=== PATIENT | male | born 1935 | race Caucasian/White ===

== ENCOUNTER 2019-09-25 09:38 | Inpatient (IN) | payer OTHER, MEDICARE ==
--- NOTE | 2019-09-25 09:44 | PDOC ---
History of Present Illness - General Stated Complaint: GENERALIZED WEAKNESS Time Seen by Provider: 09/25/19 09:42 History Source: Patient Exam Limitations: No Limitations - History of Present Illness Initial Comments: 84-year-old male with past medical history of hypertension, hyperlipidemia, CHF, diabetes, COPD, CAD status post CABG 2008, prostate cancer, recurrent pneumonia requiring hospitalization 2018 with home 02 at discharge (normal = 2L NC), atrial fibrillation on Xarelto presented to the emergency department for generalized weakness. Patient reported he was prescribed antibiotic yesterday by his primary care doctor, because he began to have bloody cough. He reported he took one dose, but felt very weak today, after he sat down on the toilet to use the bathroom, he was unable to get himself up, due to lack of strength. He denies chest pain, fever, lightheadedness, syncope, abdominal pain, nausea, vomiting, diarrhea, weakness, numbness. EMS reported when they arrived he was satting 89% on 2L, they bumped him up to 6L NC. ROS General: admitted to generalized weakness. denied fever, chills. HEENT: denied sore throat, rhinorrhea, ear pain. Cardiovascular: denied chest pain, palpitations, syncope, diaphoresis. Respiratory: denied shortness of breath, cough, sputum production, hemoptysis. Gastrointestinal: denied abdominal pain, nausea, vomiting, diarrhea, constipation, blood in stool. Genitourinary: denied dysuria, increased urinary frequency, hematuria, urinary incontinence, flank pain. Back: denied back pain. Musculoskeletal: denied joint pain, muscle pain, joint swelling. Neurological: denied headache, dizziness, numbness, tingling, weakness. Integumentary: denied rash, laceration, abrasion. Hematologic/Lymphatic: denied bruising or bleeding. PE Constitutional: Well-nourished, Well-developed, appearing stated age. HEENT: head is normocephalic, atraumatic. EOMI. PERRLA. Neck: supple. Full ROM. Cardiovascular: regular heart rhythm. Normal S1 and S2. no murmurs. no pericardial friction rub. Respiratory: crackles to left base. Gastrointestinal: soft, flat, nontender. normal bowel sounds. no rebound, guarding, or masses. Extremities: peripheral pulses intact and equal. no lower extremity edema noted. Neurological: CN 2-12 grossly intact. moves all four extremities. Psych: awake, alert, oriented x3. follows commands. answers questions appropriately. Past History - Medical History Allergies/Adverse Reactions: Allergies Allergy/AdvReac Type Severity Reaction Status Date / Time No Known Allergies Allergy Verified 09/25/19 10:01 Home Medications: Ambulatory Orders Amlodipine Besylate 10 mg PO DAILY 09/25/19 Apixaban [Eliquis] 2.5 mg PO DAILY 09/25/19 Atorvastatin Ca [Lipitor] 80 mg PO HS 09/25/19 Carbidopa/Levodopa *Cr* 50/200 [Sinemet *Cr* 50/200 -] 1 tab PO DAILY 09/25/19 Carvedilol 25 mg PO DAILY 09/25/19 Cefotaxime Sodium 500 mg PO DAILY 09/25/19 Doxazosin Mesylate 2 mg PO DAILY 09/25/19 Empagliflozin [Jardiance] 25 mg PO DAILY 09/25/19 Ergocalciferol (Vitamin D2) [Vitamin D2] 5,000 unit PO WEEKLY 09/25/19 Furosemide 20 mg PO DAILY 09/25/19 Glimepiride 1 mg PO DAILY 09/25/19 Hydralazine HCl 25 mg PO DAILY 09/25/19 Losartan Potassium 50 mg PO DAILY 09/25/19 Pantoprazole Sodium 40 mg PO DAILY 09/25/19 Ranolazine [Ranexa -] 500 mg PO BID 09/25/19 Tiotropium [place] [Spiriva] 1 inh PO DAILY 09/25/19 - Surgical History Cardiac Surgery: Yes (CABG x 3, carotid endartorectomy) - Immunization History Immunization Up to Date: Yes - Psycho-Social/Smoking History Smoking Status: Yes Smoking History: Never smoked Have you smoked in the past 12 months: No Number of Cigarettes Smoked Daily: 0 If you are a former smoker, when did you quit?: 1986 Cigars Per Day: 0 ED Treatment Course - LABORATORY CBC & Chemistry Diagram: 09/25/19 10:30 09/25/19 10:30 Medical Decision Making - Medical Decision Making 84 year old male with above PMH presented to ED for generalized weakness, Initial Vital Signs Temp Pulse Resp BP Pulse Ox 97.8 F 60 20 159/53 L 100 09/25/19 10:00 09/25/19 10:00 09/25/19 10:00 09/25/19 10:00 09/25/19 10:00 EKG 0946: rate 57, regular rhythm, left axis, [place] 206, first degree AV block, QTc 467, nonspecific ST changes. 09/25/19 12:37 CXR report: Ricki Hoffman Name: [facility] DEPARTMENT OF RADIOLOGY Phys: Charisma Cintron RESIDENT : [id number] Age: 84 Sex: M [facility] Acct: [id number] Loc: [address] Exam Date: 09/25/19 Status: [place] [id number] Unit Number: [id number] EXAM#: TYPE/EXAM: RESULT: RAD/CHEST PA LAT Hemoptysis and crackles in the left lung base Chest x-ray, AP sitting and lateral Since prior chest x-ray dated 09/28/2014, the cardiac silhouette remains slightly enlarged. Interval worsening interstitial and airspace opacities is suggestive of mild ve nous congestion plus or minus pneumonic infiltrates. No gross pneumothorax or pleural effusion are identified Impression: See discussion above. Reported By: Ayaan Denise MD 09/25/195 CHARISMA CINTRON Technologist: Miri Enamorado Transcribed Date/Time: 09/25/191234 Film Replacement Orderer: Ayaan Denise Printed Date/Time: By: Concern for COVID vs CHF exacerbation vs COPD. Will give steroids, COVID test, antibiotics. HCAP, last admitted 2018. Plethoric IVC on bedside ultrasound, decreased cardiac squeeze on bedside ultrasound. Will hold fluid resuscitation for now. Medications ordered Azithromycin Ivpb [Zithromax Ivpb -] 500 mg Dextrose 5%-Water - [D5w -] 250 ml IVPB ONCE Ceftriaxone 1gm - 1X (ONCE) Ceftriaxone [Rocephin -] 1 gm Dextrose 5%-Water - [D5w -] 100 ml IVPB ONCE Methylprednisolone Na Succ [Solu-Medrol -] 125 mg IVPUSH ONCE ONE 09/25/19 13:08 Laboratory Last Values WBC 5.7 K/mm3 (4.0-10.0) 09/25/19 10:30 RBC 3.33 M/mm3 (4.00-5.60) L 09/25/19 10:30 Hgb 9.2 GM/dL (11.7-16.9) L 09/25/19 10:30 Hct 28.6 % (35.4-49) L 09/25/19 10:30 MCV 85.9 fl (80-96) 09/25/19 10:30 MCH 27.6 pg (25.7-33.7) 09/25/19 10:30 MCHC 32.1 g/dl (32.0-35.9) 09/25/19 10:30 RDW 16.5 % (11.9-15.9) H 09/25/19 10:30 Plt Count 149 K/MM3 (134-434) D 09/25/19 10:30 MPV 9.8 fl (7.5-11.1) D 09/25/19 10:30 Absolute Neuts (auto) 4.4 K/mm3 (1.5-8.0) 09/25/19 10:30 Neutrophils % 77.3 % (42.8-82.8) 09/25/19 10:30 Lymphocytes % 7.5 % (8-40) L D 09/25/19 10:30 Monocytes % 12.6 % (3.8-10.2) H 09/25/19 10:30 Eosinophils % 2.1 % (0-4.5) D 09/25/19 10:30 Basophils % 0.5 % (0-2.0) D 09/25/19 10:30 Nucleated RBC % 0 % (0-0) 09/25/19 10:30 PT with INR 19.60 SEC (9.7-13.0) H 09/25/19 10:30 INR 1.65 (0.83-1.09) H 09/25/19 10:30 PTT (Actin FS) 42.3 SECONDS (25.2-36.5) H 09/25/19 10:30 Sodium 138 mmol/L (136-145) 09/25/19 10:30 Potassium 4.5 mmol/L (3.5-5.1) 09/25/19 10:30 Chloride 100 mmol/L (98-107) 09/25/19 10:30 Carbon Dioxide 31 mmol/L (21-32) 09/25/19 10:30 Anion Gap 7 MMOL/L (8-16) L 09/25/19 10:30 BUN 80.7 mg/dL (7-18) H 09/25/19 10:30 Creatinine 3.0 mg/dL (0.55-1.3) H 09/25/19 10:30 Est GFR (CKD-EPI)AfAm 21.28 09/25/19 10:30 Est GFR (CKD-EPI)NonAf 18.36 09/25/19 10:30 Random Glucose 50 mg/dL (74-106) L 09/25/19 10:30 Calcium 8.8 mg/dL (8.5-10.1) 09/25/19 10:30 Ferritin 70.1 ng/ml (8-388) 09/25/19 10:30 Total Bilirubin 0.7 mg/dL (0.2-1) 09/25/19 10:30 AST 18 U/L (15-37) 09/25/19 10:30 ALT 10 U/L (13-61) L 09/25/19 10:30 Alkaline Phosphatase 65 U/L (45-117) 09/25/19 10:30 LD Total 174 U/L (87-246) 09/25/19 10:30 C-Reactive Protein 10.4 MG/DL (0.00-0.3) H 09/25/19 10:30 Total Protein 6.8 g/dl (6.4-8.2) 09/25/19 10:30 Albumin 3.7 g/dl (3.4-5.0) 09/25/19 10:30 No leukocytosis. Anemia. ANÍBAL. No transaminitis. Elevated CRP. Hypoglycemia. -Pt given juice Signout given to admitting team. Discharge - Discharge Information Problems reviewed: Yes Clinical Impression/Diagnosis: Acute hypoxemic respiratory failure, Pulmonary vascular congestion Condition: Stable - Admission Yes - Follow up/Referral - Patient Discharge Instructions - Post Discharge Activity
--- NOTE | 2019-09-25 10:58 | PDOC ---
Documentation entered by Nadiya Musa SCRIBE, acting as scribe for Gayle Hansen MD. Gayle Hansen MD: This documentation has been prepared by the scribe, Nadiya Musa SCRIBE, under my direction and personally reviewed by me in its entirety. I confirm that the documentation accurately reflects all work, treatment, procedures, and medical decision making performed by me. Attending Attestation - Resident Resident Name: Charisma Webster - ED Attending Attestation I have performed the following: I have examined & evaluated the patient, The case was reviewed & discussed with the resident, I agree w/resident's findings & plan, Exceptions are as noted - HPI HPI: 09/25/19 10:17 The patient is an 84-year-old male with a past medical history significant for HTN, HLD, CHF, DM, COPD, CAD s/p CABG (2008), Prostate CA, and recurrent pneumonia (on home 2L home O2) who presents to the emergency department via EMS for weakness. The patient reports he was placed on antibiotics by PCP for episodes of bloody cough yesterday, reports taking a dose today following he has an onset of weakness. The patient reports he sat down on the toilet and had difficulty getting up secondary to weakness. EMS reports on arrival, the patient was saturating at 89% on 2L, and EMS increased the O2 to 6L. Denies fever or chills. Denies syncope, dizziness, nausea, vomiting, or diarrhea. - Physicial Exam PE: 09/25/19 10:51 General: non-toxic appearing HEENT: NCAT Chest: crackles L base, speaking in full sentences, no accessory muscle use, no audible wheezes CVS: + s1 s2, RRR Extremities: FROM, no LE edema Neuro: aox3, speech fluent, face symmetric, no focal deficits - Medical Decision Making 09/25/19 10:53 84 yo M with weakness and recently started on abx for suspected PNA, found to have crackles L lung field, concerning for PNA vs. viral syndrom such as COVID. Less likely PE as patient without SOB or chest pain. Also doubt ACS and EKG wi thout ischemic changes. Plan: -labs -COVID testing -cxr -ctx and azithro -supplemental O2 via NC -steroids (h/o COPD with change in cough and pt hypoxic and requiring greater O2 requirement today) -nebs as needed -admit This clinical encounter is taking place during a federal and state health care emergency attributable to the novel [place] Virus pandemic. The [place] [employer] of the Department of Health and Human Services has declared, pursuant to the Public Health Service Act 319F-3 (42 U.S.C. 247d-6d), that a covered persons activities related to medical countermeasures against COVID-19 will be immune from liability under Federal and State law. Heart Score/ECG Review - ECG Impressions Comment:: 09/25/19 10:57 sinus, rate 58, no ST elevations or depressions, QTc 467 Discharge - Discharge Information Problems reviewed: Yes Clinical Impression/Diagnosis: Acute hypoxemic respiratory failure, Pulmonary vascular congestion Condition: Stable - Follow up/Referral - Patient Discharge Instructions - Post Discharge Activity
[2019-09-25] MEDS ORDERED: methylPREDNISolone NA SUCC 125 MG/2 ML VIAL IVPUSH ONE (12:43)
[2019-09-25] MEDS ORDERED: CEFTRIAXONE 1 GM in DEXTROSE 5%-WATER - 100 ML IVPB ONE (12:43)
[2019-09-25] MEDS ORDERED: AZITHROMYCIN IVPB 500 MG in DEXTROSE 5%-WATER - 250 ML IVPB ONE (12:43)
[2019-09-25 12:46] LABS: BASO % 0.5 % (0-2.0); EOS % 2.1 % (0-4.5); HEMATOCRIT 28.6 % (35.4-49); HEMOGLOBIN 9.2 GM/dL (11.7-16.9); LYMPH % 7.5 % (8-40); MCH 27.6 pg (25.7-33.7); MCHC 32.1 g/dl (32.0-35.9); MEAN CELL VOLUME 85.9 fl (80-96); MEAN PLT VOLUME 9.8 fl (7.5-11.1); MONO % 12.6 % (3.8-10.2); NEUT % 77.3 % (42.8-82.8); PLATELET COUNT 149 K/MM3 (134-434); RBC 3.33 M/mm3 (4.00-5.60); RDW 16.5 % (11.9-15.9); WHITE BLOOD COUNT 5.7 K/mm3 (4.0-10.0)
[2019-09-25 12:56] LABS: INR 1.65 (0.83-1.09); PROTHROMBIN TIME (PATIENT) 19.6 SEC (9.7-13.0)
[2019-09-25 12:59] LABS: ACTIVATED PTT 42.3 SECONDS (25.2-36.5)
[2019-09-25 13:02] LABS: BLOOD UREA NITROGEN 80.7 mg/dL (7-18)
[2019-09-25 13:03] LABS: ALBUMIN 3.7 g/dl (3.4-5.0); BILIRUBIN,TOTAL 0.7 mg/dL (0.2-1); CALCIUM 8.8 mg/dL (8.5-10.1); POTASSIUM 4.5 mmol/L (3.5-5.1); TOT PROT 6.8 g/dl (6.4-8.2)
[2019-09-25] MEDS ORDERED: CEFTRIAXONE 1 GM/50 ML BAG ONE (13:13)
[2019-09-25] MEDS ORDERED: AZITHROMYCIN IVPB 500 MG/250 ML BAG IVPB ONE (13:13)
[2019-09-25] MEDS ORDERED: methylPREDNISolone NA SUCC 125 MG/2 ML VIAL ONE (13:13)
--- NOTE | 2019-09-25 14:47 | HP ---
CHIEF COMPLAINT: Blood tinged cough PCP: Johanny HISTORY OF PRESENT ILLNESS: 84 year old male with known historty of hypertension, HLD, CAD sp CABG x 2 vessels, carotid stenosis, CHF, Afib on Xarelto, Parkinson disease, prostate cancer on radiation therapy, COPD on 2 liters NC at home, recurrent pneumonias, who presents to the ED complaining of severe weakness and bloody cough. Patient reports he went to the doctor who prescribed him antibiotics. He has taken one tab so far. This morning while seated at the toilet he was unable to get up, felt his legs were profoundly weak. He also admitted to generalized malaise. EMS noted his oxygen saturation was 89% at home while on 2 liters. He did not report shortness of breath. Recent Travel: none PAST MEDICAL HISTORY: as above PAST SURGICAL HISTORY: bilateral cataract surgeries, CABG x 2 vessels Family history: unable to recall Social History: Smoking: quit smoking 1986 Alcohol: denies Drugs: denies Allergies No Known Allergies Allergy (Verified 09/25/19 10:01) HOME MEDICATIONS: Home Medications Medication Instructions Recorded Amlodipine Besylate 10 mg PO DAILY 09/25/19 Apixaban [Eliquis] 2.5 mg PO DAILY 09/25/19 Atorvastatin Ca [Lipitor] 80 mg PO HS 09/25/19 Carbidopa/Levodopa *Cr* 50/200 1 tab PO DAILY 09/25/19 [Sinemet *Cr* 50/200 -] Carvedilol 25 mg PO DAILY 09/25/19 Cefotaxime Sodium 500 mg PO DAILY 09/25/19 Doxazosin Mesylate 2 mg PO DAILY 09/25/19 Empagliflozin [Jardiance] 25 mg PO DAILY 09/25/19 Ergocalciferol (Vitamin D2) 5,000 unit PO WEEKLY 09/25/19 [Vitamin D2] Furosemide 20 mg PO DAILY 09/25/19 Glimepiride 1 mg PO DAILY 09/25/19 Hydralazine HCl 25 mg PO DAILY 09/25/19 Losartan Potassium 50 mg PO DAILY 09/25/19 Pantoprazole Sodium 40 mg PO DAILY 09/25/19 Ranolazine [Ranexa -] 500 mg PO BID 09/25/19 Tiotropium [place] [Spiriva] 1 inh PO DAILY 09/25/19 REVIEW OF SYSTEMS CONSTITUTIONAL: Absent: fever, chills, diaphoresis, weight change Present: loss of appetite, generalized weakness HEENT: Absent: rhinorrhea, nasal congestion, throat pain, throat swelling, difficulty swallowing, mouth swelling, ear pain, eye pain, visual changes CARDIOVASCULAR: Absent: chest pain, syncope, palpitations, lightheadedness, peripheral edema RESPIRATORY: Absent: cough, shortness of breath, dyspnea with exertion, orthopnea, wheezing, stridor, hemoptysis GASTROINTESTINAL: Absent: abdominal pain, abdominal distension, nausea, vomiting, diarrhea, constipation, melena, hematochezia GENITOURINARY: Absent: dysuria, frequency, urgency, hesitancy, hematuria, flank pain, genital pain MUSCULOSKELETAL: Absent: myalgia, arthralgia, joint swelling, back pain, neck pain SKIN: Absent: rash, itching, pallor HEMATOLOGIC/IMMUNOLOGIC: Absent: easy bleeding, easy bruising, lymphadenopathy, frequent infections ENDOCRINE: Absent: unexplained weight gain, unexplained weight loss, heat intolerance, cold intolerance NEUROLOGIC: Absent: headache, focal weakness or paresthesias, dizziness, unsteady gait, seizure, mental status changes, bladder or bowel incontinence PSYCHIATRIC: Absent: anxiety, depression, suicidal or homicidal ideation, hallucinations. PHYSICAL EXAMINATION Vital Signs - 24 hr 09/25/19 10:00 Temperature 97.8 F Pulse Rate 60 Respiratory 20 Rate Blood Pressure 159/53 L O2 Sat by Pulse 100 Oximetry (%) GENERAL: Awake, alert, and fully oriented, in no acute distress. HEAD: Normal with no signs of trauma. EYES: Patient with implanted lens and pupils not readily reactive to light, extraocular movements intact, sclera anicteric, conjunctiva clear. No lid lag. EARS, NOSE, THROAT: Ears normal, nares patent, oropharynx clear without exudates. Moist mucous membranes. NECK: Normal range of motion, supple without lymphadenopathy, JVD, or masses. LUNGS: fine crackles at the left mid to left lung base. On visual inspection of the thorax there is accessory muscle use HEART: Regular rate and rhythm, normal S1 and S2 without murmur, rub or gallop. ABDOMEN: Soft, nontender, not distended, normoactive bowel sounds, no guarding, no rebound, no masses. No hepatomegaly or splenomegaly. MUSCULOSKELETAL: Normal range of motion at all joints. No bony deformities or tenderness. No CVA tenderness. UPPER EXTREMITIES: 2+ pulses, warm, well-perfused. No cyanosis. No clubbing. No peripheral edema. LOWER EXTREMITIES: 2+ pulses, warm, well-perfused. No calf tenderness. No peripheral edema. NEUROLOGICAL: Cranial nerves II-XII intact. Normal speech. Normal gait. PSYCHIATRIC: Cooperative. Good eye contact. Appropriate mood and affect. SKIN: Warm, dry, normal turgor, no rashes or lesions noted, normal capillary refill. Laboratory Results - last 24 hr 09/25/19 09/25/19 09/25/19 10:30 10:30 10:30 WBC 5.7 RBC 3.33 L Hgb 9.2 L Hct 28.6 L MCV 85.9 MCH 27.6 MCHC 32.1 RDW 16.5 H Plt Count 149 D MPV 9.8 D Absolute Neuts (auto) 4.4 Neutrophils % 77.3 Lymphocytes % 7.5 L D Monocytes % 12.6 H Eosinophils % 2.1 D Basophils % 0.5 D Nucleated RBC % 0 PT with INR 19.60 H INR 1.65 H PTT (Actin FS) 42.3 H Sodium 138 Potassium 4.5 Chloride 100 Carbon Dioxide 31 Anion Gap 7 L BUN 80.7 H Creatinine 3.0 H Est GFR (CKD-EPI)AfAm 21.28 Est GFR (CKD-EPI)NonAf 18.36 Random Glucose 50 L Lactic Acid Calcium 8.8 Ferritin 70.1 Total Bilirubin 0.7 AST 18 ALT 10 L Alkaline Phosphatase 65 LD Total 174 C-Reactive Protein 10.4 H Total Protein 6.8 Albumin 3.7 09/25/19 10:30 WBC RBC Hgb Hct MCV MCH MCHC RDW Plt Count MPV Absolute Neuts (auto) Neutrophils % Lymphocytes % Monocytes % Eosinophils % Basophils % Nucleated RBC % PT with INR INR PTT (Actin FS) Sodium Potassium Chloride Carbon Dioxide Anion Gap BUN Creatinine Est GFR (CKD-EPI)AfAm Est GFR (CKD-EPI)NonAf Random Glucose Lactic Acid 0.8 Calcium Ferritin Total Bilirubin AST ALT Alkaline Phosphatase LD Total C-Reactive Protein Total Protein Albumin ASSESSMENT/PLAN: 1 mild bloody cough with acute on chronic hypoxic resp failure likely secondary to pneumonia vs bronchitis vs. pulm lesion. - xarelto has been put on hold since admission. - methylprednisolone, antibiotics - cont spiriva - oxygen support to keep sats>91% - nebs RTC and prn - CXR difficult to interpret. Will obtain noncontrast CT of chest to better elucidate - Dr Beckwith (pulm) informed of consultation 2. Afib/CAD - given bloody cough, hold eliquis today - re-evaluate in am if may resume - rate is controlled - serial troponins 3. CHF, in exacerbation - cont furosemide (home med) - cont ranolazine, carvedilol, losartan, statin. - temporarily hold eliquis (bloody coughing episodes). Re-eval in am - weigh daily 4. DM 2 - SSi, accuchecks. - empagliflozin (not available in formulary) 5. cont carbidopa (home med) for Parkinson 6. ANÍBAL on CKD - will consult Dr Sanders who is familiar with patient 7. Urinary retention - has prostatic hypertrophy and most likely case - indwelling catheter placed - Lalita Lantigua consulted (urologist familiar with patient) 8. SCD for DVT prophylaxis Home meds confirmed with . Visit type - Emergency Visit Emergency Visit: Yes ED Registration Date: 09/25/19 Care time: The patient presented to the Emergency Department on the above date and was hospitalized for further evaluation of their emergent condition. - New Patient This patient is new to me today: Yes Date on this admission: 09/26/19 - Critical Care Critical Care patient: No
[2019-09-25] MEDS ORDERED: ALBUTEROL SO4 0.083% IH SOL 2.5 MG/3 ML VIAL.NEB. NEB PRN (15:18)
[2019-09-25] MEDS ORDERED: FUROSEMIDE 20 MG TABLET (FP) PO SCH (15:30)
[2019-09-25] MEDS ORDERED: PANTOPRAZOLE SODIUM 40 MG VIAL ONE (15:59)
[2019-09-25] MEDS ORDERED: FUROSEMIDE 40 MG TABLET (FP) ONE (15:59)
--- NOTE | 2019-09-25 16:00 | EKG ---
Test Reason : Blood Pressure : / mmHG Vent. Rate : 057 BPM Atrial Rate : 057 BPM P-R Int : 206 ms QRS Dur : 098 ms QT Int : 480 ms P-R-T Axes : 059 -37 023 degrees QTc Int : 467 ms SINUS BRADYCARDIA LEFT AXIS DEVIATION NONSPECIFIC T WAVE ABNORMALITY PROLONGED QT ABNORMAL ECG WHEN COMPARED WITH ECG OF 28-SEP-2014 11:55, T WAVE INVERSION NO LONGER EVIDENT IN ANTERIOR LEADS QT HAS SHORTENED Confirmed by MD Ru, Donovan ([id number]) on 09/25/2019 4:00:34 PM Referred By: Confirmed By:Donovan Vences MD
[2019-09-25] MEDS: PANTOPRAZOLE SODIUM 40 MG VIAL IVPUSH SCH (17:11)
[2019-09-25] MEDS: INSULIN SLIDING SCALE (NOVOLOG) 1 VIAL SQ SCH ×3 (17:59→22:52)
[2019-09-25] MEDS ORDERED: methylPREDNISolone NA SUCC 40 MG/1 ML VIAL IVPUSH SCH (18:00)
[2019-09-25] MEDS ORDERED: methylPREDNISolone NA SUCC 40 MG/1 ML VIAL ONE (18:46)
[2019-09-25] MEDS: CARVEDILOL 25 MG TABLET (FP) PO SCH (22:14)
[2019-09-25] MEDS: ATORVASTATIN CA 80 MG TABLET (FP) PO SCH (22:14)
[2019-09-25] MEDS: RANOLAZINE E.R. 500 MG TABLET (FP) PO SCH (22:14)
[2019-09-26 00:50] VITALS: BMI 21.1
[2019-09-26 05:52] LABS: URINE APPEARANCE CLEAR; URINE BILIRUBIN NEGATIVE (NEGATIVE); URINE COLOR YELLOW; URINE GLUCOSE (UA) 3+ (NEGATIVE); URINE KETONE NEGATIVE (NEGATIVE); URINE LEUK ESTERASE NEGATIVE (NEGATIVE); URINE NITRITE NEGATIVE (NEGATIVE); URINE PROTEIN NEGATIVE (NEGATIVE); URINE UROBILINOGEN 0.2 mg/dL (0.2-1.0)
[2019-09-26] MEDS: INSULIN SLIDING SCALE (NOVOLOG) 1 VIAL SQ SCH ×4 (06:25→21:41)
[2019-09-26 07:21] LABS: BASO % 0.1 % (0-2.0); HEMATOCRIT 25.4 % (35.4-49); HEMOGLOBIN 8.2 GM/dL (11.7-16.9); LYMPH % 3.2 % (8-40); MCH 27.4 pg (25.7-33.7); MCHC 32.5 g/dl (32.0-35.9); MEAN CELL VOLUME 84.5 fl (80-96); MEAN PLT VOLUME 9.3 fl (7.5-11.1); MONO % 2.1 % (3.8-10.2); NEUT % 94.6 % (42.8-82.8); PLATELET COUNT 142 K/MM3 (134-434); RBC 3.01 M/mm3 (4.00-5.60); RDW 16.2 % (11.9-15.9); WHITE BLOOD COUNT 4.2 K/mm3 (4.0-10.0)
[2019-09-26 07:44] LABS: INR 1.51 (0.83-1.09); PROTHROMBIN TIME (PATIENT) 17.9 SEC (9.7-13.0)
[2019-09-26 07:49] LABS: ALBUMIN 3.5 g/dl (3.4-5.0); BILIRUBIN,TOTAL 1.2 mg/dL (0.2-1); BLOOD UREA NITROGEN 84.7 mg/dL (7-18); CALCIUM 8.6 mg/dL (8.5-10.1); CREATININE 2.9 mg/dL (0.55-1.3); POTASSIUM 4.1 mmol/L (3.5-5.1); TOT PROT 6.7 g/dl (6.4-8.2)
--- NOTE | 2019-09-26 08:35 | CONSULT ---
Consult Consult Specialty:: Nephrology Reason for Consultation:: ANÍBAL - History of Present Illness Chief Complaint: weakness and cough History of Present Illness: Pt is an 84 year old gentleman with pmhx of htn, hld, ckd, cad, cabg, chf, a- fib, parkonsons, prostate cancer and copd who presents with weakness and hemoptysis. He was found to have elevated toll lineman and found to have urinary obstruction. Yanes was placed and he had over a liter of urine in his bladder. He felt better after the yanes. He denies shortness of breath. He denies fevers or chills. He is awake and alert. He was recently on abx for cough. - History Source History Provided By: Patient - Past Medical History Cardio/Vascular: Yes: AFIB, CAD, HTN Renal/: Yes: Renal Inusuff Endocrine: Yes: Diabetes Mellitus - Past Surgical History Past Surgical History: Yes: CABG - Alcohol/Substance Use Hx Alcohol Use: No - Smoking History Smoking history: Never smoked Have you smoked in the past 12 months: No Aproximately how many cigarettes per day: 0 If you are a former smoker, when did you quit?: 1986 Home Medications - Allergies Allergies/Adverse Reactions: Allergies Allergy/AdvReac Type Severity Reaction Status Date / Time No Known Allergies Allergy Verified 09/25/19 10:01 - Home Medications Home Medications: Ambulatory Orders Amlodipine Besylate 10 mg PO DAILY 09/25/19 Apixaban [Eliquis] 2.5 mg PO DAILY 09/25/19 Atorvastatin Ca [Lipitor] 80 mg PO HS 09/25/19 Carbidopa/Levodopa *Cr* 50/200 [Sinemet *Cr* 50/200 -] 1 tab PO DAILY 09/25/19 Carvedilol 25 mg PO DAILY 09/25/19 Cefotaxime Sodium 500 mg PO DAILY 09/25/19 Doxazosin Mesylate 2 mg PO DAILY 09/25/19 Empagliflozin [Jardiance] 25 mg PO DAILY 09/25/19 Ergocalciferol (Vitamin D2) [Vitamin D2] 5,000 unit PO WEEKLY 09/25/19 Furosemide 20 mg PO DAILY 09/25/19 Glimepiride 1 mg PO DAILY 09/25/19 Hydralazine HCl 25 mg PO DAILY 09/25/19 Losartan Potassium 50 mg PO DAILY 09/25/19 Pantoprazole Sodium 40 mg PO DAILY 09/25/19 Ranolazine [Ranexa -] 500 mg PO BID 09/25/19 Tiotropium [place] [Spiriva] 1 inh PO DAILY 09/25/19 Family Medical History Family History: Denies Review of Systems - Review of Systems Constitutional: reports: No Symptoms Eyes: reports: No Symptoms HENT: reports: No Symptoms Neck: reports: No Symptoms Cardiovascular: reports: No Symptoms Respiratory: reports: Cough, Hemoptysis Gastrointestinal: reports: No Symptoms Genitourinary: reports: No Symptoms Musculoskeletal: reports: No Symptoms Integumentary: reports: No Symptoms Neurological: reports: No Symptoms Endocrine: reports: No Symptoms Hematology/Lymphatic: reports: No Symptoms Psychiatric: reports: No Symptoms Physical Exam Vital Signs: Vital Signs Temperature 98.2 F 09/26/19 08:27 Pulse Rate 56 L 09/26/19 08:27 Respiratory Rate 18 09/26/19 08:27 Blood Pressure 138/49 L 09/26/19 08:27 O2 Sat by Pulse Oximetry (%) 99 09/26/19 08:27 Constitutional: Yes: Calm Eyes: Yes: Conjunctiva Clear HENT: Yes: Atraumatic Neck: Yes: Supple Cardiovascular: Yes: S1, S2 Respiratory: Yes: On Nasal O2 Gastrointestinal: Yes: Normal Bowel Sounds, Soft Renal/: Yes: Yanes Present Musculoskeletal: Yes: WNL Edema: No Neurological: Yes: Oriented Psychiatric: Yes: Oriented Labs: CBC, BMP 09/26/19 06:37 09/26/19 06:37 Imaging - Results Cat Scan: Report Reviewed Problem List - Problems (1) Renal insufficiency Code(s): N28.9 - DISORDER OF KIDNEY AND URETER, UNSPECIFIED Assessment/Plan Current Medications Generic Name Dose Route Start Last Admin Trade Name Freq PRN Reason Stop Dose Admin Albuterol Sulfate 1 amp 09/25/19 15:18 Ventolin 0.083% Nebulizer Soln - NEB Q4H PRN SHORT OF BREATH/WHEEZING Amlodipine Besylate 10 mg 09/26/19 10:00 Norvasc - PO DAILY RANJAN Atorvastatin Calcium 80 mg 09/25/19 22:00 09/25/19 22:14 Lipitor - PO 80 mg HS RANJAN Administration Carbidopa/Levodopa 1 combo 09/25/19 22:00 09/26/19 05:52 Sinemet *Cr* 50/200 - PO 1 combo TID RANJAN Administration Carvedilol 25 mg 09/25/19 22:00 09/25/19 22:14 Coreg - PO 25 mg BID RANJAN Administration Doxazosin Mesylate 2 mg 09/26/19 10:00 Cardura - PO DAILY RANJAN Hydralazine HCl 25 mg 09/26/19 10:00 Apresoline - PO DAILY [facility] Insulin Aspart 1 vial 09/25/19 22:29 09/26/19 06:25 Novolog Vial Sliding Scale - SQ 4 units ACHS RANJAN Administration Protocol Pantoprazole Sodium 40 mg 09/25/19 15:15 09/25/19 17:11 Protonix Iv IVPUSH 40 mg DAILY RANJAN Administration Ranolazine 500 mg 09/25/19 22:00 09/25/19 22:14 Ranexa - PO 500 mg BID RANJAN Administration Tamsulosin HCl 0.4 mg 09/26/19 08:30 Flomax - PO DAILY@0830 [facility] Impression 1. ANÍBAL 2. CKD 3. urinary obstruction 4. hemoptysis 5. chf 6. cad 7. htn 8. a-fib Plan - yanes in place - monitor output - monitor for post obstructive diuresis - repeat labs in am - 1/2 ns at 50 cc per hour for 8 hours then stop - check anca - pulm eval for hemoptysis - check ua - will follow
[2019-09-26] MEDS ORDERED: PT OWN MED DRAWER 7, Y5N ONE ×3 (08:50→16:55)
[2019-09-26] MEDS: hydrALAZINE HCL 25 MG TABLET (FP) PO SCH (09:22)
[2019-09-26] MEDS: CARVEDILOL 25 MG TABLET (FP) PO SCH ×2 (09:22→21:39)
[2019-09-26] MEDS: RANOLAZINE E.R. 500 MG TABLET (FP) PO SCH ×2 (09:22→21:39)
[2019-09-26] MEDS: PANTOPRAZOLE SODIUM 40 MG VIAL IVPUSH SCH (09:22)
[2019-09-26] MEDS: amLODIPine BESYLATE 10 MG TABLET (FP) PO SCH (09:22)
[2019-09-26] MEDS: TAMSULOSIN HCL 0.4 MG CAP PO SCH (09:22)
[2019-09-26] MEDS ORDERED: LOSARTAN POTASSIUM 50 MG TABLET (FP) PO SCH (10:00)
[2019-09-26] MEDS: DOXAZOSIN MESYLATE 2 MG TABLET PO SCH (10:19)
[2019-09-26 11:47] LABS: ANISOCYTOSIS 1+; MACROCYTOSIS 1+; PLATELET ESTIMATE DECREASED
[2019-09-26] MEDS ORDERED: SODIUM CHLORIDE 0.45% 1,000 ML IV SCH (12:30)
[2019-09-26] MEDS: AMOX TR/POT CLAV 500MG/125MG TABLETS (FP) PO SCH ×2 (12:43→16:54)
[2019-09-26] MEDS ORDERED: AMOX TR/POT CLAV 875MG/125MG TABLETS (FP) PO SCH (13:00)
--- NOTE | 2019-09-26 13:53 | CON.PULM ---
Consult Consult Specialty:: PULM/CCM Referred by:: Hospitalist Reason for Consultation:: Abnormal CT chest - History of Present Illness Chief Complaint: SOB History of Present Illness: 84 M, O2 dependent (2 L NC) COPD due to previous 3 PPD smoker (quit in the ), hypertension, HLD, CAD, CABG x 2 vessels, carotid stenosis, CHF, Afib on Xarelto, Parkinson disease, prostate cancer (radiation therapy), and recurrent pneumonia. 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 Baseline CT : diffuse ILD with severe emphysema. Admitted via the ER due to progressive SOB and some increase in dry cough. Denies increase in chronic bronchitis symptoms. No hemoptysis. No history that would be consistent with OSAS. CT chest: some increase in bibasilar infiltrates - History Source History Provided By: Patient Limitations to Obtaining History: No Limitations - Past Medical History Cardio/Vascular: Yes: AFIB, CAD, HTN Pulmonary: Yes: Bronchitis, COPD, O2 Dependent, Pneumonia. No: Asthma, Cancer, Previously Intubated, Pulmonary Embolus, Pulmonary Fibrosis, Sleep Apnea Renal/: Yes: Renal Inusuff Endocrine: Yes: Diabetes Mellitus - Past Surgical History Past Surgical History: Yes: CABG - Alcohol/Substance Use Hx Alcohol Use: No - Smoking History Smoking history: Never smoked Have you smoked in the past 12 months: No Aproximately how many cigarettes per day: 0 If you are a former smoker, when did you quit?: 1986 Home Medications - Allergies Allergies/Adverse Reactions: Allergies Allergy/AdvReac Type Severity Reaction Status Date / Time No Known Allergies Allergy Verified 09/25/19 10:01 - Home Medications Home Medications: Ambulatory Orders Amlodipine Besylate 10 mg PO DAILY 09/25/19 Apixaban [Eliquis] 2.5 mg PO DAILY 09/25/19 Atorvastatin Ca [Lipitor] 80 mg PO HS 09/25/19 Carbidopa/Levodopa *Cr* 50/200 [Sinemet *Cr* 50/200 -] 1 tab PO DAILY 09/25/19 Carvedilol 25 mg PO DAILY 09/25/19 Cefotaxime Sodium 500 mg PO DAILY 09/25/19 Doxazosin Mesylate 2 mg PO DAILY 09/25/19 Empagliflozin [Jardiance] 25 mg PO DAILY 09/25/19 Ergocalciferol (Vitamin D2) [Vitamin D2] 5,000 unit PO WEEKLY 09/25/19 Furosemide 20 mg PO DAILY 09/25/19 Glimepiride 1 mg PO DAILY 09/25/19 Hydralazine HCl 25 mg PO DAILY 09/25/19 Losartan Potassium 50 mg PO DAILY 09/25/19 Pantoprazole Sodium 40 mg PO DAILY 09/25/19 Ranolazine [Ranexa -] 500 mg PO BID 09/25/19 Tiotropium [place] [Spiriva] 1 inh PO DAILY 09/25/19 Review of Systems - Review of Systems Constitutional: reports: Malaise. denies: Chills, Fever, Night Sweats, Unintentional Wgt. Loss Eyes: reports: No Symptoms HENT: reports: No Symptoms Neck: reports: No Symptoms Cardiovascular: reports: Shortness of Breath. denies: Chest Pain, Edema, Palpitations Respiratory: reports: Cough, SOB, SOB on Exertion, Wheezing. denies: Hemoptysis , Orthopnea, PND, Snoring Gastrointestinal: reports: No Symptoms Genitourinary: reports: No Symptoms Breasts: reports: No Symptoms Reported Musculoskeletal: reports: No Symptoms Integumentary: reports: No Symptoms Neurological: reports: No Symptoms Endocrine: reports: No Symptoms Hematology/Lymphatic: reports: No Symptoms Psychiatric: reports: No Symptoms Physical Exam Vital Sings: Vital Signs Temperature 98.2 F 09/26/19 08:27 Pulse Rate 56 L 09/26/19 08:27 Respiratory Rate 18 09/26/19 08:27 Blood Pressure 138/49 L 09/26/19 08:27 O2 Sat by Pulse Oximetry (%) 99 09/26/19 08:27 Constitutional: Yes: Well Nourished, No Distress, Calm Eyes: Yes: Conjunctiva Clear, EOM Intact HENT: Yes: Atraumatic, Normocephalic Neck: Yes: Supple, Trachea Midline Cardiovascular: Yes: Pulse Irregular Respiratory: Yes: Cough, Diminished, On Nasal O2, Rhonchi, SOB, SOB on Exertion, Wheezes. No: Accessory Muscle Use, Rales, Stridor, Tachypnea ...Inspection: Yes: WNL ...Clubbing: No Gastrointestinal: Yes: Normal Bowel Sounds, Soft Renal/: Yes: WNL Musculoskeletal: Yes: WNL Extremities: Yes: WNL Edema: No Peripheral Pulses WNL: Yes Integumentary: Yes: WNL Neurological: Yes: WNL, Alert, Oriented ...Motor Strength: WNL Psychiatric: Yes: WNL, Alert, Oriented Labs: CBC, BMP 09/26/19 06:37 09/26/19 06:37 Imaging - Results Chest X-ray: Report Reviewed, Image Reviewed Cat Scan: Report Reviewed, Image Reviewed Problem List - Problems (1) ILD (interstitial lung disease) Code(s): J84.9 - INTERSTITIAL PULMONARY DISEASE, UNSPECIFIED (2) Emphysema lung Code(s): J43.9 - EMPHYSEMA, UNSPECIFIED (3) CHF (congestive heart failure) Code(s): I50.9 - HEART FAILURE, UNSPECIFIED (4) COPD exacerbation Code(s): J44.1 - CHRONIC OBSTRUCTIVE PULMONARY DISEASE W (ACUTE) EXACERBATION (5) DM Diabetes mellitus Code(s): E11.9 - TYPE 2 DIABETES MELLITUS WITHOUT COMPLICATIONS Assessment/Plan IMP: Do not suspect PNA PLAN : Short course of steroids No ABX BD TX No smoking was discussed PFTs as an outpatient Can repeat CT chest in 3 months for follow up Will follow Thank you. Dr Chu
--- NOTE | 2019-09-26 14:07 | PN ---
Progress Note (short form) - Note Progress Note: Consult Dictated-Urology.
--- NOTE | 2019-09-26 14:31 | PN ---
Teaching Attending Note Name of Resident: Duane Hunt ATTENDING PHYSICIAN STATEMENT I saw and evaluated the patient. I reviewed the resident's note and discussed the case with the resident. I agree with the resident's findings and plan as documented. SUBJECTIVE: seen around 12:20 pm . denies any pain , He feels his SOB is better. No N/v. No CP . more SOb when he ambulates . OBJECTIVE: NAD,awake, alert, sense of humor. very Dry MM. Mild bulge of neck veins . CV: RRR, no MRg Lungs: L base lung crackles. otherwise normal air entry and no wheezing. ABd: soft, NT, Nd , NL Bs Ext : No edema or erythema on upper or lower extremities. ASSESSMENT AND PLAN: 84 y/o man with h/o hypertension, HLD, CKD, CAD sp CABG x 2 vessels, carotid stenosis, CHF, Afib, Parkinson disease, prostate cancer on radiation therapy, COPD on 2 liters NC at home, recurrent pneumonias who presented with SOB and was found to have acute resp failure 1- Acute hypoxic respiratory failure deu to Acute COPD exacerbation . No evidence of PNA. no fever or leukocytosis . No evidenc eo fluid overload. He actually looks volume depleted. the crackles in L lung could be due to the interstitial disease seen on CT - case was d/w dr. Witt. - received steroids and imporved last night - start solu-medrola dn switch to prednisone tomorrow - add DuoNebs . hold home spiriva - add symbicort. -received ceftriaxone yesterday , will c ont with Sugmentin x 2 more days only fro anti-inflammatory disease . - cont O2 through NC 2- Mediastinal Lymphadenopathy b/l pleural effusions interstitial disease/ nodular disease in both lungs All these findings need to be followed in 3 month with a XCT scan 3- ANÍBAL on CKD : likely prerenal and a component of post renal frm retention . - cont IVF - renal US reviewed. - cont yanes. - urology consult pending Recs - Hold lasix , hold losartan 4- H/o A fib : - resume eliquis BID - resume coreg . will confirm dosing ( BID? ) 5- HTN: resume norvasc and HZN. cont coreg . all doses to be confirmed 6- Dm: hold oral agents and cont SSI PT eval
--- NOTE | 2019-09-26 14:48 | PN ---
Physical Exam: SUBJECTIVE: Patient seen and examined. Denies further episodes hemoptysis. Yanes in place. OBJECTIVE: Vital Signs Period Temp Pulse Resp BP Sys/Knutson Pulse Ox Last 24 Hr 97.8 F-98.2 F 56-84 18-22 135-147/48-91 92-100 GENERAL: The patient is awake, alert, and fully oriented, in no acute distress. HEENT: NCAT. MMM. LUNGS: LLL crackles, no wheezes, no accessory muscle use. HEART: Regular rate and rhythm, S1, S2 without murmur, rub or gallop. ABDOMEN: Soft, nontender, nondistended, normoactive bowel sounds, no guarding EXTREMITIES: 2+ pulses, warm, well-perfused, no edema. NEUROLOGICAL: Cranial nerves II through XII grossly intact. GENITOURINARY: Yanes in place draining yellow urine; no signs of penile trauma or bleeding SKIN: Warm, dry, normal turgor, no rashes or lesions noted Laboratory Results - last 24 hr 09/25/19 09/25/19 09/25/19 14:30 17:20 17:42 WBC RBC Hgb Hct MCV MCH MCHC RDW Plt Count MPV Absolute Neuts (auto) Neutrophils % Neutrophils % (Manual) Band Neutrophils % Lymphocytes % Lymphocytes % (Manual) Monocytes % Monocytes % (Manual) Eosinophils % Eosinophils % (Manual) Basophils % Basophils % (Manual) Myelocytes % (Man) Promyelocytes % (Man) Blast Cells % (Manual) Nucleated RBC % Metamyelocytes Hypochromia Platelet Estimate Polychromasia Poikilocytosis Anisocytosis Microcytosis Macrocytosis PT with INR INR Sodium Potassium Chloride Carbon Dioxide Anion Gap BUN Creatinine Est GFR (CKD-EPI)AfAm Est GFR (CKD-EPI)NonAf POC Glucometer 148 Random Glucose Calcium Total Bilirubin AST ALT Alkaline Phosphatase Troponin I < 0.02 B-Natriuretic Peptide 6859.0 H Total Protein Albumin Urine Color Urine Appearance Urine pH Ur Specific [place] Urine Protein Urine Glucose (UA) Urine Ketones Urine Blood Urine Nitrite Urine Bilirubin Urine Urobilinogen Ur Leukocyte Esterase Ur Random Creatinine Ur Random Sodium Ur Random Potassium Ur Random Chloride COVID-19 (GIOVANI) Not detected 09/25/19 09/25/19 09/25/19 22:13 22:30 22:30 WBC RBC Hgb Hct MCV MCH MCHC RDW Plt Count MPV Absolute Neuts (auto) Neutrophils % Neutrophils % (Manual) Band Neutrophils % Lymphocytes % Lymphocytes % (Manual) Monocytes % Monocytes % (Manual) Eosinophils % Eosinophils % (Manual) Basophils % Basophils % (Manual) Myelocytes % (Man) Promyelocytes % (Man) Blast Cells % (Manual) Nucleated RBC % Metamyelocytes Hypochromia Platelet Estimate Polychromasia Poikilocytosis Anisocytosis Microcytosis Macrocytosis PT with INR INR Sodium Potassium Chloride Carbon Dioxide Anion Gap BUN Creatinine Est GFR (CKD-EPI)AfAm Est GFR (CKD-EPI)NonAf POC Glucometer 294 Random Glucose Calcium Total Bilirubin AST ALT Alkaline Phosphatase Troponin I B-Natriuretic Peptide Total Protein Albumin Urine Color Urine Appearance Urine pH Ur Specific [place] Urine Protein Urine Glucose (UA) Urine Ketones Urine Blood Urine Nitrite Urine Bilirubin Urine Urobilinogen Ur Leukocyte Esterase Ur Random Creatinine 53.0 Ur Random Sodium < 18 L Ur Random Potassium 37.8 Ur Random Chloride < 11 L COVID-19 (GIOVANI) 09/25/19 09/26/19 09/26/19 22:36 05:39 06:37 WBC 4.2 RBC 3.01 L Hgb 8.2 L Hct 25.4 L MCV 84.5 MCH 27.4 MCHC 32.5 RDW 16.2 H Plt Count 142 MPV 9.3 Absolute Neuts (auto) 4.0 Neutrophils % 94.6 H D Neutrophils % (Manual) 97.0 H Band Neutrophils % 0.0 Lymphocytes % 3.2 L D Lymphocytes % (Manual) 2.0 L Monocytes % 2.1 L D Monocytes % (Manual) 1 L Eosinophils % 0.0 D Eosinophils % (Manual) 0.0 Basophils % 0.1 Basophils % (Manual) 0.0 Myelocytes % (Man) 0 Promyelocytes % (Man) 0 Blast Cells % (Manual) 0 Nucleated RBC % 0 Metamyelocytes 0 Hypochromia 0 Platelet Estimate Decreased Polychromasia 0 Poikilocytosis 1+ Anisocytosis 1+ Microcytosis 1+ Macrocytosis 1+ PT with INR INR Sodium Potassium Chloride Carbon Dioxide Anion Gap BUN Creatinine Est GFR (CKD-EPI)AfAm Est GFR (CKD-EPI)NonAf POC Glucometer 179 Random Glucose Calcium Total Bilirubin AST ALT Alkaline Phosphatase Troponin I B-Natriuretic Peptide Total Protein Albumin Urine Color Yellow Urine Appearance Clear Urine pH 5.0 Ur Specific [place] 1.020 Urine Protein Negative Urine Glucose (UA) 3+ H Urine Ketones Negative Urine Blood Negative Urine Nitrite Negative Urine Bilirubin Negative Urine Urobilinogen 0.2 Ur Leukocyte Esterase Negative Ur Random Creatinine Ur Random Sodium Ur Random Potassium Ur Random Chloride COVID-19 (GIOVANI) 09/26/19 09/26/19 09/26/19 06:37 06:37 06:37 WBC RBC Hgb Hct MCV MCH MCHC RDW Plt Count MPV Absolute Neuts (auto) Neutrophils % Neutrophils % (Manual) Band Neutrophils % Lymphocytes % Lymphocytes % (Manual) Monocytes % Monocytes % (Manual) Eosinophils % Eosinophils % (Manual) Basophils % Basophils % (Manual) Myelocytes % (Man) Promyelocytes % (Man) Blast Cells % (Manual) Nucleated RBC % Metamyelocytes Hypochromia Platelet Estimate Polychromasia Poikilocytosis Anisocytosis Microcytosis Macrocytosis PT with INR 17.90 H INR 1.51 H Sodium 140 Potassium 4.1 Chloride 102 Carbon Dioxide 27 Anion Gap 11 BUN 84.7 H Creatinine 2.9 H Est GFR (CKD-EPI)AfAm 22.17 Est GFR (CKD-EPI)NonAf 19.13 POC Glucometer Random Glucose 176 H Calcium 8.6 Total Bilirubin 1.2 H AST 16 ALT 6 L Alkaline Phosphatase 66 Troponin I < 0.02 B-Natriuretic Peptide Total Protein 6.7 Albumin 3.5 Urine Color Urine Appearance Urine pH Ur Specific [place] Urine Protein Urine Glucose (UA) Urine Ketones Urine Blood Urine Nitrite Urine Bilirubin Urine Urobilinogen Ur Leukocyte Esterase Ur Random Creatinine Ur Random Sodium Ur Random Potassium Ur Random Chloride COVID-19 (GIOVANI) 09/26/19 10:54 WBC RBC Hgb Hct MCV MCH MCHC RDW Plt Count MPV Absolute Neuts (auto) Neutrophils % Neutrophils % (Manual) Band Neutrophils % Lymphocytes % Lymphocytes % (Manual) Monocytes % Monocytes % (Manual) Eosinophils % Eosinophils % (Manual) Basophils % Basophils % (Manual) Myelocytes % (Man) Promyelocytes % (Man) Blast Cells % (Manual) Nucleated RBC % Metamyelocytes Hypochromia Platelet Estimate Polychromasia Poikilocytosis Anisocytosis Microcytosis Macrocytosis PT with INR INR Sodium Potassium Chloride Carbon Dioxide Anion Gap BUN Creatinine Est GFR (CKD-EPI)AfAm Est GFR (CKD-EPI)NonAf POC Glucometer 246 Random Glucose Calcium Total Bilirubin AST ALT Alkaline Phosphatase Troponin I B-Natriuretic Peptide Total Protein Albumin Urine Color Urine Appearance Urine pH Ur Specific [place] Urine Protein Urine Glucose (UA) Urine Ketones Urine Blood Urine Nitrite Urine Bilirubin Urine Urobilinogen Ur Leukocyte Esterase Ur Random Creatinine Ur Random Sodium Ur Random Potassium Ur Random Chloride COVID-19 (GIOVANI) Active Medications Generic Name Dose Route Start Last Admin Trade Name Freq PRN Reason Stop Dose Admin Albuterol Sulfate 1 amp 09/25/19 15:18 Ventolin 0.083% Nebulizer Soln - NEB Q4H PRN SHORT OF BREATH/WHEEZING Albuterol/Ipratropium 1 amp 09/26/19 16:00 Duoneb - NEB RQID RANJAN Amlodipine Besylate 10 mg 09/26/19 10:00 09/26/19 09:22 Norvasc - PO 10 mg DAILY RANJAN Administration Amoxicillin/Clavulanate Potassium 1 tab 09/26/19 12:45 09/26/19 12:43 Augmentin - 500mg Tablet PO 1 tab BID@0800,1730 RANJAN Administration Atorvastatin Calcium 80 mg 09/25/19 22:00 09/25/19 22:14 Lipitor - PO 80 mg HS RANJAN Administration Budesonide/Formoterol Fumarate 2 puff 09/26/19 22:00 Symbicort 160/4.5mcg - IH BID RANJAN Carbidopa/Levodopa 1 combo 09/25/19 22:00 09/26/19 13:35 Sinemet *Cr* 50/200 - PO 1 combo TID RANJAN Administration Carvedilol 25 mg 09/25/19 22:00 09/26/19 09:22 Coreg - PO 25 mg BID RANJAN Administration Doxazosin Mesylate 2 mg 09/26/19 10:00 09/26/19 10:19 Cardura - PO 2 mg DAILY RANJAN Administration Hydralazine HCl 25 mg 09/26/19 10:00 09/26/19 09:22 Apresoline - PO 25 mg DAILY RANJAN Administration Sodium Chloride 1,000 mls @ 50 mls/hr 09/26/19 12:30 09/26/19 12:43 1/2 Normal Saline IV 09/26/19 20:29 50 mls/hr ASDIR RANJAN Administration Insulin Aspart 1 vial 09/25/19 22:29 09/26/19 11:01 Novolog Vial Sliding Scale - SQ 6 units ACHS RANJAN Administration Protocol Methylprednisolone Sodium Succinate 40 mg 09/26/19 14:30 Solu-Medrol - IVPUSH DAILY RANJAN Pantoprazole Sodium 40 mg 09/25/19 15:15 09/26/19 09:22 Protonix Iv IVPUSH 40 mg DAILY RANJAN Administration Ranolazine 500 mg 09/25/19 22:00 09/26/19 09:22 Ranexa - PO 500 mg BID RANJAN Administration Tamsulosin HCl 0.4 mg 09/26/19 08:30 09/26/19 09:22 Flomax - PO 0.4 mg DAILY@0830 RANJAN Administration IMAGING: * CT chest: In comparison to a 2013 CT exam interval development of several nodular opacities are noted within the left lower lobe posteriorly probably representing infectious/inflammatory infiltrates and less likely neoplastic disease. Correlate clinically and with close follow-up CT. Interval development of bilateral mildly increased lung attenuation is seen diffusely - ? due to possible interstitial pulmonary vascular congestion versus acute or c hronic interstitial pneumonitis. Clinical/laboratory correlation is suggested. Development of trace bilateral pleural effusions is noted with associated mild pleural thickening. Multichamber cardiomegaly is visualized which is probably somewhat increased. Status post median sternotomy with CABG as on the prior exam. Centrilobular emphysema is again seen including mild stable focal right upper lobe parenchymal scarring. Interval development of mild nonspecific mediastinal lymphadenopathy is noted. Correlate clinically and with close follow-up CT. * Renal/ bladder U/S: 1. Mildly atrophic kidneys with no evidence of hydronephrosis or obstructive uropathy. 2. Technically inadequate evaluation of the urinary bladder. ASSESSMENT/PLAN: 84 y.o. M HTN, HLD, CAD sp CABG x 2 vessels, carotid stenosis (s/p left endarterectomy), CHF, Afib on eliquis, DM, Parkinson disease, prostate cancer on radiation therapy, COPD on 2 liters NC at home, recurrent pneumonias presenting with generalized weakness, hypoxia and 1 episode hemoptysis. #Acute hypoxic respiratory failure 2/2 COPD exacerbation -CXR airspace opacities, mild venous congestion- no obvious infiltrates noted -CT chest findings as above -continue steroids; short course, taper tomorrow 09/26 -continue duonebs, symbicort; holding home spiriva -augmentin for inflammatory airway dz- cont x 2 days (3 days total abx) -O2 supplementation prn- on 2L home O2 -pulm Dr. Chu following -will need repeat CT chest in 3 months as outpatient-- noted to have mediastinal lymphadenpathy + several nodular opacities #Hemoptysis -1 x episode, no further episodes -restarted eliquis (2.5mg BID) #Urinary retention #FRANCISCO -yanes in place draining well -urology consulted- Dr. Hunt -renal followin/2 NS @ 50cc/hr for 8 hours then d/c. F/u ANCA. -renal/ bladder U/S: Mildly atrophic kidneys with no evidence of hydronephrosis or obstructive uropathy. -hold ACEi #CHF -spoke w/ patients PCP; no recent lasix use at home -continue home htn medications; holding acei in setting of francisco -Is & Os -daily weights #A-fib -EKG showing sinus bradycardia rate 57 (qtc 467) -resume eliquis -rsume coreg (25mg BID) #Parkinsons disease -continue carbidopa/levodopa #DM -holding home oral agents -ISS #FEN -no standing fluids -trend & replete lytes prn -diabetic/ na controlled diet #ppx dvt: -on eliquis gi: protonix 40mg PO daily #Dispo ctm telemetry Visit type - Emergency Visit Emergency Visit: No - New Patient This patient is new to me today: Yes Date on this admission: 09/26/19 - Critical Care Critical Care patient: No ATTENDING PHYSICIAN STATEMENT I saw and evaluated the patient. I reviewed the resident's note and discussed the case with the resident. I agree with the resident's findings and plan as documented. SUBJECTIVE: OBJECTIVE: ASSESSMENT AND PLAN:
[2019-09-26] MEDS: methylPREDNISolone NA SUCC 40 MG/1 ML VIAL IVPUSH SCH (14:57)
[2019-09-26] MEDS ORDERED: ERGOCALCIFEROL (VIT D2) 50,000 UNIT (1.25 MG) CAPSULE PO SCH ×2 (15:45→17:27)
[2019-09-26] MEDS: ALBUTEROL SO4 2.5/IPRATROPIUM 0.5 INH SOL 3 ML VIAL.NEB. NEB SCH ×2 (16:04→20:18)
--- NOTE | 2019-09-26 17:37 | CONS ---
DATE OF CONSULTATION: DATE OF DICTATION: 09/26/2019 HISTORY OF PRESENT ILLNESS: The patient is an 84-year-old male admitted via the emergency room yesterday with history of near syncope and a bloody cough for the past several days. The patient was seen by his private medical doctor and prescribed antibiotics 1 day prior to that. He states that in the morning while on the toilet he was unable to stand up, felt his lower extremities very weak and had nausea but no vomiting. Patient does have history of high blood pressure, dyslipidemia, coronary artery disease. He is status post coronary bypass graft surgery at [place], also carotid endarterectomy. He also has history of congestive heart failure, atrial fibrillation, Parkinson's disease. He was diagnosed with localized prostate cancer 10 years earlier and underwent a full course of external beam radiation therapy. He is on home oxygen due to COPD. He has had history of recurrent pneumonias in the past. Patient denies any recent travel. He states that he stopped smoking in 1986. ALLERGIES: He denies any allergies. MEDICATION: He is on multiple medications including Norvasc, Eliquis, Lipitor, Sinemet, carvedilol, Cardura 2 mg, Jardiance, Lasix, glimepiride, hydralazine, losartan, a PPI, Ranexa and Spiriva. PHYSICAL EXAMINATION: General: Presently he is alert and oriented, in no distress. Abdomen: Soft. Genitalia: Atraumatic. Testes are atrophic and nontender. Sandoval is patent. Urine is clear. His prostate is 2+, firm, nontender. Rectal tone is poor. LABORATORY: The patient had a blood workup which revealed a white count of 4.2, hemoglobin and hematocrit was 8.2/25.4, platelets were 142. The patient's PT, INR is 17.9 over 1.251. His urine had 3+ glucose and no blood. COVID swab was non-detected. A renal ultrasound performed this morning revealed mild atrophic kidneys with no evidence of hydronephrosis or obstructive uropathy. The bladder was collapsed due to a Sandoval catheter. The patient had the Sandoval placed in the emergency room after bladder scan revealed 1200 mL of urine. The patient does complain of prostatism including frequency, terminal dribbling, hesitancy, and nocturia x4. IMPRESSION: At present this is an 84-year-old male with multiple medical problems, history of cancer of the prostate followed a [facility]. 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 Will recommend placing the patient on Flomax and discontinuing the Sandoval in the a.m. to give a trial at voiding. Patient will follow up at [facility] after discharge. Will follow with you. ANDREW HERNANDEZ M.D. [id number]
[2019-09-26] MEDS: APIXABAN 2.5 MG TABLET PO SCH (21:39)
[2019-09-26] MEDS: ATORVASTATIN CA 80 MG TABLET (FP) PO SCH (21:39)
[2019-09-26] MEDS: BUDESONIDE/FORMETEROL FUMARATE 160/4.5 mcg INHALER IH SCH (21:58)
[2019-09-27] MEDS: INSULIN SLIDING SCALE (NOVOLOG) 1 VIAL SQ SCH ×4 (06:39→22:20)
[2019-09-27 06:51] LABS: HEMATOCRIT 26.3 % (35.4-49); HEMOGLOBIN 8.6 GM/dL (11.7-16.9); MCH 27.8 pg (25.7-33.7); MCHC 32.8 g/dl (32.0-35.9); MEAN CELL VOLUME 84.9 fl (80-96); PLATELET COUNT 149 K/MM3 (134-434); RDW 16.3 % (11.9-15.9); WHITE BLOOD COUNT 8.1 K/mm3 (4.0-10.0)
[2019-09-27 06:57] LABS: ALBUMIN 3.5 g/dl (3.4-5.0); BILIRUBIN,TOTAL 0.8 mg/dL (0.2-1); BLOOD UREA NITROGEN 90.3 mg/dL (7-18); CALCIUM 8.6 mg/dL (8.5-10.1); CREATININE 2.8 mg/dL (0.55-1.3); MAGNESIUM 3.6 mg/dL (1.8-2.4); PHOSPHOROUS 4.9 mg/dL (2.5-4.9); TOT PROT 6.6 g/dl (6.4-8.2)
[2019-09-27] MEDS: AMOX TR/POT CLAV 500MG/125MG TABLETS (FP) PO SCH ×2 (08:07→17:27)
[2019-09-27] MEDS: TAMSULOSIN HCL 0.4 MG CAP PO SCH (08:11)
[2019-09-27] MEDS: ALBUTEROL SO4 2.5/IPRATROPIUM 0.5 INH SOL 3 ML VIAL.NEB. NEB SCH ×4 (08:22→20:24)
[2019-09-27] MEDS ORDERED: PT OWN MED DRAWER 7, Y5N ONE (09:25)
[2019-09-27] MEDS: amLODIPine BESYLATE 10 MG TABLET (FP) PO SCH (09:41)
[2019-09-27] MEDS: APIXABAN 2.5 MG TABLET PO SCH ×2 (09:41→22:03)
[2019-09-27] MEDS: PANTOPRAZOLE 40 MG TABLET PO SCH (09:41)
[2019-09-27] MEDS: RANOLAZINE E.R. 500 MG TABLET (FP) PO SCH ×2 (09:41→22:03)
[2019-09-27] MEDS: methylPREDNISolone NA SUCC 40 MG/1 ML VIAL IVPUSH SCH (09:41)
[2019-09-27] MEDS: hydrALAZINE HCL 25 MG TABLET (FP) PO SCH ×2 (09:41→22:02)
[2019-09-27] MEDS: DOXAZOSIN MESYLATE 2 MG TABLET PO SCH (09:41)
[2019-09-27] MEDS: CARVEDILOL 25 MG TABLET (FP) PO SCH ×2 (09:41→22:03)
[2019-09-27] MEDS: BUDESONIDE/FORMETEROL FUMARATE 160/4.5 mcg INHALER IH SCH (09:42)
[2019-09-27] MEDS: DOCUSATE SODIUM 100 MG CAPSULE (FP) PO SCH (13:13)
--- NOTE | 2019-09-27 13:49 | PN ---
Progress Note, Physician History of Present Illness: Pt seen and examined at bedside. He is awake and alert. He is ambulating with rehab. He has not voided since yanes was removed. - Current Medication List Current Medications: Active Medications Albuterol Sulfate (Ventolin 0.083% Nebulizer Soln -) 1 amp NEB Q4H PRN PRN Reason: SHORT OF BREATH/WHEEZING Albuterol/Ipratropium (Duoneb -) 1 amp NEB RQID [facility] Last Admin: 09/27/19 08:22 Dose: 1 amp Documented by: Amlodipine Besylate (Norvasc -) 10 mg PO DAILY [facility] Last Admin: 09/27/19 09:41 Dose: 10 mg Documented by: Amoxicillin/Clavulanate Potassium (Augmentin - 500mg Tablet) 1 tab PO BID@0800,1730 [facility] Last Admin: 09/27/19 08:07 Dose: 1 tab Documented by: Apixaban (Eliquis -) 2.5 mg PO BID [facility] Last Admin: 09/27/19 09:41 Dose: 2.5 mg Documented by: Atorvastatin Calcium (Lipitor -) 80 mg PO HS [facility] Last Admin: 09/26/19 21:39 Dose: 80 mg Documented by: Budesonide/Formoterol Fumarate (Symbicort 160/4.5mcg -) 2 puff IH BID [facility] Last Admin: 09/27/19 09:42 Dose: 2 puff Documented by: Carbidopa/Levodopa (Sinemet *Cr* 25/100 -) 3 combo PO TID [facility] Last Admin: 09/27/19 13:13 Dose: 3 combo Documented by: Carvedilol (Coreg -) 25 mg PO BID [facility] Last Admin: 09/27/19 09:41 Dose: 25 mg Documented by: Docusate Sodium (Colace -) 100 mg PO DAILY [facility] Last Admin: 09/27/19 13:13 Dose: 100 mg Documented by: Doxazosin Mesylate (Cardura -) 2 mg PO DAILY [facility] Last Admin: 09/27/19 09:41 Dose: 2 mg Documented by: Ergocalciferol (Drisdol -) 50,000 unit PO We [facility] Last Admin: 09/26/19 17:28 Dose: 50,000 unit Documented by: Hydralazine HCl (Apresoline -) 25 mg PO DAILY [facility] Last Admin: 09/27/19 09:41 Dose: 25 mg Documented by: Insulin Aspart (Novolog Vial Sliding Scale -) 1 vial SQ ACHS [facility]; Protocol Last Admin: 09/27/19 11:43 Dose: 4 units Documented by: Methylprednisolone Sodium Succinate (Solu-Medrol -) 40 mg IVPUSH DAILY [facility] Last Admin: 09/27/19 09:41 Dose: 40 mg Documented by: Pantoprazole Sodium (Protonix -) 40 mg PO DAILY [facility] Last Admin: 09/27/19 09:41 Dose: 40 mg Documented by: Ranolazine (Ranexa -) 500 mg PO BID [facility] Last Admin: 09/27/19 09:41 Dose: 500 mg Documented by: Tamsulosin HCl (Flomax -) 0.4 mg PO DAILY@0830 [facility] Last Admin: 09/27/19 08:11 Dose: 0.4 mg Documented by: - Objective Vital Signs: Vital Signs Temperature 98 F 09/27/19 10:00 Pulse Rate 58 L 09/27/19 10:00 Respiratory Rate 18 09/27/19 10:00 Blood Pressure 146/47 L 09/27/19 10:00 O2 Sat by Pulse Oximetry (%) 100 09/27/19 09:00 Constitutional: Yes: Calm Eyes: Yes: Conjunctiva Clear HENT: Yes: Atraumatic Neck: Yes: Supple Cardiovascular: Yes: S1, S2 Respiratory: Yes: On Nasal O2 Gastrointestinal: Yes: Soft Genitourinary: Yes: WNL Musculoskeletal: Yes: WNL Edema: No Neurological: Yes: Oriented Psychiatric: Yes: Oriented Labs: CBC, BMP 09/27/19 06:05 09/27/19 06:05 INR, PTT INR 1.51 (0.83-1.09) H 09/26/19 06:37 Problem List - Problems (1) Renal insufficiency Code(s): N28.9 - DISORDER OF KIDNEY AND URETER, UNSPECIFIED Assessment/Plan Current Medications Generic Name Dose Route Start Last Admin Trade Name Freq PRN Reason Stop Dose Admin Albuterol Sulfate 1 amp 09/25/19 15:18 Ventolin 0.083% Nebulizer Soln - NEB Q4H PRN SHORT OF BREATH/WHEEZING Albuterol/Ipratropium 1 amp 09/26/19 16:00 09/27/19 08:22 Duoneb - NEB 1 amp RQID [facility] Administration Amlodipine Besylate 10 mg 09/26/19 10:00 09/27/19 09:41 Norvasc - PO 10 mg DAILY [facility] Administration Amoxicillin/Clavulanate Potassium 1 tab 09/26/19 12:45 09/27/19 08:07 Augmentin - 500mg Tablet PO 1 tab BID@0800,1730 [facility] Administration Apixaban 2.5 mg 09/26/19 22:00 09/27/19 09:41 Eliquis - PO 2.5 mg BID [facility] Administration Atorvastatin Calcium 80 mg 09/25/19 22:00 09/26/19 21:39 Lipitor - PO 80 mg HS [facility] Administration Budesonide/Formoterol Fumarate 2 puff 09/26/19 22:00 09/27/19 09:42 Symbicort 160/4.5mcg - IH 2 puff BID [facility] Administration Carbidopa/Levodopa 3 combo 09/26/19 22:00 09/27/19 13:13 Sinemet *Cr* 25/100 - PO 3 combo TID [facility] Administration Carvedilol 25 mg 09/25/19 22:00 09/27/19 09:41 Coreg - PO 25 mg BID [facility] Administration Docusate Sodium 100 mg 09/27/19 11:45 09/27/19 13:13 Colace - PO 100 mg DAILY [facility] Administration Doxazosin Mesylate 2 mg 09/26/19 10:00 09/27/19 09:41 Cardura - PO 2 mg DAILY [facility] Administration Ergocalciferol 50,000 unit 09/26/19 17:27 09/26/19 17:28 Drisdol - PO 50,000 unit We [facility] Administration Hydralazine HCl 25 mg 09/26/19 10:00 09/27/19 09:41 Apresoline - PO 25 mg DAILY [facility] Administration Insulin Aspart 1 vial 09/25/19 22:29 09/27/19 11:43 Novolog Vial Sliding Scale - SQ 4 units ACHS [facility] Administration Protocol Methylprednisolone Sodium Succinate 40 mg 09/26/19 14:30 09/27/19 09:41 Solu-Medrol - IVPUSH 40 mg DAILY [facility] Administration Pantoprazole Sodium 40 mg 09/27/19 10:00 09/27/19 09:41 Protonix - PO 40 mg DAILY [facility] Administration Ranolazine 500 mg 09/25/19 22:00 09/27/19 09:41 Ranexa - PO 500 mg BID [facility] Administration Tamsulosin HCl 0.4 mg 09/26/19 08:30 09/27/19 08:11 Flomax - PO 0.4 mg DAILY@0830 [facility] Administration Laboratory Tests 10/02/14 09/25/19 09/25/19 05:45 10:30 10:30 Hgb 9.2 L INR Creatinine 1.4 H D 3.0 H Urine Protein Urine Glucose (UA) Urine Blood Ur Random Sodium ASTON Screen c-ANCA Proteinase 3 (PR3) p-ANCA Atypical p-ANCA Myeloperoxidase Ab Glomerular Base Memb Ab COVID-19 (GIOVANI) 09/25/19 09/25/19 09/25/19 14:30 22:30 22:36 Hgb INR Creatinine Urine Protein Negative Urine Glucose (UA) 3+ H Urine Blood Negative Ur Random Sodium < 18 L ASTON Screen c-ANCA Proteinase 3 (PR3) p-ANCA Atypical p-ANCA Myeloperoxidase Ab Glomerular Base Memb Ab COVID-19 (GIOVANI) Not detected 09/26/19 09/26/19 09/26/19 06:37 06:37 06:37 Hgb 8.2 L INR 1.51 H Creatinine 2.9 H Urine Protein Urine Glucose (UA) Urine Blood Ur Random Sodium ASTON Screen c-ANCA Proteinase 3 (PR3) p-ANCA Atypical p-ANCA Myeloperoxidase Ab Glomerular Base Memb Ab COVID-19 (GIOVANI) 09/27/19 06:05 Hgb INR Creatinine Urine Protein Urine Glucose (UA) Urine Blood Ur Random Sodium ASTON Screen Pending c-ANCA Pending Proteinase 3 (PR3) Pending p-ANCA Pending Atypical p-ANCA Pending Myeloperoxidase Ab Pending Glomerular Base Memb Ab Pending COVID-19 (GIOVANI) Impression 1. ANÍBAL 2. CKD 3. urinary obstruction 4. hemoptysis 5. chf 6. cad 7. htn 8. 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
--- NOTE | 2019-09-27 14:38 | PN ---
Progress Note (short form) - Note Progress Note: Breathing feels a little better today. Less SOB and cough. Was able to ambulate with PT. No acute events overnight. Intake & Output 09/24/19 09/25/19 09/26/19 09/27/19 23:59 23:59 23:59 23:59 Intake Total 100 1520 690 Output Total 1100 1200 300 Balance -1000 320 390 Weight 127 lb 124 lb 6.4 oz 126 lb 9.6 oz Last Vital Signs Temp Pulse Resp BP Pulse Ox 98 F 58 L 18 146/47 L 100 09/27/19 10:00 09/27/19 10:00 09/27/19 10:00 09/27/19 10:00 09/27/19 09:00 Active Medications Albuterol Sulfate (Ventolin 0.083% Nebulizer Soln -) 1 amp NEB Q4H PRN PRN Reason: SHORT OF BREATH/WHEEZING Albuterol/Ipratropium (Duoneb -) 1 amp NEB RQID [facility] Last Admin: 09/27/19 08:22 Dose: 1 amp Documented by: Amlodipine Besylate (Norvasc -) 10 mg PO DAILY [facility] Last Admin: 09/27/19 09:41 Dose: 10 mg Documented by: Amoxicillin/Clavulanate Potassium (Augmentin - 500mg Tablet) 1 tab PO BID@0800,1730 [facility] Last Admin: 09/27/19 08:07 Dose: 1 tab Documented by: Apixaban (Eliquis -) 2.5 mg PO BID [facility] Last Admin: 09/27/19 09:41 Dose: 2.5 mg Documented by: Atorvastatin Calcium (Lipitor -) 80 mg PO HS [facility] Last Admin: 09/26/19 21:39 Dose: 80 mg Documented by: Budesonide/Formoterol Fumarate (Symbicort 160/4.5mcg -) 2 puff IH BID [facility] Last Admin: 09/27/19 09:42 Dose: 2 puff Documented by: Carbidopa/Levodopa (Sinemet *Cr* 25/100 -) 3 combo PO TID [facility] Last Admin: 09/27/19 13:13 Dose: 3 combo Documented by: Carvedilol (Coreg -) 25 mg PO BID [facility] Last Admin: 09/27/19 09:41 Dose: 25 mg Documented by: Docusate Sodium (Colace -) 100 mg PO DAILY [facility] Last Admin: 09/27/19 13:13 Dose: 100 mg Documented by: Doxazosin Mesylate (Cardura -) 2 mg PO DAILY [facility] Last Admin: 09/27/19 09:41 Dose: 2 mg Documented by: Ergocalciferol (Drisdol -) 50,000 unit PO We [facility] Last Admin: 09/26/19 17:28 Dose: 50,000 unit Documented by: Hydralazine HCl (Apresoline -) 25 mg PO DAILY [facility] Last Admin: 09/27/19 09:41 Dose: 25 mg Documented by: Insulin Aspart (Novolog Vial Sliding Scale -) 1 vial SQ ACHS [facility]; Protocol Last Admin: 09/27/19 11:43 Dose: 4 units Documented by: Methylprednisolone Sodium Succinate (Solu-Medrol -) 40 mg IVPUSH DAILY [facility] Last Admin: 09/27/19 09:41 Dose: 40 mg Documented by: Pantoprazole Sodium (Protonix -) 40 mg PO DAILY [facility] Last Admin: 09/27/19 09:41 Dose: 40 mg Documented by: Ranolazine (Ranexa -) 500 mg PO BID [facility] Last Admin: 09/27/19 09:41 Dose: 500 mg Documented by: Tamsulosin HCl (Flomax -) 0.4 mg PO DAILY@0830 [facility] Last Admin: 09/27/19 08:11 Dose: 0.4 mg Documented by: Constitutional: Yes: Well Nourished, No Distress, Calm Eyes: Yes: Conjunctiva Clear, EOM Intact HENT: Yes: Atraumatic, Normocephalic Neck: Yes: Supple, Trachea Midline Cardiovascular: Yes: Pulse Irregular Respiratory: Yes: Cough, Diminished, On Nasal O2, Rhonchi. No: Accessory Muscle Use, Rales, Stridor, Tachypnea ...Inspection: Yes: WNL ...Clubbing: No Gastrointestinal: Yes: Normal Bowel Sounds, Soft Renal/: Yes: WNL Musculoskeletal: Yes: WNL Extremities: Yes: WNL Edema: No Peripheral Pulses WNL: Yes Integumentary: Yes: WNL Neurological: Yes: WNL, Alert, Oriented ...Motor Strength: WNL Psychiatric: Yes: WNL, Alert, Oriented Labs: Laboratory Results - last 24 hr 06/09/26/19 09/26/19 15:39 16:05 21:38 WBC RBC Hgb Hct MCV MCH MCHC RDW Plt Count MPV Sodium Potassium Chloride Carbon Dioxide Anion Gap BUN Creatinine Est GFR (CKD-EPI)AfAm Est GFR (CKD-EPI)NonAf POC Glucometer 201 225 Random Glucose Calcium Phosphorus Magnesium Total Bilirubin AST ALT Alkaline Phosphatase Troponin I < 0.02 Total Protein Albumin 09/27/19 09/27/19 09/27/19 05:19 06:05 06:05 WBC 8.1 RBC 3.10 L Hgb 8.6 L Hct 26.3 L MCV 84.9 MCH 27.8 MCHC 32.8 RDW 16.3 H Plt Count 149 MPV 9.0 Sodium 138 Potassium 4.0 Chloride 102 Carbon Dioxide 28 Anion Gap 9 BUN 90.3 H Creatinine 2.8 H Est GFR (CKD-EPI)AfAm 23.13 Est GFR (CKD-EPI)NonAf 19.96 POC Glucometer 177 Random Glucose 174 H Calcium 8.6 Phosphorus 4.9 Magnesium 3.6 H Total Bilirubin 0.8 AST 19 ALT 8 L Alkaline Phosphatase 68 Troponin I Total Protein 6.6 Albumin 3.5 09/27/19 11:19 WBC RBC Hgb Hct MCV MCH MCHC RDW Plt Count MPV Sodium Potassium Chloride Carbon Dioxide Anion Gap BUN Creatinine Est GFR (CKD-EPI)AfAm Est GFR (CKD-EPI)NonAf POC Glucometer 170 Random Glucose Calcium Phosphorus Magnesium Total Bilirubin AST ALT Alkaline Phosphatase Troponin I Total Protein Albumin Imaging - Results Chest X-ray: Report Reviewed, Image Reviewed Cat Scan: Report Reviewed, Image Reviewed Problem List - Problems (1) ILD (interstitial lung disease) Code(s): J84.9 - INTERSTITIAL PULMONARY DISEASE, UNSPECIFIED (2) Emphysema lung Code(s): J43.9 - EMPHYSEMA, UNSPECIFIED (3) CHF (congestive heart failure) Code(s): I50.9 - HEART FAILURE, UNSPECIFIED (4) COPD exacerbation Code(s): J44.1 - CHRONIC OBSTRUCTIVE PULMONARY DISEASE W (ACUTE) EXACERBATION (5) DM Diabetes mellitus Code(s): E11.9 - TYPE 2 DIABETES MELLITUS WITHOUT COMPLICATIONS Assessment/Plan IMP: Do not suspect PNA PLAN : Short course of steroids : Can change to PO BD TX No smoking was discussed PFTs as an outpatient Can repeat CT chest in 3 months for follow up Dr Chu Problem List - Problems (1) ILD (interstitial lung disease) Code(s): J84.9 - INTERSTITIAL PULMONARY DISEASE, UNSPECIFIED (2) Emphysema lung Code(s): J43.9 - EMPHYSEMA, UNSPECIFIED (3) CHF (congestive heart failure) Code(s): I50.9 - HEART FAILURE, UNSPECIFIED (4) COPD exacerbation Code(s): J44.1 - CHRONIC OBSTRUCTIVE PULMONARY DISEASE W (ACUTE) EXACERBATION (5) DM Diabetes mellitus Code(s): E11.9 - TYPE 2 DIABETES MELLITUS WITHOUT COMPLICATIONS
--- NOTE | 2019-09-27 17:44 | PN ---
Teaching Attending Note Name of Resident: Azeb Daugherty ATTENDING PHYSICIAN STATEMENT I saw and evaluated the patient. I reviewed the resident's note and discussed the case with the resident. I agree with the resident's findings and plan as documented. SUBJECTIVE: seen at around 11 am No fever or chills. no SOB. no abd pain. yanes removed this am but not voided at time of interview OBJECTIVE: NAD,awake, alert, MMM CV: RRR, no MRG Lungs: CTAB . minimal scattered wheezing ABd: soft, NT, Nd , NL Bs . bladder is percussed half way between pubic symphasis and umbilicus Ext : No edema or erythema on upper or lower extremities. ASSESSMENT AND PLAN: 84 y/o man with h/o hypertension, HLD, CKD, CAD sp CABG x 2 vessels, carotid stenosis, CHF, Afib, Parkinson disease, prostate cancer on radiation therapy, COPD on 2 liters NC at home, recurrent pneumonias who presented with SOB and was found to have acute resp failure 1- Acute hypoxic respiratory failure deu to Acute COPD exacerbation .improved - switch to prednisone - cont nebs - cont symbicort - last day of augmentin for anti-inflammatory effect 2- Mediastinal Lymphadenopathy b/l pleural effusions interstitial disease/ nodular disease in both lungs All these findings need to be followed in [address] scan 3- ANÍBAL on CKD : likely prerenal and a component of post renal from retention . - monitor off IVF - obtain post void bladder scan if he voids. If no voiding, will straight cath and wait fro spontaneous void befoer yanes reinsertion - increase flomax - Hold lasix, hold losartan 4- H/o A fib : - eliquis BID - coreg BID . confirmed 5- HTN: norvasc . coreg . increase HZN to home dose BID . doses confirmed 6- Dm: hold oral agents and cont SSI PT eval
--- NOTE | 2019-09-27 18:18 | PN ---
Physical Exam: SUBJECTIVE: Patient seen and examined at bedside. States breathing has improved. Denies chest pain, f/c, n/v, abd pain, urinary bowel symptoms. Yanes in place this AM. Candis PO intake. OBJECTIVE: Vital Signs Period Temp Pulse Resp BP Sys/Knutson Pulse Ox Last 24 Hr 69.4 F-98 F 53-66 18-20 126-149/41-59 98-100 GENERAL: The patient is awake, alert, and fully oriented, in no acute distress. HEENT: NCAT. MMM. LUNGS: LLL crackles, no wheezes, no accessory muscle use. HEART: Regular rate and rhythm, S1, S2 without murmur, rub or gallop. ABDOMEN: Soft, nontender, nondistended, normoactive bowel sounds, no guarding EXTREMITIES: 2+ pulses, warm, well-perfused, no edema. NEUROLOGICAL: Cranial nerves II through XII grossly intact. GENITOURINARY: Yanes in place draining yellow urine; no signs of penile trauma or bleeding SKIN: Warm, dry, normal turgor, no rashes or lesions noted Laboratory Results - last 24 hr 09/26/19 09/27/19 09/27/19 21:38 05:19 06:05 WBC RBC Hgb Hct MCV MCH MCHC RDW Plt Count MPV Sodium 138 Potassium 4.0 Chloride 102 Carbon Dioxide 28 Anion Gap 9 BUN 90.3 H Creatinine 2.8 H Est GFR (CKD-EPI)AfAm 23.13 Est GFR (CKD-EPI)NonAf 19.96 POC Glucometer 225 177 Random Glucose 174 H Calcium 8.6 Phosphorus 4.9 Magnesium 3.6 H Total Bilirubin 0.8 AST 19 ALT 8 L Alkaline Phosphatase 68 Total Protein 6.6 Albumin 3.5 09/27/19 09/27/19 09/27/19 06:05 11:19 17:06 WBC 8.1 RBC 3.10 L Hgb 8.6 L Hct 26.3 L MCV 84.9 MCH 27.8 MCHC 32.8 RDW 16.3 H Plt Count 149 MPV 9.0 Sodium Potassium Chloride Carbon Dioxide Anion Gap BUN Creatinine Est GFR (CKD-EPI)AfAm Est GFR (CKD-EPI)NonAf POC Glucometer 170 174 Random Glucose Calcium Phosphorus Magnesium Total Bilirubin AST ALT Alkaline Phosphatase Total Protein Albumin Active Medications Generic Name Dose Route Start Last Admin Trade Name Freq PRN Reason Stop Dose Admin Albuterol Sulfate 1 amp 09/25/19 15:18 Ventolin 0.083% Nebulizer Soln - NEB Q4H PRN SHORT OF BREATH/WHEEZING Albuterol/Ipratropium 1 amp 09/26/19 16:00 09/27/19 15:54 Duoneb - NEB 1 amp RQID [facility] Administration Amlodipine Besylate 10 mg 09/26/19 10:00 09/27/19 09:41 Norvasc - PO 10 mg DAILY [facility] Administration Amoxicillin/Clavulanate Potassium 1 tab 09/26/19 12:45 09/27/19 17:27 Augmentin - 500mg Tablet PO 09/27/19 23:00 1 tab BID@0800,1730 [facility] Administration Apixaban 2.5 mg 09/26/19 22:00 09/27/19 09:41 Eliquis - PO 2.5 mg BID [facility] Administration Atorvastatin Calcium 80 mg 09/25/19 22:00 09/26/19 21:39 Lipitor - PO 80 mg HS [facility] Administration Budesonide/Formoterol Fumarate 2 puff 09/26/19 22:00 09/27/19 09:42 Symbicort 160/4.5mcg - IH 2 puff BID [facility] Administration Carbidopa/Levodopa 3 combo 09/26/19 22:00 09/27/19 13:13 Sinemet *Cr* 25/100 - PO 3 combo TID [facility] Administration Carvedilol 25 mg 09/25/19 22:00 09/27/19 09:41 Coreg - PO 25 mg BID [facility] Administration Docusate Sodium 100 mg 09/27/19 11:45 09/27/19 13:13 Colace - PO 100 mg DAILY [facility] Administration Doxazosin Mesylate 2 mg 09/26/19 10:00 09/27/19 09:41 Cardura - PO 2 mg DAILY [facility] Administration Ergocalciferol 50,000 unit 09/26/19 17:27 09/26/19 17:28 Drisdol - PO 50,000 unit We [facility] Administration Hydralazine HCl 25 mg 09/27/19 22:00 Apresoline - PO BID [facility] Insulin Aspart 1 vial 09/25/19 22:29 09/27/19 17:28 Novolog Vial Sliding Scale - SQ 4 units ACHS [facility] Administration Protocol Methylprednisolone Sodium Succinate 40 mg 09/26/19 14:30 09/27/19 09:41 Solu-Medrol - IVPUSH 40 mg DAILY [facility] Administration Pantoprazole Sodium 40 mg 09/27/19 10:00 09/27/19 09:41 Protonix - PO 40 mg DAILY [facility] Administration Ranolazine 500 mg 09/25/19 22:00 09/27/19 09:41 Ranexa - PO 500 mg BID [facility] Administration Tamsulosin HCl 0.8 mg 09/28/19 08:30 Flomax - PO DAILY@0830 [facility] IMAGING: * CT chest: In comparison to a 2013 CT exam interval development of several nodular opacities are noted within the left lower lobe posteriorly probably representing infectious/inflammatory infiltrates and less likely neoplastic disease. Correlate clinically and with close follow-up CT. Interval development of bilateral mildly increased lung attenuation is seen diffusely - ? due to possible interstitial pulmonary vascular congestion versus acute or chronic interstitial pneumonitis. Clinical/laboratory correlation is suggested. Development of trace bilateral pleural effusions is noted with associated mild pleural thickening. Multichamber cardiomegaly is visualized which is probably somewhat increased. Status post median sternotomy with CABG as on the prior exam. Centrilobular emphysema is again seen including mild stable focal right upper lobe parenchymal scarring. Interval development of mild nonspecific mediastinal lymphadenopathy is noted. Correlate clinically and with close follow-up CT. * Renal/ bladder U/S: 1. Mildly atrophic kidneys with no evidence of hydronephrosis or obstructive uropathy. 2. Technically inadequate evaluation of the urinary bladder. ASSESSMENT/PLAN: 84 y.o. M HTN, HLD, CAD sp CABG x 2 vessels, carotid stenosis (s/p left endarterectomy), CHF, Afib on eliquis, DM, Parkinson disease, prostate cancer on radiation therapy, COPD on 2 liters NC at home, recurrent pneumonias presenting with generalized weakness, hypoxia and 1 episode hemoptysis. #Acute hypoxic respiratory failure 2/2 COPD exacerbation -CXR airspace opacities, mild venous congestion- no obvious infiltrates noted -CT chest findings as above -s/p IV steroids; will start Prednisone 40 PO tomorrow -continue duonebs, symbicort; holding home spiriva -augmentin for inflammatory airway dz- cont x 2 days (3 days total abx) -O2 supplementation prn- on 2L home O2 -pulm Dr. Chu following #Mediastinal LAD, Interstitial disease, Nodular disease, RUL parenchymal scarring -Per berta jenkins need repeat CT chest in 3 months as outpatient #ANÍBAL on CKD; likely prerenal + post-obstructive uropathy. Improving, Cr 2.9 --> 2.8 -D/c yanes today, will do TOV. If minimal urine output, will straight cath and do bladder scan to check PVR -Will reassess in AM regarding need to insert yanes for d/c -Increase Flomax to 0.8 QD -hold IVf for now -Renal following; immunology panel ordered, results pending -renal/ bladder U/S: Mildly atrophic kidneys with no evidence of hydronephrosis or obstructive uropathy. -Hold Lasix and Losartan #Hemoptysis; Stable, no more acute episodes, HD stable. Can cont home med: Eliquis 2.5 BID #CHF; No acute issues. Per PCP, no recent lasix use at home #HTN; Stable. Cont home meds: Coreg 25 BID, Amlo 10, Ranexa 500 BID, Hydralazine 25 BID #A-fib; Rate-controlled. Cont home meds: Eliquis 2.5 BID, Coreg 25 BID -EKG showing sinus bradycardia rate 57 (qtc 467) #Parkinsons disease; Stable, no acute issues. Cont home med: Carbidopa/levodopa TID #DM; Hold home DM meds. BGM/ISS ACHS. #FEN -no IVf -trend & replete lytes prn -diabetic/na controlled diet #Prophylaxis DVT: Cont home Eliquis GI: Cont home Protonix 40mg PO daily Dispo -Cont to monitor on tele Visit type - Emergency Visit Emergency Visit: Yes ED Registration Date: 09/25/19 Care time: The patient presented to the Emergency Department on the above date and was hospitalized for further evaluation of their emergent condition. - New Patient This patient is new to me today: Yes Date on this admission: 09/27/19 - Critical Care Critical Care patient: No ATTENDING PHYSICIAN STATEMENT I saw and evaluated the patient. I reviewed the resident's note and discussed the case with the resident. I agree with the resident's findings and plan as documented. SUBJECTIVE: OBJECTIVE: ASSESSMENT AND PLAN:
[2019-09-27] MEDS ORDERED: SODIUM CHLORIDE 0.45% 1,000 ML IV SCH (18:30)
[2019-09-27] MEDS ORDERED: guaiFENesin 200 MG/10 ML 10 ML UNIT-DOSE CUPS PO ONE ×2 (21:44→22:45)
[2019-09-27] MEDS: ATORVASTATIN CA 80 MG TABLET (FP) PO SCH (22:03)
[2019-09-28] MEDS ORDERED: guaiFENesin 200 MG/10 ML 10 ML UNIT-DOSE CUPS PO ONE (00:30)
[2019-09-28] MEDS: SENNOSIDES 8.6MG TABLET (FP) PO SCH ×2 (00:40→21:51)
[2019-09-28] MEDS: BUDESONIDE/FORMETEROL FUMARATE 160/4.5 mcg INHALER IH SCH ×3 (00:46→22:31)
[2019-09-28] MEDS ORDERED: ALBUTEROL SO4 2.5/IPRATROPIUM 0.5 INH SOL 3 ML VIAL.NEB. NEB ONE (04:56)
[2019-09-28] MEDS ORDERED: ALBUTEROL SO4 2.5/IPRATROPIUM 0.5 INH SOL 3 ML VIAL.NEB. NEB STA (04:57)
[2019-09-28] MEDS: INSULIN SLIDING SCALE (NOVOLOG) 1 VIAL SQ SCH ×4 (06:13→21:51)
[2019-09-28 07:10] LABS: BASO % 0.1 % (0-2.0); HEMATOCRIT 24.3 % (35.4-49); HEMOGLOBIN 7.9 GM/dL (11.7-16.9); LYMPH % 1.7 % (8-40); MCH 27.4 pg (25.7-33.7); MCHC 32.7 g/dl (32.0-35.9); MEAN CELL VOLUME 83.9 fl (80-96); NEUT % 91.2 % (42.8-82.8); PLATELET COUNT 131 K/MM3 (134-434); RBC 2.89 M/mm3 (4.00-5.60); RDW 16.3 % (11.9-15.9); WHITE BLOOD COUNT 6.9 K/mm3 (4.0-10.0)
[2019-09-28] MEDS: ALBUTEROL SO4 2.5/IPRATROPIUM 0.5 INH SOL 3 ML VIAL.NEB. NEB SCH ×4 (07:33→20:30)
[2019-09-28 07:45] LABS: ALBUMIN 3.4 g/dl (3.4-5.0); BILIRUBIN,TOTAL 0.7 mg/dL (0.2-1); CALCIUM 7.9 mg/dL (8.5-10.1); CREATININE 2.8 mg/dL (0.55-1.3); POTASSIUM 4.5 mmol/L (3.5-5.1); TOT PROT 6.2 g/dl (6.4-8.2)
[2019-09-28] MEDS: TAMSULOSIN HCL 0.4 MG CAP PO SCH (08:31)
[2019-09-28 08:33] LABS: BLOOD UREA NITROGEN 104.9 mg/dL (7-18)
[2019-09-28] MEDS: hydrALAZINE HCL 25 MG TABLET (FP) PO SCH ×2 (09:28→21:51)
[2019-09-28] MEDS: CARVEDILOL 25 MG TABLET (FP) PO SCH ×2 (09:28→21:52)
[2019-09-28] MEDS: predniSONE 20 MG TABLET (UD) PO SCH (09:28)
[2019-09-28] MEDS: APIXABAN 2.5 MG TABLET PO SCH ×2 (09:28→21:52)
[2019-09-28] MEDS: PANTOPRAZOLE 40 MG TABLET PO SCH (09:28)
[2019-09-28] MEDS: DOCUSATE SODIUM 100 MG CAPSULE (FP) PO SCH (09:28)
[2019-09-28] MEDS: amLODIPine BESYLATE 10 MG TABLET (FP) PO SCH (09:28)
[2019-09-28] MEDS: RANOLAZINE E.R. 500 MG TABLET (FP) PO SCH ×2 (09:29→21:51)
[2019-09-28] MEDS: DOXAZOSIN MESYLATE 2 MG TABLET PO SCH (09:33)
[2019-09-28] MEDS ORDERED: PT OWN MED DRAWER 7, Y5N ONE ×2 (09:33→15:05)
[2019-09-28 10:31] LABS: ANISOCYTOSIS 1+; MACROCYTOSIS 0; OVALOCYTE 1+; PLATELET ESTIMATE DECREASED; TARGET CELLS 1+; TEAR DROP CELLS 1+
[2019-09-28] MEDS ORDERED: INSULIN (NOVOLOG) ASPART 100 UNITS/ML 10ML VIAL ONE (12:14)
--- NOTE | 2019-09-28 12:22 | PN ---
Progress Note, Physician History of Present Illness: Pt seen and examined at bedside. He is awake and alert. He does cough at times. He did not tolerate the voiding trial. - Current Medication List Current Medications: Active Medications Albuterol Sulfate (Ventolin 0.083% Nebulizer Soln -) 1 amp NEB Q4H PRN PRN Reason: SHORT OF BREATH/WHEEZING Albuterol/Ipratropium (Duoneb -) 1 amp NEB RQID [facility] Last Admin: 09/28/19 11:14 Dose: 1 amp Documented by: Amlodipine Besylate (Norvasc -) 10 mg PO DAILY [facility] Last Admin: 09/28/19 09:28 Dose: 10 mg Documented by: Apixaban (Eliquis -) 2.5 mg PO BID [facility] Last Admin: 09/28/19 09:28 Dose: 2.5 mg Documented by: Atorvastatin Calcium (Lipitor -) 80 mg PO HS [facility] Last Admin: 09/27/19 22:03 Dose: 80 mg Documented by: Budesonide/Formoterol Fumarate (Symbicort 160/4.5mcg -) 2 puff IH BID [facility] Last Admin: 09/28/19 09:28 Dose: 2 puff Documented by: Carbidopa/Levodopa (Sinemet *Cr* 25/100 -) 3 combo PO TID [facility] Last Admin: 09/28/19 05:39 Dose: 3 combo Documented by: Carvedilol (Coreg -) 25 mg PO BID [facility] Last Admin: 09/28/19 09:28 Dose: 25 mg Documented by: Docusate Sodium (Colace -) 100 mg PO DAILY [facility] Last Admin: 09/28/19 09:28 Dose: 100 mg Documented by: Doxazosin Mesylate (Cardura -) 2 mg PO DAILY [facility] Last Admin: 09/28/19 09:33 Dose: 2 mg Documented by: Ergocalciferol (Drisdol -) 50,000 unit PO We [facility] Last Admin: 09/26/19 17:28 Dose: 50,000 unit Documented by: Hydralazine HCl (Apresoline -) 25 mg PO BID [facility] Last Admin: 09/28/19 09:28 Dose: 25 mg Documented by: Insulin Aspart (Novolog Vial Sliding Scale -) 1 vial SQ ACHS [facility]; Protocol Last Admin: 09/28/19 12:17 Dose: 6 units Documented by: Pantoprazole Sodium (Protonix -) 40 mg PO DAILY [facility] Last Admin: 09/28/19 09:28 Dose: 40 mg Documented by: Prednisone (Deltasone -) 40 mg PO DAILY [facility] Last Admin: 09/28/19 09:28 Dose: 40 mg Documented by: Ranolazine (Ranexa -) 500 mg PO BID [facility] Last Admin: 09/28/19 09:29 Dose: 500 mg Documented by: Senna (Senna -) 2 tab PO HS [facility] Last Admin: 09/28/19 00:40 Dose: 2 tab Documented by: Tamsulosin HCl (Flomax -) 0.8 mg PO DAILY@0830 [facility] Last Admin: 09/28/19 08:31 Dose: 0.8 mg Documented by: - Objective Vital Signs: Vital Signs Temperature 98 F 09/28/19 10:00 Pulse Rate 58 L 09/28/19 10:00 Respiratory Rate 18 09/28/19 10:00 Blood Pressure 130/50 L 09/28/19 10:00 O2 Sat by Pulse Oximetry (%) 100 09/27/19 21:00 Constitutional: Yes: Calm Eyes: Yes: Conjunctiva Clear HENT: Yes: Atraumatic Cardiovascular: Yes: S1, S2 Respiratory: Yes: On Nasal O2 Gastrointestinal: Yes: Soft Genitourinary: Yes: Yanes Present Edema: No Neurological: Yes: Oriented Psychiatric: Yes: Oriented Labs: CBC, BMP 09/28/19 06:45 09/28/19 06:45 INR, PTT INR 1.51 (0.83-1.09) H 09/26/19 06:37 Problem List - Problems (1) Renal insufficiency Code(s): N28.9 - DISORDER OF KIDNEY AND URETER, UNSPECIFIED Assessment/Plan Current Medications Generic Name Dose Route Start Last Admin Trade Name Freq PRN Reason Stop Dose Admin Albuterol Sulfate 1 amp 09/25/19 15:18 Ventolin 0.083% Nebulizer Soln - NEB Q4H PRN SHORT OF BREATH/WHEEZING Albuterol/Ipratropium 1 amp 09/26/19 16:00 09/28/19 11:14 Duoneb - NEB 1 amp RQID [facility] Administration Amlodipine Besylate 10 mg 09/26/19 10:00 09/28/19 09:28 Norvasc - PO 10 mg DAILY [facility] Administration Apixaban 2.5 mg 09/26/19 22:00 09/28/19 09:28 Eliquis - PO 2.5 mg BID [facility] Administration Atorvastatin Calcium 80 mg 09/25/19 22:00 09/27/19 22:03 Lipitor - PO 80 mg HS [facility] Administration Budesonide/Formoterol Fumarate 2 puff 09/26/19 22:00 09/28/19 09:28 Symbicort 160/4.5mcg - IH 2 puff BID [facility] Administration Carbidopa/Levodopa 3 combo 09/26/19 22:00 09/28/19 05:39 Sinemet *Cr* 25/100 - PO 3 combo TID [facility] Administration Carvedilol 25 mg 09/25/19 22:00 09/28/19 09:28 Coreg - PO 25 mg BID [facility] Administration Docusate Sodium 100 mg 09/27/19 11:45 09/28/19 09:28 Colace - PO 100 mg DAILY [facility] Administration Doxazosin Mesylate 2 mg 09/26/19 10:00 09/28/19 09:33 Cardura - PO 2 mg DAILY [facility] Administration Ergocalciferol 50,000 unit 09/26/19 17:27 09/26/19 17:28 Drisdol - PO 50,000 unit We [facility] Administration Hydralazine HCl 25 mg 09/27/19 22:00 09/28/19 09:28 Apresoline - PO 25 mg BID [facility] Administration Insulin Aspart 1 vial 09/25/19 22:29 09/28/19 12:17 Novolog Vial Sliding Scale - SQ 6 units ACHS [facility] Administration Protocol Pantoprazole Sodium 40 mg 09/27/19 10:00 09/28/19 09:28 Protonix - PO 40 mg DAILY [facility] Administration Prednisone 40 mg 09/28/19 10:00 09/28/19 09:28 Deltasone - PO 40 mg DAILY [facility] Administration Ranolazine 500 mg 09/25/19 22:00 09/28/19 09:29 Ranexa - PO 500 mg BID [facility] Administration Senna 2 tab 09/27/19 22:00 09/28/19 00:40 Senna - PO 2 tab HS [facility] Administration Tamsulosin HCl 0.8 mg 09/28/19 08:30 09/28/19 08:31 Flomax - PO 0.8 mg DAILY@0830 [facility] Administration Impression 1. ANÍBAL 2. CKD 3. urinary obstruction 4. hemoptysis 5. chf 6. cad 7. htn 8. a-fib Plan - yanes on place for retention - urology follow up - follow anca - prednisone will cause an elevation in bun - cont to monitor renal function - he will need outpt follow up - follow anca, pt has not had hemoptysis - ua neg for blood or protein
--- NOTE | 2019-09-28 16:35 | PN ---
Teaching Attending Note Name of Resident: Beth Levy ATTENDING PHYSICIAN STATEMENT I saw and evaluated the patient. I reviewed the resident's note and discussed the case with the resident. I agree with the resident's findings and plan as documented. SUBJECTIVE: Patient reports cough. He denies SOB, hemoptysis. Sandoval was reinserted. OBJECTIVE: Vital Signs Period Temp Pulse Resp BP Sys/Knutson Pulse Ox Last 24 Hr 97 F-98 F 54-61 18-18 125-139/44-52 100-100 HEART: S1S2, bradycardic LUNGS: Clear ABDOMEN: Soft, non-tender, non-distended, normal BS EXTREMITIES: No edema Laboratory Results - last 24 hr 09/27/19 09/27/19 09/28/19 17:06 22:14 05:33 WBC RBC Hgb Hct MCV MCH MCHC RDW Plt Count MPV Absolute Neuts (auto) Neutrophils % Neutrophils % (Manual) Band Neutrophils % Lymphocytes % Lymphocytes % (Manual) Monocytes % Monocytes % (Manual) Eosinophils % Eosinophils % (Manual) Basophils % Basophils % (Manual) Myelocytes % (Man) Promyelocytes % (Man) Blast Cells % (Manual) Nucleated RBC % Metamyelocytes Hypochromia Platelet Estimate Polychromasia Poikilocytosis Basophilic Stippling Anisocytosis Microcytosis Macrocytosis Target Cells Tear Drop Cells Ovalocytes [place] Cells Fragmented RBCs Sodium Potassium Chloride Carbon Dioxide Anion Gap BUN Creatinine Est GFR (CKD-EPI)AfAm Est GFR (CKD-EPI)NonAf POC Glucometer 174 180 159 Random Glucose Calcium Total Bilirubin AST ALT Alkaline Phosphatase Total Protein Albumin 09/28/19 09/28/19 09/28/19 06:45 06:45 12:12 WBC 6.9 RBC 2.89 L Hgb 7.9 L Hct 24.3 L MCV 83.9 MCH 27.4 MCHC 32.7 RDW 16.3 H Plt Count 131 L MPV 9.0 Absolute Neuts (auto) 6.3 Neutrophils % 91.2 H Neutrophils % (Manual) 97.0 H Band Neutrophils % 0.0 Lymphocytes % 1.7 L D Lymphocytes % (Manual) 1.0 L D Monocytes % 7.0 D Monocytes % (Manual) 2 L D Eosinophils % 0.0 Eosinophils % (Manual) 0.0 Basophils % 0.1 Basophils % (Manual) 0.0 Myelocytes % (Man) 0 Promyelocytes % (Man) 0 Blast Cells % (Manual) 0 Nucleated RBC % 0 Metamyelocytes 0 Hypochromia 0 Platelet Estimate Decreased Polychromasia 2+ Poikilocytosis 1+ Basophilic Stippling 1+ Anisocytosis 1+ Microcytosis 1+ Macrocytosis 0 Target Cells 1+ Tear Drop Cells 1+ Ovalocytes 1+ Meldrim Cells 1+ Fragmented RBCs 1+ Sodium 136 Potassium 4.5 Chloride 100 Carbon Dioxide 29 Anion Gap 7 L BUN 104.9 H* Creatinine 2.8 H Est GFR (CKD-EPI)AfAm 23.13 Est GFR (CKD-EPI)NonAf 19.96 POC Glucometer 209 Random Glucose 166 H Calcium 7.9 L Total Bilirubin 0.7 AST 23 ALT 7 L Alkaline Phosphatase 60 Total Protein 6.2 L Albumin 3.4 Current Medications Generic Name Dose Route Start Last Admin Trade Name Freq PRN Reason Stop Dose Admin Albuterol Sulfate 1 amp 09/25/19 15:18 Ventolin 0.083% Nebulizer Soln - NEB Q4H PRN SHORT OF BREATH/WHEEZING Albuterol/Ipratropium 1 amp 09/26/19 16:00 09/28/19 15:05 Duoneb - NEB 1 amp RQID [facility] Administration Amlodipine Besylate 10 mg 09/26/19 10:00 09/28/19 09:28 Norvasc - PO 10 mg DAILY [facility] Administration Apixaban 2.5 mg 09/26/19 22:00 09/28/19 09:28 Eliquis - PO 2.5 mg BID [facility] Administration Atorvastatin Calcium 80 mg 09/25/19 22:00 09/27/19 22:03 Lipitor - PO 80 mg HS [facility] Administration Budesonide/Formoterol Fumarate 2 puff 09/26/19 22:00 09/28/19 09:28 Symbicort 160/4.5mcg - IH 2 puff BID [facility] Administration Carbidopa/Levodopa 3 combo 09/26/19 22:00 09/28/19 13:49 Sinemet *Cr* 25/100 - PO 3 combo TID [facility] Administration Carvedilol 25 mg 09/25/19 22:00 09/28/19 09:28 Coreg - PO 25 mg BID [facility] Administration Docusate Sodium 100 mg 09/27/19 11:45 09/28/19 09:28 Colace - PO 100 mg DAILY [facility] Administration Doxazosin Mesylate 2 mg 09/26/19 10:00 09/28/19 09:33 Cardura - PO 2 mg DAILY [facility] Administration Ergocalciferol 50,000 unit 09/26/19 17:27 09/26/19 17:28 Drisdol - PO 50,000 unit We [facility] Administration Hydralazine HCl 25 mg 09/27/19 22:00 09/28/19 09:28 Apresoline - PO 25 mg BID [facility] Administration Insulin Aspart 1 vial 09/25/19 22:29 09/28/19 12:17 Novolog Vial Sliding Scale - SQ 6 units ACHS [facility] Administration Protocol Pantoprazole Sodium 40 mg 09/27/19 10:00 09/28/19 09:28 Protonix - PO 40 mg DAILY [facility] Administration Prednisone 40 mg 09/28/19 10:00 09/28/19 09:28 Deltasone - PO 40 mg DAILY [facility] Administration Ranolazine 500 mg 09/25/19 22:00 09/28/19 09:29 Ranexa - PO 500 mg BID [facility] Administration Senna 2 tab 09/27/19 22:00 09/28/19 00:40 Senna - PO 2 tab HS [facility] Administration Tamsulosin HCl 0.8 mg 09/28/19 08:30 09/28/19 08:31 Flomax - PO 0.8 mg DAILY@0830 [facility] Administration ASSESSMENT AND PLAN: This is an 84 year old man with a history of chronic hypoxic respiratory failure, COPD, HTN, hyperlipidemia, CAD, CABG, atrial fib, CHF, CKD, carotid stenosis, Parkinson disease, prostate cancer who presented to the ED with SOB. 1. Acute on chronic hypoxic respiratory failure secondary to acute exacerbation of COPD - Continue prednisone, Symbicort, DuoNeb, oxygen - Completed course of Augmentin 2. Interstitial lung disease with hemoptysis, bilateral pleural effusions, mediastinal lymhadenopthy - ANCA pending - Repeat chest CT in 3 months - Outpatient pulmonary follow-up 3. Acute kidney injury on probable stage 4 CKD - Likely multifactorial, including obstructive, pre-renal - ANCA pending - Creatinine stable - Lasix, Cozaar held - Continue Flomax, Sandoval catheter 4. Urinary retention - Continue Flomax - Maintain Sandoval
[2019-09-28] MEDS: ATORVASTATIN CA 80 MG TABLET (FP) PO SCH (21:51)
[2019-09-29] MEDS ORDERED: guaiFENesin 200 MG/10 ML 10 ML UNIT-DOSE CUPS PO ONE (01:11)
[2019-09-29] MEDS: INSULIN SLIDING SCALE (NOVOLOG) 1 VIAL SQ SCH ×4 (06:54→21:34)
[2019-09-29] MEDS: TAMSULOSIN HCL 0.4 MG CAP PO SCH (08:34)
[2019-09-29] MEDS: ALBUTEROL SO4 2.5/IPRATROPIUM 0.5 INH SOL 3 ML VIAL.NEB. NEB SCH ×4 (08:40→20:06)
[2019-09-29] MEDS: PANTOPRAZOLE 40 MG TABLET PO SCH (10:35)
[2019-09-29] MEDS: DOXAZOSIN MESYLATE 2 MG TABLET PO SCH (10:35)
[2019-09-29] MEDS: hydrALAZINE HCL 25 MG TABLET (FP) PO SCH ×2 (10:35→21:35)
[2019-09-29] MEDS: CARVEDILOL 25 MG TABLET (FP) PO SCH ×2 (10:35→21:35)
[2019-09-29] MEDS: amLODIPine BESYLATE 10 MG TABLET (FP) PO SCH (10:35)
[2019-09-29] MEDS: APIXABAN 2.5 MG TABLET PO SCH ×2 (10:35→21:35)
[2019-09-29] MEDS: DOCUSATE SODIUM 100 MG CAPSULE (FP) PO SCH ×3 (10:35→22:04)
[2019-09-29] MEDS: predniSONE 20 MG TABLET (UD) PO SCH (10:35)
[2019-09-29] MEDS: RANOLAZINE E.R. 500 MG TABLET (FP) PO SCH ×2 (10:35→21:36)
[2019-09-29] MEDS: BUDESONIDE/FORMETEROL FUMARATE 160/4.5 mcg INHALER IH SCH ×2 (10:36→21:40)
--- NOTE | 2019-09-29 10:48 | PN ---
<Duane Hunt - Last Filed: 09/29/19 17:19> Physical Exam: SUBJECTIVE: Patient seen and examined at bedside. No acute events overnight. OBJECTIVE: Vital Signs Period Temp Pulse Resp BP Sys/Knutson Pulse Ox Last 24 Hr 97.3 F-98.3 F 56-64 18-18 126-149/39-57 98-98 GENERAL: NAD HEAD: Normal with no signs of trauma. EYES: EOMI Sclera Clear ENT: MMM NECK: Trachea midline, full range of motion, supple. LUNGS: Clear Bilaterally HEART: RRR S1S2 ABDOMEN: Soft, NDNT. EXTREMITIES: No significant edema Laboratory Results - last 24 hr 09/28/19 09/28/19 09/28/19 06:45 12:12 17:01 Neutrophils % (Manual) 97.0 H Band Neutrophils % 0.0 Lymphocytes % (Manual) 1.0 L D Monocytes % (Manual) 2 L D Eosinophils % (Manual) 0.0 Basophils % (Manual) 0.0 Myelocytes % (Man) 0 Promyelocytes % (Man) 0 Blast Cells % (Manual) 0 Nucleated RBC % 0 Metamyelocytes 0 Hypochromia 0 Platelet Estimate Decreased Polychromasia 2+ Poikilocytosis 1+ Basophilic Stippling 1+ Anisocytosis 1+ Microcytosis 1+ Macrocytosis 0 Target Cells 1+ Tear Drop Cells 1+ Ovalocytes 1+ [place] Cells 1+ Fragmented RBCs 1+ POC Glucometer 209 57 09/28/19 09/28/19 09/29/19 17:49 21:50 06:53 Neutrophils % (Manual) Band Neutrophils % Lymphocytes % (Manual) Monocytes % (Manual) Eosinophils % (Manual) Basophils % (Manual) Myelocytes % (Man) Promyelocytes % (Man) Blast Cells % (Manual) Nucleated RBC % Metamyelocytes Hypochromia Platelet Estimate Polychromasia Poikilocytosis Basophilic Stippling Anisocytosis Microcytosis Macrocytosis Target Cells Tear Drop Cells Ovalocytes Akhil Cells Fragmented RBCs POC Glucometer 125 180 139 Active Medications Generic Name Dose Route Start Last Admin Trade Name Freq PRN Reason Stop Dose Admin Albuterol Sulfate 1 amp 09/25/19 15:18 Ventolin 0.083% Nebulizer Soln - NEB Q4H PRN SHORT OF BREATH/WHEEZING Albuterol/Ipratropium 1 amp 09/26/19 16:00 06/27/20 08:40 Duoneb - NEB 1 amp RQID [facility] Administration Amlodipine Besylate 10 mg 09/26/19 10:00 09/29/19 10:35 Norvasc - PO 10 mg DAILY [facility] Administration Apixaban 2.5 mg 09/26/19 22:00 09/29/19 10:35 Eliquis - PO 2.5 mg BID [facility] Administration Atorvastatin Calcium 80 mg 09/25/19 22:00 09/28/19 21:51 Lipitor - PO 80 mg HS [facility] Administration Budesonide/Formoterol Fumarate 2 puff 09/26/19 22:00 09/29/19 10:36 Symbicort 160/4.5mcg - IH 2 puff BID [facility] Administration Carbidopa/Levodopa 3 combo 09/26/19 22:00 09/29/19 06:54 Sinemet *Cr* 25/100 - PO 3 combo TID [facility] Administration Carvedilol 25 mg 09/25/19 22:00 09/29/19 10:35 Coreg - PO 25 mg BID [facility] Administration Docusate Sodium 100 mg 09/27/19 11:45 09/29/19 10:35 Colace - PO 100 mg DAILY [facility] Administration Doxazosin Mesylate 2 mg 09/26/19 10:00 09/29/19 10:35 Cardura - PO 2 mg DAILY [facility] Administration Ergocalciferol 50,000 unit 09/26/19 17:27 09/26/19 17:28 Drisdol - PO 50,000 unit We [facility] Administration Hydralazine HCl 25 mg 09/27/19 22:00 09/29/19 10:35 Apresoline - PO 25 mg BID [facility] Administration Insulin Aspart 1 vial 09/25/19 22:29 09/29/19 06:54 Novolog Vial Sliding Scale - SQ Not Given ACHS [facility] Protocol Pantoprazole Sodium 40 mg 09/27/19 10:00 09/29/19 10:35 Protonix - PO 40 mg DAILY [facility] Administration Prednisone 40 mg 09/28/19 10:00 09/29/19 10:35 Deltasone - PO 40 mg DAILY [facility] Administration Ranolazine 500 mg 09/25/19 22:00 09/29/19 10:35 Ranexa - PO 500 mg BID [facility] Administration Senna 2 tab 09/27/19 22:00 09/28/19 21:51 Senna - PO 2 tab HS [facility] Administration Tamsulosin HCl 0.8 mg 09/28/19 08:30 09/29/19 08:34 Flomax - PO 0.8 mg DAILY@0830 [facility] Administration ASSESSMENT/PLAN: IMAGING: * CT chest: In comparison to a 2013 CT exam interval development of several nodular opacities are noted within the left lower lobe posteriorly probably representing infectious/inflammatory infiltrates and less likely neoplastic disease. Correlate clinically and with close follow-up CT. Interval development of bilateral mildly increased lung attenuation is seen diffusely - ? due to possible interstitial pulmonary vascular congestion versus acute or chronic interstitial pneumonitis. Clinical/laboratory correlation is suggested. Development of trace bilateral pleural effusions is noted with associated mild pleural thickening. Multichamber cardiomegaly is visualized which is probably somewhat increased. Status post median sternotomy with CABG as on the prior exam. Centrilobular emphysema is again seen including mild stable focal right upper lobe parenchymal scarring. Interval development of mild nonspecific mediastinal lymphadenopathy is noted. Correlate clinically and with close follow-up CT. * Renal/ bladder U/S: 1. Mildly atrophic kidneys with no evidence of hydronephrosis or obstructive uropathy. 2. Technically inadequate evaluation of the urinary bladder. ASSESSMENT/PLAN: 84 y.o. M HTN, HLD, CAD sp CABG x 2 vessels, carotid stenosis (s/p left endarterectomy), CHF, Afib on eliquis, DM, Parkinson disease, prostate cancer on radiation therapy, COPD on 2 liters NC at home, recurrent pneumonias presenting with generalized weakness, hypoxia and 1 episode hemoptysis. #Acute hypoxic respiratory failure 2/2 COPD exacerbation -CXR airspace opacities, mild venous congestion- no obvious infiltrates noted -CT chest findings as above -s/p IV steroids; Prednisone 40 PO Daily -continue duonebs, symbicort; holding home spiriva -augmentin for inflammatory airway dz- course completed -O2 supplementation prn- on 2L home O2 -pulm Dr. Chu following #Mediastinal LAD, Interstitial disease, Nodular disease, RUL parenchymal scarring -Per pulm, will need repeat CT chest in 3 months as outpatient #ANÍBAL on CKD; likely prerenal + post-obstructive uropathy. Improving, Cr 2.9 --> 2.8 -D/c yanes again today 09/29/2019, will do TOV. If minimal urine output, will straight cath and do bladder scan to check PVR -Will reassess in AM regarding need to insert yanes for d/c -Increase Flomax to 0.8 QD -hold IVf for now -Renal following; immunology panel ordered, results pending -renal/ bladder U/S: Mildly atrophic kidneys with no evidence of hydronephrosis or obstructive uropathy. -Hold Lasix and Losartan #Hemoptysis; Stable, no more acute episodes, HD stable. Can cont home med: Eliquis 2.5 BID #CHF; No acute issues. Per PCP, no recent lasix use at home #HTN; Stable. Cont home meds: Coreg 25 BID, Amlo 10, Ranexa 500 BID, Hydralazine 25 BID #A-fib; Rate-controlled. Cont home meds: Eliquis 2.5 BID, Coreg 25 BID -EKG showing sinus bradycardia rate 57 (qtc 467) #Parkinsons disease; Stable, no acute issues. Cont home med: Carbidopa/levodopa TID #DM; Hold home DM meds. BGM/ISS ACHS. #FEN -no IVf -trend & replete lytes prn -diabetic/na controlled diet #Prophylaxis DVT: Cont home Eliquis GI: Cont home Protonix 40mg PO daily Dispo -Likely D/C tomorrow if able to tolerate TOV Visit type - Emergency Visit Emergency Visit: Yes ED Registration Date: 09/25/19 Care time: The patient presented to the Emergency Department on the above date and was hospitalized for further evaluation of their emergent condition. - New Patient This patient is new to me today: No - Critical Care Critical Care patient: No - Discharge Referral Referred to [facility] Med P.C.: No ATTENDING PHYSICIAN STATEMENT I saw and evaluated the patient. I reviewed the resident's note and discussed the case with the resident. I agree with the resident's findings and plan as documented. SUBJECTIVE: OBJECTIVE: ASSESSMENT AND PLAN: <Malik Coelho - Last Filed: 09/29/19 18:46> Physical Exam: SUBJECTIVE: Patient seen and examined OBJECTIVE: Vital Signs Period Temp Pulse Resp BP Sys/Knutson Pulse Ox Last 24 Hr 97.5 F-98.3 F 56-89 18-20 133-149/39-76 98-98 GENERAL: The patient is awake, alert, and fully oriented, in no acute distress. HEAD: Normal with no signs of trauma. EYES: PERRL, extraocular movements intact, sclera anicteric, conjunctiva clear. No ptosis. ENT: Ears normal, nares patent, oropharynx clear without exudates, moist mucous membranes. NECK: Trachea midline, full range of motion, supple. LUNGS: Breath sounds equal, clear to auscultation bilaterally, no wheezes, no crackles, no accessory muscle use. HEART: Regular rate and rhythm, S1, S2 without murmur, rub or gallop. ABDOMEN: Soft, nontender, nondistended, normoactive bowel sounds, no guarding, no rebound, no hepatosplenomegaly, no masses. EXTREMITIES: 2+ pulses, warm, well-perfused, no edema. NEUROLOGICAL: Cranial nerves II through XII grossly intact. Normal speech, gait not observed. PSYCH: Normal mood, normal affect. SKIN: Warm, dry, normal turgor, no rashes or lesions noted Laboratory Results - last 24 hr 09/28/19 09/29/19 09/29/19 21:50 06:53 10:30 WBC 6.7 RBC 2.96 L Hgb 8.1 L Hct 25.2 L MCV 85.0 MCH 27.4 MCHC 32.3 RDW 16.1 H Plt Count 131 L MPV 9.5 Sodium Potassium Chloride Carbon Dioxide Anion Gap BUN Creatinine Est GFR (CKD-EPI)AfAm Est GFR (CKD-EPI)NonAf POC Glucometer 180 139 Random Glucose Calcium Phosphorus Magnesium 09/29/19 09/29/19 09/29/19 10:30 12:06 17:20 WBC RBC Hgb Hct MCV MCH MCHC RDW Plt Count MPV Sodium 135 L Potassium 4.7 Chloride 99 Carbon Dioxide 26 Anion Gap 10 BUN 117.9 H* Creatinine 2.9 H Est GFR (CKD-EPI)AfAm 22.17 Est GFR (CKD-EPI)NonAf 19.13 POC Glucometer 175 196 Random Glucose 199 H Calcium 7.9 L Phosphorus 4.6 Magnesium 3.6 H Active Medications Generic Name Dose Route Start Last Admin Trade Name Freq PRN Reason Stop Dose Admin Albuterol Sulfate 1 amp 09/25/19 15:18 Ventolin 0.083% Nebulizer Soln - NEB Q4H PRN SHORT OF BREATH/WHEEZING Albuterol/Ipratropium 1 amp 09/26/19 16:00 09/29/19 13:00 Duoneb - NEB 1 amp RQID [facility] Administration Amlodipine Besylate 10 mg 09/26/19 10:00 09/29/19 10:35 Norvasc - PO 10 mg DAILY [facility] Administration Apixaban 2.5 mg 09/26/19 22:00 09/29/19 10:35 Eliquis - PO 2.5 mg BID [facility] Administration Atorvastatin Calcium 80 mg 09/25/19 22:00 09/28/19 21:51 Lipitor - PO 80 mg HS [facility] Administration Budesonide/Formoterol Fumarate 2 puff 09/26/19 22:00 09/29/19 10:36 Symbicort 160/4.5mcg - IH 2 puff BID [facility] Administration Carbidopa/Levodopa 3 combo 09/26/19 22:00 09/29/19 15:40 Sinemet *Cr* 25/100 - PO 3 combo TID [facility] Administration Carvedilol 25 mg 09/25/19 22:00 09/29/19 10:35 Coreg - PO 25 mg BID [facility] Administration Docusate Sodium 100 mg 09/27/19 11:45 09/29/19 10:35 Colace - PO 100 mg DAILY [facility] Administration Doxazosin Mesylate 2 mg 09/26/19 10:00 09/29/19 10:35 Cardura - PO 2 mg DAILY [facility] Administration Ergocalciferol 50,000 unit 09/26/19 17:27 09/26/19 17:28 Drisdol - PO 50,000 unit We [facility] Administration Hydralazine HCl 25 mg 09/27/19 22:00 09/29/19 10:35 Apresoline - PO 25 mg BID [facility] Administration Insulin Aspart 1 vial 09/25/19 22:29 09/29/19 17:41 Novolog Vial Sliding Scale - SQ 4 units ACHS [facility] Administration Protocol Pantoprazole Sodium 40 mg 09/27/19 10:00 09/29/19 10:35 Protonix - PO 40 mg DAILY [facility] Administration Prednisone 40 mg 09/28/19 10:00 09/29/19 10:35 Deltasone - PO 40 mg DAILY [facility] Administration Ranolazine 500 mg 09/25/19 22:00 09/29/19 10:35 Ranexa - PO 500 mg BID [facility] Administration Senna 2 tab 09/27/19 22:00 09/28/19 21:51 Senna - PO 2 tab HS [facility] Administration Tamsulosin HCl 0.8 mg 09/28/19 08:30 09/29/19 08:34 Flomax - PO 0.8 mg DAILY@0830 [facility] Administration ASSESSMENT/PLAN: ATTENDING PHYSICIAN STATEMENT I saw and evaluated the patient. I reviewed the resident's note and discussed the case with the resident. I agree with the resident's findings and plan as documented. Attending attestation: Patient seen and examined at bedside during my rounds. The patient endorses he would like to go home but he is pending a trial of void. This is the second time his Yanes is removed. It has been about 2 hours and the patient still has not urinated. On exam he is alert awake and oriented to person place and time. He has a regular rate and rhythm on cardiac exam. Lungs are clear to auscultation bilaterally. Abdomen is soft nontender nondistended. Trace if any lower extremity edema bilaterally. Will give him more time. For his COPD exacerbation continue prednisone taper. Continue inhalers. Augmentin for inflammatory airway disease has been completed. Patient will need to follow-up with pulmonology to repeat a chest CT in 3 months as an outpatient for mediastinal lymphadenopathy, interstitial lung disease, nodular disease, and right upper lobe parenchymal scarring. For his acute renal failure on CKD this is likely postobstructive uropathy. Creatinine remains at 2.9 and this is likely his new baseline. Continue Eliquis 2.5 mg p.o. twice daily given the patient's age and renal function. Continue to hold Lasix and losartan. Nephrology consult noted and appreciated. Continue GI and DVT prophylaxis. Hemoptysis has resolved. Continue insulin for diabetes and Sinemet for Parkinson's. Rest as per resident's note above.
--- NOTE | 2019-09-29 11:18 | PN ---
Progress Note (short form) - Note Progress Note: PULMONARY AWAKE/ALERT HAS CONGESTED COUGH BUT UNABLE TO EXPECTORATE VSS/AFEBRILE Constitutional: Yes: Well Nourished, No Distress, Calm Eyes: Yes: Conjunctiva Clear, EOM Intact HENT: Yes: Atraumatic, Normocephalic Neck: Yes: Supple, Trachea Midline Cardiovascular: Yes: Pulse Irregular Respiratory: Yes: Cough, Diminished, On Nasal O2, Rhonchi. No: Accessory Muscle Use, Rales, Stridor, Tachypnea ...Inspection: Yes: WNL ...Clubbing: No Gastrointestinal: Yes: Normal Bowel Sounds, Soft Renal/: Yes: WNL Musculoskeletal: Yes: WNL Extremities: Yes: WNL Edema: No Peripheral Pulses WNL: Yes Integumentary: Yes: WNL Neurological: Yes: WNL, Alert, Oriented ...Motor Strength: WNL Psychiatric: Yes: WNL, Alert, Oriented Labs: NOTED CXR/CT CHEST REVIEWED COVID NEGATIVE Problem List - Problems (1) ILD (interstitial lung disease) Code(s): J84.9 - INTERSTITIAL PULMONARY DISEASE, UNSPECIFIED (2) Emphysema lung Code(s): J43.9 - EMPHYSEMA, UNSPECIFIED (3) CHF (congestive heart failure) Code(s): I50.9 - HEART FAILURE, UNSPECIFIED (4) COPD exacerbation Code(s): J44.1 - CHRONIC OBSTRUCTIVE PULMONARY DISEASE W (ACUTE) EXACERBATION (5) DM Diabetes mellitus Code(s): E11.9 - TYPE 2 DIABETES MELLITUS WITHOUT COMPLICATIONS Assessment/Plan IMP: Do not suspect PNA PLAN : Short course of steroids BD TX No smoking was discussed PFTs as an outpatient Can repeat CT chest in 3 months for follow up No objection to discharge from pulmonary standpoint Marianna ISLAS MD
[2019-09-29 11:35] LABS: HEMATOCRIT 25.2 % (35.4-49); HEMOGLOBIN 8.1 GM/dL (11.7-16.9); MCH 27.4 pg (25.7-33.7); MCHC 32.3 g/dl (32.0-35.9); MEAN PLT VOLUME 9.5 fl (7.5-11.1); PLATELET COUNT 131 K/MM3 (134-434); RBC 2.96 M/mm3 (4.00-5.60); RDW 16.1 % (11.9-15.9); WHITE BLOOD COUNT 6.7 K/mm3 (4.0-10.0)
[2019-09-29 12:02] LABS: CALCIUM 7.9 mg/dL (8.5-10.1); CREATININE 2.9 mg/dL (0.55-1.3); MAGNESIUM 3.6 mg/dL (1.8-2.4); PHOSPHOROUS 4.6 mg/dL (2.5-4.9); POTASSIUM 4.7 mmol/L (3.5-5.1)
[2019-09-29 12:19] LABS: BLOOD UREA NITROGEN 117.9 mg/dL (7-18)
[2019-09-29] MEDS ORDERED: SODIUM POLYSTYRENE SULFONATE 15 GM/60 ML BOTTLE ONE (16:33)
--- NOTE | 2019-09-29 19:09 | PN ---
Progress Note, Physician History of Present Illness: Pt seen and examined at bedside. He is awake and alert. He denies shortness of breath. - Current Medication List Current Medications: Active Medications Albuterol Sulfate (Ventolin 0.083% Nebulizer Soln -) 1 amp NEB Q4H PRN PRN Reason: SHORT OF BREATH/WHEEZING Albuterol/Ipratropium (Duoneb -) 1 amp NEB RQID [facility] Last Admin: 09/29/19 13:00 Dose: 1 amp Documented by: Amlodipine Besylate (Norvasc -) 10 mg PO DAILY [facility] Last Admin: 09/29/19 10:35 Dose: 10 mg Documented by: Apixaban (Eliquis -) 2.5 mg PO BID [facility] Last Admin: 09/29/19 10:35 Dose: 2.5 mg Documented by: Atorvastatin Calcium (Lipitor -) 80 mg PO HS [facility] Last Admin: 09/28/19 21:51 Dose: 80 mg Documented by: Budesonide/Formoterol Fumarate (Symbicort 160/4.5mcg -) 2 puff IH BID [facility] Last Admin: 09/29/19 10:36 Dose: 2 puff Documented by: Carbidopa/Levodopa (Sinemet *Cr* 25/100 -) 3 combo PO TID [facility] Last Admin: 09/29/19 15:40 Dose: 3 combo Documented by: Carvedilol (Coreg -) 25 mg PO BID [facility] Last Admin: 09/29/19 10:35 Dose: 25 mg Documented by: Docusate Sodium (Colace -) 100 mg PO DAILY [facility] Last Admin: 09/29/19 10:35 Dose: 100 mg Documented by: Doxazosin Mesylate (Cardura -) 2 mg PO DAILY [facility] Last Admin: 09/29/19 10:35 Dose: 2 mg Documented by: Ergocalciferol (Drisdol -) 50,000 unit PO We [facility] Last Admin: 09/26/19 17:28 Dose: 50,000 unit Documented by: Hydralazine HCl (Apresoline -) 25 mg PO BID [facility] Last Admin: 09/29/19 10:35 Dose: 25 mg Documented by: Insulin Aspart (Novolog Vial Sliding Scale -) 1 vial SQ ACHS [facility]; Protocol Last Admin: 09/29/19 17:41 Dose: 4 units Documented by: Pantoprazole Sodium (Protonix -) 40 mg PO DAILY [facility] Last Admin: 09/29/19 10:35 Dose: 40 mg Documented by: Prednisone (Deltasone -) 40 mg PO DAILY [facility] Last Admin: 09/29/19 10:35 Dose: 40 mg Documented by: Ranolazine (Ranexa -) 500 mg PO BID [facility] Last Admin: 09/29/19 10:35 Dose: 500 mg Documented by: Senna (Senna -) 2 tab PO HS [facility] Last Admin: 09/28/19 21:51 Dose: 2 tab Documented by: Tamsulosin HCl (Flomax -) 0.8 mg PO DAILY@0830 [facility] Last Admin: 09/29/19 08:34 Dose: 0.8 mg Documented by: - Objective Vital Signs: Vital Signs Temperature 97.5 F L 09/29/19 18:00 Pulse Rate 59 L 09/29/19 18:00 Respiratory Rate 20 09/29/19 18:00 Blood Pressure 143/76 09/29/19 18:00 O2 Sat by Pulse Oximetry (%) 98 09/29/19 08:28 Constitutional: Yes: Calm Eyes: Yes: Conjunctiva Clear HENT: Yes: Atraumatic Neck: Yes: Supple Cardiovascular: Yes: S1, S2 Respiratory: Yes: CTA Bilaterally Gastrointestinal: Yes: Soft Genitourinary: Yes: Sandoval Present Musculoskeletal: Yes: WNL Edema: No Neurological: Yes: Oriented Psychiatric: Yes: Oriented Labs: CBC, BMP 09/29/19 10:30 09/29/19 10:30 INR, PTT INR 1.51 (0.83-1.09) H 09/26/19 06:37 Problem List - Problems (1) Renal insufficiency Code(s): N28.9 - DISORDER OF KIDNEY AND URETER, UNSPECIFIED Assessment/Plan Current Medications Generic Name Dose Route Start Last Admin Trade Name Freq PRN Reason Stop Dose Admin Albuterol Sulfate 1 amp 09/25/19 15:18 Ventolin 0.083% Nebulizer Soln - NEB Q4H PRN SHORT OF BREATH/WHEEZING Albuterol/Ipratropium 1 amp 09/26/19 16:00 09/29/19 13:00 Duoneb - NEB 1 amp RQID [facility] Administration Amlodipine Besylate 10 mg 09/26/19 10:00 09/29/19 10:35 Norvasc - PO 10 mg DAILY [facility] Administration Apixaban 2.5 mg 09/26/19 22:00 09/29/19 10:35 Eliquis - PO 2.5 mg BID [facility] Administration Atorvastatin Calcium 80 mg 09/25/19 22:00 09/28/19 21:51 Lipitor - PO 80 mg HS [facility] Administration Budesonide/Formoterol Fumarate 2 puff 09/26/19 22:00 09/29/19 10:36 Symbicort 160/4.5mcg - IH 2 puff BID [facility] Administration Carbidopa/Levodopa 3 combo 09/26/19 22:00 09/29/19 15:40 Sinemet *Cr* 25/100 - PO 3 combo TID [facility] Administration Carvedilol 25 mg 09/25/19 22:00 09/29/19 10:35 Coreg - PO 25 mg BID [facility] Administration Docusate Sodium 100 mg 09/27/19 11:45 09/29/19 10:35 Colace - PO 100 mg DAILY [facility] Administration Doxazosin Mesylate 2 mg 09/26/19 10:00 09/29/19 10:35 Cardura - PO 2 mg DAILY [facility] Administration Ergocalciferol 50,000 unit 09/26/19 17:27 09/26/19 17:28 Drisdol - PO 50,000 unit We [facility] Administration Hydralazine HCl 25 mg 09/27/19 22:00 09/29/19 10:35 Apresoline - PO 25 mg BID [facility] Administration Insulin Aspart 1 vial 09/25/19 22:29 09/29/19 17:41 Novolog Vial Sliding Scale - SQ 4 units ACHS [facility] Administration Protocol Pantoprazole Sodium 40 mg 09/27/19 10:00 09/29/19 10:35 Protonix - PO 40 mg DAILY [facility] Administration Prednisone 40 mg 09/28/19 10:00 09/29/19 10:35 Deltasone - PO 40 mg DAILY [facility] Administration Ranolazine 500 mg 09/25/19 22:00 09/29/19 10:35 Ranexa - PO 500 mg BID [facility] Administration Senna 2 tab 09/27/19 22:00 09/28/19 21:51 Senna - PO 2 tab HS [facility] Administration Tamsulosin HCl 0.8 mg 09/28/19 08:30 09/29/19 08:34 Flomax - PO 0.8 mg DAILY@0830 [facility] Administration Laboratory Tests 09/25/19 09/25/19 09/27/19 14:30 22:36 06:05 Urine Protein Negative Urine Blood Negative ASTON Screen Pending c-ANCA Pending Proteinase 3 (PR3) Pending p-ANCA Pending Atypical p-ANCA Pending Myeloperoxidase Ab Pending Glomerular Base Memb Ab Pending COVID-19 (GIOVANI) Not detected Impression 1. ANÍBAL 2. CKD 3. urinary obstruction 4. hemoptysis 5. chf 6. cad 7. htn 8. a-fib Plan - voiding trial - urology follow up - follow serologies - steroids with taper as tolerated - prednisone will cause an elevation in bun - cont to monitor renal function - discussed with medical team
[2019-09-29] MEDS: SENNOSIDES 8.6MG TABLET (FP) PO SCH (21:35)
[2019-09-29] MEDS: ATORVASTATIN CA 80 MG TABLET (FP) PO SCH (21:36)
[2019-09-29] MEDS: guaiFENesin/D-M SUGAR-FREE/ACLHOL-FREE 118 ML BOTTLE PO PRN (22:04)
[2019-09-30] MEDS: guaiFENesin/D-M SUGAR-FREE/ACLHOL-FREE 118 ML BOTTLE PO PRN (03:52)
[2019-09-30] MEDS: INSULIN SLIDING SCALE (NOVOLOG) 1 VIAL SQ SCH ×4 (06:36→22:41)
[2019-09-30] MEDS: DOCUSATE SODIUM 100 MG CAPSULE (FP) PO SCH ×3 (06:37→22:23)
[2019-09-30 06:56] LABS: HEMATOCRIT 23.3 % (35.4-49); HEMOGLOBIN 7.6 GM/dL (11.7-16.9); MCH 27.4 pg (25.7-33.7); MCHC 32.7 g/dl (32.0-35.9); MEAN CELL VOLUME 83.7 fl (80-96); MEAN PLT VOLUME 9.3 fl (7.5-11.1); PLATELET COUNT 118 K/MM3 (134-434); RBC 2.79 M/mm3 (4.00-5.60); WHITE BLOOD COUNT 5.8 K/mm3 (4.0-10.0)
[2019-09-30 06:59] LABS: CALCIUM 8.2 mg/dL (8.5-10.1); CREATININE 2.9 mg/dL (0.55-1.3); MAGNESIUM 3.8 mg/dL (1.8-2.4); PHOSPHOROUS 4.5 mg/dL (2.5-4.9); POTASSIUM 5.1 mmol/L (3.5-5.1)
[2019-09-30] MEDS: ALBUTEROL SO4 2.5/IPRATROPIUM 0.5 INH SOL 3 ML VIAL.NEB. NEB SCH ×4 (08:24→20:25)
[2019-09-30] MEDS ORDERED: POLYETHYLENE GLYCOL 3350 119 GM BTL PO ONE (08:38)
[2019-09-30] MEDS ORDERED: PT OWN MED DRAWER 7, Y5N ONE (09:06)
[2019-09-30] MEDS: TAMSULOSIN HCL 0.4 MG CAP PO SCH (09:21)
[2019-09-30] MEDS: predniSONE 20 MG TABLET (UD) PO SCH (09:21)
[2019-09-30] MEDS: APIXABAN 2.5 MG TABLET PO SCH ×2 (09:21→22:23)
[2019-09-30] MEDS: PANTOPRAZOLE 40 MG TABLET PO SCH (09:22)
[2019-09-30] MEDS: BUDESONIDE/FORMETEROL FUMARATE 160/4.5 mcg INHALER IH SCH ×2 (09:22→22:31)
[2019-09-30] MEDS: DOXAZOSIN MESYLATE 2 MG TABLET PO SCH (09:22)
[2019-09-30] MEDS: CARVEDILOL 25 MG TABLET (FP) PO SCH ×2 (09:22→22:23)
[2019-09-30] MEDS: amLODIPine BESYLATE 10 MG TABLET (FP) PO SCH (09:22)
[2019-09-30] MEDS: RANOLAZINE E.R. 500 MG TABLET (FP) PO SCH ×2 (09:22→22:23)
[2019-09-30] MEDS: hydrALAZINE HCL 25 MG TABLET (FP) PO SCH ×2 (09:22→22:23)
[2019-09-30] MEDS ORDERED: INSULIN (NOVOLOG) ASPART 100 UNITS/ML 10ML VIAL ONE (11:23)
--- NOTE | 2019-09-30 11:25 | PN ---
Progress Note (short form) - Note Progress Note: PULMONARY AWAKE/ALERT OVERAL IMPROVED VSS/AFEBRILE Constitutional: Yes: Well Nourished, No Distress, Calm Eyes: Yes: Conjunctiva Clear, EOM Intact HENT: Yes: Atraumatic, Normocephalic Neck: Yes: Supple, Trachea Midline Cardiovascular: Yes: Pulse Irregular Respiratory: Yes: Cough, Diminished, On Nasal O2, Rhonchi. No: Accessory Muscle Use, Rales, Stridor, Tachypnea ...Inspection: Yes: WNL ...Clubbing: No Gastrointestinal: Yes: Normal Bowel Sounds, Soft Renal/: Yes: WNL Musculoskeletal: Yes: WNL Extremities: Yes: WNL Edema: No Peripheral Pulses WNL: Yes Integumentary: Yes: WNL Neurological: Yes: WNL, Alert, Oriented ...Motor Strength: WNL Psychiatric: Yes: WNL, Alert, Oriented Labs: NOTED CXR/CT CHEST REVIEWED COVID NEGATIVE Problem List - Problems (1) ILD (interstitial lung disease) Code(s): J84.9 - INTERSTITIAL PULMONARY DISEASE, UNSPECIFIED (2) Emphysema lung Code(s): J43.9 - EMPHYSEMA, UNSPECIFIED (3) CHF (congestive heart failure) Code(s): I50.9 - HEART FAILURE, UNSPECIFIED (4) COPD exacerbation Code(s): J44.1 - CHRONIC OBSTRUCTIVE PULMONARY DISEASE W (ACUTE) EXACERBATION (5) DM Diabetes mellitus Code(s): E11.9 - TYPE 2 DIABETES MELLITUS WITHOUT COMPLICATIONS Assessment/Plan IMP: Do not suspect PNA PLAN : Taper prednisone BD [place] No smoking was discussed PFTs as an outpatient Can repeat CT chest in 3 months for follow up No objection to discharge from pulmonary standpoint Marianna ISLAS MD
[2019-09-30 11:27] LABS: URINE APPEARANCE Clear; URINE BILIRUBIN Negative (NEGATIVE); URINE COLOR Yellow; URINE GLUCOSE (UA) Trace (NEGATIVE); URINE KETONE Negative (NEGATIVE); URINE LEUK ESTERASE Negative (NEGATIVE); URINE NITRITE Negative (NEGATIVE); URINE PROTEIN Negative (NEGATIVE); URINE UROBILINOGEN 0.2 mg/dL (0.2-1.0)
--- NOTE | 2019-09-30 13:30 | PN ---
Progress Note, Physician History of Present Illness: Pt seen and examined at bedside. He is awake and alert. He tolerated his voiding trial. - Current Medication List Current Medications: Active Medications Albuterol Sulfate (Ventolin 0.083% Nebulizer Soln -) 1 amp NEB Q4H PRN PRN Reason: SHORT OF BREATH/WHEEZING Albuterol/Ipratropium (Duoneb -) 1 amp NEB RQID [facility] Last Admin: 09/30/19 08:24 Dose: 1 amp Documented by: Amlodipine Besylate (Norvasc -) 10 mg PO DAILY [facility] Last Admin: 09/30/19 09:22 Dose: 10 mg Documented by: Apixaban (Eliquis -) 2.5 mg PO BID [facility] Last Admin: 09/30/19 09:21 Dose: 2.5 mg Documented by: Atorvastatin Calcium (Lipitor -) 80 mg PO HS [facility] Last Admin: 09/29/19 21:36 Dose: 80 mg Documented by: Budesonide/Formoterol Fumarate (Symbicort 160/4.5mcg -) 2 puff IH BID [facility] Last Admin: 09/30/19 09:22 Dose: 2 puff Documented by: Carbidopa/Levodopa (Sinemet *Cr* 25/100 -) 3 combo PO TID [facility] Last Admin: 09/30/19 13:19 Dose: 3 combo Documented by: Carvedilol (Coreg -) 25 mg PO BID [facility] Last Admin: 09/30/19 09:22 Dose: 25 mg Documented by: Docusate Sodium (Colace -) 100 mg PO TID [facility] Last Admin: 09/30/19 13:19 Dose: 100 mg Documented by: Doxazosin Mesylate (Cardura -) 2 mg PO DAILY [facility] Last Admin: 09/30/19 09:22 Dose: 2 mg Documented by: Ergocalciferol (Drisdol -) 50,000 unit PO We [facility] Last Admin: 09/26/19 17:28 Dose: 50,000 unit Documented by: Guaifenesin (Diabetic Tussin Dm -) 5 ml PO Q4H PRN PRN Reason: COUGH Last Admin: 09/30/19 03:52 Dose: 5 ml Documented by: Hydralazine HCl (Apresoline -) 25 mg PO BID [facility] Last Admin: 09/30/19 09:22 Dose: 25 mg Documented by: Insulin Aspart (Novolog Vial Sliding Scale -) 1 vial SQ ACHS [facility]; Protocol Last Admin: 09/30/19 11:27 Dose: 4 units Documented by: Pantoprazole Sodium (Protonix -) 40 mg PO DAILY [facility] Last Admin: 09/30/19 09:22 Dose: 40 mg Documented by: Prednisone (Deltasone -) 40 mg PO DAILY [facility] Last Admin: 09/30/19 09:21 Dose: 40 mg Documented by: Ranolazine (Ranexa -) 500 mg PO BID [facility] Last Admin: 09/30/19 09:22 Dose: 500 mg Documented by: Senna (Senna -) 2 tab PO HS [facility] Last Admin: 09/29/19 21:35 Dose: 2 tab Documented by: Tamsulosin HCl (Flomax -) 0.8 mg PO DAILY@0830 [facility] Last Admin: 09/30/19 09:21 Dose: 0.8 mg Documented by: - Objective Vital Signs: Vital Signs Temperature 98.3 F 09/30/19 10:00 Pulse Rate 56 L 09/30/19 10:00 Respiratory Rate 18 09/30/19 10:00 Blood Pressure 154/54 L 09/30/19 10:00 O2 Sat by Pulse Oximetry (%) 94 L 09/30/19 09:00 Constitutional: Yes: Calm Eyes: Yes: Conjunctiva Clear HENT: Yes: Atraumatic Neck: Yes: Supple Cardiovascular: Yes: S1, S2 Respiratory: Yes: CTA Bilaterally Gastrointestinal: Yes: Normal Bowel Sounds, Soft Genitourinary: Yes: WNL Musculoskeletal: Yes: WNL Edema: No Neurological: Yes: Oriented Psychiatric: Yes: Oriented Labs: CBC, BMP 09/30/19 06:06 09/30/19 06:06 INR, PTT INR 1.51 (0.83-1.09) H 09/26/19 06:37 Problem List - Problems (1) Renal insufficiency Code(s): N28.9 - DISORDER OF KIDNEY AND URETER, UNSPECIFIED Assessment/Plan Current Medications Generic Name Dose Route Start Last Admin Trade Name Freq PRN Reason Stop Dose Admin Albuterol Sulfate 1 amp 09/25/19 15:18 Ventolin 0.083% Nebulizer Soln - NEB Q4H PRN SHORT OF BREATH/WHEEZING Albuterol/Ipratropium 1 amp 09/26/19 16:00 09/30/19 08:24 Duoneb - NEB 1 amp RQID [facility] Administration Amlodipine Besylate 10 mg 09/26/19 10:00 09/30/19 09:22 Norvasc - PO 10 mg DAILY [facility] Administration Apixaban 2.5 mg 09/26/19 22:00 09/30/19 09:21 Eliquis - PO 2.5 mg BID [facility] Administration Atorvastatin Calcium 80 mg 09/25/19 22:00 09/29/19 21:36 Lipitor - PO 80 mg HS [facility] Administration Budesonide/Formoterol Fumarate 2 puff 09/26/19 22:00 09/30/19 09:22 Symbicort 160/4.5mcg - IH 2 puff BID [facility] Administration Carbidopa/Levodopa 3 combo 09/26/19 22:00 09/30/19 13:19 Sinemet *Cr* 25/100 - PO 3 combo TID [facility] Administration Carvedilol 25 mg 09/25/19 22:00 09/30/19 09:22 Coreg - PO 25 mg BID [facility] Administration Docusate Sodium 100 mg 09/29/19 20:00 09/30/19 13:19 Colace - PO 100 mg TID [facility] Administration Doxazosin Mesylate 2 mg 09/26/19 10:00 09/30/19 09:22 Cardura - PO 2 mg DAILY [facility] Administration Ergocalciferol 50,000 unit 09/26/19 17:27 09/26/19 17:28 Drisdol - PO 50,000 unit We [facility] Administration Guaifenesin 5 ml 09/29/19 21:44 09/30/19 03:52 Diabetic Tussin Dm - PO 5 ml Q4H PRN Administration COUGH Hydralazine HCl 25 mg 09/27/19 22:00 09/30/19 09:22 Apresoline - PO 25 mg BID [facility] Administration Insulin Aspart 1 vial 09/25/19 22:29 09/30/19 11:27 Novolog Vial Sliding Scale - SQ 4 units ACHS [facility] Administration Protocol Pantoprazole Sodium 40 mg 09/27/19 10:00 09/30/19 09:22 Protonix - PO 40 mg DAILY [facility] Administration Prednisone 40 mg 09/28/19 10:00 09/30/19 09:21 Deltasone - PO 40 mg DAILY [facility] Administration Ranolazine 500 mg 09/25/19 22:00 09/30/19 09:22 Ranexa - PO 500 mg BID [facility] Administration Senna 2 tab 09/27/19 22:00 09/29/19 21:35 Senna - PO 2 tab HS [facility] Administration Tamsulosin HCl 0.8 mg 09/28/19 08:30 09/30/19 09:21 Flomax - PO 0.8 mg DAILY@0830 [facility] Administration Laboratory Tests 09/25/19 09/27/19 09/30/19 14:30 06:05 06:06 Iron 45 L TIBC 231 L Iron Saturation 19 ASTON Screen Pending c-ANCA Pending Proteinase 3 (PR3) Pending p-ANCA Pending Atypical p-ANCA Pending Myeloperoxidase Ab Pending Glomerular Base Memb Ab Pending COVID-19 (GIOVANI) Not detected Impression 1. ckd 2. anemia 3. urinary obstruction 4. hemoptysis 5. chf 6. cad 7. htn 8. 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
[2019-09-30] MEDS ORDERED: SODIUM ZIRCONIUM CYCLOSILICATE (LOKELMA) 5 GM PACKET PO ONE (13:45)
[2019-09-30 14:52] LABS: URINE RBC 39.1 /uL (0-23.9)
[2019-09-30 14:53] LABS: EPI CELLS 6.9 /uL (0-25.1); HYALINE CASTS 0.89 /uL (0-3.1); URINE BACTERIA 1.9 /uL (0-1359); URINE WBC 23.3 /uL (0-25.8); YEAST FEW (NEGATIVE)
--- NOTE | 2019-09-30 16:49 | PN ---
<Duane Hunt - Last Filed: 09/30/19 17:22> Physical Exam: SUBJECTIVE: Patient seen and examined at bedside. no complaints. tolerated TOV. Sandoval removed. OBJECTIVE: Vital Signs Period Temp Pulse Resp BP Sys/Knutson Pulse Ox Last 24 Hr 97.5 F-98.3 F 55-59 18-20 134-154/46-76 94-97 GENERAL: No acute distress HEAD: Normal with no signs of trauma. EYES: EOMI Sclera Clear ENT: MMM LUNGS: CTAB HEART: RRR S1S2 : Sandoval removed ABDOMEN: Soft, NDNT. EXTREMITIES: No significant edema Laboratory Results - last 24 hr 09/29/19 09/29/19 09/30/19 17:20 21:33 06:06 WBC 5.8 RBC 2.79 L Hgb 7.6 L Hct 23.3 L MCV 83.7 MCH 27.4 MCHC 32.7 RDW 16.0 H Plt Count 118 L MPV 9.3 Sodium Potassium Chloride Carbon Dioxide Anion Gap BUN Creatinine Est GFR (CKD-EPI)AfAm Est GFR (CKD-EPI)NonAf POC Glucometer 196 244 Random Glucose Calcium Phosphorus Magnesium Iron TIBC Iron Saturation Unsaturated IBC Urine Color Urine Appearance Urine pH Ur Specific Sheridan Urine Protein Urine Glucose (UA) Urine Ketones Urine Blood Urine Nitrite Urine Bilirubin Urine Urobilinogen Ur Leukocyte Esterase Urine WBC (Auto) Urine RBC (Auto) Urine Casts (Auto) U Epithel Cells (Auto) Urine Bacteria (Auto) Urine Yeast (Auto) Stool Occult Blood 09/30/19 09/30/19 09/30/19 06:06 06:09 09:30 WBC RBC Hgb Hct MCV MCH MCHC RDW Plt Count MPV Sodium 135 L Potassium 5.1 Chloride 100 Carbon Dioxide 27 Anion Gap 8 BUN 118.0 H* Creatinine 2.9 H Est GFR (CKD-EPI)AfAm 22.17 Est GFR (CKD-EPI)NonAf 19.13 POC Glucometer 124 Random Glucose 120 H Calcium 8.2 L Phosphorus 4.5 Magnesium 3.8 H Iron 45 L TIBC 231 L Iron Saturation 19 Unsaturated IBC 186 L Urine Color Yellow Urine Appearance Clear Urine pH 5.0 Ur Specific Sheridan 1.010 Urine Protein Negative Urine Glucose (UA) Trace Urine Ketones Negative Urine Blood 2+ H Urine Nitrite Negative Urine Bilirubin Negative Urine Urobilinogen 0.2 Ur Leukocyte Esterase Negative Urine WBC (Auto) 23.3 Urine RBC (Auto) 39.1 Urine Casts (Auto) 0.89 U Epithel Cells (Auto) 6.9 Urine Bacteria (Auto) 1.9 Urine Yeast (Auto) Few Stool Occult Blood 09/30/19 09/30/19 09/30/19 11:00 11:19 16:27 WBC RBC Hgb Hct MCV MCH MCHC RDW Plt Count MPV Sodium Potassium Chloride Carbon Dioxide Anion Gap BUN Creatinine Est GFR (CKD-EPI)AfAm Est GFR (CKD-EPI)NonAf POC Glucometer 180 126 Random Glucose Calcium Phosphorus Magnesium Iron TIBC Iron Saturation Unsaturated IBC Urine Color Urine Appearance Urine pH Ur Specific Sheridan Urine Protein Urine Glucose (UA) Urine Ketones Urine Blood Urine Nitrite Urine Bilirubin Urine Urobilinogen Ur Leukocyte Esterase Urine WBC (Auto) Urine RBC (Auto) Urine Casts (Auto) U Epithel Cells (Auto) Urine Bacteria (Auto) Urine Yeast (Auto) Stool Occult Blood Negative Active Medications Generic Name Dose Route Start Last Admin Trade Name Lalitq PRN Reason Stop Dose Admin Albuterol/Ipratropium 1 amp 09/26/19 16:00 09/30/19 13:00 Duoneb - NEB 1 amp RQID RANJAN Administration Amlodipine Besylate 10 mg 09/26/19 10:00 09/30/19 09:22 Norvasc - PO 10 mg DAILY RANJAN Administration Apixaban 2.5 mg 09/26/19 22:00 09/30/19 09:21 Eliquis - PO 2.5 mg BID RANJAN Administration Atorvastatin Calcium 80 mg 09/25/19 22:00 09/29/19 21:36 Lipitor - PO 80 mg HS RANJAN Administration Budesonide/Formoterol Fumarate 2 puff 09/26/19 22:00 09/30/19 09:22 Symbicort 160/4.5mcg - IH 2 puff BID RANJAN Administration Carbidopa/Levodopa 3 combo 09/26/19 22:00 09/30/19 13:19 Sinemet *Cr* 25/100 - PO 3 combo TID RANJAN Administration Carvedilol 25 mg 09/25/19 22:00 09/30/19 09:22 Coreg - PO 25 mg BID RANJAN Administration Docusate Sodium 100 mg 09/29/19 20:00 09/30/19 13:19 Colace - PO 100 mg TID RANJAN Administration Doxazosin Mesylate 2 mg 09/26/19 10:00 09/30/19 09:22 Cardura - PO 2 mg DAILY RANJAN Administration Ergocalciferol 50,000 unit 09/26/19 17:27 09/26/19 17:28 Drisdol - PO 50,000 unit We RANJAN Administration Ferrous Sulfate 325 mg 09/30/19 17:30 Feosol - PO BIDWM RANJAN Guaifenesin 5 ml 09/29/19 21:44 09/30/19 03:52 Diabetic Tussin Dm - PO 5 ml Q4H PRN Administration COUGH Hydralazine HCl 25 mg 09/27/19 22:00 09/30/19 09:22 Apresoline - PO 25 mg BID RANJAN Administration Insulin Aspart 1 vial 09/25/19 22:29 09/30/19 16:37 Novolog Vial Sliding Scale - SQ Not Given ACHS [facility] Protocol Pantoprazole Sodium 40 mg 09/27/19 10:00 09/30/19 09:22 Protonix - PO 40 mg DAILY RANJAN Administration Prednisone 40 mg 09/28/19 10:00 09/30/19 09:21 Deltasone - PO 40 mg DAILY RANJAN Administration Ranolazine 500 mg 09/25/19 22:00 09/30/19 09:22 Ranexa - PO 500 mg BID RANJAN Administration Senna 2 tab 09/27/19 22:00 09/29/19 21:35 Senna - PO 2 tab HS RANJAN Administration Tamsulosin HCl 0.8 mg 09/28/19 08:30 09/30/19 09:21 Flomax - PO 0.8 mg DAILY@0830 RANJAN Administration ASSESSMENT/PLAN: IMAGING: * CT chest: In comparison to a 2013 CT exam interval development of several nodular opacities are noted within the left lower lobe posteriorly probably representing infectious/inflammatory infiltrates and less likely neoplastic disease. Correlate clinically and with close follow-up CT. Interval development of bilateral mildly increased lung attenuation is seen diffusely - ? due to possible interstitial pulmonary vascular congestion versus acute or chronic interstitial pneumonitis. Clinical/laboratory correlation is suggested. Development of trace bilateral pleural effusions is noted with associated mild pleural thickening. Multichamber cardiomegaly is visualized which is probably somewhat increased. Status post median sternotomy with CABG as on the prior exam. Centrilobular emphysema is again seen including mild stable focal right upper lobe parenchymal scarring. Interval development of mild nonspecific mediastinal lymphadenopathy is noted. Correlate clinically and with close follow-up CT. * Renal/ bladder U/S: 1. Mildly atrophic kidneys with no evidence of hydronephrosis or obstructive uropathy. 2. Technically inadequate evaluation of the urinary bladder. ASSESSMENT/PLAN: 84 y.o. M HTN, HLD, CAD sp CABG x 2 vessels, carotid stenosis (s/p left endarterectomy), CHF, Afib on eliquis, DM, Parkinson disease, prostate cancer on radiation therapy, COPD on 2 liters NC at home, recurrent pneumonias presenting with generalized weakness, hypoxia and 1 episode hemoptysis. #Acute hypoxic respiratory failure 2/2 COPD exacerbation -CXR airspace opacities, mild venous congestion- no obvious infiltrates noted -CT chest findings as above -s/p IV steroids; Prednisone 40 PO Daily -continue duonebs, symbicort; holding home spiriva -augmentin for inflammatory airway dz- course completed -O2 supplementation prn- on 2L home O2 -pulm following #Mediastinal LAD, Interstitial disease, Nodular disease, RUL parenchymal scarring -Per pulm, will need repeat CT chest in 3 months as outpatient #ANÍBAL on CKD; likely prerenal + post-obstructive uropathy. Improving, Cr remains steady ~2.9 - Sandoval removed. TOV successful. -Increase Flomax to 0.8 QD -hold IVf for now -Renal following; immunology panel ordered, results pending -renal/ bladder U/S: Mildly atrophic kidneys with no evidence of hydronephrosis or obstructive uropathy. -Hold Lasix and Losartan. discussed with renal. #Hemoptysis; Stable, no more acute episodes, HD stable. Can cont home med: Eliquis 2.5 BID -Hemoglobin 7.6. Iron studies ordered. Iron, TIBC low. Will start Iron and colace. #CHF; No acute issues. Per PCP, no recent lasix use at home #HTN; Stable. Cont home meds: Coreg 25 BID, Amlo 10, Ranexa 500 BID, Hydralazine 25 BID #A-fib; Rate-controlled. Cont home meds: Eliquis 2.5 BID, Coreg 25 BID -EKG showing sinus bradycardia rate 57 (qtc 467) #Parkinsons disease; Stable, no acute issues. Cont home med: Carbidopa/levodopa TID #DM; Hold home DM meds. BGM/ISS ACHS. #FEN -no IVf -trend & replete lytes prn -diabetic/na controlled diet #Prophylaxis DVT: Cont home Eliquis GI: Cont home Protonix 40mg PO daily Dispo -Likely D/C tomorrow Visit type - Emergency Visit Emergency Visit: Yes ED Registration Date: 09/25/19 Care time: The patient presented to the Emergency Department on the above date and was hospitalized for further evaluation of their emergent condition. - New Patient This patient is new to me today: No - Critical Care Critical Care patient: No - Discharge Referral Referred to [facility] No ATTENDING PHYSICIAN STATEMENT I saw and evaluated the patient. I reviewed the resident's note and discussed the case with the resident. I agree with the resident's findings and plan as documented. SUBJECTIVE: OBJECTIVE: ASSESSMENT AND PLAN: <Malik Coelho - Last Filed: 09/30/19 19:43> Physical Exam: SUBJECTIVE: Patient seen and examined OBJECTIVE: Vital Signs Period Temp Pulse Resp BP Sys/Knutson Pulse Ox Last 24 Hr 97.6 F-98.3 F 55-58 18-20 134-154/46-54 94-97 GENERAL: The patient is awake, alert, and fully oriented, in no acute distress. HEAD: Normal with no signs of trauma. EYES: PERRL, extraocular movements intact, sclera anicteric, conjunctiva clear. No ptosis. ENT: Ears normal, nares patent, oropharynx clear without exudates, moist mucous membranes. NECK: Trachea midline, full range of motion, supple. LUNGS: Breath sounds equal, clear to auscultation bilaterally, no wheezes, no crackles, no accessory muscle use. HEART: Regular rate and rhythm, S1, S2 without murmur, rub or gallop. ABDOMEN: Soft, nontender, nondistended, normoactive bowel sounds, no guarding, no rebound, no hepatosplenomegaly, no masses. EXTREMITIES: 2+ pulses, warm, well-perfused, no edema. NEUROLOGICAL: Cranial nerves II through XII grossly intact. Normal speech, gait not observed. PSYCH: Normal mood, normal affect. SKIN: Warm, dry, normal turgor, no rashes or lesions noted Laboratory Results - last 24 hr 09/29/19 09/30/19 09/30/19 21:33 06:06 06:06 WBC 5.8 RBC 2.79 L Hgb 7.6 L Hct 23.3 L MCV 83.7 MCH 27.4 MCHC 32.7 RDW 16.0 H Plt Count 118 L MPV 9.3 Sodium 135 L Potassium 5.1 Chloride 100 Carbon Dioxide 27 Anion Gap 8 BUN 118.0 H* Creatinine 2.9 H Est GFR (CKD-EPI)AfAm 22.17 Est GFR (CKD-EPI)NonAf 19.13 POC Glucometer 244 Random Glucose 120 H Calcium 8.2 L Phosphorus 4.5 Magnesium 3.8 H Iron 45 L TIBC 231 L Iron Saturation 19 Unsaturated IBC 186 L Urine Color Urine Appearance Urine pH Ur Specific Sheridan Urine Protein Urine Glucose (UA) Urine Ketones Urine Blood Urine Nitrite Urine Bilirubin Urine Urobilinogen Ur Leukocyte Esterase Urine WBC (Auto) Urine RBC (Auto) Urine Casts (Auto) U Epithel Cells (Auto) Urine Bacteria (Auto) Urine Yeast (Auto) Stool Occult Blood 09/30/19 09/30/19 09/30/19 06:09 09:30 11:00 WBC RBC Hgb Hct MCV MCH MCHC RDW Plt Count MPV Sodium Potassium Chloride Carbon Dioxide Anion Gap BUN Creatinine Est GFR (CKD-EPI)AfAm Est GFR (CKD-EPI)NonAf POC Glucometer 124 Random Glucose Calcium Phosphorus Magnesium Iron TIBC Iron Saturation Unsaturated IBC Urine Color Yellow Urine Appearance Clear Urine pH 5.0 Ur Specific Sheridan 1.010 Urine Protein Negative Urine Glucose (UA) Trace Urine Ketones Negative Urine Blood 2+ H Urine Nitrite Negative Urine Bilirubin Negative Urine Urobilinogen 0.2 Ur Leukocyte Esterase Negative Urine WBC (Auto) 23.3 Urine RBC (Auto) 39.1 Urine Casts (Auto) 0.89 U Epithel Cells (Auto) 6.9 Urine Bacteria (Auto) 1.9 Urine Yeast (Auto) Few Stool Occult Blood Negative 09/30/19 09/30/19 09/30/19 11:19 16:27 16:45 WBC 6.7 RBC 2.88 L Hgb 7.8 L Hct 24.3 L MCV 84.3 MCH 27.2 MCHC 32.3 RDW 16.5 H Plt Count 119 L MPV 9.6 Sodium Potassium Chloride Carbon Dioxide Anion Gap BUN Creatinine Est GFR (CKD-EPI)AfAm Est GFR (CKD-EPI)NonAf POC Glucometer 180 126 Random Glucose Calcium Phosphorus Magnesium Iron TIBC Iron Saturation Unsaturated IBC Urine Color Urine Appearance Urine pH Ur Specific Sheridan Urine Protein Urine Glucose (UA) Urine Ketones Urine Blood Urine Nitrite Urine Bilirubin Urine Urobilinogen Ur Leukocyte Esterase Urine WBC (Auto) Urine RBC (Auto) Urine Casts (Auto) U Epithel Cells (Auto) Urine Bacteria (Auto) Urine Yeast (Auto) Stool Occult Blood Active Medications Generic Name Dose Route Start Last Admin Trade Name Freq PRN Reason Stop Dose Admin Albuterol/Ipratropium 1 amp 09/26/19 16:00 09/30/19 17:00 Duoneb - NEB 1 amp RQID RANJAN Administration Amlodipine Besylate 10 mg 09/26/19 10:00 09/30/19 09:22 Norvasc - PO 10 mg DAILY RANJAN Administration Apixaban 2.5 mg 09/26/19 22:00 09/30/19 09:21 Eliquis - PO 2.5 mg BID RANJAN Administration Atorvastatin Calcium 80 mg 09/25/19 22:00 09/29/19 21:36 Lipitor - PO 80 mg HS RANJAN Administration Budesonide/Formoterol Fumarate 2 puff 09/26/19 22:00 09/30/19 09:22 Symbicort 160/4.5mcg - IH 2 puff BID RANJAN Administration Carbidopa/Levodopa 3 combo 09/26/19 22:00 09/30/19 13:19 Sinemet *Cr* 25/100 - PO 3 combo TID RANJAN Administration Carvedilol 25 mg 09/25/19 22:00 09/30/19 09:22 Coreg - PO 25 mg BID RANJAN Administration Docusate Sodium 100 mg 09/29/19 20:00 09/30/19 13:19 Colace - PO 100 mg TID RANJAN Administration Doxazosin Mesylate 2 mg 09/26/19 10:00 09/30/19 09:22 Cardura - PO 2 mg DAILY RANJAN Administration Ergocalciferol 50,000 unit 09/26/19 17:27 09/26/19 17:28 Drisdol - PO 50,000 unit We RANJAN Administration Ferrous Sulfate 325 mg 09/30/19 17:30 09/30/19 17:00 Feosol - PO 325 mg BIDWM RANJAN Administration Guaifenesin 5 ml 09/29/19 21:44 09/30/19 03:52 Diabetic Tussin Dm - PO 5 ml Q4H PRN Administration COUGH Hydralazine HCl 25 mg 09/27/19 22:00 09/30/19 09:22 Apresoline - PO 25 mg BID RANJAN Administration Insulin Aspart 1 vial 09/25/19 22:29 09/30/19 16:37 Novolog Vial Sliding Scale - SQ Not Given ACHS [facility] Protocol Pantoprazole Sodium 40 mg 09/27/19 10:00 09/30/19 09:22 Protonix - PO 40 mg DAILY RANJAN Administration Prednisone 30 mg 09/30/19 19:39 Deltasone - PO DAILY RANJAN Ranolazine 500 mg 09/25/19 22:00 09/30/19 09:22 Ranexa - PO 500 mg BID RANJAN Administration Senna 2 tab 09/27/19 22:00 09/29/19 21:35 Senna - PO 2 tab HS RANJAN Administration Tamsulosin HCl 0.8 mg 09/28/19 08:30 09/30/19 09:21 Flomax - PO 0.8 mg DAILY@0830 RANJAN Administration ASSESSMENT/PLAN: ATTENDING PHYSICIAN STATEMENT I saw and evaluated the patient. I reviewed the resident's note and discussed the case with the resident. I agree with the resident's findings and plan as documented. Attending attestation: Patient seen and examined at bedside during my rounds. Patient Hb 7.6 today. No signs or symptoms of bleeding. Passed trial of void. On exam he is alert awake and oriented to person place and time. He has a regular rate and rhythm on cardiac exam. Lungs are clear to auscultation bilaterally. Abdomen is soft nontender nondistended. Trace if any lower extremity edema bilaterally. For his COPD exacerbation continue prednisone taper. Continue inhalers. Augmentin for inflammatory airway disease has been completed. Patient will need to follow-up with pulmonology to repeat a chest CT in 3 months as an outpatient for mediastinal lymphadenopathy, interstitial lung disease, nodular disease, and right upper lobe parenchymal scarring. For his acute renal failure on CKD this is likely postobstructive uropathy. Creatinine remains at 2.9 and this is likely his new baseline. Monitor Hb closely as he is on eliquis. Repeat Hb 7.8 and stable. Will hold off on tranfusion for now. Agree with iron and colace. Had BM today after tap water enema. Continue Eliquis 2.5 mg p.o. twice daily given the patient's age and renal function. Continue to hold Lasix and losartan. Nephrology consult noted and appreciated. Continue GI and DVT prophylaxis. Hemoptysis has resolved. Continue insulin for diabetes and Sinemet for Parkinson's. Rest as per resident's note above.
[2019-09-30] MEDS: FERROUS SO4 325 MG TABLET (FP) PO SCH (17:00)
[2019-09-30 17:13] LABS: HEMATOCRIT 24.3 % (35.4-49); HEMOGLOBIN 7.8 GM/dL (11.7-16.9); MCH 27.2 pg (25.7-33.7); MCHC 32.3 g/dl (32.0-35.9); MEAN CELL VOLUME 84.3 fl (80-96); MEAN PLT VOLUME 9.6 fl (7.5-11.1); PLATELET COUNT 119 K/MM3 (134-434); RBC 2.88 M/mm3 (4.00-5.60); RDW 16.5 % (11.9-15.9); WHITE BLOOD COUNT 6.7 K/mm3 (4.0-10.0)
[2019-09-30] MEDS ORDERED: predniSONE 20 MG TABLET (UD) PO SCH (19:39)
[2019-09-30] MEDS: SENNOSIDES 8.6MG TABLET (FP) PO SCH (22:23)
[2019-09-30] MEDS: ATORVASTATIN CA 80 MG TABLET (FP) PO SCH (22:23)
[2019-10-01] MEDS: guaiFENesin/D-M SUGAR-FREE/ACLHOL-FREE 118 ML BOTTLE PO PRN ×2 (01:30→05:39)
[2019-10-01] MEDS: DOCUSATE SODIUM 100 MG CAPSULE (FP) PO SCH ×2 (05:38→14:39)
[2019-10-01] MEDS: INSULIN SLIDING SCALE (NOVOLOG) 1 VIAL SQ SCH ×2 (06:19→12:56)
[2019-10-01 07:36] LABS: HEMATOCRIT 22.8 % (35.4-49); HEMOGLOBIN 7.4 GM/dL (11.7-16.9); MCH 27.3 pg (25.7-33.7); MCHC 32.4 g/dl (32.0-35.9); MEAN CELL VOLUME 84.3 fl (80-96); MEAN PLT VOLUME 9.7 fl (7.5-11.1); PLATELET COUNT 119 K/MM3 (134-434); RBC 2.71 M/mm3 (4.00-5.60); RDW 16.1 % (11.9-15.9); WHITE BLOOD COUNT 5.9 K/mm3 (4.0-10.0)
[2019-10-01 08:01] LABS: CALCIUM 8.1 mg/dL (8.5-10.1); CREATININE 2.9 mg/dL (0.55-1.3); MAGNESIUM 3.9 mg/dL (1.8-2.4); PHOSPHOROUS 4.9 mg/dL (2.5-4.9); POTASSIUM 4.7 mmol/L (3.5-5.1)
[2019-10-01] MEDS: DOXAZOSIN MESYLATE 2 MG TABLET PO SCH (10:05)
[2019-10-01] MEDS: PANTOPRAZOLE 40 MG TABLET PO SCH (10:06)
[2019-10-01] MEDS: amLODIPine BESYLATE 10 MG TABLET (FP) PO SCH (10:06)
[2019-10-01] MEDS: hydrALAZINE HCL 25 MG TABLET (FP) PO SCH (10:06)
[2019-10-01] MEDS: TAMSULOSIN HCL 0.4 MG CAP PO SCH (10:06)
[2019-10-01] MEDS: CARVEDILOL 25 MG TABLET (FP) PO SCH (10:06)
[2019-10-01] MEDS: RANOLAZINE E.R. 500 MG TABLET (FP) PO SCH (10:06)
[2019-10-01] MEDS: APIXABAN 2.5 MG TABLET PO SCH (10:06)
[2019-10-01] MEDS: FERROUS SO4 325 MG TABLET (FP) PO SCH (10:06)
[2019-10-01] MEDS: BUDESONIDE/FORMETEROL FUMARATE 160/4.5 mcg INHALER IH SCH (10:07)
--- NOTE | 2019-10-01 10:21 | PN ---
Progress Note, Physician History of Present Illness: PULMONARY ALERT,COMFORTABLE,-RESP DISTRESS - Current Medication List Current Medications: Active Medications Albuterol/Ipratropium (Duoneb -) 1 amp NEB RQID [facility] Last Admin: 09/30/19 20:25 Dose: 1 amp Documented by: Amlodipine Besylate (Norvasc -) 10 mg PO DAILY [facility] Last Admin: 10/01/19 10:06 Dose: 10 mg Documented by: Apixaban (Eliquis -) 2.5 mg PO BID [facility] Last Admin: 10/01/19 10:06 Dose: 2.5 mg Documented by: Atorvastatin Calcium (Lipitor -) 80 mg PO HS [facility] Last Admin: 09/30/19 22:23 Dose: 80 mg Documented by: Budesonide/Formoterol Fumarate (Symbicort 160/4.5mcg -) 2 puff IH BID [facility] Last Admin: 10/01/19 10:07 Dose: 2 puff Documented by: Carbidopa/Levodopa (Sinemet *Cr* 25/100 -) 3 combo PO TID [facility] Last Admin: 10/01/19 05:38 Dose: 3 combo Documented by: Carvedilol (Coreg -) 25 mg PO BID [facility] Last Admin: 10/01/19 10:06 Dose: 25 mg Documented by: Docusate Sodium (Colace -) 100 mg PO TID [facility] Last Admin: 10/01/19 05:38 Dose: 100 mg Documented by: Doxazosin Mesylate (Cardura -) 2 mg PO DAILY [facility] Last Admin: 10/01/19 10:05 Dose: 2 mg Documented by: Ergocalciferol (Drisdol -) 50,000 unit PO We [facility] Last Admin: 09/26/19 17:28 Dose: 50,000 unit Documented by: Ferrous Sulfate (Feosol -) 325 mg PO BIDWM [facility] Last Admin: 10/01/19 10:06 Dose: 325 mg Documented by: Guaifenesin (Diabetic Tussin Dm -) 5 ml PO Q4H PRN PRN Reason: COUGH Last Admin: 10/01/19 05:39 Dose: 5 ml Documented by: Hydralazine HCl (Apresoline -) 25 mg PO BID [facility] Last Admin: 10/01/19 10:06 Dose: 25 mg Documented by: Insulin Aspart (Novolog Vial Sliding Scale -) 1 vial SQ ACHS [facility]; Protocol Last Admin: 10/01/19 06:19 Dose: Not Given Documented by: Pantoprazole Sodium (Protonix -) 40 mg PO DAILY [facility] Last Admin: 10/01/19 10:06 Dose: 40 mg Documented by: Prednisone (Deltasone -) 30 mg PO DAILY [facility] Last Admin: 10/01/19 10:07 Dose: 30 mg Documented by: Ranolazine (Ranexa -) 500 mg PO BID [facility] Last Admin: 10/01/19 10:06 Dose: 500 mg Documented by: Senna (Senna -) 2 tab PO HS [facility] Last Admin: 09/30/19 22:23 Dose: 2 tab Documented by: Tamsulosin HCl (Flomax -) 0.8 mg PO DAILY@0830 [facility] Last Admin: 10/01/19 10:06 Dose: 0.8 mg Documented by: - Objective Vital Signs: Vital Signs Temperature 98.1 F 10/01/19 06:00 Pulse Rate 54 L 10/01/19 06:00 Respiratory Rate 10/01/19 06:00 Blood Pressure 141/54 L 10/01/19 06:00 O2 Sat by Pulse Oximetry (%) 98 09/30/19 21:00 Constitutional: Yes: Well Nourished, Calm Eyes: Yes: WNL HENT: Yes: WNL Neck: Yes: WNL Cardiovascular: Yes: Regular Rate and Rhythm, S1, S2 Respiratory: Yes: Diminished Gastrointestinal: Yes: Normal Bowel Sounds, Soft Extremities: Yes: WNL Edema: No Labs: CBC, BMP 10/01/19 06:25 10/01/19 06:25 INR, PTT INR 1.51 (0.83-1.09) H 09/26/19 06:37 Assessment/Plan Problem List - Problems (1) ILD (interstitial lung disease) Code(s): J84.9 - INTERSTITIAL PULMONARY DISEASE, UNSPECIFIED (2) Emphysema lung Code(s): J43.9 - EMPHYSEMA, UNSPECIFIED (3) CHF (congestive heart failure) Code(s): I50.9 - HEART FAILURE, UNSPECIFIED (4) COPD exacerbation Code(s): J44.1 - CHRONIC OBSTRUCTIVE PULMONARY DISEASE W (ACUTE) EXACERBATION (5) DM Diabetes mellitus Code(s): E11.9 - TYPE 2 DIABETES MELLITUS WITHOUT COMPLICATIONS Assessment/Plan IMP: Do not suspect PNA PLAN : Prednisone BD TX No smoking was discussed PFTs as an outpatient Repeat CT chest in 3 months for follow up DR SMITH
[2019-10-01 12:06] LABS: ANTIGLOMERULAR BASEMENT MEN.AB 3 units (0-20)
[2019-10-01] MEDS: ALBUTEROL SO4 2.5/IPRATROPIUM 0.5 INH SOL 3 ML VIAL.NEB. NEB SCH ×2 (13:10→16:02)
[2019-10-01 15:06] VITALS: BP 154/58; PULSE 57; TEMP 97.6
--- NOTE | 2019-10-01 15:59 | PN ---
Teaching Attending Note Name of Resident: Azeb Daugherty ATTENDING PHYSICIAN STATEMENT I saw and evaluated the patient. I reviewed the resident's note and discussed the case with the resident. I agree with the resident's findings and plan as documented. SUBJECTIVE: No fever or chills. No SOB , no cough, he feels much better OBJECTIVE: NAD,awake, alert, MMM CV: RRR, no MRG Lungs: CTAB . ABd: soft, NT, Nd , NL Bs . bladder is percussed just above the pubic symphasis Ext: No edema or erythema on upper or lower extremities. ASSESSMENT AND PLAN: 84 y/o man with h/o hypertension, HLD, CKD, CAD sp CABG x 2 vessels, carotid stenosis, CHF, Afib, Parkinson disease, prostate cancer on radiation therapy, COPD on 2 liters NC at home, recurrent pneumonias who presented with SOB and was found to have acute resp failure 1- Acute hypoxic respiratory failure deu to Acute COPD exacerbation .improved -cont prednisone taper - cont symbicort 2- Mediastinal Lymphadenopathy b/l pleural effusions interstitial disease/ nodular disease in both lungs All these findings need to be followed in [address] scan 3- ANÍBAL on CKD : possible new base line - losartan to be resumed by renal after dc . blood work as out pt with renal f/u . d/w Dr. Sanders 4- H/o A fib : - eliquis BID - coreg BID . 5- HTN: norvasc . coreg . HZN 6- Dm: resume orals at dc 7- urinary retention, resolved . will perform bladder scan post voiding before dc dc home later today
--- NOTE | 2019-10-01 16:06 | DS ---
Physical Exam: SUBJECTIVE: Patient seen and examined. He reports some difficulty with urination. He denies abdominal pain, n/v. OBJECTIVE: Vital Signs Period Temp Pulse Resp BP Sys/Knutson Pulse Ox Last 24 Hr 97.6 F-98.5 F 53-60 20-20 134-154/40-64 98-98 PHYSICAL EXAM GENERAL: The patient is awake, alert, and fully oriented, in no acute distress. HEAD: Normal with no signs of trauma. EYES: PERRL, extraocular movements intact, conjunctiva clear. ENT: Ears normal, nares patent, moist mucous membranes. NECK: Trachea midline, full range of motion. LUNGS: Clear to auscultation bilaterally, no wheezes, no crackles, no accessory muscle use. On NC. HEART: Regular rate and rhythm, S1, S2 without murmur. ABDOMEN: Soft, nontender, nondistended, normoactive bowel sounds. EXTREMITIES: Warm, well-perfused, no edema. NEUROLOGICAL: Cranial nerves II through XII grossly intact. Normal speech. PSYCH: Normal mood, normal affect. SKIN: Warm, dry, normal turgor. LABS Laboratory Results - last 24 hr 09/27/19 09/30/19 09/30/19 06:05 16:27 16:45 WBC 6.7 RBC 2.88 L Hgb 7.8 L Hct 24.3 L MCV 84.3 MCH 27.2 MCHC 32.3 RDW 16.5 H Plt Count 119 L MPV 9.6 Sodium Potassium Chloride Carbon Dioxide Anion Gap BUN Creatinine Est GFR (CKD-EPI)AfAm Est GFR (CKD-EPI)NonAf POC Glucometer 126 Random Glucose Calcium Phosphorus Magnesium Glomerular Base Memb Ab 3 09/30/19 10/01/19 10/01/19 22:21 05:24 06:25 WBC 5.9 RBC 2.71 L Hgb 7.4 L Hct 22.8 L MCV 84.3 MCH 27.3 MCHC 32.4 RDW 16.1 H Plt Count 119 L MPV 9.7 Sodium Potassium Chloride Carbon Dioxide Anion Gap BUN Creatinine Est GFR (CKD-EPI)AfAm Est GFR (CKD-EPI)NonAf POC Glucometer 208 103 Random Glucose Calcium Phosphorus Magnesium Glomerular Base Memb Ab 10/01/19 10/01/19 06:25 12:11 WBC RBC Hgb Hct MCV MCH MCHC RDW Plt Count MPV Sodium 136 Potassium 4.7 Chloride 100 Carbon Dioxide 27 Anion Gap 9 BUN 120.0 H* Creatinine 2.9 H Est GFR (CKD-EPI)AfAm 22.17 Est GFR (CKD-EPI)NonAf 19.13 POC Glucometer 144 Random Glucose 99 Calcium 8.1 L Phosphorus 4.9 Magnesium 3.9 H Glomerular Base Memb Ab HOSPITAL COURSE: 84 year old male with known historty of hypertension, HLD, CAD sp CABG x 2 vessels, carotid stenosis, CHF, Afib on Xarelto, Parkinson disease, prostate cancer on radiation therapy, COPD on 2 liters NC at home, recurrent pneumonias, who presents to the ED complaining of severe weakness and bloody cough. He was on cephalosporin with no improvement. Eliquis was initially held. Augmentin was given for COPD exacerbation as well as steroid taper. On CT, a mediastinal lymphadenopathy was noted. Pt was also found to have urinary retention and switched to Flomax then eventually increased the dose. On d/c, pt was started on Rapaflo by Dr. Hunt (who follows pt outpt.) Date of Admission:09/25/19 Date of Discharge: 10/01/19 Discharge Summary Problems reviewed: Yes Reason For Visit: CHF,ACUTE RESPIRATORY FAILURE W HYPOXEMIA Current Active Problems Emphysema lung (Chronic) Condition: Improved - Instructions Diet, Activity, Other Instructions: Your Visit You were seen in the hospital for complaints of weakness and cough. You were found to have an acute COPD (chronic obstructive pulmonary disease) exacerbation. You were given steroids to help with your breathing. Your hospital stay was complicated by urinary retention after which you were seen by a urologist and a yanes was placed temporarily to help you urinate. During your your hospital stay, your symptoms improved and the yanes was removed. You were found to be anemic. This will need to be followed by your doctor to make sure your labs are stable, and you are not bleeding. Medications We have made the following changes to your medication regimen: Please START prednisone daily. Follow the taper. you are given 10 mg pills 6/30 30mg (3 pills) 7/1 20mg (2 pills) 7/2 20mg (2 pills) 7/3 20mg (2 pills) 7/4 10mg (1 pill) 7/5 10mg (1 pill) 7/6 10mg (1 pill) Please START taking Rapaflo 8mg once a day by mouth to help you urinate. Please START ferrous sulfate 325mg twice a day. Please STOP taking Losartan for now until your kidney function stabilizes. Please also stop Lasix. You will need to get repeat blood work done prior to restarting this medication. Please STOP Spiriva. Follow Up Please follow up with your primary care physician, Dr. Orlando, within 1 week. You will need repeat blood work (BMP) within 1 week to assess your kidney function. Please follow up with your kidney doctor, Dr. Sanders within 1 week. Please follow up with your urologist, Dr. Lalita Hunt within 1 week. Please follow up with your secondary spanish teacher, Dr. Chu within 1 week. You will need a repeat CT chest in 3 months for outpatient follow up. You will also need pulmonary functions tests as an outpatient. Recommendations It is important that you STOP smoking as this can be detrimental to your health. If you experience worsening shortness of breath, chest pain, palpitations or other associated symptoms, please proceed to your nearest emergency room immediately. Have your primary care doctor check your vitamin D level and advise on D supplementsw Referrals: Aj Chu MD [Staff Physician] - 1 Week Marlon Sanders MD [Staff Physician] - 10/03/19 9:00 am Lalita Hunt MD [Staff Physician] - 1 Week Krystal Orlando [Primary Care Provider] - 1 Week Disposition: VNS/HOME HEALTH CARE - Home Medications Comprehensive Discharge Medication List: Ambulatory Orders Amlodipine Besylate 10 mg PO DAILY 09/25/19 Apixaban [Eliquis] 2.5 mg PO BID 09/25/19 Atorvastatin Ca [Lipitor] 80 mg PO HS 09/25/19 Carvedilol 25 mg PO BID 09/25/19 Empagliflozin [Jardiance] 25 mg PO DAILY 09/25/19 Ergocalciferol (Vitamin D2) [Vitamin D2] 5,000 unit PO WEEKLY 09/25/19 Glimepiride 1 mg PO DAILY 09/25/19 Hydralazine HCl 25 mg PO BID 09/25/19 Pantoprazole Sodium 40 mg PO DAILY 09/25/19 Ranolazine [Ranexa -] 500 mg PO BID 09/25/19 Budesonide/Formeterol Fumarate [SYMBICORT 160/4.5mcg -] 1 inh PO BID 09/26/19 Carbidopa/Levodopa [Carbidopa-Levo ER 50-200 Tab] 1.5 each PO TID 09/26/19 Ferrous Sulfate [Feosol] 325 mg PO BIDWM #60 ud 10/01/19 Prednisone 10 mg PO DAILY 7 Days #12 tablet 10/01/19 Silodosin [Rapaflo] 8 mg PO DAILY #30 capsule 10/01/19 - Discharge Referral Referred to [facility] No ATTENDING PHYSICIAN STATEMENT I saw and evaluated the patient. I reviewed the resident's note and discussed the case with the resident. I agree with the resident's findings and plan as documented. SUBJECTIVE: OBJECTIVE: ASSESSMENT AND PLAN:
--- NOTE | 2019-10-01 16:50 | PN ---
Progress Note, Physician History of Present Illness: Pt seen and examined at bedside. He is awake and alert. He denies shortness of breath. - Current Medication List Current Medications: Active Medications Albuterol/Ipratropium (Duoneb -) 1 amp NEB RQID ON LICENSE OF [facility] Last Admin: 10/01/19 16:02 Dose: 1 amp Documented by: Amlodipine Besylate (Norvasc -) 10 mg PO DAILY ON LICENSE OF [facility] Last Admin: 10/01/19 10:06 Dose: 10 mg Documented by: Apixaban (Eliquis -) 2.5 mg PO BID ON LICENSE OF [facility] Last Admin: 10/01/19 10:06 Dose: 2.5 mg Documented by: Atorvastatin Calcium (Lipitor -) 80 mg PO HS ON LICENSE OF [facility] Last Admin: 09/30/19 22:23 Dose: 80 mg Documented by: Budesonide/Formoterol Fumarate (Symbicort 160/4.5mcg -) 2 puff IH BID ON LICENSE OF [facility] Last Admin: 10/01/19 10:07 Dose: 2 puff Documented by: Carbidopa/Levodopa (Sinemet *Cr* 25/100 -) 3 combo PO TID ON LICENSE OF [facility] Last Admin: 10/01/19 14:39 Dose: 3 combo Documented by: Carvedilol (Coreg -) 25 mg PO BID ON LICENSE OF [facility] Last Admin: 10/01/19 10:06 Dose: 25 mg Documented by: Docusate Sodium (Colace -) 100 mg PO TID ON LICENSE OF [facility] Last Admin: 10/01/19 14:39 Dose: 100 mg Documented by: Doxazosin Mesylate (Cardura -) 2 mg PO DAILY ON LICENSE OF [facility] Last Admin: 10/01/19 10:05 Dose: 2 mg Documented by: Ergocalciferol (Drisdol -) 50,000 unit PO We ON LICENSE OF [facility] Last Admin: 09/26/19 17:28 Dose: 50,000 unit Documented by: Ferrous Sulfate (Feosol -) 325 mg PO BIDWM ON LICENSE OF [facility] Last Admin: 10/01/19 10:06 Dose: 325 mg Documented by: Guaifenesin (Diabetic Tussin Dm -) 5 ml PO Q4H PRN PRN Reason: COUGH Last Admin: 10/01/19 05:39 Dose: 5 ml Documented by: Hydralazine HCl (Apresoline -) 25 mg PO BID ON LICENSE OF [facility] Last Admin: 10/01/19 10:06 Dose: 25 mg Documented by: Insulin Aspart (Novolog Vial Sliding Scale -) 1 vial SQ ACHS ON LICENSE OF [facility]; Protocol Last Admin: 10/01/19 12:56 Dose: Not Given Documented by: Pantoprazole Sodium (Protonix -) 40 mg PO DAILY ON LICENSE OF [facility] Last Admin: 10/01/19 10:06 Dose: 40 mg Documented by: Prednisone (Deltasone -) 30 mg PO DAILY ON LICENSE OF [facility] Last Admin: 10/01/19 10:07 Dose: 30 mg Documented by: Ranolazine (Ranexa -) 500 mg PO BID ON LICENSE OF [facility] Last Admin: 10/01/19 10:06 Dose: 500 mg Documented by: Senna (Senna -) 2 tab PO HS ON LICENSE OF [facility] Last Admin: 09/30/19 22:23 Dose: 2 tab Documented by: Tamsulosin HCl (Flomax -) 0.8 mg PO DAILY@0830 ON LICENSE OF [facility] Last Admin: 10/01/19 10:06 Dose: 0.8 mg Documented by: - Objective Vital Signs: Vital Signs Temperature 97.6 F 10/01/19 14:05 Pulse Rate 57 L 10/01/19 14:05 Respiratory Rate 10/01/19 14:05 Blood Pressure 154/58 L 10/01/19 14:05 O2 Sat by Pulse Oximetry (%) 98 10/01/19 09:00 Constitutional: Yes: Calm Eyes: Yes: Conjunctiva Clear HENT: Yes: Atraumatic Neck: Yes: Supple Cardiovascular: Yes: S1, S2 Respiratory: Yes: CTA Bilaterally, On Nasal O2 Gastrointestinal: Yes: Soft Musculoskeletal: Yes: WNL Edema: No Neurological: Yes: Oriented Psychiatric: Yes: Oriented Labs: CBC, BMP 10/01/19 06:25 10/01/19 06:25 INR, PTT INR 1.51 (0.83-1.09) H 09/26/19 06:37 Problem List - Problems (1) Renal insufficiency Code(s): N28.9 - DISORDER OF KIDNEY AND URETER, UNSPECIFIED Assessment/Plan Current Medications Generic Name Dose Route Start Last Admin Trade Name Freq PRN Reason Stop Dose Admin Albuterol/Ipratropium 1 amp 09/26/19 16:00 10/01/19 16:02 Duoneb - NEB 1 amp RQID ON LICENSE OF [facility] Administration Amlodipine Besylate 10 mg 09/26/19 10:00 10/01/19 10:06 Norvasc - PO 10 mg DAILY RANJAN Administration Apixaban 2.5 mg 09/26/19 22:00 10/01/19 10:06 Eliquis - PO 2.5 mg BID RANJAN Administration Atorvastatin Calcium 80 mg 09/25/19 22:00 09/30/19 22:23 Lipitor - PO 80 mg HS RANJAN Administration Budesonide/Formoterol Fumarate 2 puff 09/26/19 22:00 10/01/19 10:07 Symbicort 160/4.5mcg - IH 2 puff BID RANJAN Administration Carbidopa/Levodopa 3 combo 09/26/19 22:00 10/01/19 14:39 Sinemet *Cr* 25/100 - PO 3 combo TID RANJAN Administration Carvedilol 25 mg 09/25/19 22:00 10/01/19 10:06 Coreg - PO 25 mg BID RANJAN Administration Docusate Sodium 100 mg 09/29/19 20:00 10/01/19 14:39 Colace - PO 100 mg TID RANJAN Administration Doxazosin Mesylate 2 mg 09/26/19 10:00 10/01/19 10:05 Cardura - PO 2 mg DAILY RANJAN Administration Ergocalciferol 50,000 unit 09/26/19 17:27 09/26/19 17:28 Drisdol - PO 50,000 unit We RANJAN Administration Ferrous Sulfate 325 mg 09/30/19 17:30 10/01/19 10:06 Feosol - PO 325 mg BIDWM RANJAN Administration Guaifenesin 5 ml 09/29/19 21:44 10/01/19 05:39 Diabetic Tussin Dm - PO 5 ml Q4H PRN Administration COUGH Hydralazine HCl 25 mg 09/27/19 22:00 10/01/19 10:06 Apresoline - PO 25 mg BID RANJAN Administration Insulin Aspart 1 vial 09/25/19 22:29 10/01/19 12:56 Novolog Vial Sliding Scale - SQ Not Given ACHS ON LICENSE OF [facility] Protocol Pantoprazole Sodium 40 mg 09/27/19 10:00 10/01/19 10:06 Protonix - PO 40 mg DAILY RANJAN Administration Prednisone 30 mg 09/30/19 19:39 10/01/19 10:07 Deltasone - PO 30 mg DAILY RANJAN Administration Ranolazine 500 mg 09/25/19 22:00 10/01/19 10:06 Ranexa - PO 500 mg BID RANJAN Administration Senna 2 tab 09/27/19 22:00 09/30/19 22:23 Senna - PO 2 tab HS RANJAN Administration Tamsulosin HCl 0.8 mg 09/28/19 08:30 10/01/19 10:06 Flomax - PO 0.8 mg DAILY@0830 RANJAN Administration Laboratory Tests 09/27/19 06:05 c-ANCA Pending Proteinase 3 (PR3) Pending p-ANCA Pending Atypical p-ANCA Pending Myeloperoxidase Ab Pending Glomerular Base Memb Ab 3 Impression 1. ckd 2. anemia 3. urinary obstruction 4. hemoptysis 5. chf 6. cad 7. htn 8. a-fib Plan - renal function at baseline - repeat bun after off of steroids - follow anca - will need outpt follow up for ckd - discussed with medical team - he has not had hemoptysis - cont iron supps
--- NOTE | 2019-10-02 09:24 | PN ---
DATE OF VISIT: Patient is an 84-year-old male with multiple medical problems including cancer of the prostate status post radiation therapy. Also has high blood pressure, atrial fibrillation, dyslipidemia, diabetes, gastroesophageal reflux disease, came in with urinary retention. A Sandoval catheter was placed and patient was placed on 0.8 mg of Flomax. The Sandoval catheter was removed early yesterday morning for a trial at voiding, which the patient did well. Presently he is voiding well. Some frequency, no dysuria. His urine cultures grew out negative. His renal and pelvic ultrasound revealed bilateral medical renal disease. No stones or hydronephrosis. No signs of obstructive uropathy. The patient's baseline BUN is 120 and creatinine 2.9. His white count is 5.9, hemoglobin 7.4, hematocrit 22.8. Patient is urologically stable. Will follow in office. Apryl [id number]
[2019-10-02 18:10] LABS: ATYPICAL pANCA <1:20 titer (Neg:<1:20); C-ANCA <1:20 titer (Neg:<1:20)
--- NOTE | 2019-10-08 09:32 | PN ---
DATE OF VISIT: DATE OF DICTATION: 09/30/2019 Patient is an 84-year-old male with multiple medical problems including anemia, chronic kidney disease, prostate cancer, hemoptysis, heart failure, hypertension, atrial fibrillation. Was found with urinary retention. Had a Sandoval catheter placed and was placed on 0.8 mg of Flomax. A second trial at voiding has been successful. He is voiding properly. His bladder is not distended. He will be tapered off his steroids. His laboratory data reveals a white count of 5.8, hemoglobin 7.6, hematocrit 23.3. His BUN 118, creatinine 2.9. Renal and pelvic ultrasound revealed medical renal disease with no evidence of hydronephrosis or upper tract stones. His chronic renal failure is most likely secondary to his diabetes and heart failure. We will follow patient in office in 2 weeks' time. ANDREW HERNANDEZ M.D. [id number]
== END 2019-10-01 17:23 | disposition home health service (06) | DRG 189 ==
LOC: JER 09:38 → SUPCPDRO 09:38 → JERBED 12:41 → J4W 21:04
PROVIDERS: ADMIT Internal Medicine; ATTEND Internal Medicine
DX: J96.01 Acute respiratory failure with hypoxia (principal); N17.9 Acute kidney failure, unspecified; I13.0 Hypertensive heart and chronic kidney disease with heart failure and stage 1 through stage 4 chronic kidney disease, or unspecified chronic kidney disease; N18.4 Chronic kidney disease, stage 4 (severe); I10 Essential (primary) hypertension; I48.91 Unspecified atrial fibrillation; E78.5 Hyperlipidemia, unspecified; E11.22 Type 2 diabetes mellitus with diabetic chronic kidney disease; I50.9 Heart failure, unspecified; G20 Parkinson's disease; I65.29 Occlusion and stenosis of unspecified carotid artery; R33.9 Retention of urine, unspecified; J44.9 Chronic obstructive pulmonary disease, unspecified; D64.9 Anemia, unspecified; R59.1 Generalized enlarged lymph nodes; I25.10 Atherosclerotic heart disease of native coronary artery without angina pectoris; J43.9 Emphysema, unspecified; N40.0 Benign prostatic hyperplasia without lower urinary tract symptoms; J96.02 Acute respiratory failure with hypercapnia; F17.210 Nicotine dependence, cigarettes, uncomplicated; Z85.46 Personal history of malignant neoplasm of prostate; Z95.1 Presence of aortocoronary bypass graft
CPT/HCPCS: 36415; 71045-TC-FY; 71046-TC-FY; 71250-TC; 76775-TC; 76856-TC; 80048; 80053; 81003; 82272; 82436; 82565; 82728; 82962; 83516; 83520; 83540; 83550; 83605; 83615; 83735; 83880; 84100; 84133; 84300; 84484; 85025; 85027; 85610; 85730; 86038; 86140; 86256; 87040; 87070; 87086; 87205; 93005; 93010; 94640; 97116-GP; 97162-GP; 99285-25; U0003

== ENCOUNTER 2019-10-12 22:56 | Inpatient (IN) | payer OTHER, MEDICARE ==
--- NOTE | 2019-10-12 23:03 | PDOC ---
History of Present Illness - General Chief Complaint: Weakness Stated Complaint: WEAKNESS Time Seen by Provider: 10/12/19 23:02 History Source: Patient Exam Limitations: Other (difficult to understand) - History of Present Illness Initial Comments: 84 y/o male with history of HTN, CHF, DM, COPD, CAD s/p CABG (2008), recurrent PNA (on 2L home O2), afib on xeralto, Parkinson's disease, and prostate CA presents 1 day of nausea and vomiting. He presented to the ED on 09/24 for bloody cough and was admitted for CHF exacerbation and respiratory failure. He continues to have a hemoptysis. He reports nausea and vomiting x1 day without hematemesis, SOB, and LE edema. He denies fever, chest pain, lightheadedness, syncope, headache, numbness, tingling, weakness, abdominal pain, diarrhea, constipation, or urinary symptoms. Past History - Medical History Allergies/Adverse Reactions: Allergies Allergy/AdvReac Type Severity Reaction Status Date / Time No Known Allergies Allergy Verified 10/12/19 23:07 Home Medications: Ambulatory Orders Amlodipine Besylate 10 mg PO DAILY 09/25/19 Apixaban [Eliquis] 2.5 mg PO BID 09/25/19 Atorvastatin Ca [Lipitor] 80 mg PO HS 09/25/19 Carvedilol 25 mg PO BID 09/25/19 Empagliflozin [Jardiance] 25 mg PO DAILY 09/25/19 Ergocalciferol (Vitamin D2) [Vitamin D2] 5,000 unit PO WEEKLY 09/25/19 Glimepiride 1 mg PO DAILY 09/25/19 Hydralazine HCl 25 mg PO BID 09/25/19 Pantoprazole Sodium 40 mg PO DAILY 09/25/19 Ranolazine [Ranexa -] 500 mg PO BID 09/25/19 Budesonide/Formeterol Fumarate [SYMBICORT 160/4.5mcg -] 1 inh PO BID 09/26/19 Carbidopa/Levodopa [Carbidopa-Levo ER 50-200 Tab] 1.5 each PO TID 09/26/19 Ferrous Sulfate [Feosol] 325 mg PO BIDWM #60 ud 10/01/19 Prednisone 10 mg PO DAILY 7 Days #12 tablet 10/01/19 Silodosin [Rapaflo] 8 mg PO DAILY #30 capsule 10/01/19 Anemia: Yes Asthma: Yes Cancer: Yes (Prostate, RADIATION 1986) Cardiac Disorders: Yes (AFIB,Cad, CABG, VT) CVA: Yes (OCCLUSION AND STENOSIS OF CARITID ARTERY) COPD: Yes CHF: Yes Dementia: No Diabetes: Yes GI Disorders: Yes (GASTRIC AND COLON POLYPS,CHRONIC CONSTIPATION) Disorders: No HTN: Yes Hypercholesterolemia: Yes Liver Disease: No Seizures: No Thyroid Disease: No - Surgical History Abdominal Surgery: No Appendectomy: No Cardiac Surgery: Yes (CABG x 3, carotid endartorectomy) Cholecystectomy: No Lung Surgery: Yes (R CHEST TUBE) Neurologic Surgery: No Orthopedic Surgery: No - Immunization History Immunization Up to Date: Yes - Psycho-Social/Smoking History Smoking Status: Yes Smoking History: Never smoked Have you smoked in the past 12 months: No Number of Cigarettes Smoked Daily: 0 If you are a former smoker, when did you quit?: 1986 Cigars Per Day: 0 Review of Systems - Review of Systems Able to Perform ROS?: Yes Is the patient limited Iraqi proficient: Yes Constitutional: No: Chills, Fever Respiratory: Yes: Cough, Shortness of Breath, Wheezing, Hemoptysis Cardiac (ROS): Yes: Edema. No: Chest Pain, Lightheadedness, Syncope ABD/GI: Yes: Nausea, Vomiting. No: Constipated, Diarrhea : No: Dysuria, Frequency, Hematuria Musculoskeletal: No: Symptoms Reported Integumentary: No: Symptoms Reported Neurological: No: Headache, Numbness, Tingling, Weakness All Other Systems: Reviewed and Negative *Physical Exam - Physical Exam General Appearance: Yes: Mild Distress HEENT: positive: EOMI, MARCIA Respiratory/Chest: positive: Rales, Wheezing (mild wheezes bilaterally) Cardiovascular: positive: S1, S2, Edema (3+ pitting edema), Bradycardia Gastrointestinal/Abdominal: positive: Normal Bowel Sounds, Soft. negative: Tender Musculoskeletal: positive: Normal Inspection Extremity: positive: Normal Inspection Integumentary: positive: Normal Color, Dry, Warm Neurologic: positive: Alert ED Treatment Course - LABORATORY CBC & Chemistry Diagram: 10/13/19 00:10 10/13/19 00:10 Medical Decision Making - Medical Decision Making 84 y/o male with history of HTN, CHF, DM, COPD, CAD s/p CABG (2008), recurrent PNA (on 2L home O2), afib on xeralto, Parkinson's disease, and prostate CA presents for nausea, vomiting, and SOB. Differential includes but not limited to ACS, CHF exacerbation, COPD exacerbation, Pneumonia, COVID, PE. Low/Moderate risk Well's score, but low suspicion since he's not tachycardic, baseline hypoxic, known hemoptysis and on Xeralto. CBC demonstrated anemia with Hgb at 5.8, and was given 1 unit PRBC. 10/13/19 01:34 Discharge - Discharge Information Problems reviewed: Yes Clinical Impression/Diagnosis: CHF (congestive heart failure) Qualifiers: Heart failure type: unspecified Heart failure chronicity: acute on chronic Qualified Code(s): I50.9 - Heart failure, unspecified Pneumonia Qualifiers: Pneumonia type: due to unspecified organism Laterality: unspecified laterality Lung location: unspecified part of lung Qualified Code(s): J18.9 - Pneumonia, unspecified organism Anemia Qualifiers: Anemia type: unspecified type Qualified Code(s): D64.9 - Anemia, unspecified Condition: Guarded - Admission Yes - Follow up/Referral Referrals: Krystal Orlando [Primary Care Provider] - - Patient Discharge Instructions - Post Discharge Activity
[2019-10-12] MEDS ORDERED: ONDANSETRON 4 MG/2 ML VIAL IVPB ONE (23:53)
--- NOTE | 2019-10-13 00:10 | PDOC ---
Attending Attestation - Resident Resident Name: Immanuel Millan - ED Attending Attestation I have performed the following: I have examined & evaluated the patient, The case was reviewed & discussed with the resident, I agree w/resident's findings & plan - HPI HPI: 10/13/19 00:46 Pt with a hx of CAD, DM, HTN, emphysema, and anemia, comes in with weakness that is generalized as well as hemoptysis. - Physicial Exam PE: 10/13/19 00:47 Agree with resident exam. Pt has no fever and no chills. Pt has normal heart; RRR lungs: coarse breath sounds on the left side. Pt has edema of his legs 2+ up to the knees. Pt has A+Ox3 neuro weak equally throughout, but moving all extremities Pt has no flank pain - Medical Decision Making 10/13/19 00:50 Pt is coughing up chunks of blood. Pt appears pale He states that he has no blood in his stool Pt has worsening anemia; Hb is 5.8 He will get a blood transfusion. 10/13/19 01:41 BNP is elevated; 114K BUN/Cr better than usual Pt has patchy fluffy infiltrates/effusion of bilateral lungs. Levaquin 500mg for pneumonia Lasix 10mg IV for CHF and diuresis Pt will be admitted to med/surg. Discharge - Discharge Information Problems reviewed: Yes Clinical Impression/Diagnosis: CHF (congestive heart failure) Qualifiers: Heart failure type: unspecified Heart failure chronicity: acute on chronic Qualified Code(s): I50.9 - Heart failure, unspecified Pneumonia Qualifiers: Pneumonia type: due to unspecified organism Laterality: unspecified laterality Lung location: unspecified part of lung Qualified Code(s): J18.9 - Pneumonia, unspecified organism Anemia Qualifiers: Anemia type: unspecified type Qualified Code(s): D64.9 - Anemia, unspecified Condition: Guarded - Follow up/Referral - Patient Discharge Instructions - Post Discharge Activity
[2019-10-13 00:36] LABS: BASO % 0.4 % (0-2.0); EOS % 0.9 % (0-4.5); HEMATOCRIT 17.7 % (35.4-49); LYMPH % 2.9 % (8-40); MCH 28.7 pg (25.7-33.7); MEAN CELL VOLUME 87.1 fl (80-96); MEAN PLT VOLUME 9.2 fl (7.5-11.1); MONO % 8.4 % (3.8-10.2); NEUT % 87.4 % (42.8-82.8); PLATELET COUNT 101 K/MM3 (134-434); RBC 2.03 M/mm3 (4.00-5.60); RDW 19.3 % (11.9-15.9); WHITE BLOOD COUNT 8.7 K/mm3 (4.0-10.0)
[2019-10-13 00:41] LABS: HEMOGLOBIN 5.8 GM/dL (11.7-16.9)
[2019-10-13 00:48] LABS: INR 2.11 (0.83-1.09); PROTHROMBIN TIME (PATIENT) 25.1 SEC (9.7-13.0)
[2019-10-13 00:59] LABS: ALBUMIN 3.1 g/dl (3.4-5.0); ALK PHOS 56 U/L (45-117); ANION GAP 4 MMOL/L (8-16); BILIRUBIN,TOTAL 0.8 mg/dL (0.2-1); CALCIUM 7.9 mg/dL (8.5-10.1); CHLORIDE 106 mmol/L (98-107); CO2 32 mmol/L (21-32); CREATININE 2.4 mg/dL (0.55-1.3); GLUCOSE,RANDOM 110 mg/dL (74-106); N-TERMINAL BNP 11457.6 pg/ml (5-450); POTASSIUM 4.7 mmol/L (3.5-5.1); SGOT/AST 18 U/L (15-37); SGPT/ALT 7 U/L (13-61); SODIUM 141 mmol/L (136-145); TOT PROT 5.5 g/dl (6.4-8.2)
[2019-10-13 01:01] LABS: BLOOD UREA NITROGEN 83.6 mg/dL (7-18)
--- NOTE | 2019-10-13 01:52 | PDOC ---
*Physical Exam - Vital Signs Last Vital Signs Temp Pulse Resp BP Pulse Ox 97.8 F 52 L 18 123/51 L 100 10/12/19 22:58 10/12/19 22:58 10/12/19 22:58 10/12/19 22:58 10/12/19 22:58 ED Treatment Course - LABORATORY CBC & Chemistry Diagram: 10/13/19 00:10 10/13/19 00:10 - ADDITIONAL ORDERS Additional order review: Laboratory Results 10/13/19 10/13/19 10/13/19 01:27 00:10 00:10 PT with INR 25.10 H INR 2.11 H Sodium 141 Potassium 4.7 Chloride 106 Carbon Dioxide 32 Anion Gap 4 L BUN 83.6 H Creatinine 2.4 H Est GFR (CKD-EPI)AfAm 27.87 Est GFR (CKD-EPI)NonAf 24.04 Random Glucose 110 H Calcium 7.9 L Total Bilirubin 0.8 AST 18 ALT 7 L Alkaline Phosphatase 56 Creatine Kinase 74 Troponin I < 0.02 B-Natriuretic Peptide 83249.6 H Total Protein 5.5 L Albumin 3.1 L Stool Occult Blood Negative 10/13/19 00:10 RBC 2.03 L MCV 87.1 MCHC 33.0 RDW 19.3 H MPV 9.2 Neutrophils % 87.4 H Lymphocytes % 2.9 L D Monocytes % 8.4 Eosinophils % 0.9 D Basophils % 0.4 D - RADIOLOGY Radiology Studies Ordered: Category Date Time Status CXRPORT [CHEST X-RAY PORTABLE*] [RAD] Stat Radiology 10/13/19 00:25 Taken - Medications Given in the ED: ED Medications Discontinued Medications Generic Name Dose Route Start Last Admin Trade Name Freq PRN Reason Stop Dose Admin Ondansetron HCl 4 mg 10/12/19 23:53 10/13/19 00:16 Zofran Injection IVPB 10/12/19 23:54 4 mg ONCE ONE Administration Medical Decision Making - Medical Decision Making 84 y/o male with history of HTN, CHF, DM, COPD, CAD s/p CABG (2008), recurrent PNA (on 2L home O2), afib on xeralto, Parkinson's disease, and prostate CA presents for nausea, vomiting, and SOB. Differential includes but not limited to ACS, CHF exacerbation, COPD exacerbation, Pneumonia, COVID, PE. Low/Moderate risk Well's score, but low suspicion since he's not tachycardic, baseline hypoxic, known hemoptysis and on Xeralto. Troponin negative. EKG demonstrated sinus bradycardia. CBC demonstrated anemia with Hgb at 5.8, was explained risks and benefits and provided consent for 1unit [place]BC[place] [address], and previous visit in 6000s. With his clinical presentation of 3+ pitting edema and rales at left lower lung, suggest Acute on Chronic HF exacerbation and started on 10mg IV lasix. CXR demonstrated patchy infiltrates bilaterally, suggesting PNA, and was started on levofloxacin 500mg IV. He will be admitted to inpatient services. Discharge - Discharge Information Problems reviewed: Yes Clinical Impression/Diagnosis: CHF (congestive heart failure) Qualifiers: Heart failure type: unspecified Heart failure chronicity: acute on chronic Qualified Code(s): I50.9 - Heart failure, unspecified Pneumonia Qualifiers: Pneumonia type: due to unspecified organism Laterality: unspecified laterality Lung location: unspecified part of lung Qualified Code(s): J18.9 - Pneumonia, unspecified organism Anemia Qualifiers: Anemia type: unspecified type Qualified Code(s): D64.9 - Anemia, unspecified Condition: Guarded - Admission Yes - Follow up/Referral - Patient Discharge Instructions - Post Discharge Activity
[2019-10-13 01:54] LABS: EPI CELLS 6 /uL (0-25.1); HYALINE CASTS 1 /uL (0-3.1); URINE APPEARANCE CLEAR; URINE BACTERIA 0 /uL (0-1359); URINE BILIRUBIN NEGATIVE (NEGATIVE); URINE COLOR YELLOW; URINE GLUCOSE (UA) 2+ (NEGATIVE); URINE KETONE NEGATIVE (NEGATIVE); URINE LEUK ESTERASE TRACE (NEGATIVE); URINE NITRITE NEGATIVE (NEGATIVE); URINE PROTEIN NEGATIVE (NEGATIVE); URINE RBC 5 /uL (0-23.9); URINE UROBILINOGEN 0.2 mg/dL (0.2-1.0); URINE WBC 0 /uL (0-25.8)
[2019-10-13] MEDS ORDERED: FUROSEMIDE 40 MG TABLET (FP) PO ONE (05:30)
[2019-10-13] MEDS ORDERED: ONDANSETRON 4 MG/2 ML VIAL IVPUSH ONE ×2 (05:30→23:12)
--- NOTE | 2019-10-13 05:30 | PN ---
Teaching Attending Note Name of Resident: Zachery Meyers ATTENDING PHYSICIAN STATEMENT I saw and evaluated the patient. I reviewed the resident's note and discussed the case with the resident. I agree with the resident's findings and plan as documented. SUBJECTIVE: This is an 84 year old man with a history of HTN, hyperlipidemia, CAD, CABG, CHF, atrial fib, chronic hypoxic respiratory failure, COPD, ILD, CKD, Parkinson disease who comes to the ED complaining of SOB, coughing up blood, nausea and vomiting, and worsening leg swelling. He had been admitted 09/24 for hemoptysis and COPD exacerbation. During the hospitalization, he had ANÍBAL and urinary retention requiring a Sandoval catheter which was removed prior to discharge. Lasix and Cozaar were held because of ANÍBAL. He was discharged on 09/30 on a prednisone taper. OBJECTIVE: Vital Signs Period Temp Pulse Resp BP Sys/Knutson Pulse Ox Last 24 Hr 97.8 F-97.8 F 51-52 18-21 123-145/39-51 100-100 HEART: S1S2, bradycardic LUNGS: Rales at both bases ABDOMEN: Soft, non-tender, non-distended, normal BS EXTREMITIES: 3+ edema Laboratory Tests 10/13/19 10/13/19 10/13/19 00:10 00:10 00:10 WBC 8.7 RBC 2.03 L Hgb 5.8 L* Hct 17.7 L D MCV 87.1 MCH 28.7 MCHC 33.0 RDW 19.3 H Plt Count 101 L MPV 9.2 Absolute Neuts (auto) 7.7 Neutrophils % 87.4 H Lymphocytes % 2.9 L D Monocytes % 8.4 Eosinophils % 0.9 D Basophils % 0.4 D Nucleated RBC % 0 PT with INR 25.10 H INR 2.11 H Sodium 141 Potassium 4.7 Chloride 106 Carbon Dioxide 32 Anion Gap 4 L BUN 83.6 H Creatinine 2.4 H Est GFR (CKD-EPI)AfAm 27.87 Est GFR (CKD-EPI)NonAf 24.04 Random Glucose 110 H Calcium 7.9 L Total Bilirubin 0.8 AST 18 ALT 7 L Alkaline Phosphatase 56 Creatine Kinase 74 Troponin I < 0.02 B-Natriuretic Peptide 83221.6 H Total Protein 5.5 L Albumin 3.1 L Urine Color Urine Appearance Urine pH Ur Specific [place] Urine Protein Urine Glucose (UA) Urine Ketones Urine Blood Urine Nitrite Urine Bilirubin Urine Urobilinogen Ur Leukocyte Esterase Urine WBC (Auto) Urine RBC (Auto) Urine Casts (Auto) U Epithel Cells (Auto) Urine Bacteria (Auto) Stool Occult Blood Blood Type Antibody Screen Crossmatch 10/13/19 10/13/19 10/13/19 00:50 01:03 01:27 WBC RBC Hgb Hct MCV MCH MCHC RDW Plt Count MPV Absolute Neuts (auto) Neutrophils % Lymphocytes % Monocytes % Eosinophils % Basophils % Nucleated RBC % PT with INR INR Sodium Potassium Chloride Carbon Dioxide Anion Gap BUN Creatinine Est GFR (CKD-EPI)AfAm Est GFR (CKD-EPI)NonAf Random Glucose Calcium Total Bilirubin AST ALT Alkaline Phosphatase Creatine Kinase Troponin I B-Natriuretic Peptide Total Protein Albumin Urine Color Yellow Urine Appearance Clear Urine pH 5.0 Ur Specific [place] 1.015 Urine Protein Negative Urine Glucose (UA) 2+ H Urine Ketones Negative Urine Blood Negative Urine Nitrite Negative Urine Bilirubin Negative Urine Urobilinogen 0.2 Ur Leukocyte Esterase Trace Urine WBC (Auto) 0 Urine RBC (Auto) 5 Urine Casts (Auto) 1 U Epithel Cells (Auto) 6 Urine Bacteria (Auto) 0 Stool Occult Blood Negative Blood Type O NEGATIVE Antibody Screen Negative Crossmatch See Detail Home Medications Medication Instructions Recorded Amlodipine Besylate 10 mg PO DAILY 09/25/19 Apixaban [Eliquis] 2.5 mg PO BID 09/25/19 Atorvastatin Ca [Lipitor] 80 mg PO HS 09/25/19 Carvedilol 25 mg PO BID 09/25/19 Empagliflozin [Jardiance] 25 mg PO DAILY 09/25/19 Ergocalciferol (Vitamin D2) 5,000 unit PO WEEKLY 09/25/19 [Vitamin D2] Glimepiride 1 mg PO DAILY 09/25/19 Hydralazine HCl 25 mg PO BID 09/25/19 Pantoprazole Sodium 40 mg PO DAILY 09/25/19 Ranolazine [Ranexa -] 500 mg PO BID 09/25/19 Budesonide/Formeterol Fumarate 1 inh PO BID 09/26/19 [SYMBICORT 160/4.5mcg -] Carbidopa/Levodopa [Carbidopa-Levo 1.5 each PO TID 09/26/19 ER 50-200 Tab] Ferrous Sulfate [Feosol] 325 mg PO BIDWM #60 ud 10/01/19 Prednisone 10 mg PO DAILY 7 Days #12 tablet 10/01/19 Silodosin [Rapaflo] 8 mg PO DAILY #30 capsule 10/01/19 ASSESSMENT AND PLAN: This is an 84 year old man with a history of HTN, hyperlipidemia, CAD, CABG, CHF, atrial fib, chronic hypoxic respiratory failure, COPD, ILD, CKD, Parkinson disease, recently hospitalized with COPD exacerbation, ANÍBAL, urinary retention who presented to the ED with SOB, continued hemoptysis, leg edema. 1. Acute on chronic CHF - Possibly diastolic - Lasix IV - Transfuse to Hgb>8.0 - Repeat CXR in AM - Echocardiogram - Monitor BUN, creatinine with diuresis 2. Stage 4 CKD - BUN, creatinine better compared to discharge - Monitor renal function with diuresis 3. Acute blood loss anemia on anemia of chronic illness - Possibly secondary to hemoptysis with component of dilution from fluid overload - Transfuse to Hgb>8.0 - Continue ferrous sulfate - Hold Eliquis
[2019-10-13] MEDS ORDERED: ALBUTEROL SO4 2.5/IPRATROPIUM 0.5 INH SOL 3 ML VIAL.NEB. NEB PRN (05:53)
--- NOTE | 2019-10-13 07:20 | HP ---
CHIEF COMPLAINT: 1 day of nausea, bloody vomiting, and shortness of breath PCP: HISTORY OF PRESENT ILLNESS: 84 year old male patient with past medical history of HTN, CHF, DM, COPD, CAD s/p CABG 2008, recurrent PNA (2 L home o2), a fib, parkinson's disease, prostate cancer, HLD, Gastric and Colon polyps, Asthma, Anemia, who presents to the ED with 1 day of nausea, bloody vomiting, and shortness of breath. The patient reports shortness of breath and lower extremity edema. The patient had previously been admitted on 09/24 for COPD exacerbation and hemoptysis. The patient denies fever/chills, chest pain, lighheadedness, headache, numbness, abdominal pain, diarrhea, constipation, and urinary symptoms. Recent Travel: PAST MEDICAL HISTORY: HTN, CHF, DM, COPD, CAD s/p CABG 2008, recurrent PNA (2 L home o2), a fib, parkinson's disease, prostate cancer, HLD, Gastric and Colon polyps, Asthma, Anemia PAST SURGICAL HISTORY: CABG 2008 Carotid endartectomy Social History: Smoking: Alcohol: Drugs: Allergies No Known Allergies Allergy (Verified 10/12/19 23:07) HOME MEDICATIONS: Home Medications Medication Instructions Recorded Amlodipine Besylate 10 mg PO DAILY 09/25/19 Apixaban [Eliquis] 2.5 mg PO BID 09/25/19 Atorvastatin Ca [Lipitor] 80 mg PO HS 09/25/19 Carvedilol 25 mg PO BID 09/25/19 Empagliflozin [Jardiance] 25 mg PO DAILY 09/25/19 Ergocalciferol (Vitamin D2) 5,000 unit PO WEEKLY 09/25/19 [Vitamin D2] Glimepiride 1 mg PO DAILY 09/25/19 Hydralazine HCl 25 mg PO BID 09/25/19 Pantoprazole Sodium 40 mg PO DAILY 09/25/19 Ranolazine [Ranexa -] 500 mg PO BID 09/25/19 Budesonide/Formeterol Fumarate 1 inh PO BID 09/26/19 [SYMBICORT 160/4.5mcg -] Carbidopa/Levodopa [Carbidopa-Levo 1.5 each PO TID 09/26/19 ER 50-200 Tab] Ferrous Sulfate [Feosol] 325 mg PO BIDWM #60 ud 10/01/19 Prednisone 10 mg PO DAILY 7 Days #12 tablet 10/01/19 Silodosin [Rapaflo] 8 mg PO DAILY #30 capsule 10/01/19 REVIEW OF SYSTEMS CONSTITUTIONAL: Absent: fever, chills CARDIOVASCULAR: peripheral edema Absent: chest pain, syncope, lightheadedness RESPIRATORY: shortness of breath, hemoptysis Absent: GASTROINTESTINAL: nausea, vomiting Absent: abdominal pain, diarrhea, constipation GENITOURINARY: Absent: dysuria NEUROLOGIC: Absent: numbness PHYSICAL EXAMINATION Vital Signs - 24 hr 10/12/19 10/13/19 10/13/19 22:58 02:42 03:30 Temperature 97.8 F 97.8 F Pulse Rate 52 L Pulse Rate [ 51 L Left Radial] Respiratory 18 21 H Rate Blood Pressure 123/51 L Blood Pressure 145/39 L [Right Arm] O2 Sat by Pulse 100 100 100 Oximetry (%) 10/13/19 10/13/19 10/13/19 04:54 05:09 05:30 Temperature 98.1 F 98 F 97.8 F Pulse Rate 55 L Pulse Rate [ 53 L 53 L Left Radial] Respiratory 24 H 19 20 Rate Blood Pressure 128/41 L Blood Pressure 137/40 L 142/45 L [Right Arm] O2 Sat by Pulse 97 97 Oximetry (%) GENERAL: Awake, alert, and fully oriented, in no acute distress. HEAD: Normal with no signs of trauma. EYES: Extraocular movements intact EARS, NOSE, THROAT: Ears normal, nares patent, oropharynx clear without exudates. Moist mucous membranes. NECK: Normal range of motion, supple without lymphadenopathy, JVD, or masses. LUNGS: Coarse breaths sounds throughout with mild crackles at the bases. HEART: Irregular rhythm on radial palpation, S1 and S2. ABDOMEN: Soft, nontender, distended, normoactive bowel sounds, no guarding, no rebound, no masses. MUSCULOSKELETAL: Normal range of motion at all joints. No bony deformities or tenderness. UPPER EXTREMITIES: 2+ pulses, warm, well-perfused. No cyanosis. No clubbing. LOWER EXTREMITIES: 2+ pulses, warm, well-perfused. No calf tenderness. 3+ pitting edema in legs NEUROLOGICAL: Normal speech. Normal gait. PSYCHIATRIC: Cooperative. Good eye contact. Appropriate mood and affect. Laboratory Results - last 24 hr 10/13/19 10/13/19 10/13/19 00:10 00:10 00:10 WBC 8.7 RBC 2.03 L Hgb 5.8 L* Hct 17.7 L D MCV 87.1 MCH 28.7 MCHC 33.0 RDW 19.3 H Plt Count 101 L MPV 9.2 Absolute Neuts (auto) 7.7 Neutrophils % 87.4 H Lymphocytes % 2.9 L D Monocytes % 8.4 Eosinophils % 0.9 D Basophils % 0.4 D Nucleated RBC % 0 PT with INR 25.10 H INR 2.11 H Sodium 141 Potassium 4.7 Chloride 106 Carbon Dioxide 32 Anion Gap 4 L BUN 83.6 H Creatinine 2.4 H Est GFR (CKD-EPI)AfAm 27.87 Est GFR (CKD-EPI)NonAf 24.04 Random Glucose 110 H Calcium 7.9 L Total Bilirubin 0.8 AST 18 ALT 7 L Alkaline Phosphatase 56 Creatine Kinase 74 Troponin I < 0.02 B-Natriuretic Peptide 31179.6 H Total Protein 5.5 L Albumin 3.1 L Urine Color Urine Appearance Urine pH Ur Specific [place] Urine Protein Urine Glucose (UA) Urine Ketones Urine Blood Urine Nitrite Urine Bilirubin Urine Urobilinogen Ur Leukocyte Esterase Urine WBC (Auto) Urine RBC (Auto) Urine Casts (Auto) U Epithel Cells (Auto) Urine Bacteria (Auto) Stool Occult Blood Blood Type Antibody Screen Crossmatch 10/13/19 10/13/19 10/13/19 00:50 01:03 01:27 WBC RBC Hgb Hct MCV MCH MCHC RDW Plt Count MPV Absolute Neuts (auto) Neutrophils % Lymphocytes % Monocytes % Eosinophils % Basophils % Nucleated RBC % PT with INR INR Sodium Potassium Chloride Carbon Dioxide Anion Gap BUN Creatinine Est GFR (CKD-EPI)AfAm Est GFR (CKD-EPI)NonAf Random Glucose Calcium Total Bilirubin AST ALT Alkaline Phosphatase Creatine Kinase Troponin I B-Natriuretic Peptide Total Protein Albumin Urine Color Yellow Urine Appearance Clear Urine pH 5.0 Ur Specific [place] 1.015 Urine Protein Negative Urine Glucose (UA) 2+ H Urine Ketones Negative Urine Blood Negative Urine Nitrite Negative Urine Bilirubin Negative Urine Urobilinogen 0.2 Ur Leukocyte Esterase Trace Urine WBC (Auto) 0 Urine RBC (Auto) 5 Urine Casts (Auto) 1 U Epithel Cells (Auto) 6 Urine Bacteria (Auto) 0 Stool Occult Blood Negative Blood Type O NEGATIVE Antibody Screen Negative Crossmatch See Detail ASSESSMENT/PLAN: 84 year old male patient with past medical history of HTN, CHF, DM, COPD, CAD s/p CABG 2008, recurrent PNA (2 L home o2), a fib, parkinson's disease, prostate cancer, HLD, Gastric and Colon polyps, Asthma, Anemia, who presents to the ED with 1 day of nausea, bloody vomiting, and shortness of breath. 1. CHF exacerbation - CXR shows possible fluid in lungs - lungs sound coarse - BNP > 10,000 - pitting edema bilaterally - ECHO - lasix and f/u repeat CXR - creatinine is 2.4 so monitor creatinine while using lasix - daily weighing 2. Anemia - monitor Hgb - transfuse if Hgb < 8 - iron supplements - hold eliquis 3. CKD stage 4 - monitor creatinine with the lasix use 4. DM - ISS 5. COPD - continue Duoneb, Symbicort #FEN - PO fluids with lasix and daily weighing, monitor lytes, Sodium controlled diet DVT Px - SCD Dispo - f/u repeat CXR, monitor Hgb, monitor creatinine, transfuse blood if Hgb < 8 Visit type - Emergency Visit Emergency Visit: Yes ED Registration Date: 10/13/19 Care time: The patient presented to the Emergency Department on the above date and was hospitalized for further evaluation of their emergent condition. - New Patient This patient is new to me today: Yes Date on this admission: 10/13/19 - Critical Care Critical Care patient: No ATTENDING PHYSICIAN STATEMENT I saw and evaluated the patient. I reviewed the resident's note and discussed the case with the resident. I agree with the resident's findings and plan as documented. SUBJECTIVE: OBJECTIVE: ASSESSMENT AND PLAN:
--- NOTE | 2019-10-13 07:23 | PN ---
Progress Note (short form) - Note Progress Note: PULMONARY CONSULTATION DICTATED 10/13/19 IMP DYSPNEA ACUTE ON CHRONIC CHF SYMPTOMATIC ANEMIA HEMOPTYSIS ILD COPD O2 DEPENDENT HTN HLD AFIB CAROTID STENOSIS CKD PLAN SUPPLEMENTAL O2 LASIX INHALED BRONCHODILATORS QUANTIFY HEMOPTYSIS ABX CULTURES MONITOR H+H,LYTES,RENAL FUNCTION NORMAL TRANSFUSION THRESHOLD DR SMITH Problem List - Problems (1) Hemoptysis Code(s): R04.2 - HEMOPTYSIS (2) Acute on chronic diastolic (congestive) heart failure Code(s): I50.33 - ACUTE ON CHRONIC DIASTOLIC (CONGESTIVE) HEART FAILURE (3) Anemia Code(s): D64.9 - ANEMIA, UNSPECIFIED Qualifiers: Anemia type: unspecified type Qualified Code(s): D64.9 - Anemia, unspecified (4) PAF (paroxysmal atrial fibrillation) Code(s): I48.0 - PAROXYSMAL ATRIAL FIBRILLATION (5) S/P CABG (coronary artery bypass graft) Code(s): Z95.1 - PRESENCE OF AORTOCORONARY BYPASS GRAFT (6) Pulmonary vascular congestion Code(s): R09.89 - OTH SYMPTOMS AND SIGNS INVOLVING THE CIRC AND RESP SYSTEMS (7) DM Diabetes mellitus Code(s): E11.9 - TYPE 2 DIABETES MELLITUS WITHOUT COMPLICATIONS (8) Emphysema lung Code(s): J43.9 - EMPHYSEMA, UNSPECIFIED (9) ILD (interstitial lung disease) Code(s): J84.9 - INTERSTITIAL PULMONARY DISEASE, UNSPECIFIED
[2019-10-13 08:12] VITALS: BMI 20.7
[2019-10-13] MEDS ORDERED: FUROSEMIDE 40 MG/4 ML INJECTABLE VIAL IVPUSH ONE (09:00)
[2019-10-13] MEDS: TAMSULOSIN HCL 0.4 MG CAP PO SCH (09:35)
[2019-10-13] MEDS: BUDESONIDE/FORMETEROL FUMARATE 160/4.5 mcg INHALER IH SCH ×2 (09:35→21:33)
[2019-10-13] MEDS ORDERED: FUROSEMIDE 40 MG/4 ML INJECTABLE VIAL IVPUSH SCH (10:00)
[2019-10-13] MEDS: hydrALAZINE HCL 25 MG TABLET (FP) PO SCH ×2 (11:22→21:33)
[2019-10-13] MEDS: CARVEDILOL 25 MG TABLET (FP) PO SCH ×2 (11:22→21:33)
[2019-10-13] MEDS: amLODIPine BESYLATE 10 MG TABLET (FP) PO SCH (11:22)
--- NOTE | 2019-10-13 11:35 | EKG ---
Test Reason : Blood Pressure : / mmHG Vent. Rate : 051 BPM Atrial Rate : 051 BPM P-R Int : 224 ms QRS Dur : 106 ms QT Int : 468 ms P-R-T Axes : 060 -34 126 degrees QTc Int : 431 ms SINUS BRADYCARDIA WITH 1ST DEGREE A-V BLOCK LEFT AXIS DEVIATION ABNORMAL ECG WHEN COMPARED WITH ECG OF 25-SEP-2019 09:46, INVERTED T WAVES HAVE REPLACED NONSPECIFIC T WAVE ABNORMALITY IN LATERAL LEADS Confirmed by PIHLIPP ORTEGA, ELE ([id number]) on 10/13/2019 11:35:11 AM Referred By: Confirmed By:ELE SEGAL MD
[2019-10-13] MEDS: INSULIN SLIDING SCALE (NOVOLOG) 1 VIAL SQ SCH ×3 (11:41→21:33)
[2019-10-13 11:45] LABS: HEMATOCRIT 20.7 % (35.4-49); MCH 28.7 pg (25.7-33.7); MCHC 32.6 g/dl (32.0-35.9); MEAN PLT VOLUME 9.4 fl (7.5-11.1); PLATELET COUNT 97 K/MM3 (134-434); RBC 2.36 M/mm3 (4.00-5.60); RDW 17.6 % (11.9-15.9); WHITE BLOOD COUNT 9.3 K/mm3 (4.0-10.0)
[2019-10-13 11:50] LABS: HEMOGLOBIN 6.8 GM/dL (11.7-16.9)
[2019-10-13 12:07] LABS: CALCIUM 8.1 mg/dL (8.5-10.1); CREATININE 2.3 mg/dL (0.55-1.3); MAGNESIUM 3.3 mg/dL (1.8-2.4); PHOSPHOROUS 3.6 mg/dL (2.5-4.9); POTASSIUM 4.8 mmol/L (3.5-5.1); TOT PROT 5.4 g/dl (6.4-8.2)
--- NOTE | 2019-10-13 12:15 | PN ---
Progress Note (short form) - Note Progress Note: SUBJECTIVE: This is an 84 year old man with a history of HTN, hyperlipidemia, CAD, CABG, CHF (diatolic) , Paroxysmal atrial fib, chronic hypoxic respiratory failure, COPD, ILD, CKD, Parkinson disease who comes to the ED complaining of SOB, coughing up blood, nausea and vomiting, and worsening leg swelling. He had been admitted 09/24 for hemoptysis and COPD exacerbation. During the hospitalization, he had ANÍBAL and urinary retention requiring a Sandoval catheter which was removed prior to discharge. Lasix and Cozaar were held because of ANÍBAL. He was discharged on 09/30 on a prednisone taper. Pt has started seeing ?blood in mouth, unable to eat and SOB. In ER :Found to have Hb 5.7, negative Trop, elevated BNP Seen by Dr Jaime in office 09/20/2019 PAST MEDICAL HISTORY: HTN, CHF, DM, COPD, CAD s/p CABG 2008, recurrent PNA (2 L home o2), a fib, p arkinson's disease, prostate cancer, HLD, Gastric and Colon polyps, Asthma, Anemia;GIB PAD: Bilateral iliac ,severe Rt SFA, severe Lt EIA,[employer] and SFA R>L ICA stenosis no plans for angio in future; Echo 05/24 Nl EF, grade II diastolic dysfunction Cath 2010 patent WEN>LAD, SVG>LPL, RI Orthostatic Hypotension Chest Pain Syndrome PAST SURGICAL HISTORY: CABG 2008 Carotid endartectomy: left Allergies No Known Allergies Allergy (Verified 10/12/19 23:07) HOME MEDICATIONS: Home Medications Medication Instructions Recorded Amlodipine Besylate 10 mg PO DAILY 09/25/19 Apixaban [Eliquis] 2.5 mg PO BID 09/25/19 Atorvastatin Ca [Lipitor] 80 mg PO HS 09/25/19 Carvedilol 25 mg PO BID 09/25/19 Empagliflozin [Jardiance] 25 mg PO DAILY 09/25/19 Ergocalciferol (Vitamin D2) 5,000 unit PO WEEKLY 09/25/19 [Vitamin D2] Glimepiride 1 mg PO DAILY 09/25/19 Hydralazine HCl 25 mg PO BID 09/25/19 Pantoprazole Sodium 40 mg PO DAILY 09/25/19 Ranolazine [Ranexa -] 500 mg PO BID 09/25/19 Budesonide/Formeterol Fumarate 1 inh PO BID 09/26/19 [SYMBICORT 160/4.5mcg -] Carbidopa/Levodopa [Carbidopa-Levo 1.5 each PO TID 09/26/19 ER 50-200 Tab] Ferrous Sulfate [Feosol] 325 mg PO BIDWM #60 ud 10/01/19 Prednisone 10 mg PO DAILY 7 Days #12 tablet 10/01/19 Silodosin [Rapaflo] 8 mg PO DAILY #30 capsule 10/01/19 REVIEW OF SYSTEMS Negative except above PHYSICAL EXAMINATION Vital Signs - 24 hr 10/12/19 10/13/19 10/13/19 22:58 02:42 03:30 Temperature 97.8 F 97.8 F Pulse Rate 52 L Pulse Rate [ 51 L Left Radial] Respiratory 18 21 H Rate Blood Pressure 123/51 L Blood Pressure 145/39 L [Right Arm] O2 Sat by Pulse 100 100 100 Oximetry (%) 10/13/19 10/13/19 10/13/19 04:54 05:09 05:30 Temperature 98.1 F 98 F 97.8 F Pulse Rate 55 L Pulse Rate [ 53 L 53 L Left Radial] Respiratory 24 H 19 20 Rate Blood Pressure 128/41 L Blood Pressure 137/40 L 142/45 L [Right Arm] O2 Sat by Pulse 97 97 Oximetry (%) GENERAL: Awake, alert, and fully oriented, in no acute distress. Anicteric sclerae NECK: no JVP. LUNGS: Tympanic, decreased,no rales. HEART: Regular rhythm ,S1S2,no M/Cl/R ABDOMEN: Soft, nontender, distended, UPPER EXTREMITIES: 2+ pulses, warm, well-perfused. No cyanosis. No clubbing. LOWER EXTREMITIES: 2+ pulses, warm, well-perfused. No calf tenderness. 1+ pitting edema in legs Laboratory Tests 10/13/19 10/13/19 10/13/19 00:10 00:10 00:10 WBC 8.7 RBC 2.03 L Hgb 5.8 L* Hct 17.7 L D MCV 87.1 MCH 28.7 MCHC 33.0 RDW 19.3 H Plt Count 101 L MPV 9.2 Absolute Neuts (auto) 7.7 Neutrophils % 87.4 H Lymphocytes % 2.9 L D Monocytes % 8.4 Eosinophils % 0.9 D Basophils % 0.4 D Nucleated RBC % 0 PT with INR 25.10 H INR 2.11 H Sodium 141 Potassium 4.7 Chloride 106 Carbon Dioxide 32 Anion Gap 4 L BUN 83.6 H Creatinine 2.4 H Est GFR (CKD-EPI)AfAm 27.87 Est GFR (CKD-EPI)NonAf 24.04 Random Glucose 110 H Calcium 7.9 L Total Bilirubin 0.8 AST 18 ALT 7 L Alkaline Phosphatase 56 Creatine Kinase 74 Troponin I < 0.02 B-Natriuretic Peptide 30375.6 H Total Protein 5.5 L Albumin 3.1 L Urine Color Urine Appearance Urine pH Ur Specific [place] Urine Protein Urine Glucose (UA) Urine Ketones Urine Blood Urine Nitrite Urine Bilirubin Urine Urobilinogen Ur Leukocyte Esterase Urine WBC (Auto) Urine RBC (Auto) Urine Casts (Auto) U Epithel Cells (Auto) Urine Bacteria (Auto) Stool Occult Blood Blood Type Antibody Screen Crossmatch 10/13/19 10/13/19 10/13/19 00:50 01:03 01:27 WBC RBC Hgb Hct MCV MCH MCHC RDW Plt Count MPV Absolute Neuts (auto) Neutrophils % Lymphocytes % Monocytes % Eosinophils % Basophils % Nucleated RBC % PT with INR INR Sodium Potassium Chloride Carbon Dioxide Anion Gap BUN Creatinine Est GFR (CKD-EPI)AfAm Est GFR (CKD-EPI)NonAf Random Glucose Calcium Total Bilirubin AST ALT Alkaline Phosphatase Creatine Kinase Troponin I B-Natriuretic Peptide Total Protein Albumin Urine Color Yellow Urine Appearance Clear Urine pH 5.0 Ur Specific [place] 1.015 Urine Protein Negative Urine Glucose (UA) 2+ H Urine Ketones Negative Urine Blood Negative Urine Nitrite Negative Urine Bilirubin Negative Urine Urobilinogen 0.2 Ur Leukocyte Esterase Trace Urine WBC (Auto) 0 Urine RBC (Auto) 5 Urine Casts (Auto) 1 U Epithel Cells (Auto) 6 Urine Bacteria (Auto) 0 Stool Occult Blood Negative Blood Type O NEGATIVE Antibody Screen Negative Crossmatch See Detail Home Medications Medication Instructions Recorded Amlodipine Besylate 10 mg PO DAILY 09/25/19 Apixaban [Eliquis] 2.5 mg PO BID 09/25/19 Atorvastatin Ca [Lipitor] 80 mg PO HS 09/25/19 Carvedilol 25 mg PO BID 09/25/19 Empagliflozin [Jardiance] 25 mg PO DAILY 09/25/19 Ergocalciferol (Vitamin D2) 5,000 unit PO WEEKLY 09/25/19 [Vitamin D2] Glimepiride 1 mg PO DAILY 09/25/19 Hydralazine HCl 25 mg PO BID 09/25/19 Pantoprazole Sodium 40 mg PO DAILY 09/25/19 Ranolazine [Ranexa -] 500 mg PO BID 09/25/19 Budesonide/Formeterol Fumarate 1 inh PO BID 09/26/19 [SYMBICORT 160/4.5mcg -] Carbidopa/Levodopa [Carbidopa-Levo 1.5 each PO TID 09/26/19 ER 50-200 Tab] Ferrous Sulfate [Feosol] 325 mg PO BIDWM #60 ud 10/01/19 Prednisone 10 mg PO DAILY 7 Days #12 tablet 10/01/19 Silodosin [Rapaflo] 8 mg PO DAILY #30 capsule 10/01/19 Active Medications Albuterol/Ipratropium (Duoneb -) 1 amp NEB Q6H PRN PRN Reason: SHORTNESS OF BREATH Amlodipine Besylate (Norvasc -) 10 mg PO DAILY [facility] Last Admin: 10/13/19 11:22 Dose: 10 mg Documented by: Atorvastatin Calcium (Lipitor -) 80 mg PO [facility] Budesonide/Formoterol Fumarate (Symbicort 160/4.5mcg -) 1 puff IH BID [facility] Last Admin: 10/13/19 09:35 Dose: 1 puff Documented by: Carbidopa/Levodopa (Sinemet *Cr* 50/200 -) 1.5 combo PO TID [facility] Last Admin: 10/13/19 07:29 Dose: 1.5 combo Documented by: Carvedilol (Coreg -) 25 mg PO BID [facility] Last Admin: 10/13/19 11:22 Dose: 25 mg Documented by: Hydralazine HCl (Apresoline -) 25 mg PO BID [facility] Last Admin: 10/13/19 11:22 Dose: 25 mg Documented by: Insulin Aspart (Novolog Vial Sliding Scale -) 1 vial SQ ACHS [facility]; Protocol Last Admin: 10/13/19 11:41 Dose: Not Given Documented by: Tamsulosin HCl (Flomax -) 0.4 mg PO DAILY@0830 [facility] Last Admin: 10/13/19 09:35 Dose: 0.4 mg Documented by: ASSESSMENT AND PLAN: This is an 84 year old man with a history of HTN, hyperlipidemia, CAD, CABG, CHF, atrial fib, chronic hypoxic respiratory failure, COPD, ILD, CKD, Parkinson disease, recently hospitalized with COPD exacerbation, ANÍBAL, urinary retention who presented to the ED with SOB, continued hemoptysis, leg edema. -Anemia: severe -DHF: Acute on chronic -CAD,CABG 2008, patent graft 2010, negative Trop despite severe anemia -PAD: Carotid and LE; s/p Lt CEA -COPD, Recent Hemoptysis -PAFb -GIB/Gastric Cancer? /polyps -Parkinsonism Plan: -BT keep Hb>8; investigate the source: GI? -IV Lasix after EACH BT then PRN : monitor renal function -No Anticoagulation, now or future; High bleeding risk; possible NELY closure to be consider in future -Cont other cardiac meds
--- NOTE | 2019-10-13 13:18 | PN ---
Physical Exam: SUBJECTIVE: Patient seen and examined at bedside. pt is feeling short of breath with a cough. OBJECTIVE: Vital Signs Period Temp Pulse Resp BP Sys/Knutson Pulse Ox Last 24 Hr 97.8 F-98.5 F 51-58 18-24 123-148/39-51 95-100 GENERAL: The patient is awake, alert, and fully oriented, in no acute distress. HEAD: Normal with no signs of trauma. NECK: Trachea midline, full range of motion, supple. LUNGS: dyspnea HEART: irregular rate and rhythm, S1, S2 without murmur ABDOMEN: Soft, nontender, nondistended, normoactive bowel sounds, no guarding, no rebound EXTREMITIES: 3+ LE edema NEUROLOGICAL: Cranial nerves II through XII grossly intact. Normal speech PSYCH: Normal mood, normal affect. RECTAL done by Dr. Escalona: no stool in vault, good sphincter tone, no external hemorrhoids noted, no internal hemorrhoids felt, no blood on tip of glove, no active bleeding noted. FOBT negative. Laboratory Last Values WBC 9.3 K/mm3 (4.0-10.0) 10/13/19 10:35 RBC 2.36 M/mm3 (4.00-5.60) L 10/13/19 10:35 Hgb 6.8 GM/dL (11.7-16.9) L* 10/13/19 10:35 Hct 20.7 % (35.4-49) L D 10/13/19 10:35 MCV 88.0 fl (80-96) 10/13/19 10:35 MCH 28.7 pg (25.7-33.7) 10/13/19 10:35 MCHC 32.6 g/dl (32.0-35.9) 10/13/19 10:35 RDW 17.6 % (11.9-15.9) H 10/13/19 10:35 Plt Count 97 K/MM3 (134-434) L 10/13/19 10:35 MPV 9.4 fl (7.5-11.1) 10/13/19 10:35 Absolute Neuts (auto) 7.7 K/mm3 (1.5-8.0) 10/13/19 00:10 Neutrophils % 87.4 % (42.8-82.8) H 10/13/19 00:10 Lymphocytes % 2.9 % (8-40) L D 10/13/19 00:10 Monocytes % 8.4 % (3.8-10.2) 10/13/19 00:10 Eosinophils % 0.9 % (0-4.5) D 10/13/19 00:10 Basophils % 0.4 % (0-2.0) D 10/13/19 00:10 Nucleated RBC % 0 % (0-0) 10/13/19 00:10 PT with INR 25.10 SEC (9.7-13.0) H 10/13/19 00:10 INR 2.11 (0.83-1.09) H 10/13/19 00:10 Sodium 145 mmol/L (136-145) 10/13/19 10:35 Potassium 4.8 mmol/L (3.5-5.1) 10/13/19 10:35 Chloride 109 mmol/L (98-107) H 10/13/19 10:35 Carbon Dioxide 31 mmol/L (21-32) 10/13/19 10:35 Anion Gap 6 MMOL/L (8-16) L 10/13/19 10:35 BUN 85.0 mg/dL (7-18) H 10/13/19 10:35 Creatinine 2.3 mg/dL (0.55-1.3) H 10/13/19 10:35 Est GFR (CKD-EPI)AfAm 29.34 10/13/19 10:35 Est GFR (CKD-EPI)NonAf 25.31 10/13/19 10:35 POC Glucometer 78 UNITS (80-120) 10/13/19 11:27 Random Glucose 81 mg/dL (74-106) 10/13/19 10:35 Calcium 8.1 mg/dL (8.5-10.1) L 10/13/19 10:35 Phosphorus 3.6 mg/dL (2.5-4.9) 10/13/19 10:35 Magnesium 3.3 mg/dL (1.8-2.4) H 10/13/19 10:35 Total Bilirubin 1.0 mg/dL (0.2-1) 10/13/19 10:35 AST 20 U/L (15-37) 10/13/19 10:35 ALT 8 U/L (13-61) L 10/13/19 10:35 Alkaline Phosphatase 50 U/L (45-117) 10/13/19 10:35 Creatine Kinase 74 U/L (26-308) 10/13/19 00:10 Troponin I < 0.02 ng/ml (0.00-0.05) 10/13/19 00:10 B-Natriuretic Peptide 35516.6 pg/ml (5-450) H 10/13/19 00:10 Total Protein 5.4 g/dl (6.4-8.2) L 10/13/19 10:35 Albumin 3.0 g/dl (3.4-5.0) L 10/13/19 10:35 Urine Color Yellow 10/13/19 01:03 Urine Appearance Clear 10/13/19 01:03 Urine pH 5.0 (5.0-8.0) 10/13/19 01:03 Ur Specific [place] 1.015 (1.010-1.035) 10/13/19 01:03 Urine Protein Negative (NEGATIVE) 10/13/19 01:03 Urine Glucose (UA) 2+ (NEGATIVE) H 10/13/19 01:03 Urine Ketones Negative (NEGATIVE) 10/13/19 01:03 Urine Blood Negative (NEGATIVE) 10/13/19 01:03 Urine Nitrite Negative (NEGATIVE) 10/13/19 01:03 Urine Bilirubin Negative (NEGATIVE) 10/13/19 01:03 Urine Urobilinogen 0.2 mg/dL (0.2-1.0) 10/13/19 01:03 Ur Leukocyte Esterase Trace (NEGATIVE) 10/13/19 01:03 Urine WBC (Auto) 0 /uL (0-25.8) 10/13/19 01:03 Urine RBC (Auto) 5 /uL (0-23.9) 10/13/19 01:03 Urine Casts (Auto) 1 /uL (0-3.1) 10/13/19 01:03 U Epithel Cells (Auto) 6 /uL (0-25.1) 10/13/19 01:03 Urine Bacteria (Auto) 0 /uL (0-1359) 10/13/19 01:03 Stool Occult Blood Negative (NEGATIVE) 10/13/19 01:27 Blood Type O NEGATIVE 10/13/19 00:50 Antibody Screen Negative 10/13/19 00:50 Crossmatch See Detail 10/13/19 00:50 Active Medications Generic Name Dose Route Start Last Admin Trade Name Frekatty PRN Reason Stop Dose Admin Albuterol/Ipratropium 1 amp 10/13/19 05:53 Duoneb - NEB Q6H PRN SHORTNESS OF BREATH Amlodipine Besylate 10 mg 10/13/19 10:30 10/13/19 11:22 Norvasc - PO 10 mg DAILY RANJAN Administration Atorvastatin Calcium 80 mg 10/13/19 22:00 Lipitor - PO HS RANJAN Budesonide/Formoterol Fumarate 1 puff 10/13/19 10:00 10/13/19 09:35 Symbicort 160/4.5mcg - IH 1 puff BID RANJAN Administration Carbidopa/Levodopa 1.5 combo 10/13/19 06:00 10/13/19 07:29 Sinemet *Cr* 50/200 - PO 1.5 combo TID RANJAN Administration Carvedilol 25 mg 10/13/19 10:30 10/13/19 11:22 Coreg - PO 25 mg BID RANJAN Administration Hydralazine HCl 25 mg 10/13/19 10:30 10/13/19 11:22 Apresoline - PO 25 mg BID RANJAN Administration Insulin Aspart 1 vial 10/13/19 11:00 10/13/19 11:41 Novolog Vial Sliding Scale - SQ Not Given ACHS [facility] Protocol Tamsulosin HCl 0.4 mg 10/13/19 08:30 10/13/19 09:35 Flomax - PO 0.4 mg DAILY@0830 RANJAN Administration ASSESSMENT/PLAN: 84 yo M PMH HTN, HLD, CAD, CABG, CHF, Afib(eliquis), chronic hypoxic respiratory failure, COPD, ILD, CKD, Parkinson disease, recently hospitalized with COPD exacerbation in September, ANÍBAL, urinary retention who presented to the ED with SOB, hemoptysis, leg edema. Acute respiratory distress likely 2/2 Acute on chronic HF - pending Echo, CXR reviewed and appears to be overloaded. will rpt CXR in am - cont IV lasix bid - cont coreg -pending CT chest - I/Os , daily weights CKD - cont to monitor - cont IV Lasix BID - cont yanes, flomax Anemia -will check iron studies, FOBT negative . getting 2nd unit now to maintain Hgb >8 -May require TRISTAN give CKD and anemia - cont iron - hold eliquis Afib - no AC since risk of bleeding > benefits - cardio recs appreciated DM - c/w ISS and BGM HTN - norvasc, coreg, hydralazine HLOC ATTENDING PHYSICIAN STATEMENT I saw and evaluated the patient. I reviewed the resident's note and discussed the case with the resident. I agree with the resident's findings and plan as documented. SUBJECTIVE: OBJECTIVE: ASSESSMENT AND PLAN:
--- NOTE | 2019-10-13 13:20 | PN ---
Teaching Attending Note Name of Resident: Octavia Hoffmann ATTENDING PHYSICIAN STATEMENT I saw and evaluated the patient. I reviewed the resident's note and discussed the case with the resident. I agree with the resident's findings and plan as documented. SUBJECTIVE: no fever or chills. He denies fever at home . few days of small amount of h emoptysis, just streaks on tissue. cough . No PC . worsening LE edema. he states that LE edema is what brought him here compliant with meds. not on diuretics at home uses 2 L of O2 at home denies hematochezia, melena opr hematomesis OBJECTIVE: NAD,awake, alert, MMM, no facial droop CV: RRR, no MRG Lungs: scattered wheezing ABd: soft, NT, Nd , NL Bs . Ext: 2+ edema on legs and feet . ASSESSMENT AND PLAN: 84 y/o man with h/o hypertension, HLD, CKD, CAD sp CABG x 2 vessels, carotid stenosis, CHF, Afib, Parkinson disease, prostate cancer on radiation therapy, COPD on 2 liters NC at home, possible ILD , recurrent pneumonias who presented with LE edema and hemoptysis and was found to have acute CHF 1- Acute on chronic diastolic CHF exacerbation. No signs of PNA. No signs of COPD exa. - cont lasix BID - last echo in 2014 reviewed. will repeat - consult Dr. Jaime - cont coreg - Ct ordered by pulm 2- Hemoptysis: suspect due to airway irritation from cough , and also pulm edema. - monitor - hold eliquis for now 3- Acute on chronic anemia. Hb has been in 6-7 range. now below his base line - suspect worsening anemia form renal disease, and also due to the hemoptysis. - he denies GI bleed . OB neg - Resident to perform rectal exam - Received a unit , Hb 6.8-->transfuse a second unit and recheck HB . 4- HTN: resume Norvasc , coreg, and HZN . 5- DM : SSI 6- Recent hx of urinary retention : saw uro as out pt 2 days ago. yanes placed yesterday for I&O 7- HLOC
--- NOTE | 2019-10-13 14:01 | CON.NEP ---
Consult Consult Specialty:: Nephrology Referred by:: Medicine Reason for Consultation:: CKD - History of Present Illness Chief Complaint: Shortness of breath History of Present Illness: This is a 84 year old male with history of CKD, hypertension, CHF, COPD, CAD s/p CABG, prostate cancer, asthma on home O2 who presented from home with shortness of breath and leg swelling and admitted for CHF with Cr of 2.4. Seen and examined at the bedside. He is awake and alert. He reports sob is improved. Had coughed up some blood earlier. No chest pain, fever, chills. No N/V/D. Making urine. Leg are swollen. - History Source History Provided By: Patient Limitations to Obtaining History: No Limitations - Past Medical History Cardio/Vascular: Yes: AFIB, CAD, HTN Pulmonary: Yes: Bronchitis, COPD, O2 Dependent, Pneumonia. No: Asthma, Cancer, Previously Intubated, Pulmonary Embolus, Pulmonary Fibrosis, Sleep Apnea Renal/: Yes: Renal Inusuff Endocrine: Yes: Diabetes Mellitus - Past Surgical History Past Surgical History: Yes: CABG - Alcohol/Substance Use Hx Alcohol Use: No - Smoking History Smoking history: Never smoked Have you smoked in the past 12 months: No Aproximately how many cigarettes per day: 0 If you are a former smoker, when did you quit?: 1986 Home Medications - Allergies Allergies/Adverse Reactions: Allergies Allergy/AdvReac Type Severity Reaction Status Date / Time No Known Allergies Allergy Verified 10/12/19 23:07 - Home Medications Home Medications: Ambulatory Orders Amlodipine Besylate 10 mg PO DAILY 09/25/19 Apixaban [Eliquis] 2.5 mg PO BID 09/25/19 Atorvastatin Ca [Lipitor] 80 mg PO HS 09/25/19 Carvedilol 25 mg PO BID 09/25/19 Empagliflozin [Jardiance] 25 mg PO DAILY 09/25/19 Ergocalciferol (Vitamin D2) [Vitamin D2] 5,000 unit PO WEEKLY 09/25/19 Glimepiride 1 mg PO DAILY 09/25/19 Hydralazine HCl 25 mg PO BID 09/25/19 Pantoprazole Sodium 40 mg PO DAILY 09/25/19 Ranolazine [Ranexa -] 500 mg PO BID 09/25/19 Budesonide/Formeterol Fumarate [SYMBICORT 160/4.5mcg -] 1 inh PO BID 09/26/19 Carbidopa/Levodopa [Carbidopa-Levo ER 50-200 Tab] 1.5 each PO TID 09/26/19 Ferrous Sulfate [Feosol] 325 mg PO BIDWM #60 ud 10/01/19 Prednisone 10 mg PO DAILY 7 Days #12 tablet 10/01/19 Silodosin [Rapaflo] 8 mg PO DAILY #30 capsule 10/01/19 Family Medical History Family History: Unremarkable Review of Systems - Review of Systems Constitutional: reports: Weakness Eyes: reports: No Symptoms HENT: reports: No Symptoms Neck: reports: No Symptoms Cardiovascular: reports: Edema, Shortness of Breath Respiratory: reports: Cough, Hemoptysis, SOB Gastrointestinal: reports: No Symptoms Genitourinary: reports: Other (urinary hesitancy) Nephrology Consult - Height Height: 5 ft 5 in - Weight Weight: 56.699 kg - BMI Body Mass Index (BMI): 20.7 - Lab Results CBC,BMP: CBC, BMP 10/13/19 10:35 10/13/19 10:35 Anion Gap: Anion Gap Anion Gap 6 MMOL/L (8-16) L 10/13/19 10:35 - Imaging Cat Scan: Report Reviewed - Physical Examination Vital Signs: Vital Signs Temperature 98.5 F 10/13/19 07:55 Pulse Rate 58 L 10/13/19 07:55 Respiratory Rate 22 H 10/13/19 07:55 Blood Pressure 148/49 L 10/13/19 07:55 O2 Sat by Pulse Oximetry (%) 95 10/13/19 08:14 Constitutional: Yes: No Distress, Calm Eyes: Yes: Conjunctiva Clear HENT: Yes: Atraumatic Neck: Yes: Supple Cardiovascular: Yes: Regular Rate and Rhythm Respiratory: Yes: Diminished, On Nasal O2. No: Rales, Wheezes Gastrointestinal: Yes: Soft Renal/: Yes: Yanes Present. No: Bladder Distention Extremities: No: Cyanosis Edema: Yes Assessment/Plan 84 year old male with history of CKD, hypertension, CHF, COPD, CAD s/p CABG, prostate cancer, asthma on home O2 who presented from home with shortness of breath and leg swelling and admitted for CHF with Cr of 2.4. 1. CKD 2. CHF 3. Acute on chronic anemia 4. CAD s/p CA?BG 5. Hypertension 6. Urinary retention now with yanes Renal function stable since admission. There are no overt electrolyte or acid/base disturbances noted. Continue IV Lasix BID for edema management. Transfuse PRBC as per primary team Check iron studies May require TRISTAN give CKD and amemia maintain yanes, on flomax. Trial of void later this admission Urology follow up as an outpatient Thank you Virgilio De Oliveira DO
[2019-10-13] MEDS: FUROSEMIDE 40 MG/4 ML INJECTABLE VIAL IVPUSH SCH (16:29)
[2019-10-13] MEDS: ATORVASTATIN CA 80 MG TABLET (FP) PO SCH (21:33)
[2019-10-13] MEDS: RANOLAZINE E.R. 500 MG TABLET (FP) PO SCH (22:07)
[2019-10-14] MEDS ORDERED: MELATONIN 5 MG TABLETS PO ONE (00:35)
[2019-10-14] MEDS: FUROSEMIDE 40 MG/4 ML INJECTABLE VIAL IVPUSH SCH ×2 (05:44→13:32)
[2019-10-14] MEDS ORDERED: FUROSEMIDE 40 MG/4 ML INJECTABLE VIAL IVPUSH SCH (06:00)
[2019-10-14] MEDS: INSULIN SLIDING SCALE (NOVOLOG) 1 VIAL SQ SCH ×4 (06:17→21:26)
--- NOTE | 2019-10-14 07:47 | PN ---
Progress Note, Physician History of Present Illness: PULMONARY ALERT,COMFORTABLE ,HEMOPTYSIS IMPROVING ( DARK HEME) - Current Medication List Current Medications: Active Medications Albuterol/Ipratropium (Duoneb -) 1 amp NEB Q6H PRN PRN Reason: SHORTNESS OF BREATH Amlodipine Besylate (Norvasc -) 10 mg PO DAILY [facility] Last Admin: 10/13/19 11:22 Dose: 10 mg Documented by: Atorvastatin Calcium (Lipitor -) 80 mg PO HS [facility] Last Admin: 10/13/19 21:33 Dose: 80 mg Documented by: Budesonide/Formoterol Fumarate (Symbicort 160/4.5mcg -) 1 puff IH BID [facility] Last Admin: 10/13/19 21:33 Dose: 1 puff Documented by: Carbidopa/Levodopa (Sinemet *Cr* 50/200 -) 1.5 combo PO TID [facility] Last Admin: 10/14/19 05:43 Dose: 1.5 combo Documented by: Carvedilol (Coreg -) 25 mg PO BID [facility] Last Admin: 10/13/19 21:33 Dose: 25 mg Documented by: Furosemide (Lasix Injection -) 40 mg IVPUSH BID@0600,1400 [facility] Last Admin: 10/14/19 05:44 Dose: 40 mg Documented by: Hydralazine HCl (Apresoline -) 25 mg PO BID [facility] Last Admin: 10/13/19 21:33 Dose: 25 mg Documented by: Insulin Aspart (Novolog Vial Sliding Scale -) 1 vial SQ [facility]; Protocol Last Admin: 10/14/19 06:17 Dose: Not Given Documented by: Non-Formulary Medication (Ergocalciferol (Vitamin D2) [Vitamin D2]) 5,000 unit PO Tu@1000 [facility] Pantoprazole Sodium (Protonix -) 40 mg PO DAILY [facility] Ranolazine (Ranexa -) 500 mg PO BID [facility] Last Admin: 10/13/19 22:07 Dose: 500 mg Documented by: Tamsulosin HCl (Flomax -) 0.4 mg PO DAILY@0830 [facility] Last Admin: 10/13/19 09:35 Dose: 0.4 mg Documented by: - Objective Vital Signs: Vital Signs Temperature 98.0 F 10/14/19 05:52 Pulse Rate 60 10/14/19 05:52 Respiratory Rate 20 10/14/19 05:52 Blood Pressure 132/42 L 10/14/19 05:52 O2 Sat by Pulse Oximetry (%) 99 10/13/19 21:00 Constitutional: Yes: Well Nourished, Calm Eyes: Yes: WNL HENT: Yes: WNL Neck: Yes: WNL Cardiovascular: Yes: Pulse Irregular, S1, S2 Respiratory: Yes: Rales (BIBASILAR RALES) Gastrointestinal: Yes: Normal Bowel Sounds, Soft Extremities: Yes: WNL Edema: No Labs: INR, PTT INR 2.11 (0.83-1.09) H 10/13/19 00:10 Problem List - Problems (1) Hemoptysis Code(s): R04.2 - HEMOPTYSIS (2) Acute on chronic diastolic (congestive) heart failure Code(s): I50.33 - ACUTE ON CHRONIC DIASTOLIC (CONGESTIVE) HEART FAILURE (3) Anemia Code(s): D64.9 - ANEMIA, UNSPECIFIED Qualifiers: Anemia type: unspecified type Qualified Code(s): D64.9 - Anemia, unspecified (4) PAF (paroxysmal atrial fibrillation) Code(s): I48.0 - PAROXYSMAL ATRIAL FIBRILLATION (5) S/P CABG (coronary artery bypass graft) Code(s): Z95.1 - PRESENCE OF AORTOCORONARY BYPASS GRAFT (6) Pulmonary vascular congestion Code(s): R09.89 - OTH SYMPTOMS AND SIGNS INVOLVING THE CIRC AND RESP SYSTEMS (7) DM Diabetes mellitus Code(s): E11.9 - TYPE 2 DIABETES MELLITUS WITHOUT COMPLICATIONS (8) Emphysema lung Code(s): J43.9 - EMPHYSEMA, UNSPECIFIED (9) ILD (interstitial lung disease) Code(s): J84.9 - INTERSTITIAL PULMONARY DISEASE, UNSPECIFIED Assessment/Plan MP DYSPNEA ACUTE ON CHRONIC CHF SYMPTOMATIC ANEMIA HEMOPTYSIS LIKELY SECONDARY TO CHF IMPROVING ILD COPD O2 DEPENDENT HTN HLD AFIB CAROTID STENOSIS CKD PLAN SUPPLEMENTAL O2 LASIX INHALED BRONCHODILATORS QUANTIFY HEMOPTYSIS ABX CULTURES MONITOR H+H,LYTES,RENAL FUNCTION NORMAL TRANSFUSION THRESHOLD DR SMITH Problem List - Problems (1) Hemoptysis Code(s): R04.2 - HEMOPTYSIS (2) Acute on chronic diastolic (congestive) heart failure Code(s): I50.33 - ACUTE ON CHRONIC DIASTOLIC (CONGESTIVE) HEART FAILURE (3) Anemia Code(s): D64.9 - ANEMIA, UNSPECIFIED Qualifiers: Anemia type: unspecified type Qualified Code(s): D64.9 - Anemia, unspecified (4) PAF (paroxysmal atrial fibrillation) Code(s): I48.0 - PAROXYSMAL ATRIAL FIBRILLATION (5) S/P CABG (coronary artery bypass graft) Code(s): Z95.1 - PRESENCE OF AORTOCORONARY BYPASS GRAFT (6) Pulmonary vascular congestion Code(s): R09.89 - OTH SYMPTOMS AND SIGNS INVOLVING THE CIRC AND RESP SYSTEMS (7) DM Diabetes mellitus Code(s): E11.9 - TYPE 2 DIABETES MELLITUS WITHOUT COMPLICATIONS (8) Emphysema lung Code(s): J43.9 - EMPHYSEMA, UNSPECIFIED (9) ILD (interstitial lung disease) Code(s): J84.9 - INTERSTITIAL PULMONARY DISEASE, UNSPECIFIED
[2019-10-14] MEDS: TAMSULOSIN HCL 0.4 MG CAP PO SCH (07:50)
[2019-10-14 07:53] LABS: HEMOGLOBIN 7.6 GM/dL (11.7-16.9); MCH 28.9 pg (25.7-33.7); MCHC 33.2 g/dl (32.0-35.9); MEAN PLT VOLUME 9.1 fl (7.5-11.1); PLATELET COUNT 86 K/MM3 (134-434); RBC 2.64 M/mm3 (4.00-5.60); RDW 17.7 % (11.9-15.9); WHITE BLOOD COUNT 7.6 K/mm3 (4.0-10.0)
[2019-10-14 08:12] LABS: BILIRUBIN,TOTAL 0.8 mg/dL (0.2-1); BLOOD UREA NITROGEN 75.2 mg/dL (7-18); CALCIUM 8.1 mg/dL (8.5-10.1); CREATININE 2.5 mg/dL (0.55-1.3); MAGNESIUM 3.2 mg/dL (1.8-2.4); PHOSPHOROUS 3.8 mg/dL (2.5-4.9); POTASSIUM 4.3 mmol/L (3.5-5.1); TOT PROT 5.4 g/dl (6.4-8.2)
--- NOTE | 2019-10-14 09:06 | PN ---
Progress Note (short form) - Note Progress Note: SUBJECTIVE: This is an 84 year old man with a history of HTN, hyperlipidemia, CAD, CABG, CHF (diatolic) , Paroxysmal atrial fib, chronic hypoxic respiratory failure, COPD, ILD, CKD, Parkinson disease who comes to the ED complaining of SOB, coughing up blood, nausea and vomiting, and worsening leg swelling. He had been admitted 09/24 for hemoptysis and COPD exacerbation. During the hospitalization, he had ANÍBAL and urinary retention requiring a Sandoval catheter which was removed prior to discharge. Lasix and Cozaar were held because of ANÍBAL. He was discharged on 09/30 on a prednisone taper. Pt has started seeing ?blood in mouth, unable to eat and SOB. 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 LUNGS: Tympanic, decreased,no rales. HEART: Regular rhythm ,S1S2,no M/Cl/R ABDOMEN: Soft, nontender, distended, UPPER EXTREMITIES: 2+ pulses, warm, well-perfused. No cyanosis. No clubbing. LOWER EXTREMITIES: 2+ pulses, warm, well-perfused. No calf tenderness. trace 1+ pitting edema in legs CBC, BMP 10/14/19 07:03 10/14/19 07:03 Current Medications Generic Name Dose Route Start Last Admin Trade Name Fish PRN Reason Stop Dose Admin Albuterol/Ipratropium 1 amp 10/13/19 05:53 Duoneb - NEB Q6H PRN SHORTNESS OF BREATH Amlodipine Besylate 10 mg 10/13/19 10:30 10/13/19 11:22 Norvasc - PO 10 mg DAILY [facility] Administration Atorvastatin Calcium 80 mg 10/13/19 22:00 10/13/19 21:33 Lipitor - PO 80 mg HS [facility] Administration Budesonide/Formoterol Fumarate 1 puff 10/13/19 10:00 10/13/19 21:33 Symbicort 160/4.5mcg - IH 1 puff BID [facility] Administration Carbidopa/Levodopa 1.5 combo 10/13/19 06:00 10/14/19 05:43 Sinemet *Cr* 50/200 - PO 1.5 combo TID [facility] Administration Carvedilol 25 mg 10/13/19 10:30 10/13/19 21:33 Coreg - PO 25 mg BID [facility] Administration Furosemide 40 mg 10/13/19 16:00 10/14/19 05:44 Lasix Injection - IVPUSH 40 mg BID@0600,1400 [facility] Administration Hydralazine HCl 25 mg 10/13/19 10:30 10/13/19 21:33 Apresoline - PO 25 mg BID [facility] Administration Insulin Aspart 1 vial 10/13/19 11:00 10/14/19 06:17 Novolog Vial Sliding Scale - SQ Not Given ACHS [facility] Protocol Non-Formulary Medication 5,000 unit 10/13/19 17:30 Ergocalciferol (Vitamin D2) [Vitamin D2] PO Tu@1000 [facility] Pantoprazole Sodium 40 mg 10/14/19 10:00 Protonix - PO DAILY [facility] Ranolazine 500 mg 10/13/19 22:00 10/13/19 22:07 Ranexa - PO 500 mg BID [facility] Administration Tamsulosin HCl 0.4 mg 10/13/19 08:30 10/14/19 07:50 Flomax - PO 0.4 mg DAILY@0830 [facility] Administration ASSESSMENT AND PLAN: This is an 84 year old man with a history of HTN, hyperlipidemia, CAD, CABG, CHF, atrial fib, chronic hypoxic respiratory failure, COPD, ILD, CKD, Parkinson disease, recently hospitalized with COPD exacerbation, ANÍBAL, urinary retention who presented to the ED with SOB, continued hemoptysis, leg edema. -Anemia: severe -DHF: Acute on chronic -CAD,CABG 2008, patent graft 2010, negative Trop despite severe anemia -PAD: Carotid and LE; s/p Lt CEA -COPD, Recent Hemoptysis -PAFb -GIB/Gastric Cancer? /polyps -Parkinsonism Plan: -BT keep Hb>8; investigate the source: -IV Lasix after EACH BT then PRN : monitor renal function -No Anticoagulation, ; High bleeding risk; possible NELY closure to be consider in future; monitor H/H; AC reconsider if anemia due to chronic disease (doubtful of this degree) -Cont other cardiac meds
[2019-10-14] MEDS: RANOLAZINE E.R. 500 MG TABLET (FP) PO SCH ×2 (10:03→21:25)
[2019-10-14] MEDS: CARVEDILOL 25 MG TABLET (FP) PO SCH ×2 (10:03→21:25)
[2019-10-14] MEDS: PANTOPRAZOLE 40 MG TABLET PO SCH (10:03)
[2019-10-14] MEDS: amLODIPine BESYLATE 10 MG TABLET (FP) PO SCH (10:03)
[2019-10-14] MEDS: BUDESONIDE/FORMETEROL FUMARATE 160/4.5 mcg INHALER IH SCH ×2 (10:03→21:26)
[2019-10-14] MEDS: hydrALAZINE HCL 25 MG TABLET (FP) PO SCH ×2 (10:03→21:25)
--- NOTE | 2019-10-14 11:37 | PN ---
Progress Note, Physician Chief Complaint: Shortness of breath History of Present Illness: Seen and examined at the bedside awake and alert continues to have sob cough improved making urine via yanes has some pink urine - Current Medication List Current Medications: Active Medications Albuterol/Ipratropium (Duoneb -) 1 amp NEB Q6H PRN PRN Reason: SHORTNESS OF BREATH Amlodipine Besylate (Norvasc -) 10 mg PO DAILY [facility] Last Admin: 10/14/19 10:03 Dose: 10 mg Documented by: Atorvastatin Calcium (Lipitor -) 80 mg PO HS [facility] Last Admin: 10/13/19 21:33 Dose: 80 mg Documented by: Budesonide/Formoterol Fumarate (Symbicort 160/4.5mcg -) 1 puff IH BID [facility] Last Admin: 10/14/19 10:03 Dose: 1 puff Documented by: Carbidopa/Levodopa (Sinemet *Cr* 50/200 -) 1.5 combo PO TID [facility] Last Admin: 10/14/19 05:43 Dose: 1.5 combo Documented by: Carvedilol (Coreg -) 25 mg PO BID [facility] Last Admin: 10/14/19 10:03 Dose: 25 mg Documented by: Furosemide (Lasix Injection -) 40 mg IVPUSH BID@0600,1400 [facility] Last Admin: 10/14/19 05:44 Dose: 40 mg Documented by: Hydralazine HCl (Apresoline -) 25 mg PO BID [facility] Last Admin: 10/14/19 10:03 Dose: 25 mg Documented by: Insulin Aspart (Novolog Vial Sliding Scale -) 1 vial SQ [facility]; Protocol Last Admin: 10/14/19 06:17 Dose: Not Given Documented by: Non-Formulary Medication (Ergocalciferol (Vitamin D2) [Vitamin D2]) 5,000 unit PO Tu@1000 [facility] Pantoprazole Sodium (Protonix -) 40 mg PO DAILY [facility] Last Admin: 10/14/19 10:03 Dose: 40 mg Documented by: Ranolazine (Ranexa -) 500 mg PO BID [facility] Last Admin: 10/14/19 10:03 Dose: 500 mg Documented by: Tamsulosin HCl (Flomax -) 0.4 mg PO DAILY@0830 [facility] Last Admin: 10/14/19 07:50 Dose: 0.4 mg Documented by: - Objective Vital Signs: Vital Signs Temperature 98.0 F 10/14/19 09:00 Pulse Rate 58 L 10/14/19 09:00 Respiratory Rate 20 10/14/19 09:00 Blood Pressure 132/48 L 10/14/19 09:00 O2 Sat by Pulse Oximetry (%) 98 10/14/19 09:00 Constitutional: Yes: No Distress HENT: Yes: Atraumatic Neck: Yes: Supple Cardiovascular: Yes: Regular Rate and Rhythm Respiratory: Yes: Regular, Diminished, On Nasal O2 Gastrointestinal: Yes: Soft Extremities: No: Cyanosis Edema: No Labs: CBC, BMP 10/14/19 07:03 10/14/19 07:03 INR, PTT INR 2.11 (0.83-1.09) H 10/13/19 00:10 Assessment/Plan 84 year old male with history of CKD, hypertension, CHF, COPD, CAD s/p CABG, prostate cancer, asthma on home O2 who presented from home with shortness of breath and leg swelling and admitted for CHF with Cr of 2.4. 1. CKD 2. CHF 3. Acute on chronic anemia 4. CAD s/p CA?BG 5. Hypertension 6. Urinary retention now with yanes Renal function remains stable There are no overt electrolyte or acid/base disturbances noted. Continue IV Lasix BID for edema management. s/p PRBC Check iron studies (pending) May require TRISTAN give CKD and amemia maintain yanes, on flomax. Trial of void later this admission Urology follow up as an outpatient Thank you Virgilio De Oliveira DO
[2019-10-14] MEDS: POLYETHYLENE GLYCOL 3350 119 GM BTL PO SCH (13:30)
--- NOTE | 2019-10-14 16:11 | PN ---
Progress Note (short form) - Note Progress Note: Subjective: no fever or chills. No ARIAS . has SOB . felt anxious last night . no pain. coughed up a small clot this am . no other bleeding . hematuria last night Objective: Vital Signs: Last Vital Signs Temp Pulse Resp BP Pulse Ox 98.5 F 61 20 137/80 98 10/14/19 13:00 10/14/19 13:00 10/14/19 13:00 10/14/19 13:00 10/14/19 09:00 Laboratory Results - last 24 hr 10/13/19 10/13/19 10/13/19 01:04 16:28 20:29 WBC RBC Hgb Hct MCV MCH MCHC RDW Plt Count MPV Sodium Potassium Chloride Carbon Dioxide Anion Gap BUN Creatinine Est GFR (CKD-EPI)AfAm Est GFR (CKD-EPI)NonAf POC Glucometer 115 106 Random Glucose Calcium Phosphorus Magnesium Total Bilirubin AST ALT Alkaline Phosphatase LD Total Total Protein Albumin COVID-19 (GIOVANI) Not detected 10/13/19 10/13/19 10/13/19 20:39 22:44 23:04 WBC RBC Hgb Hct MCV MCH MCHC RDW Plt Count MPV Sodium Potassium Chloride Carbon Dioxide Anion Gap BUN Creatinine Est GFR (CKD-EPI)AfAm Est GFR (CKD-EPI)NonAf POC Glucometer 71 93 Random Glucose Calcium Phosphorus Magnesium Total Bilirubin AST ALT Alkaline Phosphatase LD Total 205 Total Protein Albumin COVID-19 (GIOVAIN) 10/14/19 10/14/19 10/14/19 05:38 07:03 07:03 WBC 7.6 RBC 2.64 L Hgb 7.6 L Hct 23.0 L MCV 87.0 MCH 28.9 MCHC 33.2 RDW 17.7 H Plt Count 86 L MPV 9.1 Sodium 142 Potassium 4.3 Chloride 104 Carbon Dioxide 35 H Anion Gap 4 L BUN 75.2 H Creatinine 2.5 H Est GFR (CKD-EPI)AfAm 26.53 Est GFR (CKD-EPI)NonAf 22.89 POC Glucometer 82 Random Glucose 147 H Calcium 8.1 L Phosphorus 3.8 Magnesium 3.2 H Total Bilirubin 0.8 AST 19 ALT 6 L Alkaline Phosphatase 51 LD Total Total Protein 5.4 L Albumin 3.0 L COVID-19 (GIOVANI) 10/14/19 11:20 WBC RBC Hgb Hct MCV MCH MCHC RDW Plt Count MPV Sodium Potassium Chloride Carbon Dioxide Anion Gap BUN Creatinine Est GFR (CKD-EPI)AfAm Est GFR (CKD-EPI)NonAf POC Glucometer 113 Random Glucose Calcium Phosphorus Magnesium Total Bilirubin AST ALT Alkaline Phosphatase LD Total Total Protein Albumin COVID-19 (GIOVANI) Physical Exam: Awake, alert,. dry MM. anxious looking CV: RRR, no MRG Lungs: scattered wheezing ABd: soft, NT, Nd , NL Bs . Ext: 1+ edema on legs and feet . ASSESSMENT AND PLAN: 84 y/o man with h/o hypertension, HLD, CKD, CAD sp CABG x 2 vessels, carotid stenosis, CHF, Afib, Parkinson disease, prostate cancer on radiation therapy, COPD on 2 liters NC at home, possible ILD , recurrent pneumonias who presented with LE edema and hemoptysis and was found to have acute CHF 1- Acute on chronic diastolic CHF exacerbation. - cont lasix BID - follow echo - cont coreg 2- Hemoptysis: suspect due to airway irritation from cough , and also pulm edema. - hold eliquis for now 3- Acute on chronic anemia. I doubt that small amount to hemoptysis and minimal hematuria account for the drop of Hb. 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 EGD and path reviwed. - get GI eval - follow iron studies - OB in stool neg 4- HTN: Norvasc , coreg, and HZN . 5- DM : SSI 6-Recent hx of urinary retention, now hemauria . probably traumatic form yanes - uro 7- A fib: will discuss safety of AC. cont coreg . hold eliquis Visit type - Emergency Visit Emergency Visit: Yes ED Registration Date: 10/13/19 Care time: The patient presented to the Emergency Department on the above date and was hospitalized for further evaluation of their emergent condition. - New Patient This patient is new to me today: No - Critical Care Critical Care patient: No - Medication Review Med list reviewed for High Risk Meds patients 65 and older: Yes
[2019-10-14] MEDS: ATORVASTATIN CA 80 MG TABLET (FP) PO SCH (21:25)
[2019-10-15] MEDS ORDERED: MELATONIN 5 MG TABLETS PO ONE (00:57)
[2019-10-15] MEDS: INSULIN SLIDING SCALE (NOVOLOG) 1 VIAL SQ SCH ×4 (06:41→21:40)
[2019-10-15] MEDS: FUROSEMIDE 40 MG/4 ML INJECTABLE VIAL IVPUSH SCH ×2 (06:41→15:09)
[2019-10-15 08:34] LABS: HEMATOCRIT 21.5 % (35.4-49); HEMOGLOBIN 7.3 GM/dL (11.7-16.9); MCH 30.1 pg (25.7-33.7); MCHC 33.9 g/dl (32.0-35.9); MEAN CELL VOLUME 88.9 fl (80-96); MEAN PLT VOLUME 9.2 fl (7.5-11.1); PLATELET COUNT 78 K/MM3 (134-434); RBC 2.42 M/mm3 (4.00-5.60); RDW 17.8 % (11.9-15.9); WHITE BLOOD COUNT 7.4 K/mm3 (4.0-10.0)
[2019-10-15 08:54] LABS: BLOOD UREA NITROGEN 65.5 mg/dL (7-18); CALCIUM 8.2 mg/dL (8.5-10.1); CREATININE 2.3 mg/dL (0.55-1.3)
--- NOTE | 2019-10-15 09:50 | PN ---
Progress Note, Physician History of Present Illness: SUBJECTIVE: This is an 84 year old man with a history of HTN, hyperlipidemia, CAD, CABG, CHF (diatolic) , Paroxysmal atrial fib, chronic hypoxic respiratory failure, COPD, ILD, CKD, Parkinson disease who comes to the ED complaining of SOB, coughing up blood, nausea and vomiting, and worsening leg swelling. Since last visit 09/20/2019, had been admitted 09/24 for hemoptysis and COPD exacerb ation. During the hospitalization, he had ANÍBAL and urinary retention requiring a Sandoval catheter which was removed prior to discharge. Lasix and Cozaar were held because of ANÍBAL. He was discharged on 09/30 on a prednisone taper. Pt has started seeing ?blood in mouth, unable to eat and SOB. 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 no plans for angio in future; Echo 05/24 Nl EF, grade II diastolic dysfunction Cath 2010 patent WEN>LAD, SVG>LPL, RI Orthostatic Hypotension Chest Pain Syndrome PAST SURGICAL HISTORY: CABG 2008 Carotid endartectomy: left - Current Medication List Current Medications: Active Medications Albuterol/Ipratropium (Duoneb -) 1 amp NEB Q6H PRN PRN Reason: SHORTNESS OF BREATH Amlodipine Besylate (Norvasc -) 10 mg PO DAILY [facility] Last Admin: 10/14/19 10:03 Dose: 10 mg Documented by: Atorvastatin Calcium (Lipitor -) 80 mg PO HS [facility] Last Admin: 10/14/19 21:25 Dose: 80 mg Documented by: Budesonide/Formoterol Fumarate (Symbicort 160/4.5mcg -) 1 puff IH BID [facility] Last Admin: 10/14/19 21:26 Dose: 1 puff Documented by: Carbidopa/Levodopa (Sinemet *Cr* 50/200 -) 1.5 combo PO TID [facility] Last Admin: 10/15/19 06:41 Dose: 1.5 combo Documented by: Carvedilol (Coreg -) 25 mg PO BID [facility] Last Admin: 10/14/19 21:25 Dose: 25 mg Documented by: Furosemide (Lasix Injection -) 40 mg IVPUSH BID@0600,1400 [facility] Last Admin: 10/15/19 06:41 Dose: 40 mg Documented by: Hydralazine HCl (Apresoline -) 25 mg PO BID [facility] Last Admin: 10/14/19 21:25 Dose: 25 mg Documented by: Insulin Aspart (Novolog Vial Sliding Scale -) 1 vial SQ ACHS [facility]; Protocol Last Admin: 10/15/19 06:41 Dose: Not Given Documented by: Non-Formulary Medication (Ergocalciferol (Vitamin D2) [Vitamin D2]) 5,000 unit PO Tu@1000 [facility] Pantoprazole Sodium (Protonix -) 40 mg PO DAILY [facility] Last Admin: 10/14/19 10:03 Dose: 40 mg Documented by: Polyethylene Glycol (Miralax (For Daily Use) -) 17 gm PO DAILY [facility] Last Admin: 10/14/19 13:30 Dose: 17 gm Documented by: Ranolazine (Ranexa -) 500 mg PO BID [facility] Last Admin: 10/14/19 21:25 Dose: 500 mg Documented by: Tamsulosin HCl (Flomax -) 0.4 mg PO DAILY@0830 [facility] Last Admin: 10/14/19 07:50 Dose: 0.4 mg Documented by: - Objective Vital Signs: Vital Signs Temperature 98.1 F 10/15/19 05:00 Pulse Rate 66 10/15/19 05:00 Respiratory Rate 10/15/19 05:00 Blood Pressure 136/45 L 10/15/19 05:00 O2 Sat by Pulse Oximetry (%) 95 10/14/19 21:00 Constitutional: Yes: No Distress, Calm, Thin Neck: Yes: Supple Cardiovascular: Yes: Regular Rate and Rhythm Respiratory: Yes: Regular, Diminished, On Nasal O2 Gastrointestinal: Yes: Soft, Hypoactive Bowel Sounds Edema: No Labs: CBC, BMP 10/15/19 06:47 10/15/19 06:47 INR, PTT INR 2.11 (0.83-1.09) H 10/13/19 00:10 Problem List - Problems (1) Acute on chronic diastolic (congestive) heart failure Code(s): I50.33 - ACUTE ON CHRONIC DIASTOLIC (CONGESTIVE) HEART FAILURE (2) Anemia Code(s): D64.9 - ANEMIA, UNSPECIFIED Qualifiers: Anemia type: unspecified type Qualified Code(s): D64.9 - Anemia, unspecified (3) PAF (paroxysmal atrial fibrillation) Code(s): I48.0 - PAROXYSMAL ATRIAL FIBRILLATION (4) S/P CABG (coronary artery bypass graft) Code(s): Z95.1 - PRESENCE OF AORTOCORONARY BYPASS GRAFT (5) DM Diabetes mellitus Code(s): E11.9 - TYPE 2 DIABETES MELLITUS WITHOUT COMPLICATIONS Assessment/Plan This is an 84 year old man with a history of HTN, hyperlipidemia, CAD, CABG, CHF, atrial fib, chronic hypoxic respiratory failure, COPD, ILD, CKD, Parkinson disease, recently hospitalized with COPD exacerbation, ANÍBAL, urinary retention who presented to the ED with SOB, resolved hemoptysis, leg edema. -Anemia: severe post transfusion -DHF: Acute on chronic -CAD,CABG 2008, patent graft 2010, negative Trop despite severe anemia -PAD: Carotid and LE; s/p Lt CEA -COPD, Recent Hemoptysis -PAFb -GIB/Gastric Cancer? /polyps -Parkinsonism Plan: -BT keep Hb>8; investigate the source: -IV Lasix after EACH BT then PRN : monitor renal function -No Anticoagulation, ; High bleeding risk; possible NELY closure to be consider in future; monitor H/H; AC reconsider if anemia due to chronic disease (doubtful of this degree) -Cont Norvasc 10 qd, Lipitor 80 qd, carvedilol 25 bid, Cardura 2 qd, Jardiance 25 qd, Cardura 2 qd, hydralazine 25 bid, Ranexa 500 bid and losartan 50 qd as hemodynamics tolerate
[2019-10-15] MEDS: CARVEDILOL 25 MG TABLET (FP) PO SCH ×2 (09:54→21:44)
[2019-10-15] MEDS: hydrALAZINE HCL 25 MG TABLET (FP) PO SCH ×2 (09:54→21:43)
[2019-10-15] MEDS: TAMSULOSIN HCL 0.4 MG CAP PO SCH (09:54)
[2019-10-15] MEDS: POLYETHYLENE GLYCOL 3350 119 GM BTL PO SCH (09:54)
[2019-10-15] MEDS: PANTOPRAZOLE 40 MG TABLET PO SCH (09:54)
[2019-10-15] MEDS: amLODIPine BESYLATE 10 MG TABLET (FP) PO SCH (09:54)
[2019-10-15] MEDS: BUDESONIDE/FORMETEROL FUMARATE 160/4.5 mcg INHALER IH SCH ×2 (09:55→21:44)
--- NOTE | 2019-10-15 12:32 | PN ---
Progress Note (short form) - Note Progress Note: PULMONARY Still some hemoptysis but breathing better. No fevers. Vital Signs Period Temp Pulse Resp BP Sys/Knutson Pulse Ox Last 24 Hr 98.1 F-98.6 F 61-66 20-20 136-155/44-80 94-95 Gen: NAD at rest Heart: RRR Lung: decreased breath sounds at the bases Abd: soft, nontender Ext: no edema CBC, BMP 10/15/19 06:47 10/15/19 06:47 Active Medications Albuterol/Ipratropium (Duoneb -) 1 amp NEB Q6H PRN PRN Reason: SHORTNESS OF BREATH Amlodipine Besylate (Norvasc -) 10 mg PO DAILY [facility] Last Admin: 10/15/19 09:54 Dose: 10 mg Documented by: Atorvastatin Calcium (Lipitor -) 80 mg PO HS [facility] Last Admin: 10/14/19 21:25 Dose: 80 mg Documented by: Budesonide/Formoterol Fumarate (Symbicort 160/4.5mcg -) 1 puff IH BID [facility] Last Admin: 10/15/19 09:55 Dose: 1 puff Documented by: Carbidopa/Levodopa (Sinemet *Cr* 50/200 -) 1.5 combo PO TID [facility] Last Admin: 10/15/19 06:41 Dose: 1.5 combo Documented by: Carvedilol (Coreg -) 25 mg PO BID [facility] Last Admin: 10/15/19 09:54 Dose: 25 mg Documented by: Furosemide (Lasix Injection -) 40 mg IVPUSH BID@0600,1400 [facility] Last Admin: 10/15/19 06:41 Dose: 40 mg Documented by: Hydralazine HCl (Apresoline -) 25 mg PO BID [facility] Last Admin: 10/15/19 09:54 Dose: 25 mg Documented by: Insulin Aspart (Novolog Vial Sliding Scale -) 1 vial SQ ACHS [facility]; Protocol Last Admin: 10/15/19 12:01 Dose: Not Given Documented by: Non-Formulary Medication (Ergocalciferol (Vitamin D2) [Vitamin D2]) 5,000 unit PO Tu@1000 [facility] Pantoprazole Sodium (Protonix -) 40 mg PO DAILY [facility] Last Admin: 10/15/19 09:54 Dose: 40 mg Documented by: Polyethylene Glycol (Miralax (For Daily Use) -) 17 gm PO DAILY [facility] Last Admin: 10/15/19 09:54 Dose: 17 gm Documented by: Ranolazine (Ranexa -) 500 mg PO BID [facility] Last Admin: 10/14/19 21:25 Dose: 500 mg Documented by: Tamsulosin HCl (Flomax -) 0.4 mg PO DAILY@0830 [facility] Last Admin: 10/15/19 09:54 Dose: 0.4 mg Documented by: A/P Acute on Chronic Diastolic Heart Failure Hemoptysis COPD Chronic Hypoxic Respiratory Failure Interstitial Lung Disease Atrial Fibrilation HTN Hyperlipidemia CKD Anemia Thrombocytopenia - continue lasix - monitor urine output, creatinine - monitor/quantify hemoptysis - rate control - O2 to keep SpO2 >90% - DVT prophylaxis
--- NOTE | 2019-10-15 13:38 | PN ---
Progress Note, Physician History of Present Illness: Pt seen and examined at bedside. He is awake and alert. He still has hemoptysis. - Current Medication List Current Medications: Active Medications Albuterol/Ipratropium (Duoneb -) 1 amp NEB Q6H PRN PRN Reason: SHORTNESS OF BREATH Amlodipine Besylate (Norvasc -) 10 mg PO DAILY [facility] Last Admin: 10/15/19 09:54 Dose: 10 mg Documented by: Atorvastatin Calcium (Lipitor -) 80 mg PO HS [facility] Last Admin: 10/14/19 21:25 Dose: 80 mg Documented by: Budesonide/Formoterol Fumarate (Symbicort 160/4.5mcg -) 1 puff IH BID [facility] Last Admin: 10/15/19 09:55 Dose: 1 puff Documented by: Carbidopa/Levodopa (Sinemet *Cr* 50/200 -) 1.5 combo PO TID [facility] Last Admin: 10/15/19 06:41 Dose: 1.5 combo Documented by: Carvedilol (Coreg -) 25 mg PO BID [facility] Last Admin: 10/15/19 09:54 Dose: 25 mg Documented by: Furosemide (Lasix Injection -) 40 mg IVPUSH BID@0600,1400 [facility] Last Admin: 10/15/19 06:41 Dose: 40 mg Documented by: Hydralazine HCl (Apresoline -) 25 mg PO BID [facility] Last Admin: 10/15/19 09:54 Dose: 25 mg Documented by: Insulin Aspart (Novolog Vial Sliding Scale -) 1 vial SQ [facility], [facility]; Protocol Last Admin: 10/15/19 12:01 Dose: Not Given Documented by: Non-Formulary Medication (Ergocalciferol (Vitamin D2) [Vitamin D2]) 5,000 unit PO Tu@1000 [facility] Pantoprazole Sodium (Protonix -) 40 mg PO DAILY [facility] Last Admin: 10/15/19 09:54 Dose: 40 mg Documented by: Polyethylene Glycol (Miralax (For Daily Use) -) 17 gm PO DAILY [facility] Last Admin: 10/15/19 09:54 Dose: 17 gm Documented by: Ranolazine (Ranexa -) 500 mg PO BID [facility] Last Admin: 10/14/19 21:25 Dose: 500 mg Documented by: Tamsulosin HCl (Flomax -) 0.4 mg PO DAILY@0830 [facility] Last Admin: 10/15/19 09:54 Dose: 0.4 mg Documented by: - Objective Vital Signs: Vital Signs Temperature 98.2 F 10/15/19 09:00 Pulse Rate 65 10/15/19 09:00 Respiratory Rate 20 10/15/19 09:00 Blood Pressure 155/45 L 10/15/19 09:00 O2 Sat by Pulse Oximetry (%) 94 L 10/15/19 09:00 Constitutional: Yes: Calm Cardiovascular: Yes: S1, S2 Respiratory: Yes: On Nasal O2, Wheezes Gastrointestinal: Yes: Soft Genitourinary: Yes: Sandoval Present Musculoskeletal: Yes: WNL Edema: No Neurological: Yes: Oriented Labs: CBC, BMP 10/15/19 06:47 10/15/19 06:47 INR, PTT INR 2.11 (0.83-1.09) H 10/13/19 00:10 Assessment/Plan Current Medications Generic Name Dose Route Start Last Admin Trade Name Freq PRN Reason Stop Dose Admin Albuterol/Ipratropium 1 amp 10/13/19 05:53 Duoneb - NEB Q6H PRN SHORTNESS OF BREATH Amlodipine Besylate 10 mg 10/13/19 10:30 10/15/19 09:54 Norvasc - PO 10 mg DAILY RANJAN Administration Atorvastatin Calcium 80 mg 10/13/19 22:00 10/14/19 21:25 Lipitor - PO 80 mg HS RANJAN Administration Budesonide/Formoterol Fumarate 1 puff 10/13/19 10:00 10/15/19 09:55 Symbicort 160/4.5mcg - IH 1 puff BID RANJAN Administration Carbidopa/Levodopa 1.5 combo 10/13/19 06:00 10/15/19 06:41 Sinemet *Cr* 50/200 - PO 1.5 combo TID RANJAN Administration Carvedilol 25 mg 10/13/19 10:30 10/15/19 09:54 Coreg - PO 25 mg BID RANJAN Administration Furosemide 40 mg 10/13/19 16:00 10/15/19 06:41 Lasix Injection - IVPUSH 40 mg BID@0600,1400 RANJAN Administration Hydralazine HCl 25 mg 10/13/19 10:30 10/15/19 09:54 Apresoline - PO 25 mg BID RANJAN Administration Insulin Aspart 1 vial 10/13/19 11:00 10/15/19 12:01 Novolog Vial Sliding Scale - SQ Not Given ACHS [facility] Protocol Non-Formulary Medication 5,000 unit 10/13/19 17:30 Ergocalciferol (Vitamin D2) [Vitamin D2] PO Tu@1000 [facility] Pantoprazole Sodium 40 mg 10/14/19 10:00 10/15/19 09:54 Protonix - PO 40 mg DAILY RANJAN Administration Polyethylene Glycol 17 gm 10/14/19 11:45 10/15/19 09:54 Miralax (For Daily Use) - PO 17 gm DAILY RANJAN Administration Ranolazine 500 mg 10/13/19 22:00 10/14/19 21:25 Ranexa - PO 500 mg BID RANJAN Administration Tamsulosin HCl 0.4 mg 10/13/19 08:30 10/15/19 09:54 Flomax - PO 0.4 mg DAILY@0830 RANJAN Administration Laboratory Tests 05/03/11 10/01/14 09/27/19 05:35 05:40 06:05 SUZAN M-Larry Not observed c-ANCA <1:20 Proteinase 3 (PR3) <3.5 p-ANCA <1:20 Atypical p-ANCA <1:20 Myeloperoxidase Ab <9.0 Tiss Transglutamin IgA < 2 Glomerular Base Memb Ab 3 Laboratory Tests 10/15/19 06:47 Iron 32 L Ferritin 51.3 Impression 1. ckd 2. anemia 3. urinary obstruction 4. hemoptysis 5. chf 6. cad 7. htn 8. 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
[2019-10-15] MEDS: RANOLAZINE E.R. 500 MG TABLET (FP) PO SCH ×2 (15:09→21:44)
[2019-10-15] MEDS ORDERED: FERROUS GLUCONATE 324 MG TAB (FP) PO SCH (17:30)
--- NOTE | 2019-10-15 18:14 | CONS ---
DATE OF CONSULTATION: DATE OF DICTATION: 10/15/2019 HISTORY OF PRESENT ILLNESS: The patient is an 84-year-old male with a long and complicated medical history including hypertension, diabetes, heart failure, COPD, who comes in with a possible pneumonia. He also is on home oxygen. He is also on blood thinner for atrial fibrillation. He does have history of prostate cancer for which he underwent external beam radiation therapy more than 10 years ago. He is admitted with a diagnosis of left lower lobe infiltrate as well as acute on chronic heart failure. Patient was found to be in overflow incontinence. A Sandoval catheter was placed, and the drainage is bloody. Patient was seen 2 weeks earlier for the same complaint. Will continue with Sandoval catheter. Will also continue with Flomax. Will give patient trial of voiding in 48 hours. If patient fails voiding, will recommend a cystoscopy and urodynamic evaluation. This could be done as an outpatient. Will follow with you. Apryl [id number]
[2019-10-15] MEDS: FERROUS GLUCONATE 324 MG TAB (FP) PO SCH (18:42)
--- NOTE | 2019-10-15 19:43 | PN ---
Teaching Attending Note Name of Resident: Octavia Hoffmann ATTENDING PHYSICIAN STATEMENT I saw and evaluated the patient. I reviewed the resident's note and discussed the case with the resident. I agree with the resident's findings and plan as documented. SUBJECTIVE:seen around 11 am no fever or chills. his breathing is better . no pain. did not sleep last night Physical Exam: Awake, alert,. dry MM. anxious looking CV: RRR, no MRG Lungs: scattered wheezing , decreased breath sounds at base ABd: soft, NT, Nd , NL Bs. Ext: 1+ edema on legs and feet. ASSESSMENT AND PLAN: 84 y/o man with h/o hypertension, HLD, CKD, CAD sp CABG x 2 vessels, carotid stenosis, CHF, Afib, Parkinson disease, prostate cancer on radiation therapy, COPD on 2 liters NC at home, possible ILD , recurrent pneumonias who presented with LE edema and hemoptysis and was found to have acute CHF 1- Acute on chronic diastolic CHF exacerbation. - cont lasix BID - cont coreg 2- Hemoptysis: suspect due to airway irritation from cough , and also pulm edema. - hold eliquis 3- Acute on chronic anemia. 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 - get GI eval. ? EGD - resume po home iron 4- HTN: Norvasc , coreg, and HZN . 5- DM : SSI 6-Recent hx of urinary retention, now hemauria . probably traumatic form yanes . has h/o prostate cancer - dc yanes in 48 hrs. - cont flomax 7- h/o A fib: agree with card that AC is high risk fro bleeding. cont coreg . hold eliquis
--- NOTE | 2019-10-15 21:05 | PN ---
Physical Exam: SUBJECTIVE: No overnight events. Patient seen and examined. C/o nausea but denies vomiting. Endorses SOB worse than yesterday and hemoptysis. OBJECTIVE: Vital Signs Period Temp Pulse Resp BP Sys/Knutson Pulse Ox Last 24 Hr 98.1 F-98.5 F 57-66 18-20 134-155/45-50 94-95 GENERAL: The patient is awake, alert, and fully oriented, in no acute distress. HEENT: NT/ NC, sclera anicteric, conjunctiva clear. No ptosis. dry mucous membranes. dried blood on pt's mask LUNGS: diminished breath sounds at bases b/l. wheezing b/l, no crackles, no accessory muscle use. HEART: Regular rate and rhythm, S1, S2 without murmur, rub or gallop. ABDOMEN: Soft, nontender, nondistended, normoactive bowel sounds, no guarding, no rebound, no hepatosplenomegaly, no masses. EXTREMITIES: 1+ edema LE b/l NEUROLOGICAL: gait not observed. PSYCH: Normal mood, normal affect. SKIN: Warm, dry, normal turgor, no rashes or lesions noted Laboratory Results - last 24 hr 10/13/19 10/14/19 10/15/19 00:50 21:23 06:33 WBC RBC Hgb Hct MCV MCH MCHC RDW Plt Count MPV Sodium Potassium Chloride Carbon Dioxide Anion Gap BUN Creatinine Est GFR (CKD-EPI)AfAm Est GFR (CKD-EPI)NonAf POC Glucometer 116 79 Random Glucose Calcium Iron TIBC Iron Saturation Unsaturated IBC Ferritin Blood Type O NEGATIVE Antibody Screen Negative Crossmatch See Detail 10/15/19 10/15/19 10/15/19 06:46 06:47 06:47 WBC 7.4 RBC 2.42 L Hgb 7.3 L Hct 21.5 L MCV 88.9 MCH 30.1 MCHC 33.9 RDW 17.8 H Plt Count 78 L MPV 9.2 Sodium 145 Potassium 4.0 Chloride 104 Carbon Dioxide 36 H Anion Gap 6 L BUN 65.5 H Creatinine 2.3 H Est GFR (CKD-EPI)AfAm 29.34 Est GFR (CKD-EPI)NonAf 25.31 POC Glucometer 94 Random Glucose 79 Calcium 8.2 L Iron 32 L TIBC 203 L Iron Saturation 15 L Unsaturated IBC 171 L Ferritin 51.3 Blood Type Antibody Screen Crossmatch 10/15/19 11:58 WBC RBC Hgb Hct MCV MCH MCHC RDW Plt Count MPV Sodium Potassium Chloride Carbon Dioxide Anion Gap BUN Creatinine Est GFR (CKD-EPI)AfAm Est GFR (CKD-EPI)NonAf POC Glucometer 114 Random Glucose Calcium Iron TIBC Iron Saturation Unsaturated IBC Ferritin Blood Type Antibody Screen Crossmatch Active Medications Generic Name Dose Route Start Last Admin Trade Name Freq PRN Reason Stop Dose Admin Albuterol/Ipratropium 1 amp 10/13/19 05:53 Duoneb - NEB Q6H PRN SHORTNESS OF BREATH Amlodipine Besylate 10 mg 10/13/19 10:30 10/15/19 09:54 Norvasc - PO 10 mg DAILY RANJAN Administration Atorvastatin Calcium 80 mg 10/13/19 22:00 10/14/19 21:25 Lipitor - PO 80 mg HS RANJAN Administration Budesonide/Formoterol Fumarate 1 puff 10/13/19 10:00 10/15/19 09:55 Symbicort 160/4.5mcg - IH 1 puff BID RANJAN Administration Carbidopa/Levodopa 1.5 combo 10/13/19 06:00 10/15/19 15:10 Sinemet *Cr* 50/200 - PO 1.5 combo TID RANJAN Administration Carvedilol 25 mg 10/13/19 10:30 10/15/19 09:54 Coreg - PO 25 mg BID RANJAN Administration Ferrous Gluconate 324 mg 10/15/19 13:40 10/15/19 18:42 Fergon - PO 324 mg TIDCM RANJAN Administration Furosemide 40 mg 10/13/19 16:00 10/15/19 15:09 Lasix Injection - IVPUSH 40 mg BID@0600,1400 RANJAN Administration Hydralazine HCl 25 mg 10/13/19 10:30 10/15/19 09:54 Apresoline - PO 25 mg BID RANJAN Administration Insulin Aspart 1 vial 10/13/19 11:00 10/15/19 18:32 Novolog Vial Sliding Scale - SQ Not Given ACHS COUNTS INCLUDE 234 BEDS AT THE [facility] Protocol Non-Formulary Medication 5,000 unit 10/13/19 17:30 Ergocalciferol (Vitamin D2) [Vitamin D2] PO Tu@1000 RANJAN Pantoprazole Sodium 40 mg 10/14/19 10:00 10/15/19 09:54 Protonix - PO 40 mg DAILY RANJAN Administration Polyethylene Glycol 17 gm 10/14/19 11:45 10/15/19 09:54 Miralax (For Daily Use) - PO 17 gm DAILY RANJAN Administration Ranolazine 500 mg 10/13/19 22:00 10/15/19 15:09 Ranexa - PO 500 mg BID RANJAN Administration Tamsulosin HCl 0.4 mg 10/13/19 08:30 10/15/19 09:54 Flomax - PO 0.4 mg DAILY@0830 RANJAN Administration ASSESSMENT/PLAN: 84 YO M PMH COPD, afib, HTN, Diastolic CHF, Parkinsons, HLD, prostate cancer, COPD, DM, anemia, CAD (2008 CABG) p/w SOB, LE edema, nausea, & vomiting. Admitted for acute CHF exacerbation. #Acute on Chronic CHF exacerbation. -c/w furosemide 40 mg IV push -c/w carvedilol 25 mg PO BID (home dose) # Hemoptysis -likely from pulmonary edema - eliquis was held #DM: ISS #HTN: c/w hydralazine 25 mg PO BID (home), amlodipine 10 mg PO daily (home), carvedilol 25 mg PO BID (home) #Anemia -Iron, TIBC, Iron sat, unsaturated IBC are low. Ferritin nml. MCV nml. Likely anemia of chronic disease -h/o prostate cancer s/p radiation. 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 -c/w ferrous gluconate -cardio c/s appreciated. IV Lasix after each blood transfusion, then PRN # afib -H&H decreased to 7.3/21.5 today. Hold Eliquis -c/w carvedilol #urinary retention -in 48 hrs d/c yanes - c/w tamsulosin -hematuria likely from traumatic insertion #FEN No IV fluids Monitor BMP Na+ controlled diet #DISPO Maintain med surg Visit type - Emergency Visit Emergency Visit: Yes ED Registration Date: 10/13/19 Care time: The patient presented to the Emergency Department on the above date and was hospitalized for further evaluation of their emergent condition. - New Patient This patient is new to me today: No - Critical Care Critical Care patient: No ATTENDING PHYSICIAN STATEMENT I saw and evaluated the patient. I reviewed the resident's note and discussed the case with the resident. I agree with the resident's findings and plan as documented. SUBJECTIVE: OBJECTIVE: ASSESSMENT AND PLAN:
[2019-10-15] MEDS: ATORVASTATIN CA 80 MG TABLET (FP) PO SCH (21:43)
[2019-10-16] MEDS ORDERED: MELATONIN 5 MG TABLETS PO ONE (01:03)
[2019-10-16 02:44] LABS: HEMATOCRIT 25.5 % (35.4-49); HEMOGLOBIN 8.5 GM/dL (11.7-16.9); MCHC 33.5 g/dl (32.0-35.9); MEAN CELL VOLUME 89.5 fl (80-96); MEAN PLT VOLUME 8.8 fl (7.5-11.1); PLATELET COUNT 82 K/MM3 (134-434); RBC 2.84 M/mm3 (4.00-5.60); WHITE BLOOD COUNT 7.3 K/mm3 (4.0-10.0)
[2019-10-16] MEDS: FUROSEMIDE 40 MG/4 ML INJECTABLE VIAL IVPUSH SCH ×2 (05:18→14:55)
[2019-10-16] MEDS: INSULIN SLIDING SCALE (NOVOLOG) 1 VIAL SQ SCH ×4 (06:03→21:15)
[2019-10-16 06:45] LABS: BASO % 0.3 % (0-2.0); EOS % 1.4 % (0-4.5); HEMATOCRIT 26.9 % (35.4-49); HEMOGLOBIN 8.9 GM/dL (11.7-16.9); LYMPH % 4.7 % (8-40); MCH 29.4 pg (25.7-33.7); MCHC 33.3 g/dl (32.0-35.9); MEAN CELL VOLUME 88.2 fl (80-96); MEAN PLT VOLUME 8.4 fl (7.5-11.1); MONO % 10.8 % (3.8-10.2); NEUT % 82.8 % (42.8-82.8); PLATELET COUNT 85 K/MM3 (134-434); RBC 3.05 M/mm3 (4.00-5.60); RDW 17.2 % (11.9-15.9)
[2019-10-16 07:14] LABS: POTASSIUM 3.8 mmol/L (3.5-5.1)
[2019-10-16 07:20] LABS: ALBUMIN 2.9 g/dl (3.4-5.0); BILIRUBIN,TOTAL 1.7 mg/dL (0.2-1); BLOOD UREA NITROGEN 56.5 mg/dL (7-18); CREATININE 2.3 mg/dL (0.55-1.3); MAGNESIUM 2.6 mg/dL (1.8-2.4); PHOSPHOROUS 3.2 mg/dL (2.5-4.9); TOT PROT 5.6 g/dl (6.4-8.2)
[2019-10-16] MEDS: TAMSULOSIN HCL 0.4 MG CAP PO SCH (07:38)
[2019-10-16] MEDS: FERROUS GLUCONATE 324 MG TAB (FP) PO SCH ×3 (09:00→17:27)
[2019-10-16] MEDS ORDERED: ALBUTEROL SO4 0.083% IH SOL 2.5 MG/3 ML VIAL.NEB. NEB PRN (09:50)
--- NOTE | 2019-10-16 09:51 | PN ---
Progress Note (short form) - Note Progress Note: PULMONARY Less hemoptysis, states breathing better today. No fevers. Vital Signs Period Temp Pulse Resp BP Sys/Knutson Pulse Ox Last 24 Hr 97.8 F-98.6 F 57-65 18-22 127-149/43-52 99 Gen: NAD at rest Heart: RRR Lung: decreased breath sounds at the bases Abd: soft, nontender Ext: no edema CBC, BMP 10/16/19 06:20 10/16/19 06:20 Active Medications Albuterol/Ipratropium (Duoneb -) 1 amp NEB Q6H PRN PRN Reason: SHORTNESS OF BREATH Amlodipine Besylate (Norvasc -) 10 mg PO DAILY [facility] Last Admin: 10/15/19 09:54 Dose: 10 mg Documented by: Atorvastatin Calcium (Lipitor -) 80 mg PO HS [facility] Last Admin: 10/15/19 21:43 Dose: 80 mg Documented by: Budesonide/Formoterol Fumarate (Symbicort 160/4.5mcg -) 1 puff IH BID [facility] Last Admin: 10/15/19 21:44 Dose: 1 puff Documented by: Carbidopa/Levodopa (Sinemet *Cr* 50/200 -) 1.5 combo PO TID [facility] Last Admin: 10/16/19 05:18 Dose: 1.5 combo Documented by: Carvedilol (Coreg -) 25 mg PO BID [facility] Last Admin: 10/15/19 21:44 Dose: 25 mg Documented by: Ferrous Gluconate (Fergon -) 324 mg PO TIDCM [facility] Last Admin: 10/15/19 18:42 Dose: 324 mg Documented by: Furosemide (Lasix Injection -) 40 mg IVPUSH BID@0600,1400 [facility] Last Admin: 10/16/19 05:18 Dose: 40 mg Documented by: Hydralazine HCl (Apresoline -) 25 mg PO BID [facility] Last Admin: 10/15/19 21:43 Dose: 25 mg Documented by: Insulin Aspart (Novolog Vial Sliding Scale -) 1 vial SQ ACHS [facility]; Protocol Last Admin: 10/16/19 06:03 Dose: Not Given Documented by: Non-Formulary Medication (Ergocalciferol (Vitamin D2) [Vitamin D2]) 5,000 unit PO Tu@1000 [facility] Pantoprazole Sodium (Protonix -) 40 mg PO DAILY [facility] Last Admin: 10/15/19 09:54 Dose: 40 mg Documented by: Polyethylene Glycol (Miralax (For Daily Use) -) 17 gm PO DAILY [facility] Last Admin: 10/15/19 09:54 Dose: 17 gm Documented by: Ranolazine (Ranexa -) 500 mg PO BID [facility] Last Admin: 10/15/19 21:44 Dose: 500 mg Documented by: Tamsulosin HCl (Flomax -) 0.4 mg PO DAILY@0830 [facility] Last Admin: 10/16/19 07:38 Dose: 0.4 mg Documented by: A/P Acute on Chronic Diastolic Heart Failure Hemoptysis COPD Chronic Hypoxic Respiratory Failure Interstitial Lung Disease Atrial Fibrilation HTN Hyperlipidemia CKD Anemia Thrombocytopenia - continue lasix - monitor urine output, creatinine - monitor/quantify hemoptysis - inhaled bronchodilators - rate control - O2 to keep SpO2 >90% - DVT prophylaxis
[2019-10-16] MEDS: amLODIPine BESYLATE 10 MG TABLET (FP) PO SCH (09:52)
[2019-10-16] MEDS: hydrALAZINE HCL 25 MG TABLET (FP) PO SCH ×2 (09:52→21:54)
[2019-10-16] MEDS: CARVEDILOL 25 MG TABLET (FP) PO SCH ×2 (09:52→21:54)
[2019-10-16] MEDS: RANOLAZINE E.R. 500 MG TABLET (FP) PO SCH ×2 (09:53→21:54)
[2019-10-16] MEDS: PANTOPRAZOLE 40 MG TABLET PO SCH (09:54)
[2019-10-16] MEDS: POLYETHYLENE GLYCOL 3350 119 GM BTL PO SCH (09:55)
[2019-10-16] MEDS: BUDESONIDE/FORMETEROL FUMARATE 160/4.5 mcg INHALER IH SCH ×2 (10:12→21:54)
--- NOTE | 2019-10-16 10:27 | PN ---
Teaching Attending Note Name of Resident: Arnulfo Li ATTENDING PHYSICIAN STATEMENT I saw and evaluated the patient. I reviewed the resident's note and discussed the case with the resident. I agree with the resident's findings and plan as documented. SUBJECTIVE: Patient is comfortable with no acute distress. OBJECTIVE: Vital Signs Temperature 97.9 F 10/16/19 09:59 Pulse Rate 65 10/16/19 09:59 Respiratory Rate 20 10/16/19 09:59 Blood Pressure 150/51 L 10/16/19 09:59 O2 Sat by Pulse Oximetry (%) 99 10/15/19 21:00 PE: per resident's note CBCD WBC 7.0 K/mm3 (4.0-10.0) 10/16/19 06:20 RBC 3.05 M/mm3 (4.00-5.60) L 10/16/19 06:20 Hgb 8.9 GM/dL (11.7-16.9) L 10/16/19 06:20 Hct 26.9 % (35.4-49) L 10/16/19 06:20 MCV 88.2 fl (80-96) 10/16/19 06:20 MCHC 33.3 g/dl (32.0-35.9) 10/16/19 06:20 RDW 17.2 % (11.9-15.9) H 10/16/19 06:20 Plt Count 85 K/MM3 (134-434) L 10/16/19 06:20 MPV 8.4 fl (7.5-11.1) 10/16/19 06:20 CMP Sodium 143 mmol/L (136-145) 10/16/19 06:20 Potassium 3.8 mmol/L (3.5-5.1) 10/16/19 06:20 Chloride 100 mmol/L (98-107) 10/16/19 06:20 Carbon Dioxide 39 mmol/L (21-32) H 10/16/19 06:20 Anion Gap 3 MMOL/L (8-16) L 10/16/19 06:20 BUN 56.5 mg/dL (7-18) H 10/16/19 06:20 Creatinine 2.3 mg/dL (0.55-1.3) H 10/16/19 06:20 Random Glucose 74 mg/dL (74-106) 10/16/19 06:20 Calcium 8.0 mg/dL (8.5-10.1) L 10/16/19 06:20 Total Bilirubin 1.7 mg/dL (0.2-1) H 10/16/19 06:20 AST 20 U/L (15-37) 10/16/19 06:20 ALT 7 U/L (13-61) L 10/16/19 06:20 Alkaline Phosphatase 53 U/L (45-117) 10/16/19 06:20 Total Protein 5.6 g/dl (6.4-8.2) L 10/16/19 06:20 Albumin 2.9 g/dl (3.4-5.0) L 10/16/19 06:20 CARDIAC ENZYMES Creatine Kinase 74 U/L (26-308) 10/13/19 00:10 Troponin I < 0.02 ng/ml (0.00-0.05) 10/13/19 00:10 Current Medications Generic Name Dose Route Start Last Admin Trade Name Freq PRN Reason Stop Dose Admin Albuterol Sulfate 1 amp 10/16/19 09:50 Ventolin 0.083% Nebulizer Soln - NEB Q6H PRN SHORT OF BREATH/WHEEZING Albuterol/Ipratropium 1 amp 10/16/19 10:00 Duoneb - NEB RTID RANJAN Amlodipine Besylate 10 mg 10/13/19 10:30 10/16/19 09:52 Norvasc - PO 10 mg DAILY RANJAN Administration Atorvastatin Calcium 80 mg 10/13/19 22:00 10/15/19 21:43 Lipitor - PO 80 mg HS RANJAN Administration Budesonide/Formoterol Fumarate 1 puff 10/13/19 10:00 10/15/19 21:44 Symbicort 160/4.5mcg - IH 1 puff BID RANJAN Administration Carbidopa/Levodopa 1.5 combo 10/13/19 06:00 10/16/19 05:18 Sinemet *Cr* 50/200 - PO 1.5 combo TID RANJAN Administration Carvedilol 25 mg 10/13/19 10:30 10/16/19 09:52 Coreg - PO 25 mg BID RANAJN Administration Ferrous Gluconate 324 mg 10/15/19 13:40 10/16/19 09:00 Fergon - PO 324 mg TIDCM RANJAN Administration Furosemide 40 mg 10/13/19 16:00 10/16/19 05:18 Lasix Injection - IVPUSH 40 mg BID@0600,1400 [facility] Administration Hydralazine HCl 25 mg 10/13/19 10:30 10/16/19 09:52 Apresoline - PO 25 mg BID RANJAN Administration Insulin Aspart 1 vial 10/13/19 11:00 10/16/19 06:03 Novolog Vial Sliding Scale - SQ Not Given ACHS [facility] Protocol Non-Formulary Medication 5,000 unit 10/13/19 17:30 Ergocalciferol (Vitamin D2) [Vitamin D2] PO Tu@1000 [facility] Pantoprazole Sodium 40 mg 10/14/19 10:00 10/16/19 09:54 Protonix - PO 40 mg DAILY RANJAN Administration Polyethylene Glycol 17 gm 10/14/19 11:45 10/16/19 09:55 Miralax (For Daily Use) - PO 17 gm DAILY RANJAN Administration Ranolazine 500 mg 10/13/19 22:00 10/16/19 09:53 Ranexa - PO 500 mg BID RANJAN Administration Tamsulosin HCl 0.4 mg 10/13/19 08:30 10/16/19 07:38 Flomax - PO 0.4 mg DAILY@0830 [facility] Administration Home Medications Medication Instructions Recorded Amlodipine Besylate 10 mg PO DAILY 09/25/19 Apixaban [Eliquis] 2.5 mg PO BID 09/25/19 Atorvastatin Ca [Lipitor] 80 mg PO HS 09/25/19 Carvedilol 25 mg PO BID 09/25/19 Empagliflozin [Jardiance] 25 mg PO DAILY 09/25/19 Ergocalciferol (Vitamin D2) 5,000 unit PO WEEKLY 09/25/19 [Vitamin D2] Glimepiride 1 mg PO DAILY 09/25/19 Hydralazine HCl 25 mg PO BID 09/25/19 Pantoprazole Sodium 40 mg PO DAILY 09/25/19 Ranolazine [Ranexa -] 500 mg PO BID 09/25/19 Budesonide/Formeterol Fumarate 1 inh PO BID 09/26/19 [SYMBICORT 160/4.5mcg -] Carbidopa/Levodopa [Carbidopa-Levo 1.5 each PO TID 09/26/19 ER 50-200 Tab] Microbiology 10/13/19 01:03 Urine - Urine Yanes Urine Culture - Final NO GROWTH OBTAINED ASSESSMENT AND PLAN: This patient is an 84yom with Pmhx of HTN , HLD, CKD, CAD sp CABG x 2 vessels, carotid stenosis, CHF, Afib, Parkinson disease, prostate cancer on radiation therapy, COPD on 2 liters NC at home, possible ILD , recurrent pneumonias who presented with LE edema and hemoptysis and was found to have acute CHF # Acute on chronic diastolic CHF exacerbation: on IV lasix BID , cont coreg # Hemoptysis: resolved, Eliquis is on hold # Acute on chronic anemia. 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 - resume po home iron # HTN: Norvasc , coreg, and HZN continue . # DM : SSI #Recent hx of urinary retention, now hemauria . probably traumatic form yanes . has h/o prostate cancer, on Flomax continue # h/o A fib: agree with card that AC is high risk fro bleeding. cont coreg . hold eliquis - dc yanes if possible in am
--- NOTE | 2019-10-16 10:52 | PN ---
Progress Note, Physician Chief Complaint: Events noted Feels better History of Present Illness: Patient was seen and examined. Awake and alert. Chart was reviewed Denies chest pain or palpitations Less SOB - Current Medication List Current Medications: Active Medications Albuterol Sulfate (Ventolin 0.083% Nebulizer Soln -) 1 amp NEB Q6H PRN PRN Reason: SHORT OF BREATH/WHEEZING Albuterol/Ipratropium (Duoneb -) 1 amp NEB RTID [facility] Amlodipine Besylate (Norvasc -) 10 mg PO DAILY [facility] Last Admin: 10/16/19 09:52 Dose: 10 mg Documented by: Atorvastatin Calcium (Lipitor -) 80 mg PO HS [facility] Last Admin: 10/15/19 21:43 Dose: 80 mg Documented by: Budesonide/Formoterol Fumarate (Symbicort 160/4.5mcg -) 1 puff IH BID [facility] Last Admin: 10/15/19 21:44 Dose: 1 puff Documented by: Carbidopa/Levodopa (Sinemet *Cr* 50/200 -) 1.5 combo PO TID [facility] Last Admin: 10/16/19 05:18 Dose: 1.5 combo Documented by: Carvedilol (Coreg -) 25 mg PO BID [facility] Last Admin: 10/16/19 09:52 Dose: 25 mg Documented by: Ferrous Gluconate (Fergon -) 324 mg PO TIDCM [facility] Last Admin: 10/16/19 09:00 Dose: 324 mg Documented by: Furosemide (Lasix Injection -) 40 mg IVPUSH BID@0600,1400 [facility] Last Admin: 10/16/19 05:18 Dose: 40 mg Documented by: Hydralazine HCl (Apresoline -) 25 mg PO BID [facility] Last Admin: 10/16/19 09:52 Dose: 25 mg Documented by: Insulin Aspart (Novolog Vial Sliding Scale -) 1 vial SQ ACHS [facility]; Protocol Last Admin: 10/16/19 06:03 Dose: Not Given Documented by: Non-Formulary Medication (Ergocalciferol (Vitamin D2) [Vitamin D2]) 5,000 unit PO Tu@1000 [facility] Pantoprazole Sodium (Protonix -) 40 mg PO DAILY [facility] Last Admin: 10/16/19 09:54 Dose: 40 mg Documented by: Polyethylene Glycol (Miralax (For Daily Use) -) 17 gm PO DAILY [facility] Last Admin: 10/16/19 09:55 Dose: 17 gm Documented by: Ranolazine (Ranexa -) 500 mg PO BID [facility] Last Admin: 10/16/19 09:53 Dose: 500 mg Documented by: Tamsulosin HCl (Flomax -) 0.4 mg PO DAILY@0830 [facility] Last Admin: 10/16/19 07:38 Dose: 0.4 mg Documented by: - Objective Vital Signs: Vital Signs Temperature 97.9 F 10/16/19 09:59 Pulse Rate 65 10/16/19 09:59 Respiratory Rate 10/16/19 09:59 Blood Pressure 150/51 L 10/16/19 09:59 O2 Sat by Pulse Oximetry (%) 99 10/15/19 21:00 Neck: Yes: Supple Cardiovascular: Yes: Regular Rate and Rhythm, S1, S2 Respiratory: Yes: Diminished Gastrointestinal: Yes: Normal Bowel Sounds, Soft. No: Tenderness Edema: No Additional Findings/Remarks: - Review of Systems Constitutional: denies: Weakness. denies: Chills, Fever Cardiovascular: denies: Chest Pain, Palpitations, (+) Shortness of Breath Respiratory: denies: Cough, Hemoptysis, Orthopnea, PND, (+) SOB, SOB on Exertion Gastrointestinal: denies: Abdominal Pain, Constipation, Diarrhea, Melena, Nausea, Rectal Bleeding, Vomiting Genitourinary: denies: Dysuria, Hematuria Neurological: denies: Weakness. denies: Dizziness, Headache, Seizure, Syncope Labs: CBC, BMP 10/16/19 06:20 10/16/19 06:20 INR, PTT INR 2.11 (0.83-1.09) H 10/13/19 00:10 Problem List - Problems (1) HTN (hypertension) Code(s): I10 - ESSENTIAL (PRIMARY) HYPERTENSION (2) Hypercholesterolemia Code(s): E78.00 - PURE HYPERCHOLESTEROLEMIA, UNSPECIFIED (3) Acute on chronic diastolic (congestive) heart failure Code(s): I50.33 - ACUTE ON CHRONIC DIASTOLIC (CONGESTIVE) HEART FAILURE (4) Anemia Code(s): D64.9 - ANEMIA, UNSPECIFIED Qualifiers: Anemia type: unspecified type Qualified Code(s): D64.9 - Anemia, unspecified (5) PAF (paroxysmal atrial fibrillation) Code(s): I48.0 - PAROXYSMAL ATRIAL FIBRILLATION (6) S/P CABG (coronary artery bypass graft) Code(s): Z95.1 - PRESENCE OF AORTOCORONARY BYPASS GRAFT (7) CHF (congestive heart failure) Code(s): I50.9 - HEART FAILURE, UNSPECIFIED Qualifiers: Heart failure type: unspecified Heart failure chronicity: acute on chronic Qualified Code(s): I50.9 - Heart failure, unspecified (8) DM Diabetes mellitus Code(s): E11.9 - TYPE 2 DIABETES MELLITUS WITHOUT COMPLICATIONS (9) ILD (interstitial lung disease) Code(s): J84.9 - INTERSTITIAL PULMONARY DISEASE, UNSPECIFIED (10) Renal insufficiency Code(s): N28.9 - DISORDER OF KIDNEY AND URETER, UNSPECIFIED (11) COPD exacerbation Code(s): J44.1 - CHRONIC OBSTRUCTIVE PULMONARY DISEASE W (ACUTE) EXACERBATION Assessment/Plan 1. Acute on chronic LV failure 2. CAD s/p CABG, angina pectoris 3. HTN 4. Hypercholesterolemia 5. Paroxysmal Atrial fibrillation 6. COPD and ILD 7. Acute on CKD 8. Carotid stenosis s/p CEA (left) 9. PAD 10. Parkinson's PLAN: 1. Diuretics - Lasix 40 mg IV BID and monitor renal function and electrolytes 2. Continue Carvedilol 25 mg BID, Hydralazine 25 mg BID and Amlodipine 10 mg QD. Currently not on Losartan. Resume when renal function stabilizes 3. Ranexa 500 mg BID 4. Atorvastatin 80 mg QHS 5. Currently not on anticoagulation with high bleeding risk. Possible NELY closure may be considered in the future if patient is not going to be candidate for terminologist anticoagulation Further plans are to follow Mahin Munoz MD
[2019-10-16] MEDS: ALBUTEROL SO4 2.5/IPRATROPIUM 0.5 INH SOL 3 ML VIAL.NEB. NEB SCH ×3 (12:05→20:00)
--- NOTE | 2019-10-16 16:01 | CON.GI ---
Consult Consult Specialty:: Gastroenterology ( covering Dr Hernandez) Referred by:: Dr Albarado Reason for Consultation:: Anemia - History of Present Illness Chief Complaint: Hemoptysis History of Present Illness: 84M admitted with hemoptysis is found to have Hb 5.6. It was 7.4 when discharged on 09/30. He takes Eliquis for paroxysmal a fib. he is confused so this history is obtained from the son Alban , the and [facility]. [facility] revealed that Erin last had an EGD and a colonoscopy here in [address] Gardner. He was found to have a friable gastric polyp that on biopsies revealed it was an adenoma with low grade dysplasia. Smaller antral polyps revealed intestinal metaplasia and an esophageal polyp was nondiagnostic. Colon adenomas were also removed. I asked the son whether his father ever had a endoscopic ultrasound or either an endoscopic or surgical resection of this polyp. He is now aware of any further interventions since then. - History Source History Provided By: Family Member (son Alban and ) Limitations to Obtaining History: Poor Historian (confused) - Past Medical History Cardio/Vascular: Yes: AFIB (paroxysmal), CAD, CHF (diastolic), HTN, Mitral Insufficiency (and TR), Pulmonary Hypertension, Other (severe peripheral vascular disease) Pulmonary: Yes: Bronchitis, COPD, O2 Dependent, Pneumonia Gastrointestinal: Yes: Other (EGD 2015 gastric adenoma with low grade dysplasia, colon adenomas removed 2015- Dr Gardner) Renal/: Yes: Renal Inusuff Heme/Onc: Yes: Anemia (of chronic blood loss) Endocrine: Yes: Diabetes Mellitus - Past Surgical History Past Surgical History: Yes: CABG (2009 [facility] [place]), Carotid Endarterectomy (left), Colonoscopy, Upper Endoscopy - Alcohol/Substance Use Hx Alcohol Use: Yes (rare) History of Substance Use: reports: None - Smoking History Smoking history: Former smoker Have you smoked in the past 12 months: No Aproximately how many cigarettes per day: 0 If you are a former smoker, when did you quit?: 1986 - Social History Usual Living Arrangement: With Spouse ADL: Family Assistance 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 (year[place] age 39 History of Recent Travel: No Home Medications - Allergies Allergies/Adverse Reactions: Allergies Allergy/AdvReac Type Severity Reaction Status Date / Time No Known Allergies Allergy Verified 10/12/19 23:07 - Home Medications Home Medications: Ambulatory Orders Amlodipine Besylate 10 mg PO DAILY 09/25/19 Apixaban [Eliquis] 2.5 mg PO BID 09/25/19 Atorvastatin Ca [Lipitor] 80 mg PO HS 09/25/19 Carvedilol 25 mg PO BID 09/25/19 Empagliflozin [Jardiance] 25 mg PO DAILY 09/25/19 Ergocalciferol (Vitamin D2) [Vitamin D2] 5,000 unit PO WEEKLY 09/25/19 Glimepiride 1 mg PO DAILY 09/25/19 Hydralazine HCl 25 mg PO BID 09/25/19 Pantoprazole Sodium 40 mg PO DAILY 09/25/19 Ranolazine [Ranexa -] 500 mg PO BID 09/25/19 Budesonide/Formeterol Fumarate [SYMBICORT 160/4.5mcg -] 1 inh PO BID 09/26/19 Carbidopa/Levodopa [Carbidopa-Levo ER 50-200 Tab] 1.5 each PO TID 09/26/19 Family Medical History Family Hx Cancer: Daughter ( of lymphoma), Sister (breast cancer) Other Family History: mother lived to [facility] in [place] Review of Systems Unable to obtain ROS, reason: confused Physical Exam-GI Vital Signs: Vital Signs Temperature 97.8 F 10/16/19 14:49 Pulse Rate 63 10/16/19 14:49 Respiratory Rate 16 10/16/19 14:49 Blood Pressure 139/53 L 10/16/19 14:49 O2 Sat by Pulse Oximetry (%) 99 10/16/19 09:00 CBC,CMP WBC 7.0 K/mm3 (4.0-10.0) 10/16/19 06:20 RBC 3.05 M/mm3 (4.00-5.60) L 10/16/19 06:20 Hgb 8.9 GM/dL (11.7-16.9) L 10/16/19 06:20 Hct 26.9 % (35.4-49) L 10/16/19 06:20 MCV 88.2 fl (80-96) 10/16/19 06:20 MCH 29.4 pg (25.7-33.7) 10/16/19 06:20 MCHC 33.3 g/dl (32.0-35.9) 10/16/19 06:20 RDW 17.2 % (11.9-15.9) H 10/16/19 06:20 Plt Count 85 K/MM3 (134-434) L 10/16/19 06:20 MPV 8.4 fl (7.5-11.1) 10/16/19 06:20 Absolute Neuts (auto) 5.8 K/mm3 (1.5-8.0) 10/16/19 06:20 Neutrophils % 82.8 % (42.8-82.8) 10/16/19 06:20 Lymphocytes % 4.7 % (8-40) L D 10/16/19 06:20 Monocytes % 10.8 % (3.8-10.2) H 10/16/19 06:20 Eosinophils % 1.4 % (0-4.5) 10/16/19 06:20 Basophils % 0.3 % (0-2.0) 10/16/19 06:20 Nucleated RBC % 0 % (0-0) 10/16/19 06:20 Haptoglobin 88 mg/dL (38-329) 10/13/19 20:39 Sodium 143 mmol/L (136-145) 10/16/19 06:20 Potassium 3.8 mmol/L (3.5-5.1) 10/16/19 06:20 Chloride 100 mmol/L (98-107) 10/16/19 06:20 Carbon Dioxide 39 mmol/L (21-32) H 10/16/19 06:20 Anion Gap 3 MMOL/L (8-16) L 10/16/19 06:20 BUN 56.5 mg/dL (7-18) H 10/16/19 06:20 Creatinine 2.3 mg/dL (0.55-1.3) H 10/16/19 06:20 Est GFR (CKD-EPI)AfAm 29.34 10/16/19 06:20 Est GFR (CKD-EPI)NonAf 25.31 10/16/19 06:20 POC Glucometer 100 UNITS (80-120) 10/16/19 11:57 Random Glucose 74 mg/dL (74-106) 10/16/19 06:20 Calcium 8.0 mg/dL (8.5-10.1) L 10/16/19 06:20 Phosphorus 3.2 mg/dL (2.5-4.9) 10/16/19 06:20 Magnesium 2.6 mg/dL (1.8-2.4) H 10/16/19 06:20 Iron 32 ug/dL (50-175) L 10/15/19 06:47 TIBC 203 ug/dL (250-450) L 10/15/19 06:47 Iron Saturation 15 % (17.5-39) L 10/15/19 06:47 Unsaturated IBC 171 ug/dL (200-275) L 10/15/19 06:47 Ferritin 51.3 ng/ml (8-388) 10/15/19 06:47 Total Bilirubin 1.7 mg/dL (0.2-1) H 10/16/19 06:20 AST 20 U/L (15-37) 10/16/19 06:20 ALT 7 U/L (13-61) L 10/16/19 06:20 Alkaline Phosphatase 53 U/L (45-117) 10/16/19 06:20 LD Total 205 U/L (87-246) 10/13/19 20:39 Creatine Kinase 74 U/L (26-308) 10/13/19 00:10 Troponin I < 0.02 ng/ml (0.00-0.05) 10/13/19 00:10 B-Natriuretic Peptide 91301.6 pg/ml (5-450) H 10/13/19 00:10 Total Protein 5.6 g/dl (6.4-8.2) L 10/16/19 06:20 Albumin 2.9 g/dl (3.4-5.0) L 10/16/19 06:20 Current Medications Generic Name Dose Route Start Last Admin Trade Name Freq PRN Reason Stop Dose Admin Albuterol Sulfate 1 amp 10/16/19 09:50 Ventolin 0.083% Nebulizer Soln - NEB Q6H PRN SHORT OF BREATH/WHEEZING Albuterol/Ipratropium 1 amp 10/16/19 10:00 10/16/19 14:30 Duoneb - NEB 1 amp RTID [facility] Administration Amlodipine Besylate 10 mg 10/13/19 10:30 10/16/19 09:52 Norvasc - PO 10 mg DAILY [facility] Administration Atorvastatin Calcium 80 mg 10/13/19 22:00 10/15/19 21:43 Lipitor - PO 80 mg HS [facility] Administration Budesonide/Formoterol Fumarate 1 puff 10/13/19 10:00 10/16/19 10:12 Symbicort 160/4.5mcg - IH 1 puff BID [facility] Administration Carbidopa/Levodopa 1.5 combo 10/13/19 06:00 10/16/19 05:18 Sinemet *Cr* 50/200 - PO 1.5 combo TID [facility] Administration Carvedilol 25 mg 10/13/19 10:30 10/16/19 09:52 Coreg - PO 25 mg BID [facility] Administration Ferrous Gluconate 324 mg 10/15/19 13:40 10/16/19 12:14 Fergon - PO 324 mg TIDCM [facility] Administration Furosemide 40 mg 10/13/19 16:00 10/16/19 14:55 Lasix Injection - IVPUSH 40 mg BID@0600,1400 [facility] Administration Hydralazine HCl 25 mg 10/13/19 10:30 10/16/19 09:52 Apresoline - PO 25 mg BID [facility] Administration Insulin Aspart 1 vial 10/13/19 11:00 10/16/19 12:44 Novolog Vial Sliding Scale - SQ Not Given ACHS [facility] Protocol Non-Formulary Medication 5,000 unit 10/13/19 17:30 Ergocalciferol (Vitamin D2) [Vitamin D2] PO Tu@1000 [facility] Pantoprazole Sodium 40 mg 10/14/19 10:00 10/16/19 09:54 Protonix - PO 40 mg DAILY [facility] Administration Polyethylene Glycol 17 gm 10/14/19 11:45 10/16/19 09:55 Miralax (For Daily Use) - PO 17 gm DAILY [facility] Administration Ranolazine 500 mg 10/13/19 22:00 10/16/19 09:53 Ranexa - PO 500 mg BID [facility] Administration Tamsulosin HCl 0.4 mg 10/13/19 08:30 10/16/19 07:38 Flomax - PO 0.4 mg DAILY@0830 [facility] Administration Constitutional: Yes: No Distress Eyes: Yes: Conjunctiva Clear HENT: Yes: Normocephalic Neck: Yes: Trachea Midline Cardiovascular: Yes: Regular Rate and Rhythm, Murmur (2/6 ILEANA), Other (healed median sternotomy incision) Gastrointestinal Inspection: Yes: WNL, Distention ...Auscultate: Yes: Hypoactive Bowel Sounds ...Palpate: Yes: Soft, Other (nontender reducible left inguinal hernia) ...Percussion: Yes: Tympanitic ...Rectal Exam: Yes: Guaiac Positive (dark brown strongly guaiac positive stool) Edema: No Neurological: Yes: Confusion Labs: CBC, BMP 10/16/19 06:20 10/16/19 06:20 INR, PTT INR 2.11 (0.83-1.09) H 10/13/19 00:10 Laboratory Tests 03/04/11 05/01/11 05/04/11 12:17 21:00 05:30 Hgb 12.4 8.3 L* 12.2 D 11/23/12 01/26/13 04/21/14 12:23 05:35 06:00 Hgb 12.9 D 11.6 L 10.9 L 09/29/14 10/01/19 10/13/19 06:00 06:25 00:10 Hgb 6.4 L* D 7.4 L 5.8 L* 10/16/19 06:20 Hgb 8.9 L Problem List - Problems (1) Occult blood in stools Code(s): R19.5 - OTHER FECAL ABNORMALITIES (2) Gastric adenoma Code(s): D13.1 - BENIGN NEOPLASM OF STOMACH (3) Gastric dysplasia Code(s): Q40.3 - CONGENITAL MALFORMATION OF STOMACH, UNSPECIFIED (4) Anemia due to chronic blood loss Code(s): D50.0 - IRON DEFICIENCY ANEMIA SECONDARY TO BLOOD LOSS (CHRONIC) (5) Hemoptysis Code(s): R04.2 - HEMOPTYSIS (6) Peripheral vascular disease Code(s): I73.9 - PERIPHERAL VASCULAR DISEASE, UNSPECIFIED (7) Pulmonary hypertension Code(s): I27.20 - PULMONARY HYPERTENSION, UNSPECIFIED (8) Anemia Code(s): D64.9 - ANEMIA, UNSPECIFIED Qualifiers: Anemia type: unspecified type Qualified Code(s): D64.9 - Anemia, unspecified (9) HTN (hypertension) Code(s): I10 - ESSENTIAL (PRIMARY) HYPERTENSION (10) Hypercholesterolemia Code(s): E78.00 - PURE HYPERCHOLESTEROLEMIA, UNSPECIFIED (11) PAF (paroxysmal atrial fibrillation) Code(s): I48.0 - PAROXYSMAL ATRIAL FIBRILLATION (12) S/P CABG (coronary artery bypass graft) Code(s): Z95.1 - PRESENCE OF AORTOCORONARY BYPASS GRAFT (13) DM Diabetes mellitus Code(s): E11.9 - TYPE 2 DIABETES MELLITUS WITHOUT COMPLICATIONS (14) ILD (interstitial lung disease) Code(s): J84.9 - INTERSTITIAL PULMONARY DISEASE, UNSPECIFIED (15) Acute hypoxemic respiratory failure Code(s): J96.01 - ACUTE RESPIRATORY FAILURE WITH HYPOXIA (16) COPD exacerbation Code(s): J44.1 - CHRONIC OBSTRUCTIVE PULMONARY DISEASE W (ACUTE) EXACERBATION Assessment/Plan Impression: - Although the acute blood loss is likely hemoptysis aggravated by Eliqquis I am concerned that he has chornic GI losses form 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 I discussed this with the son Alban and Erin's . I explained that he would best be served by having his next endoscopy at at center that can do endoscopic ultrasound and endoscopic sub mucosal or subserosal resection of this lesion. This can be done by Dr Gabrielle Bradford at [facility] where Dr Krystal Orlando his PMD has privileges. I advised that he pursue this BRENDA after discharged. Dr Bradford can also determine whether or nor to repeat a colonoscopy. Alban and his mother are in agreement. I gave her my card so that Dr. Orlando can call me. - Personal h/o colon adenomas Plan: -- Pursue EGD, EUS and endoscopic resection of gastric adenoma with dyspklasia or perhaps malignancy BRENDA after discharge. If hemorrhage ensues then interventional EGD would be undertaken while here. -- Empiric PPI therapy Dr Hernandez will be covering the [facility] service tomorrow
--- NOTE | 2019-10-16 16:29 | PN ---
Physical Exam: SUBJECTIVE: Overnight, pt got 1 blood transfusion. Repeat CBC showed Hgb 8.5. Patient seen and examined. No complaints. OBJECTIVE: Vital Signs Period Temp Pulse Resp BP Sys/Knutson Pulse Ox Last 24 Hr 97.8 F-98.6 F 61-65 16-22 127-150/43-53 99-99 GENERAL: The patient is awake, alert, and fully oriented, in no acute distress. HEENT: NT/ NC, sclera anicteric, conjunctiva clear. No ptosis. dry mucous membranes. LUNGS: wheezing b/l, no crackles, no accessory muscle use. HEART: Regular rate and rhythm, S1, S2 without murmur, rub or gallop. ABDOMEN: Soft, nontender, nondistended, normoactive bowel sounds, no guarding, no rebound EXTREMITIES: 1+ edema LE b/l NEUROLOGICAL: gait not observed. PSYCH: Normal mood, normal affect. SKIN: Warm, dry, normal turgor, no rashes or lesions noted Laboratory Results - last 24 hr 10/13/19 10/13/19 10/15/19 00:50 20:39 21:37 WBC RBC Hgb Hct MCV MCH MCHC RDW Plt Count MPV Absolute Neuts (auto) Neutrophils % Lymphocytes % Monocytes % Eosinophils % Basophils % Nucleated RBC % Haptoglobin 88 Sodium Potassium Chloride Carbon Dioxide Anion Gap BUN Creatinine Est GFR (CKD-EPI)AfAm Est GFR (CKD-EPI)NonAf POC Glucometer 97 Random Glucose Calcium Phosphorus Magnesium Total Bilirubin AST ALT Alkaline Phosphatase Total Protein Albumin Blood Type O NEGATIVE Antibody Screen Negative Crossmatch See Detail 10/16/19 10/16/19 10/16/19 02:15 06:02 06:20 WBC 7.3 7.0 RBC 2.84 L 3.05 L Hgb 8.5 L 8.9 L Hct 25.5 L D 26.9 L MCV 89.5 88.2 MCH 30.0 29.4 MCHC 33.5 33.3 RDW 17.0 H 17.2 H Plt Count 82 L 85 L MPV 8.8 8.4 Absolute Neuts (auto) 5.8 Neutrophils % 82.8 Lymphocytes % 4.7 L D Monocytes % 10.8 H Eosinophils % 1.4 Basophils % 0.3 Nucleated RBC % 0 Haptoglobin Sodium Potassium Chloride Carbon Dioxide Anion Gap BUN Creatinine Est GFR (CKD-EPI)AfAm Est GFR (CKD-EPI)NonAf POC Glucometer 67 Random Glucose Calcium Phosphorus Magnesium Total Bilirubin AST ALT Alkaline Phosphatase Total Protein Albumin Blood Type Antibody Screen Crossmatch 10/16/19 10/16/19 10/16/19 06:20 07:42 11:57 WBC RBC Hgb Hct MCV MCH MCHC RDW Plt Count MPV Absolute Neuts (auto) Neutrophils % Lymphocytes % Monocytes % Eosinophils % Basophils % Nucleated RBC % Haptoglobin Sodium 143 Potassium 3.8 Chloride 100 Carbon Dioxide 39 H Anion Gap 3 L BUN 56.5 H Creatinine 2.3 H Est GFR (CKD-EPI)AfAm 29.34 Est GFR (CKD-EPI)NonAf 25.31 POC Glucometer 113 100 Random Glucose 74 Calcium 8.0 L Phosphorus 3.2 Magnesium 2.6 H Total Bilirubin 1.7 H AST 20 ALT 7 L Alkaline Phosphatase 53 Total Protein 5.6 L Albumin 2.9 L Blood Type Antibody Screen Crossmatch Active Medications Generic Name Dose Route Start Last Admin Trade Name Freq PRN Reason Stop Dose Admin Albuterol Sulfate 1 amp 10/16/19 09:50 Ventolin 0.083% Nebulizer Soln - NEB Q6H PRN SHORT OF BREATH/WHEEZING Albuterol/Ipratropium 1 amp 10/16/19 10:00 10/16/19 14:30 Duoneb - NEB 1 amp RTID RANJAN Administration Amlodipine Besylate 10 mg 10/13/19 10:30 10/16/19 09:52 Norvasc - PO 10 mg DAILY [facility] Administration Atorvastatin Calcium 80 mg 10/13/19 22:00 10/15/19 21:43 Lipitor - PO 80 mg HS RANJAN Administration Budesonide/Formoterol Fumarate 1 puff 10/13/19 10:00 10/16/19 10:12 Symbicort 160/4.5mcg - IH 1 puff BID [facility]AN Administration Carbidopa/Levodopa 1.5 combo 10/13/19 06:00 10/16/19 05:18 Sinemet *Cr* 50/200 - PO 1.5 combo TID [facility] Administration Carvedilol 25 mg 10/13/19 10:30 10/16/19 09:52 Coreg - PO 25 mg BID [facility]AN Administration Ferrous Gluconate 324 mg 10/15/19 13:40 10/16/19 12:14 Fergon - PO 324 mg TIDCM [facility] Administration Furosemide 40 mg 10/13/19 16:00 10/16/19 14:55 Lasix Injection - IVPUSH 40 mg BID@0600,1400 [facility] Administration Hydralazine HCl 25 mg 10/13/19 10:30 10/16/19 09:52 Apresoline - PO 25 mg BID [facility] Administration Insulin Aspart 1 vial 10/13/19 11:00 10/16/19 12:44 Novolog Vial Sliding Scale - SQ Not Given [facility] Protocol Non-Formulary Medication 5,000 unit 10/13/19 17:30 Ergocalciferol (Vitamin D2) [Vitamin D2] PO Tu@1000 [facility] Pantoprazole Sodium 40 mg 10/14/19 10:00 10/16/19 09:54 Protonix - PO 40 mg DAILY [facility] Administration Polyethylene Glycol 17 gm 10/14/19 11:45 10/16/19 09:55 Miralax (For Daily Use) - PO 17 gm DAILY [facility] Administration Ranolazine 500 mg 10/13/19 22:00 10/16/19 09:53 Ranexa - PO 500 mg BID [facility] Administration Tamsulosin HCl 0.4 mg 10/13/19 08:30 10/16/19 07:38 Flomax - PO 0.4 mg DAILY@0830 [facility] Administration ASSESSMENT/PLAN: 84 YO M PMH COPD, afib, HTN, Diastolic CHF, Parkinsons, HLD, prostate cancer, COPD, DM, anemia, CAD (2008 CABG) p/w SOB, LE edema, nausea, & vomiting. Admitted for acute CHF exacerbation. #Acute on Chronic CHF exacerbation. -c/w furosemide 40 mg BID IV push -c/w carvedilol 25 mg PO BID (home dose) -c/w hydralazine 25 mg PO BID (home), # Hemoptysis -likely from pulmonary edema - eliquis was held #DM: ISS #HTN - c/w amlodipine 10 mg PO daily (home), carvedilol 25 mg PO BID (home) Cardio c/s appreciated. Will resume Losartan when renal status stabilizes #Anemia -Iron, TIBC, Iron sat, unsaturated IBC are low. Ferritin nml. MCV nml. Likely anemia of chronic disease -c/w ferrous gluconate -cardio c/s appreciated. IV Lasix after each blood transfusion, then PRN -h/o prostate cancer s/p radiation. 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 GI c/s appreciated. GI discussed need for endoscopy after d/c w/ pt's family w/ center that is able to perform"endoscopic ultrasound & sub- mucosal/serosal resection of possible gastric adenoma. Dr. Gabrielle Bradford at [facility] recommended. EGD intervention of hemorrhage occurs. -CEA was ordered. gastric cancer marker -c/w pantoprazole 40 mg PO daily # afib -H&H improved to 8.5/25.5 after 1 unit blood transfusion. Later H&H showed 8.9/26.9. Continue holding Eliquis -c/w carvedilol #urinary retention - c/w tamsulosin -hematuria likely from traumatic insertion -Trial void: yanes removed at 11: 10 AM. By 4 pm, pt had made more than 300 mL of urine. #CAD Atorvastatin 80 mg QHS Ranexa 500 mg BID #FEN No IV fluids Monitor BMP Na+ controlled diet #DISPO Maintain med surg Visit type - Emergency Visit Emergency Visit: Yes ED Registration Date: 10/13/19 Care time: The patient presented to the Emergency Department on the above date and was hospitalized for further evaluation of their emergent condition. - New Patient This patient is new to me today: No - Critical Care Critical Care patient: No - Medication Review Med list reviewed for High Risk Meds patients 65 and older: Yes ATTENDING PHYSICIAN STATEMENT I saw and evaluated the patient. I reviewed the resident's note and discussed the case with the resident. I agree with the resident's findings and plan as documented. SUBJECTIVE: OBJECTIVE: ASSESSMENT AND PLAN:
--- NOTE | 2019-10-16 17:09 | PN ---
Progress Note, Physician History of Present Illness: Pt seen and examined at bedside. He is awake and alert. He denies shortness of breath. - Current Medication List Current Medications: Active Medications Albuterol Sulfate (Ventolin 0.083% Nebulizer Soln -) 1 amp NEB Q6H PRN PRN Reason: SHORT OF BREATH/WHEEZING Albuterol/Ipratropium (Duoneb -) 1 amp NEB RTID [facility] Last Admin: 10/16/19 14:30 Dose: 1 amp Documented by: Amlodipine Besylate (Norvasc -) 10 mg PO DAILY [facility] Last Admin: 10/16/19 09:52 Dose: 10 mg Documented by: Atorvastatin Calcium (Lipitor -) 80 mg PO HS [facility] Last Admin: 10/15/19 21:43 Dose: 80 mg Documented by: Budesonide/Formoterol Fumarate (Symbicort 160/4.5mcg -) 1 puff IH BID [facility] Last Admin: 10/16/19 10:12 Dose: 1 puff Documented by: Carbidopa/Levodopa (Sinemet *Cr* 50/200 -) 1.5 combo PO TID [facility] Last Admin: 10/16/19 05:18 Dose: 1.5 combo Documented by: Carvedilol (Coreg -) 25 mg PO BID [facility] Last Admin: 10/16/19 09:52 Dose: 25 mg Documented by: Ferrous Gluconate (Fergon -) 324 mg PO TIDCM [facility] Last Admin: 10/16/19 12:14 Dose: 324 mg Documented by: Furosemide (Lasix Injection -) 40 mg IVPUSH BID@0600,1400 [facility] Last Admin: 10/16/19 14:55 Dose: 40 mg Documented by: Hydralazine HCl (Apresoline -) 25 mg PO BID [facility] Last Admin: 10/16/19 09:52 Dose: 25 mg Documented by: Insulin Aspart (Novolog Vial Sliding Scale -) 1 vial SQ ACHS [facility]; Protocol Last Admin: 10/16/19 12:44 Dose: Not Given Documented by: Non-Formulary Medication (Ergocalciferol (Vitamin D2) [Vitamin D2]) 5,000 unit PO Tu@1000 [facility] Pantoprazole Sodium (Protonix -) 40 mg PO DAILY [facility] Last Admin: 10/16/19 09:54 Dose: 40 mg Documented by: Polyethylene Glycol (Miralax (For Daily Use) -) 17 gm PO DAILY [facility] Last Admin: 10/16/19 09:55 Dose: 17 gm Documented by: Ranolazine (Ranexa -) 500 mg PO BID [facility] Last Admin: 10/16/19 09:53 Dose: 500 mg Documented by: Tamsulosin HCl (Flomax -) 0.4 mg PO DAILY@0830 [facility] Last Admin: 10/16/19 07:38 Dose: 0.4 mg Documented by: - Objective Vital Signs: Vital Signs Temperature 97.8 F 10/16/19 14:49 Pulse Rate 63 10/16/19 14:49 Respiratory Rate 16 10/16/19 14:49 Blood Pressure 139/53 L 10/16/19 14:49 O2 Sat by Pulse Oximetry (%) 99 10/16/19 09:00 Constitutional: Yes: Calm Eyes: Yes: Conjunctiva Clear HENT: Yes: Atraumatic Neck: Yes: Supple Cardiovascular: Yes: S1, S2 Respiratory: Yes: CTA Bilaterally Gastrointestinal: Yes: Soft Genitourinary: Yes: WNL Musculoskeletal: Yes: WNL Edema: No Neurological: Yes: Oriented Psychiatric: Yes: Oriented Labs: CBC, BMP 10/16/19 06:20 10/16/19 06:20 INR, PTT INR 2.11 (0.83-1.09) H 10/13/19 00:10 Assessment/Plan Current Medications Generic Name Dose Route Start Last Admin Trade Name Freq PRN Reason Stop Dose Admin Albuterol Sulfate 1 amp 10/16/19 09:50 Ventolin 0.083% Nebulizer Soln - NEB Q6H PRN SHORT OF BREATH/WHEEZING Albuterol/Ipratropium 1 amp 10/16/19 10:00 10/16/19 14:30 Duoneb - NEB 1 amp RTID [facility] Administration Amlodipine Besylate 10 mg 10/13/19 10:30 10/16/19 09:52 Norvasc - PO 10 mg DAILY [facility] Administration Atorvastatin Calcium 80 mg 10/13/19 22:00 10/15/19 21:43 Lipitor - PO 80 mg HS [facility] Administration Budesonide/Formoterol Fumarate 1 puff 10/13/19 10:00 10/16/19 10:12 Symbicort 160/4.5mcg - IH 1 puff BID [facility] Administration Carbidopa/Levodopa 1.5 combo 10/13/19 06:00 10/16/19 05:18 Sinemet *Cr* 50/200 - PO 1.5 combo TID [facility] Administration Carvedilol 25 mg 10/13/19 10:30 10/16/19 09:52 Coreg - PO 25 mg BID [facility] Administration Ferrous Gluconate 324 mg 10/15/19 13:40 10/16/19 12:14 Fergon - PO 324 mg TIDCM [facility] Administration Furosemide 40 mg 10/13/19 16:00 10/16/19 14:55 Lasix Injection - IVPUSH 40 mg BID@0600,1400 [facility] Administration Hydralazine HCl 25 mg 10/13/19 10:30 10/16/19 09:52 Apresoline - PO 25 mg BID [facility] Administration Insulin Aspart 1 vial 10/13/19 11:00 10/16/19 12:44 Novolog Vial Sliding Scale - SQ Not Given ACHS [facility] Protocol Non-Formulary Medication 5,000 unit 10/13/19 17:30 Ergocalciferol (Vitamin D2) [Vitamin D2] PO Tu@1000 [facility] Pantoprazole Sodium 40 mg 10/14/19 10:00 10/16/19 09:54 Protonix - PO 40 mg DAILY [facility] Administration Polyethylene Glycol 17 gm 10/14/19 11:45 10/16/19 09:55 Miralax (For Daily Use) - PO 17 gm DAILY [facility] Administration Ranolazine 500 mg 10/13/19 22:00 10/16/19 09:53 Ranexa - PO 500 mg BID [facility] Administration Tamsulosin HCl 0.4 mg 10/13/19 08:30 10/16/19 07:38 Flomax - PO 0.4 mg DAILY@0830 [facility] Administration Impression 1. ckd 2. anemia 3. urinary obstruction 4. hemoptysis 5. chf 6. cad 7. htn 8. a-fib Plan - repeat labs in am - cont iron supplements - anca and gbm neg - cont current meds - pulm follow up
[2019-10-16] MEDS: ATORVASTATIN CA 80 MG TABLET (FP) PO SCH (21:54)
[2019-10-17] MEDS ORDERED: MELATONIN 5 MG TABLETS PO ONE ×3 (02:00→22:54)
[2019-10-17] MEDS: FUROSEMIDE 40 MG/4 ML INJECTABLE VIAL IVPUSH SCH ×2 (05:21→14:07)
[2019-10-17] MEDS: INSULIN SLIDING SCALE (NOVOLOG) 1 VIAL SQ SCH ×4 (06:20→21:17)
[2019-10-17 07:38] LABS: BASO % 0.3 % (0-2.0); HEMATOCRIT 25.9 % (35.4-49); HEMOGLOBIN 8.7 GM/dL (11.7-16.9); LYMPH % 4.7 % (8-40); MCH 29.6 pg (25.7-33.7); MCHC 33.6 g/dl (32.0-35.9); MEAN PLT VOLUME 8.3 fl (7.5-11.1); MONO % 9.5 % (3.8-10.2); NEUT % 84.5 % (42.8-82.8); PLATELET COUNT 88 K/MM3 (134-434); RBC 2.94 M/mm3 (4.00-5.60); RDW 18.2 % (11.9-15.9); RETICULOCYTES 3.29 % (0.5-1.5); WHITE BLOOD COUNT 6.2 K/mm3 (4.0-10.0)
[2019-10-17 08:01] LABS: ALBUMIN 2.9 g/dl (3.4-5.0); BILIRUBIN,TOTAL 1.6 mg/dL (0.2-1); BLOOD UREA NITROGEN 50.2 mg/dL (7-18); CALCIUM 8.1 mg/dL (8.5-10.1); CREATININE 2.1 mg/dL (0.55-1.3); MAGNESIUM 2.5 mg/dL (1.8-2.4); PHOSPHOROUS 2.9 mg/dL (2.5-4.9); TOT PROT 5.3 g/dl (6.4-8.2)
[2019-10-17] MEDS: ALBUTEROL SO4 2.5/IPRATROPIUM 0.5 INH SOL 3 ML VIAL.NEB. NEB SCH ×3 (09:10→20:37)
[2019-10-17] MEDS: TAMSULOSIN HCL 0.4 MG CAP PO SCH (09:15)
[2019-10-17] MEDS: FERROUS GLUCONATE 324 MG TAB (FP) PO SCH ×3 (09:15→17:35)
[2019-10-17] MEDS: hydrALAZINE HCL 25 MG TABLET (FP) PO SCH ×2 (09:26→21:18)
[2019-10-17] MEDS: amLODIPine BESYLATE 10 MG TABLET (FP) PO SCH (09:27)
[2019-10-17] MEDS: CARVEDILOL 25 MG TABLET (FP) PO SCH ×2 (09:27→21:17)
[2019-10-17] MEDS: POLYETHYLENE GLYCOL 3350 119 GM BTL PO SCH (09:27)
[2019-10-17] MEDS: PANTOPRAZOLE 40 MG TABLET PO SCH ×2 (09:27→21:17)
[2019-10-17] MEDS: BUDESONIDE/FORMETEROL FUMARATE 160/4.5 mcg INHALER IH SCH ×2 (09:28→21:18)
[2019-10-17] MEDS: RANOLAZINE E.R. 500 MG TABLET (FP) PO SCH ×2 (09:28→21:18)
--- NOTE | 2019-10-17 10:00 | PN ---
Progress Note, Physician History of Present Illness: SUBJECTIVE: This is an 84 year old man with a history of HTN, hyperlipidemia, CAD, CABG, CHF (diatolic) , Paroxysmal atrial fib, chronic hypoxic respiratory failure, COPD, ILD, CKD, Parkinson disease who comes to the ED complaining of SOB, coughing up blood, nausea and vomiting, and worsening leg swelling. Since last visit 09/20/2019, had been admitted 09/24 for hemoptysis and COPD exacerb ation. During the hospitalization, he had ANÍBAL and urinary retention requiring a Sandoval catheter which was removed prior to discharge. Lasix and Cozaar were held because of ANÍBAL. He was discharged on 09/30 on a prednisone taper. Pt has started seeing ?blood in mouth, unable to eat and SOB. In ER :Found to have Hb 5.7, negative Trop, elevated BNP 10/13: restless overnight; no acute cardiac events; seen by nephro 10/14: Denies chest pain, dyspnea or LE edema, hematuria and hemoptysis resolved 10/15: Denies chest pain or palpitations, less SOB 10/16: Resting comfortably, denies chest pain, dyspnea or palpitations PAST MEDICAL HISTORY: HTN, CHF, DM, COPD, CAD s/p CABG 2008, recurrent PNA (2 L home o2), a fib, parkinson's disease, prostate cancer, HLD, Gastric and Colon polyps, Asthma, Anemia;GIB PAD: Bilateral iliac ,severe Rt SFA, severe Lt EIA,MANAGER LINE and SFA R>L ICA stenosis no plans for angio in future; Echo 05/24 Nl EF, grade II diastolic dysfunction Cath 2010 patent WEN>LAD, SVG>LPL, RI Orthostatic Hypotension Chest Pain Syndrome PAST SURGICAL HISTORY: CABG 2009 Carotid endartectomy: left - Current Medication List Current Medications: Active Medications Albuterol Sulfate (Ventolin 0.083% Nebulizer Soln -) 1 amp NEB Q6H PRN PRN Reason: SHORT OF BREATH/WHEEZING Albuterol/Ipratropium (Duoneb -) 1 amp NEB RTID [facility] Last Admin: 10/17/19 09:10 Dose: 1 amp Documented by: Amlodipine Besylate (Norvasc -) 10 mg PO DAILY [facility] Last Admin: 10/17/19 09:27 Dose: 10 mg Documented by: Atorvastatin Calcium (Lipitor -) 80 mg PO HS [facility] Last Admin: 10/16/19 21:54 Dose: 80 mg Documented by: Budesonide/Formoterol Fumarate (Symbicort 160/4.5mcg -) 1 puff IH BID [facility] Last Admin: 10/17/19 09:28 Dose: 1 puff Documented by: Carbidopa/Levodopa (Sinemet *Cr* 50/200 -) 1.5 combo PO TID [facility] Last Admin: 10/17/19 05:20 Dose: 1.5 combo Documented by: Carvedilol (Coreg -) 25 mg PO BID [facility] Last Admin: 10/17/19 09:27 Dose: 25 mg Documented by: Ferrous Gluconate (Fergon -) 324 mg PO TIDCM [facility] Last Admin: 10/17/19 09:15 Dose: 324 mg Documented by: Furosemide (Lasix Injection -) 40 mg IVPUSH BID@0600,1400 [facility] Last Admin: 10/17/19 05:21 Dose: 40 mg Documented by: Hydralazine HCl (Apresoline -) 25 mg PO BID [facility] Last Admin: 10/17/19 09:26 Dose: 25 mg Documented by: Insulin Aspart (Novolog Vial Sliding Scale -) 1 vial SQ [facility]; Protocol Last Admin: 10/17/19 06:20 Dose: Not Given Documented by: Non-Formulary Medication (Ergocalciferol (Vitamin D2) [Vitamin D2]) 5,000 unit PO Tu@1000 [facility] Pantoprazole Sodium (Protonix -) 40 mg PO DAILY [facility] Last Admin: 10/17/19 09:27 Dose: 40 mg Documented by: Polyethylene Glycol (Miralax (For Daily Use) -) 17 gm PO DAILY [facility] Last Admin: 10/17/19 09:27 Dose: Not Given Documented by: Ranolazine (Ranexa -) 500 mg PO BID [facility] Last Admin: 10/17/19 09:28 Dose: 500 mg Documented by: Tamsulosin HCl (Flomax -) 0.4 mg PO DAILY@0830 [facility] Last Admin: 10/17/19 09:15 Dose: 0.4 mg Documented by: - Objective Vital Signs: Vital Signs Temperature 97.8 F 10/17/19 09:24 Pulse Rate 61 10/17/19 09:24 Respiratory Rate 20 10/17/19 09:24 Blood Pressure 147/53 L 07/15/20 09:24 O2 Sat by Pulse Oximetry (%) 97 10/17/19 09:24 Constitutional: Yes: No Distress, Calm, Thin Neck: Yes: Supple Cardiovascular: Yes: Regular Rate and Rhythm Respiratory: Yes: Diminished, On Nasal O2 Gastrointestinal: Yes: Soft, Hypoactive Bowel Sounds Edema: No Labs: CBC, BMP 10/17/19 07:00 10/17/19 07:00 INR, PTT INR 2.11 (0.83-1.09) H 10/13/19 00:10 Problem List - Problems (1) Acute on chronic diastolic (congestive) heart failure Code(s): I50.33 - ACUTE ON CHRONIC DIASTOLIC (CONGESTIVE) HEART FAILURE (2) Anemia Code(s): D64.9 - ANEMIA, UNSPECIFIED Qualifiers: Anemia type: unspecified type Qualified Code(s): D64.9 - Anemia, unspecified (3) PAF (paroxysmal atrial fibrillation) Code(s): I48.0 - PAROXYSMAL ATRIAL FIBRILLATION (4) S/P CABG (coronary artery bypass graft) Code(s): Z95.1 - PRESENCE OF AORTOCORONARY BYPASS GRAFT (5) DM Diabetes mellitus Code(s): E11.9 - TYPE 2 DIABETES MELLITUS WITHOUT COMPLICATIONS Assessment/Plan 1. Acute on chronic LV diastolic failure improving 2. CAD s/p CABG, angina pectoris 3. HTN 4. Hypercholesterolemia 5. Paroxysmal Atrial fibrillation 6. COPD and ILD 7. Acute on CKD 8. Carotid stenosis s/p CEA (left) 9. PAD 10. Parkinson's PLAN: 1. Decrease diuretics to Lasix 40 mg IV QD and monitor diuretic response, renal function and electrolytes 2. Continue Carvedilol 25 mg BID, Hydralazine 25 mg BID and Amlodipine 10 mg QD. Currently not on Losartan. Resume when renal function stabilizes 3. Ranexa 500 mg BID 4. Atorvastatin 80 mg QHS 5. Currently not on anticoagulation with high bleeding risk. Possible NELY closure may be considered in the future if patient is not going to be candidate for terminal manager anticoagulation 6. 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 If hemorrhage ensues then interventional EGD would be undertaken while here.
--- NOTE | 2019-10-17 11:47 | PN ---
Progress Note, Physician History of Present Illness: pulmonary alert,comfortable,no distress,-hemoptysis - Current Medication List Current Medications: Active Medications Albuterol Sulfate (Ventolin 0.083% Nebulizer Soln -) 1 amp NEB Q6H PRN PRN Reason: SHORT OF BREATH/WHEEZING Albuterol/Ipratropium (Duoneb -) 1 amp NEB RTID [facility] Last Admin: 10/17/19 09:10 Dose: 1 amp Documented by: Amlodipine Besylate (Norvasc -) 10 mg PO DAILY [facility] Last Admin: 10/17/19 09:27 Dose: 10 mg Documented by: Atorvastatin Calcium (Lipitor -) 80 mg PO HS [facility] Last Admin: 10/16/19 21:54 Dose: 80 mg Documented by: Budesonide/Formoterol Fumarate (Symbicort 160/4.5mcg -) 1 puff IH BID [facility] Last Admin: 10/17/19 09:28 Dose: 1 puff Documented by: Carbidopa/Levodopa (Sinemet *Cr* 50/200 -) 1.5 combo PO TID [facility] Last Admin: 10/17/19 05:20 Dose: 1.5 combo Documented by: Carvedilol (Coreg -) 25 mg PO BID [facility] Last Admin: 10/17/19 09:27 Dose: 25 mg Documented by: Ferrous Gluconate (Fergon -) 324 mg PO TIDCM [facility] Last Admin: 10/17/19 11:30 Dose: 324 mg Documented by: Furosemide (Lasix Injection -) 40 mg IVPUSH BID@0600,1400 [facility] Last Admin: 10/17/19 05:21 Dose: 40 mg Documented by: Hydralazine HCl (Apresoline -) 25 mg PO BID [facility] Last Admin: 10/17/19 09:26 Dose: 25 mg Documented by: Insulin Aspart (Novolog Vial Sliding Scale -) 1 vial SQ ACHS [facility]; Protocol Last Admin: 10/17/19 11:30 Dose: Not Given Documented by: Non-Formulary Medication (Ergocalciferol (Vitamin D2) [Vitamin D2]) 5,000 unit PO Tu@1000 [facility] Pantoprazole Sodium (Protonix -) 40 mg PO BID [facility] Polyethylene Glycol (Miralax (For Daily Use) -) 17 gm PO DAILY [facility] Last Admin: 10/17/19 09:27 Dose: Not Given Documented by: Ranolazine (Ranexa -) 500 mg PO BID [facility] Last Admin: 10/17/19 09:28 Dose: 500 mg Documented by: Tamsulosin HCl (Flomax -) 0.4 mg PO DAILY@0830 [facility] Last Admin: 10/17/19 09:15 Dose: 0.4 mg Documented by: - Objective Vital Signs: Vital Signs Temperature 97.8 F 10/17/19 09:24 Pulse Rate 61 10/17/19 09:24 Respiratory Rate 20 10/17/19 09:24 Blood Pressure 147/53 L 10/17/19 09:24 O2 Sat by Pulse Oximetry (%) 97 10/17/19 09:24 Constitutional: Yes: Well Nourished, Calm Eyes: Yes: WNL HENT: Yes: WNL Neck: Yes: WNL Cardiovascular: Yes: Pulse Irregular, S1, S2 Respiratory: Yes: Rales (few bibasailr rales) Gastrointestinal: Yes: Normal Bowel Sounds, Soft Extremities: Yes: WNL Edema: No Labs: CBC, BMP 10/17/19 07:00 10/17/19 07:00 INR, PTT INR 2.11 (0.83-1.09) H 10/13/19 00:10 Problem List - Problems (1) Hemoptysis Code(s): R04.2 - HEMOPTYSIS (2) Acute on chronic diastolic (congestive) heart failure Code(s): I50.33 - ACUTE ON CHRONIC DIASTOLIC (CONGESTIVE) HEART FAILURE (3) Anemia Code(s): D64.9 - ANEMIA, UNSPECIFIED Qualifiers: Anemia type: unspecified type Qualified Code(s): D64.9 - Anemia, unspecified (4) PAF (paroxysmal atrial fibrillation) Code(s): I48.0 - PAROXYSMAL ATRIAL FIBRILLATION (5) S/P CABG (coronary artery bypass graft) Code(s): Z95.1 - PRESENCE OF AORTOCORONARY BYPASS GRAFT (6) Pulmonary vascular congestion Code(s): R09.89 - OTH SYMPTOMS AND SIGNS INVOLVING THE CIRC AND RESP SYSTEMS (7) DM Diabetes mellitus Code(s): E11.9 - TYPE 2 DIABETES MELLITUS WITHOUT COMPLICATIONS (8) Emphysema lung Code(s): J43.9 - EMPHYSEMA, UNSPECIFIED (9) ILD (interstitial lung disease) Code(s): J84.9 - INTERSTITIAL PULMONARY DISEASE, UNSPECIFIED Assessment/Plan MP DYSPNEA IMPROVED ACUTE ON CHRONIC CHF SYMPTOMATIC ANEMIA HEMOPTYSIS LIKELY SECONDARY TO CHF IMPROVING ILD COPD O2 DEPENDENT HTN HLD AFIB CAROTID STENOSIS CKD PLAN SUPPLEMENTAL O2 LASIX PER RENAL,CARDIOLOGY INHALED BRONCHODILATORS QUANTIFY HEMOPTYSIS MONITOR H+H,LYTES,RENAL FUNCTION NORMAL TRANSFUSION THRESHOLD ABG DR SMITH Problem List - Problems (1) Hemoptysis Code(s): R04.2 - HEMOPTYSIS (2) Acute on chronic diastolic (congestive) heart failure Code(s): I50.33 - ACUTE ON CHRONIC DIASTOLIC (CONGESTIVE) HEART FAILURE (3) Anemia Code(s): D64.9 - ANEMIA, UNSPECIFIED Qualifiers: Anemia type: unspecified type Qualified Code(s): D64.9 - Anemia, unspecified (4) PAF (paroxysmal atrial fibrillation) Code(s): I48.0 - PAROXYSMAL ATRIAL FIBRILLATION (5) S/P CABG (coronary artery bypass graft) Code(s): Z95.1 - PRESENCE OF AORTOCORONARY BYPASS GRAFT (6) Pulmonary vascular congestion Code(s): R09.89 - OTH SYMPTOMS AND SIGNS INVOLVING THE CIRC AND RESP SYSTEMS (7) DM Diabetes mellitus Code(s): E11.9 - TYPE 2 DIABETES MELLITUS WITHOUT COMPLICATIONS (8) Emphysema lung Code(s): J43.9 - EMPHYSEMA, UNSPECIFIED (9) ILD (interstitial lung disease) Code(s): J84.9 - INTERSTITIAL PULMONARY DISEASE, UNSPECIFIED
--- NOTE | 2019-10-17 13:00 | PN ---
Progress Note, Physician History of Present Illness: Pt seen and examined at bedside. He is awake but confused. He denies shortness of breath. - Current Medication List Current Medications: Active Medications Albuterol Sulfate (Ventolin 0.083% Nebulizer Soln -) 1 amp NEB Q6H PRN PRN Reason: SHORT OF BREATH/WHEEZING Albuterol/Ipratropium (Duoneb -) 1 amp NEB RTID [facility] Last Admin: 10/17/19 09:10 Dose: 1 amp Documented by: Amlodipine Besylate (Norvasc -) 10 mg PO DAILY [facility] Last Admin: 10/17/19 09:27 Dose: 10 mg Documented by: Atorvastatin Calcium (Lipitor -) 80 mg PO HS [facility] Last Admin: 10/16/19 21:54 Dose: 80 mg Documented by: Budesonide/Formoterol Fumarate (Symbicort 160/4.5mcg -) 1 puff IH BID [facility] Last Admin: 10/17/19 09:28 Dose: 1 puff Documented by: Carbidopa/Levodopa (Sinemet *Cr* 50/200 -) 1.5 combo PO TID [facility] Last Admin: 10/17/19 05:20 Dose: 1.5 combo Documented by: Carvedilol (Coreg -) 25 mg PO BID [facility] Last Admin: 10/17/19 09:27 Dose: 25 mg Documented by: Ferrous Gluconate (Fergon -) 324 mg PO TIDCM [facility] Last Admin: 10/17/19 11:30 Dose: 324 mg Documented by: Furosemide (Lasix Injection -) 40 mg IVPUSH BID@0600,1400 [facility] Stop: 10/18/19 06:00 Last Admin: 10/17/19 05:21 Dose: 40 mg Documented by: Furosemide (Lasix Injection -) 40 mg IVPUSH DAILY [facility] Hydralazine HCl (Apresoline -) 25 mg PO BID [facility] Last Admin: 10/17/19 09:26 Dose: 25 mg Documented by: Insulin Aspart (Novolog Vial Sliding Scale -) 1 vial SQ ACHS [facility]; Protocol Last Admin: 10/17/19 11:30 Dose: Not Given Documented by: Non-Formulary Medication (Ergocalciferol (Vitamin D2) [Vitamin D2]) 5,000 unit PO Tu@1000 [facility] Pantoprazole Sodium (Protonix -) 40 mg PO BID [facility] Polyethylene Glycol (Miralax (For Daily Use) -) 17 gm PO DAILY [facility] Last Admin: 10/17/19 09:27 Dose: Not Given Documented by: Ranolazine (Ranexa -) 500 mg PO BID [facility] Last Admin: 10/17/19 09:28 Dose: 500 mg Documented by: Tamsulosin HCl (Flomax -) 0.4 mg PO DAILY@0830 [facility] Last Admin: 10/17/19 09:15 Dose: 0.4 mg Documented by: - Objective Vital Signs: Vital Signs Temperature 97.8 F 10/17/19 09:24 Pulse Rate 61 10/17/19 09:24 Respiratory Rate 20 10/17/19 09:24 Blood Pressure 147/53 L 10/17/19 09:24 O2 Sat by Pulse Oximetry (%) 97 10/17/19 09:24 Constitutional: Yes: Calm Eyes: Yes: Conjunctiva Clear HENT: Yes: Atraumatic Neck: Yes: Supple Cardiovascular: Yes: S1, S2 Respiratory: Yes: On Nasal O2 Gastrointestinal: Yes: Normal Bowel Sounds, Soft Genitourinary: Yes: Incontinence Musculoskeletal: Yes: WNL Edema: No Integumentary: Yes: WNL Neurological: Yes: Confusion Labs: CBC, BMP 10/17/19 07:00 10/17/19 07:00 INR, PTT INR 2.11 (0.83-1.09) H 10/13/19 00:10 Assessment/Plan Current Medications Generic Name Dose Route Start Last Admin Trade Name Freq PRN Reason Stop Dose Admin Albuterol Sulfate 1 amp 10/16/19 09:50 Ventolin 0.083% Nebulizer Soln - NEB Q6H PRN SHORT OF BREATH/WHEEZING Albuterol/Ipratropium 1 amp 10/16/19 10:00 10/17/19 09:10 Duoneb - NEB 1 amp RTID [facility] Administration Amlodipine Besylate 10 mg 10/13/19 10:30 10/17/19 09:27 Norvasc - PO 10 mg DAILY [facility] Administration Atorvastatin Calcium 80 mg 10/13/19 22:00 10/16/19 21:54 Lipitor - PO 80 mg HS [facility] Administration Budesonide/Formoterol Fumarate 1 puff 10/13/19 10:00 10/17/19 09:28 Symbicort 160/4.5mcg - IH 1 puff BID [facility] Administration Carbidopa/Levodopa 1.5 combo 10/13/19 06:00 10/17/19 05:20 Sinemet *Cr* 50/200 - PO 1.5 combo TID [facility] Administration Carvedilol 25 mg 10/13/19 10:30 10/17/19 09:27 Coreg - PO 25 mg BID [facility] Administration Ferrous Gluconate 324 mg 10/15/19 13:40 10/17/19 11:30 Fergon - PO 324 mg TIDCM [facility] Administration Furosemide 40 mg 10/13/19 16:00 10/17/19 05:21 Lasix Injection - IVPUSH 10/18/19 06:00 40 mg BID@0600,1400 [facility] Administration Furosemide 40 mg 10/18/19 10:00 Lasix Injection - IVPUSH DAILY [facility] Hydralazine HCl 25 mg 10/13/19 10:30 10/17/19 09:26 Apresoline - PO 25 mg BID [facility] Administration Insulin Aspart 1 vial 10/13/19 11:00 10/17/19 11:30 Novolog Vial Sliding Scale - SQ Not Given ACHS [facility] Protocol Non-Formulary Medication 5,000 unit 10/13/19 17:30 Ergocalciferol (Vitamin D2) [Vitamin D2] PO Tu@1000 [facility] Pantoprazole Sodium 40 mg 10/17/19 22:00 Protonix - PO BID [facility] Polyethylene Glycol 17 gm 10/14/19 11:45 10/17/19 09:27 Miralax (For Daily Use) - PO Not Given DAILY [facility] Ranolazine 500 mg 10/13/19 22:00 10/17/19 09:28 Ranexa - PO 500 mg BID [facility] Administration Tamsulosin HCl 0.4 mg 10/13/19 08:30 10/17/19 09:15 Flomax - PO 0.4 mg DAILY@0830 [facility] Administration Impression 1. ckd 2. anemia 3. urinary obstruction 4. hemoptysis 5. chf 6. cad 7. htn 8. a-fib Plan - hold lasix until am labs reviewed, he already received it today - check abg as bicarb elevated - cont iron supplements - anca and gbm neg - pulm follow up
[2019-10-17 14:22] LABS: ARTERIAL BLD GAS O2 SATURATION 96.1 mmHg (95-98); ARTERIAL BLOOD GAS BASE EXCESS 14.3 mmol/L (-2-2); ARTERIAL BLOOD GAS PO2 78.8 mmHg (80-100); ARTERIAL BLOOD GAS pH 7.479 (7.350-7.450)
[2019-10-17 14:25] LABS: ALLENS TEST POSITIVE
--- NOTE | 2019-10-17 15:39 | PN ---
Progress Note (short form) - Note Progress Note: Gastroenterology note: pt without any complaints of abd pain. He has no nausea/emesis and is tolerating a diet. Since yesterday he has had 3 black loose BM's Vital Signs Period Temp Pulse Resp BP Sys/Knutson Pulse Ox Last 24 Hr 97.6 F-99.0 F 61-67 20-20 120-157/40-71 96-97 GEN: A&0x3, NAD ABD: soft, non-distended, non-tender CBC, BMP 10/17/19 07:00 10/17/19 07:00 Laboratory Tests 10/16/19 06:20 Hgb 8.9 L Hct 26.9 L Current Medications Generic Name Dose Route Start Last Admin Trade Name Freq PRN Reason Stop Dose Admin Albuterol Sulfate 1 amp 10/16/19 09:50 Ventolin 0.083% Nebulizer Soln - NEB Q6H PRN SHORT OF BREATH/WHEEZING Albuterol/Ipratropium 1 amp 10/16/19 10:00 10/17/19 14:32 Duoneb - NEB 1 amp RTID RANJAN Administration Amlodipine Besylate 10 mg 10/13/19 10:30 10/17/19 09:27 Norvasc - PO 10 mg DAILY RANJAN Administration Atorvastatin Calcium 80 mg 10/13/19 22:00 10/16/19 21:54 Lipitor - PO 80 mg HS RANJAN Administration Budesonide/Formoterol Fumarate 1 puff 10/13/19 10:00 10/17/19 09:28 Symbicort 160/4.5mcg - IH 1 puff BID RANJAN Administration Carbidopa/Levodopa 1.5 combo 10/13/19 06:00 10/17/19 14:08 Sinemet *Cr* 50/200 - PO 1.5 combo TID RANJAN Administration Carvedilol 25 mg 10/13/19 10:30 10/17/19 09:27 Coreg - PO 25 mg BID RANJAN Administration Ferrous Gluconate 324 mg 10/15/19 13:40 10/17/19 11:30 Fergon - PO 324 mg TIDCM RANJAN Administration Furosemide 40 mg 10/13/19 16:00 10/17/19 14:07 Lasix Injection - IVPUSH 10/18/19 06:00 40 mg BID@0600,1400 RANJAN Administration Hydralazine HCl 25 mg 10/13/19 10:30 10/17/19 09:26 Apresoline - PO 25 mg BID RANJAN Administration Insulin Aspart 1 vial 10/13/19 11:00 10/17/19 11:30 Novolog Vial Sliding Scale - SQ Not Given ACHS [facility] Protocol Non-Formulary Medication 5,000 unit 10/13/19 17:30 Ergocalciferol (Vitamin D2) [Vitamin D2] PO Tu@1000 RANJAN Pantoprazole Sodium 40 mg 10/17/19 22:00 Protonix - PO BID RANJAN Polyethylene Glycol 17 gm 10/14/19 11:45 10/17/19 09:27 Miralax (For Daily Use) - PO Not Given DAILY RANAJN Ranolazine 500 mg 10/13/19 22:00 10/17/19 09:28 Ranexa - PO 500 mg BID RANJAN Administration Tamsulosin HCl 0.4 mg 10/13/19 08:30 10/17/19 09:15 Flomax - PO 0.4 mg DAILY@0830 RANJAN Administration A/P: 84 yo male with history dysplatic gastric gastric polyp He remains hemodynamically stable with a stable H&H. Plan is for follow up with [facility] [place] at for EGD/EUS and possible resection of adenoma. If patient with evidence bleeding that requires immediate intervention then EGD can be completed while at [facility]. Continue PPI D/w Dr. Hernandez <Karen Morris - Last Filed: 10/17/19 15:41> - Note Progress Note: pt was seen and examined agree with assessment and plan as outlined above. <Antonella Hernandez - Last Filed: 10/17/19 17:21>
--- NOTE | 2019-10-17 19:06 | PN ---
Teaching Attending Note Name of Resident: Arnulfo Li ATTENDING PHYSICIAN STATEMENT I saw and evaluated the patient. I reviewed the resident's note and discussed the case with the resident. I agree with the resident's findings and plan as documented. SUBJECTIVE: Patient is comfortable with no acute distress. no fever or chills. OBJECTIVE: Vital Signs Temperature 98.8 F 10/17/19 15:42 Pulse Rate 59 L 10/17/19 15:42 Respiratory Rate 20 10/17/19 15:42 Blood Pressure 136/44 L 10/17/19 15:42 O2 Sat by Pulse Oximetry (%) 97 10/17/19 09:24 PE:per resident's note CBCD WBC 6.2 K/mm3 (4.0-10.0) 10/17/19 07:00 RBC 2.94 M/mm3 (4.00-5.60) L 10/17/19 07:00 Hgb 8.7 GM/dL (11.7-16.9) L 10/17/19 07:00 Hct 25.9 % (35.4-49) L 10/17/19 07:00 MCV 88.0 fl (80-96) 10/17/19 07:00 MCHC 33.6 g/dl (32.0-35.9) 10/17/19 07:00 RDW 18.2 % (11.9-15.9) H 10/17/19 07:00 Plt Count 88 K/MM3 (134-434) L 10/17/19 07:00 MPV 8.3 fl (7.5-11.1) 10/17/19 07:00 CMP Sodium 142 mmol/L (136-145) 10/17/19 07:00 Potassium 4.0 mmol/L (3.5-5.1) 10/17/19 07:00 Chloride 99 mmol/L (98-107) 10/17/19 07:00 Carbon Dioxide 42 mmol/L (21-32) H 10/17/19 07:00 Anion Gap 1 MMOL/L (8-16) L 10/17/19 07:00 BUN 50.2 mg/dL (7-18) H 10/17/19 07:00 Creatinine 2.1 mg/dL (0.55-1.3) H 10/17/19 07:00 Random Glucose 109 mg/dL (74-106) H 10/17/19 07:00 Calcium 8.1 mg/dL (8.5-10.1) L 10/17/19 07:00 Total Bilirubin 1.6 mg/dL (0.2-1) H 10/17/19 07:00 AST 16 U/L (15-37) 10/17/19 07:00 ALT 6 U/L (13-61) L 10/17/19 07:00 Alkaline Phosphatase 51 U/L (45-117) 10/17/19 07:00 Total Protein 5.3 g/dl (6.4-8.2) L 10/17/19 07:00 Albumin 2.9 g/dl (3.4-5.0) L 10/17/19 07:00 CARDIAC ENZYMES Creatine Kinase 74 U/L (26-308) 10/13/19 00:10 Troponin I < 0.02 ng/ml (0.00-0.05) 10/13/19 00:10 Current Medications Generic Name Dose Route Start Last Admin Trade Name Freq PRN Reason Stop Dose Admin Albuterol Sulfate 1 amp 10/16/19 09:50 Ventolin 0.083% Nebulizer Soln - NEB Q6H PRN SHORT OF BREATH/WHEEZING Albuterol/Ipratropium 1 amp 10/16/19 10:00 10/17/19 14:32 Duoneb - NEB 1 amp RTID RANJAN Administration Amlodipine Besylate 10 mg 10/13/19 10:30 10/17/19 09:27 Norvasc - PO 10 mg DAILY RANJAN Administration Atorvastatin Calcium 80 mg 10/13/19 22:00 10/16/19 21:54 Lipitor - PO 80 mg HS RANJAN Administration Budesonide/Formoterol Fumarate 1 puff 10/13/19 10:00 10/17/19 09:28 Symbicort 160/4.5mcg - IH 1 puff BID RANJAN Administration Carbidopa/Levodopa 1.5 combo 10/13/19 06:00 10/17/19 14:08 Sinemet *Cr* 50/200 - PO 1.5 combo TID RANJAN Administration Carvedilol 25 mg 10/13/19 10:30 10/17/19 09:27 Coreg - PO 25 mg BID RANJAN Administration Ergocalciferol 50,000 unit 10/23/19 10:00 Drisdol - PO Tu@1000 [facility] Ferrous Gluconate 324 mg 10/15/19 13:40 10/17/19 17:35 Fergon - PO 324 mg TIDCM RANJAN Administration Furosemide 40 mg 10/13/19 16:00 10/17/19 14:07 Lasix Injection - IVPUSH 10/18/19 06:00 40 mg BID@0600,1400 [facility] Administration Hydralazine HCl 25 mg 10/13/19 10:30 10/17/19 09:26 Apresoline - PO 25 mg BID RANJAN Administration Insulin Aspart 1 vial 10/13/19 11:00 10/17/19 17:35 Novolog Vial Sliding Scale - SQ Not Given ACHS [facility] Protocol Pantoprazole Sodium 40 mg 10/17/19 22:00 Protonix - PO BID [facility] Polyethylene Glycol 17 gm 10/14/19 11:45 10/17/19 09:27 Miralax (For Daily Use) - PO Not Given DAILY [facility] Ranolazine 500 mg 10/13/19 22:00 10/17/19 09:28 Ranexa - PO 500 mg BID RANJAN Administration Tamsulosin HCl 0.4 mg 10/13/19 08:30 10/17/19 09:15 Flomax - PO 0.4 mg DAILY@0830 [facility] Administration Home Medications Medication Instructions Recorded Amlodipine Besylate 10 mg PO DAILY 09/25/19 Apixaban [Eliquis] 2.5 mg PO BID 09/25/19 Atorvastatin Ca [Lipitor] 80 mg PO HS 09/25/19 Carvedilol 25 mg PO BID 09/25/19 Empagliflozin [Jardiance] 25 mg PO DAILY 09/25/19 Ergocalciferol (Vitamin D2) 5,000 unit PO WEEKLY 09/25/19 [Vitamin D2] Glimepiride 1 mg PO DAILY 09/25/19 Hydralazine HCl 25 mg PO BID 09/25/19 Pantoprazole Sodium 40 mg PO DAILY 09/25/19 Ranolazine [Ranexa -] 500 mg PO BID 09/25/19 Budesonide/Formeterol Fumarate 1 inh PO BID 09/26/19 [SYMBICORT 160/4.5mcg -] Carbidopa/Levodopa [Carbidopa-Levo 1.5 each PO TID 09/26/19 ER 50-200 Tab] Microbiology 10/13/19 01:03 Urine - Urine Yanes Urine Culture - Final NO GROWTH OBTAINED ASSESSMENT AND PLAN: This patient is an 84yom with Pmhx of HTN , HLD, CKD, CAD sp CABG x 2 vessels, carotid stenosis, CHF, Afib, Parkinson disease, prostate cancer on radiation therapy, COPD on 2 liters NC at home, possible ILD , recurrent pneumonias who presented with LE edema and hemoptysis and was found to have acute CHF # Acute on chronic diastolic CHF exacerbation: on IV lasix BID and coreg continue # ARF over chronic: nephro on the case , will continue to monitor #chronic COPD on 2 liter oxygen continue #Acute blood loss s/p hemoptysis likely aggravated by Eliquis. will hold Eliquis for now. 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 As per GI, patient can benefit by having his next endoscopy at at center that can do endoscopic ultrasound and endoscopic submucosal or subserosal resection of this lesion. This can be done by Dr Gabrielle Bradford at [facility] where Dr Rice Orlando his PMD has privileges. Patient was advised as per GI to pursue this BRENDA after discharged. Dr Bradford can also determine whether or nor to repeat a colonoscopy. 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 Empiric PPI therapy to continue and hold off on Eliquis since high risk for the bleed. # HTN: Norvasc , coreg, and lasix continue . # DM : SSI , patient is Jardiance at home, on hold here since CrCl is less than 30 #Recent hx of urinary retention with hematuria . probably traumatic form yanes . has h/o prostate cancer, on Flomax continue # Hx of A fib: agree with card that AC is high risk fro bleeding. cont coreg . hold eliquis - dc yanes if possible
--- NOTE | 2019-10-17 19:33 | PN ---
Physical Exam: SUBJECTIVE: No overnight events. Patient seen and examined. Pt reports pain in heels. Reports difficulty sleeping. OBJECTIVE: Vital Signs Period Temp Pulse Resp BP Sys/Knutson Pulse Ox Last 24 Hr 97.6 F-99.0 F 59-67 18-20 120-147/40-71 92-97 GENERAL: The patient is awake, alert, and fully oriented, in no acute distress. HEENT: NT/ NC, sclera anicteric, conjunctiva clear. No ptosis. dry mucous membranes. LUNGS: wheezing b/l but sounds better than yesterday, no crackles, no accessory muscle use. HEART: Regular rate and rhythm, S1, S2 without murmur, rub or gallop. ABDOMEN: Soft, nontender, nondistended, normoactive bowel sounds, no guarding, no rebound EXTREMITIES: 1+ edema LE b/l. Heels b/l TTP; Non-erythematous, non-edematous. NEUROLOGICAL: gait not observed. PSYCH: Normal mood, normal affect. SKIN: Warm, dry, normal turgor, no rashes or lesions noted Laboratory Results - last 24 hr 10/16/19 10/17/19 10/17/19 20:21 05:30 07:00 WBC RBC Hgb Hct MCV MCH MCHC RDW Plt Count MPV Absolute Neuts (auto) Neutrophils % Lymphocytes % Monocytes % Eosinophils % Basophils % Nucleated RBC % Retic Count Anticoagulation Therapy Puncture Site Patient Temperature ABG pH ABG pCO2 ABG pO2 ABG HCO3 ABG O2 Sat (Measured) ABG O2 Content ABG Base Excess Gutierrez Test Patient On Oxygen O2 Delivery Device Oxygen Flow Rate Vent Mode Vent Rate Mechanical Rate PEEP Pressure Support Vent Sodium 142 Potassium 4.0 Chloride 99 Carbon Dioxide 42 H Anion Gap 1 L BUN 50.2 H Creatinine 2.1 H Est GFR (CKD-EPI)AfAm 32.75 Est GFR (CKD-EPI)NonAf 28.26 POC Glucometer 130 71 Random Glucose 109 H Calcium 8.1 L Phosphorus 2.9 Magnesium 2.5 H Iron 27 L TIBC 211 L Iron Saturation 12 L Unsaturated IBC 184 L Total Bilirubin 1.6 H AST 16 ALT 6 L Alkaline Phosphatase 51 C-Reactive Protein 2.7 H Total Protein 5.3 L Albumin 2.9 L 10/17/19 10/17/19 10/17/19 07:00 11:29 14:05 WBC 6.2 RBC 2.94 L Hgb 8.7 L Hct 25.9 L MCV 88.0 MCH 29.6 MCHC 33.6 RDW 18.2 H Plt Count 88 L MPV 8.3 Absolute Neuts (auto) 5.2 Neutrophils % 84.5 H Lymphocytes % 4.7 L Monocytes % 9.5 Eosinophils % 1.0 Basophils % 0.3 Nucleated RBC % 0 Retic Count 3.29 H Anticoagulation Therapy No Result Required. Puncture Site Right radial Patient Temperature No Result Required. ABG pH 7.479 H ABG pCO2 54.40 H ABG pO2 78.8 L ABG HCO3 39.5 H ABG O2 Sat (Measured) 96.1 ABG O2 Content No Result Required. ABG Base Excess 14.3 H Gutierrez Test Positive Patient On Oxygen Yes O2 Delivery Device Nc Oxygen Flow Rate 3l nc Vent Mode Na Vent Rate No Result Required. Mechanical Rate Na PEEP No Result Required. Pressure Support Vent No Result Required. Sodium Potassium Chloride Carbon Dioxide Anion Gap BUN Creatinine Est GFR (CKD-EPI)AfAm Est GFR (CKD-EPI)NonAf POC Glucometer 142 Random Glucose Calcium Phosphorus Magnesium Iron TIBC Iron Saturation Unsaturated IBC Total Bilirubin AST ALT Alkaline Phosphatase C-Reactive Protein Total Protein Albumin 10/17/19 17:33 WBC RBC Hgb Hct MCV MCH MCHC RDW Plt Count MPV Absolute Neuts (auto) Neutrophils % Lymphocytes % Monocytes % Eosinophils % Basophils % Nucleated RBC % Retic Count Anticoagulation Therapy Puncture Site Patient Temperature ABG pH ABG pCO2 ABG pO2 ABG HCO3 ABG O2 Sat (Measured) ABG O2 Content ABG Base Excess Gutierrez Test Patient On Oxygen O2 Delivery Device Oxygen Flow Rate Vent Mode Vent Rate Mechanical Rate PEEP Pressure Support Vent Sodium Potassium Chloride Carbon Dioxide Anion Gap BUN Creatinine Est GFR (CKD-EPI)AfAm Est GFR (CKD-EPI)NonAf POC Glucometer 105 Random Glucose Calcium Phosphorus Magnesium Iron TIBC Iron Saturation Unsaturated IBC Total Bilirubin AST ALT Alkaline Phosphatase C-Reactive Protein Total Protein Albumin Active Medications Generic Name Dose Route Start Last Admin Trade Name Freq PRN Reason Stop Dose Admin Albuterol Sulfate 1 amp 10/16/19 09:50 Ventolin 0.083% Nebulizer Soln - NEB Q6H PRN SHORT OF BREATH/WHEEZING Albuterol/Ipratropium 1 amp 10/16/19 10:00 10/17/19 14:32 Duoneb - NEB 1 amp RTID RANJAN Administration Amlodipine Besylate 10 mg 10/13/19 10:30 10/17/19 09:27 Norvasc - PO 10 mg DAILY RANJAN Administration Atorvastatin Calcium 80 mg 10/13/19 22:00 10/16/19 21:54 Lipitor - PO 80 mg HS RANJAN Administration Budesonide/Formoterol Fumarate 1 puff 10/13/19 10:00 10/17/19 09:28 Symbicort 160/4.5mcg - IH 1 puff BID RANJAN Administration Carbidopa/Levodopa 1.5 combo 10/13/19 06:00 10/17/19 14:08 Sinemet *Cr* 50/200 - PO 1.5 combo TID RANJAN Administration Carvedilol 25 mg 10/13/19 10:30 10/17/19 09:27 Coreg - PO 25 mg BID RANJAN Administration Ergocalciferol 50,000 unit 10/23/19 10:00 Drisdol - PO Tu@1000 [facility] Ferrous Gluconate 324 mg 10/15/19 13:40 10/17/19 17:35 Fergon - PO 324 mg TIDCM RANJAN Administration Furosemide 40 mg 10/13/19 16:00 10/17/19 14:07 Lasix Injection - IVPUSH 10/18/19 06:00 40 mg BID@0600,1400 [facility] Administration Hydralazine HCl 25 mg 10/13/19 10:30 10/17/19 09:26 Apresoline - PO 25 mg BID RANJAN Administration Insulin Aspart 1 vial 10/13/19 11:00 10/17/19 17:35 Novolog Vial Sliding Scale - SQ Not Given ACHS [facility] Protocol Pantoprazole Sodium 40 mg 10/17/19 22:00 Protonix - PO BID [facility] Polyethylene Glycol 17 gm 10/14/19 11:45 10/17/19 09:27 Miralax (For Daily Use) - PO Not Given DAILY [facility] Ranolazine 500 mg 10/13/19 22:00 10/17/19 09:28 Ranexa - PO 500 mg BID RANJAN Administration Tamsulosin HCl 0.4 mg 10/13/19 08:30 10/17/19 09:15 Flomax - PO 0.4 mg DAILY@0830 RANJAN Administration ASSESSMENT/PLAN: 84 YO M PMH COPD, afib, HTN, Diastolic CHF, Parkinsons, HLD, prostate cancer, COPD, DM, anemia, CAD (2008 CABG) p/w SOB, LE edema, nausea, & vomiting. Admitted for acute CHF exacerbation. #Acute on Chronic CHF exacerbation. -cardio c/s appreciated. decreased to furosemide 40 mg QD IV push. One dose already given today. Further Lasix will be held until AM come back. Pulm c/s appreciated. -c/w carvedilol 25 mg PO BID (home dose) -c/w hydralazine 25 mg PO BID (home), # Hemoptysis -likely from pulmonary edema - eliquis was held #DM: ISS #HTN - c/w amlodipine 10 mg PO daily (home), carvedilol 25 mg PO BID (home) -Will resume Losartan when renal status stabilizes #Anemia -Iron, TIBC, Iron sat, unsaturated IBC are low. Ferritin nml. MCV nml. Likely anemia of chronic disease -c/w ferrous gluconate -h/o prostate cancer s/p radiation. 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 GI c/s appreciated. GI discussed need for endoscopy after d/c w/ pt's family w/ center that is able to perform"endoscopic ultrasound & sub- mucosal/serosal resection of possible gastric adenoma. Dr. Gabrielle Bradford at [facility] recommended. EGD intervention of hemorrhage occurs. -CEA was ordered. gastric cancer marker -c/w pantoprazole 40 mg PO daily # afib -H&H stable. Continue holding Eliquis -c/w carvedilol #urinary retention - c/w tamsulosin -hematuria likely from traumatic insertion #Elevated bicarb -bicarb on chem was elevated. ABG. ELEVATED: pH 7.479, PCO2 54.5, HCO3 39.5, Base excess 14.3 LOW PO2 78.8, #CAD Atorvastatin 80 mg QHS Ranexa 500 mg BID #FEN No IV fluids Monitor BMP Na+ controlled diet #DISPO Maintain med surg Visit type - Emergency Visit Emergency Visit: Yes ED Registration Date: 10/13/19 Care time: The patient presented to the Emergency Department on the above date and was hospitalized for further evaluation of their emergent condition. - New Patient This patient is new to me today: No - Critical Care Critical Care patient: No - Medication Review Med list reviewed for High Risk Meds patients 65 and older: Yes ATTENDING PHYSICIAN STATEMENT I saw and evaluated the patient. I reviewed the resident's note and discussed the case with the resident. I agree with the resident's findings and plan as documented. SUBJECTIVE: OBJECTIVE: ASSESSMENT AND PLAN:
[2019-10-17] MEDS: ATORVASTATIN CA 80 MG TABLET (FP) PO SCH (21:18)
[2019-10-18] MEDS: FUROSEMIDE 40 MG/4 ML INJECTABLE VIAL IVPUSH SCH (06:43)
[2019-10-18] MEDS: INSULIN SLIDING SCALE (NOVOLOG) 1 VIAL SQ SCH ×4 (06:44→21:33)
[2019-10-18] MEDS: ALBUTEROL SO4 2.5/IPRATROPIUM 0.5 INH SOL 3 ML VIAL.NEB. NEB SCH ×3 (08:20→20:15)
[2019-10-18 08:28] LABS: BASO % 0.4 % (0-2.0); EOS % 1.4 % (0-4.5); HEMATOCRIT 24.9 % (35.4-49); HEMOGLOBIN 8.3 GM/dL (11.7-16.9); LYMPH % 5.8 % (8-40); MCH 29.7 pg (25.7-33.7); MCHC 33.2 g/dl (32.0-35.9); MEAN CELL VOLUME 89.4 fl (80-96); MEAN PLT VOLUME 8.4 fl (7.5-11.1); NEUT % 80.4 % (42.8-82.8); PLATELET COUNT 92 K/MM3 (134-434); RBC 2.79 M/mm3 (4.00-5.60); RDW 19.1 % (11.9-15.9); WHITE BLOOD COUNT 5.9 K/mm3 (4.0-10.0)
[2019-10-18] MEDS: TAMSULOSIN HCL 0.4 MG CAP PO SCH (08:37)
[2019-10-18] MEDS: FERROUS GLUCONATE 324 MG TAB (FP) PO SCH ×3 (08:37→17:08)
[2019-10-18 08:45] LABS: ALBUMIN 2.8 g/dl (3.4-5.0); ALK PHOS 55 U/L (45-117); ANION GAP 3 MMOL/L (8-16); BILIRUBIN,TOTAL 1.1 mg/dL (0.2-1); BLOOD UREA NITROGEN 44.2 mg/dL (7-18); CHLORIDE 99 mmol/L (98-107); CO2 41 mmol/L (21-32); CREATININE 2.1 mg/dL (0.55-1.3); GLUCOSE,RANDOM 75 mg/dL (74-106); MAGNESIUM 2.5 mg/dL (1.8-2.4); PHOSPHOROUS 2.7 mg/dL (2.5-4.9); SGOT/AST 18 U/L (15-37); SODIUM 143 mmol/L (136-145); TOT PROT 5.4 g/dl (6.4-8.2)
[2019-10-18 08:47] LABS: SGPT/ALT < 6 U/L (13-61)
[2019-10-18] MEDS ORDERED: FUROSEMIDE 40 MG/4 ML INJECTABLE VIAL IVPUSH SCH (10:00)
--- NOTE | 2019-10-18 10:01 | PN ---
Progress Note, Physician History of Present Illness: SUBJECTIVE: This is an 84 year old man with a history of HTN, hyperlipidemia, CAD, CABG, CHF (diatolic) , Paroxysmal atrial fib, chronic hypoxic respiratory failure, COPD, ILD, CKD, Parkinson disease who comes to the ED complaining of SOB, coughing up blood, nausea and vomiting, and worsening leg swelling. Since last visit 09/20/2019, had been admitted 09/24 for hemoptysis and COPD exacerb ation. During the hospitalization, he had ANÍBAL and urinary retention requiring a Sandoval catheter which was removed prior to discharge. Lasix and Cozaar were held because of ANÍBAL. He was discharged on 09/30 on a prednisone taper. Pt has started seeing ?blood in mouth, unable to eat and SOB. In ER :Found to have Hb 5.7, negative Trop, elevated BNP 10/13: restless overnight; no acute cardiac events; seen by nephro 10/14: Denies chest pain, dyspnea or LE edema, hematuria and hemoptysis resolved 10/15: Denies chest pain or palpitations, less SOB 10/16: Resting comfortably, denies chest pain, dyspnea or palpitations 10/17: Resting comfortably, denies further hemoptysis, breathing continues to improve. No fevers, diuretics held per renal. 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 SFA R>L ICA stenosis no plans for angio in future; Echo 05/24 Nl EF, grade II diastolic dysfunction Cath 2010 patent WEN>LAD, SVG>LPL, RI Orthostatic Hypotension Chest Pain Syndrome PAST SURGICAL HISTORY: CABG 2009 Carotid endartectomy: left - Current Medication List Current Medications: Active Medications Albuterol Sulfate (Ventolin 0.083% Nebulizer Soln -) 1 amp NEB Q6H PRN PRN Reason: SHORT OF BREATH/WHEEZING Albuterol/Ipratropium (Duoneb -) 1 amp NEB RTID [facility] Last Admin: 10/18/19 08:20 Dose: 1 amp Documented by: Amlodipine Besylate (Norvasc -) 10 mg PO DAILY [facility] Last Admin: 10/17/19 09:27 Dose: 10 mg Documented by: Atorvastatin Calcium (Lipitor -) 80 mg PO HS [facility] Last Admin: 10/17/19 21:18 Dose: 80 mg Documented by: Budesonide/Formoterol Fumarate (Symbicort 160/4.5mcg -) 1 puff IH BID [facility] Last Admin: 10/17/19 21:18 Dose: 1 puff Documented by: Carbidopa/Levodopa (Sinemet *Cr* 50/200 -) 1.5 combo PO TID [facility] Last Admin: 10/18/19 06:43 Dose: 1.5 combo Documented by: Carvedilol (Coreg -) 25 mg PO BID [facility] Last Admin: 10/17/19 21:17 Dose: 25 mg Documented by: Ergocalciferol (Drisdol -) 50,000 unit PO Tu@1000 [facility] Ferrous Gluconate (Fergon -) 324 mg PO TIDCM [facility] Last Admin: 10/18/19 08:37 Dose: 324 mg Documented by: Hydralazine HCl (Apresoline -) 25 mg PO BID [facility] Last Admin: 10/17/19 21:18 Dose: 25 mg Documented by: Insulin Aspart (Novolog Vial Sliding Scale -) 1 vial SQ [facility]; Protocol Last Admin: 10/18/19 06:44 Dose: Not Given Documented by: Pantoprazole Sodium (Protonix -) 40 mg PO BID [facility] Last Admin: 10/17/19 21:17 Dose: 40 mg Documented by: Polyethylene Glycol (Miralax (For Daily Use) -) 17 gm PO DAILY [facility] Last Admin: 10/17/19 09:27 Dose: Not Given Documented by: Ranolazine (Ranexa -) 500 mg PO BID [facility] Last Admin: 10/17/19 21:18 Dose: 500 mg Documented by: Tamsulosin HCl (Flomax -) 0.4 mg PO DAILY@0830 [facility] Last Admin: 10/18/19 08:37 Dose: 0.4 mg Documented by: - Objective Vital Signs: Vital Signs Temperature 98.7 F 10/18/19 06:00 Pulse Rate 66 10/18/19 08:21 Respiratory Rate 20 10/18/19 06:00 Blood Pressure 131/47 L 10/18/19 06:00 O2 Sat by Pulse Oximetry (%) 96 10/18/19 08:21 Constitutional: Yes: No Distress, Calm, Thin Neck: Yes: Supple Cardiovascular: Yes: Regular Rate and Rhythm Respiratory: Yes: Diminished, On Nasal O2 Gastrointestinal: Yes: Soft, Hypoactive Bowel Sounds Edema: No Labs: CBC, BMP 10/18/19 07:31 10/18/19 07:31 INR, PTT INR 2.11 (0.83-1.09) H 10/13/19 00:10 Problem List - Problems (1) Acute on chronic diastolic (congestive) heart failure Code(s): I50.33 - ACUTE ON CHRONIC DIASTOLIC (CONGESTIVE) HEART FAILURE (2) Anemia Code(s): D64.9 - ANEMIA, UNSPECIFIED Qualifiers: Anemia type: unspecified type Qualified Code(s): D64.9 - Anemia, unspecified (3) PAF (paroxysmal atrial fibrillation) Code(s): I48.0 - PAROXYSMAL ATRIAL FIBRILLATION (4) S/P CABG (coronary artery bypass graft) Code(s): Z95.1 - PRESENCE OF AORTOCORONARY BYPASS GRAFT (5) DM Diabetes mellitus Code(s): E11.9 - TYPE 2 DIABETES MELLITUS WITHOUT COMPLICATIONS Assessment/Plan 1. Acute on chronic LV diastolic failure improving 2. Hemoptysis resolved 2. CAD s/p CABG, angina pectoris 3. HTN 4. Hypercholesterolemia 5. Paroxysmal Atrial fibrillation 6. COPD and ILD 7. Acute on CKD improving 8. Carotid stenosis s/p CEA (left) 9. PAD 10. Parkinson's 11. Anemia/thrombocytopenia PLAN: 1. Diuretics held per renal with monitor diuretic need, renal function and electrolytes 2. Continue Carvedilol 25 mg BID, Hydralazine 25 mg BID and Amlodipine 10 mg QD. Currently not on Losartan. Resume when renal function stabilizes 3. Ranexa 500 mg BID 4. Atorvastatin 80 mg QHS 5. Currently not on anticoagulation with high bleeding risk. Possible NELY closure may be considered in the future if patient is not going to be candidate for correction anticoagulation 6. 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 If hemorrhage ensues then interventio nal EGD would be undertaken while here. 6. BD, O2 to keep SpO2 >90%, DVT prophylaxis -
[2019-10-18] MEDS: amLODIPine BESYLATE 10 MG TABLET (FP) PO SCH (10:06)
[2019-10-18] MEDS: PANTOPRAZOLE 40 MG TABLET PO SCH ×2 (10:06→21:33)
[2019-10-18] MEDS: hydrALAZINE HCL 25 MG TABLET (FP) PO SCH ×2 (10:06→21:33)
[2019-10-18] MEDS: POLYETHYLENE GLYCOL 3350 119 GM BTL PO SCH (10:06)
[2019-10-18] MEDS: RANOLAZINE E.R. 500 MG TABLET (FP) PO SCH ×2 (10:07→21:33)
[2019-10-18] MEDS: CARVEDILOL 25 MG TABLET (FP) PO SCH ×2 (10:07→21:33)
[2019-10-18] MEDS: BUDESONIDE/FORMETEROL FUMARATE 160/4.5 mcg INHALER IH SCH ×2 (10:09→21:33)
--- NOTE | 2019-10-18 11:02 | PN ---
Progress Note (short form) - Note Progress Note: PULMONARY No further hemoptysis, breathing continues to improve. No fevers. Vital Signs Period Temp Pulse Resp BP Sys/Knutson Pulse Ox Last 24 Hr 98 F-98.8 F 59-68 18-20 126-136/44-50 92-99 Gen: NAD at rest Heart: RRR Lung: decreased breath sounds at the bases Abd: soft, nontender Ext: no edema CBC, BMP 10/18/19 07:31 10/18/19 07:31 Active Medications Albuterol Sulfate (Ventolin 0.083% Nebulizer Soln -) 1 amp NEB Q6H PRN PRN Reason: SHORT OF BREATH/WHEEZING Albuterol/Ipratropium (Duoneb -) 1 amp NEB RTID [facility] Last Admin: 10/18/19 08:20 Dose: 1 amp Documented by: Amlodipine Besylate (Norvasc -) 10 mg PO DAILY [facility] Last Admin: 10/18/19 10:06 Dose: 10 mg Documented by: Atorvastatin Calcium (Lipitor -) 80 mg PO HS [facility] Last Admin: 10/17/19 21:18 Dose: 80 mg Documented by: Budesonide/Formoterol Fumarate (Symbicort 160/4.5mcg -) 1 puff IH BID [facility] Last Admin: 10/18/19 10:09 Dose: 1 puff Documented by: Carbidopa/Levodopa (Sinemet *Cr* 50/200 -) 1.5 combo PO TID [facility] Last Admin: 10/18/19 06:43 Dose: 1.5 combo Documented by: Carvedilol (Coreg -) 25 mg PO BID [facility] Last Admin: 10/18/19 10:07 Dose: 25 mg Documented by: Ergocalciferol (Drisdol -) 50,000 unit PO Tu@1000 [facility] Ferrous Gluconate (Fergon -) 324 mg PO TIDCM [facility] Last Admin: 10/18/19 08:37 Dose: 324 mg Documented by: Hydralazine HCl (Apresoline -) 25 mg PO BID [facility] Last Admin: 10/18/19 10:06 Dose: 25 mg Documented by: Insulin Aspart (Novolog Vial Sliding Scale -) 1 vial SQ ACHS [facility]; Protocol Last Admin: 10/18/19 06:44 Dose: Not Given Documented by: Pantoprazole Sodium (Protonix -) 40 mg PO BID [facility] Last Admin: 10/18/19 10:06 Dose: 40 mg Documented by: Polyethylene Glycol (Miralax (For Daily Use) -) 17 gm PO DAILY [facility] Last Admin: 10/18/19 10:06 Dose: 17 gm Documented by: Ranolazine (Ranexa -) 500 mg PO BID [facility] Last Admin: 10/18/19 10:07 Dose: 500 mg Documented by: Tamsulosin HCl (Flomax -) 0.4 mg PO DAILY@0830 [facility] Last Admin: 10/18/19 08:37 Dose: 0.4 mg Documented by: A/P Acute on Chronic Diastolic Heart Failure Hemoptysis resolved COPD Chronic Hypoxic Respiratory Failure Interstitial Lung Disease Atrial Fibrilation HTN Hyperlipidemia CKD Anemia Thrombocytopenia - lasix as needed - monitor urine output, creatinine - monitor/quantify hemoptysis - inhaled bronchodilators - rate control - O2 to keep SpO2 >90% - DVT prophylaxis
--- NOTE | 2019-10-18 15:28 | PN ---
Progress Note, Physician History of Present Illness: Pt seen and examined at bedside. He is awake and appears comfortable. - Current Medication List Current Medications: Active Medications Albuterol Sulfate (Ventolin 0.083% Nebulizer Soln -) 1 amp NEB Q6H PRN PRN Reason: SHORT OF BREATH/WHEEZING Albuterol/Ipratropium (Duoneb -) 1 amp NEB RTID [facility] Last Admin: 10/18/19 14:07 Dose: 1 amp Documented by: Amlodipine Besylate (Norvasc -) 10 mg PO DAILY [facility] Last Admin: 10/18/19 10:06 Dose: 10 mg Documented by: Atorvastatin Calcium (Lipitor -) 80 mg PO HS [facility] Last Admin: 10/17/19 21:18 Dose: 80 mg Documented by: Budesonide/Formoterol Fumarate (Symbicort 160/4.5mcg -) 1 puff IH BID [facility] Last Admin: 10/18/19 10:09 Dose: 1 puff Documented by: Carbidopa/Levodopa (Sinemet *Cr* 50/200 -) 1.5 combo PO TID [facility] Last Admin: 10/18/19 14:31 Dose: 1.5 combo Documented by: Carvedilol (Coreg -) 25 mg PO BID [facility] Last Admin: 10/18/19 10:07 Dose: 25 mg Documented by: Ergocalciferol (Drisdol -) 50,000 unit PO Tu@1000 [facility] Ferrous Gluconate (Fergon -) 324 mg PO TIDCM [facility] Last Admin: 10/18/19 12:39 Dose: 324 mg Documented by: Hydralazine HCl (Apresoline -) 25 mg PO BID [facility] Last Admin: 10/18/19 10:06 Dose: 25 mg Documented by: Insulin Aspart (Novolog Vial Sliding Scale -) 1 vial SQ ACHS [facility]; Protocol Last Admin: 10/18/19 12:01 Dose: Not Given Documented by: Pantoprazole Sodium (Protonix -) 40 mg PO BID [facility] Last Admin: 10/18/19 10:06 Dose: 40 mg Documented by: Polyethylene Glycol (Miralax (For Daily Use) -) 17 gm PO DAILY [facility] Last Admin: 10/18/19 10:06 Dose: 17 gm Documented by: Ranolazine (Ranexa -) 500 mg PO BID [facility] Last Admin: 10/18/19 10:07 Dose: 500 mg Documented by: Tamsulosin HCl (Flomax -) 0.4 mg PO DAILY@0830 [facility] Last Admin: 10/18/19 08:37 Dose: 0.4 mg Documented by: - Objective Vital Signs: Vital Signs Temperature 97.9 F 10/18/19 15:16 Pulse Rate 110 H 10/18/19 15:16 Respiratory Rate 18 10/18/19 15:16 Blood Pressure 141/46 L 10/18/19 15:16 O2 Sat by Pulse Oximetry (%) 99 10/18/19 09:20 Constitutional: Yes: Calm Cardiovascular: Yes: S1, S2 Respiratory: Yes: CTA Bilaterally Gastrointestinal: Yes: Soft Genitourinary: Yes: WNL Musculoskeletal: Yes: WNL Edema: No Neurological: Yes: Oriented Psychiatric: Yes: Oriented Labs: CBC, BMP 10/18/19 07:31 10/18/19 07:31 INR, PTT INR 2.11 (0.83-1.09) H 10/13/19 00:10 Assessment/Plan Current Medications Generic Name Dose Route Start Last Admin Trade Name Freq PRN Reason Stop Dose Admin Albuterol Sulfate 1 amp 10/16/19 09:50 Ventolin 0.083% Nebulizer Soln - NEB Q6H PRN SHORT OF BREATH/WHEEZING Albuterol/Ipratropium 1 amp 10/16/19 10:00 10/18/19 14:07 Duoneb - NEB 1 amp RTID [facility] Administration Amlodipine Besylate 10 mg 10/13/19 10:30 10/18/19 10:06 Norvasc - PO 10 mg DAILY [facility] Administration Atorvastatin Calcium 80 mg 10/13/19 22:00 10/17/19 21:18 Lipitor - PO 80 mg HS [facility] Administration Budesonide/Formoterol Fumarate 1 puff 10/13/19 10:00 10/18/19 10:09 Symbicort 160/4.5mcg - IH 1 puff BID [facility] Administration Carbidopa/Levodopa 1.5 combo 10/13/19 06:00 10/18/19 14:31 Sinemet *Cr* 50/200 - PO 1.5 combo TID [facility] Administration Carvedilol 25 mg 10/13/19 10:30 10/18/19 10:07 Coreg - PO 25 mg BID [facility] Administration Ergocalciferol 50,000 unit 10/23/19 10:00 Drisdol - PO Tu@1000 [facility] Ferrous Gluconate 324 mg 10/15/19 13:40 10/18/19 12:39 Fergon - PO 324 mg TIDCM [facility] Administration Hydralazine HCl 25 mg 10/13/19 10:30 10/18/19 10:06 Apresoline - PO 25 mg BID [facility] Administration Insulin Aspart 1 vial 10/13/19 11:00 10/18/19 12:01 Novolog Vial Sliding Scale - SQ Not Given ACHS [facility] Protocol Pantoprazole Sodium 40 mg 10/17/19 22:00 10/18/19 10:06 Protonix - PO 40 mg BID [facility] Administration Polyethylene Glycol 17 gm 10/14/19 11:45 10/18/19 10:06 Miralax (For Daily Use) - PO 17 gm DAILY [facility] Administration Ranolazine 500 mg 10/13/19 22:00 10/18/19 10:07 Ranexa - PO 500 mg BID [facility] Administration Tamsulosin HCl 0.4 mg 10/13/19 08:30 10/18/19 08:37 Flomax - PO 0.4 mg DAILY@0830 [facility] Administration Impression 1. ckd 2. anemia 3. urinary obstruction 4. hemoptysis 5. chf 6. cad 7. htn 8. a-fib Plan - renal function improving - resume lasix at 40 mg daily - discussed with medical team - will need outpt follow up - abg reviewed - cont iron supplements - anca and gbm neg - pulm follow up
--- NOTE | 2019-10-18 18:00 | PN ---
Teaching Attending Note Name of Resident: Arnulfo Li ATTENDING PHYSICIAN STATEMENT I saw and evaluated the patient. I reviewed the resident's note and discussed the case with the resident. I agree with the resident's findings and plan as documented. SUBJECTIVE: OBJECTIVE: Vital Signs Temperature 97.9 F 10/18/19 15:16 Pulse Rate 110 H 10/18/19 15:16 Respiratory Rate 18 10/18/19 15:16 Blood Pressure 141/46 L 10/18/19 15:16 O2 Sat by Pulse Oximetry (%) 99 10/18/19 09:20 PE: per resident's note on Home oxygen CBCD WBC 5.9 K/mm3 (4.0-10.0) 10/18/19 07:31 RBC 2.79 M/mm3 (4.00-5.60) L 10/18/19 07:31 Hgb 8.3 GM/dL (11.7-16.9) L 10/18/19 07:31 Hct 24.9 % (35.4-49) L 10/18/19 07:31 MCV 89.4 fl (80-96) 10/18/19 07:31 MCHC 33.2 g/dl (32.0-35.9) 10/18/19 07:31 RDW 19.1 % (11.9-15.9) H 10/18/19 07:31 Plt Count 92 K/MM3 (134-434) L 10/18/19 07:31 MPV 8.4 fl (7.5-11.1) 10/18/19 07:31 CMP Sodium 143 mmol/L (136-145) 10/18/19 07:31 Potassium 4.0 mmol/L (3.5-5.1) 10/18/19 07:31 Chloride 99 mmol/L (98-107) 10/18/19 07:31 Carbon Dioxide 41 mmol/L (21-32) H 10/18/19 07:31 Anion Gap 3 MMOL/L (8-16) L 10/18/19 07:31 BUN 44.2 mg/dL (7-18) H 10/18/19 07:31 Creatinine 2.1 mg/dL (0.55-1.3) H 10/18/19 07:31 Random Glucose 75 mg/dL (74-106) 10/18/19 07:31 Calcium 8.0 mg/dL (8.5-10.1) L 10/18/19 07:31 Total Bilirubin 1.1 mg/dL (0.2-1) H 10/18/19 07:31 AST 18 U/L (15-37) 10/18/19 07:31 ALT < 6 U/L (13-61) L 10/18/19 07:31 Alkaline Phosphatase 55 U/L (45-117) 10/18/19 07:31 Total Protein 5.4 g/dl (6.4-8.2) L 10/18/19 07:31 Albumin 2.8 g/dl (3.4-5.0) L 10/18/19 07:31 CARDIAC ENZYMES Creatine Kinase 74 U/L (26-308) 10/13/19 00:10 Troponin I < 0.02 ng/ml (0.00-0.05) 10/13/19 00:10 Home Medications Medication Instructions Recorded Amlodipine Besylate 10 mg PO DAILY 09/25/19 Apixaban [Eliquis] 2.5 mg PO BID 09/25/19 Atorvastatin Ca [Lipitor] 80 mg PO HS 09/25/19 Carvedilol 25 mg PO BID 09/25/19 Glimepiride 1 mg PO DAILY 09/25/19 Hydralazine HCl 25 mg PO BID 09/25/19 Pantoprazole Sodium 40 mg PO DAILY 09/25/19 Ranolazine [Ranexa -] 500 mg PO BID 09/25/19 Budesonide/Formeterol Fumarate 1 inh PO BID 09/26/19 [SYMBICORT 160/4.5mcg -] Carbidopa/Levodopa [Carbidopa-Levo 1.5 each PO TID 09/26/19 ER 50-200 Tab] Cholecalciferol (Vitamin D3) 2,000 unit PO DAILY #30 capsule 10/18/19 [D-2000] Current Medications Generic Name Dose Route Start Last Admin Trade Name Freq PRN Reason Stop Dose Admin Albuterol Sulfate 1 amp 10/16/19 09:50 Ventolin 0.083% Nebulizer Soln - NEB Q6H PRN SHORT OF BREATH/WHEEZING Albuterol/Ipratropium 1 amp 10/16/19 10:00 10/18/19 14:07 Duoneb - NEB 1 amp RTID [facility] Administration Amlodipine Besylate 10 mg 10/13/19 10:30 10/18/19 10:06 Norvasc - PO 10 mg DAILY [facility] Administration Atorvastatin Calcium 80 mg 10/13/19 22:00 10/17/19 21:18 Lipitor - PO 80 mg HS [facility] Administration Budesonide/Formoterol Fumarate 1 puff 10/13/19 10:00 10/18/19 10:09 Symbicort 160/4.5mcg - IH 1 puff BID [facility] Administration Carbidopa/Levodopa 1.5 combo 10/13/19 06:00 10/18/19 14:31 Sinemet *Cr* 50/200 - PO 1.5 combo TID [facility] Administration Carvedilol 25 mg 10/13/19 10:30 10/18/19 10:07 Coreg - PO 25 mg BID [facility] Administration Ergocalciferol 50,000 unit 10/23/19 10:00 Drisdol - PO Tu@1000 [facility] Ferrous Gluconate 324 mg 10/15/19 13:40 10/18/19 17:08 Fergon - PO 324 mg TIDCM [facility] Administration Hydralazine HCl 25 mg 10/13/19 10:30 10/18/19 10:06 Apresoline - PO 25 mg BID [facility] Administration Insulin Aspart 1 vial 10/13/19 11:00 10/18/19 16:32 Novolog Vial Sliding Scale - SQ Not Given ACHS [facility] Protocol Pantoprazole Sodium 40 mg 10/17/19 22:00 10/18/19 10:06 Protonix - PO 40 mg BID [facility] Administration Polyethylene Glycol 17 gm 10/14/19 11:45 10/18/19 10:06 Miralax (For Daily Use) - PO 17 gm DAILY [facility] Administration Ranolazine 500 mg 10/13/19 22:00 10/18/19 10:07 Ranexa - PO 500 mg BID [facility] Administration Tamsulosin HCl 0.4 mg 10/13/19 08:30 10/18/19 08:37 Flomax - PO 0.4 mg DAILY@0830 [facility] Administration Microbiology 10/13/19 01:03 Urine - Urine Yanes Urine Culture - Final NO GROWTH OBTAINED ASSESSMENT AND PLAN: This patient is an 84yom with Pmhx of HTN , HLD, CKD, CAD sp CABG x 2 vessels, carotid stenosis, CHF, Afib, Parkinson disease, prostate cancer on radiation therapy, COPD on 2 liters NC at home, possible ILD , recurrent pneumonias who presented with LE edema and hemoptysis and was found to have acute CHF # Acute on chronic diastolic CHF exacerbation: on IV lasix BID and coreg continue # ARF over chronic: nephro on the case , will continue to monitor creatinine 2.1 #chronic COPD on 2 liter oxygen continue #Acute blood loss s/p hemoptysis likely aggravated by Eliquis. will hold Eliquis for now. 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 As per GI, patient can benefit by having his next endoscopy at at center that can do endoscopic ultrasound and endoscopic submucosal or subserosal resection of this lesion. This can be done by Dr Gabrielle Bradofrd at [facility] where Dr Krystal Orlando his PMD has privileges. Patient was advised as per GI to pursue this BRENDA after discharged. Dr Bradford can also determine whether or nor to repeat a colonoscopy. 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 Empiric PPI therapy to continue and hold off on Eliquis since high risk for the bleed. # HTN: Norvasc , coreg, and lasix continue . # DM : SSI , patient is Jardiance at home, on hold here since CrCl is less than 30 , will dc him on gleperimide #Recent hx of urinary retention with hematuria . probably traumatic form yanes . has h/o prostate cancer, on Flomax continue # Hx of A fib: agree with card that AC is high risk fro bleeding. cont coreg . hold eliquis - dc yanes if possible patient needs home oxygen that he run out of, will be delivered in am
--- NOTE | 2019-10-18 19:17 | PN ---
Physical Exam: SUBJECTIVE: No overnight events. Patient seen and examined. Pt was anxious and reports difficulty sleeping. OBJECTIVE: Vital Signs Period Temp Pulse Resp BP Sys/Knutson Pulse Ox Last 24 Hr 97.9 F-98.7 F 61-110 18-20 126-146/46-62 94-99 GENERAL: The patient is awake, alert, and fully oriented, anxious HEENT: NT/ NC, sclera anicteric, conjunctiva clear. No ptosis. dry mucous membranes. LUNGS: minimal wheezing. Sounds improved compared to yesterday. no crackles, no accessory muscle use. HEART: Regular rate and rhythm, S1, S2 without murmur, rub or gallop. ABDOMEN: Soft, nontender, nondistended, normoactive bowel sounds, no guarding, no rebound EXTREMITIES: Non-erythematous, non-edematous. NEUROLOGICAL: gait not observed. PSYCH: Normal mood, normal affect. SKIN: Warm, dry, normal turgor, no rashes or lesions noted Laboratory Results - last 24 hr 10/17/19 10/17/19 10/18/19 07:00 21:14 06:38 WBC RBC Hgb Hct MCV MCH MCHC RDW Plt Count MPV Absolute Neuts (auto) Neutrophils % Lymphocytes % Monocytes % Eosinophils % Basophils % Nucleated RBC % Sodium Potassium Chloride Carbon Dioxide Anion Gap BUN Creatinine Est GFR (CKD-EPI)AfAm Est GFR (CKD-EPI)NonAf POC Glucometer 172 74 Random Glucose Calcium Phosphorus Magnesium Total Bilirubin AST ALT Alkaline Phosphatase Total Protein Albumin Carcinoembryonic Ag 1.8 10/18/19 10/18/19 10/18/19 07:31 07:31 12:00 WBC 5.9 RBC 2.79 L Hgb 8.3 L Hct 24.9 L MCV 89.4 MCH 29.7 MCHC 33.2 RDW 19.1 H Plt Count 92 L MPV 8.4 Absolute Neuts (auto) 4.8 Neutrophils % 80.4 Lymphocytes % 5.8 L D Monocytes % 12.0 H Eosinophils % 1.4 Basophils % 0.4 Nucleated RBC % 0 Sodium 143 Potassium 4.0 Chloride 99 Carbon Dioxide 41 H Anion Gap 3 L BUN 44.2 H Creatinine 2.1 H Est GFR (CKD-EPI)AfAm 32.75 Est GFR (CKD-EPI)NonAf 28.26 POC Glucometer 100 Random Glucose 75 Calcium 8.0 L Phosphorus 2.7 Magnesium 2.5 H Total Bilirubin 1.1 H AST 18 ALT < 6 L Alkaline Phosphatase 55 Total Protein 5.4 L Albumin 2.8 L Carcinoembryonic Ag 10/18/19 16:29 WBC RBC Hgb Hct MCV MCH MCHC RDW Plt Count MPV Absolute Neuts (auto) Neutrophils % Lymphocytes % Monocytes % Eosinophils % Basophils % Nucleated RBC % Sodium Potassium Chloride Carbon Dioxide Anion Gap BUN Creatinine Est GFR (CKD-EPI)AfAm Est GFR (CKD-EPI)NonAf POC Glucometer 83 Random Glucose Calcium Phosphorus Magnesium Total Bilirubin AST ALT Alkaline Phosphatase Total Protein Albumin Carcinoembryonic Ag Active Medications Generic Name Dose Route Start Last Admin Trade Name Freq PRN Reason Stop Dose Admin Albuterol Sulfate 1 amp 10/16/19 09:50 Ventolin 0.083% Nebulizer Soln - NEB Q6H PRN SHORT OF BREATH/WHEEZING Albuterol/Ipratropium 1 amp 10/16/19 10:00 10/18/19 14:07 Duoneb - NEB 1 amp RTID [facility] Administration Amlodipine Besylate 10 mg 10/13/19 10:30 10/18/19 10:06 Norvasc - PO 10 mg DAILY [facility] Administration Atorvastatin Calcium 80 mg 10/13/19 22:00 10/17/19 21:18 Lipitor - PO 80 mg HS [facility] Administration Budesonide/Formoterol Fumarate 1 puff 10/13/19 10:00 10/18/19 10:09 Symbicort 160/4.5mcg - IH 1 puff BID [facility] Administration Carbidopa/Levodopa 1.5 combo 10/13/19 06:00 10/18/19 14:31 Sinemet *Cr* 50/200 - PO 1.5 combo TID [facility] Administration Carvedilol 25 mg 10/13/19 10:30 10/18/19 10:07 Coreg - PO 25 mg BID [facility] Administration Ergocalciferol 50,000 unit 10/23/19 10:00 Drisdol - PO Tu@1000 [facility] Ferrous Gluconate 324 mg 10/15/19 13:40 10/18/19 17:08 Fergon - PO 324 mg TIDCM [facility] Administration Hydralazine HCl 25 mg 10/13/19 10:30 10/18/19 10:06 Apresoline - PO 25 mg BID [facility] Administration Insulin Aspart 1 vial 10/13/19 11:00 10/18/19 16:32 Novolog Vial Sliding Scale - SQ Not Given ACHS [facility] Protocol Pantoprazole Sodium 40 mg 10/17/19 22:00 10/18/19 10:06 Protonix - PO 40 mg BID [facility] Administration Polyethylene Glycol 17 gm 10/14/19 11:45 10/18/19 10:06 Miralax (For Daily Use) - PO 17 gm DAILY [facility] Administration Ranolazine 500 mg 10/13/19 22:00 10/18/19 10:07 Ranexa - PO 500 mg BID [facility] Administration Tamsulosin HCl 0.4 mg 10/13/19 08:30 10/18/19 08:37 Flomax - PO 0.4 mg DAILY@0830 [facility] Administration ASSESSMENT/PLAN: ASSESSMENT/PLAN: 84 YO M PMH COPD, afib, HTN, Diastolic CHF, Parkinsons, HLD, prostate cancer, COPD, DM, anemia, CAD (2008 CABG) p/w SOB, LE edema, nausea, & vomiting. Admitted for acute CHF exacerbation. #Acute on Chronic CHF exacerbation. -c/w carvedilol 25 mg PO BID (home dose) -c/w hydralazine 25 mg PO BID (home), # Hemoptysis -likely from pulmonary edema - eliquis was held #DM: ISS #HTN - c/w amlodipine 10 mg PO daily (home), carvedilol 25 mg PO BID (home) -Will resume Losartan when renal status stabilizes #Anemia -Iron, TIBC, Iron sat, unsaturated IBC are low. Ferritin nml. MCV nml. Likely anemia of chronic disease -c/w ferrous gluconate -h/o prostate cancer s/p radiation. 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 GI c/s appreciated. GI discussed need for endoscopy after d/c w/ pt's family w/ center that is able to perform"endoscopic ultrasound & sub- mucosal/serosal resection of possible gastric adenoma. Dr. Gabrielle Bradford at [facility] recommended. EGD intervention of hemorrhage occurs. -CEA: 1.8 -c/w pantoprazole 40 mg PO daily # afib -H&H stable. Continue holding Eliquis -c/w carvedilol #urinary retention - c/w tamsulosin -hematuria likely from traumatic insertion #Elevated bicarb -bicarb on chem was elevated. ABG. ELEVATED: pH 7.479, PCO2 54.5, HCO3 39.5, Base excess 14.3 LOW PO2 78.8, #CAD Atorvastatin 80 mg QHS Ranexa 500 mg BID #FEN No IV fluids Monitor BMP Na+ controlled diet #DISPO d/c tomorrow Visit type - Emergency Visit Emergency Visit: Yes ED Registration Date: 10/13/19 Care time: The patient presented to the Emergency Department on the above date and was hospitalized for further evaluation of their emergent condition. - New Patient This patient is new to me today: No - Critical Care Critical Care patient: No - Medication Review Med list reviewed for High Risk Meds patients 65 and older: Yes ATTENDING PHYSICIAN STATEMENT I saw and evaluated the patient. I reviewed the resident's note and discussed the case with the resident. I agree with the resident's findings and plan as documented. SUBJECTIVE: OBJECTIVE: ASSESSMENT AND PLAN:
[2019-10-18] MEDS: ATORVASTATIN CA 80 MG TABLET (FP) PO SCH (21:33)
[2019-10-18] MEDS ORDERED: MELATONIN 5 MG TABLETS PO ONE (21:44)
[2019-10-19] MEDS: INSULIN SLIDING SCALE (NOVOLOG) 1 VIAL SQ SCH ×3 (06:32→17:02)
[2019-10-19] MEDS: ALBUTEROL SO4 2.5/IPRATROPIUM 0.5 INH SOL 3 ML VIAL.NEB. NEB SCH ×2 (08:16→14:15)
[2019-10-19] MEDS: TAMSULOSIN HCL 0.4 MG CAP PO SCH (08:26)
[2019-10-19] MEDS: FERROUS GLUCONATE 324 MG TAB (FP) PO SCH ×3 (08:26→17:02)
[2019-10-19] MEDS: CARVEDILOL 25 MG TABLET (FP) PO SCH (09:36)
[2019-10-19] MEDS: POLYETHYLENE GLYCOL 3350 119 GM BTL PO SCH (09:36)
[2019-10-19] MEDS: hydrALAZINE HCL 25 MG TABLET (FP) PO SCH (09:36)
[2019-10-19] MEDS: PANTOPRAZOLE 40 MG TABLET PO SCH (09:37)
[2019-10-19] MEDS: RANOLAZINE E.R. 500 MG TABLET (FP) PO SCH (09:37)
[2019-10-19] MEDS: amLODIPine BESYLATE 10 MG TABLET (FP) PO SCH (09:37)
[2019-10-19] MEDS: BUDESONIDE/FORMETEROL FUMARATE 160/4.5 mcg INHALER IH SCH (09:37)
--- NOTE | 2019-10-19 10:03 | PN ---
Progress Note (short form) - Note Progress Note: SUBJECTIVE: This is an 84 year old man with a history of HTN, hyperlipidemia, CAD, CABG, CHF (diatolic) , Paroxysmal atrial fib, chronic hypoxic respiratory failure, COPD, ILD, CKD, Parkinson disease who comes to the ED complaining of SOB, coughing up blood, nausea and vomiting, and worsening leg swelling. Since last visit 09/20/2019, had been admitted 09/24 for hemoptysis and COPD exacerbation. During the hospitalization, he had ANÍBAL and urinary retention requiring a Sandoval catheter which was removed prior to discharge. Lasix and Cozaar were held because of ANÍBAL. He was discharged on 09/30 on a prednisone taper. Pt has started seeing ?blood in mouth, unable to eat and SOB. In ER :Found to have Hb 5.7, negative Trop, elevated BNP 10/13: restless overnight; no acute cardiac events; seen by nephro 10/14: Denies chest pain, dyspnea or LE edema, hematuria and hemoptysis resolved 10/15: Denies chest pain or palpitations, less SOB 10/16: Resting comfortably, denies chest pain, dyspnea or palpitations 10/17: Resting comfortably, denies further hemoptysis, breathing continues to improve. No fevers, diuretics held per renal. 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 and SFA R>L ICA stenosis no plans for angio in future; Echo 05/24 Nl EF, grade II diastolic dysfunction Cath 2010 patent WEN>LAD, SVG>LPL, RI Orthostatic Hypotension Chest Pain Syndrome PAST SURGICAL HISTORY: CABG 2009 Carotid endartectomy: left Vital Signs Temperature 97.2 F L 10/19/19 09:45 Pulse Rate 66 10/19/19 09:45 Respiratory Rate 20 10/19/19 09:45 Blood Pressure 120/47 L 10/19/19 09:45 O2 Sat by Pulse Oximetry (%) 98 10/19/19 09:45 Cardiovascular: Yes: Regular Rate and Rhythm Respiratory: Yes: Diminished, On Nasal O2 Gastrointestinal: Yes: Soft, Hypoactive Bowel Sounds Edema: No Labs: CBC, BMP 10/18/19 07:31 10/18/19 07:31 Active Medications Albuterol Sulfate (Ventolin 0.083% Nebulizer Soln -) 1 amp NEB Q6H PRN PRN Reason: SHORT OF BREATH/WHEEZING Albuterol/Ipratropium (Duoneb -) 1 amp NEB RTID REPLACED BY [facility] Last Admin: 10/19/19 08:16 Dose: 1 amp Documented by: Amlodipine Besylate (Norvasc -) 10 mg PO DAILY REPLACED BY [facility] Last Admin: 10/19/19 09:37 Dose: 10 mg Documented by: Atorvastatin Calcium (Lipitor -) 80 mg PO HS REPLACED BY [facility] Last Admin: 10/18/19 21:33 Dose: 80 mg Documented by: Budesonide/Formoterol Fumarate (Symbicort 160/4.5mcg -) 1 puff IH BID REPLACED BY [facility] Last Admin: 10/19/19 09:37 Dose: 1 puff Documented by: Carbidopa/Levodopa (Sinemet *Cr* 50/200 -) 1.5 combo PO TID REPLACED BY [facility] Last Admin: 10/19/19 06:32 Dose: Not Given Documented by: Carvedilol (Coreg -) 25 mg PO BID REPLACED BY [facility] Last Admin: 10/19/19 09:36 Dose: 25 mg Documented by: Ergocalciferol (Drisdol -) 50,000 unit PO Tu@1000 REPLACED BY [facility] Ferrous Gluconate (Fergon -) 324 mg PO TIDCM REPLACED BY [facility] Last Admin: 10/19/19 08:26 Dose: 324 mg Documented by: Hydralazine HCl (Apresoline -) 25 mg PO BID REPLACED BY [facility] Last Admin: 10/19/19 09:36 Dose: 25 mg Documented by: Insulin Aspart (Novolog Vial Sliding Scale -) 1 vial SQ ACHS REPLACED BY [facility]; Protocol Last Admin: 10/19/19 06:32 Dose: Not Given Documented by: Pantoprazole Sodium (Protonix -) 40 mg PO BID REPLACED BY [facility] Last Admin: 10/19/19 09:37 Dose: 40 mg Documented by: Polyethylene Glycol (Miralax (For Daily Use) -) 17 gm PO DAILY REPLACED BY [facility] Last Admin: 10/19/19 09:36 Dose: 17 gm Documented by: Ranolazine (Ranexa -) 500 mg PO BID REPLACED BY [facility] Last Admin: 10/19/19 09:37 Dose: 500 mg Documented by: Tamsulosin HCl (Flomax -) 0.4 mg PO DAILY@0830 REPLACED BY [facility] Last Admin: 10/19/19 08:26 Dose: 0.4 mg Documented by: Problem List - Problems (1) Acute on chronic diastolic (congestive) heart failure Code(s): I50.33 - ACUTE ON CHRONIC DIASTOLIC (CONGESTIVE) HEART FAILURE (2) Anemia Code(s): D64.9 - ANEMIA, UNSPECIFIED Qualifiers: Anemia type: unspecified type Qualified Code(s): D64.9 - Anemia, unspecified (3) PAF (paroxysmal atrial fibrillation) Code(s): I48.0 - PAROXYSMAL ATRIAL FIBRILLATION (4) S/P CABG (coronary artery bypass graft) Code(s): Z95.1 - PRESENCE OF AORTOCORONARY BYPASS GRAFT (5) DM Diabetes mellitus Code(s): E11.9 - TYPE 2 DIABETES MELLITUS WITHOUT COMPLICATIONS Assessment/Plan 1. Acute on chronic LV diastolic failure improving 2. Hemoptysis resolved 2. CAD s/p CABG, angina pectoris 3. HTN 4. Hypercholesterolemia 5. Paroxysmal Atrial fibrillation 6. COPD and ILD 7. Acute on CKD improving 8. Carotid stenosis s/p CEA (left) 9. PAD 10. Parkinson's 11. Anemia/thrombocytopenia PLAN: Same: 1. Diuretics held per renal with monitor diuretic need, renal function and electrolytes 2. Continue Carvedilol 25 mg BID, Hydralazine 25 mg BID and Amlodipine 10 mg QD. Currently not on Losartan. Resume when renal function stabilizes 3. Ranexa 500 mg BID 4. Atorvastatin 80 mg QHS 5. Currently not on anticoagulation with high bleeding risk. Possible NELY miguel sure may be considered in the future if patient is not going to be candidate for intermediate teacher anticoagulation 6. 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 If hemorrhage ensues then interventional EGD would be undertaken while here. 6. BD, O2 to keep SpO2 >90%, DVT prophylaxis -
--- NOTE | 2019-10-19 12:19 | PN ---
Progress Note (short form) - Note Progress Note: PULMONARY Has developed agitation and confusion over past 24 hrs Has a 1:1 in room VSS/AFEBRILE Gen: NAD at rest Heart: RRR Lung: decreased breath sounds at the bases Abd: soft, nontender Ext: no edema LABS/MEDS/NOTES/IMAGES REVIEWED A/P Acute on Chronic Diastolic Heart Failure Hemoptysis resolved COPD Chronic Hypoxic Respiratory Failure Interstitial Lung Disease Atrial Fibrilation HTN Hyperlipidemia CKD Anemia Thrombocytopenia Confusion/Agitation - lasix as needed - monitor urine output, creatinine - monitor/quantify hemoptysis if continues - inhaled bronchodilators - rate control - O2 to keep SpO2 >90% - DVT prophylaxis - Workup for confusion/agitation Marianna ISLAS MD
--- NOTE | 2019-10-19 14:34 | PN ---
Progress Note, Physician History of Present Illness: Pt seen and examined. He is agitated today. He denies shortness of breath. - Current Medication List Current Medications: Active Medications Albuterol Sulfate (Ventolin 0.083% Nebulizer Soln -) 1 amp NEB Q6H PRN PRN Reason: SHORT OF BREATH/WHEEZING Albuterol/Ipratropium (Duoneb -) 1 amp NEB RTID [facility] Last Admin: 10/19/19 08:16 Dose: 1 amp Documented by: Amlodipine Besylate (Norvasc -) 10 mg PO DAILY [facility] Last Admin: 10/19/19 09:37 Dose: 10 mg Documented by: Atorvastatin Calcium (Lipitor -) 80 mg PO HS [facility] Last Admin: 10/18/19 21:33 Dose: 80 mg Documented by: Budesonide/Formoterol Fumarate (Symbicort 160/4.5mcg -) 1 puff IH BID [facility] Last Admin: 10/19/19 09:37 Dose: 1 puff Documented by: Carbidopa/Levodopa (Sinemet *Cr* 50/200 -) 1.5 combo PO TID [facility] Last Admin: 10/19/19 06:32 Dose: Not Given Documented by: Carvedilol (Coreg -) 25 mg PO BID [facility] Last Admin: 10/19/19 09:36 Dose: 25 mg Documented by: Ergocalciferol (Drisdol -) 50,000 unit PO Tu@1000 [facility] Ferrous Gluconate (Fergon -) 324 mg PO TIDCM [facility] Last Admin: 10/19/19 11:59 Dose: 324 mg Documented by: Hydralazine HCl (Apresoline -) 25 mg PO BID [facility] Last Admin: 10/19/19 09:36 Dose: 25 mg Documented by: Insulin Aspart (Novolog Vial Sliding Scale -) 1 vial SQ ACHS [facility]; Protocol Last Admin: 10/19/19 11:58 Dose: Not Given Documented by: Pantoprazole Sodium (Protonix -) 40 mg PO BID [facility] Last Admin: 10/19/19 09:37 Dose: 40 mg Documented by: Polyethylene Glycol (Miralax (For Daily Use) -) 17 gm PO DAILY [facility] Last Admin: 10/19/19 09:36 Dose: 17 gm Documented by: Ranolazine (Ranexa -) 500 mg PO BID [facility] Last Admin: 10/19/19 09:37 Dose: 500 mg Documented by: Tamsulosin HCl (Flomax -) 0.4 mg PO DAILY@0830 [facility] Last Admin: 10/19/19 08:26 Dose: 0.4 mg Documented by: - Objective Vital Signs: Vital Signs Temperature 97.2 F L 10/19/19 09:45 Pulse Rate 65 10/19/19 10:43 Respiratory Rate 20 10/19/19 09:45 Blood Pressure 120/47 L 10/19/19 09:45 O2 Sat by Pulse Oximetry (%) 95 10/19/19 10:43 Constitutional: Yes: Calm Eyes: Yes: Conjunctiva Clear HENT: Yes: Atraumatic Neck: Yes: Supple Cardiovascular: Yes: S1, S2 Gastrointestinal: Yes: Soft Genitourinary: Yes: WNL Musculoskeletal: Yes: WNL Edema: No Neurological: Yes: Oriented Psychiatric: Yes: Oriented Labs: CBC, BMP 10/18/19 07:31 10/18/19 07:31 INR, PTT INR 2.11 (0.83-1.09) H 10/13/19 00:10 Assessment/Plan Current Medications Generic Name Dose Route Start Last Admin Trade Name Freq PRN Reason Stop Dose Admin Albuterol Sulfate 1 amp 10/16/19 09:50 Ventolin 0.083% Nebulizer Soln - NEB Q6H PRN SHORT OF BREATH/WHEEZING Albuterol/Ipratropium 1 amp 10/16/19 10:00 10/19/19 08:16 Duoneb - NEB 1 amp RTID [facility] Administration Amlodipine Besylate 10 mg 10/13/19 10:30 10/19/19 09:37 Norvasc - PO 10 mg DAILY [facility] Administration Atorvastatin Calcium 80 mg 10/13/19 22:00 10/18/19 21:33 Lipitor - PO 80 mg HS [facility]ANJAN Administration Budesonide/Formoterol Fumarate 1 puff 10/13/19 10:00 10/19/19 09:37 Symbicort 160/4.5mcg - IH 1 puff BID [facility]ANJAN Administration Carbidopa/Levodopa 1.5 combo 10/13/19 06:00 10/19/19 06:32 Sinemet *Cr* 50/200 - PO Not Given TID [facility] Carvedilol 25 mg 10/13/19 10:30 10/19/19 09:36 Coreg - PO 25 mg BID [facility]JAN Administration Ergocalciferol 50,000 unit 10/23/19 10:00 Drisdol - PO Tu@1000 [facility] Ferrous Gluconate 324 mg 10/15/19 13:40 10/19/19 11:59 Fergon - PO 324 mg TIDCM [facility] Administration Hydralazine HCl 25 mg 10/13/19 10:30 10/19/19 09:36 Apresoline - PO 25 mg BID [facility] Administration Insulin Aspart 1 vial 10/13/19 11:00 10/19/19 11:58 Novolog Vial Sliding Scale - SQ Not Given ACHS [facility] Protocol Pantoprazole Sodium 40 mg 10/17/19 22:00 10/19/19 09:37 Protonix - PO 40 mg BID [facility] Administration Polyethylene Glycol 17 gm 10/14/19 11:45 10/19/19 09:36 Miralax (For Daily Use) - PO 17 gm DAILY [facility] Administration Ranolazine 500 mg 10/13/19 22:00 10/19/19 09:37 Ranexa - PO 500 mg BID [facility] Administration Tamsulosin HCl 0.4 mg 10/13/19 08:30 10/19/19 08:26 Flomax - PO 0.4 mg DAILY@0830 [facility] Administration Impression 1. ckd 2. anemia 3. urinary obstruction 4. hemoptysis 5. chf 6. cad 7. htn 8. a-fib Plan - cont to monitor renal function - will need outpt follow up - cont lasix at 40 mg daily - cont iron supplements - anca and gbm neg
--- NOTE | 2019-10-19 14:56 | DS ---
Physical Exam: SUBJECTIVE: Patient seen and examined. Pt endorsed difficulty sleeping in the morning. OBJECTIVE: Vital Signs Period Temp Pulse Resp BP Sys/Knutson Pulse Ox Last 24 Hr 97.2 F-98.8 F 65-110 18-20 120-146/43-62 94-98 PHYSICAL EXAM Pt refused physical exam in the morning. LABS Laboratory Results - last 24 hr 10/13/19 10/18/19 10/18/19 00:50 16:29 20:55 POC Glucometer 83 109 Blood Type O NEGATIVE Antibody Screen Negative Crossmatch See Detail 10/19/19 11:57 POC Glucometer 127 Blood Type Antibody Screen Crossmatch HOSPITAL COURSE: Pt is 84 YO M PMH COPD, afib, HTN, Diastolic CHF, Parkinsons, HLD, prostate cancer, COPD, DM, anemia, CAD (2008 CABG) p/w SOB, LE edema, nausea, & vomiting. Admitted for acute CHF exacerbation. he was treated with carvedilol 25 mg PO BID & hydralazine 25 mg PO. Pt's breathing improved. Amlodipine & carvedilol were given for his HTN. Losartan was held due to his renal status.Pt also had urinary retention, so a yanes was inserted. However, his urination improved and the yanes was removed. Tamsulosin was continued for him. He came in with hemopytsis, so his eliquis was held. This was likely from the pulmonary edema. Hemoglobin & hematocrit were low in the 6-7 range. Iron studies showed LOW Iron, TIBC, Iron sat, unsaturated IBC are low. Ferritin & MCV were nml. The anemia was treated with ferrous gluconate. Previous EGD and colonoscopy reveals a friable gastric polyp; biopsies showed an adenoma with low grade dysplasia. Smaller antral polyps revealed intestinal metaplasia. Pt's eliquis was not given anticoagulation due to his friable polyp. 3X3 cm mass. Pt has required 4 PRBCs. GI evaluated pt and recommended that the pt neeeds endoscopic ultrasound. Rapid response was called in the afternoon. He was found to be acutely altered and confused. He was unable to follow directions for neurological exam. CT head shows chronic infarcts, however TIA is suspected. Pt is unable to receive anticoagulation due to GI bleed. Pt was admitted to [facility]. Admitting physician is Dr. Huber Ortiz. 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 Date of Discharge: 10/19/19 Minutes to complete discharge: 50 Discharge Summary Problems reviewed: Yes Reason For Visit: CONGESTIVE HEART FAILURE, ANEMIA, PNUEUMONIA Current Active Problems Acute on chronic diastolic (congestive) heart failure (Acute) Anemia (Acute) Anemia due to chronic blood loss (Acute) Gastric adenoma (Acute) Gastric dysplasia (Acute) HTN (hypertension) (Acute) Hemoptysis (Acute) Hemoptysis (Acute) Hypercholesterolemia (Acute) Occult blood in stools (Acute) PAF (paroxysmal atrial fibrillation) (Acute) Peripheral vascular disease (Acute) Pneumonia (Acute) Pulmonary hypertension (Acute) S/P CABG (coronary artery bypass graft) (Acute) CHF (congestive heart failure) (Chronic) Condition: Stable - Instructions Diet, Activity, Other Instructions: You came to the hospital for shortness of breath. You were given medication to help get fluid off your lungs. You were also anemic, requiring blood transfusions. You are now stable for discharge. MEDICATIONS Please do NOT take your losartan. Please do NOT continue your eliquis. Please take lasix 40 mg daily. Please continue Carvedilol 25 mg twice a day, Hydralazine 25 mg twice a day and Amlodipine 10 mg daily. Please continue Ranexa 500 mg twice a day Please take Atorvastatin 80 mg every night FOLLOW-UP Please follow-up with primary care physician, Dr. Orlando, for general health maintenance within 1 week. Please follow-up with fondant cooker, Dr. Bradford, for an Endoscopy/endoscopic ultrasound for evaluation. You need to follow up at [facility] for further evaluation of your colon adenoma and anemia. Please follow-up with event planning intern, Dr. Jaime, regarding your heart condition. Please follow up with an power brake operator, Dr. Ibanez , regarding your diabetes You are being discharged to [facility] If you have new, worsening, or concerning symptoms please return to the ED or call 911. Referrals: Damien Ibanez MD [Staff Physician] - Gabrielle Bradford MD [Staff Physician] - Marlon Sanders MD [Staff Physician] - Se Jaime MD [Staff Physician] - Krystal Orlando [Primary Care Provider] - Disposition: TRANSFER ACUTE CARE/OTHER HOSP - Home Medications Comprehensive Discharge Medication List: Ambulatory Orders Amlodipine Besylate 10 mg PO DAILY 09/25/19 Atorvastatin Ca [Lipitor] 80 mg PO HS 09/25/19 Carvedilol 25 mg PO BID 09/25/19 Glimepiride 1 mg PO DAILY 09/25/19 Hydralazine HCl 25 mg PO BID 09/25/19 Pantoprazole Sodium 40 mg PO DAILY 09/25/19 Ranolazine [Ranexa -] 500 mg PO BID 09/25/19 Budesonide/Formeterol Fumarate [SYMBICORT 160/4.5mcg -] 1 inh PO BID 09/26/19 Carbidopa/Levodopa [Carbidopa-Levo ER 50-200 Tab] 1.5 each PO TID 09/26/19 Albuterol 0.083% Nebulizer Polina [Ventolin 0.083% Nebulizer Soln -] 1 amp NEB Q6H PRN amp 10/19/19 Albuterol 2.5/Ipratropium 0.5 [Duoneb -] 1 amp NEB RTID amp 10/19/19 Ergocalciferol [Vitamin D2] 50,000 unit PO Tu@1000 capsule 10/19/19 Ferrous Gluconate [Fergon -] 324 mg PO TIDCM tab 10/19/19 Furosemide [Lasix] 40 mg PO DAILY #30 tablet 10/19/19 Insulin Sliding Scale [Novolog Vial Sliding Scale -] 1 vial SQ ACHS units 10/19/19 Polyethylene Glycol 3350 [Miralax 119 gm Btl -] 17 gm PO DAILY #0 bottle 10/19/19 Tamsulosin HCl [Flomax -] 0.4 mg PO DAILY@0830 cap.er.24h 10/19/19 This patient is new to me today: No Emergency Visit: Yes ED Registration Date: 10/13/19 Care time: The patient presented to the Emergency Department on the above date and was hospitalized for further evaluation of their emergent condition. Critical Care patient: No - Discharge Referral Referred to [facility] Med [facility] No ATTENDING PHYSICIAN STATEMENT I saw and evaluated the patient. I reviewed the resident's note and discussed the case with the resident. I agree with the resident's findings and plan as documented. SUBJECTIVE: OBJECTIVE: ASSESSMENT AND PLAN:
[2019-10-19 15:39] LABS: ARTERIAL BLD GAS O2 SATURATION 97.3 mmHg (95-98); ARTERIAL BLOOD GAS BASE EXCESS 10.4 mmol/L (-2-2); ARTERIAL BLOOD GAS PO2 84.5 mmHg (80-100); ARTERIAL BLOOD GAS pH 7.535 (7.350-7.450)
--- NOTE | 2019-10-19 15:54 | RAPID ---
Physical Examination Vital Signs: Rapid response was called overhead, rapid response team came right away. 84 year old male was found altered, confused. Suspected stroke, [facility] called, patient went to CT BRENDA. Dr. Maher (Neuro) made aware. CT report showed nothing acute but TIA suspected. Labs drawn. Patient assessed, is able to say his name, able to blink when asked. Unable to do full NIHSS due to confusion. Unable to give AC due to GI bleed. RR Time: 15:11 - team arrived immediately Ida Mac time: 15:14 Vitals at time of call BP 110/53 HR 151 Glucose 131 PE: GENERAL: Patient shaking, less responsive than baseline according to primary team there, unable to speak clearly, though he usually can speak and understand Welsh he was only answering in Amharic and even in Amharic he was not answering as clearly or coherently as usual. CV: tachy Neuro: unable to assess fully due to patient's AMS Vital Signs Temperature 97.2 F L 10/19/19 09:45 Pulse Rate 65 10/19/19 10:43 Respiratory Rate 20 10/19/19 09:45 Blood Pressure 120/47 L 10/19/19 09:45 O2 Sat by Pulse Oximetry (%) 95 10/19/19 10:43 Labs: CBC, BMP 10/18/19 07:31 10/18/19 07:31 Suspected CVA MD Exam Time (Ida Mac Time): 15:14 CT Stroke ordered: Yes Stat "Ida Mac" Consult to Neurology called & responded: Yes Last Known Well (Date): 10/19/19 Last Known Well (Time): 13:00 - NIH Stroke Scale/Score Level of consciousness: Alert
[2019-10-19 17:17] LABS: BASO % 0.3 % (0-2.0); EOS % 0.7 % (0-4.5); HEMATOCRIT 25.4 % (35.4-49); HEMOGLOBIN 8.4 GM/dL (11.7-16.9); LYMPH % 5.2 % (8-40); MCH 29.9 pg (25.7-33.7); MEAN CELL VOLUME 90.5 fl (80-96); MEAN PLT VOLUME 8.7 fl (7.5-11.1); MONO % 13.8 % (3.8-10.2); PLATELET COUNT 104 K/MM3 (134-434); RBC 2.81 M/mm3 (4.00-5.60); RDW 19.8 % (11.9-15.9)
[2019-10-19 17:23] LABS: ARTERIAL BLD GAS O2 SATURATION 99.6 mmHg (95-98); ARTERIAL BLOOD GAS BASE EXCESS 13.5 mmol/L (-2-2); ARTERIAL BLOOD GAS PO2 227.9 mmHg (80-100); ARTERIAL BLOOD GAS pH 7.544 (7.350-7.450)
[2019-10-19 17:25] LABS: ALLENS TEST POSITIVE
--- NOTE | 2019-10-19 17:30 | CON.NEURO ---
Consult - Past Medical History Cardio/Vascular: Yes: AFIB (paroxysmal), CAD, CHF (diastolic), HTN, Mitral Insufficiency (and TR), Pulmonary Hypertension, Other (severe peripheral vascular disease) Pulmonary: Yes: Bronchitis, COPD, O2 Dependent, Pneumonia Gastrointestinal: Yes: Other (EGD 2016 gastric adenoma with low grade dysplasia, colon adenomas removed 2016- Dr Gardner) Renal/: Yes: Renal Inusuff Endocrine: Yes: Diabetes Mellitus - Past Surgical History Past Surgical History: Yes: CABG (2009 [facility] [place]), Carotid Endarterectomy (left), Colonoscopy, Upper Endoscopy - Alcohol/Substance Use Hx Alcohol Use: Yes (rare) History of Substance Use: reports: None - Smoking History Smoking history: Former smoker Have you smoked in the past 12 months: No Aproximately how many cigarettes per day: 0 If you are a former smoker, when did you quit?: 1986 - Social History Usual Living Arrangement: With Spouse ADL: Family Assistance 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 History of Recent Travel: No Home Medications - Allergies Allergies/Adverse Reactions: Allergies Allergy/AdvReac Type Severity Reaction Status Date / Time No Known Allergies Allergy Verified 10/12/19 23:07 - Home Medications Home Medications: Ambulatory Orders Amlodipine Besylate 10 mg PO DAILY 09/25/19 Atorvastatin Ca [Lipitor] 80 mg PO HS 09/25/19 Carvedilol 25 mg PO BID 09/25/19 Glimepiride 1 mg PO DAILY 09/25/19 Hydralazine HCl 25 mg PO BID 09/25/19 Pantoprazole Sodium 40 mg PO DAILY 09/25/19 Ranolazine [Ranexa -] 500 mg PO BID 09/25/19 Budesonide/Formeterol Fumarate [SYMBICORT 160/4.5mcg -] 1 inh PO BID 09/26/19 Carbidopa/Levodopa [Carbidopa-Levo ER 50-200 Tab] 1.5 each PO TID 09/26/19 Albuterol 0.083% Nebulizer Polina [Ventolin 0.083% Nebulizer Soln -] 1 amp NEB Q6H PRN amp 10/19/19 Albuterol 2.5/Ipratropium 0.5 [Duoneb -] 1 amp NEB RTID amp 10/19/19 Ergocalciferol [Vitamin D2] 50,000 unit PO Tu@1000 capsule 10/19/19 Ferrous Gluconate [Fergon -] 324 mg PO TIDCM tab 10/19/19 Furosemide [Lasix] 40 mg PO DAILY #30 tablet 10/19/19 Insulin Sliding Scale [Novolog Vial Sliding Scale -] 1 vial SQ ACHS units 10/19/19 Polyethylene Glycol 3350 [Miralax 119 gm Btl -] 17 gm PO DAILY #0 bottle 10/19/19 Tamsulosin HCl [Flomax -] 0.4 mg PO DAILY@0830 cap.er.24h 10/19/19 Physical Exam-Neuro Vital Signs: Vital Signs Temperature 98.7 F 10/19/19 16:03 Pulse Rate 59 L 10/19/19 16:03 Respiratory Rate 22 H 10/19/19 16:03 Blood Pressure 138/47 L 10/19/19 16:03 O2 Sat by Pulse Oximetry (%) 99 10/19/19 16:03 Labs: CBC, BMP 10/19/19 16:50 INR, PTT INR 2.11 (0.83-1.09) H 10/13/19 00:10 Assessment/Plan cc letharziness and shaking of leg HPI 84 year old male hsitory of HTN,CHF,DM,COPD,CAD s/p cabg, atrial fibrillation, PD, Prosate cancer, HLD, Asthma. Patient was admitted for copd exacerbation and hemoptysis. Patinet suddenly become lethargic and more shaking in lower extremity. Patient is being treated with sinemet ( 50/200) 1.5 chelsi po tid. He was on eliquis and was stopped due to polyp. Recent Travel: PAST MEDICAL HISTORY: HTN, CHF, DM, COPD, CAD s/p CABG 2008, recurrent PNA (2 L home o2), a fib, parkinson's disease, prostate cancer, HLD, Gastric and Colon polyps, Asthma, Anemia PAST SURGICAL HISTORY: CABG 2008 Carotid endartectomy Social History: Smoking: Alcohol: Drugs: Allergies No Known Allergies Allergy (Verified 10/12/19 23:07) HOME MEDICATIONS: Home Medications Medication Instructions Recorded Amlodipine Besylate 10 mg PO DAILY 09/25/19 Apixaban [Eliquis] 2.5 mg PO BID 09/25/19 Atorvastatin Ca [Lipitor] 80 mg PO HS 09/25/19 Carvedilol 25 mg PO BID 09/25/19 Empagliflozin [Jardiance] 25 mg PO DAILY 09/25/19 Ergocalciferol (Vitamin D2) 5,000 unit PO WEEKLY 09/25/19 [Vitamin D2] Glimepiride 1 mg PO DAILY 09/25/19 Hydralazine HCl 25 mg PO BID 09/25/19 Pantoprazole Sodium 40 mg PO DAILY 09/25/19 Ranolazine [Ranexa -] 500 mg PO BID 09/25/19 Budesonide/Formeterol Fumarate 1 inh PO BID 09/26/19 [SYMBICORT 160/4.5mcg -] Carbidopa/Levodopa [Carbidopa-Levo 1.5 each PO TID 09/26/19 ER 50-200 Tab] Ferrous Sulfate [Feosol] 325 mg PO BIDWM #60 ud 10/01/19 Prednisone 10 mg PO DAILY 7 Days #12 tablet 10/01/19 Silodosin [Rapaflo] 8 mg PO DAILY #30 capsule 10/01/19 ROS,FH,SH reviewed in chart NEUROLOGICAL EXAMINATION Alert , speech is dysarthric, neck is supple vss oriented x 1 no face asymmetry moving all extremity there is jerky motion of lower extremity and rapid repeatetive movement ct head showed 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 Sudden change in mental status ? possibility of stroke cant be ruled as he has history of atrial fibrillation and he is off anticoagulation , also on statin , ct showed no acute bleed 2. rapid repetetive motion of lower extremity and upper extermity , seems to be tardive dyskinesia Plan - stroke work up including mri of brain and carotid ultrasoun( he has history of carotid endartectomy) - eeg , though clinically less likely to be seizure - sinemet ( 50/200) can be reduce to 1 tab po qid - given patient complicated history and requiring other work up including ( endocscopic ultrasound) , patient will benefit transfer to tertiary level care. - spoke to nursing and house staff - dvt prophylaxis, speech and pt - consider aspirin , if ok with primary - 35 minute cc time. Thanking you so much Juancho Maher MD
[2019-10-19 17:50] LABS: ANION GAP 3 MMOL/L (8-16); CALCIUM 8.1 mg/dL (8.5-10.1); CHLORIDE 97 mmol/L (98-107); CO2 41 mmol/L (21-32); CREATININE 2.6 mg/dL (0.55-1.3); GLUCOSE,RANDOM 129 mg/dL (74-106); MAGNESIUM 2.6 mg/dL (1.8-2.4); PHOSPHOROUS 4.3 mg/dL (2.5-4.9); POTASSIUM 4.7 mmol/L (3.5-5.1); SODIUM 141 mmol/L (136-145)
[2019-10-19 17:51] LABS: ALBUMIN 3.1 g/dl (3.4-5.0); BLOOD UREA NITROGEN 47.2 mg/dL (7-18); CALCIUM 8.4 mg/dL (8.5-10.1); CREATININE 2.7 mg/dL (0.55-1.3); POTASSIUM 4.7 mmol/L (3.5-5.1); TOT PROT 5.7 g/dl (6.4-8.2)
[2019-10-19 18:09] VITALS: PULSE 58
[2019-10-19 19:04] LABS: PH,URINE 7.5 (5.0-8.0); URINE APPEARANCE CLEAR; URINE BILIRUBIN NEGATIVE (NEGATIVE); URINE COLOR DK YELLOW; URINE GLUCOSE (UA) 1+ (NEGATIVE); URINE KETONE NEGATIVE (NEGATIVE); URINE LEUK ESTERASE NEGATIVE (NEGATIVE); URINE NITRITE NEGATIVE (NEGATIVE); URINE PROTEIN NEGATIVE (NEGATIVE)
[2019-10-19 21:31] VITALS: BP 117/44; TEMP 98.4
--- NOTE | 2019-10-20 08:52 | PN ---
Teaching Attending Note Name of Resident: Arnulfo Li ATTENDING PHYSICIAN STATEMENT I saw and evaluated the patient. I reviewed the resident's note and discussed the case with the resident. I agree with the resident's findings and plan as documented. SUBJECTIVE: Patient is lethargic today, in and out of dysartheria, knows where he is , restless, with jerky movements. OBJECTIVE: Vital Signs Temperature 98.4 F 10/19/19 20:00 Pulse Rate 58 L 10/19/19 20:00 Respiratory Rate 22 H 10/19/19 20:00 Blood Pressure 117/44 L 10/19/19 20:00 O2 Sat by Pulse Oximetry (%) 97 10/19/19 20:00 PE: per resident's note Jerky movements , in and out of dysartheria , oriented x 2 , no weakness, no sensory loss, neck is supple. CBCD WBC 6.0 K/mm3 (4.0-10.0) 10/19/19 16:50 WBC Cancelled 10/19/19 16:50 RBC 2.81 M/mm3 (4.00-5.60) L 10/19/19 16:50 RBC Cancelled 10/19/19 16:50 Hgb 8.4 GM/dL (11.7-16.9) L 10/19/19 16:50 Hgb Cancelled 10/19/19 16:50 Hct 25.4 % (35.4-49) L 10/19/19 16:50 Hct Cancelled 10/19/19 16:50 MCV 90.5 fl (80-96) 10/19/19 16:50 MCV Cancelled 10/19/19 16:50 MCHC 33.0 g/dl (32.0-35.9) 10/19/19 16:50 MCHC Cancelled 10/19/19 16:50 RDW 19.8 % (11.9-15.9) H 10/19/19 16:50 RDW Cancelled 10/19/19 16:50 Plt Count 104 K/MM3 (134-434) L 10/19/19 16:50 Plt Count Cancelled 10/19/19 16:50 MPV 8.7 fl (7.5-11.1) 10/19/19 16:50 MPV Cancelled 10/19/19 16:50 CMP Sodium 141 mmol/L (136-145) 10/19/19 16:50 Sodium 142 mmol/L (136-145) 10/19/19 16:50 Potassium 4.7 mmol/L (3.5-5.1) 10/19/19 16:50 Potassium 4.7 mmol/L (3.5-5.1) 10/19/19 16:50 Chloride 97 mmol/L (98-107) L 10/19/19 16:50 Chloride 98 mmol/L (98-107) 10/19/19 16:50 Carbon Dioxide 37 mmol/L (21-32) H 10/19/19 16:50 Carbon Dioxide 41 mmol/L (21-32) H 10/19/19 16:50 Anion Gap 3 MMOL/L (8-16) L 10/19/19 16:50 Anion Gap 6 MMOL/L (8-16) L 10/19/19 16:50 BUN 47.0 mg/dL (7-18) H 10/19/19 16:50 BUN 47.2 mg/dL (7-18) H 10/19/19 16:50 Creatinine 2.6 mg/dL (0.55-1.3) H 10/19/19 16:50 Creatinine 2.7 mg/dL (0.55-1.3) H 10/19/19 16:50 Random Glucose 128 mg/dL (74-106) H 10/19/19 16:50 Random Glucose 129 mg/dL (74-106) H 10/19/19 16:50 Calcium 8.1 mg/dL (8.5-10.1) L 10/19/19 16:50 Calcium 8.4 mg/dL (8.5-10.1) L 10/19/19 16:50 Total Bilirubin 1.0 mg/dL (0.2-1) 10/19/19 16:50 AST 18 U/L (15-37) 10/19/19 16:50 ALT 8 U/L (13-61) L 10/19/19 16:50 Alkaline Phosphatase 68 U/L (45-117) 10/19/19 16:50 Total Protein 5.7 g/dl (6.4-8.2) L 10/19/19 16:50 Albumin 3.1 g/dl (3.4-5.0) L 10/19/19 16:50 CARDIAC ENZYMES Creatine Kinase 59 U/L (26-308) 10/19/19 16:50 Troponin I < 0.02 ng/ml (0.00-0.05) 10/19/19 16:50 Home Medications Medication Instructions Recorded Amlodipine Besylate 10 mg PO DAILY 09/25/19 Atorvastatin Ca [Lipitor] 80 mg PO HS 09/25/19 Carvedilol 25 mg PO BID 09/25/19 Glimepiride 1 mg PO DAILY 09/25/19 Hydralazine HCl 25 mg PO BID 09/25/19 Pantoprazole Sodium 40 mg PO DAILY 09/25/19 Ranolazine [Ranexa -] 500 mg PO BID 09/25/19 Budesonide/Formeterol Fumarate 1 inh PO BID 09/26/19 [SYMBICORT 160/4.5mcg -] Carbidopa/Levodopa [Carbidopa-Levo 1.5 each PO TID 09/26/19 ER 50-200 Tab] Albuterol 0.083% Nebulizer Polina 1 amp NEB Q6H PRN amp 10/19/19 [Ventolin 0.083% Nebulizer Soln -] Albuterol 2.5/Ipratropium 0.5 1 amp NEB RTID amp 10/19/19 [Duoneb -] Ergocalciferol [Vitamin D2] 50,000 unit PO Tu@1000 capsule 10/19/19 Ferrous Gluconate [Fergon -] 324 mg PO TIDCM tab 10/19/19 Furosemide [Lasix] 40 mg PO DAILY #30 tablet 10/19/19 Insulin Sliding Scale [Novolog 1 vial SQ ACHS units 10/19/19 Vial Sliding Scale -] Polyethylene Glycol 3350 [Miralax 17 gm PO DAILY #0 bottle 10/19/19 119 gm Btl -] Tamsulosin HCl [Flomax -] 0.4 mg PO DAILY@0830 cap.er.24h 10/19/19 ct head showed 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 patient has a hx Afib on Eliquis, which was stopped due to having hemoptysis. patient has a Afib. had stroke like symptoms, stat head CT chronic infarcts. As per GI , patient needs EUS and endoscopic resection of gastric adenoma with dysplasia or perhaps malignancy. We need to transfer the patient to tertiary care, for appropiate care and management since patient is having , stroke like symptoms . Patient is off AC now due to bleed. and high risk for stroke due to having Afib. # Acute on chronic diastolic CHF exacerbation: on IV lasix BID and coreg continue # ARF over chronic: nephro on the case , will continue to monitor creatinine 2.1 #chronic COPD on 2 liter oxygen continue #Acute blood loss s/p hemoptysis likely aggravated by Eliquis. will hold Eliquis for now. 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 As per GI, patient can benefit by having his next endoscopy at at center that can do endoscopic ultrasound and endoscopic submucosal or subserosal resection of this lesion. This can be done by Dr Gabrielle Bradford at [facility] where Dr Krystal Orlando his PMD has privileges. Patient was advised as per GI to pursue this BRENDA after discharged. Dr Bradford can also determine whether or nor to repeat a colonoscopy. 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 Empiric PPI therapy to continue and hold off on Eliquis since high risk for the bleed. # HTN: Norvasc , coreg, and lasix continue . # DM : SSI , patient is Jardiance at home, on hold here since CrCl is less than 30 , will dc him on gleperimide #Recent hx of urinary retention with hematuria . probably traumatic form yanes . has h/o prostate cancer, on Flomax continue # Hx of A fib: agree with card that AC is high risk fro bleeding. cont coreg . hold eliquis will transfer the patient to tertiary care cc time of 35min.
--- NOTE | 2019-10-20 15:04 | EKG ---
Test Reason : Blood Pressure : / mmHG Vent. Rate : 059 BPM Atrial Rate : 059 BPM P-R Int : 232 ms QRS Dur : 096 ms QT Int : 436 ms P-R-T Axes : 000 -41 087 degrees QTc Int : 431 ms POOR DATA QUALITY, INTERPRETATION MAY BE ADVERSELY AFFECTED SINUS BRADYCARDIA WITH 1ST DEGREE A-V BLOCK LEFT AXIS DEVIATION ABNORMAL ECG WHEN COMPARED WITH ECG OF 13-OCT-2019 00:26, COMPARED TO EKG NO SIGNIFICANT CHANGE IS FOUND Confirmed by HANDY ROSALES MD ([id number]) on 10/20/2019 3:03:36 PM Referred By: Confirmed By:HANDY ROSALES MD
[2019-10-23] MEDS ORDERED: ERGOCALCIFEROL (VIT D2) 50,000 UNIT (1.25 MG) CAPSULE PO SCH (10:00)
== END 2019-10-19 21:45 | disposition short-term general hospital (02) | DRG 291 ==
LOC: JER 22:56 → JERBED 10-13 03:01 → J6WEST-2 10-13 05:46 → J4W 10-19 15:35
PROVIDERS: ADMIT Internal Medicine; ATTEND Internal Medicine
DX: I13.0 Hypertensive heart and chronic kidney disease with heart failure and stage 1 through stage 4 chronic kidney disease, or unspecified chronic kidney disease (principal); I50.33 Acute on chronic diastolic (congestive) heart failure; J18.9 Pneumonia, unspecified organism; I63.9 Cerebral infarction, unspecified; N18.4 Chronic kidney disease, stage 4 (severe); D62 Acute posthemorrhagic anemia; J96.11 Chronic respiratory failure with hypoxia; N17.9 Acute kidney failure, unspecified; R04.2 Hemoptysis; D68.32 Hemorrhagic disorder due to extrinsic circulating anticoagulants; J44.9 Chronic obstructive pulmonary disease, unspecified; I48.0 Paroxysmal atrial fibrillation; I25.10 Atherosclerotic heart disease of native coronary artery without angina pectoris; G20 Parkinson's disease; D64.9 Anemia, unspecified; E78.00 Pure hypercholesterolemia, unspecified; K59.09 Other constipation; K63.5 Polyp of colon; R41.82 Altered mental status, unspecified; I08.1 Rheumatic disorders of both mitral and tricuspid valves; E11.51 Type 2 diabetes mellitus with diabetic peripheral angiopathy without gangrene; E11.22 Type 2 diabetes mellitus with diabetic chronic kidney disease; R33.9 Retention of urine, unspecified; T45.515A Adverse effect of anticoagulants, initial encounter; I27.20 Pulmonary hypertension, unspecified; D69.6 Thrombocytopenia, unspecified; I65.29 Occlusion and stenosis of unspecified carotid artery; Z99.81 Dependence on supplemental oxygen; Z95.1 Presence of aortocoronary bypass graft; Z85.46 Personal history of malignant neoplasm of prostate
CPT/HCPCS: 36415; 36430; 36600; 70450-TC; 71045-TC-FY; 71250-TC; 76775-TC; 76856-TC; 80048; 80053; 81003; 82272; 82378; 82550; 82728; 82803; 82962; 83010; 83540; 83550; 83605; 83615; 83735; 83880; 84100; 84484; 85025; 85027; 85044; 85610; 86140; 86850; 86900; 86901; 86922; 87040; 87086; 93005; 93010; 94640; 94761; 97116-GP; 97162-GP; 99285-25; P9058; U0003

== ENCOUNTER 2019-11-04 08:56 | Inpatient (IN) | payer OTHER, MEDICARE ==
--- NOTE | 2019-11-04 09:05 | PDOC ---
History of Present Illness - General Chief Complaint: Shortness of Breath Stated Complaint: SOB Time Seen by Provider: 11/04/19 09:04 History Source: EMS, [facility] Records, Old Records Exam Limitations: Clinical Condition - History of Present Illness Initial Comments: 11/04/19 09:04 Erin Gruber is an 84M with PMH COPD, CHF, HTN, HLD, AFIB on Eliquis, Parkinson's Disease, GERD, sent from [facility] for SOB and hypoxia. Patient is somnolent and unable to give PMH. Per EMS, patient found to be very SOB today and satting in the 60s on RA with AMS, EMS called for further evaluation and brought to ED. Per EMS, lungs wheezy, given 1 amp Duonebs and placed on CPAP. NKDA. No other PMH or PSH at this time, will follow-up with [facility]. Past History - Medical History Allergies/Adverse Reactions: Allergies Allergy/AdvReac Type Severity Reaction Status Date / Time No Known Allergies Allergy Verified 11/04/19 09:31 Home Medications: Ambulatory Orders Amlodipine Besylate [Norvasc -] 10 mg PO DAILY 11/04/19 Apixaban [Eliquis] 2.5 mg PO DAILY 11/04/19 Budesonide/Formoterol Fumarate [Budesonide-Formoterol 160-4.5] 10.2 gm IH ASDIR 11/04/19 Carbidopa/Levodopa *Cr* 50/200 [Sinemet *Cr* 50/200 -] 1 combo PO BID 11/04/19 Carvedilol [Coreg -] 25 mg PO ONCE 11/04/19 Empagliflozin [Jardiance] 25 mg PO DAILY 11/04/19 Pantoprazole Sodium [Protonix] 40 mg PO DAILY 11/04/19 Ranolazine [Ranexa] 500 mg PO BID 11/04/19 Tamsulosin HCl 0.4 mg PO DAILY 11/04/19 Anemia: Yes Asthma: Yes Cancer: Yes (Prostate, RADIATION 1987) Cardiac Disorders: Yes (AFIB,Cad, CABG, VT) CVA: Yes (OCCLUSION AND STENOSIS OF CARITID ARTERY) COPD: Yes CHF: Yes Dementia: No Diabetes: Yes GI Disorders: Yes (GASTRIC AND COLON POLYPS,CHRONIC CONSTIPATION) Disorders: No HTN: Yes Hypercholesterolemia: Yes Liver Disease: No Seizures: No Thyroid Disease: No - Surgical History Abdominal Surgery: No Appendectomy: No Cardiac Surgery: Yes (CABG x 3, carotid endartorectomy) Cholecystectomy: No Lung Surgery: Yes (R CHEST TUBE) Neurologic Surgery: No Orthopedic Surgery: No - Immunization History Immunization Up to Date: Yes - Psycho-Social/Smoking History Smoking Status: Yes Smoking History: Former smoker Have you smoked in the past 12 months: No Number of Cigarettes Smoked Daily: 0 If you are a former smoker, when did you quit?: 1987 Cigars Per Day: 0 Review of Systems - Review of Systems Able to Perform ROS?: No (AMS) *Physical Exam - Physical Exam General Appearance: Yes: Nourished, Appropriately Dressed, Other (somnolent, non-verbal). No: Apparent Distress HEENT: positive: EOMI, MARCIA, Symmetrical, Pharynx Normal. negative: Scleral Icterus (R), Scleral Icterus (L), Pharyngeal Erythema, Tonsillar Exudate, Tonsillar Erythema, Nasal Congestion, Rhinorrhea Neck: positive: Trachea midline, Normal Thyroid, Supple. negative: Tender, Rigid, Lymphadenopathy (R), Lymphadenopathy (L), Tender lateral, Tender midline Respiratory/Chest: positive: Crackles (bilateral all pozo), Other (CPAP mask in place). negative: Chest Tender, Lungs Clear, Normal Breath Sounds, Respiratory Distress, Accessory Muscle Use, Labored Respiration, Rales, Rhonchi, Stridor, Wheezing Cardiovascular: positive: Regular Rhythm, Regular Rate. negative: Murmur Gastrointestinal/Abdominal: positive: Normal Bowel Sounds, Flat, Soft. negative: Tender, Organomegaly, Pulsatile Mass, Guarding, Rebound Musculoskeletal: positive: Normal Inspection. negative: CVA Tenderness, CVA Tenderness (R), CVA Tenderness (L), Vertebral Tenderness Extremity: positive: Normal Capillary Refill, Normal Inspection, Normal Range of Motion, Pelvis Stable. negative: Tender, Pedal Edema, Swelling, Calf Tenderness Integumentary: positive: Normal Color, Dry, Warm Neurologic: positive: Other (somnolent, responsive to painful stimuli). negative: Fully Oriented, Alert, Normal Mood/Affect, Normal Response ED Treatment Course - LABORATORY CBC & Chemistry Diagram: 11/04/19 09:49 11/04/19 09:49 Medical Decision Making - Medical Decision Making 11/04/19 10:15 Patient has history of COPD and CHF as well as AFIB on Eliquis, now here in respiratory distress, satting on 80% on CPAP. Given fluid auscultation in lungs, concerned for PNA vs. CHF exacerbation vs. COPD. Bipap ordered with f/u ABG. Getting CMP/CBC/CP/BNP/ECG/CXR, also sepsis lactic acid and blood cultures for possible PNA given low oral temp. Labs notable for: - WBC 17.1 - K 5.6 - BNP 90757 - ABG CO2 49, O2 65 CXR shows congestive changes, large heart, possible infiltrate. ECG shows 1st degree AV block, LAD, HR 65, QTc 480 Labs and exam concerning for HCAP, covering with Zosyn and vancomycin. K elevated, no ECG changes, given calcium, D50+insulin] BNP elevated, given 20mg IV Lasix. Microblog sent for admission to telemetry. 11/04/19 12:46 Discussed case with ada Ceja for admission to Tele. Discharge - Discharge Information Problems reviewed: Yes Clinical Impression/Diagnosis: Acute on chronic diastolic (congestive) heart failure, Hyperkalemia Pneumonia Qualifiers: Pneumonia type: due to unspecified organism Laterality: right Lung location: unspecified part of lung Qualified Code(s): J18.9 - Pneumonia, unspecified organism Respiratory failure Qualifiers: Chronicity: acute Respiratory failure complication: hypoxia Qualified Code(s): J96.01 - Acute respiratory failure with hypoxia Condition: Improved - Admission Yes - Follow up/Referral Referrals: Vince Colbert MD [Primary Care Provider] - - Patient Discharge Instructions - Post Discharge Activity
[2019-11-04 10:30] LABS: BASO % 0.3 % (0-2.0); EOS % 0.1 % (0-4.5); HEMATOCRIT 28.6 % (35.4-49); LYMPH % 2.4 % (8-40); MCH 29.3 pg (25.7-33.7); MCHC 31.4 g/dl (32.0-35.9); MEAN CELL VOLUME 93.4 fl (80-96); MEAN PLT VOLUME 8.4 fl (7.5-11.1); MONO % 9.4 % (3.8-10.2); NEUT % 87.8 % (42.8-82.8); PLATELET COUNT 227 K/MM3 (134-434); RBC 3.06 M/mm3 (4.00-5.60); RDW 19.1 % (11.9-15.9); WHITE BLOOD COUNT 17.1 K/mm3 (4.0-10.0)
[2019-11-04 10:32] LABS: ARTERIAL BLD GAS O2 SATURATION 92.9 mmHg (95-98); ARTERIAL BLOOD GAS BASE EXCESS 5.4 mmol/L (-2-2); ARTERIAL BLOOD GAS PO2 65.4 mmHg (80-100); ARTERIAL BLOOD GAS pH 7.414 (7.350-7.450)
[2019-11-04 10:34] LABS: ALLENS TEST POSITIVE
[2019-11-04 10:35] LABS: VENT MODE S/T; VENT RATE 10
[2019-11-04 10:37] LABS: INR 1.55 (0.83-1.09); PROTHROMBIN TIME (PATIENT) 18.4 SEC (9.7-13.0)
[2019-11-04 10:40] LABS: ACTIVATED PTT 38.8 SECONDS (25.2-36.5)
[2019-11-04 11:05] LABS: BILIRUBIN,TOTAL 0.8 mg/dL (0.2-1); BLOOD UREA NITROGEN 45.4 mg/dL (7-18); CALCIUM 7.6 mg/dL (8.5-10.1); CREATININE 2.9 mg/dL (0.55-1.3); MAGNESIUM 3.4 mg/dL (1.8-2.4); N-TERMINAL BNP 13375.3 pg/ml (5-450); POTASSIUM 5.6 mmol/L (3.5-5.1)
[2019-11-04] MEDS ORDERED: FUROSEMIDE 40 MG/4 ML INJECTABLE VIAL IVPUSH ONE (11:17)
--- NOTE | 2019-11-04 11:20 | PDOC ---
Documentation entered by Estefania Swan SCRIBE, acting as scribe for Francisco Voss MD. Francisco Voss MD: This documentation has been prepared by the Sosa lomeli Xhesika, SCRIBE, under my direction and personally reviewed by me in its entirety. I confirm that the documentation accurately reflects all work, treatment, procedures, and medical decision making performed by me. Attending Attestation - Resident Resident Name: Michael Sousa - ED Attending Attestation I have performed the following: I have examined & evaluated the patient, The case was reviewed & discussed with the resident, I agree w/resident's findings & plan, Exceptions are as noted - HPI HPI: 11/04/19 09:08 The patient is an 84 year old male with a past medical history significant for HTN, HLD, CHF, DM, COPD, CAD s/p CABG (2008), Prostate CA, and recurrent pneumonia (on home 2L home O2) who presents to the emergency department [facility] from [facility] for shortness of breath and hypoxia. Per EMS, the patient's stats were in the 60's. Per [place] pt was altered and unresponsive. En route to the ED, Pt received duonebs and was on cPAP. Allergies: NKDA - Physicial Exam PE: 11/04/19 11:20 Vitals: Triage Vital signs reviewed General Appearance: No acute distress, well nourished well developed, Head: Atraumatic, Cardiac: Regular rate and rhythym unfortunately no and they send that to him they can do with her medical records for Lungs: Clear to auscultation bilateral, good air movement bilaterally, Abdomen: Soft, non distended, normal bowel sounds, non tender to palpation Extremities: Full range of motion to all extremities, no cyanosis, clubbing, or edema Skin: Warm and dry, no rashes or lesions, no rash, no petechiae Psych: Normal mood, normal affect - Critical Care Time Total Critical Care Time: 35 Critical Care Statement: The care of this patient involved high complexity decision making to prevent further life threatening deterioration of the patient's condition and/or to evaluate & treat vital organ system(s) failure or risk of failure. - Medical Decision Making 11/06/19 18:21 The patient is an 84 year old male with a past medical history significant for HTN, HLD, CHF, DM, COPD, CAD s/p CABG (2008), Prostate CA, and recurrent pneumonia (on home 2L home O2) who presents to the emergency department BIB from [facility] for shortness of breath and hypoxia. Per EMS, the patient's stats were in the 60's. Per [place] pt was altered and unresponsive. En route to the ED, Pt received duonebs and was on cPAP. 84 years old presents to the emergency department with respiratory failure secondary to hypoxia patient placed on BiPAP with improvement in oxygen saturation Clinical examination and radiologic imaging consistent with CHF exacerbation possibly triggered by underlying pneumonia. Chest x-ray interpreted by me. Patient diuresed with IV Lasix Patient covered with antibiotics for possible underlying pneumonia Patient will require admission to hospital Reevaluation after Lasix and BiPAP oxygenation improving from the 80s to the low 90s Patient stable for admission to telemetry medical admission for further management. 11/06/19 18:22 Heart Score/ECG Review - ECG Impressions Comment:: 11/06/19 18:23 EKG performed at 929 demonstrates normal sinus rhythm left axis deviation no ST elevations no T wave inversions Interpreted by me. Discharge - Discharge Information Problems reviewed: Yes Clinical Impression/Diagnosis: Acute on chronic diastolic (congestive) heart failure, Hyperkalemia Pneumonia Qualifiers: Pneumonia type: due to unspecified organism Laterality: right Lung location: unspecified part of lung Qualified Code(s): J18.9 - Pneumonia, unspecified organism Respiratory failure Qualifiers: Chronicity: acute Respiratory failure complication: hypoxia Qualified Code(s): J96.01 - Acute respiratory failure with hypoxia Condition: Good - Follow up/Referral - Patient Discharge Instructions - Post Discharge Activity
[2019-11-04] MEDS ORDERED: FUROSEMIDE 40 MG/4 ML INJECTABLE VIAL ONE (11:21)
[2019-11-04] MEDS ORDERED: CALCIUM GLUCONATE 10% - 1,000 MG/10 ML VIAL IVPUSH ONE (12:11)
[2019-11-04] MEDS ORDERED: INSULIN REGULAR HUMAN 100 UNITS/ML *VIAL IVPUSH ONE (12:26)
[2019-11-04] MEDS ORDERED: DEXTROSE 50%-WATER - 25 GM/50 ML VIAL IVPUSH ONE ×3 (12:26→22:38)
[2019-11-04] MEDS ORDERED: PIPERACILLIN/TAZOB 4.5 GM 4.5 GM in DEXTROSE 5%-WATER 100 ML IVPB ONE (12:26)
[2019-11-04] MEDS ORDERED: VANCOMYCIN 1 GM in D5W (PRE-DOCKED) 1,000 MG/250 ML IVPB ONE (12:26)
[2019-11-04] MEDS ORDERED: CALCIUM GLUCONATE 10% - 1,000 MG/10 ML VIAL ONE (12:30)
--- NOTE | 2019-11-04 13:49 | HP ---
Afternoon POC 49; gave D50 amp and recheck in 1hr. Likely residual from previous insulin dosing and possibly Jardiance with ANÍBAL contributing. CHIEF COMPLAINT: Altered mental status/Hypoxia PCP: Dr. Colbert HISTORY OF PRESENT ILLNESS: HPI gathered through , EMr, and signout due to patients mentation at the time 84M with PMH COPD 2L home, CHF, HTN, HLD, CKD, CAD with 2 vessel disease and intervention, Prostate Ca on radiation AFIB off AC due to high risk of bleed , Parkinson's Disease, GERD, Gastric adenoma, ILD sent from [facility] for SOB and hypoxia. Patient was recently at this instituition on October 18 where he was seen for hemoptysis and suspected gastric polyp which developed into malignancy. At the time, his AC was held and he was transferred to [facility] for Endoscopic EUS and further evaluation. Patient was discharged from there and sent to [facility] for physical rehabilitation. Today, patient was noted to be poorly responsive and he was found to be hypoxic to 60%. EMS was called and placed on CPAP with albuterol nebulizers and was brought to the ER. In the ER patient's saturation increased to 85% and was placed on bilevel NIPPV. During his evaluation patient remained somnolent, however is more arousable than first presentation. Patient tachypneic on NIPPV tolerating well, will open eyes and verbalized to painful stimuli, however will quickly fall back to sleep. at bedside notes that he has not experienced any viral illnesses in the last week. Recently he was taken off his Lasix 40mg daily for unknown reason and he has not been taking PAST MEDICAL HISTORY: As above PAST SURGICAL HISTORY: Unable to obtain Social History: Unable to obtain FamHx: Unable to obtain Allergies No Known Allergies Allergy (Verified 11/04/19 09:31) HOME MEDICATIONS: Home Medications Medication Instructions Recorded Amlodipine Besylate [Norvasc -] 10 mg PO DAILY 11/04/19 Apixaban [Eliquis] 2.5 mg PO DAILY 11/04/19 Budesonide/Formoterol Fumarate 10.2 gm IH ASDIR 11/04/19 [Budesonide-Formoterol 160-4.5] Carbidopa/Levodopa *Cr* 50/200 1 combo PO BID 11/04/19 [Sinemet *Cr* 50/200 -] Carvedilol [Coreg -] 25 mg PO ONCE 11/04/19 Empagliflozin [Jardiance] 25 mg PO DAILY 11/04/19 Pantoprazole Sodium [Protonix] 40 mg PO DAILY 11/04/19 Ranolazine [Ranexa] 500 mg PO BID 11/04/19 Tamsulosin HCl 0.4 mg PO DAILY 11/04/19 REVIEW OF SYSTEMS Unable to obtain due to obtundation PHYSICAL EXAMINATION Vital Signs - 24 hr 11/04/19 11/04/19 11/04/19 09:00 09:15 10:08 Temperature 96.1 F L Pulse Rate 67 Respiratory 28 H Rate Blood Pressure 131/52 L O2 Sat by Pulse 75 L 96 90 L Oximetry (%) GENERAL: NAD, somnolent, arouses and verbalizes with painful stimuli improved from first presentation in ER HEENT: Nc/AT, NIPPV with minimal leak, sclera anicteric, SHREYA NECK: No JVD LUNGS: B/l rales noted in lower lung pozo, no wheezes, No accessory muscle use. NIPPV 18/5/35%/RR 10 HEART: RRR, normal S1 and S2 without murmur ABDOMEN: Soft, NT/ND, hypoactive bowel sounds, no guarding, no rebound EXTREMITIES: 2+ pulses throughout extremities. NEUROLOGICAL: Unable to obtain due to PSYCHIATRIC: Cooperative. Good eye contact. Appropriate mood and affect. SKIN: Warm, dry, normal turgor, no rashes or lesions noted, normal capillary refill. Laboratory Results - last 24 hr 11/04/19 11/04/19 11/04/19 09:49 09:49 09:49 WBC 17.1 H RBC 3.06 L Hgb 9.0 L Hct 28.6 L MCV 93.4 MCH 29.3 MCHC 31.4 L RDW 19.1 H Plt Count 227 D MPV 8.4 Absolute Neuts (auto) 15.0 H Neutrophils % 87.8 H Lymphocytes % 2.4 L D Monocytes % 9.4 Eosinophils % 0.1 D Basophils % 0.3 Nucleated RBC % 0 PT with INR 18.40 H INR 1.55 H PTT (Actin FS) 38.8 H Anticoagulation Therapy Puncture Site Patient Temperature ABG pH ABG pCO2 ABG pO2 ABG HCO3 ABG O2 Sat (Measured) ABG O2 Content ABG Base Excess Gutierrez Test Patient On Oxygen O2 Delivery Device Oxygen Flow Rate Vent Mode Vent Rate Mechanical Rate PEEP Pressure Support Vent Sodium 138 Potassium 5.6 H Chloride 101 Carbon Dioxide 30 Anion Gap 7 L BUN 45.4 H Creatinine 2.9 H Est GFR (CKD-EPI)AfAm 22.17 Est GFR (CKD-EPI)NonAf 19.13 Random Glucose 101 Lactic Acid Calcium 7.6 L Magnesium 3.4 H Total Bilirubin 0.8 AST 18 ALT 6 L Alkaline Phosphatase 66 Creatine Kinase 51 Troponin I 0.05 B-Natriuretic Peptide 28818.3 H Total Protein 6.0 L Albumin 3.0 L 11/04/19 11/04/19 09:49 09:58 WBC RBC Hgb Hct MCV MCH MCHC RDW Plt Count MPV Absolute Neuts (auto) Neutrophils % Lymphocytes % Monocytes % Eosinophils % Basophils % Nucleated RBC % PT with INR INR PTT (Actin FS) Anticoagulation Therapy No Result Required. Puncture Site Right radial Patient Temperature No Result Required. ABG pH 7.414 ABG pCO2 49.10 H ABG pO2 65.4 L ABG HCO3 30.7 H ABG O2 Sat (Measured) 92.9 L ABG O2 Content No Result Required. ABG Base Excess 5.4 H Gutierrez Test Positive Patient On Oxygen Yes O2 Delivery Device Bipap Oxygen Flow Rate 35% Vent Mode S/t Vent Rate 10 Mechanical Rate Bipap PEEP No Result Required. Pressure Support Vent 18/5 Sodium Potassium Chloride Carbon Dioxide Anion Gap BUN Creatinine Est GFR (CKD-EPI)AfAm Est GFR (CKD-EPI)NonAf Random Glucose Lactic Acid 0.9 Calcium Magnesium Total Bilirubin AST ALT Alkaline Phosphatase Creatine Kinase Troponin I B-Natriuretic Peptide Total Protein Albumin ASSESSMENT/PLAN: Acute hypoxic respiratory failure Questionable resolving infiltrative process vs. aspiration pneumonitis Acute on chronic kidney injury Leukocytosis Atrial fibrillation off of AC History hypertension History T2DM History of dysplastic gastric polyp History of Parkinson's disease --Admit given significant hypoxia and higher level of monitoring needed --Continue NIPPV (changed to 17/09/RR 12/35%) --Given significant hypoxia requiring NIPPV consulted pulmonology --Will continue coverage with Zosyn 3.375 q8h given questionable infiltrate on CXR read --If no fever or elevation of white count tomorrow may be able to downgrade --Follow-up blood and urine cultures --If no significant change in status, consider CT chest for further investigation --Follow COVID PCR swab --Lasix 40mg IVP daily with measurement of urine output for effective diuresis --ANÍBAL likely 2/2 to vascular congestion --Monitor Cr and avoid nephrotoxic agents if possible --Nephrology consulted --Coreg 25mg BID PO to continue --Will not start AC despite CHADsVASc elevation due to recent hospitalization for hemoptysis, high fall risk, and risks outweighing benefits at this time --Monitor HR on telemetry --Norvasc 10mg daily to continue --Continue Carbo/Levo home dose --BGM monitoring and ISS for glucose control DVT PPX: SCDs given significant risks of bleed as above Ab Armenta, DO - IM Visit type - Medication Review Med list reviewed for High Risk Meds patients 65 and older: Yes (Confirmed) - Emergency Visit Emergency Visit: Yes ED Registration Date: 11/04/19 Care time: The patient presented to the Emergency Department on the above date and was hospitalized for further evaluation of their emergent condition. - New Patient This patient is new to me today: Yes Date on this admission: 11/04/19 - Critical Care Critical Care patient: No
[2019-11-04] MEDS ORDERED: DEXTROSE 50%-WATER 25 GM/50 ML DISP.SYRIN ONE ×3 (14:32→22:39)
[2019-11-04] MEDS ORDERED: VANCOMYCIN 1 GRAM (PRE-DOCKED) 1,000 MG/250 ML BAG IVPB ONE (14:32)
[2019-11-04] MEDS ORDERED: PIPERACILLIN/TAZOB 4.5 GM 4.5 GM/100 ML BAG IVPB ONE (14:32)
[2019-11-04] MEDS: INSULIN SLIDING SCALE (NOVOLOG) 1 VIAL SQ SCH ×2 (17:11→22:25)
[2019-11-04] MEDS: PIPERACILLIN/TAZOB 2.25 GM 2.25 GM in DEXTROSE 5%-WATER - 50 ML IVPB SCH (17:39)
[2019-11-04 21:57] LABS: EPI CELLS 10 /uL (0-25.1); HYALINE CASTS 1 /uL (0-3.1); PH,URINE 5.5 (5.0-8.0); URINE APPEARANCE CLEAR; URINE BACTERIA 2 /uL (0-1359); URINE BILIRUBIN NEGATIVE (NEGATIVE); URINE COLOR YELLOW; URINE GLUCOSE (UA) 2+ (NEGATIVE); URINE KETONE NEGATIVE (NEGATIVE); URINE LEUK ESTERASE NEGATIVE (NEGATIVE); URINE NITRITE NEGATIVE (NEGATIVE); URINE PROTEIN NEGATIVE (NEGATIVE); URINE RBC 22 /uL (0-23.9); URINE UROBILINOGEN 0.2 mg/dL (0.2-1.0); URINE WBC 21 /uL (0-25.8)
[2019-11-04] MEDS ORDERED: PT OWN MED DRAWER 7, Y5N ONE (22:04)
[2019-11-04] MEDS: ACETAMINOPHEN 325 MG TABLET (FP) PO PRN (22:24)
[2019-11-04] MEDS: RANOLAZINE E.R. 500 MG TABLET (FP) PO SCH (22:24)
[2019-11-04] MEDS: CARVEDILOL 25 MG TABLET (FP) PO SCH (22:24)
[2019-11-05] MEDS ORDERED: PIPERACILLIN/TAZOBACTAM 2.25 GM VIAL IVPB ONE ×3 (01:32→16:56)
[2019-11-05] MEDS ORDERED: DEXTROSE 5%-WATER - 50 ML IVPB ONE ×3 (01:33→16:56)
[2019-11-05] MEDS: PIPERACILLIN/TAZOB 2.25 GM 2.25 GM in DEXTROSE 5%-WATER - 50 ML IVPB SCH ×3 (01:40→17:17)
[2019-11-05] MEDS ORDERED: DEXTROSE 50%-WATER 25 GM/50 ML DISP.SYRIN ONE (05:49)
[2019-11-05] MEDS ORDERED: DEXTROSE 50%-WATER - 25 GM/50 ML VIAL IVPUSH ONE (06:20)
[2019-11-05] MEDS: INSULIN SLIDING SCALE (NOVOLOG) 1 VIAL SQ SCH ×4 (06:31→21:36)
[2019-11-05 06:50] LABS: BASO % 0.3 % (0-2.0); EOS % 0.1 % (0-4.5); HEMATOCRIT 27.6 % (35.4-49); HEMOGLOBIN 8.8 GM/dL (11.7-16.9); LYMPH % 3.1 % (8-40); MCH 29.6 pg (25.7-33.7); MEAN CELL VOLUME 92.6 fl (80-96); MEAN PLT VOLUME 8.6 fl (7.5-11.1); MONO % 11.7 % (3.8-10.2); NEUT % 84.8 % (42.8-82.8); PLATELET COUNT 215 K/MM3 (134-434); RBC 2.98 M/mm3 (4.00-5.60); RDW 18.9 % (11.9-15.9); WHITE BLOOD COUNT 13.9 K/mm3 (4.0-10.0)
[2019-11-05 07:10] LABS: ALBUMIN 2.8 g/dl (3.4-5.0); ANION GAP 5 MMOL/L (8-16); BLOOD UREA NITROGEN 44.2 mg/dL (7-18); CALCIUM 7.8 mg/dL (8.5-10.1); CHLORIDE 100 mmol/L (98-107); CO2 34 mmol/L (21-32); GLUCOSE,RANDOM 72 mg/dL (74-106); MAGNESIUM 3.2 mg/dL (1.8-2.4); POTASSIUM 4.3 mmol/L (3.5-5.1); SODIUM 139 mmol/L (136-145)
[2019-11-05 07:13] LABS: ALK PHOS 62 U/L (45-117); BILIRUBIN,TOTAL 0.8 mg/dL (0.2-1); CREATININE 2.7 mg/dL (0.55-1.3); PHOSPHOROUS 4.4 mg/dL (2.5-4.9); SGOT/AST 15 U/L (15-37); TOT PROT 5.7 g/dl (6.4-8.2)
[2019-11-05 07:15] LABS: SGPT/ALT < 6 U/L (13-61)
--- NOTE | 2019-11-05 07:47 | PN ---
Teaching Attending Note Name of Resident: Baljit Strong ATTENDING PHYSICIAN STATEMENT I saw and evaluated the patient. I reviewed the resident's note and discussed the case with the resident. I agree with the resident's findings and plan as documented. SUBJECTIVE: This patient is an 84yom with PMhx of COPD (2L home 02), CHF, HTN, HLD, CKD, CAD with 2 vessel disease ,, Prostate Ca on radiation, AFIB off AC due to high risk of bleed , Parkinson's Disease, GERD, Gastric adenoma, ILD sent from [facility] for SOB and hypoxia. Patient is comfortable, feeling better , no acute events overnight. OBJECTIVE: Vital Signs Temperature 98.9 F 11/05/19 06:00 Pulse Rate 61 11/05/19 06:00 Respiratory Rate 20 11/05/19 06:00 Blood Pressure 122/73 11/05/19 06:00 O2 Sat by Pulse Oximetry (%) 98 11/05/19 06:00 PE: per resident's note decreased BS's BL RRR CBCD WBC 13.9 K/mm3 (4.0-10.0) H 11/05/19 06:05 RBC 2.98 M/mm3 (4.00-5.60) L 11/05/19 06:05 Hgb 8.8 GM/dL (11.7-16.9) L 11/05/19 06:05 Hct 27.6 % (35.4-49) L 11/05/19 06:05 MCV 92.6 fl (80-96) 11/05/19 06:05 MCHC 32.0 g/dl (32.0-35.9) 11/05/19 06:05 RDW 18.9 % (11.9-15.9) H 11/05/19 06:05 Plt Count 215 K/MM3 (134-434) 11/05/19 06:05 MPV 8.6 fl (7.5-11.1) 11/05/19 06:05 CMP Sodium 139 mmol/L (136-145) 11/05/19 06:05 Potassium 4.3 mmol/L (3.5-5.1) 11/05/19 06:05 Chloride 100 mmol/L (98-107) 11/05/19 06:05 Carbon Dioxide 34 mmol/L (21-32) H 11/05/19 06:05 Anion Gap 5 MMOL/L (8-16) L 11/05/19 06:05 BUN 44.2 mg/dL (7-18) H 11/05/19 06:05 Creatinine 2.7 mg/dL (0.55-1.3) H 11/05/19 06:05 Random Glucose 72 mg/dL (74-106) L 11/05/19 06:05 Calcium 7.8 mg/dL (8.5-10.1) L 11/05/19 06:05 Total Bilirubin 0.8 mg/dL (0.2-1) 11/05/19 06:05 AST 15 U/L (15-37) 11/05/19 06:05 ALT < 6 U/L (13-61) L 11/05/19 06:05 Alkaline Phosphatase 62 U/L (45-117) 11/05/19 06:05 Total Protein 5.7 g/dl (6.4-8.2) L 11/05/19 06:05 Albumin 2.8 g/dl (3.4-5.0) L 11/05/19 06:05 CARDIAC ENZYMES Creatine Kinase 51 U/L (26-308) 11/04/19 09:49 Troponin I 0.05 ng/ml (0.00-0.05) 11/04/19 09:49 Current Medications Generic Name Dose Route Start Last Admin Trade Name Freq PRN Reason Stop Dose Admin Acetaminophen 650 mg 11/04/19 21:46 11/04/19 22:24 Tylenol - PO 650 mg Q6H PRN Administration Fever Or Pain Amlodipine Besylate 10 mg 11/05/19 10:00 Norvasc - PO DAILY RANJAN Carbidopa/Levodopa 1 combo 11/04/19 22:00 11/04/19 22:24 Sinemet *Cr* 50/200 - PO 1 combo BID RANJAN Administration Carvedilol 25 mg 11/04/19 22:00 11/04/19 22:24 Coreg - PO 25 mg BID RANJAN Administration Furosemide 40 mg 11/05/19 10:00 Lasix Injection - IVPUSH DAILY RANJAN Piperacillin Sod/Tazobactam 50 mls @ 100 mls/hr 11/04/19 18:00 11/05/19 01:40 Sod 2.25 gm/ Dextrose IVPB 100 mls/hr Q8H-IV RANJAN Administration Protocol Insulin Aspart 1 vial 11/04/19 16:30 11/05/19 06:31 Novolog Vial Sliding Scale - SQ Not Given ACHS [facility] Protocol Pantoprazole Sodium 40 mg 11/05/19 10:00 Protonix - PO DAILY [facility] Ranolazine 500 mg 11/04/19 22:00 11/04/19 22:24 Ranexa - PO 500 mg BID RANJAN Administration Tamsulosin HCl 0.4 mg 11/05/19 08:30 Flomax - PO DAILY@0830 [facility] Home Medications Medication Instructions Recorded Amlodipine Besylate [Norvasc -] 10 mg PO DAILY 11/04/19 Apixaban [Eliquis] 2.5 mg PO DAILY 11/04/19 Budesonide/Formoterol Fumarate 10.2 gm IH ASDIR 11/04/19 [Budesonide-Formoterol 160-4.5] Carbidopa/Levodopa *Cr* 50/200 1 combo PO BID 11/04/19 [Sinemet *Cr* 50/200 -] Carvedilol [Coreg -] 25 mg PO BID 11/04/19 Empagliflozin [Jardiance] 25 mg PO DAILY 11/04/19 Pantoprazole Sodium [Protonix] 40 mg PO DAILY 11/04/19 Ranolazine [Ranexa] 500 mg PO BID 11/04/19 Tamsulosin HCl 0.4 mg PO DAILY 11/04/19 CXR: s/p sternotomy, large heart, congestive changes, possible infiltrate superimposed. blunting right angle. ASSESSMENT AND PLAN: This patient is an 84yom with Pmhx of HTN , HLD, CKD, CAD sp CABG x 2 vessels, carotid stenosis, CHF, Afib, Parkinson disease, prostate cancer on radiation therapy, COPD on 2 liters NC at home, possible ILD , recurrent pneumonias who presented with acute diastolic CHF exacerbation with acute hypoxic respiratory failure #Acute hypoxic respiratory failure: cannot r/o aspiration pneumonia, on Bipap continue prn #Possible infiltrate vs. aspiration pneumonia : ewing cx follow the result, continue Zosyn renally dosed #Acute on chronic diastolic CHF exacerbation: on IV lasix and coreg continue #Acute on chronic kidney injury: will renally dose zosyn, cr cl 20 #Atrial fibrillation off of AC : off AC due to hemoptysis , continue Coreg #Hx of Acute blood loss with hemoptysis which was aggrevated by Luigi. see previous notes. #Hx of chronic COPD on 2 liter oxygen continue #Hx of HTN : on Norvasc ,coreg continue #Hx of T2DM: SS with coverage , patient is Jardiance at home, on hold here since CrCl is less than 30 #Hx of prostate cancer with hx of urinary retention , on Flomax continue #Hx of dysplastic gastric polyp #Hx of Parkinson's disease : continue Sinemet COVID PCR swab DVT Px: SCDs, off Ac due to high risk for bleed .
[2019-11-05] MEDS ORDERED: TAMSULOSIN HCL 0.4 MG CAP PO SCH (08:30)
[2019-11-05] MEDS ORDERED: PT OWN MED DRAWER 7, Y5N ONE ×3 (09:08→21:14)
[2019-11-05] MEDS: FUROSEMIDE 40 MG/4 ML INJECTABLE VIAL IVPUSH SCH (09:12)
[2019-11-05] MEDS: RANOLAZINE E.R. 500 MG TABLET (FP) PO SCH ×2 (09:13→21:35)
[2019-11-05] MEDS: CARVEDILOL 25 MG TABLET (FP) PO SCH ×2 (09:13→21:35)
[2019-11-05] MEDS: amLODIPine BESYLATE 10 MG TABLET (FP) PO SCH (09:16)
[2019-11-05] MEDS: PANTOPRAZOLE 40 MG TABLET PO SCH (09:16)
[2019-11-05] MEDS ORDERED: CARVEDILOL 25 MG TABLET (FP) PO SCH (10:00)
--- NOTE | 2019-11-05 10:01 | EKG ---
Test Reason : Blood Pressure : / mmHG Vent. Rate : 065 BPM Atrial Rate : 065 BPM P-R Int : 224 ms QRS Dur : 092 ms QT Int : 462 ms P-R-T Axes : 092 -53 -26 degrees QTc Int : 480 ms POOR DATA QUALITY, INTERPRETATION MAY BE ADVERSELY AFFECTED SINUS RHYTHM WITH 1ST DEGREE A-V BLOCK LEFT AXIS DEVIATION /LAFB INFERIOR INFARCT , AGE UNDETERMINED ABNORMAL ECG WHEN COMPARED WITH ECG OF 19-OCT-2019 15:25, Difficult to compare Confirmed by Cal Hernandez ([id number]) on 11/05/2019 10:00:18 AM Referred By: Confirmed By:Cal Hernandez
--- NOTE | 2019-11-05 10:08 | PN ---
Progress Note (short form) - Note Progress Note: ID CONSULT DICTATED R/O HCAP ? CHF LEUKOCYTOSIS R/O SEPSIS SECONDARY TO LUNG SOURCE AZOTEMIA AWAIT C/S CONTINUE EMPIRIC ZOSYN
--- NOTE | 2019-11-05 12:33 | CONS ---
INFECTIOUS DISEASE CONSULTATION DATE OF CONSULTATION: DATE OF DICTATION: 11/05/2019 HISTORY: The patient is an 84-year-old male who is evaluated for possible pneumonia. He is a [facility] of a [facility]. He states he has been at the shelter for the past 4 days. He has had a previous hospital admission at [facility] in October of this year for congestive heart failure and pneumonia. He now presents with worsening shortness of breath at the shelter. He was noted to have labored breathing with an O2 saturation in the 60s on room air. Staff also noted him to be more lethargic and less interactive. He was transferred to the emergency room where he was evaluated. His O2 saturations were noted to be as low as 75. Chest x-ray showed bilateral pulmonary congestion. A superimposed infiltrate could not be excluded. He was also noted to have a markedly elevated white blood cell count. The patient was empirically treated with vancomycin and Zosyn for possible healthcare-acquired pneumonia. At the present time he is awake and alert. He is in no acute respiratory distress. He is able to speak in complete sentences on nasal cannula O2. He reports occasional cough productive of whitish sputum. He denies any hemoptysis. No complaint of chest pain. No known ill contacts. A COVID-19 PCR was performed and is pending. His previous PCR was negative in October. According to the notes, the patient had discontinued Lasix for reasons which are not clear. PAST MEDICAL HISTORY: Positive for recurrent pneumonia, congestive heart failure, oxygen dependent COPD, hypertension, hyperlipidemia, atrial fibrillation, parkinsonism, gastroesophageal reflux, coronary artery disease. PAST SURGICAL HISTORY: Status post coronary artery bypass, prostate cancer. ALLERGIES: No known allergies. MEDICATIONS: Include Zosyn, Flomax, amlodipine, Coreg, Ranexa, Synthroid, Protonix. SOCIAL HISTORY: Presently residing in a nursing facility for short-term rehabilitation. He had previously been living at home with his who he reports is well. He is a former smoker. Occasional EtOH. SYSTEMS REVIEW: Neurologic: Positive for parkinsonism. Cardiac: Negative chest pain or palpitations. Respiratory: As per HPI. Gastrointestinal: Positive for gastroesophageal reflux. Genitourinary: Negative for urinary tract infection. LABORATORY DATA: White count 17.1, hematocrit 27.6, platelet count 215. Creatinine 2.7. Urine analysis 21 white cells. Liver enzymes normal. PHYSICAL EXAMINATION: General: He is awake and alert in bed. He does not appear to be acutely short of breath on nasal cannula oxygen. Heart: Sounds irregular S1, S2. Lungs: Diminished breath sounds throughout. Abdomen: Soft. No tenderness elicited. No mass, rebound or rigidity. Extremities: Negative for edema. IMPRESSION: 1. Rule out healthcare-acquired pneumonia. 2. Congestive heart failure. 3. Leukocytosis, rule out sepsis secondary to lung source. 4. Azotemia. Will continue empiric Zosyn pending cultures. Obtain urine legionella and pneumococcal antigens, sputum culture. Await COVID-19 PCR. Airborne precautions. Will follow. Thank you for the kind referral. PIPPA KLEIN M.D. [id number]
--- NOTE | 2019-11-05 14:38 | CONSULT ---
Consult Consult Specialty:: Nephrology Reason for Consultation:: CKD - History of Present Illness Chief Complaint: shortness of breath History of Present Illness: Pt is an 84 year old male with pmhx of copd, chf, htn, hld, ckd, cad, prostate cancer, a-fib, parkinsons, gerd, and ILD who was sent in for hypoxia and shortness of breath. He was found to have elevated crown buffer and I was called to evaluate him. He denies shortness of breath at the moment. He is confused. He was poorly resposive and hypoxic on presentation. He did respond to cpap. His lasix was stopped about a week ago. - History Source History Provided By: Patient - Past Medical History Cardio/Vascular: Yes: AFIB (paroxysmal), CAD, CHF (diastolic), HTN, Mitral Insufficiency (and TR), Pulmonary Hypertension, Other (severe peripheral vascular disease) Pulmonary: Yes: Bronchitis, COPD, O2 Dependent, Pneumonia Gastrointestinal: Yes: Other (EGD 2015 gastric adenoma with low grade dysplasia, colon adenomas removed 2015- Dr Gardner) Renal/: Yes: Renal Inusuff Endocrine: Yes: Diabetes Mellitus - Past Surgical History Past Surgical History: Yes: CABG (2009 [facility]), Carotid Endarterectomy (left), Colonoscopy, Upper Endoscopy - Alcohol/Substance Use Hx Alcohol Use: Yes (rare) History of Substance Use: reports: None - Smoking History Smoking history: Former smoker Have you smoked in the past 12 months: No Aproximately how many cigarettes per day: 0 If you are a former smoker, when did you quit?: 1986 - Social History Usual Living Arrangement: With Spouse ADL: Family Assistance 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 History of Recent Travel: No Home Medications - Allergies Allergies/Adverse Reactions: Allergies Allergy/AdvReac Type Severity Reaction Status Date / Time No Known Allergies Allergy Verified 11/04/19 09:31 - Home Medications Home Medications: Ambulatory Orders Amlodipine Besylate [Norvasc -] 10 mg PO DAILY 11/04/19 Apixaban [Eliquis] 2.5 mg PO BID 11/04/19 Budesonide/Formoterol Fumarate [Budesonide-Formoterol 160-4.5] 10.2 gm IH ASDIR 11/04/19 Carbidopa/Levodopa *Cr* 50/200 [Sinemet *Cr* 50/200 -] 1 combo PO TID 11/04/19 Carvedilol [Coreg -] 25 mg PO BID 11/04/19 Empagliflozin [Jardiance] 25 mg PO DAILY 11/04/19 Pantoprazole Sodium [Protonix] 40 mg PO DAILY 11/04/19 Ranolazine [Ranexa] 500 mg PO BID 11/04/19 Doxazosin Mesylate 2 mg PO DAILY 11/05/19 Glimepiride [Amaryl -] 1 mg PO DAILY 11/05/19 Tiotropium [place] [Spiriva] 1 inh PO DAILY 11/05/19 hydrALAZINE HCL [Apresoline -] 25 mg PO BID 11/05/19 Family Medical History Family History: Denies Review of Systems - Review of Systems Constitutional: reports: No Symptoms Eyes: reports: No Symptoms HENT: reports: No Symptoms Neck: reports: No Symptoms Cardiovascular: reports: No Symptoms Respiratory: reports: No Symptoms Gastrointestinal: reports: No Symptoms Genitourinary: reports: No Symptoms Musculoskeletal: reports: No Symptoms Integumentary: reports: No Symptoms Neurological: reports: No Symptoms Endocrine: reports: No Symptoms Hematology/Lymphatic: reports: No Symptoms Psychiatric: reports: No Symptoms Physical Exam Vital Signs: Vital Signs Temperature 98.2 F 11/05/19 14:12 Pulse Rate 65 11/05/19 14:12 Respiratory Rate 20 11/05/19 14:12 Blood Pressure 126/49 L 11/05/19 14:12 O2 Sat by Pulse Oximetry (%) 99 11/05/19 11:55 Constitutional: Yes: Calm Eyes: Yes: Conjunctiva Clear HENT: Yes: Atraumatic Cardiovascular: Yes: S1, S2 Respiratory: Yes: On Nasal O2 Gastrointestinal: Yes: Normal Bowel Sounds, Soft Renal/: Yes: WNL Musculoskeletal: Yes: WNL Neurological: Yes: Confusion Labs: CBC, BMP 11/05/19 06:05 11/05/19 06:05 Imaging - Results Chest X-ray: Report Reviewed Problem List - Problems (1) Acute on chronic diastolic (congestive) heart failure Code(s): I50.33 - ACUTE ON CHRONIC DIASTOLIC (CONGESTIVE) HEART FAILURE (2) ILD (interstitial lung disease) Code(s): J84.9 - INTERSTITIAL PULMONARY DISEASE, UNSPECIFIED Assessment/Plan Current Medications Generic Name Dose Route Start Last Admin Trade Name Freq PRN Reason Stop Dose Admin Acetaminophen 650 mg 11/04/19 21:46 11/04/19 22:24 Tylenol - PO 650 mg Q6H PRN Administration Fever Or Pain Amlodipine Besylate 10 mg 11/05/19 10:00 11/05/19 09:16 Norvasc - PO 10 mg DAILY RANJAN Administration Budesonide/Formoterol Fumarate puff 11/05/19 14:45 Symbicort 160/4.5mcg - IH ASDIR RANJAN Carbidopa/Levodopa 1 combo 11/04/19 22:00 11/05/19 09:16 Sinemet *Cr* 50/200 - PO 1 combo BID RANJAN Administration Carvedilol 25 mg 11/04/19 22:00 11/05/19 09:13 Coreg - PO 25 mg BID RANJAN Administration Doxazosin Mesylate 2 mg 11/06/19 10:00 Cardura - PO DAILY RANJAN Furosemide 40 mg 11/05/19 10:00 11/05/19 09:12 Lasix Injection - IVPUSH 40 mg DAILY RANJAN Administration Piperacillin Sod/Tazobactam 50 mls @ 100 mls/hr 11/05/19 18:00 Sod 2.25 gm/ Dextrose IVPB Q8H-IV RANJAN Protocol Insulin Aspart 1 vial 11/04/19 16:30 11/05/19 10:47 Novolog Vial Sliding Scale - SQ 2 units ACHS RANJAN Administration Protocol Non-Formulary Medication 1 inh 11/05/19 14:45 Tiotropium [place] [Spiriva] PO DAILY RANJAN Pantoprazole Sodium 40 mg 11/05/19 10:00 11/05/19 09:16 Protonix - PO 40 mg DAILY RANJAN Administration Ranolazine 500 mg 11/04/19 22:00 11/05/19 09:13 Ranexa - PO 500 mg BID RANJAN Administration Impression 1. ckd 2. anemia 3. chf 4. hc hemoptysis 5. ILD 6. cad 7. htn 8. a-fib 9. cva Plan - cont lasix - monitor renal function - crown buffer stable - cont to monitor volume status - repeat labs in am - avoid nsiads
--- NOTE | 2019-11-05 15:02 | CON.PULM ---
Consult Consult Specialty:: PULM/CCM Referred by:: WHITNEY Reason for Consultation:: SOB - History of Present Illness Chief Complaint: SOB History of Present Illness: 84 M, O2 dependent COPD (2L NC), CHF, HTN, HLD, CKD, CAD with 2 vessel disease, Prostate CA on radiation, AFIB off AC due to high risk of bleed , Parkinson's Disease, GERD, Gastric adenoma, and (?) ILD. Admitted via the ER from [facility] for SOB and hypoxia. He was recently admitted on October 18 for hemoptysis and to R/O GI malignancy. He was transferred to [facility] for further workup. He was noted to poorly responsive and hypoxic to 60%. EMS was called and placed on PAP therapy and treated with albuterol nebulizers. He responded well to PAP therapy. Apparently he was taken off his Lasix as an outpatient - History Source History Provided By: Medical Record Limitations to Obtaining History: Clinical Condition - Past Medical History Cardio/Vascular: Yes: AFIB (paroxysmal), CAD, CHF (diastolic), HTN, Mitral Insufficiency (and TR), Pulmonary Hypertension, Other (severe peripheral vascular disease) Pulmonary: Yes: Bronchitis, COPD, O2 Dependent, Pneumonia Gastrointestinal: Yes: Other (EGD 2016 gastric adenoma with low grade dysplasia, colon adenomas removed 2016- Dr Gardner) Renal/: Yes: Renal Inusuff Endocrine: Yes: Diabetes Mellitus - Past Surgical History Past Surgical History: Yes: CABG (2008 [facility] [place] Carotid Endarterectomy (left), Colonoscopy, Upper Endoscopy - Alcohol/Substance Use Hx Alcohol Use: Yes (rare) History of Substance Use: reports: None - Smoking History Smoking history: Former smoker Have you smoked in the past 12 months: No Aproximately how many cigarettes per day: 0 If you are a former smoker, when did you quit?: 1986 - Social History Usual Living Arrangement: With Spouse ADL: Family Assistance 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 History of Recent Travel: No Home Medications - Allergies Allergies/Adverse Reactions: Allergies Allergy/AdvReac Type Severity Reaction Status Date / Time No Known Allergies Allergy Verified 11/04/19 09:31 - Home Medications Home Medications: Ambulatory Orders Amlodipine Besylate [Norvasc -] 10 mg PO DAILY 11/04/19 Apixaban [Eliquis] 2.5 mg PO BID 11/04/19 Budesonide/Formoterol Fumarate [Budesonide-Formoterol 160-4.5] 10.2 gm IH ASDIR 11/04/19 Carbidopa/Levodopa *Cr* 50/200 [Sinemet *Cr* 50/200 -] 1 combo PO TID 11/04/19 Carvedilol [Coreg -] 25 mg PO BID 11/04/19 Empagliflozin [Jardiance] 25 mg PO DAILY 11/04/19 Pantoprazole Sodium [Protonix] 40 mg PO DAILY 11/04/19 Ranolazine [Ranexa] 500 mg PO BID 11/04/19 Doxazosin Mesylate 2 mg PO DAILY 11/05/19 Glimepiride [Amaryl -] 1 mg PO DAILY 11/05/19 Tiotropium [place] [Spiriva] 1 inh PO DAILY 11/05/19 hydrALAZINE HCL [Apresoline -] 25 mg PO BID 11/05/19 Review of Systems Unable to obtain ROS, reason: not able to provide Physical Exam Vital Sings: Vital Signs Temperature 98.2 F 11/05/19 14:12 Pulse Rate 65 11/05/19 14:12 Respiratory Rate 20 11/05/19 14:12 Blood Pressure 126/49 L 11/05/19 14:12 O2 Sat by Pulse Oximetry (%) 99 11/05/19 11:55 Constitutional: Yes: Cachectic, Mild Distress, Thin Eyes: Yes: Conjunctiva Clear, EOM Intact HENT: Yes: Atraumatic, Normocephalic Neck: Yes: Supple, Trachea Midline Cardiovascular: Yes: Tachycardia Respiratory: Yes: Cough, On Nasal O2, Rales, Rhonchi, SOB, SOB on Exertion, Tachypnea. No: Accessory Muscle Use, Stridor, Wheezes ...Inspection: Yes: WNL ...Clubbing: No Gastrointestinal: Yes: Normal Bowel Sounds, Soft Breast(s): Yes: WNL Musculoskeletal: Yes: WNL Extremities: Yes: WNL Edema: Yes Peripheral Pulses WNL: Yes Integumentary: Yes: WNL Neurological: Yes: Confusion, Lethargy Labs: CBC, BMP 11/05/19 06:05 11/05/19 06:05 ABG Results ABG pH 7.414 (7.350-7.450) 11/04/19 09:58 ABG HCO3 30.7 mmol/L (22-27) H 11/04/19 09:58 ABG O2 Sat (Measured) 92.9 mmHg (95-98) L 11/04/19 09:58 ABG O2 Content No Result Required. 11/04/19 09:58 ABG Base Excess 5.4 mmol/L (-2-2) H 11/04/19 09:58 Imaging - Results Chest X-ray: Report Reviewed, Image Reviewed Problem List - Problems (1) Acute on chronic diastolic (congestive) heart failure Code(s): I50.33 - ACUTE ON CHRONIC DIASTOLIC (CONGESTIVE) HEART FAILURE (2) Respiratory failure Code(s): J96.90 - RESPIRATORY FAILURE, UNSP, UNSP W HYPOXIA OR HYPERCAPNIA Qualifiers: Chronicity: acute Respiratory failure complication: hypoxia Qualified Code(s): J96.01 - Acute respiratory failure with hypoxia (3) Anemia Code(s): D64.9 - ANEMIA, UNSPECIFIED Qualifiers: Anemia type: unspecified type Qualified Code(s): D64.9 - Anemia, unspecified (4) Anemia due to chronic blood loss Code(s): D50.0 - IRON DEFICIENCY ANEMIA SECONDARY TO BLOOD LOSS (CHRONIC) (5) Gastric adenoma Code(s): D13.1 - BENIGN NEOPLASM OF STOMACH (6) Gastric dysplasia Code(s): Q40.3 - CONGENITAL MALFORMATION OF STOMACH, UNSPECIFIED (7) Hypercholesterolemia Code(s): E78.00 - PURE HYPERCHOLESTEROLEMIA, UNSPECIFIED (8) PAF (paroxysmal atrial fibrillation) Code(s): I48.0 - PAROXYSMAL ATRIAL FIBRILLATION (9) Peripheral vascular disease Code(s): I73.9 - PERIPHERAL VASCULAR DISEASE, UNSPECIFIED (10) Pulmonary hypertension Code(s): I27.20 - PULMONARY HYPERTENSION, UNSPECIFIED (11) Pulmonary vascular congestion Code(s): R09.89 - OTH SYMPTOMS AND SIGNS INVOLVING THE CIRC AND RESP SYSTEMS (12) S/P CABG (coronary artery bypass graft) Code(s): Z95.1 - PRESENCE OF AORTOCORONARY BYPASS GRAFT (13) CHF (congestive heart failure) Code(s): I50.9 - HEART FAILURE, UNSPECIFIED Qualifiers: Heart failure type: unspecified Heart failure chronicity: acute on chronic Qualified Code(s): I50.9 - Heart failure, unspecified (14) DM Diabetes mellitus Code(s): E11.9 - TYPE 2 DIABETES MELLITUS WITHOUT COMPLICATIONS (15) Emphysema lung Code(s): J43.9 - EMPHYSEMA, UNSPECIFIED (16) ILD (interstitial lung disease) Code(s): J84.9 - INTERSTITIAL PULMONARY DISEASE, UNSPECIFIED (17) Renal insufficiency Code(s): N28.9 - DISORDER OF KIDNEY AND URETER, UNSPECIFIED (18) Acute hypoxemic respiratory failure Code(s): J96.01 - ACUTE RESPIRATORY FAILURE WITH HYPOXIA Assessment/Plan IMP: Low clinical suspicion of PNA PLAN: Noted empiric ABX per ID NIPPV as needed Supplemental O2 to maintain saturation Aspiration precautions BD TX Lasix VTE prophylaxis Will follow Thank you. Dr Chu
[2019-11-05] MEDS: TIOTROPIUM BROMIDE 2.5 MCG (SPIRIVA) RESPIMAT INHALER IH SCH (16:05)
--- NOTE | 2019-11-05 16:19 | PN ---
Physical Exam: SUBJECTIVE: Patient seen and examined at bedside. The patient has significant slurring of his speech at baseline but is A&Ox3 with no pronator drift when he lifts his arms or asymmetry of his mouth when he smiles. The patient denies chest pain, shortness of breath, diarrhea, constipation, and nausea. In the afternoon, the patient had black stool and an FOBT series was ordered. Findings from [facility] papers faxed over today regarding previous [facility] admission (i.e. the admission where the patient was transferred from [facility]): > Hospital course at [facility] (transferred to [facility] from [facility]): 10/20/19 until 10/29/19 > Reason for [facility] hospitalization transfer: "Altered Mental Status and possible stroke" > Procedures at [facility]: CXR, Head CT, CTA Head and Neck, No tPA given, US Duplex Carotid/Vertebral Artery > During [facility] hospital stay, patient "had multiple fluctuation in his mental status and cognition". The patient's family reported at [facility] that "his neurocognitive function has been declining significantly in the past 2-4 weeks, including delusions, changing language from mostly Uzbek to only Mongolian (patient's first language), delusions/hallucinations, and not walking anymore because he reports he is afraid to fall. The psych team was consulted and they recommended that his agitation may be acute delirium on chronic major neurocognitive decline." The patient was given "Quetiapine 12.5mg Q6Hr BID standing for agitation and psychosis and Quetiapine 12.5mg Q6Hr PRN agitation when he was compliant with taking his medications, which seemed to calm his aggression sufficiently". > CT Head Results 10/19/19: "1. No acute intracranial hemorrhage is visualized. 2. Multiple regions of chronic appearing infarction as described above. 3. No evidence for acute infarction is demonstrated. ASPECTS 10." > CTA Head and Neck Results 10/19/19: "CT angiography of the neck: 1. Atherosclerosis of the bilateral common carotid bifurcations, with mild stenosis of the right carotid bifurcation bifurcation utilizing NASCET criteria. 2. Occlusion of the right vertebral artery at the level of C2 without distal reconstitution of the artery." "CT angiography [place]: 1. Mild, focal narrowing of the M2 branches of the middle cerebral artery bilaterally. 2. 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 Pneumonia should be excluded clinically." > US Duplex Carotid/Vertebral Artery Results 10/22/19: "1. At least 70-99% narrowing of the right internal carotid artery origin as per NASCET criteria. 2. At least 50-69% narrowing of the left internal carotid artery as per NASCET criteria." > H&P from 10/20/19 also stated: "Although patient has h/o gastric adenocarcinoma it was confirmed with Dr. Bradford GI attending that this mass was resected around 2015" OBJECTIVE: Vital Signs Period Temp Pulse Resp BP Sys/Knutson Pulse Ox Last 24 Hr 98.2 F-102.6 F 61-95 20-30 122-158/44-73 94-99 GENERAL: The patient is awake, alert, and fully oriented, in no acute distress. HEAD: Normal with no signs of trauma. EYES: PERRL, extraocular movements intact. No ptosis. ENT: Ears normal, nares patent, oropharynx clear without exudates, moist mucous membranes. Tongue large and erythematous. NECK: Trachea midline, full range of motion, supple. LUNGS: Breath sounds equal, clear to auscultation bilaterally, no wheezes, no crackles, no accessory muscle use. HEART: Regular rate and rhythm, S1, S2 without murmur, rub or gallop. ABDOMEN: Soft, nontender, nondistended, normoactive bowel sounds, no guarding, no rebound, no masses. EXTREMITIES: 2+ pulses, warm, well-perfused, no edema. NEUROLOGICAL: Normal speech, gait not observed. PSYCH: Normal mood, normal affect. SKIN: Warm, dry, normal turgor, no rashes or lesions noted. FOBT Test: Stool was black Laboratory Results - last 24 hr 11/04/19 11/04/19 11/04/19 15:35 17:09 21:00 WBC RBC Hgb Hct MCV MCH MCHC RDW Plt Count MPV Absolute Neuts (auto) Neutrophils % Lymphocytes % Monocytes % Eosinophils % Basophils % Nucleated RBC % Sodium Potassium 5.4 H Chloride Carbon Dioxide Anion Gap BUN Creatinine Est GFR (CKD-EPI)AfAm Est GFR (CKD-EPI)NonAf POC Glucometer 49 Random Glucose Calcium Phosphorus Magnesium Total Bilirubin AST ALT Alkaline Phosphatase Total Protein Albumin Urine Color Yellow Urine Appearance Clear Urine pH 5.5 D Ur Specific [place] 1.013 Urine Protein Negative Urine Glucose (UA) 2+ H Urine Ketones Negative Urine Blood Trace Urine Nitrite Negative Urine Bilirubin Negative Urine Urobilinogen 0.2 Ur Leukocyte Esterase Negative Urine WBC (Auto) 21 Urine RBC (Auto) 22 Urine Casts (Auto) 1 U Epithel Cells (Auto) 10 Urine Bacteria (Auto) 2 11/05/19 11/05/19 11/05/19 05:36 05:44 06:05 WBC RBC Hgb Hct MCV MCH MCHC RDW Plt Count MPV Absolute Neuts (auto) Neutrophils % Lymphocytes % Monocytes % Eosinophils % Basophils % Nucleated RBC % Sodium 139 Potassium 4.3 Chloride 100 Carbon Dioxide 34 H Anion Gap 5 L BUN 44.2 H Creatinine 2.7 H Est GFR (CKD-EPI)AfAm 24.17 Est GFR (CKD-EPI)NonAf 20.85 POC Glucometer 40 41 Random Glucose 72 L Calcium 7.8 L Phosphorus 4.4 Magnesium 3.2 H Total Bilirubin 0.8 AST 15 ALT < 6 L Alkaline Phosphatase 62 Total Protein 5.7 L Albumin 2.8 L Urine Color Urine Appearance Urine pH Ur Specific [place] Urine Protein Urine Glucose (UA) Urine Ketones Urine Blood Urine Nitrite Urine Bilirubin Urine Urobilinogen Ur Leukocyte Esterase Urine WBC (Auto) Urine RBC (Auto) Urine Casts (Auto) U Epithel Cells (Auto) Urine Bacteria (Auto) 11/05/19 11/05/19 11/05/19 06:05 06:21 10:45 WBC 13.9 H RBC 2.98 L Hgb 8.8 L Hct 27.6 L MCV 92.6 MCH 29.6 MCHC 32.0 RDW 18.9 H Plt Count 215 MPV 8.6 Absolute Neuts (auto) 11.8 H Neutrophils % 84.8 H Lymphocytes % 3.1 L D Monocytes % 11.7 H Eosinophils % 0.1 Basophils % 0.3 Nucleated RBC % 0 Sodium Potassium Chloride Carbon Dioxide Anion Gap BUN Creatinine Est GFR (CKD-EPI)AfAm Est GFR (CKD-EPI)NonAf POC Glucometer 178 196 Random Glucose Calcium Phosphorus Magnesium Total Bilirubin AST ALT Alkaline Phosphatase Total Protein Albumin Urine Color Urine Appearance Urine pH Ur Specific [place] Urine Protein Urine Glucose (UA) Urine Ketones Urine Blood Urine Nitrite Urine Bilirubin Urine Urobilinogen Ur Leukocyte Esterase Urine WBC (Auto) Urine RBC (Auto) Urine Casts (Auto) U Epithel Cells (Auto) Urine Bacteria (Auto) Active Medications Generic Name Dose Route Start Last Admin Trade Name Freq PRN Reason Stop Dose Admin Acetaminophen 650 mg 11/04/19 21:46 11/04/19 22:24 Tylenol - PO 650 mg Q6H PRN Administration Fever Or Pain Amlodipine Besylate 10 mg 11/05/19 10:00 11/05/19 09:16 Norvasc - PO 10 mg DAILY RANJAN Administration Budesonide/Formoterol Fumarate puff 11/05/19 14:45 Symbicort 160/4.5mcg - IH ASDIR RANJAN Carbidopa/Levodopa 1 combo 11/04/19 22:00 11/05/19 09:16 Sinemet *Cr* 50/200 - PO 1 combo BID RANJAN Administration Carvedilol 25 mg 11/04/19 22:00 11/05/19 09:13 Coreg - PO 25 mg BID RANJAN Administration Doxazosin Mesylate 2 mg 11/05/19 22:00 Cardura - PO HS RANJAN Furosemide 40 mg 11/05/19 10:00 11/05/19 09:12 Lasix Injection - IVPUSH 40 mg DAILY RANJAN Administration Piperacillin Sod/Tazobactam 50 mls @ 100 mls/hr 11/05/19 18:00 Sod 2.25 gm/ Dextrose IVPB Q8H-IV RANJAN Protocol Insulin Aspart 1 vial 11/04/19 16:30 11/05/19 10:47 Novolog Vial Sliding Scale - SQ 2 units ACHS RANJAN Administration Protocol Pantoprazole Sodium 40 mg 11/05/19 10:00 11/05/19 09:16 Protonix - PO 40 mg DAILY RANJAN Administration Ranolazine 500 mg 11/04/19 22:00 11/05/19 09:13 Ranexa - PO 500 mg BID RANJAN Administration Tiotropium [place] 1 puff 11/05/19 14:45 Spiriva Respimat IH DAILY RANJAN ASSESSMENT/PLAN: 84 year old male patient with past medical history that includes COPD on 2 lpm, Diastolic CHF, AFib off Eliquis, GERD, HTN, HLD, Parkinson's Disease, CAD with CABGx2, Prostate Ca on RTx, Gastric Adenoma resected around 2015, and ILD, who presented to the ED with shortness of breath and hypoxia. 1. Hypoxia secondary to COPD exacerbation vs CHF exacerbation vs PNA vs aspiration PNA - PMHx of COPD on 2 lpm home O2 - PMHx of diastolic CHF - CXR shows congestive changes and a possible infiltrate - Physical exam shows a large erythematous tongue with slurring of speech - BNP 13,375, which is high - CXR shows that the patient has a large heart - 98% oxygen saturation on 4 lpm - IV Zosyn 2.25gm Day 1 - Lasix 2. Normocytic Anemia - Hgb 8.8 - MCV 92.6 - Black stool - FOBT series ordered - Monitoring the patient's Hgb 3. Possible ANÍBAL on CKD - Creatinine 2.7 - Baseline Creatinine appears to be 2.1 to 2.7 based on previous admissions 4. Leukocytosis secondary to possible PNA vs aspiration PNA - WBC 13.9 trending down from 17.1 yesterday - afebrile at 98.9F - CXR shows congestive changes and a possible infiltrate - IV Zosyn 2.25gm Day 1 Findings from [facility] papers faxed over today regarding previous [facility] admission (i.e. the admission where the patient was transferred from [facility]): > Hospital course at [facility] (transferred to [facility] from [facility]): 10/20/19 until 10/29/19 > Reason for [facility] hospitalization transfer: "Altered Mental Status and possible stroke" > Procedures at [facility]: CXR, Head CT, CTA Head and Neck, No tPA given, US Duplex Carotid/Vertebral Artery > During [facility] hospital stay, patient "had multiple fluctuation in his mental status and cognition". The patient's family reported at [facility] that "his neurocognitive function has been declining significantly in the past 2-4 weeks, including delusions, changing language from mostly Uzbek to only Mongolian (patient's first language), delusions/hallucinations, and not walking anymore because he reports he is afraid to fall. The psych team was consulted and they recommended that his agitation may be acute delirium on chronic major neurocognitive decline." The patient was given "Quetiapine 12.5mg Q6Hr BID standing for agitation and psychosis and Quetiapine 12.5mg Q6Hr PRN agitation when he was compliant with taking his medications, which seemed to calm his aggression sufficiently". > CT Head Results 10/19/19: "1. No acute intracranial hemorrhage is visualized. 2. Multiple regions of chronic appearing infarction as described above. 3. No evidence for acute infarction is demonstrated. ASPECTS 10." > CTA Head and Neck Results 10/19/19: "CT angiography of the neck: 1. Atherosclerosis of the bilateral common carotid bifurcations, with mild stenosis of the right carotid bifurcation bifurcation utilizing NASCET criteria. 2. Occlusion of the right vertebral artery at the level of C2 without distal reconstitution of the artery." "CT angiography [place]: 1. Mild, focal narrowing of the M2 branches of the middle cerebral artery bilaterally. 2. 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 Pneumonia should be excluded clinically." > US Duplex Carotid/Vertebral Artery Results 10/22/19: "1. At least 70-99% narrowing of the right internal carotid artery origin as per NASCET criteria. 2. At least 50-69% narrowing of the left internal carotid artery as per NASCET criteria." > H&P from 10/20/19 also stated: "Although patient has h/o gastric adenocarcinoma it was confirmed with Dr. Bradford GI attending that this mass was resected around 2015" # FEN - Monitoring Electrolytes. Sodium Controlled Diet. DVT PPx - SCDs bilaterally Visit type - Emergency Visit Emergency Visit: Yes ED Registration Date: 11/04/19 Care time: The patient presented to the Emergency Department on the above date and was hospitalized for further evaluation of their emergent condition. - New Patient This patient is new to me today: Yes Date on this admission: 11/05/19 - Critical Care Critical Care patient: No - Discharge Referral Referred to [facility] Med P.C.: No - Medication Review Med list reviewed for High Risk Meds patients 65 and older: Yes ATTENDING PHYSICIAN STATEMENT I saw and evaluated the patient. I reviewed the resident's note and discussed the case with the resident. I agree with the resident's findings and plan as documented. SUBJECTIVE: OBJECTIVE: ASSESSMENT AND PLAN:
[2019-11-05] MEDS: DOXAZOSIN MESYLATE 2 MG TABLET PO SCH (21:36)
[2019-11-05] MEDS ORDERED: BUDESONIDE/FORMETEROL FUMARATE 160/4.5 mcg INHALER IH SCH (22:00)
[2019-11-05] MEDS: BUDESONIDE/FORMETEROL FUMARATE 160/4.5 mcg INHALER IH SCH (22:35)
[2019-11-06] MEDS ORDERED: PIPERACILLIN/TAZOBACTAM 2.25 GM VIAL IVPB ONE ×3 (01:07→16:34)
[2019-11-06] MEDS ORDERED: DEXTROSE 5%-WATER - 50 ML IVPB ONE ×3 (01:08→16:34)
[2019-11-06] MEDS: PIPERACILLIN/TAZOB 2.25 GM 2.25 GM in DEXTROSE 5%-WATER - 50 ML IVPB SCH ×3 (01:23→17:08)
[2019-11-06] MEDS: INSULIN SLIDING SCALE (NOVOLOG) 1 VIAL SQ SCH ×4 (06:12→21:42)
[2019-11-06 07:23] LABS: BASO % 0.4 % (0-2.0); EOS % 0.8 % (0-4.5); HEMATOCRIT 24.5 % (35.4-49); LYMPH % 5.3 % (8-40); MCH 29.8 pg (25.7-33.7); MCHC 32.6 g/dl (32.0-35.9); MEAN CELL VOLUME 91.6 fl (80-96); MEAN PLT VOLUME 8.7 fl (7.5-11.1); MONO % 10.6 % (3.8-10.2); NEUT % 82.9 % (42.8-82.8); PLATELET COUNT 186 K/MM3 (134-434); RBC 2.68 M/mm3 (4.00-5.60); WHITE BLOOD COUNT 7.3 K/mm3 (4.0-10.0)
[2019-11-06 08:04] LABS: ALBUMIN 2.5 g/dl (3.4-5.0); ALK PHOS 62 U/L (45-117); ANION GAP 6 MMOL/L (8-16); BILIRUBIN,TOTAL 0.6 mg/dL (0.2-1); BLOOD UREA NITROGEN 46.1 mg/dL (7-18); CALCIUM 7.4 mg/dL (8.5-10.1); CHLORIDE 103 mmol/L (98-107); CO2 34 mmol/L (21-32); CREATININE 2.4 mg/dL (0.55-1.3); GLUCOSE,RANDOM 109 mg/dL (74-106); PHOSPHOROUS 4.7 mg/dL (2.5-4.9); POTASSIUM 3.8 mmol/L (3.5-5.1); SGOT/AST 16 U/L (15-37); SODIUM 143 mmol/L (136-145); TOT PROT 5.2 g/dl (6.4-8.2)
--- NOTE | 2019-11-06 08:07 | PN ---
Progress Note, Physician History of Present Illness: pulmonary alert,comfortable ,sob improving ambulating with PT - Current Medication List Current Medications: Active Medications Acetaminophen (Tylenol -) 650 mg PO Q6H PRN PRN Reason: Fever Or Pain Last Admin: 11/04/19 22:24 Dose: 650 mg Documented by: Amlodipine Besylate (Norvasc -) 10 mg PO DAILY [facility] Last Admin: 11/05/19 09:16 Dose: 10 mg Documented by: Budesonide/Formoterol Fumarate (Symbicort 160/4.5mcg -) 2 puff IH BID [facility] Last Admin: 11/05/19 22:35 Dose: 2 puff Documented by: Carbidopa/Levodopa (Sinemet *Cr* 50/200 -) 1 combo PO BID [facility] Last Admin: 11/05/19 21:36 Dose: 1 combo Documented by: Carvedilol (Coreg -) 25 mg PO BID [facility] Last Admin: 11/05/19 21:35 Dose: 25 mg Documented by: Doxazosin Mesylate (Cardura -) 2 mg PO HS [facility] Last Admin: 11/05/19 21:36 Dose: 2 mg Documented by: Furosemide (Lasix Injection -) 40 mg IVPUSH DAILY [facility] Last Admin: 11/05/19 09:12 Dose: 40 mg Documented by: Piperacillin Sod/Tazobactam (Sod 2.25 gm/ Dextrose) 50 mls @ 100 mls/hr IVPB Q8H-IV [facility]; Protocol Last Admin: 11/06/19 01:23 Dose: 100 mls/hr Documented by: Insulin Aspart (Novolog Vial Sliding Scale -) 1 vial SQ ACHS [facility]; Protocol Last Admin: 11/06/19 06:12 Dose: Not Given Documented by: Pantoprazole Sodium (Protonix -) 40 mg PO DAILY [facility] Last Admin: 11/05/19 09:16 Dose: 40 mg Documented by: Ranolazine (Ranexa -) 500 mg PO BID [facility] Last Admin: 11/05/19 21:35 Dose: 500 mg Documented by: Tiotropium [place] (Spiriva Respimat) 1 puff IH DAILY [facility] Last Admin: 11/05/19 16:05 Dose: Not Given Documented by: - Objective Vital Signs: Vital Signs Temperature 97.5 F L 11/06/19 06:00 Pulse Rate 59 L 11/06/19 06:00 Respiratory Rate 18 11/06/19 06:00 Blood Pressure 118/33 L 11/06/19 06:00 O2 Sat by Pulse Oximetry (%) 95 11/06/19 02:00 Constitutional: Yes: Calm, Thin Eyes: Yes: WNL HENT: Yes: WNL Neck: Yes: WNL Cardiovascular: Yes: Regular Rate and Rhythm, S1, S2 Respiratory: Yes: Diminished Gastrointestinal: Yes: Normal Bowel Sounds, Soft Extremities: Yes: WNL Edema: No Labs: CBC, BMP 11/06/19 06:37 11/06/19 06:37 INR, PTT INR 1.55 (0.83-1.09) H 11/04/19 09:49 Assessment/Plan Problem List - Problems (1) Acute on chronic diastolic (congestive) heart failure Code(s): I50.33 - ACUTE ON CHRONIC DIASTOLIC (CONGESTIVE) HEART FAILURE (2) Respiratory failure Code(s): J96.90 - RESPIRATORY FAILURE, UNSP, UNSP W HYPOXIA OR HYPERCAPNIA Qualifiers: Chronicity: acute Respiratory failure complication: hypoxia Qualified Code(s): J96.01 - Acute respiratory failure with hypoxia (3) Anemia Code(s): D64.9 - ANEMIA, UNSPECIFIED Qualifiers: Anemia type: unspecified type Qualified Code(s): D64.9 - Anemia, unspecified (4) Anemia due to chronic blood loss Code(s): D50.0 - IRON DEFICIENCY ANEMIA SECONDARY TO BLOOD LOSS (CHRONIC) (5) Gastric adenoma Code(s): D13.1 - BENIGN NEOPLASM OF STOMACH (6) Gastric dysplasia Code(s): Q40.3 - CONGENITAL MALFORMATION OF STOMACH, UNSPECIFIED (7) Hypercholesterolemia Code(s): E78.00 - PURE HYPERCHOLESTEROLEMIA, UNSPECIFIED (8) PAF (paroxysmal atrial fibrillation) Code(s): I48.0 - PAROXYSMAL ATRIAL FIBRILLATION (9) Peripheral vascular disease Code(s): I73.9 - PERIPHERAL VASCULAR DISEASE, UNSPECIFIED (10) Pulmonary hypertension Code(s): I27.20 - PULMONARY HYPERTENSION, UNSPECIFIED (11) Pulmonary vascular congestion Code(s): R09.89 - OTH SYMPTOMS AND SIGNS INVOLVING THE CIRC AND RESP SYSTEMS (12) S/P CABG (coronary artery bypass graft) Code(s): Z95.1 - PRESENCE OF AORTOCORONARY BYPASS GRAFT (13) CHF (congestive heart failure) Code(s): I50.9 - HEART FAILURE, UNSPECIFIED Qualifiers: Heart failure type: unspecified Heart failure chronicity: acute on chronic Qualified Code(s): I50.9 - Heart failure, unspecified (14) DM Diabetes mellitus Code(s): E11.9 - TYPE 2 DIABETES MELLITUS WITHOUT COMPLICATIONS (15) Emphysema lung Code(s): J43.9 - EMPHYSEMA, UNSPECIFIED (16) ILD (interstitial lung disease) Code(s): J84.9 - INTERSTITIAL PULMONARY DISEASE, UNSPECIFIED (17) Renal insufficiency Code(s): N28.9 - DISORDER OF KIDNEY AND URETER, UNSPECIFIED (18) Acute hypoxemic respiratory failure Code(s): J96.01 - ACUTE RESPIRATORY FAILURE WITH HYPOXIA Assessment/Plan IMP: Low clinical suspicion of PNA PLAN: ABX per ID NIPPV as needed Supplemental O2 to maintain saturation Aspiration precautions BD TX Lasix VTE prophylaxis Daily wts DR SMITH
[2019-11-06 08:21] LABS: SGPT/ALT < 6 U/L (13-61)
[2019-11-06] MEDS ORDERED: PT OWN MED DRAWER 7, Y5N ONE ×2 (08:56→21:36)
[2019-11-06] MEDS: FUROSEMIDE 40 MG/4 ML INJECTABLE VIAL IVPUSH SCH (09:07)
[2019-11-06] MEDS: amLODIPine BESYLATE 10 MG TABLET (FP) PO SCH (09:08)
[2019-11-06] MEDS: RANOLAZINE E.R. 500 MG TABLET (FP) PO SCH ×2 (09:08→21:41)
[2019-11-06] MEDS: CARVEDILOL 25 MG TABLET (FP) PO SCH ×2 (09:08→21:42)
[2019-11-06] MEDS: PANTOPRAZOLE 40 MG TABLET PO SCH (09:08)
[2019-11-06] MEDS: TIOTROPIUM BROMIDE 2.5 MCG (SPIRIVA) RESPIMAT INHALER IH SCH (09:13)
[2019-11-06] MEDS: BUDESONIDE/FORMETEROL FUMARATE 160/4.5 mcg INHALER IH SCH ×2 (09:13→21:43)
--- NOTE | 2019-11-06 10:39 | PN ---
Progress Note, Physician History of Present Illness: Pt seen and examined at bedside. He is awake but confused. - Current Medication List Current Medications: Active Medications Acetaminophen (Tylenol -) 650 mg PO Q6H PRN PRN Reason: Fever Or Pain Last Admin: 11/04/19 22:24 Dose: 650 mg Documented by: Amlodipine Besylate (Norvasc -) 10 mg PO DAILY [facility] Last Admin: 11/06/19 09:08 Dose: 10 mg Documented by: Budesonide/Formoterol Fumarate (Symbicort 160/4.5mcg -) 2 puff IH BID [facility] Last Admin: 11/06/19 09:13 Dose: 2 puff Documented by: Carbidopa/Levodopa (Sinemet *Cr* 50/200 -) 1 combo PO BID [facility] Last Admin: 11/06/19 09:08 Dose: 1 combo Documented by: Carvedilol (Coreg -) 25 mg PO BID [facility] Last Admin: 11/06/19 09:08 Dose: 25 mg Documented by: Doxazosin Mesylate (Cardura -) 2 mg PO HS [facility] Last Admin: 11/05/19 21:36 Dose: 2 mg Documented by: Furosemide (Lasix Injection -) 40 mg IVPUSH DAILY [facility] Last Admin: 11/06/19 09:07 Dose: 40 mg Documented by: Piperacillin Sod/Tazobactam (Sod 2.25 gm/ Dextrose) 50 mls @ 100 mls/hr IVPB Q8H-IV [facility]; Protocol Last Admin: 11/06/19 09:08 Dose: 100 mls/hr Documented by: Insulin Aspart (Novolog Vial Sliding Scale -) 1 vial SQ ACHS [facility]; Protocol Last Admin: 11/06/19 06:12 Dose: Not Given Documented by: Pantoprazole Sodium (Protonix -) 40 mg PO DAILY [facility] Last Admin: 11/06/19 09:08 Dose: 40 mg Documented by: Ranolazine (Ranexa -) 500 mg PO BID [facility] Last Admin: 11/06/19 09:08 Dose: 500 mg Documented by: Tiotropium [place] (Spiriva Respimat) 1 puff IH DAILY [facility] Last Admin: 11/06/19 09:13 Dose: 1 puff Documented by: - Objective Vital Signs: Vital Signs Temperature 98.6 F 11/06/19 10:02 Pulse Rate 61 11/06/19 10:02 Respiratory Rate 18 11/06/19 10:02 Blood Pressure 136/51 L 11/06/19 10:02 O2 Sat by Pulse Oximetry (%) 100 11/06/19 10:02 Constitutional: Yes: Calm Eyes: Yes: Conjunctiva Clear HENT: Yes: Atraumatic Neck: Yes: Supple Cardiovascular: Yes: S1, S2 Respiratory: Yes: CTA Bilaterally, On Nasal O2 Gastrointestinal: Yes: Soft Genitourinary: Yes: WNL Musculoskeletal: Yes: WNL Edema: No Integumentary: Yes: WNL Neurological: Yes: Confusion Labs: CBC, BMP 11/06/19 06:37 11/06/19 06:37 INR, PTT INR 1.55 (0.83-1.09) H 11/04/19 09:49 Problem List - Problems (1) Acute on chronic diastolic (congestive) heart failure Code(s): I50.33 - ACUTE ON CHRONIC DIASTOLIC (CONGESTIVE) HEART FAILURE (2) ILD (interstitial lung disease) Code(s): J84.9 - INTERSTITIAL PULMONARY DISEASE, UNSPECIFIED Assessment/Plan Current Medications Generic Name Dose Route Start Last Admin Trade Name Freq PRN Reason Stop Dose Admin Acetaminophen 650 mg 11/04/19 21:46 11/04/19 22:24 Tylenol - PO 650 mg Q6H PRN Administration Fever Or Pain Amlodipine Besylate 10 mg 11/05/19 10:00 11/06/19 09:08 Norvasc - PO 10 mg DAILY [facility]AN Administration Budesonide/Formoterol Fumarate 2 puff 11/05/19 22:00 11/06/19 09:13 Symbicort 160/4.5mcg - IH 2 puff BID RANJAN Administration Carbidopa/Levodopa 1 combo 11/04/19 22:00 11/06/19 09:08 Sinemet *Cr* 50/200 - PO 1 combo BID [facility]AN Administration Carvedilol 25 mg 11/04/19 22:00 11/06/19 09:08 Coreg - PO 25 mg BID [facility]ANJAN Administration Doxazosin Mesylate 2 mg 11/05/19 22:00 11/05/19 21:36 Cardura - PO 2 mg HS RANJAN Administration Furosemide 40 mg 11/05/19 10:00 11/06/19 09:07 Lasix Injection - IVPUSH 40 mg DAILY [facility]AN Administration Piperacillin Sod/Tazobactam 50 mls @ 100 mls/hr 11/05/19 18:00 11/06/19 09:08 Sod 2.25 gm/ Dextrose IVPB 100 mls/hr Q8H-IV [facility]AN Administration Protocol Insulin Aspart 1 vial 11/04/19 16:30 11/06/19 06:12 Novolog Vial Sliding Scale - SQ Not Given ACHS [facility]AN Protocol Pantoprazole Sodium 40 mg 11/05/19 10:00 11/06/19 09:08 Protonix - PO 40 mg DAILY [facility] Administration Ranolazine 500 mg 11/04/19 22:00 11/06/19 09:08 Ranexa - PO 500 mg BID [facility]AN Administration Tiotropium [place] 1 puff 11/05/19 14:45 11/06/19 09:13 Spiriva Respimat IH 1 puff DAILY [facility] Administration Impression 1. ckd 2. anemia 3. chf 4. hc hemoptysis 5. ILD 6. cad 7. htn 8. a-fib 9. cva 10. ANÍBAL Plan - renal function improving - repeat labs in am - cont lasix - volume status improving - repeat labs in am - avoid nsiads
--- NOTE | 2019-11-06 13:47 | PN ---
Physical Exam: SUBJECTIVE: Patient seen and examined at bedside. The patient reported feeling fatigued and sometimes cold but no shortness of breath. Regarding his black stool, he reports taking 2 iron supplements, one in the morning and one in the evening. He reports that he doesn't know the last time he had a colonoscopy. OBJECTIVE: Vital Signs Period Temp Pulse Resp BP Sys/Knutson Pulse Ox Last 24 Hr 97.5 F-98.6 F 59-67 16-20 110-136/30-51 92-100 GENERAL: The patient is awake, alert, and fully oriented, in no acute distress. HEAD: Normal with no signs of trauma. EYES: PERRL, extraocular movements intact. No ptosis. ENT: Ears normal, nares patent, oropharynx clear without exudates, moist mucous membranes. Large tongue. NECK: Trachea midline, full range of motion, supple. LUNGS: Breath sounds equal, clear to auscultation bilaterally, no wheezes, no crackles, no accessory muscle use. HEART: Regular rate and rhythm, S1, S2 without murmur, rub or gallop. ABDOMEN: Soft, nontender, nondistended, normoactive bowel sounds, no guarding, no rebound, no masses. EXTREMITIES: 2+ pulses, warm, well-perfused, no edema. NEUROLOGICAL: slurred speech, gait not observed. speaks [place]. PSYCH: Normal mood, normal affect. SKIN: Warm, dry, normal turgor, no rashes or lesions noted. Laboratory Results - last 24 hr 11/04/19 11/05/19 11/05/19 15:45 15:45 17:13 WBC RBC Hgb Hct MCV MCH MCHC RDW Plt Count MPV Absolute Neuts (auto) Neutrophils % Lymphocytes % Monocytes % Eosinophils % Basophils % Nucleated RBC % Sodium Potassium Chloride Carbon Dioxide Anion Gap BUN Creatinine Est GFR (CKD-EPI)AfAm Est GFR (CKD-EPI)NonAf POC Glucometer 85 Random Glucose Calcium Phosphorus Magnesium Total Bilirubin AST ALT Alkaline Phosphatase Total Protein Albumin Stool Occult Blood Trace COVID-19 (GIOVANI) Not detected 11/06/19 11/06/19 11/06/19 05:32 06:37 06:37 WBC 7.3 RBC 2.68 L Hgb 8.0 L Hct 24.5 L MCV 91.6 MCH 29.8 MCHC 32.6 RDW 19.0 H Plt Count 186 MPV 8.7 Absolute Neuts (auto) 6.0 Neutrophils % 82.9 H Lymphocytes % 5.3 L D Monocytes % 10.6 H Eosinophils % 0.8 D Basophils % 0.4 Nucleated RBC % 0 Sodium 143 Potassium 3.8 Chloride 103 Carbon Dioxide 34 H Anion Gap 6 L BUN 46.1 H Creatinine 2.4 H Est GFR (CKD-EPI)AfAm 27.87 Est GFR (CKD-EPI)NonAf 24.04 POC Glucometer 70 Random Glucose 109 H Calcium 7.4 L Phosphorus 4.7 Magnesium 3.0 H Total Bilirubin 0.6 AST 16 ALT < 6 L Alkaline Phosphatase 62 Total Protein 5.2 L Albumin 2.5 L Stool Occult Blood COVID-19 (GIOVANI) 11/06/19 10:58 WBC RBC Hgb Hct MCV MCH MCHC RDW Plt Count MPV Absolute Neuts (auto) Neutrophils % Lymphocytes % Monocytes % Eosinophils % Basophils % Nucleated RBC % Sodium Potassium Chloride Carbon Dioxide Anion Gap BUN Creatinine Est GFR (CKD-EPI)AfAm Est GFR (CKD-EPI)NonAf POC Glucometer 196 Random Glucose Calcium Phosphorus Magnesium Total Bilirubin AST ALT Alkaline Phosphatase Total Protein Albumin Stool Occult Blood COVID-19 (GIOVANI) Active Medications Generic Name Dose Route Start Last Admin Trade Name Freq PRN Reason Stop Dose Admin Acetaminophen 650 mg 11/04/19 21:46 11/04/19 22:24 Tylenol - PO 650 mg Q6H PRN Administration Fever Or Pain Amlodipine Besylate 10 mg 11/05/19 10:00 11/06/19 09:08 Norvasc - PO 10 mg DAILY [facility] Administration Budesonide/Formoterol Fumarate 2 puff 11/05/19 22:00 11/06/19 09:13 Symbicort 160/4.5mcg - IH 2 puff BID [facility]JAN Administration Carbidopa/Levodopa 1 combo 11/04/19 22:00 11/06/19 09:08 Sinemet *Cr* 50/200 - PO 1 combo BID [facility]JAN Administration Carvedilol 25 mg 11/04/19 22:00 11/06/19 09:08 Coreg - PO 25 mg BID [facility]JAN Administration Doxazosin Mesylate 2 mg 11/05/19 22:00 11/05/19 21:36 Cardura - PO 2 mg HS RANJAN Administration Furosemide 40 mg 11/05/19 10:00 11/06/19 09:07 Lasix Injection - IVPUSH 40 mg DAILY [facility] Administration Piperacillin Sod/Tazobactam 50 mls @ 100 mls/hr 11/05/19 18:00 11/06/19 09:08 Sod 2.25 gm/ Dextrose IVPB 100 mls/hr Q8H-IV [facility]AN Administration Protocol Insulin Aspart 1 vial 11/04/19 16:30 11/06/19 10:59 Novolog Vial Sliding Scale - SQ Not Given ACHS R[facility]JAN Protocol Pantoprazole Sodium 40 mg 11/05/19 10:00 11/06/19 09:08 Protonix - PO 40 mg DAILY [facility] Administration Ranolazine 500 mg 11/04/19 22:00 11/06/19 09:08 Ranexa - PO 500 mg BID [facility]AN Administration Tiotropium [place] 1 puff 11/05/19 14:45 11/06/19 09:13 Spiriva Respimat IH 1 puff DAILY [facility]AN Administration ASSESSMENT/PLAN: 84 year old male patient with past medical history that includes COPD on 2 lpm, Diastolic CHF, AFib off Eliquis, GERD, HTN, HLD, Parkinson's Disease, CAD with CABGx2, Prostate Ca on RTx, Gastric Adenoma resected around 2015, and ILD, who presented to the ED with shortness of breath and hypoxia. 1. Hypoxia secondary to COPD exacerbation vs CHF exacerbation vs PNA vs aspiration PNA - PMHx of COPD on 2 lpm home O2 - PMHx of diastolic CHF - CXR shows congestive changes and a possible infiltrate - Physical exam shows a large erythematous tongue with slurring of speech - BNP was 13,375, which is high - CXR shows that the patient has a large heart - 100% oxygen saturation on 3 lpm - IV Zosyn 2.25gm Day 2 - Lasix 2. Normocytic Anemia - Hgb 8.0 - MCV 91.6 - FOBT series ordered - FOBT showed trace blood - Monitoring the patient's Hgb 3. Possible ANÍBAL on CKD - Creatinine 2.4 - Baseline Creatinine appears to be 2.1 to 2.7 based on previous admissions 4. Leukocytosis secondary to possible PNA vs aspiration PNA - resolved - WBC 7.3 9 trending down from 17.1 yesterday - afebrile at 98.6F - CXR showed congestive changes and a possible infiltrate - IV Zosyn 2.25gm Day 2 # FEN - Monitoring Electrolytes. Sodium Controlled Diet. DVT PPx - SCDs bilaterally Visit type - Emergency Visit Emergency Visit: Yes ED Registration Date: 11/04/19 Care time: The patient presented to the Emergency Department on the above date and was hospitalized for further evaluation of their emergent condition. - New Patient This patient is new to me today: No - Critical Care Critical Care patient: No - Discharge Referral Referred to [facility] Med [facility].C[facility] No - Medication Review Med list reviewed for High Risk Meds patients 65 and older: Yes ATTENDING PHYSICIAN STATEMENT I saw and evaluated the patient. I reviewed the resident's note and discussed the case with the resident. I agree with the resident's findings and plan as documented. SUBJECTIVE: OBJECTIVE: ASSESSMENT AND PLAN:
--- NOTE | 2019-11-06 15:28 | PN ---
Teaching Attending Note Name of Resident: Baljit Strong ATTENDING PHYSICIAN STATEMENT I saw and evaluated the patient. I reviewed the resident's note and discussed the case with the resident. I agree with the resident's findings and plan as documented. SUBJECTIVE: Patient feels well has no complaints OBJECTIVE: Vital Signs Period Temp Pulse Resp BP Sys/Knutson Pulse Ox Last 24 Hr 97.5 F-98.6 F 58-67 16-18 110-136/30-51 92-100 GENERAL: Awake, alert, and fully oriented, in no acute distress. HEAD: Normal with no signs of trauma. EYES: Pupils equal, round and reactive to light, extraocular movements intact, sclera anicteric, conjunctiva clear. No lid lag. EARS, NOSE, THROAT: Ears normal, nares patent, oropharynx clear without exudates. Moist mucous membranes. NECK: Normal range of motion, supple without lymphadenopathy, JVD, or masses. LUNGS: Breath sounds equal, clear to auscultation bilaterally. No wheezes, and no crackles. No accessory muscle use. HEART: Regular rate and rhythm, normal S1 and S2 without murmur, rub or gallop. ABDOMEN: Soft, nontender, not distended, normoactive bowel sounds, no guarding, no rebound, no masses. No hepatomegaly or splenomegaly. MUSCULOSKELETAL: Normal range of motion at all joints. No bony deformities or tenderness. No CVA tenderness. UPPER EXTREMITIES: 2+ pulses, warm, well-perfused. No cyanosis. No clubbing. Cap refill <2 seconds. No peripheral edema. LOWER EXTREMITIES: 2+ pulses, warm, well-perfused. No calf tenderness. No peripheral edema. NEUROLOGICAL: Cranial nerves II-XII intact. slurred speech (baseline) PSYCHIATRIC: Cooperative. Good eye contact. SKIN: Warm, dry, normal turgor, no rashes or lesions noted. ASSESSMENT AND PLAN: 84 y/o M with PMH as noted who presents with shortness of breath/hypoxia Hypoxia: Now resolved back on 2L NC continue diuresis at this time; transition to PO can discharge to complete 5-7 day of abx total rest of plan as per resident note
[2019-11-06 15:54] LABS: HEMATOCRIT 25.7 % (35.4-49); HEMOGLOBIN 8.2 GM/dL (11.7-16.9); MCH 29.9 pg (25.7-33.7); MEAN CELL VOLUME 93.2 fl (80-96); MEAN PLT VOLUME 8.9 fl (7.5-11.1); PLATELET COUNT 192 K/MM3 (134-434); RBC 2.76 M/mm3 (4.00-5.60); RDW 18.6 % (11.9-15.9); WHITE BLOOD COUNT 6.7 K/mm3 (4.0-10.0)
--- NOTE | 2019-11-06 20:36 | PN ---
Progress Note, Physician History of Present Illness: AWAKE, SEATED IN BED MORE ALERT NO COMPLAINTS BREATHING NON LABORED ON NASAL CANNULA AFEBRILE WBC IMPROVED WNL AZOTEMIA IMPROVED - Current Medication List Current Medications: Active Medications Acetaminophen (Tylenol -) 650 mg PO Q6H PRN PRN Reason: Fever Or Pain Last Admin: 11/04/19 22:24 Dose: 650 mg Documented by: Amlodipine Besylate (Norvasc -) 10 mg PO DAILY [facility] Last Admin: 11/06/19 09:08 Dose: 10 mg Documented by: Budesonide/Formoterol Fumarate (Symbicort 160/4.5mcg -) 2 puff IH BID [facility] Last Admin: 11/06/19 09:13 Dose: 2 puff Documented by: Carbidopa/Levodopa (Sinemet *Cr* 50/200 -) 1 combo PO BID [facility] Last Admin: 11/06/19 09:08 Dose: 1 combo Documented by: Carvedilol (Coreg -) 25 mg PO BID [facility] Last Admin: 11/06/19 09:08 Dose: 25 mg Documented by: Doxazosin Mesylate (Cardura -) 2 mg PO HS [facility] Last Admin: 11/05/19 21:36 Dose: 2 mg Documented by: Furosemide (Lasix -) 80 mg PO DAILY [facility] Piperacillin Sod/Tazobactam (Sod 2.25 gm/ Dextrose) 50 mls @ 100 mls/hr IVPB Q8H-IV [facility]; Protocol Last Admin: 11/06/19 17:08 Dose: 100 mls/hr Documented by: Insulin Aspart (Novolog Vial Sliding Scale -) 1 vial SQ ACHS [facility]; Protocol Last Admin: 11/06/19 17:08 Dose: Not Given Documented by: Pantoprazole Sodium (Protonix -) 40 mg PO DAILY [facility] Last Admin: 11/06/19 09:08 Dose: 40 mg Documented by: Ranolazine (Ranexa -) 500 mg PO BID [facility] Last Admin: 11/06/19 09:08 Dose: 500 mg Documented by: Tiotropium [place] (Spiriva Respimat) 1 puff IH DAILY [facility] Last Admin: 11/06/19 09:13 Dose: 1 puff Documented by: - Objective Vital Signs: Vital Signs Temperature 97.9 F 11/06/19 18:00 Pulse Rate 65 11/06/19 18:00 Respiratory Rate 18 11/06/19 18:00 Blood Pressure 132/45 L 11/06/19 18:00 O2 Sat by Pulse Oximetry (%) 100 11/06/19 18:00 Constitutional: Yes: No Distress Eyes: Yes: Conjunctiva Clear Cardiovascular: Yes: Regular Rate and Rhythm, S1, S2 Respiratory: Yes: Diminished Gastrointestinal: Yes: Normal Bowel Sounds, Soft. No: Tenderness Edema: No Labs: CBC, BMP 11/06/19 15:22 11/06/19 06:37 INR, PTT INR 1.55 (0.83-1.09) H 11/04/19 09:49 Assessment/Plan R/O HCAP CHF LEUKOCYTOSIS IMPROVED AZOTEMIA IMPROVED CONTINUE EMPIRIC ZOSYN
[2019-11-06] MEDS: DOXAZOSIN MESYLATE 2 MG TABLET PO SCH (21:42)
[2019-11-07] MEDS ORDERED: PIPERACILLIN/TAZOBACTAM 2.25 GM VIAL IVPB ONE ×3 (01:21→18:29)
[2019-11-07] MEDS ORDERED: DEXTROSE 5%-WATER - 50 ML IVPB ONE ×3 (01:21→18:30)
[2019-11-07] MEDS: PIPERACILLIN/TAZOB 2.25 GM 2.25 GM in DEXTROSE 5%-WATER - 50 ML IVPB SCH ×3 (01:34→18:33)
[2019-11-07] MEDS: INSULIN SLIDING SCALE (NOVOLOG) 1 VIAL SQ SCH ×4 (07:01→22:16)
[2019-11-07 08:15] LABS: BASO % 0.5 % (0-2.0); EOS % 1.1 % (0-4.5); HEMATOCRIT 23.3 % (35.4-49); HEMOGLOBIN 7.6 GM/dL (11.7-16.9); MCH 29.5 pg (25.7-33.7); MCHC 32.6 g/dl (32.0-35.9); MEAN CELL VOLUME 90.6 fl (80-96); MEAN PLT VOLUME 8.5 fl (7.5-11.1); MONO % 9.2 % (3.8-10.2); NEUT % 84.2 % (42.8-82.8); PLATELET COUNT 190 K/MM3 (134-434); RBC 2.57 M/mm3 (4.00-5.60); RDW 18.6 % (11.9-15.9); WHITE BLOOD COUNT 6.4 K/mm3 (4.0-10.0)
[2019-11-07 08:40] LABS: CHLORIDE 102 mmol/L (98-107); POTASSIUM 4.2 mmol/L (3.5-5.1); SODIUM 141 mmol/L (136-145)
[2019-11-07 08:59] LABS: ALBUMIN 2.5 g/dl (3.4-5.0); ALK PHOS 57 U/L (45-117); ANION GAP 6 MMOL/L (8-16); BILIRUBIN,TOTAL 0.6 mg/dL (0.2-1); BLOOD UREA NITROGEN 45.2 mg/dL (7-18); CALCIUM 7.5 mg/dL (8.5-10.1); CO2 34 mmol/L (21-32); CREATININE 2.1 mg/dL (0.55-1.3); GLUCOSE,RANDOM 96 mg/dL (74-106); MAGNESIUM 2.8 mg/dL (1.8-2.4); PHOSPHOROUS 3.8 mg/dL (2.5-4.9); SGOT/AST 13 U/L (15-37); TOT PROT 5.2 g/dl (6.4-8.2)
[2019-11-07 09:01] LABS: SGPT/ALT < 6 U/L (13-61)
[2019-11-07] MEDS ORDERED: PT OWN MED DRAWER 7, Y5N ONE ×2 (09:18→22:05)
[2019-11-07] MEDS: CARVEDILOL 25 MG TABLET (FP) PO SCH ×2 (09:27→22:16)
[2019-11-07] MEDS: FUROSEMIDE 40 MG TABLET (FP) PO SCH (09:28)
[2019-11-07] MEDS: RANOLAZINE E.R. 500 MG TABLET (FP) PO SCH ×2 (09:28→22:16)
[2019-11-07] MEDS: PANTOPRAZOLE 40 MG TABLET PO SCH (09:28)
[2019-11-07] MEDS: TIOTROPIUM BROMIDE 2.5 MCG (SPIRIVA) RESPIMAT INHALER IH SCH (09:39)
[2019-11-07] MEDS: BUDESONIDE/FORMETEROL FUMARATE 160/4.5 mcg INHALER IH SCH ×2 (09:39→22:17)
[2019-11-07] MEDS: amLODIPine BESYLATE 10 MG TABLET (FP) PO SCH (10:27)
--- NOTE | 2019-11-07 11:09 | PN ---
Progress Note, Physician History of Present Illness: PULMONARY ALERT,COMFORTABLE,DYSPNEA IMPROVING - Current Medication List Current Medications: Active Medications Acetaminophen (Tylenol -) 650 mg PO Q6H PRN PRN Reason: Fever Or Pain Last Admin: 11/04/19 22:24 Dose: 650 mg Documented by: Amlodipine Besylate (Norvasc -) 10 mg PO DAILY [facility] Last Admin: 11/07/19 10:27 Dose: 10 mg Documented by: Budesonide/Formoterol Fumarate (Symbicort 160/4.5mcg -) 2 puff IH BID [facility] Last Admin: 11/07/19 09:39 Dose: 2 puff Documented by: Carbidopa/Levodopa (Sinemet *Cr* 50/200 -) 1 combo PO BID [facility] Last Admin: 11/07/19 09:29 Dose: 1 combo Documented by: Carvedilol (Coreg -) 25 mg PO BID [facility] Last Admin: 11/07/19 09:27 Dose: 25 mg Documented by: Doxazosin Mesylate (Cardura -) 2 mg PO HS [facility] Last Admin: 11/06/19 21:42 Dose: 2 mg Documented by: Furosemide (Lasix -) 80 mg PO DAILY [facility] Last Admin: 11/07/19 09:28 Dose: 80 mg Documented by: Piperacillin Sod/Tazobactam (Sod 2.25 gm/ Dextrose) 50 mls @ 100 mls/hr IVPB Q8H-IV [facility]; Protocol Last Admin: 11/07/19 09:29 Dose: 100 mls/hr Documented by: Insulin Aspart (Novolog Vial Sliding Scale -) 1 vial SQ ACHS [facility]; Protocol Last Admin: 11/07/19 07:01 Dose: Not Given Documented by: Pantoprazole Sodium (Protonix -) 40 mg PO DAILY [facility] Last Admin: 11/07/19 09:28 Dose: 40 mg Documented by: Ranolazine (Ranexa -) 500 mg PO BID [facility] Last Admin: 11/07/19 09:28 Dose: 500 mg Documented by: Tetrahydrozoline HCl (Visine -) 1 drop OU BID PRN PRN Reason: DRY EYES Tiotropium [place] (Spiriva Respimat) 1 puff IH DAILY [facility] Last Admin: 11/07/19 09:39 Dose: 1 puff Documented by: - Objective Vital Signs: Vital Signs Temperature 98.2 F 11/07/19 09:36 Pulse Rate 65 11/07/19 09:36 Respiratory Rate 20 11/07/19 09:36 Blood Pressure 132/49 L 11/07/19 09:36 O2 Sat by Pulse Oximetry (%) 95 11/07/19 09:36 Constitutional: Yes: Calm, Thin Eyes: Yes: WNL HENT: Yes: WNL Neck: Yes: WNL Cardiovascular: Yes: Regular Rate and Rhythm, S1, S2 Respiratory: Yes: Diminished Gastrointestinal: Yes: Normal Bowel Sounds, Soft Extremities: Yes: WNL Edema: No Labs: CBC, BMP 11/07/19 07:31 11/07/19 07:31 INR, PTT INR 1.55 (0.83-1.09) H 11/04/19 09:49 Assessment/Plan Problem List - Problems (1) Acute on chronic diastolic (congestive) heart failure Code(s): I50.33 - ACUTE ON CHRONIC DIASTOLIC (CONGESTIVE) HEART FAILURE (2) Respiratory failure Code(s): J96.90 - RESPIRATORY FAILURE, UNSP, UNSP W HYPOXIA OR HYPERCAPNIA Qualifiers: Chronicity: acute Respiratory failure complication: hypoxia Qualified Code(s): J96.01 - Acute respiratory failure with hypoxia (3) Anemia Code(s): D64.9 - ANEMIA, UNSPECIFIED Qualifiers: Anemia type: unspecified type Qualified Code(s): D64.9 - Anemia, un specified (4) Anemia due to chronic blood loss Code(s): D50.0 - IRON DEFICIENCY ANEMIA SECONDARY TO BLOOD LOSS (CHRONIC) (5) Gastric adenoma Code(s): D13.1 - BENIGN NEOPLASM OF STOMACH (6) Gastric dysplasia Code(s): Q40.3 - CONGENITAL MALFORMATION OF STOMACH, UNSPECIFIED (7) Hypercholesterolemia Code(s): E78.00 - PURE HYPERCHOLESTEROLEMIA, UNSPECIFIED (8) PAF (paroxysmal atrial fibrillation) Code(s): I48.0 - PAROXYSMAL ATRIAL FIBRILLATION (9) Peripheral vascular disease Code(s): I73.9 - PERIPHERAL VASCULAR DISEASE, UNSPECIFIED (10) Pulmonary hypertension Code(s): I27.20 - PULMONARY HYPERTENSION, UNSPECIFIED (11) Pulmonary vascular congestion Code(s): R09.89 - OTH SYMPTOMS AND SIGNS INVOLVING THE CIRC AND RESP SYSTEMS (12) S/P CABG (coronary artery bypass graft) Code(s): Z95.1 - PRESENCE OF AORTOCORONARY BYPASS GRAFT (13) CHF (congestive heart failure) Code(s): I50.9 - HEART FAILURE, UNSPECIFIED Qualifiers: Heart failure type: unspecified Heart failure chronicity: acute on chronic Qualified Code(s): I50.9 - Heart failure, unspecified (14) DM Diabetes mellitus Code(s): E11.9 - TYPE 2 DIABETES MELLITUS WITHOUT COMPLICATIONS (15) Emphysema lung Code(s): J43.9 - EMPHYSEMA, UNSPECIFIED (16) ILD (interstitial lung disease) Code(s): J84.9 - INTERSTITIAL PULMONARY DISEASE, UNSPECIFIED (17) Renal insufficiency Code(s): N28.9 - DISORDER OF KIDNEY AND URETER, UNSPECIFIED (18) Acute hypoxemic respiratory failure Code(s): J96.01 - ACUTE RESPIRATORY FAILURE WITH HYPOXIA Assessment/Plan IMP: Low clinical suspicion of PNA PLAN: ABX per ID NIPPV as needed Supplemental O2 to maintain saturation Aspiration precautions BD TX Lasix VTE prophylaxis Daily wts DR SMITH
--- NOTE | 2019-11-07 11:46 | PN ---
Progress Note, Physician History of Present Illness: Pt seen and examined at bedside. He is awake but remains confused. - Current Medication List Current Medications: Active Medications Acetaminophen (Tylenol -) 650 mg PO Q6H PRN PRN Reason: Fever Or Pain Last Admin: 11/04/19 22:24 Dose: 650 mg Documented by: Amlodipine Besylate (Norvasc -) 10 mg PO DAILY REPLACED BY [facility] Last Admin: 11/07/19 10:27 Dose: 10 mg Documented by: Budesonide/Formoterol Fumarate (Symbicort 160/4.5mcg -) 2 puff IH BID REPLACED BY [facility] Last Admin: 11/07/19 09:39 Dose: 2 puff Documented by: Carbidopa/Levodopa (Sinemet *Cr* 50/200 -) 1 combo PO BID REPLACED BY [facility] Last Admin: 11/07/19 09:29 Dose: 1 combo Documented by: Carvedilol (Coreg -) 25 mg PO BID REPLACED BY [facility] Last Admin: 11/07/19 09:27 Dose: 25 mg Documented by: Doxazosin Mesylate (Cardura -) 2 mg PO HS REPLACED BY [facility] Last Admin: 11/06/19 21:42 Dose: 2 mg Documented by: Furosemide (Lasix -) 80 mg PO DAILY REPLACED BY [facility] Last Admin: 11/07/19 09:28 Dose: 80 mg Documented by: Piperacillin Sod/Tazobactam (Sod 2.25 gm/ Dextrose) 50 mls @ 100 mls/hr IVPB Q8H-IV REPLACED BY [facility]; Protocol Last Admin: 11/07/19 09:29 Dose: 100 mls/hr Documented by: Insulin Aspart (Novolog Vial Sliding Scale -) 1 vial SQ ACHS REPLACED BY [facility]; Protocol Last Admin: 11/07/19 07:01 Dose: Not Given Documented by: Pantoprazole Sodium (Protonix -) 40 mg PO DAILY REPLACED BY [facility] Last Admin: 11/07/19 09:28 Dose: 40 mg Documented by: Ranolazine (Ranexa -) 500 mg PO BID REPLACED BY [facility] Last Admin: 11/07/19 09:28 Dose: 500 mg Documented by: Tetrahydrozoline HCl (Visine -) 1 drop OU BID PRN PRN Reason: DRY EYES Tiotropium [place] (Spiriva Respimat) 1 puff IH DAILY REPLACED BY [facility] Last Admin: 11/07/19 09:39 Dose: 1 puff Documented by: - Objective Vital Signs: Vital Signs Temperature 98.2 F 11/07/19 09:36 Pulse Rate 65 11/07/19 09:36 Respiratory Rate 20 11/07/19 09:36 Blood Pressure 132/49 L 11/07/19 09:36 O2 Sat by Pulse Oximetry (%) 95 11/07/19 09:36 Constitutional: Yes: Calm Eyes: Yes: Conjunctiva Clear HENT: Yes: Atraumatic Cardiovascular: Yes: S1, S2 Respiratory: Yes: CTA Bilaterally, On Nasal O2 Gastrointestinal: Yes: Soft Genitourinary: Yes: WNL Musculoskeletal: Yes: WNL Edema: No Integumentary: Yes: WNL Neurological: Yes: Confusion Labs: CBC, BMP 11/07/19 07:31 11/07/19 07:31 INR, PTT INR 1.55 (0.83-1.09) H 11/04/19 09:49 Problem List - Problems (1) Acute on chronic diastolic (congestive) heart failure Code(s): I50.33 - ACUTE ON CHRONIC DIASTOLIC (CONGESTIVE) HEART FAILURE (2) ILD (interstitial lung disease) Code(s): J84.9 - INTERSTITIAL PULMONARY DISEASE, UNSPECIFIED Assessment/Plan Current Medications Generic Name Dose Route Start Last Admin Trade Name Freq PRN Reason Stop Dose Admin Acetaminophen 650 mg 11/04/19 21:46 11/04/19 22:24 Tylenol - PO 650 mg Q6H PRN Administration Fever Or Pain Amlodipine Besylate 10 mg 11/05/19 10:00 11/07/19 10:27 Norvasc - PO 10 mg DAILY RANJAN Administration Budesonide/Formoterol Fumarate 2 puff 11/05/19 22:00 11/07/19 09:39 Symbicort 160/4.5mcg - IH 2 puff BID RANJAN Administration Carbidopa/Levodopa 1 combo 11/04/19 22:00 11/07/19 09:29 Sinemet *Cr* 50/200 - PO 1 combo BID RANJAN Administration Carvedilol 25 mg 11/04/19 22:00 11/07/19 09:27 Coreg - PO 25 mg BID RANJAN Administration Doxazosin Mesylate 2 mg 11/05/19 22:00 11/06/19 21:42 Cardura - PO 2 mg HS RANJAN Administration Furosemide 80 mg 11/07/19 10:00 11/07/19 09:28 Lasix - PO 80 mg DAILY RANJAN Administration Piperacillin Sod/Tazobactam 50 mls @ 100 mls/hr 11/05/19 18:00 11/07/19 09:29 Sod 2.25 gm/ Dextrose IVPB 100 mls/hr Q8H-IV RANJAN Administration Protocol Insulin Aspart 1 vial 11/04/19 16:30 11/07/19 07:01 Novolog Vial Sliding Scale - SQ Not Given ACHS RANJAN Protocol Pantoprazole Sodium 40 mg 11/05/19 10:00 11/07/19 09:28 Protonix - PO 40 mg DAILY RANJAN Administration Ranolazine 500 mg 11/04/19 22:00 11/07/19 09:28 Ranexa - PO 500 mg BID RANJAN Administration Tetrahydrozoline HCl 1 drop 11/06/19 23:56 Visine - OU BID PRN DRY EYES Tiotropium [place] 1 puff 11/05/19 14:45 11/07/19 09:39 Spiriva Respimat IH 1 puff DAILY RANJAN Administration Impression 1. ckd 2. anemia 3. chf 4. hc hemoptysis 5. ILD 6. cad 7. htn 8. a-fib 9. cva 10. ANÍBAL Plan - quarter doper improved - cont po lasix - monitor lytes - monitor pulse ox - he remains confused - volume status improving - avoid nsiads
--- NOTE | 2019-11-07 11:48 | PN ---
Progress Note, Physician History of Present Illness: AWAKE, OOB IN CHAIR AMBULATED WITH PT MORE ALERT NO COMPLAINTS BREATHING NON LABORED ON NASAL CANNULA AFEBRILE WBC IMPROVED WNL AZOTEMIA IMPROVED SPUTUM C/S NORMAL NELSON LEGIONELLA AG (-) - Current Medication List Current Medications: Active Medications Acetaminophen (Tylenol -) 650 mg PO Q6H PRN PRN Reason: Fever Or Pain Last Admin: 11/04/19 22:24 Dose: 650 mg Documented by: Amlodipine Besylate (Norvasc -) 10 mg PO DAILY [facility] Last Admin: 11/07/19 10:27 Dose: 10 mg Documented by: Budesonide/Formoterol Fumarate (Symbicort 160/4.5mcg -) 2 puff IH BID [facility] Last Admin: 11/07/19 09:39 Dose: 2 puff Documented by: Carbidopa/Levodopa (Sinemet *Cr* 50/200 -) 1 combo PO BID [facility] Last Admin: 11/07/19 09:29 Dose: 1 combo Documented by: Carvedilol (Coreg -) 25 mg PO BID [facility] Last Admin: 11/07/19 09:27 Dose: 25 mg Documented by: Doxazosin Mesylate (Cardura -) 2 mg PO HS [facility] Last Admin: 11/06/19 21:42 Dose: 2 mg Documented by: Furosemide (Lasix -) 80 mg PO DAILY [facility] Last Admin: 11/07/19 09:28 Dose: 80 mg Documented by: Piperacillin Sod/Tazobactam (Sod 2.25 gm/ Dextrose) 50 mls @ 100 mls/hr IVPB Q8H-IV [facility]; Protocol Last Admin: 11/07/19 09:29 Dose: 100 mls/hr Documented by: Insulin Aspart (Novolog Vial Sliding Scale -) 1 vial SQ ACHS [facility]; Protocol Last Admin: 11/07/19 07:01 Dose: Not Given Documented by: Pantoprazole Sodium (Protonix -) 40 mg PO DAILY [facility] Last Admin: 11/07/19 09:28 Dose: 40 mg Documented by: Ranolazine (Ranexa -) 500 mg PO BID [facility] Last Admin: 11/07/19 09:28 Dose: 500 mg Documented by: Tetrahydrozoline HCl (Visine -) 1 drop OU BID PRN PRN Reason: DRY EYES Tiotropium [place] (Spiriva Respimat) 1 puff IH DAILY [facility] Last Admin: 11/07/19 09:39 Dose: 1 puff Documented by: - Objective Vital Signs: Vital Signs Temperature 98.2 F 11/07/19 09:36 Pulse Rate 65 11/07/19 09:36 Respiratory Rate 20 11/07/19 09:36 Blood Pressure 132/49 L 11/07/19 09:36 O2 Sat by Pulse Oximetry (%) 95 11/07/19 09:36 Constitutional: Yes: No Distress Eyes: Yes: Conjunctiva Clear Cardiovascular: Yes: Regular Rate and Rhythm, S1, S2 Respiratory: Yes: Other (CREPITATIONS, BASES) Gastrointestinal: Yes: Normal Bowel Sounds, Soft. No: Tenderness Edema: No Labs: CBC, BMP 11/07/19 07:31 11/07/19 07:31 INR, PTT INR 1.55 (0.83-1.09) H 11/04/19 09:49 Assessment/Plan R/O HCAP CHF LEUKOCYTOSIS IMPROVED AZOTEMIA IMPROVED CONTINUE EMPIRIC ZOSYN SUBSTITUTE PO ANTIBIOTICS NEXT 24HR
--- NOTE | 2019-11-07 13:45 | PN ---
Physical Exam: SUBJECTIVE: P Patient seen and examined at bedside. The patient reports some fatigue and that he has no trouble with his swallowing. He reports 4 or 5 small bowel movements yesterday that were black. OBJECTIVE: Vital Signs Period Temp Pulse Resp BP Sys/Knutson Pulse Ox Last 24 Hr 97.8 F-98.3 F 58-67 18-20 118-136/42-49 93-100 GENERAL: The patient is awake, alert, and fully oriented, in no acute distress. HEAD: Normal with no signs of trauma. EYES: PERRL, extraocular movements intact. No ptosis. ENT: Ears normal, nares patent, oropharynx clear without exudates, moist mucous membranes. Moderately large tongue. NECK: Trachea midline, full range of motion, supple. LUNGS: Breath sounds equal, clear to auscultation bilaterally, no wheezes, no crackles, no accessory muscle use. HEART: Regular rate and rhythm, S1, S2 without murmur, rub or gallop. ABDOMEN: Soft, nontender, nondistended, normoactive bowel sounds, no guarding, no rebound, no masses. EXTREMITIES: 2+ pulses, warm, well-perfused, no edema. NEUROLOGICAL: slurred speech, gait not observed. speaks Portuguese. PSYCH: Normal mood, normal affect. SKIN: Warm, dry, normal turgor, no rashes or lesions noted. Nails pale/blanched. Cap Refill > 3 seconds. Laboratory Results - last 24 hr 11/06/19 11/06/19 11/06/19 15:22 17:03 17:58 WBC 6.7 RBC 2.76 L Hgb 8.2 L Hct 25.7 L MCV 93.2 MCH 29.9 MCHC 32.0 RDW 18.6 H Plt Count 192 MPV 8.9 Absolute Neuts (auto) Neutrophils % Lymphocytes % Monocytes % Eosinophils % Basophils % Nucleated RBC % Sodium Potassium Chloride Carbon Dioxide Anion Gap BUN Creatinine Est GFR (CKD-EPI)AfAm Est GFR (CKD-EPI)NonAf POC Glucometer 150 53 Random Glucose Calcium Phosphorus Magnesium Total Bilirubin AST ALT Alkaline Phosphatase Total Protein Albumin 11/06/19 11/07/19 11/07/19 21:41 05:57 07:31 WBC 6.4 RBC 2.57 L Hgb 7.6 L Hct 23.3 L MCV 90.6 MCH 29.5 MCHC 32.6 RDW 18.6 H Plt Count 190 MPV 8.5 Absolute Neuts (auto) 5.4 Neutrophils % 84.2 H Lymphocytes % 5.0 L Monocytes % 9.2 Eosinophils % 1.1 Basophils % 0.5 Nucleated RBC % 0 Sodium Potassium Chloride Carbon Dioxide Anion Gap BUN Creatinine Est GFR (CKD-EPI)AfAm Est GFR (CKD-EPI)NonAf POC Glucometer 128 97 Random Glucose Calcium Phosphorus Magnesium Total Bilirubin AST ALT Alkaline Phosphatase Total Protein Albumin 11/07/19 11/07/19 07:31 11:52 WBC RBC Hgb Hct MCV MCH MCHC RDW Plt Count MPV Absolute Neuts (auto) Neutrophils % Lymphocytes % Monocytes % Eosinophils % Basophils % Nucleated RBC % Sodium 141 Potassium 4.2 Chloride 102 Carbon Dioxide 34 H Anion Gap 6 L BUN 45.2 H Creatinine 2.1 H Est GFR (CKD-EPI)AfAm 32.75 Est GFR (CKD-EPI)NonAf 28.26 POC Glucometer 180 Random Glucose 96 Calcium 7.5 L Phosphorus 3.8 Magnesium 2.8 H Total Bilirubin 0.6 AST 13 L ALT < 6 L Alkaline Phosphatase 57 Total Protein 5.2 L Albumin 2.5 L Active Medications Generic Name Dose Route Start Last Admin Trade Name Freq PRN Reason Stop Dose Admin Acetaminophen 650 mg 11/04/19 21:46 11/04/19 22:24 Tylenol - PO 650 mg Q6H PRN Administration Fever Or Pain Amlodipine Besylate 10 mg 11/05/19 10:00 11/07/19 10:27 Norvasc - PO 10 mg DAILY RANJAN Administration Budesonide/Formoterol Fumarate 2 puff 11/05/19 22:00 11/07/19 09:39 Symbicort 160/4.5mcg - IH 2 puff BID RANJAN Administration Carbidopa/Levodopa 1 combo 11/04/19 22:00 11/07/19 09:29 Sinemet *Cr* 50/200 - PO 1 combo BID RANJAN Administration Carvedilol 25 mg 11/04/19 22:00 11/07/19 09:27 Coreg - PO 25 mg BID RANJAN Administration Doxazosin Mesylate 2 mg 11/05/19 22:00 11/06/19 21:42 Cardura - PO 2 mg HS RANJAN Administration Furosemide 80 mg 11/07/19 10:00 11/07/19 09:28 Lasix - PO 80 mg DAILY RANJAN Administration Piperacillin Sod/Tazobactam 50 mls @ 100 mls/hr 11/05/19 18:00 11/07/19 09:29 Sod 2.25 gm/ Dextrose IVPB 100 mls/hr Q8H-IV RANJAN Administration Protocol Insulin Aspart 1 vial 11/04/19 16:30 11/07/19 12:12 Novolog Vial Sliding Scale - SQ 2 units ACHS RANJAN Administration Protocol Pantoprazole Sodium 40 mg 11/05/19 10:00 11/07/19 09:28 Protonix - PO 40 mg DAILY RANJAN Administration Ranolazine 500 mg 11/04/19 22:00 11/07/19 09:28 Ranexa - PO 500 mg BID RANJAN Administration Tetrahydrozoline HCl 1 drop 11/06/19 23:56 Visine - OU BID PRN DRY EYES Tiotropium [place] 1 puff 11/05/19 14:45 11/07/19 09:39 Spiriva Respimat IH 1 puff DAILY RANJAN Administration ASSESSMENT/PLAN: 84 year old male patient with past medical history that includes COPD on 2 lpm, Diastolic CHF, AFib off Eliquis, GERD, HTN, HLD, Parkinson's Disease, CAD with CABGx2, Prostate Ca on RTx, Gastric Adenoma resected around 2015, and ILD, who presented to the ED with shortness of breath and hypoxia. 1. Normocytic Anemia - Hgb 7.6 - MCV 90.6 - FOBT showed trace blood - Monitoring the patient's Hgb - GI consulted due to Hgb trending down from 9.0 three days ago to 7.6 today and trace blood on FOBT 2. Hypoxia secondary to COPD exacerbation vs CHF exacerbation vs PNA vs aspiration PNA - resolved - PMHx of COPD on 2 lpm home O2 - PMHx of diastolic CHF - CXR showed congestive changes and a possible infiltrate - Physical exam shows a large tongue with slurring of speech - BNP was 13,375 on admission - CXR shows that the patient has a large heart - 100% oxygen saturation on 2 lpm - IV Zosyn 2.25gm Day 3 - Lasix 3. Possible ANÍBAL on CKD - resolved - Creatinine 2.1 - Baseline Creatinine appears to be 2.1 to 2.7 based on previous admissions 4. Leukocytosis secondary to possible PNA vs aspiration PNA - resolved - WBC 6.4 - afebrile at 98.2F - CXR showed congestive changes and a possible infiltrate - IV Zosyn 2.25gm Day 3 5. HTN - Coreg # FEN - Monitoring Electrolytes. Sodium Controlled Diet. DVT PPx - SCDs bilaterally Visit type - Emergency Visit Emergency Visit: Yes ED Registration Date: 11/04/19 Care time: The patient presented to the Emergency Department on the above date and was hospitalized for further evaluation of their emergent condition. - New Patient This patient is new to me today: No - Critical Care Critical Care patient: No - Discharge Referral Referred to [facility] Med P.C.: No - Medication Review Med list reviewed for High Risk Meds patients 65 and older: Yes ATTENDING PHYSICIAN STATEMENT I saw and evaluated the patient. I reviewed the resident's note and discussed the case with the resident. I agree with the resident's findings and plan as documented. SUBJECTIVE: OBJECTIVE: ASSESSMENT AND PLAN:
--- NOTE | 2019-11-07 14:59 | PN ---
Teaching Attending Note Name of Resident: Baljit Strong ATTENDING PHYSICIAN STATEMENT I saw and evaluated the patient. I reviewed the resident's note and discussed the case with the resident. I agree with the resident's findings and plan as documented. SUBJECTIVE: Pt has no complaints today Difficult to understand due to slurred speech OBJECTIVE: Vital Signs Period Temp Pulse Resp BP Sys/Knutson Pulse Ox Last 24 Hr 97.8 F-98.4 F 59-67 18-20 118-136/42-49 93-100 GENERAL: The patient is awake, alert, and fully oriented, in no acute distress. HEAD: Normal with no signs of trauma. EYES: PERRL, extraocular movements intact. No ptosis. ENT: Ears normal, nares patent, oropharynx clear without exudates, moist mucous membranes. Large tongue. NECK: Trachea midline, full range of motion, supple. LUNGS: Breath sounds equal, clear to auscultation bilaterally, no wheezes, no crackles, no accessory muscle use. HEART: Regular rate and rhythm, S1, S2 without murmur, rub or gallop. ABDOMEN: Soft, nontender, nondistended, normoactive bowel sounds, no guarding, no rebound, no masses. EXTREMITIES: 2+ pulses, warm, well-perfused, no edema. NEUROLOGICAL: slurred speech, gait not observed. speaks Turkish. PSYCH: Normal mood, normal affect. SKIN: Warm, dry, normal turgor, no rashes or lesions noted. ASSESSMENT AND PLAN: 84 y/o M with Hx COPD 2L home, CHF, HTN, HLD, CKD, CAD with 2 vessel disease and intervention, Prostate Ca on radiation AFIB off AC due to high risk of bleed , Parkinson's Disease, GERD, Gastric adenoma, ILD who presents with shortness of breath and hypoxia SOB/hypoxia: Now resolved patient clinically euvolemic plan to complete 7 day of abx for possible aspiration PNA appreciate S/S recs Pt worked with PT this morning, awaiting recs Anemia: Concern for GI blood Loss Continue PPI Gi Consultation for assistance in management
--- NOTE | 2019-11-07 15:56 | PN ---
Progress Note (short form) - Note Progress Note: GI CONSULT DICTATED
[2019-11-07] MEDS: TETRAHYDROZOLINE HCL EYE DROPS OU PRN (16:09)
--- NOTE | 2019-11-07 16:21 | CONS ---
GASTROINTESTINAL CONSULTATION DATE OF CONSULTATION: DATE OF DICTATION: 11/07/2019 HISTORY: Patient is an 84-year-old man with a past medical history of COPD, CHF, hypertension, hyperlipidemia, CKD, CAD, prostate cancer on radiation therapy, atrial fibrillation off anticoagulation, Parkinson disease, reflux, gastric adenoma in the past, ILD, who was admitted with complaints of dyspnea and hypoxia. He is presently being treated for CHF and pneumonia. This consultation is for anemia. As per the patient and family member at the bedside, there has been no report of any melena, hematochezia, nausea, vomiting or hematemesis. Patient also denies abdominal pain. They were unclear regarding his past endoscopy. As per the record, in 2016 he had an upper endoscopy done by Dr. Gardner which revealed a 3 x 3 cm mass in the gastric body. Pathology was consistent with an adenoma and dysplasia. Unclear if he followed up with Dr. Gardner after this or had any further endoscopic evaluation. Our chart reveals none. PAST MEDICAL & SURGICAL HISTORY: As listed in the HPI. ALLERGIES: No known drug allergies. SOCIAL HISTORY: No drinking, smoking or drug abuse. FAMILY HISTORY: No history of GI or gynecological malignancy. HOME MEDICATIONS: Norvasc, question of Eliquis, steroid, Sinemet, carvedilol, , Protonix, Ranexa and Flomax. PHYSICAL EXAMINATION: Vital Signs: Temperature 98, pulse 60, blood pressure 130/47, respiratory rate 12, oxygen saturation 95% on 2 L. General: No acute distress. HEENT: Anicteric sclerae. Cardiovascular: S1, S2, regular rate and rhythm. Lungs: Bilaterally clear to auscultation. Abdomen: Soft and nontender. Extremities: With some pedal edema. LABORATORIES: White blood cell count on admission was 17, presently is 6.4. Hemoglobin 7.6 and hematocrit 23; on admission hemoglobin was over 9. MCV 90, platelet count 190, INR 1.5. Sodium 141, potassium 4.2, BUN 45 and creatinine 2, glucose 96, AST 13, ALT less than 6, total bilirubin 0.6. Urine: Glucose 2+. Stool for occult blood was trace positive and COVID-19 was not detected. He had chest x-ray which revealed an infiltrate. No abdominal imaging was done during this consultation. IMPRESSION: Anemia and a history of a gastric adenoma with dysplasia in 2016. I suspect he might have oozing from this lesion which may have advanced over the past couple of years and also given the fact that he is on anticoagulation worsening the present situation regarding blood loss. RECOMMENDATION: He needs to be optimized from a cardiopulmonary perspective prior to any endoscopic evaluations. He would benefit from a diagnostic upper endoscopy as well as potential endoscopic ultrasound to further evaluate the lesion in the stomach. If he has not had a colonoscopy, that should also be done. This can be done as an outpatient again once he is optimized from a cardiopulmonary perspective. For now would continue him on Protonix 40 mg IV daily. Diet can be advanced as tolerated. Treatment for CHF and pneumonia as per the primary medical team. DO NICK PERKINS/[id number] MTDD
[2019-11-07] MEDS ORDERED: PANTOPRAZOLE SODIUM 40 MG in SODIUM CHLORIDE 100 ML IVPB SCH (22:00)
[2019-11-07] MEDS: PANTOPRAZOLE SODIUM 40 MG VIAL IVPUSH SCH (22:16)
[2019-11-07] MEDS: DOXAZOSIN MESYLATE 2 MG TABLET PO SCH (22:16)
[2019-11-08] MEDS ORDERED: PIPERACILLIN/TAZOBACTAM 2.25 GM VIAL IVPB ONE ×3 (03:30→17:09)
[2019-11-08] MEDS ORDERED: DEXTROSE 5%-WATER - 50 ML IVPB ONE ×3 (03:30→17:09)
[2019-11-08] MEDS: PIPERACILLIN/TAZOB 2.25 GM 2.25 GM in DEXTROSE 5%-WATER - 50 ML IVPB SCH ×3 (03:57→17:13)
[2019-11-08] MEDS: INSULIN SLIDING SCALE (NOVOLOG) 1 VIAL SQ SCH ×4 (06:15→21:57)
[2019-11-08 07:24] LABS: HEMATOCRIT 26.8 % (35.4-49); HEMOGLOBIN 8.9 GM/dL (11.7-16.9); MCH 30.3 pg (25.7-33.7); MCHC 33.3 g/dl (32.0-35.9); MEAN CELL VOLUME 90.8 fl (80-96); MEAN PLT VOLUME 8.5 fl (7.5-11.1); PLATELET COUNT 199 K/MM3 (134-434); RBC 2.95 M/mm3 (4.00-5.60); RDW 17.7 % (11.9-15.9); WHITE BLOOD COUNT 7.1 K/mm3 (4.0-10.0)
[2019-11-08 08:12] LABS: ALBUMIN 2.5 g/dl (3.4-5.0); ALK PHOS 52 U/L (45-117); ANION GAP 5 MMOL/L (8-16); BILIRUBIN,TOTAL 1.6 mg/dL (0.2-1); BLOOD UREA NITROGEN 40.2 mg/dL (7-18); CALCIUM 7.6 mg/dL (8.5-10.1); CHLORIDE 100 mmol/L (98-107); CO2 35 mmol/L (21-32); CREATININE 2.1 mg/dL (0.55-1.3); GLUCOSE,RANDOM 86 mg/dL (74-106); MAGNESIUM 2.5 mg/dL (1.8-2.4); POTASSIUM 4.6 mmol/L (3.5-5.1); SGOT/AST 15 U/L (15-37); SGPT/ALT < 6 U/L (13-61); SODIUM 140 mmol/L (136-145); TOT PROT 5.3 g/dl (6.4-8.2)
--- NOTE | 2019-11-08 10:16 | PN ---
Progress Note, Physician History of Present Illness: pulmonary alert,-resp distress,comfortable - Current Medication List Current Medications: Active Medications Acetaminophen (Tylenol -) 650 mg PO Q6H PRN PRN Reason: Fever Or Pain Last Admin: 11/04/19 22:24 Dose: 650 mg Documented by: Amlodipine Besylate (Norvasc -) 10 mg PO DAILY [facility] Last Admin: 11/07/19 10:27 Dose: 10 mg Documented by: Budesonide/Formoterol Fumarate (Symbicort 160/4.5mcg -) 2 puff IH BID [facility] Last Admin: 11/07/19 22:17 Dose: 2 puff Documented by: Carbidopa/Levodopa (Sinemet *Cr* 50/200 -) 1 combo PO BID [facility] Last Admin: 11/07/19 22:16 Dose: 1 combo Documented by: Carvedilol (Coreg -) 25 mg PO BID [facility] Last Admin: 11/07/19 22:16 Dose: 25 mg Documented by: Doxazosin Mesylate (Cardura -) 2 mg PO HS [facility] Last Admin: 11/07/19 22:16 Dose: 2 mg Documented by: Furosemide (Lasix -) 80 mg PO DAILY [facility] Last Admin: 11/07/19 09:28 Dose: 80 mg Documented by: Piperacillin Sod/Tazobactam (Sod 2.25 gm/ Dextrose) 50 mls @ 100 mls/hr IVPB Q8H-IV [facility]; Protocol Last Admin: 11/08/19 03:57 Dose: 100 mls/hr Documented by: Insulin Aspart (Novolog Vial Sliding Scale -) 1 vial SQ ACHS [facility]; Protocol Last Admin: 11/08/19 06:15 Dose: Not Given Documented by: Pantoprazole Sodium (Protonix Iv) 40 mg IVPUSH BID [facility] Last Admin: 11/07/19 22:16 Dose: 40 mg Documented by: Ranolazine (Ranexa -) 500 mg PO BID [facility] Last Admin: 11/07/19 22:16 Dose: 500 mg Documented by: Tetrahydrozoline HCl (Visine -) 1 drop OU BID PRN PRN Reason: DRY EYES Last Admin: 11/07/19 16:09 Dose: 1 drop Documented by: Tiotropium [place] (Spiriva Respimat) 1 puff IH DAILY [facility] Last Admin: 11/07/19 09:39 Dose: 1 puff Documented by: - Objective Vital Signs: Vital Signs Temperature 98.6 F 11/08/19 06:00 Pulse Rate 76 11/08/19 06:00 Respiratory Rate 18 11/08/19 06:00 Blood Pressure 126/63 11/08/19 06:00 O2 Sat by Pulse Oximetry (%) 96 11/08/19 06:00 Constitutional: Yes: Calm, Thin Eyes: Yes: WNL HENT: Yes: WNL Neck: Yes: WNL Cardiovascular: Yes: Regular Rate and Rhythm, S1, S2 Respiratory: Yes: Diminished Gastrointestinal: Yes: Normal Bowel Sounds, Soft Extremities: Yes: WNL Edema: No Labs: CBC, BMP 11/08/19 06:16 11/08/19 06:16 INR, PTT INR 1.55 (0.83-1.09) H 11/04/19 09:49 Assessment/Plan Problem List - Problems (1) Acute on chronic diastolic (congestive) heart failure Code(s): I50.33 - ACUTE ON CHRONIC DIASTOLIC (CONGESTIVE) HEART FAILURE (2) Respiratory failure Code(s): J96.90 - RESPIRATORY FAILURE, UNSP, UNSP W HYPOXIA OR HYPERCAPNIA Qualifiers: Chronicity: acute Respiratory failure complication: hypoxia Qualified Code(s): J96.01 - Acute respiratory failure with hypoxia (3) Anemia Code(s): D64.9 - ANEMIA, UNSPECIFIED Qualifiers: Anemia type: unspecified type Qualified Code(s): D64.9 - Anemia, unspecified (4) Anemia due to chronic blood loss Code(s): D50.0 - IRON DEFICIENCY ANEMIA SECONDARY TO BLOOD LOSS (CHRONIC) (5) Gastric adenoma Code(s): D13.1 - BENIGN NEOPLASM OF STOMACH (6) Gastric dysplasia Code(s): Q40.3 - CONGENITAL MALFORMATION OF STOMACH, UNSPECIFIED (7) Hypercholesterolemia Code(s): E78.00 - PURE HYPERCHOLESTEROLEMIA, UNSPECIFIED (8) PAF (paroxysmal atrial fibrillation) Code(s): I48.0 - PAROXYSMAL ATRIAL FIBRILLATION (9) Peripheral vascular disease Code(s): I73.9 - PERIPHERAL VASCULAR DISEASE, UNSPECIFIED (10) Pulmonary hypertension Code(s): I27.20 - PULMONARY HYPERTENSION, UNSPECIFIED (11) Pulmonary vascular congestion Code(s): R09.89 - OTH SYMPTOMS AND SIGNS INVOLVING THE CIRC AND RESP SYSTEMS (12) S/P CABG (coronary artery bypass graft) Code(s): Z95.1 - PRESENCE OF AORTOCORONARY BYPASS GRAFT (13) CHF (congestive heart failure) Code(s): I50.9 - HEART FAILURE, UNSPECIFIED Qualifiers: Heart failure type: unspecified Heart failure chronicity: acute on chronic Qualified Code(s): I50.9 - Heart failure, unspecified (14) DM Diabetes mellitus Code(s): E11.9 - TYPE 2 DIABETES MELLITUS WITHOUT COMPLICATIONS (15) Emphysema lung Code(s): J43.9 - EMPHYSEMA, UNSPECIFIED (16) ILD (interstitial lung disease) Code(s): J84.9 - INTERSTITIAL PULMONARY DISEASE, UNSPECIFIED (17) Renal insufficiency Code(s): N28.9 - DISORDER OF KIDNEY AND URETER, UNSPECIFIED (18) Acute hypoxemic respiratory failure Code(s): J96.01 - ACUTE RESPIRATORY FAILURE WITH HYPOXIA Assessment/Plan IMP: Low clinical suspicion of PNA PLAN: ABX per ID NIPPV as needed Supplemental O2 to maintain saturation Aspiration precautions BD TX Lasix VTE prophylaxis Daily wts DR SMITH
[2019-11-08] MEDS ORDERED: PT OWN MED DRAWER 7, Y5N ONE ×2 (11:28→21:31)
[2019-11-08] MEDS: FUROSEMIDE 40 MG TABLET (FP) PO SCH (11:31)
[2019-11-08] MEDS: CARVEDILOL 25 MG TABLET (FP) PO SCH ×2 (11:32→21:56)
[2019-11-08] MEDS: PANTOPRAZOLE SODIUM 40 MG VIAL IVPUSH SCH ×2 (11:32→21:56)
[2019-11-08] MEDS: amLODIPine BESYLATE 10 MG TABLET (FP) PO SCH (11:32)
[2019-11-08] MEDS: RANOLAZINE E.R. 500 MG TABLET (FP) PO SCH ×2 (11:33→21:56)
[2019-11-08] MEDS: TIOTROPIUM BROMIDE 2.5 MCG (SPIRIVA) RESPIMAT INHALER IH SCH (11:34)
[2019-11-08] MEDS: BUDESONIDE/FORMETEROL FUMARATE 160/4.5 mcg INHALER IH SCH ×2 (11:34→21:56)
--- NOTE | 2019-11-08 11:50 | PN ---
Progress Note (short form) - Note Progress Note: Please review Dr. Hernandez's consultation from yesterday as well as Dr. Gilman's detailed consultation from 10/16/19 for recommendations regarding further GI work-up.
--- NOTE | 2019-11-08 13:48 | PN ---
Physical Exam: SUBJECTIVE: Patient seen and examined at bedside. The patient reports some fatigue, but denies fever/chills, diarrhea, constipation, nausea, and shortness of breath. The patient also has some erythema in his inguinal folds and asked if he can have a stronger medication than the zinc cream for the erythematous rash. OBJECTIVE: Vital Signs Period Temp Pulse Resp BP Sys/Knutson Pulse Ox Last 24 Hr 98.2 F-98.7 F 59-76 18-20 123-147/46-63 91-99 GENERAL: The patient is awake, alert, and fully oriented, in no acute distress. HEAD: Normal with no signs of trauma. EYES: PERRL, extraocular movements intact. No ptosis. ENT: Ears normal, nares patent, oropharynx clear without exudates, moist mucous membranes. Moderately large tongue. NECK: Trachea midline, full range of motion, supple. LUNGS: Breath sounds equal, clear to auscultation bilaterally, no wheezes, no crackles, no accessory muscle use. HEART: Regular rate and rhythm, S1, S2 without murmur, rub or gallop. ABDOMEN: Soft, nontender, nondistended, normoactive bowel sounds, no guarding, no rebound, no masses. EXTREMITIES: 2+ pulses, warm, well-perfused, no edema. NEUROLOGICAL: slurred speech, gait not observed. speaks Upper Sorbian. PSYCH: Normal mood, normal affect. SKIN: Warm, dry, normal turgor. Nails pale/blanched. Erythematous rash in the inguinal folds with some white zinc cream previously spread over the rash. Laboratory Results - last 24 hr 11/07/19 11/07/19 11/08/19 17:22 19:00 06:16 WBC 7.1 RBC 2.95 L Hgb 8.9 L Hct 26.8 L D MCV 90.8 MCH 30.3 MCHC 33.3 RDW 17.7 H Plt Count 199 MPV 8.5 Sodium Potassium Chloride Carbon Dioxide Anion Gap BUN Creatinine Est GFR (CKD-EPI)AfAm Est GFR (CKD-EPI)NonAf POC Glucometer 174 Random Glucose Calcium Phosphorus Magnesium Total Bilirubin AST ALT Alkaline Phosphatase Total Protein Albumin Blood Type O NEGATIVE Antibody Screen Negative Crossmatch See Detail 11/08/19 11/08/19 06:16 11:43 WBC RBC Hgb Hct MCV MCH MCHC RDW Plt Count MPV Sodium 140 Potassium 4.6 Chloride 100 Carbon Dioxide 35 H Anion Gap 5 L BUN 40.2 H Creatinine 2.1 H Est GFR (CKD-EPI)AfAm 32.75 Est GFR (CKD-EPI)NonAf 28.26 POC Glucometer 167 Random Glucose 86 Calcium 7.6 L Phosphorus 3.0 Magnesium 2.5 H Total Bilirubin 1.6 H AST 15 ALT < 6 L Alkaline Phosphatase 52 Total Protein 5.3 L Albumin 2.5 L Blood Type Antibody Screen Crossmatch Active Medications Generic Name Dose Route Start Last Admin Trade Name Freq PRN Reason Stop Dose Admin Acetaminophen 650 mg 11/04/19 21:46 11/04/19 22:24 Tylenol - PO 650 mg Q6H PRN Administration Fever Or Pain Amlodipine Besylate 10 mg 11/05/19 10:00 11/08/19 11:32 Norvasc - PO 10 mg DAILY RANJAN Administration Budesonide/Formoterol Fumarate 2 puff 11/05/19 22:00 11/08/19 11:34 Symbicort 160/4.5mcg - IH 2 puff BID RANJAN Administration Carbidopa/Levodopa 1 combo 11/04/19 22:00 11/08/19 11:35 Sinemet *Cr* 50/200 - PO 1 combo BID RANJAN Administration Carvedilol 25 mg 11/04/19 22:00 11/08/19 11:32 Coreg - PO 25 mg BID RANJAN Administration Doxazosin Mesylate 2 mg 11/05/19 22:00 11/07/19 22:16 Cardura - PO 2 mg HS RAJNAN Administration Furosemide 80 mg 11/07/19 10:00 11/08/19 11:31 Lasix - PO 80 mg DAILY RANJAN Administration Piperacillin Sod/Tazobactam 50 mls @ 100 mls/hr 11/05/19 18:00 11/08/19 11:34 Sod 2.25 gm/ Dextrose IVPB 100 mls/hr Q8H-IV RANJAN Administration Protocol Insulin Aspart 1 vial 11/04/19 16:30 11/08/19 11:48 Novolog Vial Sliding Scale - SQ 2 units ACHS RANJAN Administration Protocol Pantoprazole Sodium 40 mg 11/07/19 22:00 11/08/19 11:32 Protonix Iv IVPUSH 40 mg BID RANJAN Administration Ranolazine 500 mg 11/04/19 22:00 11/08/19 11:33 Ranexa - PO 500 mg BID RANJAN Administration Tetrahydrozoline HCl 1 drop 11/06/19 23:56 11/07/19 16:09 Visine - OU 1 drop BID PRN Administration DRY EYES Tiotropium [place] 1 puff 11/05/19 14:45 11/08/19 11:34 Spiriva Respimat IH 1 puff DAILY RANJAN Administration ASSESSMENT/PLAN: 84 year old male patient with past medical history that includes COPD on 2 lpm, Diastolic CHF, AFib off Eliquis, GERD, HTN, HLD, Parkinson's Disease, CAD with CABGx2, Prostate Ca on RTx, Gastric Adenoma resected around 2015, and ILD, who presented to the ED with shortness of breath and hypoxia. 1. Normocytic Anemia - Hgb 7.6 - MCV 90.6 - FOBT showed trace blood - Monitoring the patient's Hgb - GI consulted due to Hgb trending down from 9.0 three days ago to 7.6 today and trace blood on FOBT - EGD recommended by GI - The patient is medically optimized from a cardiopulmonary stand point for the low risk procedure of a diagnostic upper endoscopy as well as potential endoscopic ultrasound. 2. Erythematous rash secondary to urinary incontinence - The patient is wearing a diaper for the urinary incontinence 3. Hypoxia secondary to COPD exacerbation vs CHF exacerbation vs PNA vs aspiration PNA - resolved - PMHx of COPD on 2 lpm home O2 - PMHx of diastolic CHF - CXR showed congestive changes and a possible infiltrate - Physical exam shows a large tongue with slurring of speech - BNP was 13,375 on admission - CXR shows that the patient has a large heart - 96% oxygen saturation on 2 lpm - IV Zosyn 2.25gm Day 4 - Lasix 4. Possible ANÍBAL on CKD - resolved - Creatinine 2.1 - Baseline Creatinine appears to be 2.1 to 2.7 based on previous admissions 5. Leukocytosis secondary to possible PNA vs aspiration PNA - resolved - WBC 7.1 - afebrile at 98.6F - CXR showed congestive changes and a possible infiltrate - IV Zosyn 2.25gm Day 4 6. HTN - Coreg # FEN - Monitoring Electrolytes. Sodium Controlled Diet. DVT PPx - SCDs bilaterally Visit type - Emergency Visit Emergency Visit: Yes ED Registration Date: 11/04/19 Care time: The patient presented to the Emergency Department on the above date and was hospitalized for further evaluation of their emergent condition. - New Patient This patient is new to me today: No - Critical Care Critical Care patient: No - Discharge Referral Referred to [facility] No - Medication Review Med list reviewed for High Risk Meds patients 65 and older: Yes ATTENDING PHYSICIAN STATEMENT I saw and evaluated the patient. I reviewed the resident's note and discussed the case with the resident. I agree with the resident's findings and plan as documented. SUBJECTIVE: OBJECTIVE: ASSESSMENT AND PLAN:
--- NOTE | 2019-11-08 14:18 | PN ---
Progress Note, Physician History of Present Illness: AWAKE IN BED NO COMPLAINTS DENIES CP/SOB BREATHING NON LABORED ON NASAL CANNULA AFEBRILE WBC IMPROVED WNL AZOTEMIA IMPROVED SPUTUM C/S NORMAL NELSON LEGIONELLA AG (-) - Current Medication List Current Medications: Active Medications Acetaminophen (Tylenol -) 650 mg PO Q6H PRN PRN Reason: Fever Or Pain Last Admin: 11/04/19 22:24 Dose: 650 mg Documented by: Amlodipine Besylate (Norvasc -) 10 mg PO DAILY [facility] Last Admin: 11/08/19 11:32 Dose: 10 mg Documented by: Budesonide/Formoterol Fumarate (Symbicort 160/4.5mcg -) 2 puff IH BID [facility] Last Admin: 11/08/19 11:34 Dose: 2 puff Documented by: Carbidopa/Levodopa (Sinemet *Cr* 50/200 -) 1 combo PO BID [facility] Last Admin: 11/08/19 11:35 Dose: 1 combo Documented by: Carvedilol (Coreg -) 25 mg PO BID [facility] Last Admin: 11/08/19 11:32 Dose: 25 mg Documented by: Doxazosin Mesylate (Cardura -) 2 mg PO HS [facility] Last Admin: 11/07/19 22:16 Dose: 2 mg Documented by: Furosemide (Lasix -) 80 mg PO DAILY [facility] Last Admin: 11/08/19 11:31 Dose: 80 mg Documented by: Piperacillin Sod/Tazobactam (Sod 2.25 gm/ Dextrose) 50 mls @ 100 mls/hr IVPB Q8H-IV [facility]; Protocol Last Admin: 11/08/19 11:34 Dose: 100 mls/hr Documented by: Insulin Aspart (Novolog Vial Sliding Scale -) 1 vial SQ ACHS [facility]; Protocol Last Admin: 11/08/19 11:48 Dose: 2 units Documented by: Pantoprazole Sodium (Protonix Iv) 40 mg IVPUSH BID [facility] Last Admin: 11/08/19 11:32 Dose: 40 mg Documented by: Ranolazine (Ranexa -) 500 mg PO BID [facility] Last Admin: 11/08/19 11:33 Dose: 500 mg Documented by: Tetrahydrozoline HCl (Visine -) 1 drop OU BID PRN PRN Reason: DRY EYES Last Admin: 11/07/19 16:09 Dose: 1 drop Documented by: Tiotropium [place] (Spiriva Respimat) 1 puff IH DAILY RANJAN Last Admin: 11/08/19 11:34 Dose: 1 puff Documented by: Zinc Oxide (Desitin Diaper Rash Oint -) 1 applic TP ASDIR PRN PRN Reason: HYGEINE - Objective Vital Signs: Vital Signs Temperature 98.6 F 11/08/19 10:00 Pulse Rate 64 11/08/19 10:00 Respiratory Rate 18 11/08/19 10:00 Blood Pressure 147/54 L 11/08/19 10:00 O2 Sat by Pulse Oximetry (%) 96 11/08/19 13:04 Constitutional: Yes: No Distress Cardiovascular: Yes: Regular Rate and Rhythm, S1, S2 Respiratory: Yes: Other (FEW CREPITATIONS, BASES) Gastrointestinal: Yes: Normal Bowel Sounds, Soft. No: Tenderness Edema: No Labs: CBC, BMP 11/08/19 06:16 11/08/19 06:16 INR, PTT INR 1.55 (0.83-1.09) H 11/04/19 09:49 Assessment/Plan R/O HCAP CHF LEUKOCYTOSIS IMPROVED AZOTEMIA IMPROVED SUBSTITUTE PO AUGMENTIN 500MG BID X 3D
--- NOTE | 2019-11-08 14:21 | PN ---
Progress Note, Physician History of Present Illness: Pt seen and examined at bedside. He is awake and appears comfortable. He denies shortness of breath at rest. - Current Medication List Current Medications: Active Medications Acetaminophen (Tylenol -) 650 mg PO Q6H PRN PRN Reason: Fever Or Pain Last Admin: 11/04/19 22:24 Dose: 650 mg Documented by: Amlodipine Besylate (Norvasc -) 10 mg PO DAILY [facility] Last Admin: 11/08/19 11:32 Dose: 10 mg Documented by: Budesonide/Formoterol Fumarate (Symbicort 160/4.5mcg -) 2 puff IH BID [facility] Last Admin: 11/08/19 11:34 Dose: 2 puff Documented by: Carbidopa/Levodopa (Sinemet *Cr* 50/200 -) 1 combo PO BID [facility] Last Admin: 11/08/19 11:35 Dose: 1 combo Documented by: Carvedilol (Coreg -) 25 mg PO BID [facility] Last Admin: 11/08/19 11:32 Dose: 25 mg Documented by: Doxazosin Mesylate (Cardura -) 2 mg PO HS [facility] Last Admin: 11/07/19 22:16 Dose: 2 mg Documented by: Furosemide (Lasix -) 80 mg PO DAILY [facility] Last Admin: 11/08/19 11:31 Dose: 80 mg Documented by: Piperacillin Sod/Tazobactam (Sod 2.25 gm/ Dextrose) 50 mls @ 100 mls/hr IVPB Q8H-IV [facility]; Protocol Last Admin: 11/08/19 11:34 Dose: 100 mls/hr Documented by: Insulin Aspart (Novolog Vial Sliding Scale -) 1 vial SQ ACHS [facility]; Protocol Last Admin: 11/08/19 11:48 Dose: 2 units Documented by: Pantoprazole Sodium (Protonix Iv) 40 mg IVPUSH BID [facility] Last Admin: 11/08/19 11:32 Dose: 40 mg Documented by: Ranolazine (Ranexa -) 500 mg PO BID [facility] Last Admin: 11/08/19 11:33 Dose: 500 mg Documented by: Tetrahydrozoline HCl (Visine -) 1 drop OU BID PRN PRN Reason: DRY EYES Last Admin: 11/07/19 16:09 Dose: 1 drop Documented by: Tiotropium [place] (Spiriva Respimat) 1 puff IH DAILY [facility] Last Admin: 11/08/19 11:34 Dose: 1 puff Documented by: Zinc Oxide (Desitin Diaper Rash Oint -) 1 applic TP ASDIR PRN PRN Reason: HYGEINE - Objective Vital Signs: Vital Signs Temperature 98.9 F 11/08/19 14:15 Pulse Rate 61 11/08/19 14:15 Respiratory Rate 18 11/08/19 14:15 Blood Pressure 134/56 L 11/08/19 14:15 O2 Sat by Pulse Oximetry (%) 96 11/08/19 13:04 Constitutional: Yes: Calm Eyes: Yes: Conjunctiva Clear HENT: Yes: Atraumatic Neck: Yes: Supple Cardiovascular: Yes: S1, S2 Respiratory: Yes: On Nasal O2 Gastrointestinal: Yes: Normal Bowel Sounds, Soft Genitourinary: Yes: WNL Musculoskeletal: Yes: WNL Edema: No Integumentary: Yes: WNL Neurological: Yes: Confusion Labs: CBC, BMP 11/08/19 06:16 11/08/19 06:16 INR, PTT INR 1.55 (0.83-1.09) H 11/04/19 09:49 Problem List - Problems (1) Acute on chronic diastolic (congestive) heart failure Code(s): I50.33 - ACUTE ON CHRONIC DIASTOLIC (CONGESTIVE) HEART FAILURE (2) ILD (interstitial lung disease) Code(s): J84.9 - INTERSTITIAL PULMONARY DISEASE, UNSPECIFIED Assessment/Plan Current Medications Generic Name Dose Route Start Last Admin Trade Name Freq PRN Reason Stop Dose Admin Acetaminophen 650 mg 11/04/19 21:46 11/04/19 22:24 Tylenol - PO 650 mg Q6H PRN Administration Fever Or Pain Amlodipine Besylate 10 mg 11/05/19 10:00 11/08/19 11:32 Norvasc - PO 10 mg DAILY RANJAN Administration Budesonide/Formoterol Fumarate 2 puff 11/05/19 22:00 11/08/19 11:34 Symbicort 160/4.5mcg - IH 2 puff BID RANJAN Administration Carbidopa/Levodopa 1 combo 11/04/19 22:00 11/08/19 11:35 Sinemet *Cr* 50/200 - PO 1 combo BID RANJAN Administration Carvedilol 25 mg 11/04/19 22:00 11/08/19 11:32 Coreg - PO 25 mg BID RANJAN Administration Doxazosin Mesylate 2 mg 11/05/19 22:00 11/07/19 22:16 Cardura - PO 2 mg HS RANJAN Administration Furosemide 80 mg 11/07/19 10:00 11/08/19 11:31 Lasix - PO 80 mg DAILY RANJAN Administration Piperacillin Sod/Tazobactam 50 mls @ 100 mls/hr 11/05/19 18:00 11/08/19 11:34 Sod 2.25 gm/ Dextrose IVPB 100 mls/hr Q8H-IV RANJAN Administration Protocol Insulin Aspart 1 vial 11/04/19 16:30 11/08/19 11:48 Novolog Vial Sliding Scale - SQ 2 units ACHS RANJAN Administration Protocol Pantoprazole Sodium 40 mg 11/07/19 22:00 11/08/19 11:32 Protonix Iv IVPUSH 40 mg BID RANJAN Administration Ranolazine 500 mg 11/04/19 22:00 11/08/19 11:33 Ranexa - PO 500 mg BID RANJAN Administration Tetrahydrozoline HCl 1 drop 11/06/19 23:56 11/07/19 16:09 Visine - OU 1 drop BID PRN Administration DRY EYES Tiotropium [place] 1 puff 11/05/19 14:45 11/08/19 11:34 Spiriva Respimat IH 1 puff DAILY RANJAN Administration Zinc Oxide 1 applic 11/08/19 14:04 Desitin Diaper Rash Oint - TP ASDIR PRN HYGEINE Impression 1. ckd 2. anemia 3. chf 4. hc hemoptysis 5. ILD 6. cad 7. htn 8. a-fib 9. cva 10. ANÍBAL Plan - cont with po lasix - volume status stablizing - monitor renal function - monitor pulse ox - he remains confused - avoid nsiads
--- NOTE | 2019-11-08 15:27 | PN ---
Teaching Attending Note Name of Resident: Baljit Strong ATTENDING PHYSICIAN STATEMENT I saw and evaluated the patient. I reviewed the resident's note and discussed the case with the resident. I agree with the resident's findings and plan as documented. SUBJECTIVE: pt feels well, has no complaints wants to go home OBJECTIVE: Vital Signs Period Temp Pulse Resp BP Sys/Knutson Pulse Ox Last 24 Hr 98.2 F-98.9 F 61-76 18-18 123-147/46-63 91-99 GENERAL: The patient is awake, alert, and fully oriented, in no acute distress. HEAD: Normal with no signs of trauma. EYES: PERRL, extraocular movements intact. No ptosis. ENT: Ears normal, nares patent, oropharynx clear without exudates, moist mucous membranes. Large tongue. NECK: Trachea midline, full range of motion, supple. LUNGS: Breath sounds equal, clear to auscultation bilaterally, no wheezes, no crackles, no accessory muscle use. HEART: Regular rate and rhythm, S1, S2 without murmur, rub or gallop. ABDOMEN: Soft, nontender, nondistended, normoactive bowel sounds, no guarding, no rebound, no masses. EXTREMITIES: 2+ pulses, warm, well-perfused, no edema. NEUROLOGICAL: slurred speech, gait not observed. speaks Yakut. PSYCH: Normal mood, normal affect. SKIN: Warm, dry, normal turgor, rash in R Groin ASSESSMENT AND PLAN: 84 y/o M with Hx COPD 2L home, CHF, HTN, HLD, CKD, CAD with 2 vessel disease and intervention, Prostate Ca on radiation AFIB off AC due to high risk of bleed , Parkinson's Disease, GERD, Gastric adenoma, ILD who presents with shortness of breath and hypoxia SOB/hypoxia: Now resolved patient clinically euvolemic plan to complete 7 day of abx for possible aspiration PNA appreciate S/S recs Pt worked with PT this morning, awaiting recs Anemia: Concern for GI blood Loss Continue PPI, s/p 1 unit PRBC Plan for EGD with GI, patient optimized from cardio-pulm standpoint Rest of plan as per resident note
[2019-11-08] MEDS: POLYETHYLENE GLYCOL 3350 119 GM BTL PO SCH (15:36)
[2019-11-08] MEDS: COD LIVER OIL/ZINC OXIDE PASTE 56 GM TUBE TP PRN (15:37)
--- NOTE | 2019-11-08 16:56 | PN ---
Progress Note (short form) - Note Progress Note: Reviewed previous endoscopy report from 2016 (in [facility] for review) 3cm antral gastric mass noted at that time. If H/H remains stable, agree with [facility] as outpatient for EGD/EUS. If continued dwindling H/H, would advise transfer to [facility] for the procedure procedure.
[2019-11-08] MEDS: DOXAZOSIN MESYLATE 2 MG TABLET PO SCH (21:56)
[2019-11-08] MEDS: TETRAHYDROZOLINE HCL EYE DROPS OU PRN (21:57)
[2019-11-09] MEDS ORDERED: PIPERACILLIN/TAZOBACTAM 2.25 GM VIAL IVPB ONE ×3 (00:53→17:24)
[2019-11-09] MEDS ORDERED: DEXTROSE 5%-WATER - 50 ML IVPB ONE ×3 (00:54→17:24)
[2019-11-09] MEDS: PIPERACILLIN/TAZOB 2.25 GM 2.25 GM in DEXTROSE 5%-WATER - 50 ML IVPB SCH ×3 (01:21→17:27)
[2019-11-09] MEDS: INSULIN SLIDING SCALE (NOVOLOG) 1 VIAL SQ SCH ×4 (06:06→22:27)
[2019-11-09 06:52] LABS: HEMATOCRIT 26.3 % (35.4-49); HEMOGLOBIN 8.8 GM/dL (11.7-16.9); MCH 30.2 pg (25.7-33.7); MCHC 33.5 g/dl (32.0-35.9); MEAN CELL VOLUME 90.1 fl (80-96); MEAN PLT VOLUME 8.3 fl (7.5-11.1); PLATELET COUNT 193 K/MM3 (134-434); RBC 2.92 M/mm3 (4.00-5.60); RDW 17.1 % (11.9-15.9); WHITE BLOOD COUNT 6.8 K/mm3 (4.0-10.0)
[2019-11-09 07:19] LABS: ALBUMIN 2.6 g/dl (3.4-5.0); ANION GAP 3 MMOL/L (8-16); BILIRUBIN,TOTAL 0.8 mg/dL (0.2-1); BLOOD UREA NITROGEN 37.7 mg/dL (7-18); CALCIUM 7.6 mg/dL (8.5-10.1); CHLORIDE 100 mmol/L (98-107); CO2 36 mmol/L (21-32); GLUCOSE,RANDOM 88 mg/dL (74-106); MAGNESIUM 2.4 mg/dL (1.8-2.4); PHOSPHOROUS 2.8 mg/dL (2.5-4.9); POTASSIUM 4.3 mmol/L (3.5-5.1); SGOT/AST 15 U/L (15-37); SODIUM 140 mmol/L (136-145); TOT PROT 5.4 g/dl (6.4-8.2)
[2019-11-09 07:20] LABS: ALK PHOS 53 U/L (45-117)
[2019-11-09 07:24] LABS: SGPT/ALT < 6 U/L (13-61)
[2019-11-09] MEDS ORDERED: PT OWN MED DRAWER 7, Y5N ONE ×2 (09:21→21:41)
[2019-11-09] MEDS: PANTOPRAZOLE SODIUM 40 MG VIAL IVPUSH SCH ×2 (10:08→21:48)
[2019-11-09] MEDS: CARVEDILOL 25 MG TABLET (FP) PO SCH ×2 (10:09→21:48)
[2019-11-09] MEDS: RANOLAZINE E.R. 500 MG TABLET (FP) PO SCH ×2 (10:09→21:48)
[2019-11-09] MEDS: amLODIPine BESYLATE 10 MG TABLET (FP) PO SCH (10:09)
[2019-11-09] MEDS: POLYETHYLENE GLYCOL 3350 119 GM BTL PO SCH (10:09)
[2019-11-09] MEDS: FUROSEMIDE 40 MG TABLET (FP) PO SCH (10:09)
[2019-11-09] MEDS: TETRAHYDROZOLINE HCL EYE DROPS OU PRN (10:10)
[2019-11-09] MEDS: BUDESONIDE/FORMETEROL FUMARATE 160/4.5 mcg INHALER IH SCH ×2 (10:10→21:47)
[2019-11-09] MEDS: TIOTROPIUM BROMIDE 2.5 MCG (SPIRIVA) RESPIMAT INHALER IH SCH (10:10)
[2019-11-09] MEDS: COD LIVER OIL/ZINC OXIDE PASTE 56 GM TUBE TP PRN (10:10)
--- NOTE | 2019-11-09 10:17 | PN ---
Progress Note, Physician History of Present Illness: pulmonary alert,comfortable,-sob - Current Medication List Current Medications: Active Medications Acetaminophen (Tylenol -) 650 mg PO Q6H PRN PRN Reason: Fever Or Pain Last Admin: 11/04/19 22:24 Dose: 650 mg Documented by: Amlodipine Besylate (Norvasc -) 10 mg PO DAILY [facility] Last Admin: 11/09/19 10:09 Dose: 10 mg Documented by: Budesonide/Formoterol Fumarate (Symbicort 160/4.5mcg -) 2 puff IH BID [facility] Last Admin: 11/09/19 10:10 Dose: 2 puff Documented by: Carbidopa/Levodopa (Sinemet *Cr* 50/200 -) 1 combo PO BID [facility] Last Admin: 11/09/19 10:09 Dose: 1 combo Documented by: Carvedilol (Coreg -) 25 mg PO BID [facility] Last Admin: 11/09/19 10:09 Dose: 25 mg Documented by: Doxazosin Mesylate (Cardura -) 2 mg PO HS [facility] Last Admin: 11/08/19 21:56 Dose: 2 mg Documented by: Furosemide (Lasix -) 80 mg PO DAILY [facility] Last Admin: 11/09/19 10:09 Dose: 80 mg Documented by: Piperacillin Sod/Tazobactam (Sod 2.25 gm/ Dextrose) 50 mls @ 100 mls/hr IVPB Q8H-IV [facility]; Protocol Last Admin: 11/09/19 10:08 Dose: 100 mls/hr Documented by: Insulin Aspart (Novolog Vial Sliding Scale -) 1 vial SQ ACHS [facility]; Protocol Last Admin: 11/09/19 06:06 Dose: Not Given Documented by: Pantoprazole Sodium (Protonix Iv) 40 mg IVPUSH BID [facility] Last Admin: 11/09/19 10:08 Dose: 40 mg Documented by: Polyethylene Glycol (Miralax (For Daily Use) -) 17 gm PO DAILY [facility] Last Admin: 11/09/19 10:09 Dose: 17 gm Documented by: Ranolazine (Ranexa -) 500 mg PO BID [facility] Last Admin: 11/09/19 10:09 Dose: 500 mg Documented by: Tetrahydrozoline HCl (Visine -) 1 drop OU BID PRN PRN Reason: DRY EYES Last Admin: 11/09/19 10:10 Dose: 1 drop Documented by: Tiotropium [place] (Spiriva Respimat) 1 puff IH DAILY [facility] Last Admin: 11/09/19 10:10 Dose: 1 puff Documented by: Zinc Oxide (Desitin Diaper Rash Oint -) 1 applic TP ASDIR PRN PRN Reason: HYGEINE Last Admin: 11/09/19 10:10 Dose: 1 applic Documented by: - Objective Vital Signs: Vital Signs Temperature 98.2 F 11/09/19 06:00 Pulse Rate 60 11/09/19 06:00 Respiratory Rate 18 11/09/19 06:00 Blood Pressure 138/43 L 11/09/19 06:00 O2 Sat by Pulse Oximetry (%) 98 11/09/19 06:00 Constitutional: Yes: Calm, Thin Eyes: Yes: WNL HENT: Yes: WNL Neck: Yes: WNL Cardiovascular: Yes: Regular Rate and Rhythm, S1, S2 Respiratory: Yes: CTA Bilaterally Gastrointestinal: Yes: Normal Bowel Sounds, Soft Extremities: Yes: WNL Edema: No Labs: CBC, BMP 11/09/19 06:12 11/09/19 06:12 INR, PTT INR 1.55 (0.83-1.09) H 11/04/19 09:49 Assessment/Plan Problem List - Problems (1) Acute on chronic diastolic (congestive) heart failure Code(s): I50.33 - ACUTE ON CHRONIC DIASTOLIC (CONGESTIVE) HEART FAILURE (2) Respiratory failure Code(s): J96.90 - RESPIRATORY FAILURE, UNSP, UNSP W HYPOXIA OR HYPERCAPNIA Qualifiers: Chronicity: acute Respiratory failure complication: hypoxia Qualified Code(s): J96.01 - Acute respiratory failure with hypoxia (3) Anemia Code(s): D64.9 - ANEMIA, UNSPECIFIED Qualifiers: Anemia type: unspecified type Qualified Code(s): D64.9 - Anemia, unspecified (4) Anemia due to chronic blood loss Code(s): D50.0 - IRON DEFICIENCY ANEMIA SECONDARY TO BLOOD LOSS (CHRONIC) (5) Gastric adenoma Code(s): D13.1 - BENIGN NEOPLASM OF STOMACH (6) Gastric dysplasia Code(s): 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 - CONGENITAL MALFORMATION OF STOMACH, UNSPECIFIED (7) Hypercholesterolemia Code(s): E78.00 - PURE HYPERCHOLESTEROLEMIA, UNSPECIFIED (8) PAF (paroxysmal atrial fibrillation) Code(s): I48.0 - PAROXYSMAL ATRIAL FIBRILLATION (9) Peripheral vascular disease Code(s): I73.9 - PERIPHERAL VASCULAR DISEASE, UNSPECIFIED (10) Pulmonary hypertension Code(s): I27.20 - PULMONARY HYPERTENSION, UNSPECIFIED (11) Pulmonary vascular congestion Code(s): R09.89 - OTH SYMPTOMS AND SIGNS INVOLVING THE CIRC AND RESP SYSTEMS (12) S/P CABG (coronary artery bypass graft) Code(s): Z95.1 - PRESENCE OF AORTOCORONARY BYPASS GRAFT (13) CHF (congestive heart failure) Code(s): I50.9 - HEART FAILURE, UNSPECIFIED Qualifiers: Heart failure type: unspecified Heart failure chronicity: acute on chronic Qualified Code(s): I50.9 - Heart failure, unspecified (14) DM Diabetes mellitus Code(s): E11.9 - TYPE 2 DIABETES MELLITUS WITHOUT COMPLICATIONS (15) Emphysema lung Code(s): J43.9 - EMPHYSEMA, UNSPECIFIED (16) ILD (interstitial lung disease) Code(s): J84.9 - INTERSTITIAL PULMONARY DISEASE, UNSPECIFIED (17) Renal insufficiency Code(s): N28.9 - DISORDER OF KIDNEY AND URETER, UNSPECIFIED (18) Acute hypoxemic respiratory failure Code(s): J96.01 - ACUTE RESPIRATORY FAILURE WITH HYPOXIA Assessment/Plan IMP: Low clinical suspicion of PNA PLAN: ABX per ID NIPPV as needed Supplemental O2 to maintain saturation Aspiration precautions BD TX Lasix po VTE prophylaxis Daily wts DR SMITH
--- NOTE | 2019-11-09 12:58 | PN.GI ---
GI Progress Note Subjective: No bleeding No BM for [address] Gabrielle Bradford at [facility]: Mr. Gruber had EGD/Colonoscopy @ [facility] [address] Devan Cedeno. Multiple colon polyps were removed and EGD revealed findings c/w prior h/o adenoma removal without recurrence) - Objective Vital Signs: Vital Signs Temperature 98.0 F 11/09/19 10:00 Pulse Rate 61 11/09/19 10:00 Respiratory Rate 16 11/09/19 10:00 Blood Pressure 140/50 L 11/09/19 10:00 O2 Sat by Pulse Oximetry (%) 99 11/09/19 10:00 Constitutional: Calm Eyes: No: Sclera Icterus Cardiovascular: Yes: Regular Rate and Rhythm. No: Murmur Respiratory: Yes: Wheezes (Mild expiratory wheezing bilaterally) Gastrointestinal Inspection: No: Distention, Scars ...Auscultate: Yes: Normoactive Bowel Sounds ...Palpate: Yes: Soft. No: Hepatomegaly, Splenomegaly, Tenderness ...Rectal Exam: Yes: Other (No external lesions, no masses, soft fecal impaction not amenable to manual disimpaction) Edema: No (No LE edema) Neurological: Yes: Alert Labs: CBC, BMP 11/09/19 06:12 11/09/19 06:12 INR, PTT INR 1.55 (0.83-1.09) H 11/04/19 09:49 Problem List - Problems (1) Anemia Assessment/Plan: No overt bleeding A/C is being held Discussed options with Mr. Gruber including repeat EGD/Colonoscopy prior to discharge given trace guiaiac positive stool noted this admission, given his history of colon polyps and to aid in directing the resumption of anticoagulation (exclude potential high risk bleeding lesion). Discussed potential risks of the procedures like but not limited to bleeding, perforation, infection, sedation medication effects all of which could be potentially life threatening. Also gave option of haveing him follow-up at the medical center where he had previous procedure, as an outpatient ([phone]). he stated that he would think about these options. I had spoken to Mr. Gruber's son prior to this, whi was in agreement with procedures and stated that he would speak with his father to see what he wanted to do. If cleared from cardiopulmonary standpoint, possible EGD/Colon 11/11 Discussed with Mr. Gruber's medial sttanding Dr. Josemanuel Mack Code(s): D64.9 - ANEMIA, UNSPECIFIED Qualifiers: Anemia type: unspecified type Qualified Code(s): D64.9 - Anemia, u nspecified
[2019-11-09] MEDS: DOCUSATE SODIUM 100 MG CAPSULE (FP) PO SCH (13:13)
--- NOTE | 2019-11-09 13:18 | PN ---
Teaching Attending Note Name of Resident: Baljit Strong ATTENDING PHYSICIAN STATEMENT I saw and evaluated the patient. I reviewed the resident's note and discussed the case with the resident. I agree with the resident's findings and plan as documented. SUBJECTIVE: Patient wants to go home OBJECTIVE: Vital Signs Period Temp Pulse Resp BP Sys/Knutson Pulse Ox Last 24 Hr 98.0 F-98.9 F 60-63 16-18 134-148/43-56 96-99 GENERAL: The patient is awake, alert, and fully oriented, in no acute distress. HEAD: Normal with no signs of trauma. EYES: PERRL, extraocular movements intact. No ptosis. ENT: Ears normal, nares patent, oropharynx clear without exudates, moist mucous membranes. Large tongue. NECK: Trachea midline, full range of motion, supple. LUNGS: Breath sounds equal, clear to auscultation bilaterally, no wheezes, no crackles, no accessory muscle use. HEART: Regular rate and rhythm, S1, S2 without murmur, rub or gallop. ABDOMEN: Soft, nontender, nondistended, normoactive bowel sounds, no guarding, no rebound, no masses. EXTREMITIES: 2+ pulses, warm, well-perfused, no edema. NEUROLOGICAL: slurred speech, gait not observed. speaks [place]ian. PSYCH: Normal mood, normal affect. SKIN: Warm, dry, normal turgor, rash in R Groin ASSESSMENT AND PLAN: 84 y/o M with Hx COPD 2L home, CHF, HTN, HLD, CKD, CAD with 2 vessel disease and intervention, Prostate Ca on radiation AFIB off AC due to high risk of bleed , Parkinson's Disease, GERD, Gastric adenoma, ILD who presents with shortness of breath and hypoxia SOB/hypoxia: Now resolved patient clinically euvolemic Completed 5 days of IV Abx, stop today Continue PO Lasix today A. fib not on AC in setting of bleed Continue rate control Anemia: Concern for GI blood Loss Continue PPI, s/p 1 unit PRBC Plan for EGD/[place] 11/12/19 with GI Rest of plan as per resident note
--- NOTE | 2019-11-09 16:22 | PN ---
Physical Exam: SUBJECTIVE: Patient seen and examined at bedside. The patient reports no fever/chills or shortness of breath. The patient's rash looks mildly improved from yesterday. The patient also reported some constipation. Docusate was added to the patient's medications after seeing him. The patient was able to have 2 bowel movements later in the day. OBJECTIVE: Vital Signs Period Temp Pulse Resp BP Sys/Knutson Pulse Ox Last 24 Hr 98.0 F-98.4 F 60-63 16-18 138-148/43-76 96-99 GENERAL: The patient is awake, alert, and fully oriented, in no acute distress. HEAD: Normal with no signs of trauma. EYES: PERRL, extraocular movements intact. No ptosis. ENT: Ears normal, nares patent, oropharynx clear without exudates, moist mucous membranes. Moderately large tongue. NECK: Trachea midline, full range of motion, supple. LUNGS: Breath sounds equal, clear to auscultation bilaterally, no wheezes, no cr ackles, no accessory muscle use. HEART: Regular rate and rhythm, S1, S2 without murmur, rub or gallop. ABDOMEN: Soft, nontender, nondistended, normoactive bowel sounds, no guarding, no rebound, no masses. EXTREMITIES: 2+ pulses, warm, well-perfused, no edema. NEUROLOGICAL: slurred speech, gait not observed. speaks Welsh. PSYCH: Normal mood, normal affect. SKIN: Warm, dry, normal turgor. Nails pale/blanched. Erythematous rash in the inguinal folds mildly improved from yesterday. Laboratory Results - last 24 hr 11/08/19 11/09/19 11/09/19 21:54 01:38 05:47 WBC RBC Hgb Hct MCV MCH MCHC RDW Plt Count MPV Sodium Potassium Chloride Carbon Dioxide Anion Gap BUN Creatinine Est GFR (CKD-EPI)AfAm Est GFR (CKD-EPI)NonAf POC Glucometer 178 80 88 Random Glucose Calcium Phosphorus Magnesium Total Bilirubin AST ALT Alkaline Phosphatase Total Protein Albumin 11/09/19 11/09/19 11/09/19 06:12 06:12 11:25 WBC 6.8 RBC 2.92 L Hgb 8.8 L Hct 26.3 L MCV 90.1 MCH 30.2 MCHC 33.5 RDW 17.1 H Plt Count 193 MPV 8.3 Sodium 140 Potassium 4.3 Chloride 100 Carbon Dioxide 36 H Anion Gap 3 L BUN 37.7 H Creatinine 2.0 H Est GFR (CKD-EPI)AfAm 34.74 Est GFR (CKD-EPI)NonAf 29.97 POC Glucometer 188 Random Glucose 88 Calcium 7.6 L Phosphorus 2.8 Magnesium 2.4 Total Bilirubin 0.8 AST 15 ALT < 6 L Alkaline Phosphatase 53 Total Protein 5.4 L Albumin 2.6 L Active Medications Generic Name Dose Route Start Last Admin Trade Name Freq PRN Reason Stop Dose Admin Acetaminophen 650 mg 11/04/19 21:46 11/04/19 22:24 Tylenol - PO 650 mg Q6H PRN Administration Fever Or Pain Amlodipine Besylate 10 mg 11/05/19 10:00 11/09/19 10:09 Norvasc - PO 10 mg DAILY RANJAN Administration Budesonide/Formoterol Fumarate 2 puff 11/05/19 22:00 11/09/19 10:10 Symbicort 160/4.5mcg - IH 2 puff BID RANJAN Administration Carbidopa/Levodopa 1 combo 11/04/19 22:00 11/09/19 10:09 Sinemet *Cr* 50/200 - PO 1 combo BID RANJAN Administration Carvedilol 25 mg 11/04/19 22:00 11/09/19 10:09 Coreg - PO 25 mg BID RANJAN Administration Docusate Sodium 100 mg 11/09/19 12:30 11/09/19 13:13 Colace - PO 100 mg DAILY RANJAN Administration Doxazosin Mesylate 2 mg 11/05/19 22:00 11/08/19 21:56 Cardura - PO 2 mg HS RANJAN Administration Furosemide 80 mg 11/07/19 10:00 11/09/19 10:09 Lasix - PO 80 mg DAILY RANJAN Administration Piperacillin Sod/Tazobactam 50 mls @ 100 mls/hr 11/05/19 18:00 11/09/19 10:08 Sod 2.25 gm/ Dextrose IVPB 100 mls/hr Q8H-IV RANJAN Administration Protocol Insulin Aspart 1 vial 11/04/19 16:30 11/09/19 11:29 Novolog Vial Sliding Scale - SQ 2 units ACHS RANJAN Administration Protocol Pantoprazole Sodium 40 mg 11/07/19 22:00 11/09/19 10:08 Protonix Iv IVPUSH 40 mg BID RANJAN Administration Polyethylene Glycol 17 gm 11/08/19 15:00 11/09/19 10:09 Miralax (For Daily Use) - PO 17 gm DAILY RANJAN Administration Ranolazine 500 mg 11/04/19 22:00 11/09/19 10:09 Ranexa - PO 500 mg BID RANJAN Administration Tetrahydrozoline HCl 1 drop 11/06/19 23:56 11/09/19 10:10 Visine - OU 1 drop BID PRN Administration DRY EYES Tiotropium [place] 1 puff 11/05/19 14:45 11/09/19 10:10 Spiriva Respimat IH 1 puff DAILY RANJAN Administration Zinc Oxide 1 applic 11/08/19 14:04 11/09/19 10:10 Desitin Diaper Rash Oint - TP 1 applic ASDIR PRN Administration HYGEINE ASSESSMENT/PLAN: 84 year old male patient with past medical history that includes COPD on 2 lpm, Diastolic CHF, AFib off Eliquis, GERD, HTN, HLD, Parkinson's Disease, CAD with CABGx2, Prostate Ca on RTx, Gastric Adenoma resected around 2015, and ILD, who presented to the ED with shortness of breath and hypoxia. 1. Normocytic Anemia s/p 1 unit pRBC - Hgb 8.8 - MCV 90.1 - FOBT showed trace blood - Monitoring the patient's Hgb - The patient is medically optimized from a cardiopulmonary stand point for a colonoscopy and diagnostic upper endoscopy as well as potential endoscopic ultrasound. - Asked patient whether he would like to do the EGD and Colonoscopy here on Tuesday potentially or as an outpatient. Due to the patient's slurred speech, I asked four times. My understanding is that he will talk to his about it in the evening, but he is leaning toward doing it inpatient here. 2. Erythematous rash secondary to urinary incontinence - The patient is wearing a diaper for the urinary incontinence - Rash mildly improved 3. Hypoxia secondary to COPD exacerbation vs CHF exacerbation vs PNA vs aspiration PNA - resolved - PMHx of COPD on 2 lpm home O2 - PMHx of diastolic CHF - CXR showed congestive changes and a possible infiltrate - Physical exam shows a large tongue with slurring of speech - BNP was 13,375 on admission - CXR shows that the patient has a large heart - 99% oxygen saturation on 2 lpm - IV Zosyn 2.25gm Day 5 - Lasix 4. Possible ANÍBAL on CKD - resolved - Creatinine 2.0 - Baseline Creatinine appears to be 2.1 to 2.7 based on previous admissions 5. Leukocytosis secondary to possible PNA vs aspiration PNA - resolved - WBC 6.8 - afebrile at 98.3F - CXR showed congestive changes and a possible infiltrate - IV Zosyn 2.25gm Day 5 6. HTN - Coreg # FEN - Monitoring Electrolytes. Sodium Controlled Diet. DVT PPx - SCDs bilaterally Dispo - Waiting for patient to decide whether to do the EGD and Colonoscopy here on Tuesday potentially or as an outpatient Visit type - Emergency Visit Emergency Visit: Yes ED Registration Date: 11/04/19 Care time: The patient presented to the Emergency Department on the above date and was hospitalized for further evaluation of their emergent condition. - New Patient This patient is new to me today: No - Critical Care Critical Care patient: No - Discharge Referral Referred to [facility] No - Medication Review Med list reviewed for High Risk Meds patients 65 and older: Yes ATTENDING PHYSICIAN STATEMENT I saw and evaluated the patient. I reviewed the resident's note and discussed the case with the resident. I agree with the resident's findings and plan as documented. SUBJECTIVE: OBJECTIVE: ASSESSMENT AND PLAN:
[2019-11-09] MEDS ORDERED: MINERAL OIL ENEMA 133 ML ENEMA RC ONE (17:01)
--- NOTE | 2019-11-09 17:05 | PN ---
Progress Note, Physician History of Present Illness: Pt seen and examined at bedside. He is awake and appears comfortable. He denies shortness of breath at rest. - Current Medication List Current Medications: Active Medications Acetaminophen (Tylenol -) 650 mg PO Q6H PRN PRN Reason: Fever Or Pain Last Admin: 11/04/19 22:24 Dose: 650 mg Documented by: Amlodipine Besylate (Norvasc -) 10 mg PO DAILY [facility] Last Admin: 11/09/19 10:09 Dose: 10 mg Documented by: Budesonide/Formoterol Fumarate (Symbicort 160/4.5mcg -) 2 puff IH BID [facility] Last Admin: 11/09/19 10:10 Dose: 2 puff Documented by: Carbidopa/Levodopa (Sinemet *Cr* 50/200 -) 1 combo PO BID [facility] Last Admin: 11/09/19 10:09 Dose: 1 combo Documented by: Carvedilol (Coreg -) 25 mg PO BID [facility] Last Admin: 11/09/19 10:09 Dose: 25 mg Documented by: Docusate Sodium (Colace -) 100 mg PO DAILY [facility] Last Admin: 11/09/19 13:13 Dose: 100 mg Documented by: Doxazosin Mesylate (Cardura -) 2 mg PO HS [facility] Last Admin: 11/08/19 21:56 Dose: 2 mg Documented by: Furosemide (Lasix -) 80 mg PO DAILY [facility] Last Admin: 11/09/19 10:09 Dose: 80 mg Documented by: Piperacillin Sod/Tazobactam (Sod 2.25 gm/ Dextrose) 50 mls @ 100 mls/hr IVPB Q8H-IV [facility]; Protocol Last Admin: 11/09/19 10:08 Dose: 100 mls/hr Documented by: Insulin Aspart (Novolog Vial Sliding Scale -) 1 vial SQ ACHS [facility]; Protocol Last Admin: 11/09/19 11:29 Dose: 2 units Documented by: Pantoprazole Sodium (Protonix Iv) 40 mg IVPUSH BID [facility] Last Admin: 11/09/19 10:08 Dose: 40 mg Documented by: Polyethylene Glycol (Miralax (For Daily Use) -) 17 gm PO DAILY [facility] Last Admin: 11/09/19 10:09 Dose: 17 gm Documented by: Ranolazine (Ranexa -) 500 mg PO BID [facility] Last Admin: 11/09/19 10:09 Dose: 500 mg Documented by: Tetrahydrozoline HCl (Visine -) 1 drop OU BID PRN PRN Reason: DRY EYES Last Admin: 11/09/19 10:10 Dose: 1 drop Documented by: Tiotropium [place] (Spiriva Respimat) 1 puff IH DAILY RANJAN Last Admin: 11/09/19 10:10 Dose: 1 puff Documented by: Zinc Oxide (Desitin Diaper Rash Oint -) 1 applic TP ASDIR PRN PRN Reason: HYGEINE Last Admin: 11/09/19 10:10 Dose: 1 applic Documented by: - Objective Vital Signs: Vital Signs Temperature 98.3 F 11/09/19 14:04 Pulse Rate 62 11/09/19 14:04 Respiratory Rate 16 11/09/19 14:04 Blood Pressure 148/76 11/09/19 14:04 O2 Sat by Pulse Oximetry (%) 99 11/09/19 10:00 Constitutional: Yes: Calm Eyes: Yes: Conjunctiva Clear HENT: Yes: Atraumatic Cardiovascular: Yes: S1, S2 Respiratory: Yes: On Nasal O2 Gastrointestinal: Yes: Soft Genitourinary: Yes: WNL Musculoskeletal: Yes: WNL Neurological: Yes: Confusion Psychiatric: Yes: Oriented Labs: CBC, BMP 11/09/19 06:12 11/09/19 06:12 INR, PTT INR 1.55 (0.83-1.09) H 11/04/19 09:49 Problem List - Problems (1) Acute on chronic diastolic (congestive) heart failure Code(s): I50.33 - ACUTE ON CHRONIC DIASTOLIC (CONGESTIVE) HEART FAILURE (2) ILD (interstitial lung disease) Code(s): J84.9 - INTERSTITIAL PULMONARY DISEASE, UNSPECIFIED Assessment/Plan Current Medications Generic Name Dose Route Start Last Admin Trade Name Freq PRN Reason Stop Dose Admin Acetaminophen 650 mg 11/04/19 21:46 11/04/19 22:24 Tylenol - PO 650 mg Q6H PRN Administration Fever Or Pain Amlodipine Besylate 10 mg 11/05/19 10:00 11/09/19 10:09 Norvasc - PO 10 mg DAILY RANJAN Administration Budesonide/Formoterol Fumarate 2 puff 11/05/19 22:00 11/09/19 10:10 Symbicort 160/4.5mcg - IH 2 puff BID RANJAN Administration Carbidopa/Levodopa 1 combo 11/04/19 22:00 11/09/19 10:09 Sinemet *Cr* 50/200 - PO 1 combo BID RANJAN Administration Carvedilol 25 mg 11/04/19 22:00 11/09/19 10:09 Coreg - PO 25 mg BID RANJAN Administration Docusate Sodium 100 mg 11/09/19 12:30 11/09/19 13:13 Colace - PO 100 mg DAILY RANJAN Administration Doxazosin Mesylate 2 mg 11/05/19 22:00 11/08/19 21:56 Cardura - PO 2 mg HS RANJAN Administration Furosemide 80 mg 11/07/19 10:00 11/09/19 10:09 Lasix - PO 80 mg DAILY RANJAN Administration Piperacillin Sod/Tazobactam 50 mls @ 100 mls/hr 11/05/19 18:00 11/09/19 10:08 Sod 2.25 gm/ Dextrose IVPB 100 mls/hr Q8H-IV RANJAN Administration Protocol Insulin Aspart 1 vial 11/04/19 16:30 11/09/19 11:29 Novolog Vial Sliding Scale - SQ 2 units ACHS RANJAN Administration Protocol Mineral Oil 133 ml 11/09/19 17:01 Fleet Mineral Oil Rectal Enema - SD 11/09/19 17:02 NOW ONE Pantoprazole Sodium 40 mg 11/07/19 22:00 11/09/19 10:08 Protonix Iv IVPUSH 40 mg BID RANJAN Administration Polyethylene Glycol 17 gm 11/08/19 15:00 11/09/19 10:09 Miralax (For Daily Use) - PO 17 gm DAILY RANJAN Administration Ranolazine 500 mg 11/04/19 22:00 11/09/19 10:09 Ranexa - PO 500 mg BID RANJAN Administration Tetrahydrozoline HCl 1 drop 11/06/19 23:56 11/09/19 10:10 Visine - OU 1 drop BID PRN Administration DRY EYES Tiotropium [place] 1 puff 11/05/19 14:45 11/09/19 10:10 Spiriva Respimat IH 1 puff DAILY RANJAN Administration Zinc Oxide 1 applic 11/08/19 14:04 11/09/19 10:10 Desitin Diaper Rash Oint - TP 1 applic ASDIR PRN Administration HYGEINE Impression 1. ckd 2. anemia 3. chf 4. hc hemoptysis 5. ILD 6. cad 7. htn 8. a-fib 9. cva 10. ANÍBAL Plan - cont po last - renal function is improving - cont to monitor lytes - will need outpt follow up - monitor pulse ox - he remains confused - avoid nsiads
[2019-11-09] MEDS: ACETAMINOPHEN 325 MG TABLET (FP) PO PRN (17:27)
[2019-11-09] MEDS: DOXAZOSIN MESYLATE 2 MG TABLET PO SCH (22:36)
[2019-11-10] MEDS ORDERED: PIPERACILLIN/TAZOBACTAM 2.25 GM VIAL IVPB ONE ×2 (01:08→09:22)
[2019-11-10] MEDS ORDERED: DEXTROSE 5%-WATER - 50 ML IVPB ONE ×2 (01:08→09:22)
[2019-11-10] MEDS: PIPERACILLIN/TAZOB 2.25 GM 2.25 GM in DEXTROSE 5%-WATER - 50 ML IVPB SCH ×2 (02:42→09:27)
[2019-11-10] MEDS: INSULIN SLIDING SCALE (NOVOLOG) 1 VIAL SQ SCH ×4 (06:08→21:49)
[2019-11-10 07:17] LABS: BASO % 0.7 % (0-2.0); EOS % 1.7 % (0-4.5); HEMATOCRIT 25.5 % (35.4-49); HEMOGLOBIN 8.4 GM/dL (11.7-16.9); LYMPH % 6.4 % (8-40); MCHC 33.1 g/dl (32.0-35.9); MEAN CELL VOLUME 90.7 fl (80-96); MEAN PLT VOLUME 8.5 fl (7.5-11.1); MONO % 11.1 % (3.8-10.2); NEUT % 80.1 % (42.8-82.8); PLATELET COUNT 177 K/MM3 (134-434); RBC 2.81 M/mm3 (4.00-5.60); RDW 16.8 % (11.9-15.9); WHITE BLOOD COUNT 6.2 K/mm3 (4.0-10.0)
[2019-11-10 07:18] LABS: INR 1.23 (0.83-1.09); PROTHROMBIN TIME (PATIENT) 14.5 SEC (9.7-13.0)
--- NOTE | 2019-11-10 07:33 | PN ---
Progress Note, Physician History of Present Illness: PULMONARY ALERT,NO DISTRESS,-SOB - Current Medication List Current Medications: Active Medications Acetaminophen (Tylenol -) 650 mg PO Q6H PRN PRN Reason: Fever Or Pain Last Admin: 11/09/19 17:27 Dose: 650 mg Documented by: Amlodipine Besylate (Norvasc -) 10 mg PO DAILY [facility] Last Admin: 11/09/19 10:09 Dose: 10 mg Documented by: Budesonide/Formoterol Fumarate (Symbicort 160/4.5mcg -) 2 puff IH BID [facility] Last Admin: 11/09/19 21:47 Dose: 2 puff Documented by: Carbidopa/Levodopa (Sinemet *Cr* 50/200 -) 1 combo PO BID [facility] Last Admin: 11/09/19 22:35 Dose: 1 combo Documented by: Carvedilol (Coreg -) 25 mg PO BID [facility] Last Admin: 11/09/19 21:48 Dose: 25 mg Documented by: Docusate Sodium (Colace -) 100 mg PO DAILY [facility] Last Admin: 11/09/19 13:13 Dose: 100 mg Documented by: Doxazosin Mesylate (Cardura -) 2 mg PO HS [facility] Last Admin: 11/09/19 22:36 Dose: 2 mg Documented by: Furosemide (Lasix -) 80 mg PO DAILY [facility] Last Admin: 11/09/19 10:09 Dose: 80 mg Documented by: Piperacillin Sod/Tazobactam (Sod 2.25 gm/ Dextrose) 50 mls @ 100 mls/hr IVPB Q8H-IV [facility]; Protocol Last Admin: 11/10/19 02:42 Dose: 100 mls/hr Documented by: Insulin Aspart (Novolog Vial Sliding Scale -) 1 vial SQ ACHS [facility]; Protocol Last Admin: 11/10/19 06:08 Dose: Not Given Documented by: Pantoprazole Sodium (Protonix Iv) 40 mg IVPUSH BID [facility] Last Admin: 11/09/19 21:48 Dose: 40 mg Documented by: Polyethylene Glycol (Miralax (For Daily Use) -) 17 gm PO DAILY [facility] Last Admin: 11/09/19 10:09 Dose: 17 gm Documented by: Polyethylene Glycol (Miralax (For Bowel Prep) -) 255 gm PO ONCE ONE Stop: 11/11/19 12:01 Ranolazine (Ranexa -) 500 mg PO BID [facility] Last Admin: 11/09/19 21:48 Dose: 500 mg Documented by: Tetrahydrozoline HCl (Visine -) 1 drop OU BID PRN PRN Reason: DRY EYES Last Admin: 11/09/19 10:10 Dose: 1 drop Documented by: Tiotropium [place] (Spiriva Respimat) 1 puff IH DAILY [facility] Last Admin: 11/09/19 10:10 Dose: 1 puff Documented by: Zinc Oxide (Desitin Diaper Rash Oint -) 1 applic TP ASDIR PRN PRN Reason: HYGEINE Last Admin: 11/09/19 10:10 Dose: 1 applic Documented by: - Objective Vital Signs: Vital Signs Temperature 98.7 F 11/10/19 02:40 Pulse Rate 60 11/10/19 02:40 Respiratory Rate 18 11/10/19 02:40 Blood Pressure 129/55 L 11/10/19 02:40 O2 Sat by Pulse Oximetry (%) 99 11/10/19 05:00 Constitutional: Yes: Calm, Thin Eyes: Yes: WNL HENT: Yes: WNL Neck: Yes: WNL Cardiovascular: Yes: Regular Rate and Rhythm, S1, S2 Respiratory: Yes: CTA Bilaterally Gastrointestinal: Yes: Normal Bowel Sounds, Soft Extremities: Yes: WNL Edema: No Labs: INR, PTT INR 1.23 (0.83-1.09) H 11/10/19 06:33 Assessment/Plan Problem List - Problems (1) Acute on chronic diastolic (congestive) heart failure Code(s): I50.33 - ACUTE ON CHRONIC DIASTOLIC (CONGESTIVE) HEART FAILURE (2) Respiratory failure Code(s): J96.90 - RESPIRATORY FAILURE, UNSP, UNSP W HYPOXIA OR HYPERCAPNIA Qualifiers: Chronicity: acute Respiratory failure complication: hypoxia Qualified Code(s): J96.01 - Acute respiratory failure with hypoxia (3) Anemia Code(s): D64.9 - ANEMIA, UNSPECIFIED Qualifiers: Anemia type: unspecified type Qualified Code(s): D64.9 - Anemia, unspecified (4) Anemia due to chronic blood loss Code(s): D50.0 - IRON DEFICIENCY ANEMIA SECONDARY TO BLOOD LOSS (CHRONIC) (5) Gastric adenoma Code(s): D13.1 - BENIGN NEOPLASM OF STOMACH (6) Gastric dysplasia Code(s): Q40.3 - CONGENITAL MALFORMATION OF STOMACH, UNSPECIFIED (7) Hypercholesterolemia Code(s): E78.00 - PURE HYPERCHOLESTEROLEMIA, UNSPECIFIED (8) PAF (paroxysmal atrial fibrillation) Code(s): I48.0 - PAROXYSMAL ATRIAL FIBRILLATION (9) Peripheral vascular disease Code(s): I73.9 - PERIPHERAL VASCULAR DISEASE, UNSPECIFIED (10) Pulmonary hypertension Code(s): I27.20 - PULMONARY HYPERTENSION, UNSPECIFIED (11) Pulmonary vascular congestion Code(s): R09.89 - OTH SYMPTOMS AND SIGNS INVOLVING THE CIRC AND RESP SYSTEMS (12) S/P CABG (coronary artery bypass graft) Code(s): Z95.1 - PRESENCE OF AORTOCORONARY BYPASS GRAFT (13) CHF (congestive heart failure) Code(s): I50.9 - HEART FAILURE, UNSPECIFIED Qualifiers: Heart failure type: unspecified Heart failure chronicity: acute on chronic Qualified Code(s): I50.9 - Heart failure, unspecified (14) DM Diabetes mellitus Code(s): E11.9 - TYPE 2 DIABETES MELLITUS WITHOUT COMPLICATIONS (15) Emphysema lung Code(s): J43.9 - EMPHYSEMA, UNSPECIFIED (16) ILD (interstitial lung disease) Code(s): J84.9 - INTERSTITIAL PULMONARY DISEASE, UNSPECIFIED (17) Renal insufficiency Code(s): N28.9 - DISORDER OF KIDNEY AND URETER, UNSPECIFIED (18) Acute hypoxemic respiratory failure Code(s): J96.01 - ACUTE RESPIRATORY FAILURE WITH HYPOXIA Assessment/Plan IMP: Low clinical suspicion of PNA PLAN: ABX per ID NIPPV as needed Supplemental O2 to maintain saturation Aspiration precautions BD TX Lasix po VTE prophylaxis Daily wts Monitor lytes,renal function,h+h DR SMITH
[2019-11-10 07:38] LABS: ALBUMIN 2.5 g/dl (3.4-5.0); ALK PHOS 52 U/L (45-117); ANION GAP 4 MMOL/L (8-16); BILIRUBIN,TOTAL 0.7 mg/dL (0.2-1); CALCIUM 7.8 mg/dL (8.5-10.1); CHLORIDE 100 mmol/L (98-107); CO2 34 mmol/L (21-32); GLUCOSE,RANDOM 114 mg/dL (74-106); POTASSIUM 4.5 mmol/L (3.5-5.1); SGOT/AST 14 U/L (15-37); SGPT/ALT < 6 U/L (13-61); SODIUM 138 mmol/L (136-145); TOT PROT 5.2 g/dl (6.4-8.2)
[2019-11-10] MEDS ORDERED: PT OWN MED DRAWER 7, Y5N ONE ×2 (09:21→16:47)
[2019-11-10] MEDS: PANTOPRAZOLE SODIUM 40 MG VIAL IVPUSH SCH ×2 (09:29→21:44)
[2019-11-10] MEDS: FUROSEMIDE 40 MG TABLET (FP) PO SCH (09:31)
[2019-11-10] MEDS: amLODIPine BESYLATE 10 MG TABLET (FP) PO SCH (09:31)
[2019-11-10] MEDS: RANOLAZINE E.R. 500 MG TABLET (FP) PO SCH ×2 (09:31→21:47)
[2019-11-10] MEDS: DOCUSATE SODIUM 100 MG CAPSULE (FP) PO SCH (09:32)
[2019-11-10] MEDS: BUDESONIDE/FORMETEROL FUMARATE 160/4.5 mcg INHALER IH SCH ×2 (09:32→21:50)
[2019-11-10] MEDS: TIOTROPIUM BROMIDE 2.5 MCG (SPIRIVA) RESPIMAT INHALER IH SCH (09:32)
[2019-11-10] MEDS: CARVEDILOL 25 MG TABLET (FP) PO SCH ×3 (09:32→21:46)
[2019-11-10] MEDS: POLYETHYLENE GLYCOL 3350 119 GM BTL PO SCH (09:56)
--- NOTE | 2019-11-10 14:37 | PN ---
Physical Exam: SUBJECTIVE: Patient seen and examined. When asked if his breathing is ok, he shook his head no. He is currently saturating well on his home level of O2 which is 2L. He denies abdominal pain, nausea, constipation. OBJECTIVE: Vital Signs Period Temp Pulse Resp BP Sys/Knutson Pulse Ox Last 24 Hr 97.9 F-98.7 F 55-61 16-20 122-141/38-55 94-99 GENERAL: The patient is awake, alert, and fully oriented, in no acute distress. HEAD: Normal with no signs of trauma. EYES: PERRL, extraocular movements intact, conjunctiva clear. ENT: Ears normal, nares patent, moist mucous membranes. 2L NC. NECK: Trachea midline, full range of motion. LUNGS: Clear to auscultation bilaterally, no wheezes, no crackles anteriorly. HEART: Regular rate and rhythm, no murmur appreciated. ABDOMEN: Soft, nontender, nondistended, normoactive bowel sounds. EXTREMITIES: Warm, well-perfused, trace lower extremity edema. NEUROLOGICAL: Cranial nerves II through XII grossly intact. Slightly slurred speech, at baseline. PSYCH: Normal mood, normal affect. SKIN: Warm, dry, normal turgor. Laboratory Results - last 24 hr 11/09/19 11/09/19 11/10/19 16:52 21:45 05:44 WBC RBC Hgb Hct MCV MCH MCHC RDW Plt Count MPV Absolute Neuts (auto) Neutrophils % Lymphocytes % Monocytes % Eosinophils % Basophils % Nucleated RBC % PT with INR INR PTT (Actin FS) Sodium Potassium Chloride Carbon Dioxide Anion Gap BUN Creatinine Est GFR (CKD-EPI)AfAm Est GFR (CKD-EPI)NonAf POC Glucometer 109 144 80 Random Glucose Calcium Total Bilirubin AST ALT Alkaline Phosphatase Total Protein Albumin 11/10/19 11/10/19 11/10/19 06:33 06:33 06:33 WBC 6.2 RBC 2.81 L Hgb 8.4 L Hct 25.5 L MCV 90.7 MCH 30.0 MCHC 33.1 RDW 16.8 H Plt Count 177 MPV 8.5 Absolute Neuts (auto) 5.0 Neutrophils % 80.1 Lymphocytes % 6.4 L D Monocytes % 11.1 H Eosinophils % 1.7 Basophils % 0.7 Nucleated RBC % 0 PT with INR 14.50 H INR 1.23 H PTT (Actin FS) 35.0 Sodium 138 Potassium 4.5 Chloride 100 Carbon Dioxide 34 H Anion Gap 4 L BUN 32.0 H Creatinine 2.0 H Est GFR (CKD-EPI)AfAm 34.74 Est GFR (CKD-EPI)NonAf 29.97 POC Glucometer Random Glucose 114 H Calcium 7.8 L Total Bilirubin 0.7 AST 14 L ALT < 6 L Alkaline Phosphatase 52 Total Protein 5.2 L Albumin 2.5 L Active Medications Generic Name Dose Route Start Last Admin Trade Name Freq PRN Reason Stop Dose Admin Acetaminophen 650 mg 11/04/19 21:46 11/09/19 17:27 Tylenol - PO 650 mg Q6H PRN Administration Fever Or Pain Amlodipine Besylate 10 mg 11/05/19 10:00 11/10/19 09:31 Norvasc - PO 10 mg DAILY RANJAN Administration Amoxicillin/Clavulanate Potassium 1 tab 11/10/19 17:30 Augmentin - 500mg Tablet PO BID@0800,1730 RANJAN Budesonide/Formoterol Fumarate 2 puff 11/05/19 22:00 11/10/19 09:32 Symbicort 160/4.5mcg - IH 2 puff BID RANJAN Administration Carbidopa/Levodopa 1 combo 11/04/19 22:00 11/10/19 09:31 Sinemet *Cr* 50/200 - PO 1 combo BID RANJAN Administration Carvedilol 25 mg 11/04/19 22:00 11/10/19 09:53 Coreg - PO Not Given BID RANJAN Docusate Sodium 100 mg 11/09/19 12:30 11/10/19 09:32 Colace - PO 100 mg DAILY RANJAN Administration Doxazosin Mesylate 2 mg 11/05/19 22:00 11/09/19 22:36 Cardura - PO 2 mg HS RANJAN Administration Furosemide 80 mg 11/07/19 10:00 11/10/19 09:31 Lasix - PO 80 mg DAILY RANJAN Administration Insulin Aspart 1 vial 11/04/19 16:30 11/10/19 11:42 Novolog Vial Sliding Scale - SQ 4 units ACHS RANJAN Administration Protocol Pantoprazole Sodium 40 mg 11/07/19 22:00 11/10/19 09:29 Protonix Iv IVPUSH 40 mg BID RANJAN Administration Polyethylene Glycol 17 gm 11/08/19 15:00 11/10/19 09:56 Miralax (For Daily Use) - PO Not Given DAILY RANJAN Polyethylene Glycol 255 gm 11/11/19 12:00 Miralax (For Bowel Prep) - PO 11/11/19 12:01 ONCE ONE Ranolazine 500 mg 11/04/19 22:00 11/10/19 09:31 Ranexa - PO 500 mg BID RANJAN Administration Tetrahydrozoline HCl 1 drop 11/06/19 23:56 11/09/19 10:10 Visine - OU 1 drop BID PRN Administration DRY EYES Tiotropium [place] 1 puff 11/05/19 14:45 11/10/19 09:32 Spiriva Respimat IH 1 puff DAILY RANJAN Administration Zinc Oxide 1 applic 11/08/19 14:04 11/09/19 10:10 Desitin Diaper Rash Oint - TP 1 applic ASDIR PRN Administration HYGEINE ASSESSMENT/PLAN: Pt is an 84 y/o male with COPD on 2L, Diastolic CHF, AFib off Eliquis, GERD, HTN, HLD, Parkinson's Disease, CAD with CABGx2, Prostate Ca on RTx, Gastric Adenoma resected around 2015, and ILD, who presented to the ED with shortness of breath and hypoxia. #hypoxia secondary to COPD exacerbation vs CHF exacerbation vs PNA vs aspiration PNA - CXR showed congestive changes and a possible infiltrate - clinically improved, now on home dose of O2 @ 2L - s/p Zosyn 5 days - Augmentin 500mg BID x3 days, day 1 - Lasix 80mg PO daily, consider decreasing dose as pt appears fairly euvolemic - continue home inhalers - pulm following - ID following #normocytic anemia - s/p 1 unit pRBC - Hgb 8.4 - FOBT showed trace blood - GI consulted- pt given option of inpatient or outpatient EGD EUS and colonoscopy given occult blood positive, anemia, and hx of gastric adenoma - today he made the decision to do workup outpatient #constipation, improved - given mineral oil enema with improvement - continue oral bowel regimen #CKD - ANÍBAL resolved, Cr baseline 2.0 #HTN - home carvedilol DVT Ppx SCDs given possible GI bleed FEN PO fluids monitor Hb sodium-controlled diet dispo Pt decided to do GI workup as outpt, now waiting on placement- came from [facility] FULL CODE Visit type - Emergency Visit Emergency Visit: Yes ED Registration Date: 11/04/19 Care time: The patient presented to the Emergency Department on the above date and was hospitalized for further evaluation of their emergent condition. - New Patient This patient is new to me today: Yes Date on this admission: 11/10/19 - Critical Care Critical Care patient: No - Medication Review Med list reviewed for High Risk Meds patients 65 and older: Yes ATTENDING PHYSICIAN STATEMENT I saw and evaluated the patient. I reviewed the resident's note and discussed the case with the resident. I agree with the resident's findings and plan as documented. SUBJECTIVE: OBJECTIVE: ASSESSMENT AND PLAN:
--- NOTE | 2019-11-10 15:46 | PN ---
Teaching Attending Note Name of Resident: Azeb Daugherty ATTENDING PHYSICIAN STATEMENT I saw and evaluated the patient. I reviewed the resident's note and discussed the case with the resident. I agree with the resident's findings and plan as documented. SUBJECTIVE: He is comfortable has no shortness of breath OBJECTIVE: Vital Signs Period Temp Pulse Resp BP Sys/Knutson Pulse Ox Last 24 Hr 97.9 F-98.7 F 55-61 16-20 122-141/38-55 94-99 Patient is comfortable HEENT normal Neck supple no JVD Lungs clear no wheezing Abdomen nontender no organomegaly bowel sounds normal Extremities no edema no cyanosis normal pulses Neurologically he is alert awake oriented, nonfocal Skin no rash noted CBC, BMP 11/10/19 06:33 11/10/19 06:33 ASSESSMENT AND PLAN: 84 y/o M with Hx COPD 2L home, CHF, HTN, HLD, CKD, CAD with 2 vessel disease and intervention, Prostate Ca on radiation AFIB off AC due to high risk of bleed , Parkinson's Disease, GERD, Gastric adenoma, ILD who presents with shortness of breath and hypoxia SOB/hypoxia: Now resolved patient clinically euvolemic Completed 5 days of IV Abx, stop today Continue PO Lasix A. fib not on AC in setting of bleed Continue rate control Anemia: Concern for GI blood Loss Continue PPI, s/p 1 unit PRBC Patient does not want to go for endoscopy and colonoscopy in the hospital. He said he will go outpatient. Discussed with the rn field case manager for possible discharge to rehabilitation. Short-term. Also discussed the patient in detail about future plan of rehabilitation outpatient GI work-up and follow-up with the primary care physician and dry paste supervisor once he comes out of rehabilitation.
[2019-11-10] MEDS: AMOX TR/POT CLAV 500MG/125MG TABLETS (FP) PO SCH (16:50)
[2019-11-10] MEDS: DOXAZOSIN MESYLATE 2 MG TABLET PO SCH (21:47)
[2019-11-10] MEDS: TETRAHYDROZOLINE HCL EYE DROPS OU PRN (21:51)
[2019-11-11] MEDS: INSULIN SLIDING SCALE (NOVOLOG) 1 VIAL SQ SCH ×4 (06:40→21:52)
--- NOTE | 2019-11-11 06:45 | PN ---
Progress Note, Physician History of Present Illness: PULMONARY ALERT,COMFORTABLE,NO DISTRESS - Current Medication List Current Medications: Active Medications Acetaminophen (Tylenol -) 650 mg PO Q6H PRN PRN Reason: Fever Or Pain Last Admin: 11/09/19 17:27 Dose: 650 mg Documented by: Amlodipine Besylate (Norvasc -) 10 mg PO DAILY [facility] Last Admin: 11/10/19 09:31 Dose: 10 mg Documented by: Amoxicillin/Clavulanate Potassium (Augmentin - 500mg Tablet) 1 tab PO BID@0800,1730 [facility] Stop: 11/13/19 08:01 Last Admin: 11/10/19 16:50 Dose: 1 tab Documented by: Budesonide/Formoterol Fumarate (Symbicort 160/4.5mcg -) 2 puff IH BID [facility] Last Admin: 11/10/19 21:50 Dose: 2 puff Documented by: Carbidopa/Levodopa (Sinemet *Cr* 50/200 -) 1 combo PO BID [facility] Last Admin: 11/10/19 21:48 Dose: 1 combo Documented by: Carvedilol (Coreg -) 25 mg PO BID [facility] Last Admin: 11/10/19 21:46 Dose: 25 mg Documented by: Docusate Sodium (Colace -) 100 mg PO DAILY [facility] Last Admin: 11/10/19 09:32 Dose: 100 mg Documented by: Doxazosin Mesylate (Cardura -) 2 mg PO HS [facility] Last Admin: 11/10/19 21:47 Dose: 2 mg Documented by: Furosemide (Lasix -) 80 mg PO DAILY [facility] Last Admin: 11/10/19 09:31 Dose: 80 mg Documented by: Insulin Aspart (Novolog Vial Sliding Scale -) 1 vial SQ [facility]; Protocol Last Admin: 11/11/19 06:40 Dose: Not Given Documented by: Pantoprazole Sodium (Protonix Iv) 40 mg IVPUSH BID [facility] Last Admin: 11/10/19 21:44 Dose: 40 mg Documented by: Polyethylene Glycol (Miralax (For Daily Use) -) 17 gm PO DAILY [facility] Last Admin: 11/10/19 09:56 Dose: Not Given Documented by: Polyethylene Glycol (Miralax (For Bowel Prep) -) 255 gm PO ONCE ONE Stop: 11/11/19 12:01 Ranolazine (Ranexa -) 500 mg PO BID [facility] Last Admin: 11/10/19 21:47 Dose: 500 mg Documented by: Tetrahydrozoline HCl (Visine -) 1 drop OU BID PRN PRN Reason: DRY EYES Last Admin: 11/10/19 21:51 Dose: 1 drop Documented by: Tiotropium [place] (Spiriva Respimat) 1 puff IH DAILY [facility] Last Admin: 11/10/19 09:32 Dose: 1 puff Documented by: Zinc Oxide (Desitin Diaper Rash Oint -) 1 applic TP ASDIR PRN PRN Reason: HYGEINE Last Admin: 11/09/19 10:10 Dose: 1 applic Documented by: - Objective Vital Signs: Vital Signs Temperature 98.0 F 11/11/19 06:00 Pulse Rate 59 L 11/11/19 06:00 Respiratory Rate 18 11/11/19 06:00 Blood Pressure 138/54 L 11/11/19 06:00 O2 Sat by Pulse Oximetry (%) 98 11/11/19 06:00 Constitutional: Yes: Calm, Thin Eyes: Yes: WNL HENT: Yes: WNL Neck: Yes: WNL Cardiovascular: Yes: Regular Rate and Rhythm, S1, S2 Respiratory: Yes: Diminished Gastrointestinal: Yes: Normal Bowel Sounds, Soft Extremities: Yes: WNL Edema: No Labs: CBC, BMP 11/10/19 06:33 Assessment/Plan Problem List - Problems (1) Acute on chronic diastolic (congestive) heart failure Code(s): I50.33 - ACUTE ON CHRONIC DIASTOLIC (CONGESTIVE) HEART FAILURE (2) Respiratory failure Code(s): J96.90 - RESPIRATORY FAILURE, UNSP, UNSP W HYPOXIA OR HYPERCAPNIA Qualifiers: Chronicity: acute Respiratory failure complication: hypoxia Qualified Code(s): J96.01 - Acute respiratory failure with hypoxia (3) Anemia Code(s): D64.9 - ANEMIA, UNSPECIFIED Qualifiers: Anemia type: unspecified type Qualified Code(s): D64.9 - Anemia, unspecified (4) Anemia due to chronic blood loss Code(s): D50.0 - IRON DEFICIENCY ANEMIA SECONDARY TO BLOOD LOSS (CHRONIC) (5) Gastric adenoma Code(s): D13.1 - BENIGN NEOPLASM OF STOMACH (6) Gastric dysplasia Code(s): Q40.3 - CONGENITAL MALFORMATION OF STOMACH, UNSPECIFIED (7) Hypercholesterolemia Code(s): E78.00 - PURE HYPERCHOLESTEROLEMIA, UNSPECIFIED (8) PAF (paroxysmal atrial fibrillation) Code(s): I48.0 - PAROXYSMAL ATRIAL FIBRILLATION (9) Peripheral vascular disease Code(s): I73.9 - PERIPHERAL VASCULAR DISEASE, UNSPECIFIED (10) Pulmonary hypertension Code(s): I27.20 - PULMONARY HYPERTENSION, UNSPECIFIED (11) Pulmonary vascular congestion Code(s): R09.89 - OTH SYMPTOMS AND SIGNS INVOLVING THE CIRC AND RESP SYSTEMS (12) S/P CABG (coronary artery bypass graft) Code(s): Z95.1 - PRESENCE OF AORTOCORONARY BYPASS GRAFT (13) CHF (congestive heart failure) Code(s): I50.9 - HEART FAILURE, UNSPECIFIED Qualifiers: Heart failure type: unspecified Heart failure chronicity: acute on chronic Qualified Code(s): I50.9 - Heart failure, unspecified (14) DM Diabetes mellitus Code(s): E11.9 - TYPE 2 DIABETES MELLITUS WITHOUT COMPLICATIONS (15) Emphysema lung Code(s): J43.9 - EMPHYSEMA, UNSPECIFIED (16) ILD (interstitial lung disease) Code(s): J84.9 - INTERSTITIAL PULMONARY DISEASE, UNSPECIFIED (17) Renal insufficiency Code(s): N28.9 - DISORDER OF KIDNEY AND URETER, UNSPECIFIED (18) Acute hypoxemic respiratory failure Code(s): J96.01 - ACUTE RESPIRATORY FAILURE WITH HYPOXIA Assessment/Plan IMP: Low clinical suspicion of PNA PLAN: Supplemental O2 to maintain saturation Aspiration precautions BD TX Lasix po VTE prophylaxis Daily wts Monitor lytes,renal function,h+h DR SMITH
[2019-11-11 07:54] LABS: HEMATOCRIT 28.1 % (35.4-49); HEMOGLOBIN 9.2 GM/dL (11.7-16.9); MCH 29.8 pg (25.7-33.7); MCHC 32.6 g/dl (32.0-35.9); MEAN CELL VOLUME 91.2 fl (80-96); MEAN PLT VOLUME 8.6 fl (7.5-11.1); PLATELET COUNT 191 K/MM3 (134-434); RBC 3.08 M/mm3 (4.00-5.60); RDW 16.9 % (11.9-15.9); WHITE BLOOD COUNT 6.1 K/mm3 (4.0-10.0)
[2019-11-11] MEDS: AMOX TR/POT CLAV 500MG/125MG TABLETS (FP) PO SCH ×2 (08:45→17:06)
[2019-11-11] MEDS: RANOLAZINE E.R. 500 MG TABLET (FP) PO SCH ×2 (09:45→21:53)
[2019-11-11] MEDS: FUROSEMIDE 40 MG TABLET (FP) PO SCH (09:45)
[2019-11-11] MEDS: DOCUSATE SODIUM 100 MG CAPSULE (FP) PO SCH (09:45)
[2019-11-11] MEDS: PANTOPRAZOLE SODIUM 40 MG VIAL IVPUSH SCH ×2 (09:46→21:53)
[2019-11-11] MEDS: BUDESONIDE/FORMETEROL FUMARATE 160/4.5 mcg INHALER IH SCH ×2 (09:55→21:53)
[2019-11-11] MEDS: POLYETHYLENE GLYCOL 3350 119 GM BTL PO SCH (10:56)
[2019-11-11] MEDS: TIOTROPIUM BROMIDE 2.5 MCG (SPIRIVA) RESPIMAT INHALER IH SCH (10:58)
[2019-11-11] MEDS: CARVEDILOL 25 MG TABLET (FP) PO SCH ×2 (11:08→21:49)
[2019-11-11] MEDS: amLODIPine BESYLATE 10 MG TABLET (FP) PO SCH (11:09)
--- NOTE | 2019-11-11 11:45 | PN ---
Physical Exam: SUBJECTIVE: Patient seen and examined Patient is comfortable afebrile no shortness of breath on rest he is alert awake no distress. OBJECTIVE: Vital Signs Period Temp Pulse Resp BP Sys/Knutson Pulse Ox Last 24 Hr 97.9 F-98.4 F 59-64 18-20 115-149/46-55 97-99 Patient is comfortable HEENT normal Neck supple no JVD Lungs clear no wheezing Abdomen nontender no organomegaly bowel sounds normal Extremities no edema no cyanosis normal pulses Neurologically he is alert awake oriented, nonfocal Skin no rash noted Laboratory Results - last 24 hr 11/07/19 11/11/19 19:00 06:05 WBC 6.1 RBC 3.08 L Hgb 9.2 L Hct 28.1 L MCV 91.2 MCH 29.8 MCHC 32.6 RDW 16.9 H Plt Count 191 MPV 8.6 Blood Type O NEGATIVE Antibody Screen Negative Crossmatch See Detail Active Medications Generic Name Dose Route Start Last Admin Trade Name Freq PRN Reason Stop Dose Admin Acetaminophen 650 mg 11/04/19 21:46 11/09/19 17:27 Tylenol - PO 650 mg Q6H PRN Administration Fever Or Pain Amlodipine Besylate 10 mg 11/05/19 10:00 11/10/19 09:31 Norvasc - PO 10 mg DAILY RANJAN Administration Amoxicillin/Clavulanate Potassium 1 tab 11/10/19 17:30 11/11/19 08:45 Augmentin - 500mg Tablet PO 11/13/19 08:01 1 tab BID@0800,1730 RANJAN Administration Budesonide/Formoterol Fumarate 2 puff 11/05/19 22:00 11/11/19 09:55 Symbicort 160/4.5mcg - IH 2 puff BID RANJAN Administration Carbidopa/Levodopa 1 combo 11/04/19 22:00 11/10/19 21:48 Sinemet *Cr* 50/200 - PO 1 combo BID RANJAN Administration Carvedilol 25 mg 11/04/19 22:00 11/10/19 21:46 Coreg - PO 25 mg BID RANJAN Administration Docusate Sodium 100 mg 11/09/19 12:30 11/11/19 09:45 Colace - PO 100 mg DAILY RANJAN Administration Doxazosin Mesylate 2 mg 11/05/19 22:00 11/10/19 21:47 Cardura - PO 2 mg HS RANJAN Administration Furosemide 80 mg 11/07/19 10:00 11/11/19 09:45 Lasix - PO 80 mg DAILY RANJAN Administration Insulin Aspart 1 vial 11/04/19 16:30 11/11/19 06:40 Novolog Vial Sliding Scale - SQ Not Given ACHS RANJAN Protocol Pantoprazole Sodium 40 mg 11/07/19 22:00 11/11/19 09:46 Protonix Iv IVPUSH 40 mg BID RANJAN Administration Polyethylene Glycol 17 gm 11/08/19 15:00 11/10/19 09:56 Miralax (For Daily Use) - PO Not Given DAILY RANJAN Ranolazine 500 mg 11/04/19 22:00 11/11/19 09:45 Ranexa - PO 500 mg BID RANJAN Administration Tetrahydrozoline HCl 1 drop 11/06/19 23:56 11/10/19 21:51 Visine - OU 1 drop BID PRN Administration DRY EYES Tiotropium [place] 1 puff 11/05/19 14:45 11/10/19 09:32 Spiriva Respimat IH 1 puff DAILY RANJAN Administration Zinc Oxide 1 applic 11/08/19 14:04 11/09/19 10:10 Desitin Diaper Rash Oint - TP 1 applic ASDIR PRN Administration HYGEINE ASSESSMENT/PLAN: 84 y/o M with Hx COPD 2L home, CHF, HTN, HLD, CKD, CAD with 2 vessel disease and intervention, Prostate Ca on radiation AFIB off AC due to high risk of bleed , Parkinson's Disease, GERD, Gastric adenoma, ILD who presents with shortness of breath and hypoxia SOB/hypoxia: Now resolved He is much improved now will continue Lasix oral he is off the antibiotic. Discussed the adult protective caseworker for possible discharge for short-term rehabilitation patient agreed with that. A. fib not on AC in setting of bleed Continue rate control Anemia: Concern for GI blood Loss Continue PPI, s/p 1 unit PRBC Patient does not want to go for endoscopy and colonoscopy in the hospital. He said he will go outpatient. Discussed with the adult protective caseworker for possible discharge to rehabilitation. Short-term. Also discussed the patient in detail about future plan of rehabilitation outpatient GI work-up and follow-up with the primary care physician and director of graduate medical education once he comes out of rehabilitation. Visit type - Emergency Visit Emergency Visit: Yes ED Registration Date: 11/04/19 Care time: The patient presented to the Emergency Department on the above date and was hospitalized for further evaluation of their emergent condition. - New Patient This patient is new to me today: No - Critical Care Critical Care patient: No - Discharge Referral Referred to [facility] No - Medication Review Med list reviewed for High Risk Meds patients 65 and older: Yes
[2019-11-11] MEDS ORDERED: POLYETHYLENE GLYCOL 3350 255 GM BTL PO ONE (12:00)
[2019-11-11] MEDS: TETRAHYDROZOLINE HCL EYE DROPS OU PRN (17:32)
[2019-11-11] MEDS ORDERED: PT OWN MED DRAWER 7, Y5N ONE ×2 (20:53→21:47)
[2019-11-11] MEDS: DOXAZOSIN MESYLATE 2 MG TABLET PO SCH (21:53)
[2019-11-12] MEDS: INSULIN SLIDING SCALE (NOVOLOG) 1 VIAL SQ SCH ×4 (06:00→22:30)
[2019-11-12 07:11] LABS: BLOOD UREA NITROGEN 31.3 mg/dL (7-18); CALCIUM 8.1 mg/dL (8.5-10.1); CREATININE 1.7 mg/dL (0.55-1.3); POTASSIUM 4.7 mmol/L (3.5-5.1)
--- NOTE | 2019-11-12 08:49 | PN ---
Teaching Attending Note Name of Resident: Baljit Strong ATTENDING PHYSICIAN STATEMENT I saw and evaluated the patient. I reviewed the resident's note and discussed the case with the resident. I agree with the resident's findings and plan as documented. SUBJECTIVE: Patient is feeling weak , asking to go to rehab. OBJECTIVE: Vital Signs Temperature 52 F L 11/12/19 08:28 Pulse Rate 74 11/12/19 08:28 Respiratory Rate 20 11/12/19 08:28 Blood Pressure 134/52 L 11/12/19 08:28 O2 Sat by Pulse Oximetry (%) 97 11/12/19 08:28 PE: per resident's note CBCD WBC 6.1 K/mm3 (4.0-10.0) 11/11/19 06:05 RBC 3.08 M/mm3 (4.00-5.60) L 11/11/19 06:05 Hgb 9.2 GM/dL (11.7-16.9) L 11/11/19 06:05 Hct 28.1 % (35.4-49) L 11/11/19 06:05 MCV 91.2 fl (80-96) 11/11/19 06:05 MCHC 32.6 g/dl (32.0-35.9) 11/11/19 06:05 RDW 16.9 % (11.9-15.9) H 11/11/19 06:05 Plt Count 191 K/MM3 (134-434) 11/11/19 06:05 MPV 8.6 fl (7.5-11.1) 11/11/19 06:05 CMP Sodium 139 mmol/L (136-145) 11/12/19 06:05 Potassium 4.7 mmol/L (3.5-5.1) 11/12/19 06:05 Chloride 99 mmol/L (98-107) 11/12/19 06:05 Carbon Dioxide 34 mmol/L (21-32) H 11/12/19 06:05 Anion Gap 6 MMOL/L (8-16) L 11/12/19 06:05 BUN 31.3 mg/dL (7-18) H 11/12/19 06:05 Creatinine 1.7 mg/dL (0.55-1.3) H 11/12/19 06:05 Random Glucose 93 mg/dL (74-106) 11/12/19 06:05 Calcium 8.1 mg/dL (8.5-10.1) L 11/12/19 06:05 Total Bilirubin 0.7 mg/dL (0.2-1) 11/10/19 06:33 AST 14 U/L (15-37) L 11/10/19 06:33 ALT < 6 U/L (13-61) L 11/10/19 06:33 Alkaline Phosphatase 52 U/L (45-117) 11/10/19 06:33 Total Protein 5.2 g/dl (6.4-8.2) L 11/10/19 06:33 Albumin 2.5 g/dl (3.4-5.0) L 11/10/19 06:33 CARDIAC ENZYMES Creatine Kinase 51 U/L (26-308) 11/04/19 09:49 Troponin I 0.05 ng/ml (0.00-0.05) 11/04/19 09:49 Current Medications Generic Name Dose Route Start Last Admin Trade Name Lalitq PRN Reason Stop Dose Admin Acetaminophen 650 mg 11/04/19 21:46 11/09/19 17:27 Tylenol - PO 650 mg Q6H PRN Administration Fever Or Pain Amlodipine Besylate 10 mg 11/05/19 10:00 11/11/19 11:09 Norvasc - PO 10 mg DAILY RANJAN Administration Amoxicillin/Clavulanate Potassium 1 tab 11/10/19 17:30 11/11/19 17:06 Augmentin - 500mg Tablet PO 11/13/19 08:01 1 tab BID@0800,1730 RANJAN Administration Budesonide/Formoterol Fumarate 2 puff 11/05/19 22:00 11/11/19 21:53 Symbicort 160/4.5mcg - IH 2 puff BID RANJAN Administration Carbidopa/Levodopa 1 combo 11/04/19 22:00 11/11/19 21:53 Sinemet *Cr* 50/200 - PO 1 combo BID RANJAN Administration Carvedilol 25 mg 11/04/19 22:00 11/11/19 21:49 Coreg - PO Not Given BID RANJAN Docusate Sodium 100 mg 11/09/19 12:30 11/11/19 09:45 Colace - PO 100 mg DAILY RANJAN Administration Doxazosin Mesylate 2 mg 11/05/19 22:00 11/11/19 21:53 Cardura - PO 2 mg HS RANJAN Administration Furosemide 80 mg 11/07/19 10:00 11/11/19 09:45 Lasix - PO 80 mg DAILY RANJAN Administration Insulin Aspart 1 vial 11/04/19 16:30 11/12/19 06:00 Novolog Vial Sliding Scale - SQ Not Given ACHS RANJAN Protocol Pantoprazole Sodium 40 mg 11/07/19 22:00 11/11/19 21:53 Protonix Iv IVPUSH 40 mg BID RANJAN Administration Polyethylene Glycol 17 gm 11/08/19 15:00 11/11/19 10:56 Miralax (For Daily Use) - PO 17 gm DAILY RANJAN Administration Ranolazine 500 mg 11/04/19 22:00 11/11/19 21:53 Ranexa - PO 500 mg BID RANJAN Administration Tetrahydrozoline HCl 1 drop 11/06/19 23:56 11/11/19 17:32 Visine - OU 1 drop BID PRN Administration DRY EYES Tiotropium [place] 1 puff 11/05/19 14:45 11/11/19 10:58 Spiriva Respimat IH 1 puff DAILY RANJAN Administration Zinc Oxide 1 applic 11/08/19 14:04 11/09/19 10:10 Desitin Diaper Rash Oint - TP 1 applic ASDIR PRN Administration HYGEINE Home Medications Medication Instructions Recorded Amlodipine Besylate [Norvasc -] 10 mg PO DAILY 11/04/19 Apixaban [Eliquis] 2.5 mg PO BID 11/04/19 Budesonide/Formoterol Fumarate 10.2 gm IH ASDIR 11/04/19 [Budesonide-Formoterol 160-4.5] Carbidopa/Levodopa *Cr* 50/200 1 combo PO TID 11/04/19 [Sinemet *Cr* 50/200 -] Carvedilol [Coreg -] 25 mg PO BID 11/04/19 Empagliflozin [Jardiance] 25 mg PO DAILY 11/04/19 Pantoprazole Sodium [Protonix] 40 mg PO DAILY 11/04/19 Ranolazine [Ranexa] 500 mg PO BID 11/04/19 Doxazosin Mesylate 2 mg PO DAILY 11/05/19 Glimepiride [Amaryl -] 1 mg PO DAILY 11/05/19 Tiotropium [place] [Spiriva] 1 inh IH DAILY 11/05/19 hydrALAZINE HCL [Apresoline -] 25 mg PO BID 11/05/19 Microbiology 11/04/19 09:49 Blood - Peripheral Venous Blood Culture - Final NO GROWTH AFTER 5 DAYS INCUBATION 11/04/19 09:49 Blood - Peripheral Venous Blood Culture - Final NO GROWTH AFTER 5 DAYS INCUBATION 11/05/19 13:15 Sputum - Expectorated Gram Stain - Final 11/05/19 13:15 Sputum - Expectorated Sputum Culture - Final NORMAL RESPIRATORY NELSON 11/04/19 21:00 Urine - Urine Clean Catch Urine Culture - Final NO GROWTH OBTAINED 11/05/19 10:51 Urine For Antigen Detection Legionella Antigen - Final 11/05/19 10:51 Urine For Antigen Detection Streptococcus pneumoniae Antigen (M - Final EKG: SR,rate of 66, LAD, i feriir infarct age undetermined. CXR: s/p sternotomy, large heart, congestive changes, possible infiltrate superimposed. blunting right angle. ASSESSMENT AND PLAN: This patient is an 84yom with Pmhx of HTN , HLD, CKD, CAD sp CABG x 2 vessels, carotid stenosis, CHF, Afib, Parkinson disease, prostate cancer on radiation therapy, COPD on 2 liters NC at home, possible ILD , recurrent pneumonias who presented with acute diastolic CHF exacerbation with acute hypoxic respiratory failure #Acute hypoxic respiratory failure: improved continue home oxygen , on Bipap continue prn #Possible infiltrate vs. aspiration pneumonia : ewing cx as above, s/p Zosyn , now on Augmentin 500mg po bid #Acute on chronic diastolic CHF exacerbation: s/p IV lasix and coreg continue #Acute on chronic kidney injury: s/p renally dosed zosyn, now on augmentin 500mg bid #Atrial fibrillation off of AC : off AC due to hemoptysis , continue Coreg #Hx of Acute blood loss with hemoptysis which was aggrevated by Luigi. #Hx of chronic COPD on 2 liter oxygen continue #Hx of HTN : controlled on Norvasc ,coreg continue #Hx of T2DM: SS with coverage , patient is Jardiance at home, on hold here since CrCl is less than 30 #Hx of prostate cancer with hx of urinary retention , on Flomax continue #Hx of dysplastic gastric polyp #Hx of Parkinson's disease : continue Sinemet COVID PCR swab DVT Px: SCDs, off Ac due to high risk for bleed dc to rehab when bed is available
[2019-11-12] MEDS ORDERED: PT OWN MED DRAWER 7, Y5N ONE ×4 (08:53→22:36)
[2019-11-12] MEDS: AMOX TR/POT CLAV 500MG/125MG TABLETS (FP) PO SCH ×2 (08:56→16:55)
[2019-11-12] MEDS: CARVEDILOL 25 MG TABLET (FP) PO SCH ×2 (09:00→21:59)
[2019-11-12] MEDS: FUROSEMIDE 40 MG TABLET (FP) PO SCH (09:00)
[2019-11-12] MEDS: PANTOPRAZOLE SODIUM 40 MG VIAL IVPUSH SCH ×2 (09:00→22:30)
[2019-11-12] MEDS: amLODIPine BESYLATE 10 MG TABLET (FP) PO SCH (09:01)
[2019-11-12] MEDS: BUDESONIDE/FORMETEROL FUMARATE 160/4.5 mcg INHALER IH SCH ×2 (09:01→22:31)
[2019-11-12] MEDS: RANOLAZINE E.R. 500 MG TABLET (FP) PO SCH ×2 (09:01→22:30)
[2019-11-12] MEDS: TIOTROPIUM BROMIDE 2.5 MCG (SPIRIVA) RESPIMAT INHALER IH SCH (09:01)
[2019-11-12] MEDS: DOCUSATE SODIUM 100 MG CAPSULE (FP) PO SCH (09:01)
[2019-11-12] MEDS: POLYETHYLENE GLYCOL 3350 119 GM BTL PO SCH (09:05)
--- NOTE | 2019-11-12 11:59 | PN ---
Progress Note (short form) - Note Progress Note: D/W Dr. Gilman, who was covering over weekend. Patient refused endoscopic evaluation. Can follow-up at [facility] (GI Dr. Devan Cedeno) as outpatient for follow-up. Recall as needed Problem List - Problems (1) Anemia Code(s): D64.9 - ANEMIA, UNSPECIFIED Qualifiers: Anemia type: unspecified type Qualified Code(s): D64.9 - Anemia, unspecified
[2019-11-12 12:34] VITALS: BMI 19.3
--- NOTE | 2019-11-12 12:52 | PN ---
Progress Note, Physician History of Present Illness: Pt seen and examined at bedside. He is awake and alert. He denies shortness of breath. - Current Medication List Current Medications: Active Medications Acetaminophen (Tylenol -) 650 mg PO Q6H PRN PRN Reason: Fever Or Pain Last Admin: 11/09/19 17:27 Dose: 650 mg Documented by: Amlodipine Besylate (Norvasc -) 10 mg PO DAILY [facility] Last Admin: 11/12/19 09:01 Dose: 10 mg Documented by: Amoxicillin/Clavulanate Potassium (Augmentin - 500mg Tablet) 1 tab PO BID@0800,1730 [facility] Stop: 11/13/19 08:01 Last Admin: 11/12/19 08:56 Dose: 1 tab Documented by: Budesonide/Formoterol Fumarate (Symbicort 160/4.5mcg -) 2 puff IH BID [facility] Last Admin: 11/12/19 09:01 Dose: 2 puff Documented by: Carbidopa/Levodopa (Sinemet *Cr* 50/200 -) 1 combo PO BID [facility] Last Admin: 11/12/19 09:01 Dose: 1 combo Documented by: Carvedilol (Coreg -) 25 mg PO BID [facility] Last Admin: 11/12/19 09:00 Dose: Not Given Documented by: Docusate Sodium (Colace -) 100 mg PO DAILY [facility] Last Admin: 11/12/19 09:01 Dose: 100 mg Documented by: Doxazosin Mesylate (Cardura -) 2 mg PO HS [facility] Last Admin: 11/11/19 21:53 Dose: 2 mg Documented by: Furosemide (Lasix -) 80 mg PO DAILY [facility] Last Admin: 11/12/19 09:00 Dose: 80 mg Documented by: Insulin Aspart (Novolog Vial Sliding Scale -) 1 vial SQ [facility]; Protocol Last Admin: 11/12/19 11:56 Dose: 2 units Documented by: Pantoprazole Sodium (Protonix Iv) 40 mg IVPUSH BID [facility] Last Admin: 11/12/19 09:00 Dose: 40 mg Documented by: Polyethylene Glycol (Miralax (For Daily Use) -) 17 gm PO DAILY [facility] Last Admin: 11/12/19 09:05 Dose: 17 gm Documented by: Ranolazine (Ranexa -) 500 mg PO BID [facility] Last Admin: 11/12/19 09:01 Dose: 500 mg Documented by: Tetrahydrozoline HCl (Visine -) 1 drop OU BID PRN PRN Reason: DRY EYES Last Admin: 11/11/19 17:32 Dose: 1 drop Documented by: Tiotropium [place] (Spiriva Respimat) 1 puff IH DAILY [facility] Last Admin: 11/12/19 09:01 Dose: 1 puff Documented by: Zinc Oxide (Desitin Diaper Rash Oint -) 1 applic TP ASDIR PRN PRN Reason: HYGEINE Last Admin: 11/09/19 10:10 Dose: 1 applic Documented by: - Objective Vital Signs: Vital Signs Temperature 52 F L 11/12/19 08:28 Pulse Rate 74 11/12/19 08:28 Respiratory Rate 20 11/12/19 08:28 Blood Pressure 134/52 L 11/12/19 08:28 O2 Sat by Pulse Oximetry (%) 97 11/12/19 09:00 Constitutional: Yes: Calm Eyes: Yes: Conjunctiva Clear HENT: Yes: Atraumatic Neck: Yes: Supple Cardiovascular: Yes: S1, S2 Respiratory: Yes: CTA Bilaterally, On Nasal O2 Gastrointestinal: Yes: Normal Bowel Sounds, Soft Genitourinary: Yes: WNL Musculoskeletal: Yes: WNL Neurological: Yes: Confusion Psychiatric: Yes: Oriented Labs: CBC, BMP 11/11/19 06:05 11/12/19 06:05 INR, PTT INR 1.23 (0.83-1.09) H 11/10/19 06:33 Problem List - Problems (1) Acute on chronic diastolic (congestive) heart failure Code(s): I50.33 - ACUTE ON CHRONIC DIASTOLIC (CONGESTIVE) HEART FAILURE (2) ILD (interstitial lung disease) Code(s): J84.9 - INTERSTITIAL PULMONARY DISEASE, UNSPECIFIED Assessment/Plan Current Medications Generic Name Dose Route Start Last Admin Trade Name Freq PRN Reason Stop Dose Admin Acetaminophen 650 mg 11/04/19 21:46 11/09/19 17:27 Tylenol - PO 650 mg Q6H PRN Administration Fever Or Pain Amlodipine Besylate 10 mg 11/05/19 10:00 11/12/19 09:01 Norvasc - PO 10 mg DAILY [facility] Administration Amoxicillin/Clavulanate Potassium 1 tab 11/10/19 17:30 08/10/20 08:56 Augmentin - 500mg Tablet PO 11/13/19 08:01 1 tab BID@0800,1730 [facility] Administration Budesonide/Formoterol Fumarate 2 puff 11/05/19 22:00 11/12/19 09:01 Symbicort 160/4.5mcg - IH 2 puff BID [facility] Administration Carbidopa/Levodopa 1 combo 11/04/19 22:00 11/12/19 09:01 Sinemet *Cr* 50/200 - PO 1 combo BID [facility] Administration Carvedilol 25 mg 11/04/19 22:00 11/12/19 09:00 Coreg - PO Not Given BID [facility] Docusate Sodium 100 mg 11/09/19 12:30 11/12/19 09:01 Colace - PO 100 mg DAILY [facility] Administration Doxazosin Mesylate 2 mg 11/05/19 22:00 11/11/19 21:53 Cardura - PO 2 mg HS [facility] Administration Furosemide 80 mg 11/07/19 10:00 11/12/19 09:00 Lasix - PO 80 mg DAILY [facility] Administration Insulin Aspart 1 vial 11/04/19 16:30 11/12/19 11:56 Novolog Vial Sliding Scale - SQ 2 units ACHS [facility] Administration Protocol Pantoprazole Sodium 40 mg 11/07/19 22:00 11/12/19 09:00 Protonix Iv IVPUSH 40 mg BID [facility] Administration Polyethylene Glycol 17 gm 11/08/19 15:00 11/12/19 09:05 Miralax (For Daily Use) - PO 17 gm DAILY [facility] Administration Ranolazine 500 mg 11/04/19 22:00 11/12/19 09:01 Ranexa - PO 500 mg BID [facility] Administration Tetrahydrozoline HCl 1 drop 11/06/19 23:56 11/11/19 17:32 Visine - OU 1 drop BID PRN Administration DRY EYES Tiotropium [place] 1 puff 11/05/19 14:45 11/12/19 09:01 Spiriva Respimat IH 1 puff DAILY [facility] Administration Zinc Oxide 1 applic 11/08/19 14:04 11/09/19 10:10 Desitin Diaper Rash Oint - TP 1 applic ASDIR PRN Administration HYGEINE Impression 1. ckd 2. anemia 3. chf 4. hc hemoptysis 5. ILD 6. cad 7. htn 8. a-fib 9. cva 10. 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
--- NOTE | 2019-11-12 13:47 | PN ---
Progress Note (short form) - Note Progress Note: PULMONARY Still some shortness of breath. No cough or chest pain. Vital Signs Period Temp Pulse Resp BP Sys/Knutson Pulse Ox Last 24 Hr 52 F-99.0 F 57-74 18-20 134-157/43-62 96-97 Gen: NAD at rest Heart: RRR Lung: decreased breath sounds at the bases Abd: soft, nontender Ext: no edema CBC, BMP 11/11/19 06:05 11/12/19 06:05 Active Medications Acetaminophen (Tylenol -) 650 mg PO Q6H PRN PRN Reason: Fever Or Pain Last Admin: 11/09/19 17:27 Dose: 650 mg Documented by: Amlodipine Besylate (Norvasc -) 10 mg PO DAILY [facility] Last Admin: 11/12/19 09:01 Dose: 10 mg Documented by: Amoxicillin/Clavulanate Potassium (Augmentin - 500mg Tablet) 1 tab PO BID@0800,1730 [facility] Stop: 11/13/19 08:01 Last Admin: 11/12/19 08:56 Dose: 1 tab Documented by: Budesonide/Formoterol Fumarate (Symbicort 160/4.5mcg -) 2 puff IH BID [facility] Last Admin: 11/12/19 09:01 Dose: 2 puff Documented by: Carbidopa/Levodopa (Sinemet *Cr* 50/200 -) 1 combo PO BID [facility] Last Admin: 11/12/19 09:01 Dose: 1 combo Documented by: Carvedilol (Coreg -) 25 mg PO BID [facility] Last Admin: 11/12/19 09:00 Dose: Not Given Documented by: Docusate Sodium (Colace -) 100 mg PO DAILY [facility] Last Admin: 11/12/19 09:01 Dose: 100 mg Documented by: Doxazosin Mesylate (Cardura -) 2 mg PO HS [facility] Last Admin: 11/11/19 21:53 Dose: 2 mg Documented by: Furosemide (Lasix -) 80 mg PO DAILY [facility] Last Admin: 11/12/19 09:00 Dose: 80 mg Documented by: Insulin Aspart (Novolog Vial Sliding Scale -) 1 vial SQ [facility]; Protocol Last Admin: 11/12/19 11:56 Dose: 2 units Documented by: Pantoprazole Sodium (Protonix Iv) 40 mg IVPUSH BID [facility] Last Admin: 11/12/19 09:00 Dose: 40 mg Documented by: Polyethylene Glycol (Miralax (For Daily Use) -) 17 gm PO DAILY [facility] Last Admin: 11/12/19 09:05 Dose: 17 gm Documented by: Ranolazine (Ranexa -) 500 mg PO BID [facility] Last Admin: 11/12/19 09:01 Dose: 500 mg Documented by: Tetrahydrozoline HCl (Visine -) 1 drop OU BID PRN PRN Reason: DRY EYES Last Admin: 11/11/19 17:32 Dose: 1 drop Documented by: Tiotropium [place] (Spiriva Respimat) 1 puff IH DAILY [facility] Last Admin: 11/12/19 09:01 Dose: 1 puff Documented by: Zinc Oxide (Desitin Diaper Rash Oint -) 1 applic TP ASDIR PRN PRN Reason: HYGEINE Last Admin: 11/09/19 10:10 Dose: 1 applic Documented by: A/P Acute on Chronic Renal Failure Interstitial Lung Disease CHF CAD Atrial Fibrillation HTN h/o CVA - continue lasix - monitor urine output, creatinine - O2 to keep SpO2 >90% - rate control - inhaled bronchodilators - DVT prophylaxis
[2019-11-12] MEDS: TETRAHYDROZOLINE HCL EYE DROPS OU PRN ×2 (14:17→22:33)
--- NOTE | 2019-11-12 15:17 | PN ---
Physical Exam: SUBJECTIVE: Patient seen and examined at bedside. The patent denies fever/chills and shortness of breath. He reports feeling well enough to leave today. The patient is pending a 2nd COVID test so that he can go to [facility]. OBJECTIVE: Vital Signs Period Temp Pulse Resp BP Sys/Knutson Pulse Ox Last 24 Hr 97.9 F-99.0 F 52-65 18-20 134-157/47-62 96-98 GENERAL: The patient is awake, alert, and fully oriented, in no acute distress. HEAD: Normal with no signs of trauma. EYES: PERRL, extraocular movements intact. No ptosis. ENT: Ears normal, nares patent, oropharynx clear without exudates, moist mucous membranes. Moderately large tongue. NECK: Trachea midline, full range of motion, supple. LUNGS: Breath sounds equal, clear to auscultation bilaterally, no wheezes, no crackles, no accessory muscle use. HEART: Regular rate and rhythm, S1, S2 without murmur, rub or gallop. ABDOMEN: Soft, nontender, nondistended, normoactive bowel sounds, no guarding, no rebound, no masses. EXTREMITIES: 2+ pulses, warm, well-perfused, no edema. NEUROLOGICAL: slurred speech, gait not observed. speaks Turkish. PSYCH: Normal mood, normal affect. SKIN: Warm, dry, normal turgor. Nails pale/blanched. Laboratory Results - last 24 hr 11/11/19 11/12/19 21:52 06:05 Sodium 139 Potassium 4.7 Chloride 99 Carbon Dioxide 34 H Anion Gap 6 L BUN 31.3 H Creatinine 1.7 H Est GFR (CKD-EPI)AfAm 42.28 Est GFR (CKD-EPI)NonAf 36.48 POC Glucometer 141 Random Glucose 93 Calcium 8.1 L Active Medications Generic Name Dose Route Start Last Admin Trade Name Freq PRN Reason Stop Dose Admin Acetaminophen 650 mg 11/04/19 21:46 11/09/19 17:27 Tylenol - PO 650 mg Q6H PRN Administration Fever Or Pain Amlodipine Besylate 10 mg 11/05/19 10:00 11/12/19 09:01 Norvasc - PO 10 mg DAILY [facility] Administration Amoxicillin/Clavulanate Potassium 1 tab 11/10/19 17:30 11/12/19 08:56 Augmentin - 500mg Tablet PO 11/13/19 08:01 1 tab BID@0800,1730 [facility] Administration Budesonide/Formoterol Fumarate 2 puff 11/05/19 22:00 11/12/19 09:01 Symbicort 160/4.5mcg - IH 2 puff BID [facility] Administration Carbidopa/Levodopa 1 combo 11/04/19 22:00 11/12/19 09:01 Sinemet *Cr* 50/200 - PO 1 combo BID [facility] Administration Carvedilol 25 mg 11/04/19 22:00 11/12/19 09:00 Coreg - PO Not Given BID [facility] Docusate Sodium 100 mg 11/09/19 12:30 11/12/19 09:01 Colace - PO 100 mg DAILY [facility] Administration Doxazosin Mesylate 2 mg 11/05/19 22:00 11/11/19 21:53 Cardura - PO 2 mg HS [facility] Administration Furosemide 80 mg 11/07/19 10:00 11/12/19 09:00 Lasix - PO 80 mg DAILY [facility] Administration Insulin Aspart 1 vial 11/04/19 16:30 11/12/19 11:56 Novolog Vial Sliding Scale - SQ 2 units ACHS [facility] Administration Protocol Pantoprazole Sodium 40 mg 11/07/19 22:00 11/12/19 09:00 Protonix Iv IVPUSH 40 mg BID [facility] Administration Polyethylene Glycol 17 gm 11/08/19 15:00 11/12/19 09:05 Miralax (For Daily Use) - PO 17 gm DAILY [facility] Administration Ranolazine 500 mg 11/04/19 22:00 11/12/19 09:01 Ranexa - PO 500 mg BID [facility] Administration Tetrahydrozoline HCl 1 drop 11/06/19 23:56 11/12/19 14:17 Visine - OU 1 drop BID PRN Administration DRY EYES Tiotropium [place] 1 puff 11/05/19 14:45 11/12/19 09:01 Spiriva Respimat IH 1 puff DAILY [facility] Administration Zinc Oxide 1 applic 11/08/19 14:04 11/09/19 10:10 Desitin Diaper Rash Oint - TP 1 applic ASDIR PRN Administration HYGEINE ASSESSMENT/PLAN: 84 year old male patient with past medical history that includes COPD on 2 lpm, Diastolic CHF, AFib off Eliquis, GERD, HTN, HLD, Parkinson's Disease, CAD with CABGx2, Prostate Ca on RTx, Gastric Adenoma resected around 2016, and ILD, who presented to the ED with shortness of breath and hypoxia. 1. Normocytic Anemia s/p 1 unit pRBC - Hgb 9.2 - MCV 91.2 - FOBT showed trace blood - Monitoring the patient's Hgb 2. Hypoxia secondary to COPD exacerbation vs CHF exacerbation vs PNA vs aspiration PNA - resolved - PMHx of COPD on 2 lpm home O2 - PMHx of diastolic CHF - CXR showed congestive changes and a possible infiltrate - Physical exam shows a large tongue with slurring of speech - BNP was 13,375 on admission - CXR shows that the patient has a large heart - 99% oxygen saturation on 2 lpm - Lasix 3. Possible ANÍBAL on CKD - resolved - Creatinine 1.7 - Baseline Creatinine appears to be 2.1 to 2.7 based on previous admissions 4. HTN - Coreg and Norvasc 5. Parkinson's Disease - Sinemet # FEN - Monitoring Electrolytes. Sodium Controlled Diet. DVT PPx - SCDs bilaterally Dispo - Discharge to [facility] once the second COVID test comes back. Visit type - Emergency Visit Emergency Visit: Yes ED Registration Date: 11/04/19 Care time: The patient presented to the Emergency Department on the above date and was hospitalized for further evaluation of their emergent condition. - New Patient This patient is new to me today: No - Critical Care Critical Care patient: No - Discharge Referral Referred to [facility] Med [facility] No - Medication Review Med list reviewed for High Risk Meds patients 65 and older: Yes ATTENDING PHYSICIAN STATEMENT I saw and evaluated the patient. I reviewed the resident's note and discussed the case with the resident. I agree with the resident's findings and plan as documented. SUBJECTIVE: OBJECTIVE: ASSESSMENT AND PLAN:
[2019-11-12] MEDS ORDERED: INSULIN SLIDING SCALE (NOVOLOG) 1 VIAL SQ ONE (16:46)
[2019-11-12] MEDS: ACETAMINOPHEN 325 MG TABLET (FP) PO PRN (16:55)
[2019-11-12] MEDS: DOXAZOSIN MESYLATE 2 MG TABLET PO SCH (22:30)
[2019-11-13] MEDS: INSULIN SLIDING SCALE (NOVOLOG) 1 VIAL SQ SCH ×2 (06:31→12:05)
[2019-11-13] MEDS: AMOX TR/POT CLAV 500MG/125MG TABLETS (FP) PO SCH (08:20)
[2019-11-13] MEDS ORDERED: PT OWN MED DRAWER 7, Y5N ONE (08:52)
[2019-11-13] MEDS: DOCUSATE SODIUM 100 MG CAPSULE (FP) PO SCH (09:16)
[2019-11-13] MEDS: RANOLAZINE E.R. 500 MG TABLET (FP) PO SCH (09:17)
[2019-11-13] MEDS: POLYETHYLENE GLYCOL 3350 119 GM BTL PO SCH (09:18)
[2019-11-13] MEDS: FUROSEMIDE 40 MG TABLET (FP) PO SCH (09:18)
[2019-11-13] MEDS: CARVEDILOL 25 MG TABLET (FP) PO SCH (09:18)
[2019-11-13] MEDS: BUDESONIDE/FORMETEROL FUMARATE 160/4.5 mcg INHALER IH SCH (09:19)
[2019-11-13] MEDS: TIOTROPIUM BROMIDE 2.5 MCG (SPIRIVA) RESPIMAT INHALER IH SCH (09:19)
[2019-11-13] MEDS: PANTOPRAZOLE SODIUM 40 MG VIAL IVPUSH SCH (09:19)
[2019-11-13] MEDS: COD LIVER OIL/ZINC OXIDE PASTE 56 GM TUBE TP PRN (09:19)
[2019-11-13] MEDS: TETRAHYDROZOLINE HCL EYE DROPS OU PRN (09:19)
[2019-11-13] MEDS: amLODIPine BESYLATE 10 MG TABLET (FP) PO SCH (09:19)
--- NOTE | 2019-11-13 10:12 | PN ---
Progress Note, Physician History of Present Illness: PULMONARY ALERT,COMFORTABLE, AMBULATING WITH PT,-RESP DISTRESS,-CP - Current Medication List Current Medications: Active Medications Acetaminophen (Tylenol -) 650 mg PO Q6H PRN PRN Reason: Fever Or Pain Last Admin: 11/12/19 16:55 Dose: 650 mg Documented by: Amlodipine Besylate (Norvasc -) 10 mg PO DAILY [facility] Last Admin: 11/13/19 09:19 Dose: 10 mg Documented by: Budesonide/Formoterol Fumarate (Symbicort 160/4.5mcg -) 2 puff IH BID [facility] Last Admin: 11/13/19 09:19 Dose: 2 puff Documented by: Carbidopa/Levodopa (Sinemet *Cr* 50/200 -) 1 combo PO BID [facility] Last Admin: 11/13/19 09:17 Dose: 1 combo Documented by: Carvedilol (Coreg -) 25 mg PO BID [facility] Last Admin: 11/13/19 09:18 Dose: Not Given Documented by: Docusate Sodium (Colace -) 100 mg PO DAILY [facility] Last Admin: 11/13/19 09:16 Dose: 100 mg Documented by: Doxazosin Mesylate (Cardura -) 2 mg PO HS [facility] Last Admin: 11/12/19 22:30 Dose: 2 mg Documented by: Furosemide (Lasix -) 80 mg PO DAILY [facility] Last Admin: 11/13/19 09:18 Dose: 80 mg Documented by: Insulin Aspart (Novolog Vial Sliding Scale -) 1 vial SQ [facility]; Protocol Last Admin: 11/13/19 06:31 Dose: Not Given Documented by: Pantoprazole Sodium (Protonix Iv) 40 mg IVPUSH BID [facility] Last Admin: 11/13/19 09:19 Dose: 40 mg Documented by: Polyethylene Glycol (Miralax (For Daily Use) -) 17 gm PO DAILY [facility] Last Admin: 11/13/19 09:18 Dose: 17 gm Documented by: Ranolazine (Ranexa -) 500 mg PO BID [facility] Last Admin: 11/13/19 09:17 Dose: 500 mg Documented by: Tetrahydrozoline HCl (Visine -) 1 drop OU BID PRN PRN Reason: DRY EYES Last Admin: 11/13/19 09:19 Dose: 1 drop Documented by: Tiotropium [place] (Spiriva Respimat) 1 puff IH DAILY [facility] Last Admin: 11/13/19 09:19 Dose: 1 puff Documented by: Zinc Oxide (Desitin Diaper Rash Oint -) 1 applic TP ASDIR PRN PRN Reason: HYGEINE Last Admin: 11/13/19 09:19 Dose: 1 applic Documented by: - Objective Vital Signs: Vital Signs Temperature 98.6 F 11/13/19 09:24 Pulse Rate 58 L 11/13/19 09:24 Respiratory Rate 16 11/13/19 09:24 Blood Pressure 145/55 L 11/13/19 09:24 O2 Sat by Pulse Oximetry (%) 97 11/13/19 09:24 Constitutional: Yes: Calm, Thin Eyes: Yes: WNL HENT: Yes: WNL Neck: Yes: WNL Cardiovascular: Yes: Regular Rate and Rhythm, S1, S2 Respiratory: Yes: CTA Bilaterally Gastrointestinal: Yes: Normal Bowel Sounds, Soft Extremities: Yes: WNL Edema: No Labs: CBC, BMP Assessment/Plan Problem List - Problems (1) Acute on chronic diastolic (congestive) heart failure Code(s): I50.33 - ACUTE ON CHRONIC DIASTOLIC (CONGESTIVE) HEART FAILURE (2) Respiratory failure Code(s): J96.90 - RESPIRATORY FAILURE, UNSP, UNSP W HYPOXIA OR HYPERCAPNIA Qualifiers: Chronicity: acute Respiratory failure complication: hypoxia Qualified Code(s): J96.01 - Acute respiratory failure with hypoxia (3) Anemia Code(s): D64.9 - ANEMIA, UNSPECIFIED Qualifiers: Anemia type: unspecified type Qualified Code(s): D64.9 - Anemia, unspecified (4) Anemia due to chronic blood loss Code(s): D50.0 - IRON DEFICIENCY ANEMIA SECONDARY TO BLOOD LOSS (CHRONIC) (5) Gastric adenoma Code(s): D13.1 - BENIGN NEOPLASM OF STOMACH (6) Gastric dysplasia Code(s): Q40.3 - CONGENITAL MALFORMATION OF STOMACH, UNSPECIFIED (7) Hypercholesterolemia Code(s): E78.00 - PURE HYPERCHOLESTEROLEMIA, UNSPECIFIED (8) PAF (paroxysmal atrial fibrillation) Code(s): I48.0 - PAROXYSMAL ATRIAL FIBRILLATION (9) Peripheral vascular disease Code(s): I73.9 - PERIPHERAL VASCULAR DISEASE, UNSPECIFIED (10) Pulmonary hypertension Code(s): I27.20 - PULMONARY HYPERTENSION, UNSPECIFIED (11) Pulmonary vascular congestion Code(s): R09.89 - OTH SYMPTOMS AND SIGNS INVOLVING THE CIRC AND RESP SYSTEMS (12) S/P CABG (coronary artery bypass graft) Code(s): Z95.1 - PRESENCE OF AORTOCORONARY BYPASS GRAFT (13) CHF (congestive heart failure) Code(s): I50.9 - HEART FAILURE, UNSPECIFIED Qualifiers: Heart failure type: unspecified Heart failure chronicity: acute on chronic Qualified Code(s): I50.9 - Heart failure, unspecified (14) DM Diabetes mellitus Code(s): E11.9 - TYPE 2 DIABETES MELLITUS WITHOUT COMPLICATIONS (15) Emphysema lung Code(s): J43.9 - EMPHYSEMA, UNSPECIFIED (16) ILD (interstitial lung disease) Code(s): J84.9 - INTERSTITIAL PULMONARY DISEASE, UNSPECIFIED (17) Renal insufficiency Code(s): N28.9 - DISORDER OF KIDNEY AND URETER, UNSPECIFIED (18) Acute hypoxemic respiratory failure Code(s): J96.01 - ACUTE RESPIRATORY FAILURE WITH HYPOXIA Assessment/Plan IMP: Low clinical suspicion of PNA PLAN: Supplemental O2 Aspiration precautions BD TX Lasix po VTE prophylaxis Daily wts Monitor lytes,renal function,h+h DR SMITH
[2019-11-13 12:08] LABS: BLOOD UREA NITROGEN 35.5 mg/dL (7-18); CALCIUM 8.6 mg/dL (8.5-10.1); CREATININE 2.1 mg/dL (0.55-1.3); POTASSIUM 5.1 mmol/L (3.5-5.1)
--- NOTE | 2019-11-13 12:28 | DS ---
Physical Exam: SUBJECTIVE: Patient seen and examined at bedside. The patient denies fever/chills, shortness of breath, diarrhea, and constipation. The patient reports feeling ready to go to rehab. OBJECTIVE: Vital Signs Period Temp Pulse Resp BP Sys/Knutson Pulse Ox Last 24 Hr 97.8 F-98.7 F 56-58 16-20 132-145/40-57 96-98 PHYSICAL EXAM GENERAL: The patient is awake, alert, and fully oriented, in no acute distress, and no confusion. HEAD: Normal with no signs of trauma. EYES: PERRL, extraocular movements intact. No ptosis. ENT: Ears normal, nares patent, oropharynx clear without exudates, moist mucous membranes. Moderately large tongue. NECK: Trachea midline, full range of motion, supple. LUNGS: Breath sounds equal, clear to auscultation bilaterally, no wheezes, no crackles, no accessory muscle use. HEART: Regular rate and rhythm, S1, S2 without murmur, rub or gallop. ABDOMEN: Soft, nontender, nondistended, normoactive bowel sounds, no guarding, no rebound, no masses. EXTREMITIES: 2+ pulses, warm, well-perfused, no edema. NEUROLOGICAL: slurred speech, gait not observed. speaks Kyrgyz. PSYCH: Normal mood, normal affect. SKIN: Warm, dry, normal turgor. Nails pale/blanched. LABS Laboratory Results - last 24 hr 11/12/19 11/13/19 11/13/19 11:30 06:29 11:05 Sodium 135 L Potassium 5.1 Chloride 97 L Carbon Dioxide 36 H Anion Gap 3 L BUN 35.5 H Creatinine 2.1 H Est GFR (CKD-EPI)AfAm 32.75 Est GFR (CKD-EPI)NonAf 28.26 POC Glucometer 88 Random Glucose 256 H Calcium 8.6 COVID-19 (GIOVANI) Not detected HOSPITAL COURSE: Date of Admission:11/04/19 84 year old male patient with past medical history that includes COPD on 2 lpm, Diastolic CHF, AFib off Eliquis, GERD, HTN, HLD, Parkinson's Disease, CAD with CABGx2, Prostate Ca on RTx, Gastric Adenoma resected around 2015, and ILD, who presented to the ED with shortness of breath and hypoxia. BNP was 13,375. The patient's hypoxia resolved after being placed on BiPap and then on 4lpm Nasal Cannula, as well as getting Lasix. The patient was then weaned down to 2lpm NC, which is what he uses at home. The patient's hemoglobin fell from 9.0 on admission to 7.6 three days later, so the patient was given 1 unit of blood due to his CAD. The patient later had an erythematous inguinal rash likely secondary to his urinary incontinence, for which he wears a diaper, so the patient was given a Desitin topical cream for the rash. The patient also became constipated and was given Miralax, Docusate, and a Mineral Oil Enema, with resolution of the patient's constipation. Due to the patient's anemia as well as a FOBT that showed trace blood, the possibility of a GI bleed was considered and the patient was asked whether he would prefer to do an EGD/Colonoscopy inpatient or outpatient. The patient preferred an outpatient EGD/Colonoscopy, and the patient was then discharged to [facility] for rehab after a second COVID test came back negative. Date of Discharge: 11/13/19 Findings from [facility] papers faxed over regarding previous [facility] admission (i.e. the admission where the patient was transferred from [facility]): > Hospital course at [facility] (transferred to [facility] from [facility]): 10/20/19 until 10/29/19 > Reason for [facility] hospitalization transfer: "Altered Mental Status and possible stroke" > Procedures at [facility]: CXR, Head CT, CTA Head and Neck, No tPA given, US Duplex Carotid/Vertebral Artery > During [facility] hospital stay, patient "had multiple fluctuation in his mental status and cognition". The patient's family reported at [facility] that "his neurocognitive function has been declining significantly in the past 2-4 weeks, including delusions, changing language from mostly Kyrgyz to only Maltese (patient's first language), delusions/hallucinations, and not walking anymore because he reports he is afraid to fall. The psych team was consulted and they recommended that his agitation may be acute delirium on chronic major neurocognitive decline." The patient was given "Quetiapine 12.5mg Q6Hr BID standing for agitation and psychosis and Quetiapine 12.5mg Q6Hr PRN agitation when he was compliant with taking his medications, which seemed to calm his aggression sufficiently". > CT Head Results 7/17/20: "1. No acute intracranial hemorrhage is visualized. 2. Multiple regions of chronic appearing infarction as described above. 3. No evidence for acute infarction is demonstrated. ASPECTS 10." > CTA Head and Neck Results 10/19/19: "CT angiography of the neck: 1. Atherosclerosis of the bilateral common carotid bifurcations, with mild stenosis of the right carotid bifurcation bifurcation utilizing NASCET criteria. 2. 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 Mild, focal narrowing of the M2 branches of the middle cerebral artery bilaterally. 2. 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 Pneumonia should be excluded clinically." > US Duplex Carotid/Vertebral Artery Results 10/22/19: "1. At least 70-99% narrowing of the right internal carotid artery origin as per NASCET criteria. 2. At least 50-69% narrowing of the left internal carotid artery as per NASCET criteria." > H&P from 10/20/19 also stated: "Although patient has h/o gastric adenocarcinoma it was confirmed with Dr. Bradford GI attending that this mass was resected around 2015" Minutes to complete discharge: 40 Discharge Summary Problems reviewed: Yes Reason For Visit: RESPIRATORY FAILURE; CHF; PNEUMONIA; HYPERKALEMIA Current Active Problems Acute on chronic diastolic (congestive) heart failure (Acute) Hyperkalemia (Acute) Pneumonia (Acute) Respiratory failure (Acute) Condition: Good - Instructions Diet, Activity, Other Instructions: You were admitted to the hospital because of shortness of breath. During your hospital stay, you were evaluated with lab work, blood work, and imaging. Based on our evaluation, you may have had a pneumonia along with a CHF and/or COPD exacerbation. We treated you with medication, including antibiotics and a BiPap machine, and your symptoms resolved. During your hospital admission, your hemoglobin was found to be low in your blood work, so we gave you 1 unit of blood. Because low hemoglobin could be a sign of a small bleed in your stomach, please follow up with the Furniture Stainer Dr. Joni Boyd for a possible EGD, endoscopic ultrasound, and/or colonoscopy. Please also follow up with your Primary Care physician for a repeat CBC blood work to check your hemoglobin. Imaging Findings An ECG taken while you were at the hospital showed that you have a small rhythm abnormality with your heart called a "1st degree heart block". Medications stop iron supplements until follow up with GI Please continue all of your medications as prescribed. Follow ups Please follow up with the Furniture St[employer] Dr. Joni Boyd regarding your low hemoglobin in your blood work. Please follow up with the [facility] [employer] [employer] Dr. Prabhu Ortiz within 1 week regarding your COPD exacerbation. Please follow up with the Primary Care physician Dr. Vince Colbert within 1 week to do repeat blood work next week. GI follow up as soon as possible If you experience worsening symptoms, chest pain, shortness of breath, blood in your urine, burning on urination, or worsening of your condition, please come to the emergency room or call 911. Referrals: Vince Colbert MD [Primary Care Provider] - 1 Week (Low Hemoglobin. Needs repeat CBC.) Joni Boyd MD [Non Staff, Medical] - 1 Week (Anemia. History of Gastric Adenoma. Possibly needs: EGD, endoscopic ultrasound, and/or colonoscopy.) Prabhu Ortiz MD, MD [Staff Physician] - 1 Week (COPD exacerbation and/or CHF exacerbation with oxygen saturation in the 60's. 3rd hospitalization in the past couple of months.) Disposition: [facility] - Home Medications Comprehensive Discharge Medication List: Ambulatory Orders Amlodipine Besylate [Norvasc -] 10 mg PO DAILY 11/04/19 Apixaban [Eliquis] 2.5 mg PO BID 11/04/19 Budesonide/Formoterol Fumarate [Budesonide-Formoterol 160-4.5] 10.2 gm IH ASDIR 11/04/19 Carbidopa/Levodopa *Cr* 50/200 [Sinemet *Cr* 50/200 -] 1 combo PO TID 11/04/19 Carvedilol [Coreg -] 25 mg PO BID 11/04/19 Empagliflozin [Jardiance] 25 mg PO DAILY 11/04/19 Pantoprazole Sodium [Protonix] 40 mg PO DAILY 11/04/19 Ranolazine [Ranexa] 500 mg PO BID 11/04/19 Doxazosin Mesylate 2 mg PO DAILY 11/05/19 Tiotropium [place] [Spiriva] 1 inh IH DAILY 11/05/19 hydrALAZINE HCL [Apresoline -] 25 mg PO BID 11/05/19 Amox-Tr/K Cl [Augmentin 500-125mg Tablet -] 1 tab PO BID@0800,1730 tablet 11/13/19 Cod Liver Oil/Zinc Oxide [Desitin Diaper Rash Oint -] 1 applic TP ASDIR PRN tube 11/13/19 Docusate Sodium [Colace -] 100 mg PO DAILY capsule 11/13/19 Furosemide [Lasix -] 80 mg PO DAILY tablet 11/13/19 Insulin Sliding Scale [Novolog Vial Sliding Scale -] 1 vial SQ ACHS units 11/13/19 Polyethylene Glycol 3350 [Miralax 119 gm Btl -] 17 gm PO DAILY bottle 11/13/19 This patient is new to me today: No Emergency Visit: Yes ED Registration Date: 11/04/19 Care time: The patient presented to the Emergency Department on the above date and was hospitalized for further evaluation of their emergent condition. Critical Care patient: No - Discharge Referral Referred to [facility] Med P.C.: No ATTENDING PHYSICIAN STATEMENT I saw and evaluated the patient. I reviewed the resident's note and discussed the case with the resident. I agree with the resident's findings and plan as documented. SUBJECTIVE: OBJECTIVE: ASSESSMENT AND PLAN:
--- NOTE | 2019-11-13 12:58 | PN ---
Progress Note, Physician History of Present Illness: Pt seen and examined at bedside. He is awake but confused. He denies shortness of breath. - Current Medication List Current Medications: Active Medications Acetaminophen (Tylenol -) 650 mg PO Q6H PRN PRN Reason: Fever Or Pain Last Admin: 11/12/19 16:55 Dose: 650 mg Documented by: Amlodipine Besylate (Norvasc -) 10 mg PO DAILY [facility] Last Admin: 11/13/19 09:19 Dose: 10 mg Documented by: Budesonide/Formoterol Fumarate (Symbicort 160/4.5mcg -) 2 puff IH BID [facility] Last Admin: 11/13/19 09:19 Dose: 2 puff Documented by: Carbidopa/Levodopa (Sinemet *Cr* 50/200 -) 1 combo PO BID [facility] Last Admin: 11/13/19 09:17 Dose: 1 combo Documented by: Carvedilol (Coreg -) 25 mg PO BID [facility] Last Admin: 11/13/19 09:18 Dose: Not Given Documented by: Docusate Sodium (Colace -) 100 mg PO DAILY [facility] Last Admin: 11/13/19 09:16 Dose: 100 mg Documented by: Doxazosin Mesylate (Cardura -) 2 mg PO HS [facility] Last Admin: 11/12/19 22:30 Dose: 2 mg Documented by: Furosemide (Lasix -) 80 mg PO DAILY [facility] Last Admin: 11/13/19 09:18 Dose: 80 mg Documented by: Insulin Aspart (Novolog Vial Sliding Scale -) 1 vial SQ [facility]; Protocol Last Admin: 11/13/19 12:05 Dose: 6 units Documented by: Pantoprazole Sodium (Protonix Iv) 40 mg IVPUSH BID [facility] Last Admin: 11/13/19 09:19 Dose: 40 mg Documented by: Polyethylene Glycol (Miralax (For Daily Use) -) 17 gm PO DAILY [facility] Last Admin: 11/13/19 09:18 Dose: 17 gm Documented by: Ranolazine (Ranexa -) 500 mg PO BID [facility] Last Admin: 11/13/19 09:17 Dose: 500 mg Documented by: Tetrahydrozoline HCl (Visine -) 1 drop OU BID PRN PRN Reason: DRY EYES Last Admin: 11/13/19 09:19 Dose: 1 drop Documented by: Tiotropium [place] (Spiriva Respimat) 1 puff IH DAILY RANJAN Last Admin: 11/13/19 09:19 Dose: 1 puff Documented by: Zinc Oxide (Desitin Diaper Rash Oint -) 1 applic TP ASDIR PRN PRN Reason: HYGEINE Last Admin: 11/13/19 09:19 Dose: 1 applic Documented by: - Objective Vital Signs: Vital Signs Temperature 98.6 F 11/13/19 09:24 Pulse Rate 58 L 11/13/19 09:24 Respiratory Rate 16 11/13/19 09:24 Blood Pressure 145/55 L 11/13/19 09:24 O2 Sat by Pulse Oximetry (%) 97 11/13/19 10:00 Constitutional: Yes: Calm Eyes: Yes: Conjunctiva Clear HENT: Yes: Atraumatic Neck: Yes: Supple Cardiovascular: Yes: S1, S2 Respiratory: Yes: CTA Bilaterally, On Nasal O2 Gastrointestinal: Yes: Normal Bowel Sounds, Soft Genitourinary: Yes: WNL Musculoskeletal: Yes: WNL Edema: No Integumentary: Yes: WNL Neurological: Yes: Confusion Labs: 11/11/19 06:05 Problem List - Problems (1) Acute on chronic diastolic (congestive) heart failure Code(s): I50.33 - ACUTE ON CHRONIC DIASTOLIC (CONGESTIVE) HEART FAILURE (2) ILD (interstitial lung disease) Code(s): J84.9 - INTERSTITIAL PULMONARY DISEASE, UNSPECIFIED Assessment/Plan Current Medications Generic Name Dose Route Start Last Admin Trade Name Freq PRN Reason Stop Dose Admin Acetaminophen 650 mg 11/04/19 21:46 11/12/19 16:55 Tylenol - PO 650 mg Q6H PRN Administration Fever Or Pain Amlodipine Besylate 10 mg 11/05/19 10:00 11/13/19 09:19 Norvasc - PO 10 mg DAILY RANJAN Administration Budesonide/Formoterol Fumarate 2 puff 11/05/19 22:00 11/13/19 09:19 Symbicort 160/4.5mcg - IH 2 puff BID RANJAN Administration Carbidopa/Levodopa 1 combo 11/04/19 22:00 11/13/19 09:17 Sinemet *Cr* 50/200 - PO 1 combo BID RANJAN Administration Carvedilol 25 mg 11/04/19 22:00 11/13/19 09:18 Coreg - PO Not Given BID RANJAN Docusate Sodium 100 mg 11/09/19 12:30 11/13/19 09:16 Colace - PO 100 mg DAILY RANJAN Administration Doxazosin Mesylate 2 mg 11/05/19 22:00 11/12/19 22:30 Cardura - PO 2 mg HS RANJAN Administration Furosemide 80 mg 11/07/19 10:00 11/13/19 09:18 Lasix - PO 80 mg DAILY RANJAN Administration Insulin Aspart 1 vial 11/04/19 16:30 11/13/19 12:05 Novolog Vial Sliding Scale - SQ 6 units ACHS RANJAN Administration Protocol Pantoprazole Sodium 40 mg 11/07/19 22:00 11/13/19 09:19 Protonix Iv IVPUSH 40 mg BID RANJAN Administration Polyethylene Glycol 17 gm 11/08/19 15:00 11/13/19 09:18 Miralax (For Daily Use) - PO 17 gm DAILY RANJAN Administration Ranolazine 500 mg 11/04/19 22:00 11/13/19 09:17 Ranexa - PO 500 mg BID RANJAN Administration Tetrahydrozoline HCl 1 drop 11/06/19 23:56 11/13/19 09:19 Visine - OU 1 drop BID PRN Administration DRY EYES Tiotropium [place] 1 puff 11/05/19 14:45 11/13/19 09:19 Spiriva Respimat IH 1 puff DAILY RANJAN Administration Zinc Oxide 1 applic 11/08/19 14:04 11/13/19 09:19 Desitin Diaper Rash Oint - TP 1 applic ASDIR PRN Administration HYGEINE Impression 1. ckd 2. anemia 3. chf 4. hc hemoptysis 5. ILD 6. cad 7. htn 8. a-fib 9. cva 10. ANÍBAL Plan - cont to monitor renal function - cont diuretics - monitor volume status - avoids nsaids - will need outpt follow up
[2019-11-13 13:13] VITALS: BP 139/45; PULSE 55; TEMP 98.1
--- NOTE | 2019-11-13 16:06 | PN ---
Teaching Attending Note Name of Resident: Baljit Strong ATTENDING PHYSICIAN STATEMENT I saw and evaluated the patient. I reviewed the resident's note and discussed the case with the resident. I agree with the resident's findings and plan as documented. SUBJECTIVE: Patient is improved with no acute distress. OBJECTIVE: Vital Signs Temperature 98.1 F 11/13/19 13:09 Pulse Rate 55 L 11/13/19 13:09 Respiratory Rate 16 11/13/19 13:09 Blood Pressure 139/45 L 11/13/19 13:09 O2 Sat by Pulse Oximetry (%) 97 11/13/19 10:00 PE: per residents note CBCD WBC 6.1 K/mm3 (4.0-10.0) 11/11/19 06:05 RBC 3.08 M/mm3 (4.00-5.60) L 11/11/19 06:05 Hgb 9.2 GM/dL (11.7-16.9) L 11/11/19 06:05 Hct 28.1 % (35.4-49) L 11/11/19 06:05 MCV 91.2 fl (80-96) 11/11/19 06:05 MCHC 32.6 g/dl (32.0-35.9) 11/11/19 06:05 RDW 16.9 % (11.9-15.9) H 11/11/19 06:05 Plt Count 191 K/MM3 (134-434) 11/11/19 06:05 MPV 8.6 fl (7.5-11.1) 11/11/19 06:05 CMP Sodium 135 mmol/L (136-145) L 11/13/19 11:05 Potassium 5.1 mmol/L (3.5-5.1) 11/13/19 11:05 Chloride 97 mmol/L (98-107) L 11/13/19 11:05 Carbon Dioxide 36 mmol/L (21-32) H 11/13/19 11:05 Anion Gap 3 MMOL/L (8-16) L 11/13/19 11:05 BUN 35.5 mg/dL (7-18) H 11/13/19 11:05 Creatinine 2.1 mg/dL (0.55-1.3) H 11/13/19 11:05 Random Glucose 256 mg/dL (74-106) H 11/13/19 11:05 Calcium 8.6 mg/dL (8.5-10.1) 11/13/19 11:05 Total Bilirubin 0.7 mg/dL (0.2-1) 11/10/19 06:33 AST 14 U/L (15-37) L 11/10/19 06:33 ALT < 6 U/L (13-61) L 11/10/19 06:33 Alkaline Phosphatase 52 U/L (45-117) 11/10/19 06:33 Total Protein 5.2 g/dl (6.4-8.2) L 11/10/19 06:33 Albumin 2.5 g/dl (3.4-5.0) L 11/10/19 06:33 CARDIAC ENZYMES Creatine Kinase 51 U/L (26-308) 11/04/19 09:49 Troponin I 0.05 ng/ml (0.00-0.05) 11/04/19 09:49 Current Medications Generic Name Dose Route Start Last Admin Trade Name Freq PRN Reason Stop Dose Admin Acetaminophen 650 mg 11/04/19 21:46 11/12/19 16:55 Tylenol - PO 650 mg Q6H PRN Administration Fever Or Pain Amlodipine Besylate 10 mg 11/05/19 10:00 11/13/19 09:19 Norvasc - PO 10 mg DAILY RNAJAN Administration Budesonide/Formoterol Fumarate 2 puff 11/05/19 22:00 11/13/19 09:19 Symbicort 160/4.5mcg - IH 2 puff BID RANJAN Administration Carbidopa/Levodopa 1 combo 11/04/19 22:00 11/13/19 09:17 Sinemet *Cr* 50/200 - PO 1 combo BID RANJAN Administration Carvedilol 25 mg 11/04/19 22:00 11/13/19 09:18 Coreg - PO Not Given BID RANJAN Docusate Sodium 100 mg 11/09/19 12:30 11/13/19 09:16 Colace - PO 100 mg DAILY RANJAN Administration Doxazosin Mesylate 2 mg 11/05/19 22:00 11/12/19 22:30 Cardura - PO 2 mg HS RANJAN Administration Furosemide 80 mg 11/07/19 10:00 11/13/19 09:18 Lasix - PO 80 mg DAILY RANJAN Administration Insulin Aspart 1 vial 11/04/19 16:30 11/13/19 12:05 Novolog Vial Sliding Scale - SQ 6 units ACHS RANJAN Administration Protocol Pantoprazole Sodium 40 mg 11/07/19 22:00 11/13/19 09:19 Protonix Iv IVPUSH 40 mg BID RANJAN Administration Polyethylene Glycol 17 gm 11/08/19 15:00 11/13/19 09:18 Miralax (For Daily Use) - PO 17 gm DAILY RANJAN Administration Ranolazine 500 mg 11/04/19 22:00 11/13/19 09:17 Ranexa - PO 500 mg BID RANJAN Administration Tetrahydrozoline HCl 1 drop 11/06/19 23:56 11/13/19 09:19 Visine - OU 1 drop BID PRN Administration DRY EYES Tiotropium [place] 1 puff 11/05/19 14:45 11/13/19 09:19 Spiriva Respimat IH 1 puff DAILY RANJAN Administration Zinc Oxide 1 applic 11/08/19 14:04 11/13/19 09:19 Desitin Diaper Rash Oint - TP 1 applic ASDIR PRN Administration HYGEINE Home Medications Medication Instructions Recorded Amlodipine Besylate [Norvasc -] 10 mg PO DAILY 11/04/19 Apixaban [Eliquis] 2.5 mg PO BID 11/04/19 Budesonide/Formoterol Fumarate 10.2 gm IH ASDIR 11/04/19 [Budesonide-Formoterol 160-4.5] Carbidopa/Levodopa *Cr* 50/200 1 combo PO TID 11/04/19 [Sinemet *Cr* 50/200 -] Carvedilol [Coreg -] 25 mg PO BID 11/04/19 Empagliflozin [Jardiance] 25 mg PO DAILY 11/04/19 Pantoprazole Sodium [Protonix] 40 mg PO DAILY 11/04/19 Ranolazine [Ranexa] 500 mg PO BID 11/04/19 Doxazosin Mesylate 2 mg PO DAILY 11/05/19 Tiotropium [place] [Spiriva] 1 inh IH DAILY 11/05/19 hydrALAZINE HCL [Apresoline -] 25 mg PO BID 11/05/19 Amox-Tr/K Cl [Augmentin 500-125mg 1 tab PO BID@0800,1730 tablet 11/13/19 Tablet -] Cod Liver Oil/Zinc Oxide [Desitin 1 applic TP ASDIR PRN tube 11/13/19 Diaper Rash Oint -] Docusate Sodium [Colace -] 100 mg PO DAILY capsule 11/13/19 Furosemide [Lasix -] 80 mg PO DAILY tablet 11/13/19 Insulin Sliding Scale [Novolog 1 vial SQ ACHS units 11/13/19 Vial Sliding Scale -] Polyethylene Glycol 3350 [Miralax 17 gm PO DAILY bottle 11/13/19 119 gm Btl -] Microbiology 11/04/19 09:49 Blood - Peripheral Venous Blood Culture - Final NO GROWTH AFTER 5 DAYS INCUBATION 11/04/19 09:49 Blood - Peripheral Venous Blood Culture - Final NO GROWTH AFTER 5 DAYS INCUBATION 11/05/19 13:15 Sputum - Expectorated Gram Stain - Final 11/05/19 13:15 Sputum - Expectorated Sputum Culture - Final NORMAL RESPIRATORY NELSON 11/04/19 21:00 Urine - Urine Clean Catch Urine Culture - Final NO GROWTH OBTAINED 11/05/19 10:51 Urine For Antigen Detection Legionella Antigen - Final 11/05/19 10:51 Urine For Antigen Detection Streptococcus pneumoniae Antigen (M - Final EKG: SR,rate of 65, LAD, inferior infarct age undetermined. CXR: s/p sternotomy, large heart, congestive changes, possible infiltrate sup erimposed. blunting right angle. ASSESSMENT AND PLAN: This patient is an 84yom with Pmhx of HTN , HLD, CKD, CAD sp CABG x 2 vessels, carotid stenosis, CHF, Afib, Parkinson disease, prostate cancer on radiation therapy, COPD on 2 liters NC at home, possible ILD , recurrent pneumonias who presented with acute diastolic CHF exacerbation with acute hypoxic respiratory failure #Acute hypoxic respiratory failure: improved continue home oxygen , Bipap prn #Possible infiltrate vs. aspiration pneumonia : ewing cx as above, s/p Zosyn , on Augmentin 500mg #Acute on chronic diastolic CHF exacerbation: s/p IV lasix , on po lasix and coreg continue #Acute on chronic kidney injury: s/p renally dosed zosyn, now on augmentin 500mg bid #Atrial fibrillation off of AC : off AC due to hemoptysis , continue Coreg #Hx of Acute blood loss with hemoptysis which was aggrevated by Luigi. #Hx of chronic COPD on 2 liter oxygen continue #Hx of HTN : controlled on Norvasc ,coreg continue #Hx of T2DM: SS with coverage , patient is Jardiance at home, will dc since GFR less than 30 , will add Januvia 25mg renALLy adjusted #Hx of prostate cancer with hx of urinary retention , on Flomax continue #Hx of dysplastic gastric polyp #Hx of Parkinson's disease : continue Sinemet COVID PCR swab DVT Px: SCDs, off Ac due to high risk for bleed dc to rehab
== END 2019-11-13 17:13 | DRG 177 ==
LOC: SUPCPDRO 08:56 → JER 08:56 → JERBED 12:37 → J4S 19:36
PROVIDERS: ADMIT Internal Medicine; ATTEND Internal Medicine
PROC: 30233N1 Transfusion of Nonautologous Red Blood Cells into Peripheral Vein, Percutaneous Approach (ICD-10-PCS; principal; 2019-11-07)
DX: J69.0 Pneumonitis due to inhalation of food and vomit (principal); I50.33 Acute on chronic diastolic (congestive) heart failure; J96.01 Acute respiratory failure with hypoxia; I13.0 Hypertensive heart and chronic kidney disease with heart failure and stage 1 through stage 4 chronic kidney disease, or unspecified chronic kidney disease; N17.9 Acute kidney failure, unspecified; R64 Cachexia; Z68.1 Body mass index [BMI] 19.9 or less, adult; J44.1 Chronic obstructive pulmonary disease with (acute) exacerbation; D68.32 Hemorrhagic disorder due to extrinsic circulating anticoagulants; D62 Acute posthemorrhagic anemia; K92.2 Gastrointestinal hemorrhage, unspecified; J84.9 Interstitial pulmonary disease, unspecified; D72.829 Elevated white blood cell count, unspecified; G20 Parkinson's disease; N18.9 Chronic kidney disease, unspecified; E78.5 Hyperlipidemia, unspecified; K21.9 Gastro-esophageal reflux disease without esophagitis; Z95.1 Presence of aortocoronary bypass graft; K59.00 Constipation, unspecified; E87.5 Hyperkalemia
CPT/HCPCS: 36415; 36430; 36511; 36600; 71045-TC-FY; 80048; 80053; 81003; 82272; 82550; 82803; 82962; 83605; 83735; 83880; 84100; 84132; 84484; 85025; 85027; 85610; 85730; 86850; 86900; 86901; 86922; 87040; 87070; 87086; 87205; 87899; 93005; 93010; 94660; 97116-GP; 97161-GP; 99291; P9038; P9058; U0003

== ENCOUNTER 2019-12-17 09:14 | Inpatient (IN) | payer OTHER, MEDICARE ==
--- NOTE | 2019-12-17 09:29 | PDOC ---
History of Present Illness - General Chief Complaint: Altered Mental Status Stated Complaint: Altered Mental Status Time Seen by Provider: 12/17/19 09:24 - History of Present Illness Initial Comments: HPI Pt is an 84 yo M with PMH includes COPD on 2L O2, Diastolic CHF, AFib on Eliquis, GERD, HTN, HLD, Parkinson's Disease, CAD with CABGx2, who presents with hallucinations, hypoxic, and inability to ambulate. Pt's son called ambulance early this am because pt was hallucinating, being combative and refusing to keep his nasal cannula on. Son notes that pt was hypoxic with 71% on home pulse ox. Pt returned home from [facility] (there for PT for leg weakness) on Tuesday, son notes that he has been unable to ambulate since being home. Pt and son report that pt is concerned with falling and being unable to bear weight. PCP: Johanny @ [facility] Genetics Physician: Addison? PMH: see above Meds: see chart Allergies: NKDA Review of Systems CONSTITUTIONAL: reports generalized weakness; denies fever, chills, diaphoresis, malaise, loss of appetite HEENT: denies rhinorrhea, nasal congestion, sore throat, visual changes CARDIOVASCULAR: denies chest pain, palpitations, irregular heart rate RESPIRATORY: denies cough, shortness of breath, wheezing GASTROINTESTINAL: denies abdominal pain, nausea, vomiting, diarrhea, constipation, melena, hematochezia GENITOURINARY: denies dysuria, frequency, urgency, hematuria, flank pain MUSCULOSKELETAL: denies myalgia, arthralgia HEMATOLOGIC/IMMUNOLOGIC: denies easy bleeding, easy bruising ENDOCRINE: denies unexplained weight gain, unexplained weight loss NEUROLOGIC: reports unsteady gait; denies headache, loss of consciousness, focal weakness or paresthesias, dizziness SKIN: denies rash, itching, pallor PSYCHIATRIC: reports hallucinations - cameras in the corners of the room Physical Exam General: awake, alert, fully oriented, in no acute distress, thin appearing Head: normocephalic, atraumatic Eyes: PERRL, EOMI, anicteric sclera, conjunctiva clear ENT: Auricles normal inspection, hearing grossly normal, oropharynx clear without exudates, dry mucous membranes Neck: supple, normal ROM, no LAD, JVD or masses Lung: equal breath sounds b/l, CTA b/l, no crackles, wheezes Heart: RRR, normal S1, S2, no murmurs appreciated Abdomen: soft, non tender, normoactive bowel sounds, no guarding, rebound, masses Extremities: normal ROM, no edema, no erythema or tenderness, DP/PT pulses 2+ and symmetric Neuro: CN2-12 grossly intact, moves all extremities 5/5 motor strength in bl LE, normal speech, sensation intact Skin: warm, dry, decreased skin turgor, capillary refill <2 seconds, no rashes or lesions noted MDM Pt is an 84 yo M with PMH includes COPD on 2L O2, Diastolic CHF, AFib on Eliquis, GERD, HTN, HLD, Parkinson's Disease, CAD with CABGx2, Prostate Ca on RTx, Gastric Adenoma resected around 2015, and ILD who presents with hallucinations, hypoxic, and inability to ambulate. Vitals significant for: bradycardia (on carvedilol), hypertensive, afebrile, satting 95% on 3L DDx including but not limited to: sepsis, UTI, pneumonia, electrolyte abnormality Workup: labs, cxr, ekg, head CT [place]: IV fluids EKG: sinus bradycardia with first degree AV block, HR 54bpm, NV 232ms, QRS 110ms, QTc 468ms, left axis deviation, no ST changes CXR: coarse lung changes compatible with mild congestion. Diminished infiltrative findings and atelectasis compared to prior 11/09/2019. ED course Labs: ANÍBAL, anemia (@baseline), no leukocytosis, troponin WNL, electrolytes WNL - will give 1L NS, slowly 12/17/19 12:[address]: no acute intracranial pathology or significant change from 10/2019; moderate degree of diffuse cerebral atrophy with sulcal widening and ventricular dilatation; hypodense changes noted throughout periventricular white matter consistent with chronic, small vessel ischemia UA: 3+ LE, bacteriuria, +WBC - will give 1g Rocephin Discussed admission with pt and son who agreed with plan Disposition: Admit ANÍBAL, UTI, AMS, inability to ambulate Past History - Medical History Allergies/Adverse Reactions: Allergies Allergy/AdvReac Type Severity Reaction Status Date / Time No Known Allergies Allergy Verified 12/17/19 09:29 Home Medications: Ambulatory Orders Amlodipine Besylate [Norvasc -] 10 mg PO DAILY 11/04/19 Apixaban [Eliquis] 2.5 mg PO BID 11/04/19 Carbidopa/Levodopa *Cr* 50/200 [Sinemet *Cr* 50/200 -] 1 combo PO TID 11/04/19 Carvedilol [Coreg -] 25 mg PO BID 11/04/19 Pantoprazole Sodium [Protonix] 40 mg PO DAILY 11/04/19 Ranolazine [Ranexa] 500 mg PO BID 11/04/19 Doxazosin Mesylate 2 mg PO DAILY 11/05/19 Tiotropium [place] [Spiriva] 1 inh IH DAILY 11/05/19 hydrALAZINE HCL [Apresoline -] 25 mg PO BID 11/05/19 Atorvastatin Ca [Lipitor] 10 mg PO HS 12/17/19 Empagliflozin [Jardiance] 25 mg PO DAILY 12/17/19 Ferrous Sulfate [Iron] 325 mg PO BID 12/17/19 Furosemide [Lasix -] 20 mg PO DAILY 12/17/19 Quetiapine Fumarate [Seroquel -] 25 mg PO HS 12/17/19 Anemia: Yes Asthma: Yes Cancer: Yes (Prostate, RADIATION 1986) Cardiac Disorders: Yes (AFIB,Cad, CABG, AR) CVA: (OCCLUSION / STENOSIS OF CAROTID ARTERY) COPD: Yes CHF: Yes Dementia: No Diabetes: Yes GI Disorders: Yes (GASTRIC AND COLON POLYPS,CHRONIC CONSTIPATION) Disorders: No HTN: Yes Hypercholesterolemia: Yes Liver Disease: No Seizures: No Thyroid Disease: No - Surgical History Abdominal Surgery: No Appendectomy: No Cardiac Surgery: Yes (CABG x 3, carotid endartorectomy) Cholecystectomy: No Lung Surgery: Yes (R CHEST TUBE) Neurologic Surgery: No Orthopedic Surgery: No - Immunization History Immunization Up to Date: Yes - Psycho-Social/Smoking History Smoking Status: Yes Smoking History: Former smoker Have you smoked in the past 12 months: No Number of Cigarettes Smoked Daily: 0 If you are a former smoker, when did you quit?: 1986 Cigars Per Day: 0 ED Treatment Course - LABORATORY CBC & Chemistry Diagram: 12/18/19 06:55 12/18/19 06:55 Discharge - Discharge Information Problems reviewed: Yes Clinical Impression/Diagnosis: Acute on chronic kidney failure Qualifiers: Acute renal failure type: unspecified Chronic kidney disease stage: unspecified stage Qualified Code(s): N17.9 - Acute kidney failure, unspecified Urinary tract infection Qualifiers: Urinary tract infection type: site unspecified Hematuria presence: with hematuria Qualified Code(s): N39.0 - Urinary tract infection, site not specified Condition: Guarded - Admission Yes - Follow up/Referral - Patient Discharge Instructions - Post Discharge Activity
[2019-12-17 10:49] LABS: BASO % 0.5 % (0-2.0); EOS % 1.5 % (0-4.5); HEMATOCRIT 26.8 % (35.4-49); HEMOGLOBIN 8.9 GM/dL (11.7-16.9); LYMPH % 10.3 % (8-40); MCH 30.5 pg (25.7-33.7); MCHC 33.3 g/dl (32.0-35.9); MEAN CELL VOLUME 91.6 fl (80-96); MEAN PLT VOLUME 8.7 fl (7.5-11.1); MONO % 7.7 % (3.8-10.2); PLATELET COUNT 162 K/MM3 (134-434); RBC 2.93 M/mm3 (4.00-5.60); RDW 14.8 % (11.9-15.9); WHITE BLOOD COUNT 6.5 K/mm3 (4.0-10.0)
[2019-12-17 10:54] LABS: VENOUS BASE EXCESS 4.9 mmol/L (-2-2); VENOUS O2 SATURATION 71.3 % (70-80); VENOUS PCO2 50.3 mmHg (38-52); VENOUS PH 7.4 (7.310-7.410)
[2019-12-17 10:55] LABS: INR 1.49 (0.83-1.09); PROTHROMBIN TIME (PATIENT) 17.6 SEC (9.7-13.0)
--- NOTE | 2019-12-17 11:10 | PDOC ---
Documentation entered by Estefania Swan SCRIBE, acting as scribe for Cy Tellez MD. Cy Tellez MD: This documentation has been prepared by the Sosa lomeli Xhesika, SCRIBE, under my direction and personally reviewed by me in its entirety. I confirm that the documentation accurately reflects all work, treatment, procedures, and medical decision making performed by me. Attending Attestation - Resident Resident Name: Kaylie Scherera - ED Attending Attestation I have performed the following: I have examined & evaluated the patient, The case was reviewed & discussed with the resident, I agree w/resident's findings & plan, Exceptions are as noted - HPI HPI: 12/17/19 10:07 The patient is an 84 year old male with a past medical history significant for HTN, HLD, CHF, DM, COPD (2L [place] home o2), CAD s/p CABG (2008), Prostate CA, and recurrent pneumonia who presents to the emergency department BIBA for AMS. Per son, the pt was discharged from [facility] 1 week ago and was reportedly ambulating per [place] records, however, son states the pt can not ambulate. Son at bedside states the pt has been more altered from his baseline MS. Son reports the pt has been combative and endorsing hallucinations particularly at night. Son states the pt was satting on 75% off of his O2 and he was not able to put the nasal cannula on him, prompting him to call EMS. Pt deniesany cp, sob, abd pain, n/v, diarrhea, dysyuria, foul smelling urine. Allergies: NKDA PCP: Krystal Stephens - Physicial Exam PE: 12/17/19 11:09 GENERAL: The patient is awake, alert, Nontoxic - in no acute distress, thin/cachectic appearing HEAD: Normocephalic, atraumatic. EYES: extraocular movements intact, sclera anicteric, conjunctiva clear. ENT: Normal voice, dry mucous membranes. NECK: Normal range of motion, supple LUNGS: Breath sounds equal, clear to auscultation bilaterally. No wheezes, no rhonchi, no rales. HEART: Regular rate and rhythm, normal S1 and S2 without murmur, rub or gallop. ABDOMEN: Soft, nontender, No guarding, no rebound. No CVA tenderness EXTREMITIES: Normal range of motion, no edema. NEUROLOGICAL: No facial assymetry, Normal speech, moving all 4 ext spontaneusly and symmetrically PSYCH: Normal mood, normal affect. SKIN: Warm, Dry, normal turgor, - Medical Decision Making 12/17/19 10:22 suspect his ambulation is chronic due to deconditioning will do workup to r/o anemia, metabolic derangement, occult infection as cause of his AMS pt is alert/oriented here and seems neuro intact 12/17/19 11:27 pts labs reviewed noted for acute on chronic kidney njury likely due to dehdyration as he aslo appears dry will hydrate ua cw uti will give abx anticipate admission 12/18/19 11:00 Discharge - Discharge Information Problems reviewed: Yes Clinical Impression/Diagnosis: Acute on chronic kidney failure Qualifiers: Acute renal failure type: unspecified Chronic kidney disease stage: unspecified stage Qualified Code(s): N17.9 - Acute kidney failure, unspecified; N18.9 - Chronic kidney disease, unspecified Urinary tract infection Qualifiers: Urinary tract infection type: site unspecified Hematuria presence: with hematuria Qualified Code(s): N39.0 - Urinary tract infection, site not specified; R31.9 - Hematuria, unspecified Condition: Guarded - Follow up/Referral - Patient Discharge Instructions - Post Discharge Activity
[2019-12-17 11:11] LABS: ALBUMIN 3.7 g/dl (3.4-5.0); BILIRUBIN,TOTAL 0.8 mg/dL (0.2-1); CALCIUM 9.1 mg/dL (8.5-10.1); CREATININE 3.4 mg/dL (0.55-1.3); POTASSIUM 4.4 mmol/L (3.5-5.1); TOT PROT 7.5 g/dl (6.4-8.2)
[2019-12-17] MEDS ORDERED: SODIUM CHLORIDE 0.9% 500 ML INFUS.BAG IV ONE ×2 (11:27→14:23)
[2019-12-17 12:17] LABS: EPI CELLS 1 /uL (0-25.1); HYALINE CASTS 1 /uL (0-3.1); PH,URINE 6.5 (5.0-8.0); URINE APPEARANCE CLOUDY; URINE BACTERIA 749 /uL (0-1359); URINE BILIRUBIN NEGATIVE (NEGATIVE); URINE COLOR YELLOW; URINE GLUCOSE (UA) NEGATIVE (NEGATIVE); URINE KETONE NEGATIVE (NEGATIVE); URINE LEUK ESTERASE 3+ (NEGATIVE); URINE NITRITE NEGATIVE (NEGATIVE); URINE PROTEIN 1+ (NEGATIVE); URINE RBC 14 /uL (0-23.9); URINE WBC 921 /uL (0-25.8)
[2019-12-17] MEDS ORDERED: CEFTRIAXONE 1 GM in DEXTROSE 5%-WATER - 50 ML IVPB ONE (12:33)
[2019-12-17] MEDS ORDERED: CEFTRIAXONE 1 GM/50 ML BAG ONE (12:50)
--- NOTE | 2019-12-17 13:20 | HP ---
CHIEF COMPLAINT: AMS HISTORY OF PRESENT ILLNESS: 84 y/o male PMH includes COPD on 2L O2, diastolic CHF, AFib on Eliquis, GERD, HTN, HLD, Parkinson's Disease, CAD with CABGx2 brought in for change in mentation. Family notes pt is more combative, is less coherent/mixing Occitan and Chinese and less able to participate in activities of daily living. Pt had a prolonged stay in physical rehab. He denies FNVD constipation and chills. He has not been around any sick contacts, traveled or tried new meds/foods/hebs/supplements. He denies dysuria, hematuria, cough, SOB, hematochezia. ER course was notable for: (1) 1 g ceftriaxone (2) + UA PAST MEDICAL HISTORY: COPD on 2L O2, diastolic CHF, AFib on Eliquis, GERD, HTN, HLD, Parkinson's Disease, CAD with CABGx2 PAST SURGICAL HISTORY: CABG 2008, carotid endartectomy Social History: Smoking: denies Alcohol: denies Drugs: denies Allergies No Known Allergies Allergy (Verified 12/17/19 09:29) HOME MEDICATIONS: Home Medications Medication Instructions Recorded Amlodipine Besylate [Norvasc -] 10 mg PO DAILY 11/04/19 Apixaban [Eliquis] 2.5 mg PO BID 11/04/19 Carbidopa/Levodopa *Cr* 50/200 1 combo PO TID 11/04/19 [Sinemet *Cr* 50/200 -] Carvedilol [Coreg -] 25 mg PO BID 11/04/19 Pantoprazole Sodium [Protonix] 40 mg PO DAILY 11/04/19 Ranolazine [Ranexa] 500 mg PO BID 11/04/19 Doxazosin Mesylate 2 mg PO DAILY 11/05/19 Tiotropium [place] [Spiriva] 1 inh IH DAILY 11/05/19 hydrALAZINE HCL [Apresoline -] 25 mg PO BID 11/05/19 Atorvastatin Ca [Lipitor] 10 mg PO HS 12/17/19 Empagliflozin [Jardiance] 25 mg PO DAILY 12/17/19 Ferrous Sulfate [Iron] 325 mg PO BID 12/17/19 Furosemide [Lasix -] 20 mg PO DAILY 12/17/19 Quetiapine Fumarate [Seroquel -] 25 mg PO HS 09/14/20 REVIEW OF SYSTEMS CONSTITUTIONAL: Absent: fever, chills, diaphoresis, generalized weakness, malaise, loss of appetite, weight change HEENT: Absent: rhinorrhea, nasal congestion, throat pain, throat swelling, difficulty swallowing, mouth swelling, ear pain, eye pain, visual changes CARDIOVASCULAR: Absent: chest pain, syncope, palpitations, irregular heart rate, lightheadedness, peripheral edema RESPIRATORY: Absent: cough, shortness of breath, dyspnea with exertion, orthopnea, wheezing, stridor, hemoptysis GASTROINTESTINAL: Absent: abdominal pain, abdominal distension, nausea, vomiting, diarrhea, constipation, melena, hematochezia GENITOURINARY: Absent: dysuria, frequency, urgency, hesitancy, hematuria, flank pain, genital pain MUSCULOSKELETAL: Absent: myalgia, arthralgia, joint swelling, back pain, neck pain SKIN: Absent: rash, itching, pallor HEMATOLOGIC/IMMUNOLOGIC: Absent: easy bleeding, easy bruising, lymphadenopathy, frequent infections ENDOCRINE: Absent: unexplained weight gain, unexplained weight loss, heat intolerance, cold intolerance NEUROLOGIC: Absent: headache, focal weakness or paresthesias, dizziness, unsteady gait, seizure, mental status changes, bladder or bowel incontinence PSYCHIATRIC: Absent: anxiety, depression, suicidal or homicidal ideation, hallucinations. PHYSICAL EXAMINATION Vital Signs - 24 hr 12/17/19 12/17/19 09:23 09:43 Temperature 98.2 F Pulse Rate 55 L Respiratory 18 Rate Blood Pressure 167/48 L O2 Sat by Pulse 96 95 Oximetry (%) GENERAL: Awake, alert, and fully oriented, in no acute distress. HEAD: Normal with no signs of trauma. EYES: Pupils equal, round and reactive to light, extraocular movements intact, sclera anicteric, conjunctiva clear. No lid lag. EARS, NOSE, THROAT: Ears normal, nares patent, oropharynx clear without exudates. Moist mucous membranes. NECK: Normal range of motion, supple without lymphadenopathy, JVD, or masses. LUNGS: Breath sounds equal, clear to auscultation bilaterally. No wheezes, and no crackles. No accessory muscle use. HEART: Regular rate and rhythm, normal S1 and S2 without murmur, rub or gallop. ABDOMEN: Soft, nontender, not distended, normoactive bowel sounds, no guarding, no rebound, no masses. No hepatomegaly or splenomegaly. MUSCULOSKELETAL: Normal range of motion at all joints. No bony deformities or tenderness. No CVA tenderness. UPPER EXTREMITIES: 2+ pulses, warm, well-perfused. No cyanosis. No clubbing. No peripheral edema. LOWER EXTREMITIES: 2+ pulses, warm, well-perfused. No calf tenderness. No peripheral edema. NEUROLOGICAL: Cranial nerves II-XII intact. Normal speech. Normal gait. PSYCHIATRIC: Cooperative. Good eye contact. Appropriate mood and affect. SKIN: Warm, dry, normal turgor, no rashes or lesions noted, normal capillary refill. Laboratory Results - last 24 hr 12/17/19 12/17/19 12/17/19 10:10 10:10 10:10 WBC 6.5 RBC 2.93 L Hgb 8.9 L Hct 26.8 L MCV 91.6 MCH 30.5 MCHC 33.3 RDW 14.8 D Plt Count 162 MPV 8.7 Absolute Neuts (auto) 5.2 Neutrophils % 80.0 Lymphocytes % 10.3 D Monocytes % 7.7 Eosinophils % 1.5 Basophils % 0.5 Nucleated RBC % 0 PT with INR 17.60 H INR 1.49 H PTT (Actin FS) 42.0 H VBG pH 7.400 POC VBG pCO2 50.3 POC VBG pO2 38.0 VBG HCO3 30.5 H VBG O2 Sat (Naila) 71.3 VBG Base Excess 4.9 H Sodium Potassium Chloride Carbon Dioxide Anion Gap BUN Creatinine Est GFR (CKD-EPI)AfAm Est GFR (CKD-EPI)NonAf Random Glucose Lactic Acid Calcium Total Bilirubin AST ALT Alkaline Phosphatase Troponin I Total Protein Albumin Urine Color Urine Appearance Urine pH Ur Specific [place] Urine Protein Urine Glucose (UA) Urine Ketones Urine Blood Urine Nitrite Urine Bilirubin Urine Urobilinogen Ur Leukocyte Esterase Urine WBC (Auto) Urine RBC (Auto) Urine Casts (Auto) U Epithel Cells (Auto) Urine Bacteria (Auto) 12/17/19 12/17/19 12/17/19 10:10 10:10 10:15 WBC RBC Hgb Hct MCV MCH MCHC RDW Plt Count MPV Absolute Neuts (auto) Neutrophils % Lymphocytes % Monocytes % Eosinophils % Basophils % Nucleated RBC % PT with INR INR PTT (Actin FS) VBG pH POC VBG pCO2 POC VBG pO2 VBG HCO3 VBG O2 Sat (Naila) VBG Base Excess Sodium 135 L Potassium 4.4 Chloride 96 L Carbon Dioxide 32 Anion Gap 7 L BUN 61.0 H Creatinine 3.4 H Est GFR (CKD-EPI)AfAm 18.29 Est GFR (CKD-EPI)NonAf 15.78 Random Glucose 76 Lactic Acid Calcium 9.1 Total Bilirubin 0.8 AST 14 L ALT 16 Alkaline Phosphatase 70 Troponin I < 0.02 Total Protein 7.5 Albumin 3.7 Urine Color Yellow Urine Appearance Cloudy Urine pH 6.5 Ur Specific [place] 1.013 Urine Protein 1+ H Urine Glucose (UA) Negative Urine Ketones Negative Urine Blood Negative Urine Nitrite Negative Urine Bilirubin Negative Urine Urobilinogen 1.0 Ur Leukocyte Esterase 3+ H Urine WBC (Auto) 921 Urine RBC (Auto) 14 Urine Casts (Auto) 1 U Epithel Cells (Auto) 1 Urine Bacteria (Auto) 749 12/17/19 10:23 WBC RBC Hgb Hct MCV MCH MCHC RDW Plt Count MPV Absolute Neuts (auto) Neutrophils % Lymphocytes % Monocytes % Eosinophils % Basophils % Nucleated RBC % PT with INR INR PTT (Actin FS) VBG pH POC VBG pCO2 POC VBG pO2 VBG HCO3 VBG O2 Sat (Naila) VBG Base Excess Sodium Potassium Chloride Carbon Dioxide Anion Gap BUN Creatinine Est GFR (CKD-EPI)AfAm Est GFR (CKD-EPI)NonAf Random Glucose Lactic Acid 0.7 Calcium Total Bilirubin AST ALT Alkaline Phosphatase Troponin I Total Protein Albumin Urine Color Urine Appearance Urine pH Ur Specific [place] Urine Protein Urine Glucose (UA) Urine Ketones Urine Blood Urine Nitrite Urine Bilirubin Urine Urobilinogen Ur Leukocyte Esterase Urine WBC (Auto) Urine RBC (Auto) Urine Casts (Auto) U Epithel Cells (Auto) Urine Bacteria (Auto) ASSESSMENT/PLAN: 84 y/o male PMH includes COPD on 2L O2, diastolic CHF, AFib on Eliquis, GERD, HTN, HLD, Parkinson's Disease, CAD with CABGx2 brought in for change in mentation. Head CT no acute changes, CXR no acute change, UA positive for 3+ LE. # AMS likely 2/2 UTI - Ceftriaxone 1g qd - PT - Hydrate appropriately # ANÍBAL - Judicious fluids - Consult nephrology # Microcytic anemia - B12/folate # COPD - Cont home o2 2L - Spiriva - Duonebs prn # dCHF - Cont. lasix - Daily weights # HTN - Cont. home norvasc, hydralazine, cardura, coreg # Afib - Eliquis # Parkinson Disease - carbidopa/levodopa - seroquel # GERD - Protonix # FEN - PO - Cont. to monitor and replete as appropriate - DM, low sodium diet # DVT ppx - Eliquis # Disposition - Admit to med/surg Omar Pal MD Family Medical History Family History: As Documented Visit type - Medication Review Med list reviewed for High Risk Meds patients 65 and older: Yes - Emergency Visit Emergency Visit: Yes ED Registration Date: 12/17/19 Care time: The patient presented to the Emergency Department on the above date and was hospitalized for further evaluation of their emergent condition. - New Patient This patient is new to me today: Yes Date on this admission: 12/26/19 - Critical Care Critical Care patient: No ATTENDING PHYSICIAN STATEMENT I saw and evaluated the patient. I reviewed the resident's note and discussed the case with the resident. I agree with the resident's findings and plan as documented. SUBJECTIVE: OBJECTIVE: ASSESSMENT AND PLAN:
[2019-12-17] MEDS ORDERED: ALBUTEROL SO4 HFA INHALER IH PRN (13:55)
[2019-12-17] MEDS ORDERED: HEPARIN NA (PORCINE) 5,000 UNITS/ML 1ML VIAL SQ SCH (14:00)
--- NOTE | 2019-12-17 15:56 | EKG ---
Test Reason : Blood Pressure : / mmHG Vent. Rate : 054 BPM Atrial Rate : 054 BPM P-R Int : 232 ms QRS Dur : 110 ms QT Int : 494 ms P-R-T Axes : 077 -56 079 degrees QTc Int : 468 ms SINUS BRADYCARDIA WITH 1ST DEGREE A-V BLOCK LEFT AXIS DEVIATION POSSIBLE ANTERIOR INFARCT , AGE UNDETERMINED ABNORMAL ECG WHEN COMPARED WITH ECG OF 04-NOV-2019 09:29, T WAVE VARIATION Confirmed by DEMI SETHI MD ([id number]) on 12/17/2019 3:56:02 PM Referred By: Confirmed By:DEMI SETHI MD
--- NOTE | 2019-12-17 17:07 | CONSULT ---
Consult Consult Specialty:: Nephrology Reason for Consultation:: aníbal - History of Present Illness Chief Complaint: sent in for altered mentation History of Present Illness: Pt is an 84 year old male with pmhx of copd, diastolic chf, a-fib, gerd, htn, hld, parkinsons and cad who was sent in for change in mental status. he is confused and unable to give history. He has been getting increasingly confused. he is agitated and not making much sense. He speaks mainly romansh. He denies shortness of breath. He is confused. He is not eating much. He was found to have elevated certified pharmacy technician and I was called to evaluate him. He is known to me. - Past Medical History Cardio/Vascular: Yes: AFIB (paroxysmal), CAD, CHF (diastolic), HTN, Mitral Insufficiency (and TR), Pulmonary Hypertension, Other (severe peripheral vascular disease) Pulmonary: Yes: Bronchitis, COPD, O2 Dependent, Pneumonia Gastrointestinal: Yes: Other (EGD 2015 gastric adenoma with low grade dysplasia, colon adenomas removed 2015- Dr Gardner) Renal/: Yes: Renal Inusuff Endocrine: Yes: Diabetes Mellitus - Past Surgical History Past Surgical History: Yes: CABG (2009 [facility] [place] Carotid Endarterectomy (left), Colonoscopy, Upper Endoscopy - Alcohol/Substance Use Hx Alcohol Use: Yes (rare) History of Substance Use: reports: None - Smoking History Smoking history: Former smoker Have you smoked in the past 12 months: No Aproximately how many cigarettes per day: 0 If you are a former smoker, when did you quit?: 1986 - Social History Usual Living Arrangement: With Spouse ADL: Family Assistance 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 History of Recent Travel: No Home Medications - Allergies Allergies/Adverse Reactions: Allergies Allergy/AdvReac Type Severity Reaction Status Date / Time No Known Allergies Allergy Verified 12/17/19 09:29 - Home Medications Home Medications: Ambulatory Orders Amlodipine Besylate [Norvasc -] 10 mg PO DAILY 11/04/19 Apixaban [Eliquis] 2.5 mg PO BID 11/04/19 Carbidopa/Levodopa *Cr* 50/200 [Sinemet *Cr* 50/200 -] 1 combo PO TID 11/04/19 Carvedilol [Coreg -] 25 mg PO BID 11/04/19 Pantoprazole Sodium [Protonix] 40 mg PO DAILY 11/04/19 Ranolazine [Ranexa] 500 mg PO BID 11/04/19 Doxazosin Mesylate 2 mg PO DAILY 11/05/19 Tiotropium [place] [Spiriva] 1 inh IH DAILY 11/05/19 hydrALAZINE HCL [Apresoline -] 25 mg PO BID 11/05/19 Atorvastatin Ca [Lipitor] 10 mg PO HS 12/17/19 Empagliflozin [Jardiance] 25 mg PO DAILY 12/17/19 Ferrous Sulfate [Iron] 325 mg PO BID 12/17/19 Furosemide [Lasix -] 20 mg PO DAILY 12/17/19 Quetiapine Fumarate [Seroquel -] 25 mg PO HS 12/17/19 Family Medical History Family Hx Cancer: Daughter ( of lymphoma), Sister (breast cancer) Review of Systems Unable to obtain ROS, reason: confused - Review of Systems Eyes: reports: No Symptoms Cardiovascular: reports: No Symptoms Respiratory: reports: No Symptoms Gastrointestinal: reports: No Symptoms Genitourinary: reports: No Symptoms Physical Exam Vital Signs: Vital Signs Temperature 97.8 F 12/17/19 14:00 Pulse Rate 55 L 12/17/19 14:00 Respiratory Rate 18 12/17/19 14:00 Blood Pressure 158/43 L 12/17/19 14:00 O2 Sat by Pulse Oximetry (%) 95 12/17/19 14:00 Constitutional: Yes: Anxious Eyes: Yes: Conjunctiva Clear HENT: Yes: Atraumatic Neck: Yes: Supple Cardiovascular: Yes: S1, S2 Respiratory: Yes: On Nasal O2 Gastrointestinal: Yes: Soft Renal/: Yes: Incontinence Musculoskeletal: Yes: Muscle Weakness Edema: No Neurological: Yes: Confusion Psychiatric: Yes: Agitated Labs: CBC, BMP 12/17/19 10:10 12/17/19 10:10 Laboratory Tests 10/19/19 11/04/19 11/04/19 16:50 09:49 09:49 WBC Hgb 9.0 L Plt Count ABG pH ABG pCO2 Sodium Potassium Creatinine 2.7 H 2.9 H Urine Protein COVID-19 (GIOVANI) 11/04/19 11/04/19 11/05/19 09:58 15:45 06:05 WBC Hgb Plt Count ABG pH 7.414 ABG pCO2 49.10 H Sodium 139 Potassium 4.3 Creatinine 2.7 H Urine Protein COVID-19 (GIOVANI) Pending 11/05/19 11/10/19 11/12/19 06:05 06:33 06:05 WBC 13.9 H Hgb 8.8 L Plt Count 215 ABG pH ABG pCO2 Sodium Potassium Creatinine 2.0 H 1.7 H Urine Protein COVID-19 (GIOVANI) 11/13/19 12/17/19 12/17/19 11:05 10:10 10:10 WBC 6.5 Hgb 8.9 L Plt Count 162 ABG pH ABG pCO2 Sodium 135 L Potassium 4.4 Creatinine 2.1 H 3.4 H Urine Protein COVID-19 (GIOVANI) 12/17/19 10:10 WBC Hgb Plt Count ABG pH ABG pCO2 Sodium Potassium Creatinine Urine Protein 1+ H COVID-19 (GIOVANI) Imaging - Results Chest X-ray: Report Reviewed Assessment/Plan Current Medications Generic Name Dose Route Start Last Admin Trade Name Freq PRN Reason Stop Dose Admin Albuterol Sulfate 2 puff 12/17/19 13:55 Ventolin Hfa Inhaler - IH Q6H PRN SHORTNESS OF BREATH Albuterol/Ipratropium 1 amp 12/17/19 16:00 Duoneb - NEB RQID RANJAN Amlodipine Besylate 10 mg 12/18/19 10:00 Norvasc - PO DAILY [facility] Atorvastatin Calcium 10 mg 12/17/19 22:00 Lipitor - PO HS RANJAN Carbidopa/Levodopa 1 combo 12/17/19 14:00 12/17/19 14:44 Sinemet *Cr* 50/200 - PO Not Given TID [facility] Carvedilol 25 mg 12/17/19 22:00 Coreg - PO BID RANJAN Doxazosin Mesylate 2 mg 12/18/19 22:00 Cardura - PO HS [facility] Ferrous Sulfate 325 mg 12/17/19 17:30 Feosol - PO BIDWM [facility] Hydralazine HCl 25 mg 12/17/19 22:00 Apresoline - PO BID RANJAN Ceftriaxone Sodium 1 gm/ 50 mls @ 100 mls/hr 12/18/19 10:00 Dextrose IVPB DAILY [facility] Protocol Insulin Aspart 1 vial 12/17/19 16:30 Novolog Vial Sliding Scale - SQ ACHS [facility] Protocol Pantoprazole Sodium 40 mg 12/18/19 10:00 Protonix - PO DAILY RANJAN Quetiapine Fumarate 25 mg 12/17/19 22:00 Seroquel - PO HS RANJAN Ranolazine 500 mg 12/17/19 22:00 Ranexa - PO BID RANJAN Tiotropium [place] 2 puff 12/18/19 10:00 Spiriva Respimat IH DAILY RANJAN Impression 1. ckd 2. anemia 3. chf 4. hx hemoptysis 5. ILD 6. cad 7. htn 8. a-fib 9. cva 10. ANÍBAL Plan - hold diuretics for now - repeat labs in am - check ultrasound to r/o obstruction - check ua and lytes - he is more agitated than baseline
[2019-12-17] MEDS: INSULIN SLIDING SCALE (NOVOLOG) 1 VIAL SQ SCH (18:16)
--- NOTE | 2019-12-17 18:29 | PN ---
Teaching Attending Note Name of Resident: Omar Pal ATTENDING PHYSICIAN STATEMENT I saw and evaluated the patient. I reviewed the resident's note and discussed the case with the resident. I agree with the resident's findings and plan as documented. SUBJECTIVE: Patient seen and examined at bedside, admitted for FTT, weakness, inability to walk, now denies complaints besides acute on chronic SOB, asking for something to eat. VSS. OBJECTIVE: GA tired appearing, elderly male, AAOx1 HEENT dry MM, neck supple, no oral thrush Chest coarse b/l BS w/ scattered wheezes, decreased BS b/l CVS s1, S2+, RRR Abd SOft, NT, ND, BS+ Ext no LE edema, no calf tenderness Psych AAox1, delirious, talking to himself in Italian at times Vital Signs - 24 hr 12/17/19 12/17/19 12/17/19 09:23 09:43 14:00 Temperature 98.2 F 97.8 F Pulse Rate 55 L Pulse Rate [ 55 L Apical] Respiratory 18 18 Rate Blood Pressure 167/48 L Blood Pressure 158/43 L [Right Arm] O2 Sat by Pulse 96 95 95 Oximetry (%) Laboratory Results - last 24 hr 12/17/19 12/17/19 12/17/19 10:10 10:10 10:10 WBC 6.5 RBC 2.93 L Hgb 8.9 L Hct 26.8 L MCV 91.6 MCH 30.5 MCHC 33.3 RDW 14.8 D Plt Count 162 MPV 8.7 Absolute Neuts (auto) 5.2 Neutrophils % 80.0 Lymphocytes % 10.3 D Monocytes % 7.7 Eosinophils % 1.5 Basophils % 0.5 Nucleated RBC % 0 PT with INR 17.60 H INR 1.49 H PTT (Actin FS) 42.0 H VBG pH 7.400 POC VBG pCO2 50.3 POC VBG pO2 38.0 VBG HCO3 30.5 H VBG O2 Sat (Naila) 71.3 VBG Base Excess 4.9 H Sodium Potassium Chloride Carbon Dioxide Anion Gap BUN Creatinine Est GFR (CKD-EPI)AfAm Est GFR (CKD-EPI)NonAf POC Glucometer Random Glucose Lactic Acid Calcium Total Bilirubin AST ALT Alkaline Phosphatase Troponin I Total Protein Albumin Urine Color Urine Appearance Urine pH Ur Specific [place] Urine Protein Urine Glucose (UA) Urine Ketones Urine Blood Urine Nitrite Urine Bilirubin Urine Urobilinogen Ur Leukocyte Esterase Urine WBC (Auto) Urine RBC (Auto) Urine Casts (Auto) U Epithel Cells (Auto) Urine Bacteria (Auto) 12/17/19 12/17/19 12/17/19 10:10 10:10 10:15 WBC RBC Hgb Hct MCV MCH MCHC RDW Plt Count MPV Absolute Neuts (auto) Neutrophils % Lymphocytes % Monocytes % Eosinophils % Basophils % Nucleated RBC % PT with INR INR PTT (Actin FS) VBG pH POC VBG pCO2 POC VBG pO2 VBG HCO3 VBG O2 Sat (Naila) VBG Base Excess Sodium 135 L Potassium 4.4 Chloride 96 L Carbon Dioxide 32 Anion Gap 7 L BUN 61.0 H Creatinine 3.4 H Est GFR (CKD-EPI)AfAm 18.29 Est GFR (CKD-EPI)NonAf 15.78 POC Glucometer Random Glucose 76 Lactic Acid Calcium 9.1 Total Bilirubin 0.8 AST 14 L ALT 16 Alkaline Phosphatase 70 Troponin I < 0.02 Total Protein 7.5 Albumin 3.7 Urine Color Yellow Urine Appearance Cloudy Urine pH 6.5 Ur Specific [place] 1.013 Urine Protein 1+ H Urine Glucose (UA) Negative Urine Ketones Negative Urine Blood Negative Urine Nitrite Negative Urine Bilirubin Negative Urine Urobilinogen 1.0 Ur Leukocyte Esterase 3+ H Urine WBC (Auto) 921 Urine RBC (Auto) 14 Urine Casts (Auto) 1 U Epithel Cells (Auto) 1 Urine Bacteria (Auto) 749 12/17/19 12/17/19 10:23 18:11 WBC RBC Hgb Hct MCV MCH MCHC RDW Plt Count MPV Absolute Neuts (auto) Neutrophils % Lymphocytes % Monocytes % Eosinophils % Basophils % Nucleated RBC % PT with INR INR PTT (Actin FS) VBG pH POC VBG pCO2 POC VBG pO2 VBG HCO3 VBG O2 Sat (Naila) VBG Base Excess Sodium Potassium Chloride Carbon Dioxide Anion Gap BUN Creatinine Est GFR (CKD-EPI)AfAm Est GFR (CKD-EPI)NonAf POC Glucometer 74 Random Glucose Lactic Acid 0.7 Calcium Total Bilirubin AST ALT Alkaline Phosphatase Troponin I Total Protein Albumin Urine Color Urine Appearance Urine pH Ur Specific [place] Urine Protein Urine Glucose (UA) Urine Ketones Urine Blood Urine Nitrite Urine Bilirubin Urine Urobilinogen Ur Leukocyte Esterase Urine WBC (Auto) Urine RBC (Auto) Urine Casts (Auto) U Epithel Cells (Auto) Urine Bacteria (Auto) Home Medications Medication Instructions Recorded Amlodipine Besylate [Norvasc -] 10 mg PO DAILY 11/04/19 Apixaban [Eliquis] 2.5 mg PO BID 11/04/19 Carbidopa/Levodopa *Cr* 50/200 1 combo PO TID 11/04/19 [Sinemet *Cr* 50/200 -] Carvedilol [Coreg -] 25 mg PO BID 11/04/19 Pantoprazole Sodium [Protonix] 40 mg PO DAILY 11/04/19 Ranolazine [Ranexa] 500 mg PO BID 11/04/19 Doxazosin Mesylate 2 mg PO DAILY 11/05/19 Tiotropium [place] [Spiriva] 1 inh IH DAILY 11/05/19 hydrALAZINE HCL [Apresoline -] 25 mg PO BID 11/05/19 Atorvastatin Ca [Lipitor] 10 mg PO HS 12/17/19 Empagliflozin [Jardiance] 25 mg PO DAILY 12/17/19 Ferrous Sulfate [Iron] 325 mg PO BID 12/17/19 Furosemide [Lasix -] 20 mg PO DAILY 12/17/19 Quetiapine Fumarate [Seroquel -] 25 mg PO HS 12/17/19 Current Medications Generic Name Dose Route Start Last Admin Trade Name Freq PRN Reason Stop Dose Admin Albuterol Sulfate 2 puff 12/17/19 13:55 Ventolin Hfa Inhaler - IH Q6H PRN SHORTNESS OF BREATH Albuterol/Ipratropium 1 amp 12/17/19 16:00 Duoneb - NEB RQID RANJAN Amlodipine Besylate 10 mg 12/18/19 10:00 Norvasc - PO DAILY RANJAN Atorvastatin Calcium 10 mg 12/17/19 22:00 Lipitor - PO HS RANJAN Carbidopa/Levodopa 1 combo 12/17/19 14:00 12/17/19 14:44 Sinemet *Cr* 50/200 - PO Not Given TID RANJAN Carvedilol 25 mg 12/17/19 22:00 Coreg - PO BID RANJAN Doxazosin Mesylate 2 mg 12/18/19 22:00 Cardura - PO HS [facility] Ferrous Sulfate 325 mg 12/17/19 17:30 Feosol - PO BIDWM RANJAN Hydralazine HCl 25 mg 12/17/19 22:00 Apresoline - PO BID RANJAN Ceftriaxone Sodium 1 gm/ 50 mls @ 100 mls/hr 12/18/19 10:00 Dextrose IVPB DAILY RANJAN Protocol Insulin Aspart 1 vial 12/17/19 16:30 12/17/19 18:16 Novolog Vial Sliding Scale - SQ Not Given ACHS RANJAN Protocol Pantoprazole Sodium 40 mg 12/18/19 10:00 Protonix - PO DAILY RANJAN Quetiapine Fumarate 25 mg 12/17/19 22:00 Seroquel - PO HS RANJAN Ranolazine 500 mg 12/17/19 22:00 Ranexa - PO BID [facility] Tiotropium [place] 2 puff 12/18/19 10:00 Spiriva Respimat IH DAILY [facility] ASSESSMENT AND PLAN: 84 M Acute on chronic hypercapneic and hypoxemic respiratory failure ACUTE ON CHRONIC CHF SYMPTOMATIC ANEMIA H/o HEMOPTYSIS ILD COPD Group D on home O2 HTN HLD Afib off AC ANÍBAL on CKD 4 Delirium Failure to thrive Weakness BPH Plan: Gentle hydraiton with minitoring of renal function Bladder scan, yanes catheter if obstructive Hold Lasix for now pt. appears clinically dry Duonebs PRN for SOB Ceftriaxone for UTI Follow cx Frequent re-orientation, cont. psych meds EKG for Qtc monitoring, Mg as needed for prolonged Qtc Resume BP meds Soft diet DVT ppx: SCD for now
[2019-12-17] MEDS: FERROUS SO4 325 MG TABLET (FP) PO SCH (21:08)
[2019-12-18] MEDS ORDERED: CARVEDILOL 12.5 MG TABLET (FP) ONE (01:20)
[2019-12-18] MEDS ORDERED: hydrALAZINE HCL 25 MG TABLET (FP) ONE (01:21)
[2019-12-18] MEDS ORDERED: ATORVASTATIN CA 10 MG TABLET (FP) ONE (01:21)
[2019-12-18] MEDS ORDERED: QUEtiapine FUMARATE 25 MG TABLET ONE (01:22)
[2019-12-18] MEDS: ATORVASTATIN CA 10 MG TABLET (FP) PO SCH ×2 (01:30→21:02)
[2019-12-18] MEDS: RANOLAZINE E.R. 500 MG TABLET (FP) PO SCH ×3 (01:30→21:02)
[2019-12-18] MEDS: INSULIN SLIDING SCALE (NOVOLOG) 1 VIAL SQ SCH ×5 (01:30→21:09)
[2019-12-18] MEDS: CARVEDILOL 25 MG TABLET (FP) PO SCH ×3 (01:30→21:02)
[2019-12-18] MEDS: QUEtiapine FUMARATE 25 MG TABLET PO SCH ×2 (01:30→21:02)
[2019-12-18] MEDS: hydrALAZINE HCL 25 MG TABLET (FP) PO SCH ×3 (01:30→21:02)
[2019-12-18 06:54] LABS: EPI CELLS 1 /uL (0-25.1); HYALINE CASTS 1 /uL (0-3.1); URINE APPEARANCE TURBID; URINE BILIRUBIN NEGATIVE (NEGATIVE); URINE COLOR YELLOW; URINE GLUCOSE (UA) 2+ (NEGATIVE); URINE KETONE TRACE (NEGATIVE); URINE LEUK ESTERASE 2+ (NEGATIVE); URINE NITRITE POSITIVE (NEGATIVE); URINE PROTEIN 2+ (NEGATIVE); URINE RBC 34 /uL (0-23.9); URINE UROBILINOGEN 0.2 mg/dL (0.2-1.0); URINE WBC 3034 /uL (0-25.8)
[2019-12-18] MEDS ORDERED: DEXTROSE 5%-WATER - 50 ML IVPB ONE (08:19)
[2019-12-18] MEDS ORDERED: cefTRIAXone SODIUM 1 GM VIAL ONE (08:19)
[2019-12-18 08:35] LABS: BASO % 0.7 % (0-2.0); EOS % 0.4 % (0-4.5); HEMATOCRIT 26.9 % (35.4-49); HEMOGLOBIN 8.8 GM/dL (11.7-16.9); LYMPH % 3.7 % (8-40); MCH 29.9 pg (25.7-33.7); MCHC 32.6 g/dl (32.0-35.9); MEAN CELL VOLUME 91.6 fl (80-96); MEAN PLT VOLUME 9.4 fl (7.5-11.1); MONO % 5.7 % (3.8-10.2); NEUT % 89.5 % (42.8-82.8); PLATELET COUNT 164 K/MM3 (134-434); RBC 2.93 M/mm3 (4.00-5.60); RDW 14.7 % (11.9-15.9); WHITE BLOOD COUNT 9.1 K/mm3 (4.0-10.0)
[2019-12-18 09:05] LABS: ALBUMIN 3.4 g/dl (3.4-5.0); ALK PHOS 60 U/L (45-117); ANION GAP 8 MMOL/L (8-16); BILIRUBIN,TOTAL 1.1 mg/dL (0.2-1); BLOOD UREA NITROGEN 58.4 mg/dL (7-18); CALCIUM 8.2 mg/dL (8.5-10.1); CHLORIDE 102 mmol/L (98-107); CO2 30 mmol/L (21-32); CREATININE 2.8 mg/dL (0.55-1.3); GLUCOSE,RANDOM 76 mg/dL (74-106); PHOSPHOROUS 4.5 mg/dL (2.5-4.9); POTASSIUM 4.6 mmol/L (3.5-5.1); SGOT/AST 18 U/L (15-37); SODIUM 140 mmol/L (136-145); TOT PROT 6.4 g/dl (6.4-8.2)
[2019-12-18 09:12] LABS: SGPT/ALT < 6 U/L (13-61)
[2019-12-18] MEDS ORDERED: FUROSEMIDE 20 MG TABLET (FP) PO SCH (10:00)
[2019-12-18] MEDS ORDERED: PT OWN MED DRAWER 7, Y5N ONE (10:15)
[2019-12-18] MEDS: FERROUS SO4 325 MG TABLET (FP) PO SCH ×2 (10:20→18:13)
[2019-12-18] MEDS: amLODIPine BESYLATE 10 MG TABLET (FP) PO SCH (10:20)
[2019-12-18] MEDS: CEFTRIAXONE 1 GM in DEXTROSE 5%-WATER - 50 ML IVPB SCH (10:20)
[2019-12-18] MEDS: TIOTROPIUM BROMIDE 2.5 MCG (SPIRIVA) RESPIMAT INHALER IH SCH (10:20)
[2019-12-18] MEDS: PANTOPRAZOLE 40 MG TABLET PO SCH (10:20)
[2019-12-18] MEDS: ALBUTEROL SO4 2.5/IPRATROPIUM 0.5 INH SOL 3 ML VIAL.NEB. NEB SCH ×3 (12:05→20:14)
[2019-12-18] MEDS ORDERED: SODIUM CHLORIDE 1,000 ML IV SCH (13:30)
--- NOTE | 2019-12-18 13:57 | PN ---
Teaching Attending Note Name of Resident: Beth Levy ATTENDING PHYSICIAN STATEMENT I saw and evaluated the patient. I reviewed the resident's note and discussed the case with the resident. I agree with the resident's findings and plan as documented. SUBJECTIVE: Seen and examined at bedside. Patient is alert and attentive but is difficult to understand and slurring his words as if he is recently bitten his tongue or has dysarthria. OBJECTIVE Last Vital Signs Temp Pulse Resp BP Pulse Ox 98.4 F 56 L 20 146/69 95 12/18/19 04:14 12/18/19 04:14 12/18/19 04:14 12/18/19 04:14 12/18/19 04:14 PE: Per resident note Labs/Imaging: reviewed ASSESSMENT/PLAN 84-year-old male past medical history of COPD on 2 L O2, diastolic CHF, A. fib on Eliquis, GERD, HTN, HLD, Parkinson disease, CAD, CABG x2 brought in for altered mental status and found to have UTI and ANÍBAL. #Toxic metabolic encephalopathy secondary to UTI and ANÍBAL Culture shows lactose fermenting gram-negative bacilli Continue ceftriaxone Continue fluids Follow-up urine culture #ANÍBAL on CKD stage IV: improving FENA of 1.0, consistent with prerenal etiology Continue fluid Nephrology on board: Appreciate recommendations #Normocytic anemia Follow-up iron, ferritin, reticulocyte count #COPD on home O2: At baseline Continue home O2 Spiriva Duo nebs PRN #Diastolic CHF Continue home medications #Atrial fibrillation Continue Coreg Continue Eliquis #Hypertension Continue home medications
--- NOTE | 2019-12-18 15:51 | PN ---
Progress Note, Physician History of Present Illness: Pt seen and examined at bedside. He is calmer today. - Current Medication List Current Medications: Active Medications Albuterol Sulfate (Ventolin Hfa Inhaler -) 2 puff IH Q6H PRN PRN Reason: SHORTNESS OF BREATH Albuterol/Ipratropium (Duoneb -) 1 amp NEB RQID [facility] Last Admin: 12/18/19 12:05 Dose: Not Given Documented by: Amlodipine Besylate (Norvasc -) 10 mg PO DAILY [facility] Last Admin: 12/18/19 10:20 Dose: 10 mg Documented by: Atorvastatin Calcium (Lipitor -) 10 mg PO [facility] Last Admin: 12/18/19 01:30 Dose: 10 mg Documented by: Carbidopa/Levodopa (Sinemet *Cr* 50/200 -) 1 combo PO TID [facility] Last Admin: 12/18/19 14:33 Dose: 1 combo Documented by: Carvedilol (Coreg -) 25 mg PO BID [facility] Last Admin: 12/18/19 10:20 Dose: 25 mg Documented by: Doxazosin Mesylate (Cardura -) 2 mg PO [facility] Ferrous Sulfate (Feosol -) 325 mg PO BIDWM [facility] Last Admin: 12/18/19 10:20 Dose: 325 mg Documented by: Hydralazine HCl (Apresoline -) 25 mg PO BID [facility] Last Admin: 12/18/19 10:20 Dose: 25 mg Documented by: Ceftriaxone Sodium 1 gm/ (Dextrose) 50 mls @ 100 mls/hr IVPB DAILY [facility]; Protocol Last Admin: 12/18/19 10:20 Dose: 100 mls/hr Documented by: Sodium Chloride (Normal Saline -) 1,000 mls @ 75 mls/hr IV ASDIR [facility] Stop: 12/19/19 13:30 Last Admin: 12/18/19 14:33 Dose: 75 mls/hr Documented by: Insulin Aspart (Novolog Vial Sliding Scale -) 1 vial SQ ACHS [facility]; Protocol Last Admin: 12/18/19 06:13 Dose: Not Given Documented by: Pantoprazole Sodium (Protonix -) 40 mg PO DAILY [facility] Last Admin: 12/18/19 10:20 Dose: 40 mg Documented by: Quetiapine Fumarate (Seroquel -) 25 mg PO [facility] Last Admin: 12/18/19 01:30 Dose: 25 mg Documented by: Ranolazine (Ranexa -) 500 mg PO BID [facility] Last Admin: 12/18/19 10:20 Dose: 500 mg Documented by: Tiotropium [place] (Spiriva Respimat) 2 puff IH DAILY [facility] Last Admin: 12/18/19 10:20 Dose: 2 puff Documented by: - Objective Vital Signs: Vital Signs Temperature 98.5 F 12/18/19 14:15 Pulse Rate 57 L 12/18/19 14:15 Respiratory Rate 20 12/18/19 14:15 Blood Pressure 139/40 L 12/18/19 14:15 O2 Sat by Pulse Oximetry (%) 95 12/18/19 14:15 Constitutional: Yes: Calm Eyes: Yes: Conjunctiva Clear HENT: Yes: Atraumatic Neck: Yes: Supple Cardiovascular: Yes: S1, S2 Respiratory: Yes: CTA Bilaterally Gastrointestinal: Yes: Soft Genitourinary: Yes: Incontinence Musculoskeletal: Yes: Muscle Weakness Edema: No Integumentary: Yes: WNL Neurological: Yes: Confusion Labs: CBC, BMP 12/18/19 06:55 12/18/19 06:55 INR, PTT INR 1.49 (0.83-1.09) H 12/17/19 10:10 Assessment/Plan Current Medications Generic Name Dose Route Start Last Admin Trade Name Freq PRN Reason Stop Dose Admin Albuterol Sulfate 2 puff 12/17/19 13:55 Ventolin Hfa Inhaler - IH Q6H PRN SHORTNESS OF BREATH Albuterol/Ipratropium 1 amp 12/18/19 12:00 12/18/19 12:05 Duoneb - NEB Not Given RQID RANJAN Amlodipine Besylate 10 mg 12/18/19 10:00 12/18/19 10:20 Norvasc - PO 10 mg DAILY RANJAN Administration Atorvastatin Calcium 10 mg 12/17/19 22:00 12/18/19 01:30 Lipitor - PO 10 mg HS RANJAN Administration Carbidopa/Levodopa 1 combo 12/17/19 14:00 12/18/19 14:33 Sinemet *Cr* 50/200 - PO 1 combo TID RANJAN Administration Carvedilol 25 mg 12/17/19 22:00 12/18/19 10:20 Coreg - PO 25 mg BID RANJAN Administration Doxazosin Mesylate 2 mg 12/18/19 22:00 Cardura - PO HS RANJAN Ferrous Sulfate 325 mg 12/17/19 17:30 12/18/19 10:20 Feosol - PO 325 mg BIDWM RANJAN Administration Hydralazine HCl 25 mg 12/17/19 22:00 12/18/19 10:20 Apresoline - PO 25 mg BID RANJAN Administration Ceftriaxone Sodium 1 gm/ 50 mls @ 100 mls/hr 12/18/19 10:00 12/18/19 10:20 Dextrose IVPB 100 mls/hr DAILY RANJAN Administration Protocol Sodium Chloride 1,000 mls @ 75 mls/hr 12/18/19 13:30 12/18/19 14:33 Normal Saline - IV 12/19/19 13:30 75 mls/hr ASDIR RANJAN Administration Insulin Aspart 1 vial 12/17/19 16:30 12/18/19 06:13 Novolog Vial Sliding Scale - SQ Not Given ACHS RANJAN Protocol Pantoprazole Sodium 40 mg 12/18/19 10:00 12/18/19 10:20 Protonix - PO 40 mg DAILY RANJAN Administration Quetiapine Fumarate 25 mg 12/17/19 22:00 12/18/19 01:30 Seroquel - PO 25 mg HS RANJAN Administration Ranolazine 500 mg 12/17/19 22:00 12/18/19 10:20 Ranexa - PO 500 mg BID RANJAN Administration Tiotropium [place] 2 puff 12/18/19 10:00 12/18/19 10:20 Spiriva Respimat IH 2 puff DAILY RANJAN Administration Impression 1. ckd 2. anemia 3. chf 4. hx hemoptysis 5. ILD 6. cad 7. htn 8. a-fib 9. cva 10. ANÍBAL Plan - renal function improving - keep diuretics on hold - change fluids to 1/2 ns and decrease rate - repeat labs in am - pt is calmer today - error in impression of ultrasound report, stenosis should read lipomatosis
--- NOTE | 2019-12-18 16:42 | PN ---
Physical Exam: SUBJECTIVE: Patient seen and examined at bedside. No acute events overnight. Pt dysphasic, difficult to understand. OBJECTIVE: Vital Signs Period Temp Pulse Resp BP Sys/Knutson Pulse Ox Last 24 Hr 98.1 F-98.9 F 55-66 18-20 139-156/40-69 95-96 GENERAL: Awake, alert, and fully oriented, in no acute distress. HEAD: Normal with no signs of trauma. EYES: Pupils equal, round and reactive to light, extraocular movements intact, sclera anicteric, conjunctiva clear. No lid lag. EARS, NOSE, THROAT: Ears normal, nares patent, oropharynx clear without exudates. Moist mucous membranes. NECK: Normal range of motion, supple without lymphadenopathy, JVD, or masses. LUNGS: Breath sounds equal, clear to auscultation bilaterally. No wheezes, and no crackles. No accessory muscle use. HEART: Regular rate and rhythm, normal S1 and S2 without murmur, rub or gallop. ABDOMEN: Soft, nontender, not distended, normoactive bowel sounds, no guarding, no rebound, no masses. No hepatomegaly or splenomegaly. MUSCULOSKELETAL: Normal range of motion at all joints. No bony deformities or tenderness. No CVA tenderness. UPPER EXTREMITIES: 2+ pulses, warm, well-perfused. No cyanosis. No clubbing. No peripheral edema. LOWER EXTREMITIES: 2+ pulses, warm, well-perfused. No calf tenderness. No peripheral edema. NEUROLOGICAL: Cranial nerves II-XII intact. Normal speech. Normal gait. PSYCHIATRIC: Cooperative. Good eye contact. Appropriate mood and affect. SKIN: Warm, dry, normal turgor, no rashes or lesions noted, normal capillary refill. Laboratory Results - last 24 hr 12/17/19 12/17/19 12/18/19 13:21 18:11 01:16 WBC RBC Hgb Hct MCV MCH MCHC RDW Plt Count MPV Absolute Neuts (auto) Neutrophils % Lymphocytes % Monocytes % Eosinophils % Basophils % Nucleated RBC % Sodium Potassium Chloride Carbon Dioxide Anion Gap BUN Creatinine Est GFR (CKD-EPI)AfAm Est GFR (CKD-EPI)NonAf POC Glucometer 74 84 Random Glucose Calcium Phosphorus Magnesium Total Bilirubin AST ALT Alkaline Phosphatase Total Protein Albumin TSH Urine Color Urine Appearance Urine pH Ur Specific [place] Urine Protein Urine Glucose (UA) Urine Ketones Urine Blood Urine Nitrite Urine Bilirubin Urine Urobilinogen Ur Leukocyte Esterase Urine WBC (Auto) Urine RBC (Auto) Urine Casts (Auto) U Epithel Cells (Auto) Ur Random Creatinine Ur Random Sodium Ur Random Potassium Ur Random Chloride COVID-19 (GIOVANI) Not detected 12/18/19 12/18/19 12/18/19 05:59 06:35 06:35 WBC RBC Hgb Hct MCV MCH MCHC RDW Plt Count MPV Absolute Neuts (auto) Neutrophils % Lymphocytes % Monocytes % Eosinophils % Basophils % Nucleated RBC % Sodium Potassium Chloride Carbon Dioxide Anion Gap BUN Creatinine Est GFR (CKD-EPI)AfAm Est GFR (CKD-EPI)NonAf POC Glucometer 82 Random Glucose Calcium Phosphorus Magnesium Total Bilirubin AST ALT Alkaline Phosphatase Total Protein Albumin TSH Urine Color Yellow Urine Appearance Turbid Urine pH 6.0 Ur Specific [place] 1.015 Urine Protein 2+ H Urine Glucose (UA) 2+ H Urine Ketones Trace H Urine Blood Negative Urine Nitrite Positive H Urine Bilirubin Negative Urine Urobilinogen 0.2 Ur Leukocyte Esterase 2+ H Urine WBC (Auto) 3034 Urine RBC (Auto) 34 Urine Casts (Auto) 1 U Epithel Cells (Auto) 1 Ur Random Creatinine 82.0 Ur Random Sodium 32 L Ur Random Potassium 47.0 Ur Random Chloride 33 L COVID-19 (GIOVANI) 12/18/19 12/18/19 12/18/19 06:55 06:55 16:09 WBC 9.1 RBC 2.93 L Hgb 8.8 L Hct 26.9 L MCV 91.6 MCH 29.9 MCHC 32.6 RDW 14.7 Plt Count 164 MPV 9.4 Absolute Neuts (auto) 8.1 H Neutrophils % 89.5 H Lymphocytes % 3.7 L D Monocytes % 5.7 Eosinophils % 0.4 Basophils % 0.7 Nucleated RBC % 0 Sodium 140 Potassium 4.6 Chloride 102 Carbon Dioxide 30 Anion Gap 8 BUN 58.4 H Creatinine 2.8 H Est GFR (CKD-EPI)AfAm 23.13 Est GFR (CKD-EPI)NonAf 19.96 POC Glucometer 93 Random Glucose 76 Calcium 8.2 L Phosphorus 4.5 Magnesium 3.0 H Total Bilirubin 1.1 H AST 18 ALT < 6 L Alkaline Phosphatase 60 Total Protein 6.4 Albumin 3.4 TSH 1.04 Urine Color Urine Appearance Urine pH Ur Specific [place] Urine Protein Urine Glucose (UA) Urine Ketones Urine Blood Urine Nitrite Urine Bilirubin Urine Urobilinogen Ur Leukocyte Esterase Urine WBC (Auto) Urine RBC (Auto) Urine Casts (Auto) U Epithel Cells (Auto) Ur Random Creatinine Ur Random Sodium Ur Random Potassium Ur Random Chloride COVID-19 (GIOVANI) Active Medications Generic Name Dose Route Start Last Admin Trade Name Freq PRN Reason Stop Dose Admin Albuterol Sulfate 2 puff 12/17/19 13:55 Ventolin Hfa Inhaler - IH Q6H PRN SHORTNESS OF BREATH Albuterol/Ipratropium 1 amp 12/18/19 12:00 12/18/19 15:51 Duoneb - NEB 1 amp RQID RANJAN Administration Amlodipine Besylate 10 mg 12/18/19 10:00 12/18/19 10:20 Norvasc - PO 10 mg DAILY RANJAN Administration Atorvastatin Calcium 10 mg 12/17/19 22:00 12/18/19 01:30 Lipitor - PO 10 mg HS RANJAN Administration Carbidopa/Levodopa 1 combo 12/17/19 14:00 12/18/19 14:33 Sinemet *Cr* 50/200 - PO 1 combo TID RANJAN Administration Carvedilol 25 mg 12/17/19 22:00 12/18/19 10:20 Coreg - PO 25 mg BID RANJAN Administration Doxazosin Mesylate 2 mg 12/18/19 22:00 Cardura - PO HS RANJAN Ferrous Sulfate 325 mg 12/17/19 17:30 12/18/19 10:20 Feosol - PO 325 mg BIDWM RANJAN Administration Hydralazine HCl 25 mg 12/17/19 22:00 12/18/19 10:20 Apresoline - PO 25 mg BID RANJAN Administration Ceftriaxone Sodium 1 gm/ 50 mls @ 100 mls/hr 12/18/19 10:00 12/18/19 10:20 Dextrose IVPB 100 mls/hr DAILY RANJAN Administration Protocol Sodium Chloride 1,000 mls @ 42 mls/hr 12/18/19 16:00 1/2 Normal Saline IV ASDIR RANJAN Insulin Aspart 1 vial 12/17/19 16:30 12/18/19 06:13 Novolog Vial Sliding Scale - SQ Not Given ACHS RANJAN Protocol Pantoprazole Sodium 40 mg 12/18/19 10:00 12/18/19 10:20 Protonix - PO 40 mg DAILY RANJAN Administration Quetiapine Fumarate 25 mg 12/17/19 22:00 12/18/19 01:30 Seroquel - PO 25 mg HS RANJAN Administration Ranolazine 500 mg 12/17/19 22:00 12/18/19 10:20 Ranexa - PO 500 mg BID RANJAN Administration Tiotropium [place] 2 puff 12/18/19 10:00 12/18/19 10:20 Spiriva Respimat IH 2 puff DAILY RANJAN Administration ASSESSMENT/PLAN: 84 y/o male PMH includes COPD on 2L O2, diastolic CHF, AFib on Eliquis, GERD, HTN, HLD, Parkinson's Disease, CAD with CABGx2 brought in for change in mentation. Head CT no acute changes, CXR no acute change, UA positive for 3+ LE. #Toxic Metabolic Encephalopathy; likely 2/2 UTI/ANÍBAL -Cont Ceftriaxone 1 gm QD (started 12/17/19), +UA, UCx +LFGNB -1/2NS @ 42 #ANÍBAL on CKD; Improving. Likely prerenal. -1/2 NS @ 42 -Nephro consulted #Normocytic anemia -Iron studies, ferritin, TIBC, retic count #COPD; on home 2L -Spiriva -Duonebs PRN #Diastolic CHF -Cont lasix -Daily weights #HTN; Cont home meds: Amlodipine 10 mg, Hydralazine 25 BID, Cardura 2 mg HS, Coreg 25 BID #Afib; Cont home meds: Eliquis 2.5 BID #Parkinson Disease; Cont home meds: Carbidopa/levodopa TID, Seroquel 25 HS #GERD; Cont home meds: Protonix 40 QD #FEN -PO hydration -Cont to monitor and replete as appropriate -Sodium-controlled diet #Prophylaxis DVT: Cont home Eliquis 2.5 BID GI: Cont home Protonix 40 QD Dispo -cont to monitor on med-surg Visit type - Emergency Visit Emergency Visit: Yes ED Registration Date: 12/17/19 Care time: The patient presented to the Emergency Department on the above date and was hospitalized for further evaluation of their emergent condition. - New Patient This patient is new to me today: Yes Date on this admission: 12/18/19 - Critical Care Critical Care patient: No - Discharge Referral Referred to [facility] Med P.C.: No - Medication Review Med list reviewed for High Risk Meds patients 65 and older: Yes ATTENDING PHYSICIAN STATEMENT I saw and evaluated the patient. I reviewed the resident's note and discussed the case with the resident. I agree with the resident's findings and plan as documented. SUBJECTIVE: OBJECTIVE: ASSESSMENT AND PLAN:
[2019-12-18] MEDS: SODIUM CHLORIDE 0.45% 1,000 ML IV SCH (18:13)
--- NOTE | 2019-12-18 20:30 | CONSULT ---
Consult - text type - Consultation Consultation Note: NEUROLOGY CONSULTATION is greatly appreciated: Events reviewed, patient examined. This 84 yo (pt claims 89) yo RH man with h/o HTM, DM, Chol, ASHD, AFib, COPD and PUD is well-known to me for Parkinson's disease. S/P left Carotid endarectomy Maintained on: Amlodipine; Apixaban; Carbidopa/Levodopa 50/200 TID; Carvedilol; Pantoprazole; Ranexa; doxazocim; Spiriva; hydrALAZINE; Atorvastatin; Jardiance; Ferrous Sulfate; Furosemide; and Quetiapine Fumarate [Seroquel -] 25 mg PO HS. Last seen by me on 08/23/19 when he had normal mentation and well-preserved ambulation but R hip pain into groin and R thigh with walking. Has been in [facility] for "PT" of leg weakness but now home with increased confusion, agitation, combative behavior and hallucinations. CT of head (reviewed): Moderate, diffuse atrophy and microvasular changes. Right occipital ischemic changes? Urine WBC= 3034. Now on ceftriaxone. TSH= 1.04. CCr/BUN= 3.4/61. Mg++= 3.0 mg%. YULIYA: Thin. Neck supple. Cor irreg. S/P L CEA. NEURO: Awake, confused. [facility], Dec. Mo year. Doesn't recognize me. +Glabela, snout. Fluent speech Full pozo and EOM's. No facial. Gag OK Moves all 4's well. No tremor. +cogwheeling. Decreased KJ's absent AJ's. Toes downgoing Feels touch all fours. IMP: 1. Mild-Moderate, B/L cerebral dysfunction 2. Toxic-metabolic encephalopathy due to UTI/urosepsis, dehydration and renal insufficiency. 3. Parkinson's disease 4. S/P L CEA SUGGEST: Continue antibiotics and hydration Check B12 levels Continue Sinemet CR 50/200TID @ 7, 12, 5 Give parenteral thiamine Mobilize OO Bed to chair and ambulate with PT Increase Quetiapine to 25 mg BID and 50 mg HS PRN agitation, sundowning and insomnia. Thank you very much, Daniel Yarbrough MD
[2019-12-18] MEDS: DOXAZOSIN MESYLATE 2 MG TABLET PO SCH (21:02)
[2019-12-18] MEDS: APIXABAN 2.5 MG TABLET PO SCH (21:02)
[2019-12-18] MEDS: THIAMINE HCL 200 MG/2 ML VIAL IVPB SCH (21:24)
[2019-12-19 01:17] LABS: BASO % 0.5 % (0-2.0); EOS % 1.8 % (0-4.5); HEMATOCRIT 24.3 % (35.4-49); LYMPH % 9.3 % (8-40); MCH 30.1 pg (25.7-33.7); MCHC 32.8 g/dl (32.0-35.9); MEAN CELL VOLUME 91.9 fl (80-96); MEAN PLT VOLUME 8.4 fl (7.5-11.1); MONO % 12.2 % (3.8-10.2); NEUT % 76.2 % (42.8-82.8); PLATELET COUNT 135 K/MM3 (134-434); RBC 2.65 M/mm3 (4.00-5.60); RDW 14.3 % (11.9-15.9); WHITE BLOOD COUNT 6.9 K/mm3 (4.0-10.0)
[2019-12-19] MEDS ORDERED: MELATONIN 5 MG TABLETS PO ONE (01:18)
[2019-12-19 01:51] LABS: TOTAL IRON BINDING CAPACITY 215 ug/dL (250-450)
[2019-12-19 01:53] LABS: ALBUMIN 2.9 g/dl (3.4-5.0); ALK PHOS 58 U/L (45-117); ANION GAP 6 MMOL/L (8-16); BILIRUBIN,TOTAL 0.5 mg/dL (0.2-1); BLOOD UREA NITROGEN 57.8 mg/dL (7-18); CALCIUM 7.8 mg/dL (8.5-10.1); CHLORIDE 106 mmol/L (98-107); CO2 30 mmol/L (21-32); CREATININE 2.5 mg/dL (0.55-1.3); GLUCOSE,RANDOM 88 mg/dL (74-106); IRON SERUM 14 ug/dL (50-175); MAGNESIUM 2.8 mg/dL (1.8-2.4); PHOSPHOROUS 3.4 mg/dL (2.5-4.9); POTASSIUM 4.7 mmol/L (3.5-5.1); SGOT/AST 16 U/L (15-37); SGPT/ALT < 6 U/L (13-61); SODIUM 142 mmol/L (136-145); TOT PROT 5.8 g/dl (6.4-8.2); TOTAL IRON BINDING CAPACITY 199 ug/dL (250-450)
[2019-12-19 01:53] LABS: IRON SERUM 13 ug/dL (50-175)
[2019-12-19] MEDS: INSULIN SLIDING SCALE (NOVOLOG) 1 VIAL SQ SCH ×4 (06:00→21:25)
[2019-12-19] MEDS: THIAMINE HCL 200 MG/2 ML VIAL IVPB SCH ×3 (06:00→21:38)
[2019-12-19] MEDS: ALBUTEROL SO4 2.5/IPRATROPIUM 0.5 INH SOL 3 ML VIAL.NEB. NEB SCH ×2 (08:40→12:15)
[2019-12-19] MEDS: FERROUS SO4 325 MG TABLET (FP) PO SCH ×2 (08:45→17:17)
[2019-12-19 09:34] LABS: CHLORIDE 105 mmol/L (98-107); POTASSIUM 4.5 mmol/L (3.5-5.1); SODIUM 140 mmol/L (136-145)
[2019-12-19] MEDS ORDERED: DEXTROSE 5%-WATER - 50 ML IVPB ONE (09:45)
[2019-12-19] MEDS ORDERED: cefTRIAXone SODIUM 1 GM VIAL ONE (09:45)
[2019-12-19 09:46] LABS: ALBUMIN 2.8 g/dl (3.4-5.0); ALK PHOS 55 U/L (45-117); ANION GAP 7 MMOL/L (8-16); BILIRUBIN,TOTAL 0.6 mg/dL (0.2-1); BLOOD UREA NITROGEN 57.8 mg/dL (7-18); CALCIUM 7.9 mg/dL (8.5-10.1); CO2 28 mmol/L (21-32); CREATININE 2.4 mg/dL (0.55-1.3); GLUCOSE,RANDOM 66 mg/dL (74-106); IRON SERUM 15 ug/dL (50-175); MAGNESIUM 2.8 mg/dL (1.8-2.4); PHOSPHOROUS 3.2 mg/dL (2.5-4.9); SGOT/AST 18 U/L (15-37); SGPT/ALT < 6 U/L (13-61); TOT PROT 5.7 g/dl (6.4-8.2); TOTAL IRON BINDING CAPACITY 176 ug/dL (250-450)
[2019-12-19] MEDS: CEFTRIAXONE 1 GM in DEXTROSE 5%-WATER - 50 ML IVPB SCH (09:52)
[2019-12-19] MEDS: amLODIPine BESYLATE 10 MG TABLET (FP) PO SCH (09:54)
[2019-12-19] MEDS: APIXABAN 2.5 MG TABLET PO SCH ×2 (09:54→21:37)
[2019-12-19] MEDS: CARVEDILOL 25 MG TABLET (FP) PO SCH ×2 (09:54→21:37)
[2019-12-19] MEDS: hydrALAZINE HCL 25 MG TABLET (FP) PO SCH ×2 (09:54→21:37)
[2019-12-19] MEDS: RANOLAZINE E.R. 500 MG TABLET (FP) PO SCH ×2 (09:54→21:38)
[2019-12-19] MEDS: PANTOPRAZOLE 40 MG TABLET PO SCH (09:54)
[2019-12-19] MEDS: TIOTROPIUM BROMIDE 2.5 MCG (SPIRIVA) RESPIMAT INHALER IH SCH (09:54)
[2019-12-19] MEDS: SODIUM CHLORIDE 0.45% 1,000 ML IV SCH ×2 (09:55→16:06)
[2019-12-19] MEDS ORDERED: DEXTROSE 50%-WATER - 25 GM/50 ML VIAL IVPUSH ONE (12:03)
[2019-12-19] MEDS ORDERED: DEXTROSE 50%-WATER 25 GM/50 ML DISP.SYRIN ONE (12:12)
[2019-12-19] MEDS ORDERED: IRON SUCROSE INJECTION 100 MG in SODIUM CHLORIDE 95 ML IVPB ONE (12:30)
[2019-12-19] MEDS ORDERED: HALOPERIDOL LACTATE 5 MG/ML IM ONE (13:23)
--- NOTE | 2019-12-19 13:29 | PN ---
Progress Note, Physician History of Present Illness: Pt seen and examined. He is drowsy. - Current Medication List Current Medications: Active Medications Albuterol Sulfate (Ventolin Hfa Inhaler -) 2 puff IH Q6H PRN PRN Reason: SHORTNESS OF BREATH Albuterol/Ipratropium (Duoneb -) 1 amp NEB RQID [facility] Last Admin: 12/19/19 08:40 Dose: Not Given Documented by: Amlodipine Besylate (Norvasc -) 10 mg PO DAILY [facility] Last Admin: 12/19/19 09:54 Dose: Not Given Documented by: Apixaban (Eliquis -) 2.5 mg PO BID [facility] Last Admin: 12/19/19 09:54 Dose: Not Given Documented by: Atorvastatin Calcium (Lipitor -) 10 mg PO HS [facility] Last Admin: 12/18/19 21:02 Dose: 10 mg Documented by: Carbidopa/Levodopa (Sinemet *Cr* 50/200 -) 1 combo PO TID@0700,1200,1700 [facility] Last Admin: 12/19/19 12:06 Dose: Not Given Documented by: Carvedilol (Coreg -) 25 mg PO BID [facility] Last Admin: 12/19/19 09:54 Dose: Not Given Documented by: Doxazosin Mesylate (Cardura -) 2 mg PO HS [facility] Last Admin: 12/18/19 21:02 Dose: 2 mg Documented by: Ferrous Sulfate (Feosol -) 325 mg PO BIDWM [facility] Last Admin: 12/19/19 08:45 Dose: Not Given Documented by: Haloperidol (Haldol Injection (Fast Acting) -) 0.5 mg IM ONCE ONE Stop: 12/19/19 13:24 Hydralazine HCl (Apresoline -) 25 mg PO BID [facility] Last Admin: 12/19/19 09:54 Dose: Not Given Documented by: Ceftriaxone Sodium 1 gm/ (Dextrose) 50 mls @ 100 mls/hr IVPB DAILY [facility]; Protocol Last Admin: 12/19/19 09:52 Dose: 100 mls/hr Documented by: Sodium Chloride (1/2 Normal Saline) 1,000 mls @ 42 mls/hr IV ASDIR [facility] Last Admin: 12/19/19 09:55 Dose: 42 mls/hr Documented by: Insulin Aspart (Novolog Vial Sliding Scale -) 1 vial SQ ACHS [facility]; Protocol Last Admin: 12/19/19 12:06 Dose: Not Given Documented by: Pantoprazole Sodium (Protonix -) 40 mg PO DAILY [facility] Last Admin: 12/19/19 09:54 Dose: Not Given Documented by: Quetiapine Fumarate (Seroquel -) 25 mg PO HS [facility] Last Admin: 12/18/19 21:02 Dose: 25 mg Documented by: Ranolazine (Ranexa -) 500 mg PO BID [facility] Last Admin: 12/19/19 09:54 Dose: Not Given Documented by: Thiamine HCl (Vitamin B1 Injection -) 200 mg IVPB TID [facility] Stop: 12/21/19 22:00 Last Admin: 12/19/19 06:00 Dose: 200 mg Documented by: Tiotropium [place] (Spiriva Respimat) 2 puff IH DAILY [facility] Last Admin: 12/19/19 09:54 Dose: Not Given Documented by: - Objective Vital Signs: Vital Signs Temperature 98.0 F 12/19/19 10:00 Pulse Rate 56 L 12/19/19 10:00 Respiratory Rate 18 12/19/19 10:00 Blood Pressure 108/56 L 12/19/19 10:00 O2 Sat by Pulse Oximetry (%) 94 L 12/19/19 10:00 Constitutional: Yes: Calm Eyes: Yes: Conjunctiva Clear HENT: Yes: Atraumatic Neck: Yes: Supple Cardiovascular: Yes: S1, S2 Respiratory: Yes: CTA Bilaterally Gastrointestinal: Yes: Soft Genitourinary: Yes: Incontinence Musculoskeletal: Yes: Muscle Weakness Edema: No Neurological: Yes: Lethargy Labs: CBC, BMP 12/19/19 01:00 12/19/19 07:30 INR, PTT INR 1.49 (0.83-1.09) H 12/17/19 10:10 Assessment/Plan Current Medications Generic Name Dose Route Start Last Admin Trade Name Freq PRN Reason Stop Dose Admin Albuterol Sulfate 2 puff 12/17/19 13:55 Ventolin Hfa Inhaler - IH Q6H PRN SHORTNESS OF BREATH Albuterol/Ipratropium 1 amp 12/18/19 12:00 12/18/19 12:05 Duoneb - NEB Not Given RQID [facility] Amlodipine Besylate 10 mg 12/18/19 10:00 12/18/19 10:20 Norvasc - PO 10 mg DAILY RANJAN Administration Atorvastatin Calcium 10 mg 12/17/19 22:00 12/18/19 01:30 Lipitor - PO 10 mg HS RANJAN Administration Carbidopa/Levodopa 1 combo 12/17/19 14:00 12/18/19 14:33 Sinemet *Cr* 50/200 - PO 1 combo TID RANJAN Administration Carvedilol 25 mg 12/17/19 22:00 12/18/19 10:20 Coreg - PO 25 mg BID RANJAN Administration Doxazosin Mesylate 2 mg 12/18/19 22:00 Cardura - PO HS RANJAN Ferrous Sulfate 325 mg 12/17/19 17:30 12/18/19 10:20 Feosol - PO 325 mg BIDWM RANJAN Administration Hydralazine HCl 25 mg 12/17/19 22:00 12/18/19 10:20 Apresoline - PO 25 mg BID RANJAN Administration Ceftriaxone Sodium 1 gm/ 50 mls @ 100 mls/hr 12/18/19 10:00 12/18/19 10:20 Dextrose IVPB 100 mls/hr DAILY RANJAN Administration Protocol Sodium Chloride 1,000 mls @ 75 mls/hr 12/18/19 13:30 12/18/19 14:33 Normal Saline - IV 12/19/19 13:30 75 mls/hr ASDIR RANJAN Administration Insulin Aspart 1 vial 12/17/19 16:30 12/18/19 06:13 Novolog Vial Sliding Scale - SQ Not Given ACHS RANJAN Protocol Pantoprazole Sodium 40 mg 12/18/19 10:00 12/18/19 10:20 Protonix - PO 40 mg DAILY RANJAN Administration Quetiapine Fumarate 25 mg 12/17/19 22:00 12/18/19 01:30 Seroquel - PO 25 mg HS RANJAN Administration Ranolazine 500 mg 12/17/19 22:00 12/18/19 10:20 Ranexa - PO 500 mg BID RANJAN Administration Tiotropium [place] 2 puff 12/18/19 10:00 12/18/19 10:20 Spiriva Respimat IH 2 puff DAILY RANJAN Administration Impression 1. ckd 2. anemia 3. chf 4. hx hemoptysis 5. ILD 6. cad 7. htn 8. a-fib 9. cva 10. ANÍBAL Plan - note from earlier was deleted, JRD Communication is having problems today - stopped fluids - repeat labs in am - if not eating will start d5 / - neuro follow up - error in impression of ultrasound report, stenosis should read lipomatosis
[2019-12-19] MEDS ORDERED: QUEtiapine FUMARATE 25 MG TABLET PO ONE (13:33)
--- NOTE | 2019-12-19 14:21 | PN ---
Teaching Attending Note Name of Resident: Veronica Neri ATTENDING PHYSICIAN STATEMENT I saw and evaluated the patient. I reviewed the resident's note and discussed the case with the resident. I agree with the resident's findings and plan as documented. SUBJECTIVE: Seen and examined at bedside. Patient is agitated and more confused today. Cursing and attempting to kick examiner. Had bilateral arm restraints on at time of exam. Will increase Seroquel to 25 mg twice daily. QTC noted is 468 OBJECTIVE Last Vital Signs Temp Pulse Resp BP Pulse Ox 98.0 F 56 L 18 108/56 L 94 L 12/19/19 10:00 12/19/19 10:00 12/19/19 10:00 12/19/19 10:00 12/19/19 10:00 PE: Per resident note Labs/Imaging: reviewed ASSESSMENT/PLAN 84-year-old male past medical history of COPD on 2 L O2, diastolic CHF, A. fib on Eliquis, GERD, HTN, HLD, Parkinson disease, CAD, CABG x2 brought in for altered mental status and found to have UTI and ANÍBAL. #Toxic metabolic encephalopathy +agitated delirium secondary to UTI and ANÍBAL Culture shows lactose fermenting gram-negative bacilli Continue ceftriaxone Continue fluids Follow-up urine culture -increase seroquel to 25mg BID for agitation control -f/u QTC (elevated at 468 so haldol not given) -avoid benzos/benedryl etc -avoid restraints as much as possible #ANÍBAL on CKD stage IV: improving FENA of 1.0, consistent with prerenal etiology Continue fluid Nephrology on board: Appreciate recommendations #Iron deficiency anemia -IV iron 100mg x3 -outpt scope -FOBT #COPD on home O2: At baseline Continue home O2 Spiriva Duo nebs PRN #Diastolic CHF Continue home medications #Atrial fibrillation Continue Coreg Continue Eliquis #Hypertension Continue home medications
--- NOTE | 2019-12-19 15:32 | PN ---
Physical Exam: SUBJECTIVE: Patient seen and examined at bedside- patient very confused this AM and very combative-patient now requiring wrist restraints and shouting in divehi refusing all of his home meds and his lunch OBJECTIVE: Vital Signs Period Temp Pulse Resp BP Sys/Knutson Pulse Ox Last 24 Hr 98.0 F-99.8 F 52-58 18-20 108-150/48-56 94-99 GENERAL: The patient is awake, alert, very combative screaming in [place] EYES:PEERLA: EOMI no scleral icterus . NECK: no JVD: no lymphadenopathy LUNGS: CTA B/L no rales rhonchi or wheezing HEART: Regular rate and rhythm, S1, S2 without murmur, rub or gallop. ABDOMEN: Soft, NT nD +BS in all 4 quadrants EXTREMITIES: 2+ pulses, warm, well-perfused, no edema. PSYCH: Normal mood, normal affect. SKIN: Warm, dry, normal turgor, no rashes or lesions noted Laboratory Results - last 24 hr 12/18/19 12/18/19 12/18/19 06:55 16:09 21:04 WBC RBC Hgb Hct MCV MCH MCHC RDW Plt Count MPV Absolute Neuts (auto) Neutrophils % Lymphocytes % Monocytes % Eosinophils % Basophils % Nucleated RBC % Retic Count Sodium 140 Potassium 4.6 Chloride 102 Carbon Dioxide 30 Anion Gap 8 BUN 58.4 H Creatinine 2.8 H Est GFR (CKD-EPI)AfAm 23.13 Est GFR (CKD-EPI)NonAf 19.96 POC Glucometer 93 134 Random Glucose 76 Calcium 8.2 L Phosphorus 4.5 Magnesium 3.0 H Iron 13 L TIBC 215 L Iron Saturation 6 L Unsaturated IBC 202 Ferritin 86.0 Total Bilirubin 1.1 H AST 18 ALT < 6 L Alkaline Phosphatase 60 Total Protein 6.4 Albumin 3.4 TSH 1.04 12/19/19 12/19/19 12/19/19 01:00 01:00 01:00 WBC 6.9 RBC 2.65 L Hgb 8.0 L Hct 24.3 L MCV 91.9 MCH 30.1 MCHC 32.8 RDW 14.3 Plt Count 135 MPV 8.4 D Absolute Neuts (auto) 5.3 Neutrophils % 76.2 Lymphocytes % 9.3 D Monocytes % 12.2 H D Eosinophils % 1.8 D Basophils % 0.5 Nucleated RBC % 0 Retic Count 1.12 D Sodium 142 Potassium 4.7 Chloride 106 Carbon Dioxide 30 Anion Gap 6 L BUN 57.8 H Creatinine 2.5 H Est GFR (CKD-EPI)AfAm 26.53 Est GFR (CKD-EPI)NonAf 22.89 POC Glucometer Random Glucose 88 Calcium 7.8 L Phosphorus 3.4 Magnesium 2.8 H Iron 14 L TIBC 199 L Iron Saturation 7 L Unsaturated IBC 185 L Ferritin 105.6 Total Bilirubin 0.5 AST 16 ALT < 6 L Alkaline Phosphatase 58 Total Protein 5.8 L Albumin 2.9 L TSH 12/19/19 12/19/19 12/19/19 05:54 07:30 11:52 WBC RBC Hgb Hct MCV MCH MCHC RDW Plt Count MPV Absolute Neuts (auto) Neutrophils % Lymphocytes % Monocytes % Eosinophils % Basophils % Nucleated RBC % Retic Count Sodium 140 Potassium 4.5 Chloride 105 Carbon Dioxide 28 Anion Gap 7 L BUN 57.8 H Creatinine 2.4 H Est GFR (CKD-EPI)AfAm 27.87 Est GFR (CKD-EPI)NonAf 24.04 POC Glucometer 70 60 Random Glucose 66 L Calcium 7.9 L Phosphorus 3.2 Magnesium 2.8 H Iron 15 L TIBC 176 L Iron Saturation 8 L Unsaturated IBC 161 L Ferritin 109.8 Total Bilirubin 0.6 AST 18 ALT < 6 L Alkaline Phosphatase 55 Total Protein 5.7 L Albumin 2.8 L TSH Active Medications Generic Name Dose Route Start Last Admin Trade Name Freq PRN Reason Stop Dose Admin Albuterol Sulfate 2 puff 12/17/19 13:55 Ventolin Hfa Inhaler - IH Q6H PRN SHORTNESS OF BREATH Albuterol/Ipratropium 1 amp 12/18/19 12:00 12/19/19 12:15 Duoneb - NEB Not Given RQID RANJAN Amlodipine Besylate 10 mg 12/18/19 10:00 12/19/19 09:54 Norvasc - PO Not Given DAILY RANJAN Apixaban 2.5 mg 12/18/19 22:00 12/19/19 09:54 Eliquis - PO Not Given BID RANJAN Atorvastatin Calcium 10 mg 12/17/19 22:00 12/18/19 21:02 Lipitor - PO 10 mg HS RANJAN Administration Carbidopa/Levodopa 1 combo 12/19/19 07:00 12/19/19 12:06 Sinemet *Cr* 50/200 - PO Not Given TID@0700,1200,1700 [facility] Carvedilol 25 mg 12/17/19 22:00 12/19/19 09:54 Coreg - PO Not Given BID RANJAN Doxazosin Mesylate 2 mg 12/18/19 22:00 12/18/19 21:02 Cardura - PO 2 mg HS RANJAN Administration Ferrous Sulfate 325 mg 12/17/19 17:30 12/19/19 08:45 Feosol - PO Not Given BIDWM RANJAN Hydralazine HCl 25 mg 12/17/19 22:00 12/19/19 09:54 Apresoline - PO Not Given BID RANJAN Ceftriaxone Sodium 1 gm/ 50 mls @ 100 mls/hr 12/18/19 10:00 12/19/19 09:52 Dextrose IVPB 100 mls/hr DAILY RANJAN Administration Protocol Sodium Chloride 1,000 mls @ 42 mls/hr 12/18/19 16:00 12/19/19 09:55 1/2 Normal Saline IV 42 mls/hr ASDIR RANJAN Administration Insulin Aspart 1 vial 12/17/19 16:30 12/19/19 12:06 Novolog Vial Sliding Scale - SQ Not Given ACHS [facility] Protocol Pantoprazole Sodium 40 mg 12/18/19 10:00 12/19/19 09:54 Protonix - PO Not Given DAILY [facility] Quetiapine Fumarate 25 mg 12/17/19 22:00 12/18/19 21:02 Seroquel - PO 25 mg HS RNAJAN Administration Ranolazine 500 mg 12/17/19 22:00 12/19/19 09:54 Ranexa - PO Not Given BID [facility] Thiamine HCl 200 mg 12/18/19 22:00 12/19/19 14:54 Vitamin B1 Injection - IVPB 12/21/19 22:00 200 mg TID [facility] Administration Tiotropium [place] 2 puff 12/18/19 10:00 12/19/19 09:54 Spiriva Respimat IH Not Given DAILY [facility] ASSESSMENT/PLAN: 84 y/o male PMH includes COPD on 2L O2, diastolic CHF, AFib on Eliquis, GERD, HTN, HLD, Parkinson's Disease, CAD with CABGx2 brought in for change in mentation. Head CT no acute changes, CXR no acute change, UA positive for 3+ LE. #Toxic Metabolic Encephalopathy; likely 2/2 UTI/ANÍBAL -Cont Ceftriaxone 1 gm QD (started 12/17/19), +UA, UCx +LFGNB -will increase seroquel to 25mg BID given patients agitation and combative nature -qtc 468; will repeat EKG in AM #ANÍBAL on CKD; Improving. Likely prerenal. fluids stopped today -Nephro consulted -if patient refuses food will start d51/2NS #anemia -Iron studies showing iron deficiency anemia -receievd 100 mg iron sucrose x1 -will receiev 2 more doses #COPD; on home 2L -Spiriva -Duonebs PRN #Diastolic CHF -Cont lasix -Daily weights #HTN; Cont home meds: Amlodipine 10 mg, Hydralazine 25 BID, Cardura 2 mg HS, Coreg 25 BID #Afib; Cont home meds: Eliquis 2.5 BID #Parkinson Disease; Cont home meds: Carbidopa/levodopa TID, Seroquel 25 now increased to BID #GERD; Cont home meds: Protonix 40 QD #FEN -PO hydration -Cont to monitor and replete as appropriate -Sodium-controlled diet #Prophylaxis DVT: Cont home Eliquis 2.5 BID GI: Cont home Protonix 40 QD Problem List - Problems (1) Acute on chronic kidney failure Code(s): N17.9 - ACUTE KIDNEY FAILURE, UNSPECIFIED; N18.9 - CHRONIC KIDNEY DISEASE, UNSPECIFIED Qualifiers: Acute renal failure type: unspecified Chronic kidney disease stage: unspecified stage Qualified Code(s): N17.9 - Acute kidney failure, unspecified; N18.9 - Chronic kidney disease, unspecified (2) Urinary tract infection Code(s): N39.0 - URINARY TRACT INFECTION, SITE NOT SPECIFIED Qualifiers: Urinary tract infection type: site unspecified Hematuria presence: with hematuria Qualified Code(s): N39.0 - Urinary tract infection, site not specified; R31.9 - Hematuria, unspecified (3) Anemia Code(s): D64.9 - ANEMIA, UNSPECIFIED Qualifiers: Anemia type: unspecified type Qualified Code(s): D64.9 - Anemia, unspecified (4) HTN (hypertension) Code(s): I10 - ESSENTIAL (PRIMARY) HYPERTENSION Visit type - Emergency Visit Emergency Visit: Yes ED Registration Date: 12/17/19 Care time: The patient presented to the Emergency Department on the above date and was hospitalized for further evaluation of their emergent condition. - New Patient This patient is new to me today: Yes Date on this admission: 12/19/19 - Critical Care Critical Care patient: No - Medication Review Med list reviewed for High Risk Meds patients 65 and older: Yes ATTENDING PHYSICIAN STATEMENT I saw and evaluated the patient. I reviewed the resident's note and discussed the case with the resident. I agree with the resident's findings and plan as documented. SUBJECTIVE: OBJECTIVE: ASSESSMENT AND PLAN:
[2019-12-19] MEDS ORDERED: DEXTROSE 5%-0.45% SALINE 1,000 ML IV SCH (17:30)
[2019-12-19] MEDS ORDERED: PT OWN MED DRAWER 7, Y5N ONE (21:28)
[2019-12-19] MEDS: QUEtiapine FUMARATE 25 MG TABLET PO SCH (21:37)
[2019-12-19] MEDS: DOXAZOSIN MESYLATE 2 MG TABLET PO SCH (21:37)
[2019-12-19] MEDS: ATORVASTATIN CA 10 MG TABLET (FP) PO SCH (21:38)
[2019-12-20] MEDS: THIAMINE HCL 200 MG/2 ML VIAL IVPB SCH ×3 (05:20→21:23)
[2019-12-20] MEDS: INSULIN SLIDING SCALE (NOVOLOG) 1 VIAL SQ SCH ×4 (06:06→21:35)
[2019-12-20] MEDS ORDERED: cefTRIAXone SODIUM 1 GM VIAL ONE (08:38)
[2019-12-20] MEDS ORDERED: DEXTROSE 5%-WATER - 50 ML IVPB ONE (08:38)
[2019-12-20 08:53] LABS: BASO % 0.4 % (0-2.0); EOS % 1.3 % (0-4.5); HEMATOCRIT 25.7 % (35.4-49); HEMOGLOBIN 8.2 GM/dL (11.7-16.9); LYMPH % 5.3 % (8-40); MCH 29.8 pg (25.7-33.7); MCHC 32.1 g/dl (32.0-35.9); MEAN CELL VOLUME 92.9 fl (80-96); MEAN PLT VOLUME 8.6 fl (7.5-11.1); MONO % 10.7 % (3.8-10.2); NEUT % 82.3 % (42.8-82.8); PLATELET COUNT 150 K/MM3 (134-434); RBC 2.77 M/mm3 (4.00-5.60); RDW 14.5 % (11.9-15.9); WHITE BLOOD COUNT 6.5 K/mm3 (4.0-10.0)
[2019-12-20] MEDS: hydrALAZINE HCL 25 MG TABLET (FP) PO SCH ×3 (09:02→23:00)
[2019-12-20] MEDS: PANTOPRAZOLE 40 MG TABLET PO SCH (09:03)
[2019-12-20] MEDS: amLODIPine BESYLATE 10 MG TABLET (FP) PO SCH (09:03)
[2019-12-20] MEDS: FERROUS SO4 325 MG TABLET (FP) PO SCH ×2 (09:03→16:29)
[2019-12-20] MEDS: CEFTRIAXONE 1 GM in DEXTROSE 5%-WATER - 50 ML IVPB SCH (09:03)
[2019-12-20] MEDS: CARVEDILOL 25 MG TABLET (FP) PO SCH ×3 (09:03→23:00)
[2019-12-20] MEDS: QUEtiapine FUMARATE 25 MG TABLET PO SCH ×2 (09:03→21:24)
[2019-12-20] MEDS: APIXABAN 2.5 MG TABLET PO SCH ×3 (09:03→23:00)
[2019-12-20] MEDS: RANOLAZINE E.R. 500 MG TABLET (FP) PO SCH ×2 (09:03→21:23)
[2019-12-20] MEDS: ALBUTEROL SO4 2.5/IPRATROPIUM 0.5 INH SOL 3 ML VIAL.NEB. NEB SCH ×3 (09:12→19:43)
[2019-12-20 09:38] LABS: ALBUMIN 3.1 g/dl (3.4-5.0); BILIRUBIN,TOTAL 0.6 mg/dL (0.2-1); BLOOD UREA NITROGEN 46.6 mg/dL (7-18); CREATININE 2.1 mg/dL (0.55-1.3); MAGNESIUM 2.8 mg/dL (1.8-2.4); POTASSIUM 4.1 mmol/L (3.5-5.1); TOT PROT 6.3 g/dl (6.4-8.2)
[2019-12-20] MEDS ORDERED: FUROSEMIDE 40 MG/4 ML INJECTABLE VIAL IVPUSH ONE (10:50)
[2019-12-20] MEDS: ALBUTEROL SO4 2.5/IPRATROPIUM 0.5 INH SOL 3 ML VIAL.NEB. NEB PRN (11:03)
--- NOTE | 2019-12-20 11:23 | PN ---
Teaching Attending Note Name of Resident: Veronica Neri ATTENDING PHYSICIAN STATEMENT I saw and evaluated the patient. I reviewed the resident's note and discussed the case with the resident. I agree with the resident's findings and plan as documented. SUBJECTIVE: OBJECTIVE: ASSESSMENT AND PLAN: ASSESSMENT/PLAN: 84 y/o male with a PMHx notable for COPD on 2L O2, diastolic CHF, Atrial Fibrillation on Eliquis, GERD, HTN, HLD, Parkinson's Disease, CAD with CABG x2 who presents for AMS, UA positive for UTI PLAN #Toxic Metabolic Encephalopathy; likely 2/2 UTI/ANÍBAL -Complete course of antibiotics #ANÍBAL on CKD; Improving. Likely prerenal. -Nephro consulted #anemia - s/p IV iron, monitor Hgb/Hct #COPD; on home 2L -Spiriva -Duonebs PRN #Diastolic CHF -Continue lasix -Daily weights #HTN; Continue home meds: Amlodipine 10 mg, Hydralazine 25 BID, Cardura 2 mg HS, Coreg 25 BID #Afib; Continue home meds: Eliquis 2.5 BID #Parkinson Disease; Continue home meds: Carbidopa/levodopa TID, Seroquel 25 now increased to BID
[2019-12-20] MEDS: TIOTROPIUM BROMIDE 2.5 MCG (SPIRIVA) RESPIMAT INHALER IH SCH ×2 (11:51→12:13)
[2019-12-20] MEDS ORDERED: INSULIN (NOVOLOG) ASPART 100 UNITS/ML 10ML VIAL ONE (11:54)
--- NOTE | 2019-12-20 12:39 | PN ---
Physical Exam: SUBJECTIVE: Patient seen and examined at bedside; patient is much more calm today and his mental status is much improved; he had a lot of wheezing overnight requires duoneb treatment and oxygen; OBJECTIVE: Vital Signs Period Temp Pulse Resp BP Sys/Knutson Pulse Ox Last 24 Hr 98.1 F-98.8 F 56-63 18-22 123-148/48-62 90-98 GENERAL: The patient is awake, alert, and fully oriented, in slight acute distress finishing up a duoneb treatment. EYES: PEERLA: EOMI no scleral icterus NECK:no JVD; no lymphadenopathy LUNGS: wheezes and crackles auscultated b/l. HEART: Regular rate and rhythm, S1, S2 without murmur, rub or gallop. ABDOMEN: Soft, NT ND +BS in all 4 quadrants EXTREMITIES: 2+ pulses, warm, well-perfused, no edema. PSYCH: Normal mood, normal affect. SKIN: Warm, dry, normal turgor, no rashes or lesions noted Laboratory Results - last 24 hr 12/19/19 12/19/19 12/20/19 16:37 20:35 05:16 WBC RBC Hgb Hct MCV MCH MCHC RDW Plt Count MPV Absolute Neuts (auto) Neutrophils % Lymphocytes % Monocytes % Eosinophils % Basophils % Nucleated RBC % Sodium Potassium Chloride Carbon Dioxide Anion Gap BUN Creatinine Est GFR (CKD-EPI)AfAm Est GFR (CKD-EPI)NonAf POC Glucometer 58 96 67 Random Glucose Calcium Phosphorus Magnesium Total Bilirubin AST ALT Alkaline Phosphatase Total Protein Albumin 12/20/19 12/20/19 12/20/19 08:15 08:15 11:49 WBC 6.5 RBC 2.77 L Hgb 8.2 L Hct 25.7 L MCV 92.9 MCH 29.8 MCHC 32.1 RDW 14.5 Plt Count 150 MPV 8.6 Absolute Neuts (auto) 5.4 Neutrophils % 82.3 Lymphocytes % 5.3 L D Monocytes % 10.7 H Eosinophils % 1.3 Basophils % 0.4 Nucleated RBC % 0 Sodium 142 Potassium 4.1 Chloride 107 Carbon Dioxide 27 Anion Gap 8 BUN 46.6 H Creatinine 2.1 H Est GFR (CKD-EPI)AfAm 32.75 Est GFR (CKD-EPI)NonAf 28.26 POC Glucometer 189 Random Glucose 81 Calcium 8.0 L Phosphorus 3.0 Magnesium 2.8 H Total Bilirubin 0.6 AST 19 ALT 6 L Alkaline Phosphatase 59 Total Protein 6.3 L Albumin 3.1 L Active Medications Generic Name Dose Route Start Last Admin Trade Name Frekatty PRN Reason Stop Dose Admin Albuterol Sulfate 2 puff 12/17/19 13:55 Ventolin Hfa Inhaler - IH Q6H PRN SHORTNESS OF BREATH Albuterol/Ipratropium 1 amp 12/18/19 12:00 12/20/19 11:03 Duoneb - NEB 1 amp RQID RANJAN Administration Albuterol/Ipratropium 1 amp 12/20/19 09:09 12/20/19 11:03 Duoneb - NEB 1 amp Q4H PRN Administration SHORTNESS OF BREATH Amlodipine Besylate 10 mg 12/18/19 10:00 12/20/19 09:03 Norvasc - PO 10 mg DAILY RANJAN Administration Apixaban 2.5 mg 12/18/19 22:00 12/20/19 09:03 Eliquis - PO 2.5 mg BID RANJAN Administration Atorvastatin Calcium 10 mg 12/17/19 22:00 12/19/19 21:38 Lipitor - PO 10 mg HS RANJAN Administration Carbidopa/Levodopa 1 combo 12/19/19 07:00 12/20/19 11:55 Sinemet *Cr* 50/200 - PO 1 combo TID@0700,1200,1700 RANJAN Administration Carvedilol 25 mg 12/17/19 22:00 12/20/19 09:03 Coreg - PO 25 mg BID RANJAN Administration Doxazosin Mesylate 2 mg 12/18/19 22:00 12/19/19 21:37 Cardura - PO 2 mg HS RANJAN Administration Ferrous Sulfate 325 mg 12/17/19 17:30 12/20/19 09:03 Feosol - PO 325 mg BIDWM RANJAN Administration Hydralazine HCl 25 mg 12/17/19 22:00 12/20/19 09:02 Apresoline - PO 25 mg BID RANJAN Administration Ceftriaxone Sodium 1 gm/ 50 mls @ 100 mls/hr 12/18/19 10:00 12/20/19 09:03 Dextrose IVPB 100 mls/hr DAILY RANJAN Administration Protocol Sodium Chloride 1,000 mls @ 42 mls/hr 12/18/19 16:00 12/19/19 16:06 1/2 Normal Saline IV Not Given ASDIR [facility] Insulin Aspart 1 vial 12/17/19 16:30 12/20/19 11:55 Novolog Vial Sliding Scale - SQ Not Given ACHS [facility] Protocol Pantoprazole Sodium 40 mg 12/18/19 10:00 12/20/19 09:03 Protonix - PO 40 mg DAILY RANJAN Administration Quetiapine Fumarate 25 mg 12/19/19 22:00 12/20/19 09:03 Seroquel - PO 25 mg BID RANJAN Administration Ranolazine 500 mg 12/17/19 22:00 12/20/19 09:03 Ranexa - PO 500 mg BID RANJAN Administration Thiamine HCl 200 mg 12/18/19 22:00 12/20/19 05:20 Vitamin B1 Injection - IVPB 12/21/19 22:00 200 mg TID RANJAN Administration Tiotropium [place] 2 puff 12/18/19 10:00 12/20/19 11:51 Spiriva Respimat IH Not Given DAILY [facility] ASSESSMENT/PLAN: 84 y/o male PMH includes COPD on 2L O2, diastolic CHF, AFib on Eliquis, GERD, HTN, HLD, Parkinson's Disease, CAD with CABGx2 brought in for change in mentation. Head CT no acute changes, CXR no acute change, UA positive for 3+ LE. #Toxic Metabolic Encephalopathy; likely 2/2 UTI/ANÍBAL -Cont Ceftriaxone 1 gm QD (started 12/17/19), +UA, UCx +LFGNB -increased seroquel to 25mg BID #ANÍBAL on CKD; Improving. Likely prerenal. fluids stopped today -Nephro consulted #anemia -Iron studies showing iron deficiency anemia -received 100 mg iron sucrose x2 -will receive 1 more dose tomorrow (12/20) #COPD; on home 2L -Spiriva -Duonebs PRN #Diastolic CHF CXR this AM shows congestive changes likely 2/2 fluid overload from yesterday; will stop fluids and give extra dose of lasix -Cont lasix -Daily weights -repeat CXR in AM #HTN; Cont home meds: Amlodipine 10 mg, Hydralazine 25 BID, Cardura 2 mg HS, Coreg 25 BID #Afib; Cont home meds: Eliquis 2.5 BID #Parkinson Disease; Cont home meds: Carbidopa/levodopa TID, Seroquel 25 now increased to BID #GERD; Cont home meds: Protonix 40 QD #FEN -PO hydration -Cont to monitor and replete as appropriate -Sodium-controlled diet #Prophylaxis DVT: Cont home Eliquis 2.5 BID GI: Cont home Protonix 40 QD Problem List - Problems (1) Acute on chronic kidney failure Code(s): N17.9 - ACUTE KIDNEY FAILURE, UNSPECIFIED; N18.9 - CHRONIC KIDNEY DISEASE, UNSPECIFIED Qualifiers: Acute renal failure type: unspecified Chronic kidney disease stage: unspecified stage Qualified Code(s): N17.9 - Acute kidney failure, unspecified; N18.9 - Chronic kidney disease, unspecified (2) Urinary tract infection Code(s): N39.0 - URINARY TRACT INFECTION, SITE NOT SPECIFIED Qualifiers: Urinary tract infection type: site unspecified Hematuria presence: with hematuria Qualified Code(s): N39.0 - Urinary tract infection, site not specified; R31.9 - Hematuria, unspecified (3) Anemia Code(s): D64.9 - ANEMIA, UNSPECIFIED Qualifiers: Anemia type: unspecified type Qualified Code(s): D64.9 - Anemia, unspecified (4) HTN (hypertension) Code(s): I10 - ESSENTIAL (PRIMARY) HYPERTENSION Visit type - Emergency Visit Emergency Visit: Yes ED Registration Date: 12/17/19 Care time: The patient presented to the Emergency Department on the above date and was hospitalized for further evaluation of their emergent condition. - New Patient This patient is new to me today: No - Critical Care Critical Care patient: No - Medication Review Med list reviewed for High Risk Meds patients 65 and older: Yes ATTENDING PHYSICIAN STATEMENT I saw and evaluated the patient. I reviewed the resident's note and discussed the case with the resident. I agree with the resident's findings and plan as documented. SUBJECTIVE: OBJECTIVE: ASSESSMENT AND PLAN:
[2019-12-20] MEDS ORDERED: IRON SUCROSE INJECTION 100 MG in SODIUM CHLORIDE 95 ML IVPB ONE (13:00)
--- NOTE | 2019-12-20 15:26 | PN ---
Progress Note, Physician History of Present Illness: Pt seen and examined at bedside. He is awake but confused. - Current Medication List Current Medications: Active Medications Albuterol Sulfate (Ventolin Hfa Inhaler -) 2 puff IH Q6H PRN PRN Reason: SHORTNESS OF BREATH Albuterol/Ipratropium (Duoneb -) 1 amp NEB RQID [facility] Last Admin: 12/20/19 11:03 Dose: 1 amp Documented by: Albuterol/Ipratropium (Duoneb -) 1 amp NEB Q4H PRN PRN Reason: SHORTNESS OF BREATH Last Admin: 12/20/19 11:03 Dose: 1 amp Documented by: Amlodipine Besylate (Norvasc -) 10 mg PO DAILY [facility] Last Admin: 12/20/19 09:03 Dose: 10 mg Documented by: Apixaban (Eliquis -) 2.5 mg PO BID [facility] Last Admin: 12/20/19 09:03 Dose: 2.5 mg Documented by: Atorvastatin Calcium (Lipitor -) 10 mg PO [facility] Last Admin: 12/19/19 21:38 Dose: 10 mg Documented by: Carbidopa/Levodopa (Sinemet *Cr* 50/200 -) 1 combo PO TID@0700,1200,1700 [facility] Last Admin: 12/20/19 11:55 Dose: 1 combo Documented by: Carvedilol (Coreg -) 25 mg PO BID [facility] Last Admin: 12/20/19 09:03 Dose: 25 mg Documented by: Doxazosin Mesylate (Cardura -) 2 mg PO [facility] Last Admin: 12/19/19 21:37 Dose: 2 mg Documented by: Ferrous Sulfate (Feosol -) 325 mg PO BIDWM [facility] Last Admin: 12/20/19 09:03 Dose: 325 mg Documented by: Hydralazine HCl (Apresoline -) 25 mg PO BID [facility] Last Admin: 12/20/19 09:02 Dose: 25 mg Documented by: Ceftriaxone Sodium 1 gm/ (Dextrose) 50 mls @ 100 mls/hr IVPB DAILY [facility]; Protocol Last Admin: 12/20/19 09:03 Dose: 100 mls/hr Documented by: Insulin Aspart (Novolog Vial Sliding Scale -) 1 vial SQ ACHS [facility]; Protocol Last Admin: 12/20/19 11:55 Dose: Not Given Documented by: Pantoprazole Sodium (Protonix -) 40 mg PO DAILY [facility] Last Admin: 12/20/19 09:03 Dose: 40 mg Documented by: Quetiapine Fumarate (Seroquel -) 25 mg PO BID [facility] Last Admin: 12/20/19 09:03 Dose: 25 mg Documented by: Ranolazine (Ranexa -) 500 mg PO BID [facility] Last Admin: 12/20/19 09:03 Dose: 500 mg Documented by: Thiamine HCl (Vitamin B1 Injection -) 200 mg IVPB TID [facility] Stop: 12/21/19 22:00 Last Admin: 12/20/19 14:50 Dose: 200 mg Documented by: Tiotropium [place] (Spiriva Respimat) 2 puff IH DAILY [facility] Last Admin: 12/20/19 12:13 Dose: 2 puff Documented by: - Objective Vital Signs: Vital Signs Temperature 98.8 F 12/20/19 14:46 Pulse Rate 54 L 12/20/19 14:46 Respiratory Rate 12/20/19 14:46 Blood Pressure 127/53 L 12/20/19 14:46 O2 Sat by Pulse Oximetry (%) 94 L 12/20/19 14:46 Constitutional: Yes: Calm Eyes: Yes: Conjunctiva Clear HENT: Yes: Atraumatic Cardiovascular: Yes: S1, S2 Respiratory: Yes: Rhonchi Gastrointestinal: Yes: Soft Genitourinary: Yes: Incontinence Musculoskeletal: Yes: Muscle Weakness Edema: No Neurological: Yes: Confusion Labs: CBC, BMP 12/20/19 08:15 12/20/19 08:15 INR, PTT INR 1.49 (0.83-1.09) H 12/17/19 10:10 Assessment/Plan Current Medications Generic Name Dose Route Start Last Admin Trade Name Freq PRN Reason Stop Dose Admin Albuterol Sulfate 2 puff 12/17/19 13:55 Ventolin Hfa Inhaler - IH Q6H PRN SHORTNESS OF BREATH Albuterol/Ipratropium 1 amp 12/18/19 12:00 12/20/19 11:03 Duoneb - NEB 1 amp RQID RANJAN Administration Albuterol/Ipratropium 1 amp 12/20/19 09:09 12/20/19 11:03 Duoneb - NEB 1 amp Q4H PRN Administration SHORTNESS OF BREATH Amlodipine Besylate 10 mg 09/15/20 10:00 12/20/19 09:03 Norvasc - PO 10 mg DAILY RANJAN Administration Apixaban 2.5 mg 12/18/19 22:00 12/20/19 09:03 Eliquis - PO 2.5 mg BID RANJAN Administration Atorvastatin Calcium 10 mg 12/17/19 22:00 12/19/19 21:38 Lipitor - PO 10 mg HS RANJAN Administration Carbidopa/Levodopa 1 combo 12/19/19 07:00 12/20/19 11:55 Sinemet *Cr* 50/200 - PO 1 combo TID@0700,1200,1700 RANJAN Administration Carvedilol 25 mg 12/17/19 22:00 12/20/19 09:03 Coreg - PO 25 mg BID RANJAN Administration Doxazosin Mesylate 2 mg 12/18/19 22:00 12/19/19 21:37 Cardura - PO 2 mg HS RANJAN Administration Ferrous Sulfate 325 mg 12/17/19 17:30 12/20/19 09:03 Feosol - PO 325 mg BIDWM RANJAN Administration Hydralazine HCl 25 mg 12/17/19 22:00 12/20/19 09:02 Apresoline - PO 25 mg BID RANJAN Administration Ceftriaxone Sodium 1 gm/ 50 mls @ 100 mls/hr 12/18/19 10:00 12/20/19 09:03 Dextrose IVPB 100 mls/hr DAILY RANJAN Administration Protocol Insulin Aspart 1 vial 12/17/19 16:30 12/20/19 11:55 Novolog Vial Sliding Scale - SQ Not Given ACHS [facility] Protocol Pantoprazole Sodium 40 mg 12/18/19 10:00 12/20/19 09:03 Protonix - PO 40 mg DAILY RANJAN Administration Quetiapine Fumarate 25 mg 12/19/19 22:00 12/20/19 09:03 Seroquel - PO 25 mg BID RANJAN Administration Ranolazine 500 mg 12/17/19 22:00 12/20/19 09:03 Ranexa - PO 500 mg BID RANJAN Administration Thiamine HCl 200 mg 12/18/19 22:00 12/20/19 14:50 Vitamin B1 Injection - IVPB 12/21/19 22:00 200 mg TID RANJAN Administration Tiotropium [place] 2 puff 12/18/19 10:12/20/19 12:13 Spiriva Respimat IH 2 puff DAILY RANJAN Administration Impression 1. ckd 2. anemia 3. chf 4. hx hemoptysis 5. ILD 6. cad 7. htn 8. a-fib 9. cva 10. ANÍBAL Plan - cxr reviewed - renal function stable - restart lasix - pt tolerateding diet - mental status at baseline
[2019-12-20] MEDS: FUROSEMIDE 40 MG TABLET (FP) PO SCH (16:29)
--- NOTE | 2019-12-20 16:30 | EKG ---
Test Reason : Blood Pressure : / mmHG Vent. Rate : 058 BPM Atrial Rate : 058 BPM P-R Int : 192 ms QRS Dur : 106 ms QT Int : 458 ms P-R-T Axes : 030 -44 107 degrees QTc Int : 449 ms SINUS BRADYCARDIA LEFT AXIS DEVIATION NONSPECIFIC T WAVE ABNORMALITY ABNORMAL ECG WHEN COMPARED WITH ECG OF 17-DEC-2019 09:22, [place] INTERVAL HAS DECREASED BORDERLINE CRITERIA FOR ANTERIOR INFARCT ARE NO LONGER PRESENT NONSPECIFIC T WAVE ABNORMALITY, WORSE IN LATERAL LEADS Confirmed by ELE SEGAL MD ([id number]) on 12/20/2019 4:30:15 PM Referred By: Confirmed By:ELE SEGAL MD
[2019-12-20] MEDS: ATORVASTATIN CA 10 MG TABLET (FP) PO SCH ×2 (21:22→23:00)
[2019-12-20] MEDS ORDERED: PT OWN MED DRAWER 7, Y5N ONE (21:25)
[2019-12-20] MEDS: DOXAZOSIN MESYLATE 2 MG TABLET PO SCH ×2 (21:25→23:00)
[2019-12-21] MEDS: RANOLAZINE E.R. 500 MG TABLET (FP) PO SCH ×3 (03:01→22:25)
[2019-12-21] MEDS: THIAMINE HCL 200 MG/2 ML VIAL IVPB SCH ×3 (05:57→22:28)
[2019-12-21] MEDS ORDERED: HALOPERIDOL LACTATE 5 MG/ML IM PRN (05:58)
[2019-12-21] MEDS: INSULIN SLIDING SCALE (NOVOLOG) 1 VIAL SQ SCH ×4 (06:31→22:32)
--- NOTE | 2019-12-21 07:24 | PN ---
Teaching Attending Note Name of Resident: Romy Tirado ATTENDING PHYSICIAN STATEMENT I saw and evaluated the patient. I reviewed the resident's note and discussed the case with the resident. I agree with the resident's findings and plan as documented. SUBJECTIVE: Overnight patient noted to be suffering from sundowning and given Haldol dosi ng. Patient this morning was sleeping soundly from effects of medications. otherwise remains altered for now. OBJECTIVE: Vital Signs Temperature 99.3 F 12/20/19 19:10 Pulse Rate 67 12/20/19 23:34 Respiratory Rate 20 12/20/19 23:34 Blood Pressure 134/42 L 12/20/19 23:34 O2 Sat by Pulse Oximetry (%) 98 12/20/19 23:34 PE: Gen: NAD, agitated, alert LUNG: CTA b/l without wheezes or rales CARD: RRR no murmurs ABD: Would not let me examine EXT: No edema Neuro: Moving all four extremities. Would not let examine Active Medications Albuterol Sulfate (Ventolin Hfa Inhaler -) 2 puff IH Q6H PRN PRN Reason: SHORTNESS OF BREATH Albuterol/Ipratropium (Duoneb -) 1 amp NEB RQID [facility] Last Admin: 12/21/19 07:43 Dose: Not Given Documented by: Albuterol/Ipratropium (Duoneb -) 1 amp NEB Q4H PRN PRN Reason: SHORTNESS OF BREATH Last Admin: 12/20/19 11:03 Dose: 1 amp Documented by: Amlodipine Besylate (Norvasc -) 10 mg PO DAILY [facility] Last Admin: 12/20/19 09:03 Dose: 10 mg Documented by: Apixaban (Eliquis -) 2.5 mg PO BID [facility] Last Admin: 12/20/19 23:00 Dose: Not Given Documented by: Atorvastatin Calcium (Lipitor -) 10 mg PO HS [facility] Last Admin: 12/20/19 23:00 Dose: Not Given Documented by: Carbidopa/Levodopa (Sinemet *Cr* 50/200 -) 1 combo PO TID@0700,1200,1700 [facility] Last Admin: 12/21/19 06:31 Dose: Not Given Documented by: Carvedilol (Coreg -) 25 mg PO BID [facility] Last Admin: 12/20/19 23:00 Dose: Not Given Documented by: Doxazosin Mesylate (Cardura -) 2 mg PO HS [facility] Last Admin: 12/20/19 23:00 Dose: Not Given Documented by: Ferrous Sulfate (Feosol -) 325 mg PO BIDWM [facility] Last Admin: 12/20/19 16:29 Dose: 325 mg Documented by: Furosemide (Lasix -) 80 mg PO DAILY [facility] Last Admin: 12/20/19 16:29 Dose: 80 mg Documented by: Hydralazine HCl (Apresoline -) 25 mg PO BID [facility] Last Admin: 12/20/19 23:00 Dose: Not Given Documented by: Ceftriaxone Sodium 1 gm/ (Dextrose) 50 mls @ 100 mls/hr IVPB DAILY [facility]; Protocol Last Admin: 12/20/19 09:03 Dose: 100 mls/hr Documented by: Insulin Aspart (Novolog Vial Sliding Scale -) 1 vial SQ ACHS [facility]; Protocol Last Admin: 12/21/19 06:31 Dose: Not Given Documented by: Pantoprazole Sodium (Protonix -) 40 mg PO DAILY [facility] Last Admin: 12/20/19 09:03 Dose: 40 mg Documented by: Quetiapine Fumarate (Seroquel -) 25 mg PO BID [facility] Last Admin: 12/20/19 21:24 Dose: 25 mg Documented by: Ranolazine (Ranexa -) 500 mg PO BID [facility] Last Admin: 12/21/19 03:01 Dose: Not Given Documented by: Thiamine HCl (Vitamin B1 Injection -) 200 mg IVPB TID [facility] Stop: 12/21/19 22:00 Last Admin: 12/21/19 05:57 Dose: 200 mg Documented by: Tiotropium [place] (Spiriva Respimat) 2 puff IH DAILY [facility] Last Admin: 12/20/19 12:13 Dose: 2 puff Documented by: Microbiology 12/17/19 10:20 Blood - Peripheral Venous Blood Culture - Preliminary NO GROWTH OBTAINED AFTER 72 HOURS, INCUBATION TO CONTINUE FOR 2 DAYS. 12/17/19 10:10 Blood - Peripheral Venous Blood Culture - Preliminary NO GROWTH OBTAINED AFTER 72 HOURS, INCUBATION TO CONTINUE FOR 2 DAYS. 12/17/19 10:10 Urine - Urine Clean Catch Urine Culture - Final Enterobacter Aerogenes ASSESSMENT AND PLAN: Acute metabolic encephalopathy 2/2 UTI Acute renal injury Acute volume overload with vascular congestion Iron deficiency anemia COPD on home oxygen, no in exacerbation History of HFpEF Atrial fibrillation history, rate controlled Parkinson's Disease HTN history HLD history Day 5 Rocephin to continue currently BCx/UCx as above; reviewed sensitivities Mental status without change and notable ing occurring; continue Seroquel 25mg BID (increased yesterday) --Pt can receive Zyprexa if necessary; avoid benzodiazepines and other medications on BEERS list Active diuresis in the meanwhile; continue Lasix 80mg qDaily Cr improving and likely pre-renal congestion as etiology CXR refused; would ideally want to perform for evaluation of pleural effusion improvement Continue home COPD medications and home oxygen Titrate to SpO2 89-93% Duoneb/Albuterol PRN treatments for SOB/wheezing Iron sucrose last dose today Monitor H/H and iron status Atrial fibrillation rate-controlled currently Continue all home medications including Eliquis 2.5mg BID PO Continue home antihypertensives and may need to hold during active diuresis; would hold Hydralazine if needed Continue rest of home dopaminergics Dispo: Continue monitoring. Due to patient's condition and increasing need for assistance at home, pt would require 24hr aide service to help with caregiving. Potential long-term care facility based on SW/case mgmt work DO Tiffanie Love
[2019-12-21] MEDS: ALBUTEROL SO4 2.5/IPRATROPIUM 0.5 INH SOL 3 ML VIAL.NEB. NEB SCH ×4 (07:43→21:06)
[2019-12-21] MEDS ORDERED: DEXTROSE 5%-WATER - 50 ML IVPB ONE (11:37)
[2019-12-21] MEDS ORDERED: cefTRIAXone SODIUM 1 GM VIAL ONE (11:37)
[2019-12-21] MEDS: CEFTRIAXONE 1 GM in DEXTROSE 5%-WATER - 50 ML IVPB SCH (11:40)
[2019-12-21] MEDS: FERROUS SO4 325 MG TABLET (FP) PO SCH ×2 (11:43→17:30)
[2019-12-21] MEDS: amLODIPine BESYLATE 10 MG TABLET (FP) PO SCH ×2 (11:43→17:31)
[2019-12-21] MEDS: FUROSEMIDE 40 MG TABLET (FP) PO SCH ×2 (11:43→17:30)
[2019-12-21] MEDS: APIXABAN 2.5 MG TABLET PO SCH ×2 (11:43→22:25)
[2019-12-21] MEDS: hydrALAZINE HCL 25 MG TABLET (FP) PO SCH ×2 (11:43→22:25)
[2019-12-21] MEDS: CARVEDILOL 25 MG TABLET (FP) PO SCH ×2 (11:43→22:25)
[2019-12-21] MEDS: PANTOPRAZOLE 40 MG TABLET PO SCH ×2 (11:43→17:30)
[2019-12-21] MEDS: TIOTROPIUM BROMIDE 2.5 MCG (SPIRIVA) RESPIMAT INHALER IH SCH (11:44)
[2019-12-21] MEDS: QUEtiapine FUMARATE 25 MG TABLET PO SCH (11:44)
--- NOTE | 2019-12-21 13:50 | PN ---
Progress Note, Physician History of Present Illness: Pt seen and examined at bedside. He is confused and refusing to take meds. He has paranoid thoughts and feels that the meds are poison. - Current Medication List Current Medications: Active Medications Albuterol Sulfate (Ventolin Hfa Inhaler -) 2 puff IH Q6H PRN PRN Reason: SHORTNESS OF BREATH Albuterol/Ipratropium (Duoneb -) 1 amp NEB RQID [facility] Last Admin: 12/21/19 11:17 Dose: Not Given Documented by: Albuterol/Ipratropium (Duoneb -) 1 amp NEB Q4H PRN PRN Reason: SHORTNESS OF BREATH Last Admin: 12/20/19 11:03 Dose: 1 amp Documented by: Amlodipine Besylate (Norvasc -) 10 mg PO DAILY [facility] Last Admin: 12/21/19 11:43 Dose: Not Given Documented by: Apixaban (Eliquis -) 2.5 mg PO BID [facility] Last Admin: 12/21/19 11:43 Dose: Not Given Documented by: Atorvastatin Calcium (Lipitor -) 10 mg PO [facility] Last Admin: 12/20/19 23:00 Dose: Not Given Documented by: Carbidopa/Levodopa (Sinemet *Cr* 50/200 -) 1 combo PO TID@0700,1200,1700 [facility] Last Admin: 12/21/19 12:13 Dose: Not Given Documented by: Carvedilol (Coreg -) 25 mg PO BID [facility] Last Admin: 12/21/19 11:43 Dose: Not Given Documented by: Doxazosin Mesylate (Cardura -) 2 mg PO [facility] Last Admin: 12/20/19 23:00 Dose: Not Given Documented by: Ferrous Sulfate (Feosol -) 325 mg PO BIDWM [facility] Last Admin: 12/21/19 11:43 Dose: Not Given Documented by: Furosemide (Lasix -) 80 mg PO DAILY [facility] Last Admin: 12/21/19 11:43 Dose: Not Given Documented by: Hydralazine HCl (Apresoline -) 25 mg PO BID [facility] Last Admin: 12/21/19 11:43 Dose: Not Given Documented by: Ceftriaxone Sodium 1 gm/ (Dextrose) 50 mls @ 100 mls/hr IVPB DAILY [facility]; Protocol Last Admin: 12/21/19 11:40 Dose: 100 mls/hr Documented by: Insulin Aspart (Novolog Vial Sliding Scale -) 1 vial SQ ACHS [facility]; Protocol Last Admin: 12/21/19 12:13 Dose: Not Given Documented by: Pantoprazole Sodium (Protonix -) 40 mg PO DAILY [facility] Last Admin: 12/21/19 11:43 Dose: Not Given Documented by: Quetiapine Fumarate (Seroquel -) 25 mg PO BID [facility] Last Admin: 12/21/19 11:44 Dose: Not Given Documented by: Ranolazine (Ranexa -) 500 mg PO BID [facility] Last Admin: 12/21/19 11:42 Dose: Not Given Documented by: Thiamine HCl (Vitamin B1 Injection -) 200 mg IVPB TID [facility] Stop: 12/21/19 22:00 Last Admin: 12/21/19 13:45 Dose: 200 mg Documented by: Tiotropium [place] (Spiriva Respimat) 2 puff IH DAILY [facility] Last Admin: 12/21/19 11:44 Dose: Not Given Documented by: - Objective Vital Signs: Vital Signs Temperature 99.3 F 12/20/19 19:10 Pulse Rate 67 12/20/19 23:34 Respiratory Rate 20 12/20/19 23:34 Blood Pressure 134/42 L 12/20/19 23:34 O2 Sat by Pulse Oximetry (%) 98 12/21/19 09:00 Constitutional: Yes: Anxious Eyes: Yes: Conjunctiva Clear HENT: Yes: Atraumatic Neck: Yes: Supple Cardiovascular: Yes: S1, S2 Respiratory: Yes: CTA Bilaterally Gastrointestinal: Yes: Normal Bowel Sounds, Soft Genitourinary: Yes: WNL Musculoskeletal: Yes: WNL Edema: No Neurological: Yes: Confusion Psychiatric: Yes: Agitated Labs: CBC, BMP 12/20/19 08:15 12/20/19 08:15 INR, PTT INR 1.49 (0.83-1.09) H 12/17/19 10:10 Assessment/Plan Current Medications Generic Name Dose Route Start Last Admin Trade Name Freq PRN Reason Stop Dose Admin Albuterol Sulfate 2 puff 12/17/19 13:55 Ventolin Hfa Inhaler - IH Q6H PRN SHORTNESS OF BREATH Albuterol/Ipratropium 1 amp 12/18/19 12:00 12/21/19 11:17 Duoneb - NEB Not Given RQID [facility] Albuterol/Ipratropium 1 amp 12/20/19 09:09 12/20/19 11:03 Duoneb - NEB 1 amp Q4H PRN Administration SHORTNESS OF BREATH Amlodipine Besylate 10 mg 12/18/19 10:00 12/21/19 11:43 Norvasc - PO Not Given DAILY [facility] Apixaban 2.5 mg 12/18/19 22:00 12/21/19 11:43 Eliquis - PO Not Given BID [facility] Atorvastatin Calcium 10 mg 12/17/19 22:00 12/20/19 23:00 Lipitor - PO Not Given HS [facility] Carbidopa/Levodopa 1 combo 12/19/19 07:00 12/21/19 12:13 Sinemet *Cr* 50/200 - PO Not Given TID@0700,1200,1700 [facility] Carvedilol 25 mg 12/17/19 22:00 12/21/19 11:43 Coreg - PO Not Given BID [facility] Doxazosin Mesylate 2 mg 12/18/19 22:00 12/20/19 23:00 Cardura - PO Not Given HS [facility] Ferrous Sulfate 325 mg 12/17/19 17:30 12/21/19 11:43 Feosol - PO Not Given BIDWM [facility] Furosemide 80 mg 12/20/19 15:30 12/21/19 11:43 Lasix - PO Not Given DAILY [facility] Hydralazine HCl 25 mg 12/17/19 22:00 12/21/19 11:43 Apresoline - PO Not Given BID [facility] Ceftriaxone Sodium 1 gm/ 50 mls @ 100 mls/hr 12/18/19 10:00 12/21/19 11:40 Dextrose IVPB 100 mls/hr DAILY [facility] Administration Protocol Insulin Aspart 1 vial 12/17/19 16:30 12/21/19 12:13 Novolog Vial Sliding Scale - SQ Not Given ACHS [facility] Protocol Pantoprazole Sodium 40 mg 12/18/19 10:00 12/21/19 11:43 Protonix - PO Not Given DAILY [facility] Quetiapine Fumarate 25 mg 12/19/19 22:00 12/21/19 11:44 Seroquel - PO Not Given BID [facility] Ranolazine 500 mg 12/17/19 22:00 12/21/19 11:42 Ranexa - PO Not Given BID [facility] Thiamine HCl 200 mg 12/18/19 22:00 12/21/19 13:45 Vitamin B1 Injection - IVPB 12/21/19 22:00 200 mg TID [facility] Administration Tiotropium [place] 2 puff 12/18/19 10:00 12/21/19 11:44 Spiriva Respimat IH Not Given DAILY [facility] Impression 1. ckd 2. anemia 3. chf 4. hx hemoptysis 5. ILD 6. cad 7. htn 8. a-fib 9. cva 10. ANÍBAL 11. dementia Plan - pt agitated - refusing meds - no new labs - psych follow up
--- NOTE | 2019-12-21 15:42 | PN ---
Physical Exam: SUBJECTIVE: Patient seen and examined this AM. Requied Haldol overnight from . OBJECTIVE: Vital Signs Period Temp Pulse Resp BP Sys/Knutson Pulse Ox Last 24 Hr 98.7 F-99.3 F 60-67 20-20 134-147/42-58 95-98 GENERAL: NAD EYES: EOMI NECK: Supple, no JVD LUNGS: CTAB HEART: Regular rate and rhythm, S1, S2 without murmur ABDOMEN: Soft, NT ND +BS EXTREMITIES: no edema. SKIN: Warm, dry Laboratory Last Values WBC 6.5 K/mm3 (4.0-10.0) 12/20/19 08:15 RBC 2.77 M/mm3 (4.00-5.60) L 12/20/19 08:15 Hgb 8.2 GM/dL (11.7-16.9) L 12/20/19 08:15 Hct 25.7 % (35.4-49) L 12/20/19 08:15 MCV 92.9 fl (80-96) 12/20/19 08:15 MCH 29.8 pg (25.7-33.7) 12/20/19 08:15 MCHC 32.1 g/dl (32.0-35.9) 12/20/19 08:15 RDW 14.5 % (11.9-15.9) 12/20/19 08:15 Plt Count 150 K/MM3 (134-434) 12/20/19 08:15 MPV 8.6 fl (7.5-11.1) 12/20/19 08:15 Absolute Neuts (auto) 5.4 K/mm3 (1.5-8.0) 12/20/19 08:15 Neutrophils % 82.3 % (42.8-82.8) 12/20/19 08:15 Lymphocytes % 5.3 % (8-40) L D 12/20/19 08:15 Monocytes % 10.7 % (3.8-10.2) H 12/20/19 08:15 Eosinophils % 1.3 % (0-4.5) 12/20/19 08:15 Basophils % 0.4 % (0-2.0) 12/20/19 08:15 Nucleated RBC % 0 % (0-0) 12/20/19 08:15 Retic Count 1.12 % (0.5-1.5) D 12/19/19 01:00 PT with INR 17.60 SEC (9.7-13.0) H 12/17/19 10:10 INR 1.49 (0.83-1.09) H 12/17/19 10:10 PTT (Actin FS) 42.0 SECONDS (25.2-36.5) H 12/17/19 10:10 VBG pH 7.400 (7.310-7.410) 12/17/19 10:10 POC VBG pCO2 50.3 mmHg (38-52) 12/17/19 10:10 POC VBG pO2 38.0 mmHg (28-48) 12/17/19 10:10 VBG HCO3 30.5 mmol/L (23-29) H 12/17/19 10:10 VBG O2 Sat (Naila) 71.3 % (70-80) 12/17/19 10:10 VBG Base Excess 4.9 mmol/L (-2-2) H 12/17/19 10:10 Sodium 142 mmol/L (136-145) 12/20/19 08:15 Potassium 4.1 mmol/L (3.5-5.1) 12/20/19 08:15 Chloride 107 mmol/L (98-107) 12/20/19 08:15 Carbon Dioxide 27 mmol/L (21-32) 12/20/19 08:15 Anion Gap 8 MMOL/L (8-16) 12/20/19 08:15 BUN 46.6 mg/dL (7-18) H 12/20/19 08:15 Creatinine 2.1 mg/dL (0.55-1.3) H 12/20/19 08:15 Est GFR (CKD-EPI)AfAm 32.75 12/20/19 08:15 Est GFR (CKD-EPI)NonAf 28.26 12/20/19 08:15 POC Glucometer 137 UNITS (80-120) 12/20/19 16:25 Random Glucose 81 mg/dL (74-106) 12/20/19 08:15 Lactic Acid 0.7 mmol/L (0.4-2.0) 12/17/19 10:23 Calcium 8.0 mg/dL (8.5-10.1) L 12/20/19 08:15 Phosphorus 3.0 mg/dL (2.5-4.9) 12/20/19 08:15 Magnesium 2.8 mg/dL (1.8-2.4) H 12/20/19 08:15 Iron 15 ug/dL (50-175) L 12/19/19 07:30 TIBC 176 ug/dL (250-450) L 12/19/19 07:30 Iron Saturation 8 % (17.5-39) L 12/19/19 07:30 Unsaturated IBC 161 ug/dL (200-275) L 12/19/19 07:30 Ferritin 109.8 ng/ml (8-388) 12/19/19 07:30 Total Bilirubin 0.6 mg/dL (0.2-1) 12/20/19 08:15 AST 19 U/L (15-37) 12/20/19 08:15 ALT 6 U/L (13-61) L 12/20/19 08:15 Alkaline Phosphatase 59 U/L (45-117) 12/20/19 08:15 Troponin I < 0.02 ng/ml (0.00-0.05) 12/17/19 10:15 Total Protein 6.3 g/dl (6.4-8.2) L 12/20/19 08:15 Albumin 3.1 g/dl (3.4-5.0) L 12/20/19 08:15 TSH 1.04 uIU/ml (0.358-3.74) 12/18/19 06:55 Urine Color Yellow 12/18/19 06:35 Urine Appearance Turbid 12/18/19 06:35 Urine pH 6.0 (5.0-8.0) 12/18/19 06:35 Ur Specific [place] 1.015 (1.010-1.035) 12/18/19 06:35 Urine Protein 2+ (NEGATIVE) H 12/18/19 06:35 Urine Glucose (UA) 2+ (NEGATIVE) H 12/18/19 06:35 Urine Ketones Trace (NEGATIVE) H 12/18/19 06:35 Urine Blood Negative (NEGATIVE) 12/18/19 06:35 Urine Nitrite Positive (NEGATIVE) H 12/18/19 06:35 Urine Bilirubin Negative (NEGATIVE) 12/18/19 06:35 Urine Urobilinogen 0.2 mg/dL (0.2-1.0) 12/18/19 06:35 Ur Leukocyte Esterase 2+ (NEGATIVE) H 12/18/19 06:35 Urine WBC (Auto) 3034 /uL (0-25.8) 12/18/19 06:35 Urine RBC (Auto) 34 /uL (0-23.9) 12/18/19 06:35 Urine Casts (Auto) 1 /uL (0-3.1) 12/18/19 06:35 U Epithel Cells (Auto) 1 /uL (0-25.1) 12/18/19 06:35 Urine Bacteria (Auto) 749 /uL (0-1359) 12/17/19 10:10 Ur Random Creatinine 82.0 mg/dL (30-150) 12/18/19 06:35 Ur Random Sodium 32 MMOL/L (40-220) L 12/18/19 06:35 Ur Random Potassium 47.0 MMOL/L (25-125) 12/18/19 06:35 Ur Random Chloride 33 MMOL/L (110-250) L 12/18/19 06:35 COVID-19 (GIOVANI) Not detected (Not Detected) 12/17/19 13:21 Microbiology 12/17/19 10:20 Blood - Peripheral Venous Blood Culture - Preliminary NO GROWTH OBTAINED AFTER 96 HOURS, INCUBATION TO CONTINUE FOR 1 DAYS. 12/17/19 10:10 Blood - Peripheral Venous Blood Culture - Preliminary NO GROWTH OBTAINED AFTER 96 HOURS, INCUBATION TO CONTINUE FOR 1 DAYS. 12/17/19 10:10 Urine - Urine Clean Catch Urine Culture - Final Enterobacter Aerogenes Active Medications Albuterol Sulfate (Ventolin Hfa Inhaler -) 2 puff IH Q6H PRN PRN Reason: SHORTNESS OF BREATH Albuterol/Ipratropium (Duoneb -) 1 amp NEB RQID [facility] Last Admin: 12/21/19 11:17 Dose: Not Given Documented by: Albuterol/Ipratropium (Duoneb -) 1 amp NEB Q4H PRN PRN Reason: SHORTNESS OF BREATH Last Admin: 12/20/19 11:03 Dose: 1 amp Documented by: Amlodipine Besylate (Norvasc -) 10 mg PO DAILY [facility] Last Admin: 12/21/19 11:43 Dose: Not Given Documented by: Apixaban (Eliquis -) 2.5 mg PO BID [facility] Last Admin: 12/21/19 11:43 Dose: Not Given Documented by: Atorvastatin Calcium (Lipitor -) 10 mg PO [facility] Last Admin: 12/20/19 23:00 Dose: Not Given Documented by: Carbidopa/Levodopa (Sinemet *Cr* 50/200 -) 1 combo PO TID@0700,1200,1700 [facility] Last Admin: 12/21/19 12:13 Dose: Not Given Documented by: Carvedilol (Coreg -) 25 mg PO BID [facility] Last Admin: 12/21/19 11:43 Dose: Not Given Documented by: Doxazosin Mesylate (Cardura -) 2 mg PO HS [facility] Last Admin: 12/20/19 23:00 Dose: Not Given Documented by: Ferrous Sulfate (Feosol -) 325 mg PO BIDWM [facility] Last Admin: 12/21/19 11:43 Dose: Not Given Documented by: Furosemide (Lasix -) 80 mg PO DAILY [facility] Last Admin: 12/21/19 11:43 Dose: Not Given Documented by: Hydralazine HCl (Apresoline -) 25 mg PO BID [facility] Last Admin: 12/21/19 11:43 Dose: Not Given Documented by: Ceftriaxone Sodium 1 gm/ (Dextrose) 50 mls @ 100 mls/hr IVPB DAILY [facility]; Protocol Last Admin: 12/21/19 11:40 Dose: 100 mls/hr Documented by: Insulin Aspart (Novolog Vial Sliding Scale -) 1 vial SQ [facility]; Protocol Last Admin: 12/21/19 12:13 Dose: Not Given Documented by: Pantoprazole Sodium (Protonix -) 40 mg PO DAILY [facility] Last Admin: 12/21/19 11:43 Dose: Not Given Documented by: Quetiapine Fumarate (Seroquel -) 25 mg PO BID [facility] Last Admin: 12/21/19 11:44 Dose: Not Given Documented by: Ranolazine (Ranexa -) 500 mg PO BID [facility] Last Admin: 12/21/19 11:42 Dose: Not Given Documented by: Thiamine HCl (Vitamin B1 Injection -) 200 mg IVPB TID [facility] Stop: 12/21/19 22:00 Last Admin: 12/21/19 13:45 Dose: 200 mg Documented by: Tiotropium [place] (Spiriva Respimat) 2 puff IH DAILY [facility] Last Admin: 12/21/19 11:44 Dose: Not Given Documented by: ASSESSMENT/PLAN: 84 y/o male PMH includes COPD on 2L O2, diastolic CHF, AFib on Eliquis, GERD, HTN, HLD, Parkinson's Disease, CAD with CABGx2 brought in for change in mentation likely due to UTI. #Toxic Metabolic Encephalopathy; likely 2/2 UTI/ANÍBAL -Urine cx noted above -Cont Ceftriaxone 1 gm QD (started 12/17/19) -Continue seroquel to 25mg BID -Zyprexa PRN #ANÍBAL on CKD; Improving -Nephro consulted, Appreciate rec's #Iron Deficiency anemia -received 100 mg iron sucrose x3 -Feosol #COPD; on home 2L -Spiriva -Duonebs PRN -Supplemental O2 to maintain SpO2 88-92% #Diastolic CHF -Refused CXR this AM -Cont lasix -Daily weights, Strict I&O's -repeat CXR in AM #HTN; Cont home meds: Amlodipine 10 mg, Hydralazine 25 BID, Cardura 2 mg HS, Coreg 25 BID #Afib; Cont home meds: Eliquis 2.5 BID, Coreg #Parkinson Disease; Cont home meds: Carbidopa/levodopa TID, Seroquel 25 now increased to BID #GERD; Cont home meds: Protonix 40 QD #DM -ISS BGMs ACHS #FEN -PO hydration -Cont to monitor and replete as appropriate -Sodium-controlled diet #Prophylaxis DVT: Cont home Eliquis 2.5 BID GI: Cont home Protonix 40 QD Visit type - Emergency Visit Emergency Visit: Yes ED Registration Date: 12/17/19 Care time: The patient presented to the Emergency Department on the above date and was hospitalized for further evaluation of their emergent condition. - New Patient This patient is new to me today: Yes Date on this admission: 12/21/19 - Critical Care Critical Care patient: No - Discharge Referral Referred to [facility] No - Medication Review Med list reviewed for High Risk Meds patients 65 and older: Yes ATTENDING PHYSICIAN STATEMENT I saw and evaluated the patient. I reviewed the resident's note and discussed the case with the resident. I agree with the resident's findings and plan as documented. SUBJECTIVE: OBJECTIVE: ASSESSMENT AND PLAN:
--- NOTE | 2019-12-21 17:23 | CON.PSY ---
Psychiatry Consult Chief Complaint: 84 Year old Mlae with Parkinsons's Disease seen for onset of Hallucinations and Paranoid Delusions of past 3 months according to his .. Patient has been losing weight.. On Sinemet but not on NUplazid which is a Specigic medication for PD Psychosis. Symptoms: reports: Hallucinations, Paranoia - Previous Psychiatric Treatment Outpatient: None Inpatient: None - Previous Substance Abuse Treatment Outpatient: None Inpatient: None - Current Medications Current Medications: Active Medications Albuterol Sulfate (Ventolin Hfa Inhaler -) 2 puff IH Q6H PRN PRN Reason: SHORTNESS OF BREATH Albuterol/Ipratropium (Duoneb -) 1 amp NEB RQID PENDING SALE TO [facility] Last Admin: 12/21/19 15:47 Dose: 1 amp Documented by: Albuterol/Ipratropium (Duoneb -) 1 amp NEB Q4H PRN PRN Reason: SHORTNESS OF BREATH Last Admin: 12/20/19 11:03 Dose: 1 amp Documented by: Amlodipine Besylate (Norvasc -) 10 mg PO DAILY [facility] Last Admin: 12/21/19 11:43 Dose: Not Given Documented by: Apixaban (Eliquis -) 2.5 mg PO BID [facility] Last Admin: 12/21/19 11:43 Dose: Not Given Documented by: Atorvastatin Calcium (Lipitor -) 10 mg PO HS [facility] Last Admin: 12/20/19 23:00 Dose: Not Given Documented by: Carbidopa/Levodopa (Sinemet *Cr* 50/200 -) 1 combo PO TID@0700,1200,1700 [facility] Last Admin: 12/21/19 12:13 Dose: Not Given Documented by: Carvedilol (Coreg -) 25 mg PO BID [facility] Last Admin: 12/21/19 11:43 Dose: Not Given Documented by: Doxazosin Mesylate (Cardura -) 2 mg PO HS [facility] Last Admin: 12/20/19 23:00 Dose: Not Given Documented by: Ferrous Sulfate (Feosol -) 325 mg PO BIDWM [facility] Last Admin: 12/21/19 11:43 Dose: Not Given Documented by: Furosemide (Lasix -) 80 mg PO DAILY [facility] Last Admin: 12/21/19 11:43 Dose: Not Given Documented by: Hydralazine HCl (Apresoline -) 25 mg PO BID [facility] Last Admin: 12/21/19 11:43 Dose: Not Given Documented by: Ceftriaxone Sodium 1 gm/ (Dextrose) 50 mls @ 100 mls/hr IVPB DAILY [facility]; Protocol Last Admin: 12/21/19 11:40 Dose: 100 mls/hr Documented by: Insulin Aspart (Novolog Vial Sliding Scale -) 1 vial SQ ACHS [facility]; Protocol Last Admin: 12/21/19 12:13 Dose: Not Given Documented by: Olanzapine (Zyprexa -) 2.5 mg PO BID [facility] Pantoprazole Sodium (Protonix -) 40 mg PO DAILY [facility] Last Admin: 12/21/19 11:43 Dose: Not Given Documented by: Ranolazine (Ranexa -) 500 mg PO BID [facility] Last Admin: 12/21/19 11:42 Dose: Not Given Documented by: Thiamine HCl (Vitamin B1 Injection -) 200 mg IVPB TID PEND[facility] SALE TO [facility] Stop: 12/21/19 22:00 Last Admin: 12/21/19 13:45 Dose: 200 mg Documented by: Tiotropium [place] (Spiriva Respimat) 2 puff IH DAILY [facility] Last Admin: 12/21/19 11:44 Dose: Not Given Documented by: - Allergies Allergies: Allergies Allergy/AdvReac Type Severity Reaction Status Date / Time No Known Allergies Allergy Verified 12/17/19 09:29 - Current Living Status Usual Living Arrangement: Assisted - Current Mental Status Evaluation Appearance: Disheveled Attitude: Guarded - Affect Affect: Labile Appropriateness: Not Appropriate - Mood Mood: Angry - Speech/Language Expressive: Coherent Receptive: Age Appropriate Comprehension of Spoken Words - Psychomotor Activity Psychomotor Activity: Hyperactive - Thought Process Thought Process: Circumstantial - Thought Content Type: Auditory Type: Persectory - Self Perception Self Perception: No Impairment - Cognition Attention: Alert Memory, Immediate Recall: Impaired Memory, Short Term: 2/3 Memory, Remote with Promptin/3 - Concentration Serial Sevens Intact: No Simple Calculations Intact: No - Abstraction Proverb Interpretation: Impaired Judgement: Moderately Impaired - Insight Insight: Impaired - Impulse Control Impulse Control: Moderately Impaired - Suicidal Ideation Suicidal Ideation: No - Homicidal Ideation Homicidal Ideation: No Assessment/Plan 1) Will switch to Zyprexa 2.5 mg po bid for Psychosis. 2) Would recemmend getting Nuplazid 34 mg po od for Parkinsons disease Psychosis.
[2019-12-21] MEDS ORDERED: PT OWN MED DRAWER 7, Y5N ONE ×2 (17:27→22:27)
[2019-12-21] MEDS: ATORVASTATIN CA 10 MG TABLET (FP) PO SCH (22:25)
[2019-12-21] MEDS: DOXAZOSIN MESYLATE 2 MG TABLET PO SCH (22:27)
[2019-12-21] MEDS: OLANZapine 2.5 MG TABLET PO SCH (22:28)
[2019-12-22] MEDS: INSULIN SLIDING SCALE (NOVOLOG) 1 VIAL SQ SCH ×4 (06:24→21:50)
[2019-12-22] MEDS: ALBUTEROL SO4 2.5/IPRATROPIUM 0.5 INH SOL 3 ML VIAL.NEB. NEB SCH ×4 (08:10→20:58)
[2019-12-22 08:38] LABS: EOS % 3.2 % (0-4.5); HEMATOCRIT 26.7 % (35.4-49); HEMOGLOBIN 9.1 GM/dL (11.7-16.9); LYMPH % 10.9 % (8-40); MCH 30.9 pg (25.7-33.7); MCHC 33.9 g/dl (32.0-35.9); MEAN PLT VOLUME 9.1 fl (7.5-11.1); MONO % 12.7 % (3.8-10.2); NEUT % 72.2 % (42.8-82.8); PLATELET COUNT 187 K/MM3 (134-434); RBC 2.93 M/mm3 (4.00-5.60); RDW 14.8 % (11.9-15.9); WHITE BLOOD COUNT 5.1 K/mm3 (4.0-10.0)
[2019-12-22 08:47] LABS: ALBUMIN 2.9 g/dl (3.4-5.0); ALK PHOS 61 U/L (45-117); ANION GAP 5 MMOL/L (8-16); BILIRUBIN,TOTAL 0.5 mg/dL (0.2-1); BLOOD UREA NITROGEN 41.6 mg/dL (7-18); CALCIUM 8.1 mg/dL (8.5-10.1); CHLORIDE 104 mmol/L (98-107); CO2 34 mmol/L (21-32); GLUCOSE,RANDOM 81 mg/dL (74-106); MAGNESIUM 2.2 mg/dL (1.8-2.4); PHOSPHOROUS 3.4 mg/dL (2.5-4.9); POTASSIUM 3.7 mmol/L (3.5-5.1); SGOT/AST 17 U/L (15-37); SGPT/ALT < 6 U/L (13-61); SODIUM 143 mmol/L (136-145); TOT PROT 5.9 g/dl (6.4-8.2)
[2019-12-22] MEDS ORDERED: cefTRIAXone SODIUM 1 GM VIAL ONE (09:31)
[2019-12-22] MEDS ORDERED: DEXTROSE 5%-WATER - 50 ML IVPB ONE (09:31)
[2019-12-22] MEDS ORDERED: PT OWN MED DRAWER 7, Y5N ONE ×2 (09:32→21:09)
[2019-12-22] MEDS: RANOLAZINE E.R. 500 MG TABLET (FP) PO SCH ×2 (09:34→21:47)
[2019-12-22] MEDS: CEFTRIAXONE 1 GM in DEXTROSE 5%-WATER - 50 ML IVPB SCH (09:34)
[2019-12-22] MEDS: amLODIPine BESYLATE 10 MG TABLET (FP) PO SCH (09:34)
[2019-12-22] MEDS: PANTOPRAZOLE 40 MG TABLET PO SCH (09:34)
[2019-12-22] MEDS: FUROSEMIDE 40 MG TABLET (FP) PO SCH (09:34)
[2019-12-22] MEDS: CARVEDILOL 25 MG TABLET (FP) PO SCH ×2 (09:34→21:47)
[2019-12-22] MEDS: APIXABAN 2.5 MG TABLET PO SCH ×2 (09:35→21:47)
[2019-12-22] MEDS: hydrALAZINE HCL 25 MG TABLET (FP) PO SCH ×2 (09:35→21:47)
[2019-12-22] MEDS: OLANZapine 2.5 MG TABLET PO SCH ×2 (09:35→21:47)
[2019-12-22] MEDS: FERROUS SO4 325 MG TABLET (FP) PO SCH ×2 (09:35→16:55)
[2019-12-22] MEDS: TIOTROPIUM BROMIDE 2.5 MCG (SPIRIVA) RESPIMAT INHALER IH SCH (09:40)
--- NOTE | 2019-12-22 12:12 | PN ---
Progress Note (short form) - Note Progress Note: SUBJECTIVE: Seen and examined at bedside. Patient is alert and oriented x3, conversant, and very polite. Per nursing staff overnight patient was agitated but did not require Haldol. Will check EKG to follow-up QTC, and if able will increase nighttime dose to 50 mg Seroquel. OBJECTIVE Last Vital Signs Temp Pulse Resp BP Pulse Ox 98.0 F 56 L 18 108/56 L 94 L 12/19/19 10:00 12/19/19 10:00 12/19/19 10:00 12/19/19 10:00 12/19/19 10:00 PE: Per resident note Labs/Imaging: reviewed ASSESSMENT/PLAN 84-year-old male past medical history of COPD on 2 L O2, diastolic CHF, A. fib on Eliquis, GERD, HTN, HLD, Parkinson disease, CAD, CABG x2 brought in for altered mental status and found to have UTI and ANÍBAL. #Toxic metabolic encephalopathy +agitated delirium secondary to UTI and ANÍBAL -avoid benzos/benedryl etc -avoid restraints as much as possible #Prerenal ANÍBAL on CKD stage IV: Resovled Nephrology on board: Appreciate recommendations #Iron deficiency anemia -received 200mg IV iron -cont PO iron -outpt scope -FOBT #COPD on home O2: At baseline Continue home O2 Spiriva Duo nebs PRN #Diastolic CHF Continue home medications #Atrial fibrillation Continue Coreg Continue Eliquis #Hypertension Continue home medications Visit type - Emergency Visit Emergency Visit: Yes ED Registration Date: 12/17/19 Care time: The patient presented to the Emergency Department on the above date and was hospitalized for further evaluation of their emergent condition. - New Patient This patient is new to me today: No - Critical Care Critical Care patient: No - Medication Review Med list reviewed for High Risk Meds patients 65 and older: Yes
[2019-12-22 12:55] LABS: ARTERIAL BLD GAS O2 SATURATION 96.8 mmHg (95-98)
[2019-12-22 12:56] LABS: ALLENS TEST POSITIVE
[2019-12-22] MEDS ORDERED: INSULIN (NOVOLOG) ASPART 100 UNITS/ML 10ML VIAL ONE (17:03)
[2019-12-22] MEDS: DOXAZOSIN MESYLATE 2 MG TABLET PO SCH (21:47)
[2019-12-22] MEDS: ATORVASTATIN CA 10 MG TABLET (FP) PO SCH (21:47)
[2019-12-23] MEDS: INSULIN SLIDING SCALE (NOVOLOG) 1 VIAL SQ SCH ×4 (06:13→21:48)
[2019-12-23 08:37] LABS: HEMATOCRIT 26.2 % (35.4-49); HEMOGLOBIN 8.7 GM/dL (11.7-16.9); MCH 30.1 pg (25.7-33.7); MCHC 33.3 g/dl (32.0-35.9); MEAN CELL VOLUME 90.4 fl (80-96); MEAN PLT VOLUME 8.8 fl (7.5-11.1); PLATELET COUNT 198 K/MM3 (134-434); RDW 14.8 % (11.9-15.9); WHITE BLOOD COUNT 4.9 K/mm3 (4.0-10.0)
[2019-12-23 08:45] LABS: BLOOD UREA NITROGEN 42.6 mg/dL (7-18); CALCIUM 8.3 mg/dL (8.5-10.1); CREATININE 1.8 mg/dL (0.55-1.3)
[2019-12-23] MEDS ORDERED: cefTRIAXone SODIUM 1 GM VIAL ONE (09:22)
[2019-12-23] MEDS ORDERED: DEXTROSE 5%-WATER - 50 ML IVPB ONE (09:22)
[2019-12-23] MEDS: CEFTRIAXONE 1 GM in DEXTROSE 5%-WATER - 50 ML IVPB SCH (09:26)
[2019-12-23] MEDS: RANOLAZINE E.R. 500 MG TABLET (FP) PO SCH ×2 (09:26→21:48)
[2019-12-23] MEDS: amLODIPine BESYLATE 10 MG TABLET (FP) PO SCH (09:26)
[2019-12-23] MEDS: hydrALAZINE HCL 25 MG TABLET (FP) PO SCH ×2 (09:26→21:48)
[2019-12-23] MEDS: APIXABAN 2.5 MG TABLET PO SCH ×2 (09:26→21:48)
[2019-12-23] MEDS: CARVEDILOL 25 MG TABLET (FP) PO SCH ×2 (09:26→21:48)
[2019-12-23] MEDS: FUROSEMIDE 40 MG TABLET (FP) PO SCH (09:26)
[2019-12-23] MEDS: PANTOPRAZOLE 40 MG TABLET PO SCH (09:26)
[2019-12-23] MEDS: TIOTROPIUM BROMIDE 2.5 MCG (SPIRIVA) RESPIMAT INHALER IH SCH (09:27)
[2019-12-23] MEDS: FERROUS SO4 325 MG TABLET (FP) PO SCH ×2 (09:27→17:12)
[2019-12-23] MEDS ORDERED: PT OWN MED DRAWER 7, Y5N ONE ×2 (09:29→21:27)
[2019-12-23] MEDS: OLANZapine 2.5 MG TABLET PO SCH ×2 (09:29→21:48)
--- NOTE | 2019-12-23 09:32 | EKG ---
Test Reason : Blood Pressure : / mmHG Vent. Rate : 052 BPM Atrial Rate : 052 BPM P-R Int : 176 ms QRS Dur : 096 ms QT Int : 504 ms P-R-T Axes : 052 -57 038 degrees QTc Int : 468 ms SINUS BRADYCARDIA LEFT ANTERIOR FASCICULAR BLOCK T WAVE ABNORMALITY, CONSIDER ANTEROLATERAL ISCHEMIA PROLONGED QT ABNORMAL ECG WHEN COMPARED WITH ECG OF 20-DEC-2019 12:09, NO SIGNIFICANT CHANGE WAS FOUND Confirmed by Nellie Valdez ([id number]) on 12/23/2019 9:32:00 AM Referred By: Confirmed By:Nellie Valdez
[2019-12-23] MEDS: ALBUTEROL SO4 2.5/IPRATROPIUM 0.5 INH SOL 3 ML VIAL.NEB. NEB SCH ×2 (10:16→17:12)
--- NOTE | 2019-12-23 12:33 | PN ---
Progress Note (short form) - Note Progress Note: SUBJECTIVE: Seen and examined at bedside. Patient is alert and oriented x3, conversant, hemodynamically stable. Patient is medically cleared for discharge, pending dispo tomorrow to [facility] OBJECTIVE Last Vital Signs Temp Pulse Resp BP Pulse Ox 98.0 F 54 L 18 139/46 L 96 12/23/19 09:09 12/23/19 09:09 12/23/19 09:09 12/23/19 09:09 12/23/19 09:09 PE: Per resident note Labs/Imaging: reviewed ASSESSMENT/PLAN 84-year-old male past medical history of COPD on 2 L O2, diastolic CHF, A. fib on Eliquis, GERD, HTN, HLD, Parkinson disease, CAD, CABG x2 brought in for altered mental status and found to have UTI and ANÍBAL. #Toxic metabolic encephalopathy +agitated delirium secondary to UTI and ANÍBAL: resolved -avoid benzos/benedryl etc -stable on zyprexa BID #Prerenal ANÍBAL on CKD stage IV: Resovled Nephrology on board: Appreciate recommendations #Iron deficiency anemia -received 200mg IV iron -cont PO iron -outpt scope -FOBT #COPD on home O2: At baseline Continue home O2 Spiriva Duo nebs PRN #Diastolic CHF Continue home medications #Atrial fibrillation Continue Coreg Continue Eliquis #Hypertension Continue home medications Visit type - Emergency Visit Emergency Visit: Yes ED Registration Date: 12/17/19 Care time: The patient presented to the Emergency Department on the above date and was hospitalized for further evaluation of their emergent condition. - New Patient This patient is new to me today: No - Critical Care Critical Care patient: No - Medication Review Med list reviewed for High Risk Meds patients 65 and older: Yes
[2019-12-23] MEDS: ALBUTEROL SO4 2.5/IPRATROPIUM 0.5 INH SOL 3 ML VIAL.NEB. NEB PRN (20:51)
[2019-12-23] MEDS: ATORVASTATIN CA 10 MG TABLET (FP) PO SCH (21:48)
[2019-12-23] MEDS: DOXAZOSIN MESYLATE 2 MG TABLET PO SCH (21:48)
[2019-12-24] MEDS: INSULIN SLIDING SCALE (NOVOLOG) 1 VIAL SQ SCH ×4 (06:32→21:43)
[2019-12-24] MEDS ORDERED: cefTRIAXone SODIUM 1 GM VIAL ONE (09:48)
[2019-12-24] MEDS ORDERED: DEXTROSE 5%-WATER - 50 ML IVPB ONE (09:48)
[2019-12-24] MEDS: CARVEDILOL 25 MG TABLET (FP) PO SCH ×2 (09:51→21:43)
[2019-12-24] MEDS: amLODIPine BESYLATE 10 MG TABLET (FP) PO SCH (09:51)
[2019-12-24] MEDS: RANOLAZINE E.R. 500 MG TABLET (FP) PO SCH ×2 (09:51→21:43)
[2019-12-24] MEDS: hydrALAZINE HCL 25 MG TABLET (FP) PO SCH ×2 (09:51→21:43)
[2019-12-24] MEDS: FUROSEMIDE 40 MG TABLET (FP) PO SCH (09:51)
[2019-12-24] MEDS: FERROUS SO4 325 MG TABLET (FP) PO SCH ×2 (09:52→16:58)
[2019-12-24] MEDS: OLANZapine 2.5 MG TABLET PO SCH ×2 (09:52→21:43)
[2019-12-24] MEDS: APIXABAN 2.5 MG TABLET PO SCH ×2 (09:52→21:43)
[2019-12-24] MEDS: CEFTRIAXONE 1 GM in DEXTROSE 5%-WATER - 50 ML IVPB SCH (09:52)
[2019-12-24] MEDS: TIOTROPIUM BROMIDE 2.5 MCG (SPIRIVA) RESPIMAT INHALER IH SCH (09:52)
[2019-12-24] MEDS: PANTOPRAZOLE 40 MG TABLET PO SCH (09:52)
--- NOTE | 2019-12-24 11:06 | EKG ---
Test Reason : Blood Pressure : / mmHG Vent. Rate : 054 BPM Atrial Rate : 054 BPM P-R Int : 188 ms QRS Dur : 098 ms QT Int : 500 ms P-R-T Axes : 084 -53 059 degrees QTc Int : 474 ms SINUS BRADYCARDIA LEFT ANTERIOR FASCICULAR BLOCK NONSPECIFIC T WAVE ABNORMALITY PROLONGED QT ABNORMAL ECG WHEN COMPARED WITH ECG OF 22-DEC-2019 12:58, T WAVE VARIATION Confirmed by JOSSIE ORTEGA, DEMI ([id number]) on 12/24/2019 11:05:56 AM Referred By: Confirmed By:DEMI SETHI MD
--- NOTE | 2019-12-24 13:37 | PN ---
Teaching Attending Note Name of Resident: Duane Hunt ATTENDING PHYSICIAN STATEMENT I saw and evaluated the patient. I reviewed the resident's note and discussed the case with the resident. I agree with the resident's findings and plan as documented. SUBJECTIVE: Seen and examined at bedside. condition unchanged. Cleared for DC to STR pendi ng repeat covid OBJECTIVE Last Vital Signs Temp Pulse Resp BP Pulse Ox 98 F 58 L 18 150/49 L 97 12/24/19 08:00 12/24/19 08:00 12/24/19 09:00 12/24/19 08:00 12/24/19 09:00 PE: Per resident note Labs/Imaging: reviewed ASSESSMENT/PLAN 84-year-old male past medical history of COPD on 2 L O2, diastolic CHF, A. fib on Eliquis, GERD, HTN, HLD, Parkinson disease, CAD, CABG x2 brought in for altered mental status and found to have UTI and ANÍBAL. #Toxic metabolic encephalopathy +agitated delirium secondary to UTI and ANÍBAL: resolved -avoid benzos/benedryl etc -stable on zyprexa BID #Prerenal ANÍBAL on CKD stage IV: Resovled Nephrology on board: Appreciate recommendations #Iron deficiency anemia -received 200mg IV iron -cont PO iron -outpt scope -FOBT #COPD on home O2: At baseline Continue home O2 Spiriva Duo nebs PRN #Diastolic CHF Continue home medications #Atrial fibrillation Continue Coreg Continue Eliquis #Hypertension Continue home medications
--- NOTE | 2019-12-24 13:40 | PN ---
Progress Note, Physician History of Present Illness: Pt seen and examined at bedside. He is calmer today. He is out of bed to chair. - Current Medication List Current Medications: Active Medications Albuterol Sulfate (Ventolin Hfa Inhaler -) 2 puff IH Q6H PRN PRN Reason: SHORTNESS OF BREATH Albuterol/Ipratropium (Duoneb -) 1 amp NEB Q4H PRN PRN Reason: SHORTNESS OF BREATH Last Admin: 12/23/19 20:51 Dose: 1 amp Documented by: Amlodipine Besylate (Norvasc -) 10 mg PO DAILY [facility] Last Admin: 12/24/19 09:51 Dose: 10 mg Documented by: Apixaban (Eliquis -) 2.5 mg PO BID [facility] Last Admin: 12/24/19 09:52 Dose: 2.5 mg Documented by: Atorvastatin Calcium (Lipitor -) 10 mg PO HS [facility] Last Admin: 12/23/19 21:48 Dose: 10 mg Documented by: Carbidopa/Levodopa (Sinemet *Cr* 50/200 -) 1 combo PO TID@0700,1200,1700 [facility] Last Admin: 12/24/19 12:29 Dose: 1 combo Documented by: Carvedilol (Coreg -) 25 mg PO BID [facility] Last Admin: 12/24/19 09:51 Dose: 25 mg Documented by: Doxazosin Mesylate (Cardura -) 2 mg PO HS [facility] Last Admin: 12/23/19 21:48 Dose: 2 mg Documented by: Ferrous Sulfate (Feosol -) 325 mg PO BIDWM [facility] Last Admin: 12/24/19 09:52 Dose: 325 mg Documented by: Furosemide (Lasix -) 80 mg PO DAILY [facility] Last Admin: 12/24/19 09:51 Dose: 80 mg Documented by: Hydralazine HCl (Apresoline -) 25 mg PO BID [facility] Last Admin: 12/24/19 09:51 Dose: 25 mg Documented by: Ceftriaxone Sodium 1 gm/ (Dextrose) 50 mls @ 100 mls/hr IVPB DAILY [facility]; Protocol Last Admin: 12/24/19 09:52 Dose: 100 mls/hr Documented by: Insulin Aspart (Novolog Vial Sliding Scale -) 1 vial SQ ACHS [facility]; Protocol Last Admin: 12/24/19 10:53 Dose: 2 units Documented by: Olanzapine (Zyprexa -) 2.5 mg PO BID [facility] Last Admin: 12/24/19 09:52 Dose: 2.5 mg Documented by: Pantoprazole Sodium (Protonix -) 40 mg PO DAILY [facility] Last Admin: 12/24/19 09:52 Dose: 40 mg Documented by: Ranolazine (Ranexa -) 500 mg PO BID [facility] Last Admin: 12/24/19 09:51 Dose: 500 mg Documented by: Tiotropium [place] (Spiriva Respimat) 2 puff IH DAILY [facility] Last Admin: 12/24/19 09:52 Dose: 2 puff Documented by: - Objective Vital Signs: Vital Signs Temperature 98 F 12/24/19 08:00 Pulse Rate 58 L 12/24/19 08:00 Respiratory Rate 18 12/24/19 09:00 Blood Pressure 150/49 L 12/24/19 08:00 O2 Sat by Pulse Oximetry (%) 97 12/24/19 09:00 Constitutional: Yes: Calm Eyes: Yes: Conjunctiva Clear HENT: Yes: Atraumatic Cardiovascular: Yes: S1, S2 Respiratory: Yes: CTA Bilaterally Gastrointestinal: Yes: Soft Genitourinary: Yes: WNL Musculoskeletal: Yes: WNL Edema: No Neurological: Yes: Confusion Psychiatric: Yes: Oriented Labs: CBC, BMP 12/23/19 06:59 12/23/19 06:59 INR, PTT INR 1.49 (0.83-1.09) H 12/17/19 10:10 Assessment/Plan Current Medications Generic Name Dose Route Start Last Admin Trade Name Freq PRN Reason Stop Dose Admin Albuterol Sulfate 2 puff 12/17/19 13:55 Ventolin Hfa Inhaler - IH Q6H PRN SHORTNESS OF BREATH Albuterol/Ipratropium 1 amp 12/20/19 09:09 12/23/19 20:51 Duoneb - NEB 1 amp Q4H PRN Administration SHORTNESS OF BREATH Amlodipine Besylate 10 mg 12/18/19 10:00 12/24/19 09:51 Norvasc - PO 10 mg DAILY [facility] Administration Apixaban 2.5 mg 12/18/19 22:00 12/24/19 09:52 Eliquis - PO 2.5 mg BID [facility] Administration Atorvastatin Calcium 10 mg 12/17/19 22:00 12/23/19 21:48 Lipitor - PO 10 mg HS [facility] Administration Carbidopa/Levodopa 1 combo 12/19/19 07:00 12/24/19 12:29 Sinemet *Cr* 50/200 - PO 1 combo TID@0700,1200,1700 [facility] Administration Carvedilol 25 mg 12/17/19 22:00 12/24/19 09:51 Coreg - PO 25 mg BID [facility] Administration Doxazosin Mesylate 2 mg 12/18/19 22:00 12/23/19 21:48 Cardura - PO 2 mg HS [facility] Administration Ferrous Sulfate 325 mg 12/17/19 17:30 12/24/19 09:52 Feosol - PO 325 mg BIDWM [facility] Administration Furosemide 80 mg 12/20/19 15:30 12/24/19 09:51 Lasix - PO 80 mg DAILY [facility] Administration Hydralazine HCl 25 mg 12/17/19 22:00 12/24/19 09:51 Apresoline - PO 25 mg BID [facility] Administration Ceftriaxone Sodium 1 gm/ 50 mls @ 100 mls/hr 12/18/19 10:00 12/24/19 09:52 Dextrose IVPB 100 mls/hr DAILY [facility] Administration Protocol Insulin Aspart 1 vial 12/17/19 16:30 12/24/19 10:53 Novolog Vial Sliding Scale - SQ 2 units ACHS [facility] Administration Protocol Olanzapine 2.5 mg 12/21/19 22:00 12/24/19 09:52 Zyprexa - PO 2.5 mg BID [facility] Administration Pantoprazole Sodium 40 mg 12/18/19 10:00 12/24/19 09:52 Protonix - PO 40 mg DAILY [facility] Administration Ranolazine 500 mg 12/17/19 22:00 12/24/19 09:51 Ranexa - PO 500 mg BID [facility] Administration Tiotropium [place] 2 puff 12/18/19 10:00 12/24/19 09:52 Spiriva Respimat IH 2 puff DAILY [facility] Administration Impression 1. ckd 2. anemia 3. chf 4. hx hemoptysis 5. ILD 6. cad 7. htn 8. a-fib 9. cva 10. ANÍBAL 11. dementia Plan - cont lasix - renal function is stable - pt is calmer today and more interactive - encourage po intake - avoid nsaids - cont to monitor bp, can titrate hydralazine if needed
--- NOTE | 2019-12-24 18:07 | PN ---
Physical Exam: SUBJECTIVE: Patient seen and examined at bedside. Denies any complaints. OBJECTIVE: Vital Signs Period Temp Pulse Resp BP Sys/Knutson Pulse Ox Last 24 Hr 97.5 F-98 F 55-58 18-18 143-150/49-50 97-100 GENERAL: NAD HEAD: Normal with no signs of trauma. EYES: EOMI Sclera Clear ENT: MMM. NECK: Trachea midline, full range of motion, supple. LUNGS: CTAB. HEART: RRR No MRG S1S2 ABDOMEN: Soft, NDNT EXTREMITIES: No CCE SKIN: Warm, dry, normal turgor, no rashes or lesions noted Laboratory Results - last 24 hr 12/23/19 12/24/19 12/24/19 21:47 10:48 16:27 POC Glucometer 117 225 148 Active Medications Generic Name Dose Route Start Last Admin Trade Name Freq PRN Reason Stop Dose Admin Albuterol Sulfate 2 puff 12/17/19 13:55 Ventolin Hfa Inhaler - IH Q6H PRN SHORTNESS OF BREATH Albuterol/Ipratropium 1 amp 12/20/19 09:09 12/23/19 20:51 Duoneb - NEB 1 amp Q4H PRN Administration SHORTNESS OF BREATH Amlodipine Besylate 10 mg 12/18/19 10:00 12/24/19 09:51 Norvasc - PO 10 mg DAILY [facility] Administration Apixaban 2.5 mg 12/18/19 22:00 12/24/19 09:52 Eliquis - PO 2.5 mg BID [facility] Administration Atorvastatin Calcium 10 mg 12/17/19 22:00 12/23/19 21:48 Lipitor - PO 10 mg HS [facility] Administration Carbidopa/Levodopa 1 combo 12/19/19 07:00 12/24/19 16:58 Sinemet *Cr* 50/200 - PO 1 combo TID@0700,1200,1700 [facility] Administration Carvedilol 25 mg 12/17/19 22:00 12/24/19 09:51 Coreg - PO 25 mg BID [facility] Administration Doxazosin Mesylate 2 mg 12/18/19 22:00 12/23/19 21:48 Cardura - PO 2 mg HS [facility] Administration Ferrous Sulfate 325 mg 12/17/19 17:30 12/24/19 16:58 Feosol - PO 325 mg BIDWM [facility] Administration Furosemide 80 mg 12/20/19 15:30 12/24/19 09:51 Lasix - PO 80 mg DAILY [facility] Administration Hydralazine HCl 25 mg 12/17/19 22:00 12/24/19 09:51 Apresoline - PO 25 mg BID [facility] Administration Ceftriaxone Sodium 1 gm/ 50 mls @ 100 mls/hr 12/18/19 10:00 12/24/19 09:52 Dextrose IVPB 100 mls/hr DAILY [facility] Administration Protocol Insulin Aspart 1 vial 12/17/19 16:30 12/24/19 16:34 Novolog Vial Sliding Scale - SQ Not Given ACHS [facility] Protocol Olanzapine 2.5 mg 12/21/19 22:00 12/24/19 09:52 Zyprexa - PO 2.5 mg BID [facility] Administration Pantoprazole Sodium 40 mg 12/18/19 10:00 12/24/19 09:52 Protonix - PO 40 mg DAILY [facility] Administration Ranolazine 500 mg 12/17/19 22:00 12/24/19 09:51 Ranexa - PO 500 mg BID [facility] Administration Tiotropium [place] 2 puff 12/18/19 10:00 12/24/19 09:52 Spiriva Respimat IH 2 puff DAILY [facility] Administration ASSESSMENT/PLAN: 84-year-old male past medical history of COPD on 2 L O2, diastolic CHF, A. fib on Eliquis, GERD, HTN, HLD, Parkinson disease, CAD, CABG x2 brought in for altered mental status and found to have UTI and ANÍBAL. #Toxic metabolic encephalopathy +agitated delirium secondary to UTI and ANÍBAL: resolved -s/p Ceftriaxone. Urine culture noted. -avoid benzos/benedryl etc -Psych consulted---> Will switch to Zyprexa 2.5 mg po bid for Psychosis. 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 #Prerenal ANÍBAL on CKD Nephrology on board: Appreciate recommendations Cr trending down. #Iron deficiency anemia -received 200mg IV iron -cont PO iron -outpt scope -FOBT #HTN; Cont home meds: Amlodipine 10 mg, Hydralazine 25 BID, Cardura 2 mg HS, Coreg 25 BID #Parkinson Disease: Cont home meds: Carbidopa/levodopa TID #COPD; on home 2L -Spiriva -Duonebs PRN -Supplemental O2 to maintain SpO2 88-92% #Diastolic CHF Continue Lasix #Atrial fibrillation Cont home meds: Eliquis 2.5 BID, Coreg #FEN No fluids Monitor Electrolytes Sodium Controlled #DVT ppx: Eliquis 2.5 mg BID #Dispo: Likely d/c in am Visit type - Emergency Visit Emergency Visit: Yes ED Registration Date: 12/17/19 Care time: The patient presented to the Emergency Department on the above date and was hospitalized for further evaluation of their emergent condition. - New Patient This patient is new to me today: No - Critical Care Critical Care patient: No - Discharge Referral [facility]erred to [facility] Med P.C.: No - Medication Review Med list reviewed for High Risk Meds patients 65 and older: Yes ATTENDING PHYSICIAN STATEMENT I saw and evaluated the patient. I reviewed the resident's note and discussed the case with the resident. I agree with the resident's findings and plan as documented. SUBJECTIVE: OBJECTIVE: ASSESSMENT AND PLAN:
[2019-12-24] MEDS ORDERED: PT OWN MED DRAWER 7, Y5N ONE (21:02)
[2019-12-24] MEDS: ATORVASTATIN CA 10 MG TABLET (FP) PO SCH (21:43)
[2019-12-24] MEDS: DOXAZOSIN MESYLATE 2 MG TABLET PO SCH (21:43)
[2019-12-25] MEDS: INSULIN SLIDING SCALE (NOVOLOG) 1 VIAL SQ SCH ×2 (06:20→11:23)
[2019-12-25 08:00] LABS: HEMATOCRIT 27.4 % (35.4-49); MCH 29.7 pg (25.7-33.7); MCHC 32.8 g/dl (32.0-35.9); MEAN CELL VOLUME 90.5 fl (80-96); MEAN PLT VOLUME 7.6 fl (7.5-11.1); PLATELET COUNT 191 K/MM3 (134-434); RBC 3.03 M/mm3 (4.00-5.60); RDW 14.5 % (11.9-15.9); WHITE BLOOD COUNT 5.3 K/mm3 (4.0-10.0)
[2019-12-25 08:32] LABS: ALBUMIN 3.2 g/dl (3.4-5.0); BILIRUBIN,TOTAL 0.5 mg/dL (0.2-1); BLOOD UREA NITROGEN 36.2 mg/dL (7-18); CALCIUM 8.7 mg/dL (8.5-10.1); CREATININE 1.7 mg/dL (0.55-1.3); MAGNESIUM 2.2 mg/dL (1.8-2.4); PHOSPHOROUS 2.6 mg/dL (2.5-4.9); POTASSIUM 4.1 mmol/L (3.5-5.1); TOT PROT 6.5 g/dl (6.4-8.2)
[2019-12-25] MEDS ORDERED: DEXTROSE 5%-WATER - 50 ML IVPB ONE (09:13)
[2019-12-25] MEDS ORDERED: PT OWN MED DRAWER 7, Y5N ONE (09:13)
[2019-12-25] MEDS ORDERED: cefTRIAXone SODIUM 1 GM VIAL ONE (09:13)
[2019-12-25] MEDS: CEFTRIAXONE 1 GM in DEXTROSE 5%-WATER - 50 ML IVPB SCH (09:16)
[2019-12-25] MEDS: FUROSEMIDE 40 MG TABLET (FP) PO SCH (09:16)
[2019-12-25] MEDS: amLODIPine BESYLATE 10 MG TABLET (FP) PO SCH (09:16)
[2019-12-25] MEDS: FERROUS SO4 325 MG TABLET (FP) PO SCH (09:16)
[2019-12-25] MEDS: CARVEDILOL 25 MG TABLET (FP) PO SCH (09:16)
[2019-12-25] MEDS: APIXABAN 2.5 MG TABLET PO SCH (09:17)
[2019-12-25] MEDS: TIOTROPIUM BROMIDE 2.5 MCG (SPIRIVA) RESPIMAT INHALER IH SCH (09:17)
[2019-12-25] MEDS: RANOLAZINE E.R. 500 MG TABLET (FP) PO SCH (09:17)
[2019-12-25] MEDS: OLANZapine 2.5 MG TABLET PO SCH (09:17)
[2019-12-25] MEDS: PANTOPRAZOLE 40 MG TABLET PO SCH (09:17)
[2019-12-25] MEDS: hydrALAZINE HCL 25 MG TABLET (FP) PO SCH (09:17)
--- NOTE | 2019-12-25 12:42 | DS ---
Physical Exam: SUBJECTIVE: Patient seen and examined OBJECTIVE: Vital Signs Period Temp Pulse Resp BP Sys/Knutson Pulse Ox Last 24 Hr 97.5 F-98.0 F 55-59 18-20 141-152/46-56 98-100 PHYSICAL EXAM GENERAL: The patient is awake, alert, and fully oriented, in no acute distress. HEAD: Normal with no signs of trauma. EYES: PERRL, extraocular movements intact, sclera anicteric, conjunctiva clear. ENT: Ears normal, nares patent, oropharynx clear without exudates, moist mucous membranes. NECK: Trachea midline, full range of motion, supple. LUNGS: Breath sounds equal, clear to auscultation bilaterally, no wheezes, no crackles, no accessory muscle use. HEART: Regular rate and rhythm, S1, S2 without murmur, rub or gallop. ABDOMEN: Soft, nontender, nondistended, normoactive bowel sounds, no guarding, no rebound, no hepatosplenomegaly, no masses. EXTREMITIES: 2+ pulses, warm, well-perfused, no edema. NEUROLOGICAL: Cranial nerves II through XII grossly intact. Normal speech, gait not observed. PSYCH: Normal mood, normal affect. SKIN: Warm, dry, normal turgor, no rashes or lesions noted. LABS Laboratory Results - last 24 hr 12/24/19 12/24/19 12/24/19 11:15 16:27 20:51 WBC RBC Hgb Hct MCV MCH MCHC RDW Plt Count MPV Sodium Potassium Chloride Carbon Dioxide Anion Gap BUN Creatinine Est GFR (CKD-EPI)AfAm Est GFR (CKD-EPI)NonAf POC Glucometer 148 142 Random Glucose Calcium Phosphorus Magnesium Total Bilirubin AST ALT Alkaline Phosphatase Total Protein Albumin COVID-19 ([facility]) Not detected 12/25/19 12/25/19 12/25/19 06:00 06:17 07:33 WBC 5.3 RBC 3.03 L Hgb 9.0 L Hct 27.4 L MCV 90.5 MCH 29.7 MCHC 32.8 RDW 14.5 Plt Count 191 MPV 7.6 D Sodium 139 Potassium 4.1 Chloride 100 Carbon Dioxide 34 H Anion Gap 5 L BUN 36.2 H Creatinine 1.7 H Est GFR (CKD-EPI)AfAm 42.28 Est GFR (CKD-EPI)NonAf 36.48 POC Glucometer 95 Random Glucose 111 H Calcium 8.7 Phosphorus 2.6 Magnesium 2.2 Total Bilirubin 0.5 AST 15 ALT 10 L Alkaline Phosphatase 53 Total Protein 6.5 Albumin 3.2 L COVID-19 ([facility]) HOSPITAL COURSE: Date of Admission:12/17/19 Date of Discharge: 12/25/19 Discharge Summary Problems reviewed: Yes Reason For Visit: ACUTE KIDNEY INJURY UTI AMS UNABLE TO WALK Current Active Problems Acute on chronic kidney failure (Acute) Urinary tract infection (Acute) Condition: Stable - Instructions Diet, Activity, Other Instructions: You were admitted to the hospital for evaluation of change in mental status. You were noted to have a urinary tract infection and evaluated by the neurologist and [facility]m administrator and treated with antibiotics. You are stable for discharge home. We have made changes to your medication regimen Your Sertaline has been discontinued. Instead, you will take Zyprexa 2.5mg twice a day. Discuss this new medication with your primary care physician. Your Furosemide (Lasix) as been changed to 40mg daily Continue taking your other home medications as directed Follow up with your primary care physician within one -two days after discharge. A referral has been provided. Follow up with sccm administrator (Dr. Sanders) within one week. A referral has been provided. 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 A referral to Dr. Ortiz has been provided. Follow up with a interventional cardiologist, regarding your anemia. A referral to Dr. Kaur has been provided. Return to the nearest emergency department if you experience worsening symptoms, subjective fevers, chills, shortness of breath, chest pain, palpitations, abdominal pain, nausea, vomiting, any trauma or loss of consciousness. Referrals: Vince Colbert MD [Non Staff, Medical] - Cy Kaur MD [Staff Physician] - Marlon Sandesr MD [Staff Physician] - Prabhu Ortiz MD, MD [Staff Physician] - Krystal Orlando [Primary Care Provider] - Disposition: HOME - Home Medications Comprehensive Discharge Medication List: Ambulatory Orders Amlodipine Besylate [Norvasc -] 10 mg PO DAILY 11/04/19 Apixaban [Eliquis] 2.5 mg PO BID 11/04/19 Carbidopa/Levodopa *Cr* 50/200 [Sinemet *Cr* 50/200 -] 1 combo PO TID 11/04/19 Carvedilol [Coreg -] 25 mg PO BID 11/04/19 Pantoprazole Sodium [Protonix] 40 mg PO DAILY 11/04/19 Ranolazine [Ranexa] 500 mg PO BID 11/04/19 Doxazosin Mesylate 2 mg PO DAILY 11/05/19 Tiotropium [place] [Spiriva] 1 inh IH DAILY 11/05/19 hydrALAZINE HCL [Apresoline -] 25 mg PO BID 11/05/19 Atorvastatin Ca [Lipitor] 10 mg PO HS 12/17/19 Empagliflozin [Jardiance] 25 mg PO DAILY 12/17/19 Ferrous Sulfate [Iron] 325 mg PO BID 12/17/19 Budesonide/Formeterol Fumarate [SYMBICORT 160/4.5mcg -] 1 puff BID 12/18/19 Glimepiride [Amaryl -] 1 mg PO DAILY 12/18/19 Losartan Potassium 50 mg PO DAILY 12/18/19 Furosemide [Lasix] 40 mg PO DAILY 30 Days #30 tablet 12/25/19 Olanzapine [Zyprexa -] 2.5 mg PO BID 30 Days #60 tablet 12/25/19 - Discharge Referral Referred to [facility] No ATTENDING PHYSICIAN STATEMENT I saw and evaluated the patient. I reviewed the resident's note and discussed the case with the resident. I agree with the resident's findings and plan as documented. SUBJECTIVE: OBJECTIVE: ASSESSMENT AND PLAN:
--- NOTE | 2019-12-25 13:04 | PN ---
Teaching Attending Note Name of Resident: Eduardo Obrien ATTENDING PHYSICIAN STATEMENT I saw and evaluated the patient. I reviewed the resident's note and discussed the case with the resident. I agree with the resident's findings and plan as documented. SUBJECTIVE: Seen and examined at bedside. condition unchanged. Family is decided to take the patient home. He is medically cleared for discharge and will be sent home today. OBJECTIVE Last Vital Signs Temp Pulse Resp BP Pulse Ox 97.8 F 59 L 20 143/46 L 98 12/25/19 10:00 12/25/19 10:00 12/25/19 10:00 12/25/19 10:00 12/25/19 10:00 PE: Per resident note Labs/Imaging: reviewed ASSESSMENT/PLAN 84-year-old male past medical history of COPD on 2 L O2, diastolic CHF, A. fib on Eliquis, GERD, HTN, HLD, Parkinson disease, CAD, CABG x2 brought in for altered mental status and found to have UTI and ANÍBAL. Course was complicated by hyperactive delirium which resolved with treatment of the underlying medical conditions. Patient was switched from Seroquel to Zyprexa by psychiatry. 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 Due to the complicating delirium this medication was not initiated as an inpatient and can be considered by his outpatient physician if he continues to have psychosis. At the time of discharge he is alert and oriented x3, converscent, and of pleasant demeanor. He was also found to have iron deficiency anemia and will need an outpatient colonoscopy. He will be sent home on p.o. iron
--- NOTE | 2019-12-25 13:51 | PN ---
Progress Note, Physician History of Present Illness: Pt seen and examined at bedside. He is very agitated today. - Current Medication List Current Medications: Active Medications Albuterol Sulfate (Ventolin Hfa Inhaler -) 2 puff IH Q6H PRN PRN Reason: SHORTNESS OF BREATH Amlodipine Besylate (Norvasc -) 10 mg PO DAILY [facility] Last Admin: 12/25/19 09:16 Dose: 10 mg Documented by: Apixaban (Eliquis -) 2.5 mg PO BID [facility] Last Admin: 12/25/19 09:17 Dose: 2.5 mg Documented by: Atorvastatin Calcium (Lipitor -) 10 mg PO [facility] Last Admin: 12/24/19 21:43 Dose: 10 mg Documented by: Carbidopa/Levodopa (Sinemet *Cr* 50/200 -) 1 combo PO TID@0700,1200,1700 [facility] Last Admin: 12/25/19 11:58 Dose: 1 combo Documented by: Carvedilol (Coreg -) 25 mg PO BID [facility] Last Admin: 12/25/19 09:16 Dose: 25 mg Documented by: Doxazosin Mesylate (Cardura -) 2 mg PO [facility] Last Admin: 12/24/19 21:43 Dose: 2 mg Documented by: Ferrous Sulfate (Feosol -) 325 mg PO BIDWM [facility] Last Admin: 12/25/19 09:16 Dose: 325 mg Documented by: Furosemide (Lasix -) 80 mg PO DAILY [facility] Last Admin: 12/25/19 09:16 Dose: 80 mg Documented by: Hydralazine HCl (Apresoline -) 25 mg PO BID [facility] Last Admin: 12/25/19 09:17 Dose: 25 mg Documented by: Insulin Aspart (Novolog Vial Sliding Scale -) 1 vial SQ [facility]; Protocol Last Admin: 12/25/19 11:23 Dose: Not Given Documented by: Olanzapine (Zyprexa -) 2.5 mg PO BID [facility] Last Admin: 12/25/19 09:17 Dose: 2.5 mg Documented by: Pantoprazole Sodium (Protonix -) 40 mg PO DAILY [facility] Last Admin: 12/25/19 09:17 Dose: 40 mg Documented by: Ranolazine (Ranexa -) 500 mg PO BID [facility] Last Admin: 12/25/19 09:17 Dose: 500 mg Documented by: Tiotropium [place] (Spiriva Respimat) 2 puff IH DAILY [facility] Last Admin: 12/25/19 09:17 Dose: 2 puff Documented by: - Objective Vital Signs: Vital Signs Temperature 97.8 F 12/25/19 10:00 Pulse Rate 59 L 12/25/19 10:00 Respiratory Rate 12/25/19 10:00 Blood Pressure 143/46 L 12/25/19 10:00 O2 Sat by Pulse Oximetry (%) 98 12/25/19 10:00 Constitutional: Yes: Anxious Eyes: Yes: Conjunctiva Clear HENT: Yes: Atraumatic Neck: Yes: Supple Cardiovascular: Yes: S1, S2 Respiratory: Yes: CTA Bilaterally Gastrointestinal: Yes: Soft Genitourinary: Yes: WNL Musculoskeletal: Yes: WNL Edema: No Neurological: Yes: Confusion Psychiatric: Yes: Agitated Labs: CBC, BMP 12/25/19 07:33 12/25/19 06:00 INR, PTT INR 1.49 (0.83-1.09) H 12/17/19 10:10 Assessment/Plan Current Medications Generic Name Dose Route Start Last Admin Trade Name Freq PRN Reason Stop Dose Admin Albuterol Sulfate 2 puff 12/17/19 13:55 Ventolin Hfa Inhaler - IH Q6H PRN SHORTNESS OF BREATH Amlodipine Besylate 10 mg 12/18/19 10:00 12/25/19 09:16 Norvasc - PO 10 mg DAILY [facility] Administration Apixaban 2.5 mg 12/18/19 22:00 12/25/19 09:17 Eliquis - PO 2.5 mg BID [facility] Administration Atorvastatin Calcium 10 mg 12/17/19 22:00 12/24/19 21:43 Lipitor - PO 10 mg HS [facility] Administration Carbidopa/Levodopa 1 combo 12/19/19 07:00 12/25/19 11:58 Sinemet *Cr* 50/200 - PO 1 combo TID@0700,1200,1700 [facility] Administration Carvedilol 25 mg 12/17/19 22:00 12/25/19 09:16 Coreg - PO 25 mg BID [facility] Administration Doxazosin Mesylate 2 mg 12/18/19 22:00 12/24/19 21:43 Cardura - PO 2 mg HS [facility]JAN Administration Ferrous Sulfate 325 mg 12/17/19 17:30 12/25/19 09:16 Feosol - PO 325 mg BIDWM [facility] Administration Furosemide 80 mg 12/20/19 15:30 12/25/19 09:16 Lasix - PO 80 mg DAILY [facility] Administration Hydralazine HCl 25 mg 12/17/19 22:00 12/25/19 09:17 Apresoline - PO 25 mg BID [facility] Administration Insulin Aspart 1 vial 12/17/19 16:30 12/25/19 11:23 Novolog Vial Sliding Scale - SQ Not Given ACHS [facility] Protocol Olanzapine 2.5 mg 12/21/19 22:00 12/25/19 09:17 Zyprexa - PO 2.5 mg BID [facility] Administration Pantoprazole Sodium 40 mg 12/18/19 10:00 12/25/19 09:17 Protonix - PO 40 mg DAILY [facility] Administration Ranolazine 500 mg 12/17/19 22:00 12/25/19 09:17 Ranexa - PO 500 mg BID [facility] Administration Tiotropium [place] 2 puff 12/18/19 10:00 12/25/19 09:17 Spiriva Respimat IH 2 puff DAILY [facility] Administration Impression 1. ckd 2. anemia 3. chf 4. hx hemoptysis 5. ILD 6. cad 7. htn 8. a-fib 9. cva 10. ANÍBAL 11. dementia Plan - cont current meds - cont with lasix - encourage po intake - mental status worse today - avoid nsaids - cont to monitor bp, can titrate hydralazine if needed
[2019-12-25 14:57] VITALS: BP 145/40; PULSE 54; TEMP 97.7
[2019-12-25 16:03] VITALS: BMI 17.4
== END 2019-12-25 16:54 | disposition home or self-care (01) | DRG 682 ==
LOC: SUPCPDRO 09:14 → JER 09:14 → JERBED 12:37 → J6S 12-18 04:13
PROVIDERS: ATTEND Internal Medicine
DX: N17.9 Acute kidney failure, unspecified (principal); J96.21 Acute and chronic respiratory failure with hypoxia; J96.22 Acute and chronic respiratory failure with hypercapnia; G93.41 Metabolic encephalopathy; N39.0 Urinary tract infection, site not specified; Z68.1 Body mass index [BMI] 19.9 or less, adult; J84.9 Interstitial pulmonary disease, unspecified; F05 Delirium due to known physiological condition; R64 Cachexia; I13.0 Hypertensive heart and chronic kidney disease with heart failure and stage 1 through stage 4 chronic kidney disease, or unspecified chronic kidney disease; I50.32 Chronic diastolic (congestive) heart failure; N18.4 Chronic kidney disease, stage 4 (severe); K21.9 Gastro-esophageal reflux disease without esophagitis; R62.7 Adult failure to thrive; E78.5 Hyperlipidemia, unspecified; F03.90 Unspecified dementia, unspecified severity, without behavioral disturbance, psychotic disturbance, mood disturbance, and anxiety; E11.22 Type 2 diabetes mellitus with diabetic chronic kidney disease; I25.10 Atherosclerotic heart disease of native coronary artery without angina pectoris; I27.20 Pulmonary hypertension, unspecified; G20 Parkinson's disease; E11.51 Type 2 diabetes mellitus with diabetic peripheral angiopathy without gangrene; F06.8 Other specified mental disorders due to known physiological condition; J44.9 Chronic obstructive pulmonary disease, unspecified; D63.1 Anemia in chronic kidney disease; N40.0 Benign prostatic hyperplasia without lower urinary tract symptoms; I25.2 Old myocardial infarction; D50.9 Iron deficiency anemia, unspecified; I48.0 Paroxysmal atrial fibrillation; Z85.46 Personal history of malignant neoplasm of prostate; Z86.73 Personal history of transient ischemic attack (TIA), and cerebral infarction without residual deficits; Z95.1 Presence of aortocoronary bypass graft; Z99.81 Dependence on supplemental oxygen
CPT/HCPCS: 36415; 36600; 70450-TC; 71045-TC-FY; 76775-TC; 80048; 80053; 81003; 82436; 82565; 82728; 82803; 82962; 83540; 83550; 83605; 83735; 84100; 84133; 84300; 84443; 84484; 85025; 85027; 85045; 85610; 85730; 87040; 87086; 87186; 93005; 93010; 94640; 97116-GP; 97162-GP; 97163-GP; 99285-25; J1756; U0003

== ENCOUNTER 2020-04-20 15:03 | Inpatient (IN) | payer OTHER, MEDICARE ==
[2020-04-20] MEDS ORDERED: LACTATED RINGERS SOLUTION 1000 ML INFUS.BAG IV ONE (15:38)
[2020-04-20] MEDS ORDERED: ACETAMINOPHEN 1000 MG/100 ML VIAL (NON FORMULARY) IVPB ONE (15:42)
[2020-04-20] MEDS ORDERED: ACETAMINOPHEN 1000 MG/100 ML VIAL (NON FORMULARY) IVPB PRN (15:43)
[2020-04-20] MEDS ORDERED: ALBUTEROL SO4 HFA INHALER IH ONE ×2 (16:01→16:02)
[2020-04-20] MEDS ORDERED: SODIUM CHLORIDE 0.9% 500 ML INFUS.BAG IV ONE (16:02)
[2020-04-20] MEDS ORDERED: DEXAMETHASONE SOD PHOSPHATE 10 MG/1 ML VIAL IVPUSH ONE (16:03)
[2020-04-20 16:44] LABS: BASO % 0.5 % (0-2.0); EOS % 0.2 % (0-4.5); HEMATOCRIT 27.2 % (35.4-49); HEMOGLOBIN 8.9 GM/dL (11.7-16.9); LYMPH % 12.3 % (8-40); MCH 29.4 pg (25.7-33.7); MCHC 32.8 g/dl (32.0-35.9); MEAN CELL VOLUME 89.5 fl (80-96); MEAN PLT VOLUME 9.1 fl (7.5-11.1); MONO % 13.2 % (3.8-10.2); NEUT % 73.8 % (42.8-82.8); PLATELET COUNT 105 K/MM3 (134-434); RBC 3.04 M/mm3 (4.00-5.60); RDW 15.8 % (11.9-15.9); VENOUS BASE EXCESS 3.7 mmol/L (-2-2); VENOUS O2 SATURATION 97.1 % (70-80); VENOUS PCO2 42.4 mmHg (38-52); VENOUS PH 7.441 (7.310-7.410); WHITE BLOOD COUNT 4.4 K/mm3 (4.0-10.0)
[2020-04-20] MEDS ORDERED: AZITHROMYCIN IVPB 500 MG in DEXTROSE 5%-WATER - 250 ML IVPB ONE (16:46)
[2020-04-20 16:50] LABS: INR 1.89 (0.83-1.09); PROTHROMBIN TIME (PATIENT) 22.4 SEC (9.7-13.0)
[2020-04-20] MEDS ORDERED: DEXAMETHASONE SOD PHOSPHATE 4 MG/1 ML VIAL ONE (16:52)
[2020-04-20 16:53] LABS: ACTIVATED PTT 43.4 SECONDS (25.2-36.5)
[2020-04-20 17:04] LABS: POTASSIUM 4.2 mmol/L (3.5-5.1)
[2020-04-20 17:06] LABS: CALCIUM 8.1 mg/dL (8.5-10.1)
[2020-04-20 17:07] LABS: ALBUMIN 3.4 g/dl (3.4-5.0); BLOOD UREA NITROGEN 83.8 mg/dL (7-18)
[2020-04-20 17:08] LABS: EPI CELLS 4 /uL (0-25.1); HYALINE CASTS 0 /uL (0-3.1); URINE APPEARANCE CLEAR; URINE BACTERIA 21 /uL (0-1359); URINE BILIRUBIN NEGATIVE (NEGATIVE); URINE COLOR YELLOW; URINE GLUCOSE (UA) 1+ (NEGATIVE); URINE KETONE NEGATIVE (NEGATIVE); URINE LEUK ESTERASE NEGATIVE (NEGATIVE); URINE NITRITE NEGATIVE (NEGATIVE); URINE PROTEIN 2+ (NEGATIVE); URINE RBC 4 /uL (0-23.9); URINE UROBILINOGEN 0.2 mg/dL (0.2-1.0); URINE WBC 1 /uL (0-25.8)
[2020-04-20 17:10] LABS: BILIRUBIN,DIRECT 0.2 mg/dL (0.0-0.2); CREATININE 2.4 mg/dL (0.55-1.3)
[2020-04-20 17:12] LABS: BILIRUBIN,TOTAL 0.4 mg/dL (0.2-1); TOT PROT 6.3 g/dl (6.4-8.2)
[2020-04-20 17:15] LABS: N-TERMINAL BNP 9814.6 pg/ml (5-450)
[2020-04-20] MEDS: CEFTRIAXONE 1,000 MG in DEXTROSE 5%-WATER - 50 ML IVPB ONE ×2 (17:56→19:10)
[2020-04-20] MEDS ORDERED: AZITHROMYCIN IVPB 500 MG/250 ML BAG IVPB ONE (17:59)
[2020-04-20] MEDS ORDERED: CEFTRIAXONE 1 GM/50 ML BAG ONE (17:59)
[2020-04-20] MEDS: SODIUM CHLORIDE 1,000 ML IV SCH (19:30)
[2020-04-20] MEDS ORDERED: HEPARIN NA (PORCINE) 5,000 UNITS/ML 1ML VIAL SQ SCH (22:00)
[2020-04-20] MEDS ORDERED: ATORVASTATIN CA 10 MG TABLET (FP) ONE (22:13)
[2020-04-20] MEDS ORDERED: APIXABAN 2.5 MG TABLET ONE (22:13)
[2020-04-20] MEDS: APIXABAN 2.5 MG TABLET PO SCH (22:48)
[2020-04-20] MEDS: ATORVASTATIN CA 10 MG TABLET (FP) PO SCH (22:48)
[2020-04-20] MEDS: BUDESONIDE/FORMETEROL FUMARATE 160/4.5 mcg INHALER IH SCH (22:48)
[2020-04-21] MEDS: SODIUM CHLORIDE 1,000 ML IV SCH ×2 (04:00→21:14)
[2020-04-21 08:14] LABS: BASO % 0.3 % (0-2.0); HEMATOCRIT 25.5 % (35.4-49); HEMOGLOBIN 8.5 GM/dL (11.7-16.9); LYMPH % 7.7 % (8-40); MCH 29.8 pg (25.7-33.7); MCHC 33.2 g/dl (32.0-35.9); MEAN CELL VOLUME 89.7 fl (80-96); MEAN PLT VOLUME 9.7 fl (7.5-11.1); MONO % 4.9 % (3.8-10.2); NEUT % 87.1 % (42.8-82.8); PLATELET COUNT 95 K/MM3 (134-434); RBC 2.84 M/mm3 (4.00-5.60); RDW 15.4 % (11.9-15.9); WHITE BLOOD COUNT 2.9 K/mm3 (4.0-10.0)
[2020-04-21 08:24] LABS: POTASSIUM 4.3 mmol/L (3.5-5.1)
[2020-04-21 08:27] LABS: CALCIUM 8.2 mg/dL (8.5-10.1)
[2020-04-21 08:28] LABS: ALBUMIN 3.1 g/dl (3.4-5.0); BLOOD UREA NITROGEN 79.6 mg/dL (7-18); MAGNESIUM 2.5 mg/dL (1.8-2.4)
[2020-04-21 08:31] LABS: CREATININE 2.2 mg/dL (0.55-1.3)
[2020-04-21 08:32] LABS: BILIRUBIN,TOTAL 0.8 mg/dL (0.2-1)
[2020-04-21 08:33] LABS: TOT PROT 5.8 g/dl (6.4-8.2)
[2020-04-21] MEDS: APIXABAN 2.5 MG TABLET PO SCH ×2 (09:59→21:10)
[2020-04-21] MEDS: FERROUS SO4 325 MG TABLET (FP) PO SCH ×2 (09:59→17:31)
[2020-04-21] MEDS: amLODIPine BESYLATE 10 MG TABLET (FP) PO SCH (09:59)
[2020-04-21] MEDS: CEFTRIAXONE 1 GM in DEXTROSE 5%-WATER - 50 ML IVPB SCH (10:00)
[2020-04-21] MEDS: AZITHROMYCIN IVPB 500 MG/250 ML BAG IVPB SCH (10:32)
[2020-04-21] MEDS: DEXAMETHASONE SOD PHOSPHATE 4 MG/1 ML VIAL IVPUSH SCH (12:03)
[2020-04-21] MEDS: ZINC SULFATE 220 MG CAPSULE (FP) PO SCH (12:03)
[2020-04-21] MEDS: CHOLECALCIFEROL (VIT D3) 1,000 UNIT (25 MCG) TABLET PO SCH (12:04)
[2020-04-21] MEDS: ASCORBIC ACID 500 MG TABLET (FP) PO SCH ×2 (12:04→21:10)
[2020-04-21] MEDS ORDERED: POLYETHYLENE GLYCOL 3350 119 GM BTL PO ONE (12:05)
[2020-04-21] MEDS ORDERED: DOCUSATE SODIUM 100 MG CAPSULE (FP) PO ONE (12:05)
[2020-04-21] MEDS: FAMOTIDINE 20 MG TABLET PO SCH (12:36)
[2020-04-21] MEDS: BUDESONIDE/FORMETEROL FUMARATE 160/4.5 mcg INHALER IH SCH ×2 (12:36→21:10)
[2020-04-21] MEDS: ATORVASTATIN CA 10 MG TABLET (FP) PO SCH (21:10)
[2020-04-22 08:27] LABS: BASO % 0.1 % (0-2.0); HEMATOCRIT 21.4 % (35.4-49); LYMPH % 3.2 % (8-40); MCH 29.5 pg (25.7-33.7); MCHC 32.6 g/dl (32.0-35.9); MEAN CELL VOLUME 90.6 fl (80-96); MEAN PLT VOLUME 9.4 fl (7.5-11.1); MONO % 7.6 % (3.8-10.2); NEUT % 89.1 % (42.8-82.8); PLATELET COUNT 87 K/MM3 (134-434); RBC 2.36 M/mm3 (4.00-5.60); RDW 15.4 % (11.9-15.9); WHITE BLOOD COUNT 4.1 K/mm3 (4.0-10.0)
[2020-04-22 09:23] LABS: POTASSIUM 3.7 mmol/L (3.5-5.1)
[2020-04-22 09:27] LABS: CALCIUM 7.3 mg/dL (8.5-10.1)
[2020-04-22 09:28] LABS: ALBUMIN 2.8 g/dl (3.4-5.0); MAGNESIUM 2.3 mg/dL (1.8-2.4)
[2020-04-22 09:31] LABS: CREATININE 1.4 mg/dL (0.55-1.3); PHOSPHOROUS 3.5 mg/dL (2.5-4.9)
[2020-04-22 09:33] LABS: BILIRUBIN,TOTAL 0.3 mg/dL (0.2-1); TOT PROT 5.1 g/dl (6.4-8.2)
[2020-04-22] MEDS: CEFTRIAXONE 1 GM in DEXTROSE 5%-WATER - 50 ML IVPB SCH (10:14)
[2020-04-22] MEDS: DEXAMETHASONE SOD PHOSPHATE 4 MG/1 ML VIAL IVPUSH SCH (10:16)
[2020-04-22] MEDS: APIXABAN 2.5 MG TABLET PO SCH ×2 (10:16→22:36)
[2020-04-22] MEDS: CHOLECALCIFEROL (VIT D3) 1,000 UNIT (25 MCG) TABLET PO SCH (10:16)
[2020-04-22] MEDS: ASCORBIC ACID 500 MG TABLET (FP) PO SCH ×2 (10:16→22:36)
[2020-04-22] MEDS: ZINC SULFATE 220 MG CAPSULE (FP) PO SCH (10:16)
[2020-04-22] MEDS: amLODIPine BESYLATE 10 MG TABLET (FP) PO SCH (10:16)
[2020-04-22] MEDS: FERROUS SO4 325 MG TABLET (FP) PO SCH ×2 (10:20→18:47)
[2020-04-22] MEDS: BUDESONIDE/FORMETEROL FUMARATE 160/4.5 mcg INHALER IH SCH ×2 (10:27→22:35)
[2020-04-22] MEDS: AZITHROMYCIN IVPB 500 MG/250 ML BAG IVPB SCH (10:49)
[2020-04-22] MEDS: FUROSEMIDE 40 MG TABLET (FP) PO SCH (10:49)
[2020-04-22] MEDS: RANOLAZINE E.R. 500 MG TABLET (FP) PO SCH ×2 (11:57→22:36)
[2020-04-22] MEDS: CARVEDILOL 6.25 MG TABLET (FP) PO SCH ×2 (11:58→22:35)
[2020-04-22 13:56] LABS: BASO % 0.1 % (0-2.0); HEMATOCRIT 24.3 % (35.4-49); HEMOGLOBIN 8.1 GM/dL (11.7-16.9); LYMPH % 2.1 % (8-40); MCH 30.3 pg (25.7-33.7); MCHC 33.2 g/dl (32.0-35.9); MEAN CELL VOLUME 91.4 fl (80-96); MEAN PLT VOLUME 9.9 fl (7.5-11.1); MONO % 4.3 % (3.8-10.2); NEUT % 93.5 % (42.8-82.8); PLATELET COUNT 115 K/MM3 (134-434); RBC 2.66 M/mm3 (4.00-5.60); RDW 15.5 % (11.9-15.9); WHITE BLOOD COUNT 8.1 K/mm3 (4.0-10.0)
[2020-04-22 15:48] LABS: ANISOCYTOSIS 1+; MACROCYTOSIS 1+; OVALOCYTE 1+; PLATELET ESTIMATE DECREASED
[2020-04-22] MEDS ORDERED: guaiFENesin 200 MG/10 ML 10 ML UNIT-DOSE CUPS PO ONE (22:05)
[2020-04-22] MEDS: DOXAZOSIN MESYLATE 2 MG TABLET PO SCH (22:35)
[2020-04-22] MEDS: ATORVASTATIN CA 10 MG TABLET (FP) PO SCH (22:36)
[2020-04-22] MEDS: hydrALAZINE HCL 25 MG TABLET (FP) PO SCH (22:36)
[2020-04-23] MEDS: ALBUTEROL SO4 HFA INHALER IH PRN ×4 (00:47→10:30)
[2020-04-23] MEDS: ACETAMINOPHEN 500 MG TABLET (FP) PO PRN ×2 (02:16→21:03)
[2020-04-23] MEDS ORDERED: cefTRIAXone SODIUM 1 GM VIAL ONE (09:08)
[2020-04-23] MEDS ORDERED: PT OWN MED DRAWER 7, Y5N ONE (09:08)
[2020-04-23] MEDS ORDERED: DEXTROSE 5%-WATER - 50 ML IVPB ONE (09:09)
[2020-04-23] MEDS: CEFTRIAXONE 1 GM in DEXTROSE 5%-WATER - 50 ML IVPB SCH (09:19)
[2020-04-23] MEDS: ASCORBIC ACID 500 MG TABLET (FP) PO SCH ×2 (09:20→21:04)
[2020-04-23] MEDS: AZITHROMYCIN IVPB 500 MG/250 ML BAG IVPB SCH (09:20)
[2020-04-23] MEDS: FUROSEMIDE 40 MG TABLET (FP) PO SCH (09:20)
[2020-04-23] MEDS: hydrALAZINE HCL 25 MG TABLET (FP) PO SCH ×2 (09:20→21:04)
[2020-04-23] MEDS: amLODIPine BESYLATE 10 MG TABLET (FP) PO SCH (09:20)
[2020-04-23] MEDS: FERROUS SO4 325 MG TABLET (FP) PO SCH ×2 (09:21→17:05)
[2020-04-23] MEDS: guaiFENesin 600 MG TABLET.ER (FP) PO SCH ×2 (09:21→21:04)
[2020-04-23] MEDS: CHOLECALCIFEROL (VIT D3) 1,000 UNIT (25 MCG) TABLET PO SCH (09:21)
[2020-04-23] MEDS: RANOLAZINE E.R. 500 MG TABLET (FP) PO SCH ×2 (09:22→21:04)
[2020-04-23] MEDS: APIXABAN 2.5 MG TABLET PO SCH ×2 (09:22→10:00)
[2020-04-23] MEDS: FAMOTIDINE 20 MG TABLET PO SCH (09:22)
[2020-04-23] MEDS: ZINC SULFATE 220 MG CAPSULE (FP) PO SCH (09:22)
[2020-04-23] MEDS: CARVEDILOL 6.25 MG TABLET (FP) PO SCH ×2 (09:22→21:04)
[2020-04-23] MEDS: DEXAMETHASONE SOD PHOSPHATE 4 MG/1 ML VIAL IVPUSH SCH (09:22)
[2020-04-23] MEDS: BUDESONIDE/FORMETEROL FUMARATE 160/4.5 mcg INHALER IH SCH ×2 (09:23→21:05)
[2020-04-23 09:37] LABS: BASO % 0.1 % (0-2.0); HEMATOCRIT 24.5 % (35.4-49); HEMOGLOBIN 8.1 GM/dL (11.7-16.9); LYMPH % 1.5 % (8-40); MCH 29.6 pg (25.7-33.7); MCHC 33.1 g/dl (32.0-35.9); MEAN CELL VOLUME 89.4 fl (80-96); MEAN PLT VOLUME 9.5 fl (7.5-11.1); MONO % 5.3 % (3.8-10.2); NEUT % 93.1 % (42.8-82.8); PLATELET COUNT 118 K/MM3 (134-434); RBC 2.74 M/mm3 (4.00-5.60); RDW 15.9 % (11.9-15.9); WHITE BLOOD COUNT 8.1 K/mm3 (4.0-10.0)
[2020-04-23 09:57] LABS: POTASSIUM 4.5 mmol/L (3.5-5.1)
[2020-04-23 10:11] LABS: ALBUMIN 3.4 g/dl (3.4-5.0); BLOOD UREA NITROGEN 79.6 mg/dL (7-18); CALCIUM 8.8 mg/dL (8.5-10.1); MAGNESIUM 2.5 mg/dL (1.8-2.4)
[2020-04-23 10:14] LABS: CREATININE 1.6 mg/dL (0.55-1.3)
[2020-04-23 10:15] LABS: PHOSPHOROUS 2.9 mg/dL (2.5-4.9)
[2020-04-23 10:16] LABS: TOT PROT 6.3 g/dl (6.4-8.2)
[2020-04-23 10:18] LABS: BILIRUBIN,TOTAL 0.7 mg/dL (0.2-1)
[2020-04-23 11:20] LABS: ANISOCYTOSIS 1+; MACROCYTOSIS 1+; OVALOCYTE 1+; PLATELET ESTIMATE DECREASED
[2020-04-23] MEDS ORDERED: hydrALAZINE HCL 20 MG/ML VIAL IVPB PRN (14:14)
[2020-04-23] MEDS: ALBUTEROL SO4 HFA INHALER IH SCH ×2 (17:04→20:51)
[2020-04-23 17:07] LABS: MYCOPLASMA PNEUMONIAE,IG G AB <100 U/mL (0-99); MYCOPLASMA PNEUMONIAE,IGM AB <770 U/mL (0-769)
[2020-04-23] MEDS: ATORVASTATIN CA 10 MG TABLET (FP) PO SCH (21:04)
[2020-04-23] MEDS: DOXAZOSIN MESYLATE 2 MG TABLET PO SCH (21:05)
[2020-04-24] MEDS: ALBUTEROL SO4 HFA INHALER IH SCH ×4 (09:00→22:07)
[2020-04-24] MEDS ORDERED: cefTRIAXone SODIUM 1 GM VIAL ONE (10:16)
[2020-04-24] MEDS ORDERED: DEXTROSE 5%-WATER - 50 ML IVPB ONE (10:16)
[2020-04-24] MEDS: FERROUS SO4 325 MG TABLET (FP) PO SCH ×2 (10:23→17:30)
[2020-04-24] MEDS: CARVEDILOL 6.25 MG TABLET (FP) PO SCH ×2 (10:24→22:07)
[2020-04-24] MEDS: guaiFENesin 600 MG TABLET.ER (FP) PO SCH ×2 (10:24→22:07)
[2020-04-24] MEDS: ZINC SULFATE 220 MG CAPSULE (FP) PO SCH (10:24)
[2020-04-24] MEDS: ASCORBIC ACID 500 MG TABLET (FP) PO SCH ×2 (10:24→22:08)
[2020-04-24] MEDS: hydrALAZINE HCL 25 MG TABLET (FP) PO SCH ×2 (10:24→22:07)
[2020-04-24] MEDS: amLODIPine BESYLATE 10 MG TABLET (FP) PO SCH (10:24)
[2020-04-24] MEDS: FUROSEMIDE 40 MG TABLET (FP) PO SCH (10:24)
[2020-04-24] MEDS: RANOLAZINE E.R. 500 MG TABLET (FP) PO SCH ×2 (10:24→22:07)
[2020-04-24] MEDS: CHOLECALCIFEROL (VIT D3) 1,000 UNIT (25 MCG) TABLET PO SCH (10:24)
[2020-04-24] MEDS: DEXAMETHASONE SOD PHOSPHATE 4 MG/1 ML VIAL IVPUSH SCH (10:25)
[2020-04-24] MEDS: BUDESONIDE/FORMETEROL FUMARATE 160/4.5 mcg INHALER IH SCH ×2 (10:25→22:08)
[2020-04-24] MEDS: CEFTRIAXONE 1 GM in DEXTROSE 5%-WATER - 50 ML IVPB SCH (10:30)
[2020-04-24 10:41] LABS: HEMATOCRIT 23.2 % (35.4-49); HEMOGLOBIN 7.8 GM/dL (11.7-16.9); LYMPH % 1.4 % (8-40); MCH 29.8 pg (25.7-33.7); MCHC 33.5 g/dl (32.0-35.9); MEAN PLT VOLUME 9.7 fl (7.5-11.1); MONO % 5.4 % (3.8-10.2); NEUT % 93.2 % (42.8-82.8); PLATELET COUNT 107 K/MM3 (134-434); RBC 2.61 M/mm3 (4.00-5.60); RDW 15.8 % (11.9-15.9)
[2020-04-24 10:57] LABS: POTASSIUM 4.2 mmol/L (3.5-5.1)
[2020-04-24 11:00] LABS: CALCIUM 8.6 mg/dL (8.5-10.1)
[2020-04-24 11:01] LABS: ALBUMIN 2.9 g/dl (3.4-5.0); BLOOD UREA NITROGEN 91.6 mg/dL (7-18); MAGNESIUM 2.5 mg/dL (1.8-2.4)
[2020-04-24 11:04] LABS: CREATININE 1.9 mg/dL (0.55-1.3); PHOSPHOROUS 3.7 mg/dL (2.5-4.9)
[2020-04-24 11:05] LABS: BILIRUBIN,TOTAL 0.9 mg/dL (0.2-1); TOT PROT 5.6 g/dl (6.4-8.2)
[2020-04-24] MEDS: AZITHROMYCIN IVPB 500 MG/250 ML BAG IVPB SCH (11:54)
[2020-04-24 12:40] LABS: ANISOCYTOSIS 1+; MACROCYTOSIS 0; PLATELET ESTIMATE DECREASED
[2020-04-24 14:18] LABS: EPI CELLS 2 /uL (0-25.1); HYALINE CASTS 0 /uL (0-3.1); URINE APPEARANCE CLEAR; URINE BACTERIA 55 /uL (0-1359); URINE BILIRUBIN NEGATIVE (NEGATIVE); URINE COLOR YELLOW; URINE GLUCOSE (UA) 3+ (NEGATIVE); URINE KETONE NEGATIVE (NEGATIVE); URINE LEUK ESTERASE NEGATIVE (NEGATIVE); URINE NITRITE NEGATIVE (NEGATIVE); URINE PROTEIN 1+ (NEGATIVE); URINE RBC 10 /uL (0-23.9); URINE UROBILINOGEN 0.2 mg/dL (0.2-1.0); URINE WBC 2 /uL (0-25.8)
[2020-04-24] MEDS: ATORVASTATIN CA 10 MG TABLET (FP) PO SCH (22:07)
[2020-04-24] MEDS: DOXAZOSIN MESYLATE 2 MG TABLET PO SCH (22:08)
[2020-04-24] MEDS: ACETAMINOPHEN 500 MG TABLET (FP) PO PRN (22:09)
[2020-04-25] MEDS ORDERED: cefTRIAXone SODIUM 1 GM VIAL ONE (10:21)
[2020-04-25] MEDS ORDERED: DEXTROSE 5%-WATER - 50 ML IVPB ONE (10:21)
[2020-04-25] MEDS: CEFTRIAXONE 1 GM in DEXTROSE 5%-WATER - 50 ML IVPB SCH (10:30)
[2020-04-25] MEDS: FERROUS SO4 325 MG TABLET (FP) PO SCH ×2 (10:31→16:50)
[2020-04-25] MEDS: ALBUTEROL SO4 HFA INHALER IH SCH ×4 (10:31→20:25)
[2020-04-25] MEDS: ASCORBIC ACID 500 MG TABLET (FP) PO SCH ×2 (10:31→22:42)
[2020-04-25] MEDS: ZINC SULFATE 220 MG CAPSULE (FP) PO SCH (10:31)
[2020-04-25] MEDS: RANOLAZINE E.R. 500 MG TABLET (FP) PO SCH ×2 (10:32→22:43)
[2020-04-25] MEDS: CHOLECALCIFEROL (VIT D3) 1,000 UNIT (25 MCG) TABLET PO SCH (10:32)
[2020-04-25] MEDS: CARVEDILOL 6.25 MG TABLET (FP) PO SCH ×2 (10:32→22:43)
[2020-04-25] MEDS: amLODIPine BESYLATE 10 MG TABLET (FP) PO SCH (10:32)
[2020-04-25] MEDS: hydrALAZINE HCL 25 MG TABLET (FP) PO SCH ×2 (10:32→22:43)
[2020-04-25] MEDS: guaiFENesin 600 MG TABLET.ER (FP) PO SCH ×2 (10:33→22:43)
[2020-04-25] MEDS: FUROSEMIDE 40 MG TABLET (FP) PO SCH (10:33)
[2020-04-25] MEDS: FAMOTIDINE 20 MG TABLET PO SCH (10:33)
[2020-04-25] MEDS: DEXAMETHASONE SOD PHOSPHATE 4 MG/1 ML VIAL IVPUSH SCH (10:34)
[2020-04-25] MEDS: BUDESONIDE/FORMETEROL FUMARATE 160/4.5 mcg INHALER IH SCH ×2 (10:34→23:02)
[2020-04-25 10:39] LABS: LYMPH % 1.5 % (8-40); MCH 29.5 pg (25.7-33.7); MCHC 33.4 g/dl (32.0-35.9); MEAN CELL VOLUME 88.4 fl (80-96); MEAN PLT VOLUME 9.3 fl (7.5-11.1); MONO % 5.5 % (3.8-10.2); PLATELET COUNT 108 K/MM3 (134-434); RBC 2.38 M/mm3 (4.00-5.60); RDW 15.4 % (11.9-15.9)
[2020-04-25 11:18] LABS: ALBUMIN 2.7 g/dl (3.4-5.0); BLOOD UREA NITROGEN 92.2 mg/dL (7-18); CALCIUM 8.8 mg/dL (8.5-10.1); MAGNESIUM 2.6 mg/dL (1.8-2.4)
[2020-04-25 11:21] LABS: CREATININE 1.9 mg/dL (0.55-1.3); PHOSPHOROUS 3.7 mg/dL (2.5-4.9)
[2020-04-25 11:23] LABS: BILIRUBIN,TOTAL 0.4 mg/dL (0.2-1); TOT PROT 5.4 g/dl (6.4-8.2)
[2020-04-25 12:35] LABS: ANISOCYTOSIS 1+; MACROCYTOSIS 0; PLATELET ESTIMATE DECREASED
[2020-04-25] MEDS ORDERED: POLYETHYLENE GLYCOL 3350 119 GM BTL PO SCH (13:00)
[2020-04-25] MEDS ORDERED: PT OWN MED DRAWER 7, Y5N ONE ×2 (15:28→22:30)
[2020-04-25] MEDS: ATORVASTATIN CA 10 MG TABLET (FP) PO SCH (22:43)
[2020-04-25] MEDS: DOXAZOSIN MESYLATE 2 MG TABLET PO SCH (22:44)
[2020-04-25] MEDS: SENNOSIDES 8.8 MG/5 ML BULK BOTTLE PO SCH (22:45)
[2020-04-26] MEDS ORDERED: DEXTROSE 5%-WATER - 50 ML IVPB ONE (09:28)
[2020-04-26] MEDS ORDERED: cefTRIAXone SODIUM 1 GM VIAL ONE (09:28)
[2020-04-26] MEDS: guaiFENesin 600 MG TABLET.ER (FP) PO SCH ×2 (10:25→22:39)
[2020-04-26] MEDS: ASCORBIC ACID 500 MG TABLET (FP) PO SCH ×2 (10:25→22:37)
[2020-04-26] MEDS: FUROSEMIDE 40 MG TABLET (FP) PO SCH (10:25)
[2020-04-26] MEDS: CHOLECALCIFEROL (VIT D3) 1,000 UNIT (25 MCG) TABLET PO SCH (10:25)
[2020-04-26] MEDS: FERROUS SO4 325 MG TABLET (FP) PO SCH ×2 (10:25→18:15)
[2020-04-26] MEDS: RANOLAZINE E.R. 500 MG TABLET (FP) PO SCH ×2 (10:25→22:35)
[2020-04-26] MEDS: amLODIPine BESYLATE 10 MG TABLET (FP) PO SCH (10:25)
[2020-04-26] MEDS: CARVEDILOL 6.25 MG TABLET (FP) PO SCH ×2 (10:25→22:36)
[2020-04-26] MEDS: hydrALAZINE HCL 50 MG TABLET (FP) PO SCH ×2 (10:25→22:38)
[2020-04-26] MEDS: CEFTRIAXONE 1 GM in DEXTROSE 5%-WATER - 50 ML IVPB SCH (10:26)
[2020-04-26] MEDS: ZINC SULFATE 220 MG CAPSULE (FP) PO SCH (10:26)
[2020-04-26] MEDS: BUDESONIDE/FORMETEROL FUMARATE 160/4.5 mcg INHALER IH SCH ×2 (10:26→22:38)
[2020-04-26] MEDS: DEXAMETHASONE SOD PHOSPHATE 4 MG/1 ML VIAL IVPUSH SCH (10:26)
[2020-04-26] MEDS: ALBUTEROL SO4 HFA INHALER IH SCH ×4 (10:26→21:05)
[2020-04-26 13:43] LABS: LYMPH % 1.3 % (8-40); MCH 30.5 pg (25.7-33.7); MCHC 34.9 g/dl (32.0-35.9); MEAN CELL VOLUME 87.3 fl (80-96); MEAN PLT VOLUME 9.5 fl (7.5-11.1); MONO % 4.9 % (3.8-10.2); NEUT % 93.8 % (42.8-82.8); PLATELET COUNT 125 K/MM3 (134-434); RBC 2.63 M/mm3 (4.00-5.60); RDW 15.3 % (11.9-15.9); WHITE BLOOD COUNT 7.6 K/mm3 (4.0-10.0)
[2020-04-26 14:30] LABS: ALBUMIN 2.9 g/dl (3.4-5.0); BLOOD UREA NITROGEN 100.9 mg/dL (7-18)
[2020-04-26 14:32] LABS: CALCIUM 8.4 mg/dL (8.5-10.1); MAGNESIUM 2.2 mg/dL (1.8-2.4)
[2020-04-26 14:33] LABS: CREATININE 1.7 mg/dL (0.55-1.3); PHOSPHOROUS 2.9 mg/dL (2.5-4.9)
[2020-04-26 14:35] LABS: BILIRUBIN,TOTAL 1.3 mg/dL (0.2-1); TOT PROT 5.7 g/dl (6.4-8.2)
[2020-04-26] MEDS: LACTULOSE 20 GM/30 ML UDC (FOR ORAL USE ONLY) PO SCH (14:54)
[2020-04-26 16:08] LABS: PLATELET ESTIMATE ADEQUATE; ROULEAU 1+
[2020-04-26] MEDS ORDERED: PT OWN MED DRAWER 7, Y5N ONE (22:02)
[2020-04-26] MEDS: ATORVASTATIN CA 10 MG TABLET (FP) PO SCH (22:34)
[2020-04-26] MEDS: SENNOSIDES 8.8 MG/5 ML BULK BOTTLE PO SCH (22:38)
[2020-04-26] MEDS: DOXAZOSIN MESYLATE 2 MG TABLET PO SCH (22:39)
[2020-04-27] MEDS: ALBUTEROL SO4 HFA INHALER IH SCH ×4 (08:45→21:19)
[2020-04-27] MEDS: ASCORBIC ACID 500 MG TABLET (FP) PO SCH ×2 (09:02→21:20)
[2020-04-27] MEDS: guaiFENesin 600 MG TABLET.ER (FP) PO SCH ×2 (09:02→21:22)
[2020-04-27] MEDS: FERROUS SO4 325 MG TABLET (FP) PO SCH ×2 (09:02→17:57)
[2020-04-27] MEDS: hydrALAZINE HCL 50 MG TABLET (FP) PO SCH ×2 (09:02→21:22)
[2020-04-27] MEDS: FUROSEMIDE 40 MG TABLET (FP) PO SCH (09:02)
[2020-04-27] MEDS: DEXAMETHASONE SOD PHOSPHATE 4 MG/1 ML VIAL IVPUSH SCH (09:03)
[2020-04-27] MEDS: LACTULOSE 20 GM/30 ML UDC (FOR ORAL USE ONLY) PO SCH (09:03)
[2020-04-27] MEDS: CARVEDILOL 6.25 MG TABLET (FP) PO SCH ×2 (09:03→21:21)
[2020-04-27] MEDS: amLODIPine BESYLATE 10 MG TABLET (FP) PO SCH (09:03)
[2020-04-27] MEDS: ZINC SULFATE 220 MG CAPSULE (FP) PO SCH (09:03)
[2020-04-27] MEDS: CHOLECALCIFEROL (VIT D3) 1,000 UNIT (25 MCG) TABLET PO SCH (09:03)
[2020-04-27] MEDS: RANOLAZINE E.R. 500 MG TABLET (FP) PO SCH ×2 (09:03→21:22)
[2020-04-27] MEDS: FAMOTIDINE 20 MG TABLET PO SCH (09:04)
[2020-04-27] MEDS: BUDESONIDE/FORMETEROL FUMARATE 160/4.5 mcg INHALER IH SCH ×2 (09:04→21:23)
[2020-04-27 11:01] LABS: HEMATOCRIT 19.9 % (35.4-49); LYMPH % 1.2 % (8-40); MCH 29.8 pg (25.7-33.7); MCHC 33.8 g/dl (32.0-35.9); MEAN CELL VOLUME 88.3 fl (80-96); MEAN PLT VOLUME 9.6 fl (7.5-11.1); MONO % 6.3 % (3.8-10.2); NEUT % 92.5 % (42.8-82.8); PLATELET COUNT 107 K/MM3 (134-434); RBC 2.26 M/mm3 (4.00-5.60); WHITE BLOOD COUNT 5.6 K/mm3 (4.0-10.0)
[2020-04-27 11:09] LABS: HEMOGLOBIN 6.7 GM/dL (11.7-16.9)
[2020-04-27 11:22] LABS: MAGNESIUM 2.3 mg/dL (1.8-2.4)
[2020-04-27 11:25] LABS: CREATININE 1.8 mg/dL (0.55-1.3); PHOSPHOROUS 4.2 mg/dL (2.5-4.9)
[2020-04-27 11:26] LABS: BILIRUBIN,TOTAL 0.5 mg/dL (0.2-1)
[2020-04-27 11:31] LABS: ALBUMIN 2.6 g/dl (3.4-5.0); TOT PROT 5.2 g/dl (6.4-8.2)
[2020-04-27 11:37] LABS: BLOOD UREA NITROGEN 105.6 mg/dL (7-18)
[2020-04-27 13:28] LABS: ANISOCYTOSIS 0; MACROCYTOSIS 0; PLATELET ESTIMATE DECREASED
[2020-04-27 16:32] LABS: BASO % 0.2 % (0-2.0); HEMATOCRIT 18.9 % (35.4-49); LYMPH % 1.1 % (8-40); MCH 29.2 pg (25.7-33.7); MCHC 33.1 g/dl (32.0-35.9); MEAN CELL VOLUME 88.4 fl (80-96); MEAN PLT VOLUME 9.5 fl (7.5-11.1); MONO % 4.1 % (3.8-10.2); NEUT % 94.6 % (42.8-82.8); PLATELET COUNT 103 K/MM3 (134-434); RBC 2.13 M/mm3 (4.00-5.60); RDW 15.2 % (11.9-15.9); WHITE BLOOD COUNT 4.5 K/mm3 (4.0-10.0)
[2020-04-27 16:38] LABS: HEMOGLOBIN 6.2 GM/dL (11.7-16.9)
[2020-04-27] MEDS: PANTOPRAZOLE SODIUM 80 MG in SODIUM CHLORIDE 100 ML IVPB SCH (16:41)
[2020-04-27 18:07] LABS: ANISOCYTOSIS 1+; PLATELET ESTIMATE DECREASED; TARGET CELLS 2+
[2020-04-27] MEDS ORDERED: PT OWN MED DRAWER 7, Y5N ONE (21:11)
[2020-04-27] MEDS: DOXAZOSIN MESYLATE 2 MG TABLET PO SCH (21:20)
[2020-04-27] MEDS: ATORVASTATIN CA 10 MG TABLET (FP) PO SCH (21:20)
[2020-04-27] MEDS: SENNOSIDES 8.8 MG/5 ML BULK BOTTLE PO SCH (21:22)
[2020-04-28] MEDS: PANTOPRAZOLE SODIUM 80 MG in SODIUM CHLORIDE 100 ML IVPB SCH ×3 (00:15→22:45)
[2020-04-28] MEDS: ACETAMINOPHEN 500 MG TABLET (FP) PO PRN (00:20)
[2020-04-28 01:11] LABS: BASO % 0.4 % (0-2.0); HEMATOCRIT 22.5 % (35.4-49); HEMOGLOBIN 7.5 GM/dL (11.7-16.9); LYMPH % 1.5 % (8-40); MCH 29.7 pg (25.7-33.7); MCHC 33.6 g/dl (32.0-35.9); MEAN CELL VOLUME 88.3 fl (80-96); MEAN PLT VOLUME 8.9 fl (7.5-11.1); NEUT % 90.1 % (42.8-82.8); PLATELET COUNT 117 K/MM3 (134-434); RBC 2.54 M/mm3 (4.00-5.60); RDW 14.2 % (11.9-15.9); WHITE BLOOD COUNT 4.5 K/mm3 (4.0-10.0)
[2020-04-28 09:29] LABS: BASO % 0.4 % (0-2.0); HEMATOCRIT 24.4 % (35.4-49); HEMOGLOBIN 8.2 GM/dL (11.7-16.9); LYMPH % 1.3 % (8-40); MCH 29.4 pg (25.7-33.7); MCHC 33.5 g/dl (32.0-35.9); MEAN CELL VOLUME 87.9 fl (80-96); MEAN PLT VOLUME 9.5 fl (7.5-11.1); MONO % 7.4 % (3.8-10.2); NEUT % 90.9 % (42.8-82.8); PLATELET COUNT 132 K/MM3 (134-434); RBC 2.78 M/mm3 (4.00-5.60); RDW 14.6 % (11.9-15.9); WHITE BLOOD COUNT 4.9 K/mm3 (4.0-10.0)
[2020-04-28 10:02] LABS: POTASSIUM 4.1 mmol/L (3.5-5.1)
[2020-04-28 10:22] LABS: ALBUMIN 2.7 g/dl (3.4-5.0); CALCIUM 8.6 mg/dL (8.5-10.1)
[2020-04-28 10:23] LABS: MAGNESIUM 2.5 mg/dL (1.8-2.4)
[2020-04-28 10:25] LABS: CREATININE 1.8 mg/dL (0.55-1.3); PHOSPHOROUS 4.4 mg/dL (2.5-4.9)
[2020-04-28 10:27] LABS: TOT PROT 5.6 g/dl (6.4-8.2)
[2020-04-28 10:30] LABS: BILIRUBIN,TOTAL 0.7 mg/dL (0.2-1)
[2020-04-28 10:56] LABS: BLOOD UREA NITROGEN 108.1 mg/dL (7-18)
[2020-04-28] MEDS: CHOLECALCIFEROL (VIT D3) 1,000 UNIT (25 MCG) TABLET PO SCH (11:26)
[2020-04-28] MEDS: ASCORBIC ACID 500 MG TABLET (FP) PO SCH ×2 (11:26→21:30)
[2020-04-28] MEDS: RANOLAZINE E.R. 500 MG TABLET (FP) PO SCH ×2 (11:26→21:30)
[2020-04-28] MEDS: FERROUS SO4 325 MG TABLET (FP) PO SCH ×2 (11:26→17:19)
[2020-04-28] MEDS: guaiFENesin 600 MG TABLET.ER (FP) PO SCH ×2 (11:27→21:30)
[2020-04-28] MEDS: DEXAMETHASONE SOD PHOSPHATE 4 MG/1 ML VIAL IVPUSH SCH (11:27)
[2020-04-28] MEDS: CARVEDILOL 6.25 MG TABLET (FP) PO SCH ×2 (11:27→21:30)
[2020-04-28] MEDS: hydrALAZINE HCL 50 MG TABLET (FP) PO SCH ×2 (11:27→21:30)
[2020-04-28] MEDS: ALBUTEROL SO4 HFA INHALER IH SCH ×4 (11:27→21:34)
[2020-04-28] MEDS: amLODIPine BESYLATE 10 MG TABLET (FP) PO SCH (11:27)
[2020-04-28] MEDS: FUROSEMIDE 40 MG TABLET (FP) PO SCH (11:27)
[2020-04-28] MEDS: ZINC SULFATE 220 MG CAPSULE (FP) PO SCH (11:27)
[2020-04-28] MEDS: LACTULOSE 20 GM/30 ML UDC (FOR ORAL USE ONLY) PO SCH (11:28)
[2020-04-28] MEDS: BUDESONIDE/FORMETEROL FUMARATE 160/4.5 mcg INHALER IH SCH ×2 (11:28→22:57)
[2020-04-28] MEDS ORDERED: PT OWN MED DRAWER 7, Y5N ONE (21:08)
[2020-04-28] MEDS: ATORVASTATIN CA 10 MG TABLET (FP) PO SCH (21:30)
[2020-04-28] MEDS: SENNOSIDES 8.8 MG/5 ML BULK BOTTLE PO SCH (21:31)
[2020-04-28] MEDS: DOXAZOSIN MESYLATE 2 MG TABLET PO SCH (21:31)
[2020-04-29] MEDS: BUDESONIDE/FORMETEROL FUMARATE 160/4.5 mcg INHALER IH SCH ×2 (00:33→10:29)
[2020-04-29] MEDS: PANTOPRAZOLE SODIUM 80 MG in SODIUM CHLORIDE 100 ML IVPB SCH ×4 (01:19→17:41)
[2020-04-29] MEDS ORDERED: VANCOMYCIN/WATER BAGS 1,250 MG/250 ML BAG IVPB SCH (08:15)
[2020-04-29] MEDS: FERROUS SO4 325 MG TABLET (FP) PO SCH ×2 (08:36→17:42)
[2020-04-29] MEDS: ALBUTEROL SO4 HFA INHALER IH SCH ×4 (08:56→22:33)
[2020-04-29 09:28] LABS: BASO % 0.4 % (0-2.0); HEMOGLOBIN 7.5 GM/dL (11.7-16.9); LYMPH % 1.3 % (8-40); MCH 30.5 pg (25.7-33.7); MCHC 34.3 g/dl (32.0-35.9); MEAN CELL VOLUME 88.8 fl (80-96); MEAN PLT VOLUME 9.5 fl (7.5-11.1); MONO % 7.8 % (3.8-10.2); NEUT % 90.5 % (42.8-82.8); PLATELET COUNT 124 K/MM3 (134-434); RBC 2.48 M/mm3 (4.00-5.60); RDW 14.8 % (11.9-15.9); WHITE BLOOD COUNT 5.8 K/mm3 (4.0-10.0)
[2020-04-29] MEDS: FUROSEMIDE 40 MG TABLET (FP) PO SCH (09:54)
[2020-04-29] MEDS: amLODIPine BESYLATE 10 MG TABLET (FP) PO SCH (09:54)
[2020-04-29] MEDS: hydrALAZINE HCL 50 MG TABLET (FP) PO SCH ×2 (09:55→21:18)
[2020-04-29] MEDS: RANOLAZINE E.R. 500 MG TABLET (FP) PO SCH ×2 (09:55→21:17)
[2020-04-29] MEDS: CHOLECALCIFEROL (VIT D3) 1,000 UNIT (25 MCG) TABLET PO SCH (09:55)
[2020-04-29] MEDS: ZINC SULFATE 220 MG CAPSULE (FP) PO SCH (09:56)
[2020-04-29] MEDS: ASCORBIC ACID 500 MG TABLET (FP) PO SCH ×2 (09:56→21:17)
[2020-04-29] MEDS: LACTULOSE 20 GM/30 ML UDC (FOR ORAL USE ONLY) PO SCH (09:56)
[2020-04-29] MEDS: guaiFENesin 600 MG TABLET.ER (FP) PO SCH ×2 (09:56→21:18)
[2020-04-29] MEDS: CARVEDILOL 6.25 MG TABLET (FP) PO SCH ×2 (09:56→21:17)
[2020-04-29] MEDS: VANCOMYCIN HCL 1,250 MG in DEXTROSE 5%-WATER - 250 ML IVPB SCH (09:57)
[2020-04-29 10:11] LABS: POTASSIUM 3.8 mmol/L (3.5-5.1)
[2020-04-29 10:13] LABS: ALBUMIN 2.5 g/dl (3.4-5.0); CALCIUM 8.5 mg/dL (8.5-10.1); MAGNESIUM 2.4 mg/dL (1.8-2.4)
[2020-04-29 10:17] LABS: CREATININE 1.8 mg/dL (0.55-1.3); PHOSPHOROUS 3.8 mg/dL (2.5-4.9)
[2020-04-29 10:18] LABS: BILIRUBIN,TOTAL 0.6 mg/dL (0.2-1); TOT PROT 5.1 g/dl (6.4-8.2)
[2020-04-29 10:30] LABS: BLOOD UREA NITROGEN 109.3 mg/dL (7-18)
[2020-04-29] MEDS: ACETAMINOPHEN 500 MG TABLET (FP) PO PRN (20:09)
[2020-04-29] MEDS: ATORVASTATIN CA 10 MG TABLET (FP) PO SCH (21:17)
[2020-04-29] MEDS ORDERED: PT OWN MED DRAWER 7, Y5N ONE (21:19)
[2020-04-29] MEDS: SENNOSIDES 8.8 MG/5 ML BULK BOTTLE PO SCH (21:20)
[2020-04-29] MEDS: DOXAZOSIN MESYLATE 2 MG TABLET PO SCH (21:20)
[2020-04-30] MEDS: PANTOPRAZOLE SODIUM 80 MG in SODIUM CHLORIDE 100 ML IVPB SCH ×3 (00:42→13:36)
[2020-04-30] MEDS: FERROUS SO4 325 MG TABLET (FP) PO SCH ×2 (08:35→17:28)
[2020-04-30] MEDS: ALBUTEROL SO4 HFA INHALER IH SCH ×4 (08:39→22:25)
[2020-04-30 09:20] LABS: BASO % 0.1 % (0-2.0); EOS % 0.3 % (0-4.5); HEMATOCRIT 20.1 % (35.4-49); LYMPH % 1.6 % (8-40); MCHC 33.8 g/dl (32.0-35.9); MEAN CELL VOLUME 88.7 fl (80-96); MEAN PLT VOLUME 8.8 fl (7.5-11.1); MONO % 6.7 % (3.8-10.2); NEUT % 91.3 % (42.8-82.8); PLATELET COUNT 128 K/MM3 (134-434); RBC 2.26 M/mm3 (4.00-5.60); RDW 14.5 % (11.9-15.9); WHITE BLOOD COUNT 6.7 K/mm3 (4.0-10.0)
[2020-04-30 09:24] LABS: HEMOGLOBIN 6.8 GM/dL (11.7-16.9)
[2020-04-30] MEDS: ASCORBIC ACID 500 MG TABLET (FP) PO SCH ×2 (09:49→22:27)
[2020-04-30] MEDS: CHOLECALCIFEROL (VIT D3) 1,000 UNIT (25 MCG) TABLET PO SCH (09:49)
[2020-04-30] MEDS: hydrALAZINE HCL 50 MG TABLET (FP) PO SCH ×3 (09:49→22:28)
[2020-04-30] MEDS: guaiFENesin 600 MG TABLET.ER (FP) PO SCH ×2 (09:49→22:29)
[2020-04-30] MEDS: FUROSEMIDE 40 MG TABLET (FP) PO SCH (09:49)
[2020-04-30] MEDS: RANOLAZINE E.R. 500 MG TABLET (FP) PO SCH ×2 (09:49→22:28)
[2020-04-30] MEDS: ZINC SULFATE 220 MG CAPSULE (FP) PO SCH (09:49)
[2020-04-30] MEDS: CARVEDILOL 6.25 MG TABLET (FP) PO SCH ×2 (09:50→22:30)
[2020-04-30] MEDS: LACTULOSE 20 GM/30 ML UDC (FOR ORAL USE ONLY) PO SCH (09:50)
[2020-04-30] MEDS: amLODIPine BESYLATE 10 MG TABLET (FP) PO SCH (09:50)
[2020-04-30 09:52] LABS: POTASSIUM 3.6 mmol/L (3.5-5.1)
[2020-04-30] MEDS: BUDESONIDE/FORMETEROL FUMARATE 160/4.5 mcg INHALER IH SCH ×2 (09:52→22:30)
[2020-04-30 10:14] LABS: ALBUMIN 2.5 g/dl (3.4-5.0)
[2020-04-30 10:15] LABS: BLOOD UREA NITROGEN 98.8 mg/dL (7-18)
[2020-04-30 10:16] LABS: ANISOCYTOSIS 0; CALCIUM 8.1 mg/dL (8.5-10.1); MACROCYTOSIS 0; PLATELET ESTIMATE DECREASED
[2020-04-30 10:17] LABS: MAGNESIUM 2.6 mg/dL (1.8-2.4); PHOSPHOROUS 3.1 mg/dL (2.5-4.9)
[2020-04-30 10:18] LABS: CREATININE 1.9 mg/dL (0.55-1.3)
[2020-04-30 10:19] LABS: BILIRUBIN,TOTAL 0.7 mg/dL (0.2-1); TOT PROT 5.1 g/dl (6.4-8.2)
[2020-04-30] MEDS: VANCOMYCIN HCL 1,250 MG in DEXTROSE 5%-WATER - 250 ML IVPB SCH (10:33)
[2020-04-30] MEDS ORDERED: hydrALAZINE HCL 50 MG TABLET (FP) PO SCH (14:00)
[2020-04-30 20:01] LABS: BASO % 0.1 % (0-2.0); HEMATOCRIT 23.3 % (35.4-49); HEMOGLOBIN 7.9 GM/dL (11.7-16.9); LYMPH % 2.5 % (8-40); MCH 30.3 pg (25.7-33.7); MCHC 33.9 g/dl (32.0-35.9); MEAN CELL VOLUME 89.5 fl (80-96); MONO % 6.1 % (3.8-10.2); NEUT % 90.3 % (42.8-82.8); PLATELET COUNT 122 K/MM3 (134-434); RBC 2.61 M/mm3 (4.00-5.60); RDW 14.2 % (11.9-15.9); WHITE BLOOD COUNT 7.4 K/mm3 (4.0-10.0)
[2020-04-30] MEDS ORDERED: ALBUTEROL SO4 0.083% IH SOL 2.5 MG/3 ML VIAL.NEB. NEB ONE (20:16)
[2020-04-30 21:40] LABS: ANISOCYTOSIS 1+; MACROCYTOSIS 0; OVALOCYTE 1+; PLATELET ESTIMATE DECREASED
[2020-04-30] MEDS ORDERED: PANTOPRAZOLE SODIUM 40 MG in SODIUM CHLORIDE 100 ML IVPB SCH (22:00)
[2020-04-30] MEDS ORDERED: PT OWN MED DRAWER 7, Y5N ONE (22:18)
[2020-04-30] MEDS: SENNOSIDES 8.8 MG/5 ML BULK BOTTLE PO SCH (22:26)
[2020-04-30] MEDS: PANTOPRAZOLE SODIUM 40 MG VIAL IVPUSH SCH (22:27)
[2020-04-30] MEDS: ATORVASTATIN CA 10 MG TABLET (FP) PO SCH (22:29)
[2020-04-30] MEDS: DOXAZOSIN MESYLATE 2 MG TABLET PO SCH (22:30)
[2020-05-01] MEDS: hydrALAZINE HCL 50 MG TABLET (FP) PO SCH ×3 (06:25→21:10)
[2020-05-01] MEDS: ALBUTEROL SO4 HFA INHALER IH SCH ×4 (09:00→20:15)
[2020-05-01 09:39] LABS: BASO % 0.4 % (0-2.0); EOS % 1.8 % (0-4.5); HEMATOCRIT 24.1 % (35.4-49); HEMOGLOBIN 8.2 GM/dL (11.7-16.9); LYMPH % 2.5 % (8-40); MCH 30.2 pg (25.7-33.7); MCHC 34.1 g/dl (32.0-35.9); MEAN CELL VOLUME 88.5 fl (80-96); MEAN PLT VOLUME 9.1 fl (7.5-11.1); MONO % 6.6 % (3.8-10.2); NEUT % 88.7 % (42.8-82.8); PLATELET COUNT 116 K/MM3 (134-434); RBC 2.72 M/mm3 (4.00-5.60); RDW 14.5 % (11.9-15.9); WHITE BLOOD COUNT 6.2 K/mm3 (4.0-10.0)
[2020-05-01 09:46] LABS: POTASSIUM 3.4 mmol/L (3.5-5.1)
[2020-05-01 09:57] LABS: ALBUMIN 2.4 g/dl (3.4-5.0); BLOOD UREA NITROGEN 89.6 mg/dL (7-18); MAGNESIUM 2.4 mg/dL (1.8-2.4)
[2020-05-01] MEDS ORDERED: PT OWN MED DRAWER 7, Y5N ONE ×2 (09:57→21:06)
[2020-05-01 10:00] LABS: CREATININE 1.7 mg/dL (0.55-1.3)
[2020-05-01 10:01] LABS: BILIRUBIN,TOTAL 0.8 mg/dL (0.2-1)
[2020-05-01] MEDS: LACTULOSE 20 GM/30 ML UDC (FOR ORAL USE ONLY) PO SCH (10:01)
[2020-05-01] MEDS: VANCOMYCIN HCL 1,250 MG in DEXTROSE 5%-WATER - 250 ML IVPB SCH (10:01)
[2020-05-01] MEDS: RANOLAZINE E.R. 500 MG TABLET (FP) PO SCH ×2 (10:02→21:13)
[2020-05-01] MEDS: ZINC SULFATE 220 MG CAPSULE (FP) PO SCH (10:03)
[2020-05-01] MEDS: amLODIPine BESYLATE 10 MG TABLET (FP) PO SCH (10:03)
[2020-05-01] MEDS: CHOLECALCIFEROL (VIT D3) 1,000 UNIT (25 MCG) TABLET PO SCH (10:03)
[2020-05-01] MEDS: CARVEDILOL 6.25 MG TABLET (FP) PO SCH ×2 (10:03→21:14)
[2020-05-01] MEDS: FUROSEMIDE 40 MG TABLET (FP) PO SCH (10:03)
[2020-05-01] MEDS: PANTOPRAZOLE SODIUM 40 MG VIAL IVPUSH SCH ×2 (10:03→21:10)
[2020-05-01] MEDS: ASCORBIC ACID 500 MG TABLET (FP) PO SCH ×2 (10:03→21:13)
[2020-05-01] MEDS: guaiFENesin 600 MG TABLET.ER (FP) PO SCH ×2 (10:04→21:13)
[2020-05-01] MEDS: FERROUS SO4 325 MG TABLET (FP) PO SCH ×2 (10:04→18:01)
[2020-05-01] MEDS: BUDESONIDE/FORMETEROL FUMARATE 160/4.5 mcg INHALER IH SCH ×2 (11:14→21:14)
[2020-05-01 16:07] VITALS: BMI 18.3
[2020-05-01] MEDS ORDERED: POTASSIUM CHLORIDE TABS 20 MEQ TABLET.ER (FP) PO ONE (17:30)
[2020-05-01] MEDS: ATORVASTATIN CA 10 MG TABLET (FP) PO SCH (21:14)
[2020-05-01] MEDS: DOXAZOSIN MESYLATE 2 MG TABLET PO SCH (22:42)
[2020-05-01] MEDS: SENNOSIDES 8.6MG TABLET (FP) PO SCH (22:42)
[2020-05-02] MEDS: hydrALAZINE HCL 50 MG TABLET (FP) PO SCH ×3 (05:43→22:22)
[2020-05-02] MEDS ORDERED: PT OWN MED DRAWER 7, Y5N ONE ×2 (08:56→22:01)
[2020-05-02] MEDS: CARVEDILOL 6.25 MG TABLET (FP) PO SCH ×2 (09:37→22:22)
[2020-05-02] MEDS: LACTULOSE 20 GM/30 ML UDC (FOR ORAL USE ONLY) PO SCH (09:37)
[2020-05-02] MEDS: FERROUS SO4 325 MG TABLET (FP) PO SCH ×2 (09:37→17:27)
[2020-05-02] MEDS: ASCORBIC ACID 500 MG TABLET (FP) PO SCH ×2 (09:37→22:22)
[2020-05-02] MEDS: FUROSEMIDE 40 MG TABLET (FP) PO SCH (09:37)
[2020-05-02] MEDS: guaiFENesin 600 MG TABLET.ER (FP) PO SCH ×2 (09:37→22:22)
[2020-05-02] MEDS: amLODIPine BESYLATE 10 MG TABLET (FP) PO SCH (09:37)
[2020-05-02] MEDS: PANTOPRAZOLE SODIUM 40 MG VIAL IVPUSH SCH ×2 (09:37→22:20)
[2020-05-02] MEDS: CHOLECALCIFEROL (VIT D3) 1,000 UNIT (25 MCG) TABLET PO SCH (09:37)
[2020-05-02] MEDS: VANCOMYCIN HCL 1,250 MG in DEXTROSE 5%-WATER - 250 ML IVPB SCH (09:37)
[2020-05-02] MEDS: ZINC SULFATE 220 MG CAPSULE (FP) PO SCH (09:37)
[2020-05-02] MEDS: ALBUTEROL SO4 HFA INHALER IH SCH ×4 (09:38→22:19)
[2020-05-02] MEDS: BUDESONIDE/FORMETEROL FUMARATE 160/4.5 mcg INHALER IH SCH ×2 (09:38→22:23)
[2020-05-02] MEDS: RANOLAZINE E.R. 500 MG TABLET (FP) PO SCH ×2 (09:38→22:21)
[2020-05-02 10:14] LABS: BASO % 0.2 % (0-2.0); EOS % 2.4 % (0-4.5); HEMATOCRIT 24.5 % (35.4-49); HEMOGLOBIN 8.5 GM/dL (11.7-16.9); LYMPH % 2.9 % (8-40); MCH 30.9 pg (25.7-33.7); MCHC 34.9 g/dl (32.0-35.9); MEAN CELL VOLUME 88.5 fl (80-96); MEAN PLT VOLUME 8.8 fl (7.5-11.1); MONO % 7.1 % (3.8-10.2); NEUT % 87.4 % (42.8-82.8); PLATELET COUNT 155 K/MM3 (134-434); RBC 2.76 M/mm3 (4.00-5.60); RDW 14.4 % (11.9-15.9)
[2020-05-02 10:29] LABS: POTASSIUM 3.7 mmol/L (3.5-5.1)
[2020-05-02 10:37] LABS: BLOOD UREA NITROGEN 80.2 mg/dL (7-18); CALCIUM 7.8 mg/dL (8.5-10.1)
[2020-05-02 10:38] LABS: ALBUMIN 2.4 g/dl (3.4-5.0); MAGNESIUM 2.4 mg/dL (1.8-2.4)
[2020-05-02 10:39] LABS: CREATININE 1.7 mg/dL (0.55-1.3)
[2020-05-02 10:40] LABS: PHOSPHOROUS 2.8 mg/dL (2.5-4.9)
[2020-05-02 10:44] LABS: BILIRUBIN,TOTAL 0.6 mg/dL (0.2-1)
[2020-05-02] MEDS: SENNOSIDES 8.6MG TABLET (FP) PO SCH (22:21)
[2020-05-02] MEDS: ATORVASTATIN CA 10 MG TABLET (FP) PO SCH (22:22)
[2020-05-02] MEDS: DOXAZOSIN MESYLATE 2 MG TABLET PO SCH (22:23)
[2020-05-03] MEDS: ALBUTEROL SO4 HFA INHALER IH PRN (03:15)
[2020-05-03] MEDS: hydrALAZINE HCL 50 MG TABLET (FP) PO SCH ×3 (06:29→21:15)
[2020-05-03] MEDS ORDERED: PT OWN MED DRAWER 7, Y5N ONE ×4 (07:03→21:24)
[2020-05-03 08:33] LABS: BASO % 0.4 % (0-2.0); EOS % 1.6 % (0-4.5); HEMATOCRIT 23.4 % (35.4-49); HEMOGLOBIN 8.1 GM/dL (11.7-16.9); LYMPH % 3.2 % (8-40); MCH 30.5 pg (25.7-33.7); MCHC 34.9 g/dl (32.0-35.9); MEAN CELL VOLUME 87.6 fl (80-96); MEAN PLT VOLUME 8.2 fl (7.5-11.1); MONO % 6.4 % (3.8-10.2); NEUT % 88.4 % (42.8-82.8); PLATELET COUNT 165 K/MM3 (134-434); RBC 2.67 M/mm3 (4.00-5.60); RDW 14.6 % (11.9-15.9); WHITE BLOOD COUNT 7.4 K/mm3 (4.0-10.0)
[2020-05-03 09:12] LABS: BLOOD UREA NITROGEN 72.9 mg/dL (7-18); MAGNESIUM 2.5 mg/dL (1.8-2.4)
[2020-05-03 09:13] LABS: CREATININE 1.6 mg/dL (0.55-1.3); PHOSPHOROUS 2.4 mg/dL (2.5-4.9)
[2020-05-03 09:15] LABS: BILIRUBIN,TOTAL 0.7 mg/dL (0.2-1); CALCIUM 7.5 mg/dL (8.5-10.1); TOT PROT 4.9 g/dl (6.4-8.2)
[2020-05-03 09:16] LABS: ALBUMIN 2.3 g/dl (3.4-5.0)
[2020-05-03] MEDS: ZINC SULFATE 220 MG CAPSULE (FP) PO SCH (09:20)
[2020-05-03] MEDS: amLODIPine BESYLATE 10 MG TABLET (FP) PO SCH (09:20)
[2020-05-03] MEDS: CARVEDILOL 6.25 MG TABLET (FP) PO SCH ×2 (09:20→21:11)
[2020-05-03] MEDS: RANOLAZINE E.R. 500 MG TABLET (FP) PO SCH ×2 (09:20→21:13)
[2020-05-03] MEDS: LACTULOSE 20 GM/30 ML UDC (FOR ORAL USE ONLY) PO SCH (09:20)
[2020-05-03] MEDS: FERROUS SO4 325 MG TABLET (FP) PO SCH ×2 (09:20→18:06)
[2020-05-03] MEDS: FUROSEMIDE 40 MG TABLET (FP) PO SCH (09:20)
[2020-05-03] MEDS: CHOLECALCIFEROL (VIT D3) 1,000 UNIT (25 MCG) TABLET PO SCH (09:20)
[2020-05-03] MEDS: ASCORBIC ACID 500 MG TABLET (FP) PO SCH ×2 (09:20→21:14)
[2020-05-03] MEDS: guaiFENesin 600 MG TABLET.ER (FP) PO SCH ×2 (09:20→21:13)
[2020-05-03] MEDS: PANTOPRAZOLE SODIUM 40 MG VIAL IVPUSH SCH ×2 (09:20→23:06)
[2020-05-03] MEDS: VANCOMYCIN HCL 1,250 MG in DEXTROSE 5%-WATER - 250 ML IVPB SCH ×2 (09:20→09:42)
[2020-05-03] MEDS: BUDESONIDE/FORMETEROL FUMARATE 160/4.5 mcg INHALER IH SCH ×2 (09:21→23:09)
[2020-05-03] MEDS: ALBUTEROL SO4 HFA INHALER IH SCH ×4 (09:21→21:01)
[2020-05-03] MEDS: DOXAZOSIN MESYLATE 2 MG TABLET PO SCH (21:11)
[2020-05-03] MEDS: ATORVASTATIN CA 10 MG TABLET (FP) PO SCH (21:12)
[2020-05-03] MEDS: SENNOSIDES 8.6MG TABLET (FP) PO SCH (21:13)
[2020-05-04] MEDS: hydrALAZINE HCL 50 MG TABLET (FP) PO SCH ×3 (05:36→21:13)
[2020-05-04 09:21] LABS: BASO % 0.4 % (0-2.0); EOS % 1.1 % (0-4.5); HEMATOCRIT 24.8 % (35.4-49); HEMOGLOBIN 8.5 GM/dL (11.7-16.9); LYMPH % 3.2 % (8-40); MCH 30.3 pg (25.7-33.7); MCHC 34.2 g/dl (32.0-35.9); MEAN CELL VOLUME 88.7 fl (80-96); MEAN PLT VOLUME 8.4 fl (7.5-11.1); MONO % 6.8 % (3.8-10.2); NEUT % 88.5 % (42.8-82.8); PLATELET COUNT 182 K/MM3 (134-434); RDW 14.3 % (11.9-15.9); WHITE BLOOD COUNT 7.2 K/mm3 (4.0-10.0)
[2020-05-04 09:44] LABS: CREATININE 1.7 mg/dL (0.55-1.3)
[2020-05-04 09:45] LABS: BILIRUBIN,TOTAL 0.8 mg/dL (0.2-1)
[2020-05-04 09:55] LABS: ALBUMIN 2.4 g/dl (3.4-5.0); BLOOD UREA NITROGEN 67.6 mg/dL (7-18)
[2020-05-04 09:56] LABS: CALCIUM 7.6 mg/dL (8.5-10.1); MAGNESIUM 2.6 mg/dL (1.8-2.4)
[2020-05-04 10:02] LABS: PHOSPHOROUS 2.8 mg/dL (2.5-4.9)
[2020-05-04] MEDS: ALBUTEROL SO4 HFA INHALER IH SCH ×4 (11:51→21:12)
[2020-05-04] MEDS: FERROUS SO4 325 MG TABLET (FP) PO SCH ×2 (11:55→18:58)
[2020-05-04] MEDS: RANOLAZINE E.R. 500 MG TABLET (FP) PO SCH ×2 (11:56→21:15)
[2020-05-04] MEDS: CHOLECALCIFEROL (VIT D3) 1,000 UNIT (25 MCG) TABLET PO SCH (11:56)
[2020-05-04] MEDS: amLODIPine BESYLATE 10 MG TABLET (FP) PO SCH (11:56)
[2020-05-04] MEDS: FUROSEMIDE 40 MG TABLET (FP) PO SCH (11:56)
[2020-05-04] MEDS: ZINC SULFATE 220 MG CAPSULE (FP) PO SCH (11:56)
[2020-05-04] MEDS: guaiFENesin 600 MG TABLET.ER (FP) PO SCH ×2 (11:56→21:15)
[2020-05-04] MEDS: LACTULOSE 20 GM/30 ML UDC (FOR ORAL USE ONLY) PO SCH (11:56)
[2020-05-04] MEDS: CARVEDILOL 6.25 MG TABLET (FP) PO SCH ×2 (11:56→21:14)
[2020-05-04] MEDS: ASCORBIC ACID 500 MG TABLET (FP) PO SCH ×2 (11:57→21:14)
[2020-05-04] MEDS: PANTOPRAZOLE SODIUM 40 MG VIAL IVPUSH SCH ×2 (12:09→21:16)
[2020-05-04] MEDS: BUDESONIDE/FORMETEROL FUMARATE 160/4.5 mcg INHALER IH SCH ×2 (12:09→21:18)
[2020-05-04] MEDS: VANCOMYCIN HCL 1,250 MG in DEXTROSE 5%-WATER - 250 ML IVPB SCH (12:52)
[2020-05-04] MEDS ORDERED: TRIMETHOBENZAMIDE HCL 200MG/2ML INJ IM ONE (15:01)
[2020-05-04] MEDS ORDERED: PT OWN MED DRAWER 7, Y5N ONE ×2 (16:34→21:01)
[2020-05-04] MEDS: ATORVASTATIN CA 10 MG TABLET (FP) PO SCH (21:15)
[2020-05-04] MEDS: DOXAZOSIN MESYLATE 2 MG TABLET PO SCH (21:15)
[2020-05-04] MEDS: ACETAMINOPHEN 500 MG TABLET (FP) PO PRN (21:17)
[2020-05-04] MEDS: SENNOSIDES 8.6MG TABLET (FP) PO SCH (21:17)
[2020-05-05] MEDS: hydrALAZINE HCL 50 MG TABLET (FP) PO SCH ×3 (05:45→21:24)
[2020-05-05 09:27] LABS: BASO % 0.7 % (0-2.0); EOS % 1.1 % (0-4.5); LYMPH % 4.4 % (8-40); MCH 30.1 pg (25.7-33.7); MCHC 33.5 g/dl (32.0-35.9); MEAN CELL VOLUME 89.8 fl (80-96); MEAN PLT VOLUME 8.1 fl (7.5-11.1); MONO % 7.7 % (3.8-10.2); NEUT % 86.1 % (42.8-82.8); PLATELET COUNT 177 K/MM3 (134-434); RBC 2.68 M/mm3 (4.00-5.60); RDW 14.5 % (11.9-15.9); WHITE BLOOD COUNT 5.9 K/mm3 (4.0-10.0)
[2020-05-05 09:44] LABS: ALBUMIN 2.4 g/dl (3.4-5.0)
[2020-05-05 09:45] LABS: CALCIUM 7.6 mg/dL (8.5-10.1); MAGNESIUM 2.8 mg/dL (1.8-2.4)
[2020-05-05 09:47] LABS: CREATININE 1.8 mg/dL (0.55-1.3); PHOSPHOROUS 3.4 mg/dL (2.5-4.9)
[2020-05-05 09:48] LABS: BILIRUBIN,TOTAL 0.6 mg/dL (0.2-1); TOT PROT 5.2 g/dl (6.4-8.2)
[2020-05-05] MEDS: ALBUTEROL SO4 HFA INHALER IH SCH ×4 (09:49→21:21)
[2020-05-05] MEDS: FERROUS SO4 325 MG TABLET (FP) PO SCH ×2 (09:49→17:55)
[2020-05-05] MEDS: guaiFENesin 600 MG TABLET.ER (FP) PO SCH ×2 (09:49→21:25)
[2020-05-05] MEDS: RANOLAZINE E.R. 500 MG TABLET (FP) PO SCH ×2 (09:49→21:25)
[2020-05-05] MEDS: LACTULOSE 20 GM/30 ML UDC (FOR ORAL USE ONLY) PO SCH (09:49)
[2020-05-05] MEDS: ASCORBIC ACID 500 MG TABLET (FP) PO SCH ×2 (09:50→21:25)
[2020-05-05] MEDS: CHOLECALCIFEROL (VIT D3) 1,000 UNIT (25 MCG) TABLET PO SCH (09:50)
[2020-05-05] MEDS: PANTOPRAZOLE SODIUM 40 MG VIAL IVPUSH SCH ×2 (09:50→21:26)
[2020-05-05] MEDS: FUROSEMIDE 40 MG TABLET (FP) PO SCH (09:50)
[2020-05-05] MEDS: BUDESONIDE/FORMETEROL FUMARATE 160/4.5 mcg INHALER IH SCH ×2 (09:50→21:26)
[2020-05-05] MEDS: amLODIPine BESYLATE 10 MG TABLET (FP) PO SCH (09:50)
[2020-05-05] MEDS: ZINC SULFATE 220 MG CAPSULE (FP) PO SCH (09:50)
[2020-05-05] MEDS: METOCLOPRAMIDE HCL INJECTION 10 MG/2 ML VIAL IVPUSH SCH ×2 (14:01→21:21)
[2020-05-05] MEDS: APIXABAN 2.5 MG TABLET PO SCH ×2 (14:03→21:26)
[2020-05-05] MEDS: CARVEDILOL 6.25 MG TABLET (FP) PO SCH ×2 (14:16→21:23)
[2020-05-05] MEDS: VANCOMYCIN HCL 1,250 MG in DEXTROSE 5%-WATER - 250 ML IVPB SCH (14:38)
[2020-05-05] MEDS ORDERED: PT OWN MED DRAWER 7, Y5N ONE (21:10)
[2020-05-05] MEDS: DOXAZOSIN MESYLATE 2 MG TABLET PO SCH (21:25)
[2020-05-05] MEDS: ATORVASTATIN CA 10 MG TABLET (FP) PO SCH (21:25)
[2020-05-05] MEDS: SENNOSIDES 8.6MG TABLET (FP) PO SCH (21:25)
[2020-05-06] MEDS: ACETAMINOPHEN 500 MG TABLET (FP) PO PRN (01:48)
[2020-05-06] MEDS: hydrALAZINE HCL 50 MG TABLET (FP) PO SCH ×3 (06:10→21:11)
[2020-05-06] MEDS: METOCLOPRAMIDE HCL INJECTION 10 MG/2 ML VIAL IVPUSH SCH ×3 (06:10→21:09)
[2020-05-06] MEDS: ALBUTEROL SO4 HFA INHALER IH SCH ×4 (08:00→21:12)
[2020-05-06] MEDS ORDERED: PT OWN MED DRAWER 7, Y5N ONE (09:22)
[2020-05-06] MEDS: APIXABAN 2.5 MG TABLET PO SCH (10:02)
[2020-05-06] MEDS: guaiFENesin 600 MG TABLET.ER (FP) PO SCH ×2 (10:02→21:11)
[2020-05-06] MEDS: LACTULOSE 20 GM/30 ML UDC (FOR ORAL USE ONLY) PO SCH (10:02)
[2020-05-06] MEDS: RANOLAZINE E.R. 500 MG TABLET (FP) PO SCH ×2 (10:02→21:10)
[2020-05-06] MEDS: FUROSEMIDE 40 MG TABLET (FP) PO SCH (10:02)
[2020-05-06] MEDS: FERROUS SO4 325 MG TABLET (FP) PO SCH ×2 (10:02→17:30)
[2020-05-06] MEDS: CHOLECALCIFEROL (VIT D3) 1,000 UNIT (25 MCG) TABLET PO SCH (10:03)
[2020-05-06] MEDS: BUDESONIDE/FORMETEROL FUMARATE 160/4.5 mcg INHALER IH SCH ×2 (10:03→21:09)
[2020-05-06] MEDS: CARVEDILOL 6.25 MG TABLET (FP) PO SCH ×2 (10:03→21:10)
[2020-05-06] MEDS: ASCORBIC ACID 500 MG TABLET (FP) PO SCH (10:03)
[2020-05-06] MEDS: ZINC SULFATE 220 MG CAPSULE (FP) PO SCH (10:03)
[2020-05-06] MEDS: amLODIPine BESYLATE 10 MG TABLET (FP) PO SCH (10:03)
[2020-05-06] MEDS: PANTOPRAZOLE SODIUM 40 MG VIAL IVPUSH SCH ×2 (10:03→21:12)
[2020-05-06 10:16] LABS: EOS % 0.7 % (0-4.5); HEMATOCRIT 22.9 % (35.4-49); HEMOGLOBIN 7.6 GM/dL (11.7-16.9); LYMPH % 4.3 % (8-40); MCH 29.8 pg (25.7-33.7); MCHC 33.1 g/dl (32.0-35.9); MEAN CELL VOLUME 90.1 fl (80-96); MEAN PLT VOLUME 8.3 fl (7.5-11.1); MONO % 6.5 % (3.8-10.2); NEUT % 87.5 % (42.8-82.8); PLATELET COUNT 168 K/MM3 (134-434); RBC 2.54 M/mm3 (4.00-5.60); RDW 14.5 % (11.9-15.9); WHITE BLOOD COUNT 5.5 K/mm3 (4.0-10.0)
[2020-05-06 10:38] LABS: POTASSIUM 4.1 mmol/L (3.5-5.1)
[2020-05-06 10:43] LABS: CALCIUM 7.6 mg/dL (8.5-10.1)
[2020-05-06 10:44] LABS: ALBUMIN 2.4 g/dl (3.4-5.0); BLOOD UREA NITROGEN 67.4 mg/dL (7-18)
[2020-05-06 10:45] LABS: CREATININE 1.9 mg/dL (0.55-1.3); PHOSPHOROUS 3.7 mg/dL (2.5-4.9)
[2020-05-06 10:47] LABS: BILIRUBIN,TOTAL 0.7 mg/dL (0.2-1); TOT PROT 4.9 g/dl (6.4-8.2)
[2020-05-06] MEDS: SENNOSIDES 8.6MG TABLET (FP) PO SCH (21:10)
[2020-05-06] MEDS: ATORVASTATIN CA 10 MG TABLET (FP) PO SCH (21:11)
[2020-05-06] MEDS: DOXAZOSIN MESYLATE 2 MG TABLET PO SCH (21:12)
[2020-05-07] MEDS: METOCLOPRAMIDE HCL INJECTION 10 MG/2 ML VIAL IVPUSH SCH ×3 (04:12→23:07)
[2020-05-07] MEDS: hydrALAZINE HCL 50 MG TABLET (FP) PO SCH ×3 (05:01→23:08)
[2020-05-07] MEDS: FERROUS SO4 325 MG TABLET (FP) PO SCH ×2 (08:33→18:34)
[2020-05-07] MEDS: ALBUTEROL SO4 HFA INHALER IH SCH ×4 (08:34→23:07)
[2020-05-07] MEDS: guaiFENesin 600 MG TABLET.ER (FP) PO SCH ×2 (09:08→23:08)
[2020-05-07] MEDS: amLODIPine BESYLATE 10 MG TABLET (FP) PO SCH (09:08)
[2020-05-07] MEDS: PANTOPRAZOLE SODIUM 40 MG VIAL IVPUSH SCH ×2 (09:08→23:10)
[2020-05-07] MEDS: FUROSEMIDE 40 MG TABLET (FP) PO SCH (09:08)
[2020-05-07] MEDS: CHOLECALCIFEROL (VIT D3) 1,000 UNIT (25 MCG) TABLET PO SCH (09:08)
[2020-05-07] MEDS: LACTULOSE 20 GM/30 ML UDC (FOR ORAL USE ONLY) PO SCH (09:08)
[2020-05-07] MEDS: CARVEDILOL 6.25 MG TABLET (FP) PO SCH ×2 (09:08→23:09)
[2020-05-07] MEDS: RANOLAZINE E.R. 500 MG TABLET (FP) PO SCH ×2 (09:08→23:08)
[2020-05-07] MEDS: BUDESONIDE/FORMETEROL FUMARATE 160/4.5 mcg INHALER IH SCH ×2 (09:09→23:09)
[2020-05-07 09:39] LABS: HEMOGLOBIN 7.4 GM/dL (11.7-16.9); MCHC 33.6 g/dl (32.0-35.9); MEAN CELL VOLUME 89.4 fl (80-96); MEAN PLT VOLUME 8.2 fl (7.5-11.1); PLATELET COUNT 162 K/MM3 (134-434); RBC 2.46 M/mm3 (4.00-5.60); RDW 14.7 % (11.9-15.9); WHITE BLOOD COUNT 5.9 K/mm3 (4.0-10.0)
[2020-05-07 09:52] LABS: POTASSIUM 4.3 mmol/L (3.5-5.1)
[2020-05-07 09:53] LABS: ALBUMIN 2.5 g/dl (3.4-5.0); BLOOD UREA NITROGEN 66.2 mg/dL (7-18); CALCIUM 7.5 mg/dL (8.5-10.1)
[2020-05-07 09:56] LABS: CREATININE 1.8 mg/dL (0.55-1.3)
[2020-05-07 09:59] LABS: BILIRUBIN,TOTAL 0.4 mg/dL (0.2-1); TOT PROT 5.1 g/dl (6.4-8.2)
[2020-05-07] MEDS ORDERED: PT OWN MED DRAWER 7, Y5N ONE (22:47)
[2020-05-07] MEDS: ATORVASTATIN CA 10 MG TABLET (FP) PO SCH (23:08)
[2020-05-07] MEDS: SENNOSIDES 8.6MG TABLET (FP) PO SCH (23:09)
[2020-05-07] MEDS: DOXAZOSIN MESYLATE 2 MG TABLET PO SCH (23:09)
[2020-05-08] MEDS: hydrALAZINE HCL 50 MG TABLET (FP) PO SCH ×3 (06:05→23:18)
[2020-05-08] MEDS: METOCLOPRAMIDE HCL INJECTION 10 MG/2 ML VIAL IVPUSH SCH ×3 (06:05→23:17)
[2020-05-08] MEDS: FERROUS SO4 325 MG TABLET (FP) PO SCH ×2 (08:32→17:56)
[2020-05-08] MEDS: ALBUTEROL SO4 HFA INHALER IH SCH ×4 (08:47→23:16)
[2020-05-08 10:00] LABS: HEMATOCRIT 27.9 % (35.4-49); HEMOGLOBIN 9.6 GM/dL (11.7-16.9); MCH 30.4 pg (25.7-33.7); MCHC 34.4 g/dl (32.0-35.9); MEAN CELL VOLUME 88.6 fl (80-96); MEAN PLT VOLUME 7.7 fl (7.5-11.1); PLATELET COUNT 158 K/MM3 (134-434); RBC 3.15 M/mm3 (4.00-5.60); RDW 14.6 % (11.9-15.9); WHITE BLOOD COUNT 5.5 K/mm3 (4.0-10.0)
[2020-05-08] MEDS: BUDESONIDE/FORMETEROL FUMARATE 160/4.5 mcg INHALER IH SCH ×2 (10:04→23:19)
[2020-05-08] MEDS: PANTOPRAZOLE SODIUM 40 MG VIAL IVPUSH SCH ×2 (10:04→23:17)
[2020-05-08] MEDS: CHOLECALCIFEROL (VIT D3) 1,000 UNIT (25 MCG) TABLET PO SCH (10:04)
[2020-05-08] MEDS: guaiFENesin 600 MG TABLET.ER (FP) PO SCH ×2 (10:04→23:18)
[2020-05-08] MEDS: RANOLAZINE E.R. 500 MG TABLET (FP) PO SCH ×2 (10:04→23:17)
[2020-05-08] MEDS: LACTULOSE 20 GM/30 ML UDC (FOR ORAL USE ONLY) PO SCH (10:04)
[2020-05-08] MEDS: CARVEDILOL 6.25 MG TABLET (FP) PO SCH ×2 (10:05→23:18)
[2020-05-08] MEDS: amLODIPine BESYLATE 10 MG TABLET (FP) PO SCH (10:05)
[2020-05-08] MEDS: FUROSEMIDE 40 MG TABLET (FP) PO SCH (10:05)
[2020-05-08 10:26] LABS: POTASSIUM 4.3 mmol/L (3.5-5.1)
[2020-05-08 10:32] LABS: ALBUMIN 2.6 g/dl (3.4-5.0); BLOOD UREA NITROGEN 62.5 mg/dL (7-18); CALCIUM 7.4 mg/dL (8.5-10.1)
[2020-05-08 10:35] LABS: CREATININE 1.9 mg/dL (0.55-1.3); PHOSPHOROUS 3.2 mg/dL (2.5-4.9)
[2020-05-08 10:37] LABS: BILIRUBIN,TOTAL 0.6 mg/dL (0.2-1); TOT PROT 5.3 g/dl (6.4-8.2)
[2020-05-08] MEDS: DOXYCYCLINE HYCLATE 100 MG CAPSULE PO SCH (17:56)
[2020-05-08] MEDS: DOXAZOSIN MESYLATE 2 MG TABLET PO SCH (23:17)
[2020-05-08] MEDS: SENNOSIDES 8.6MG TABLET (FP) PO SCH (23:18)
[2020-05-08] MEDS: ATORVASTATIN CA 10 MG TABLET (FP) PO SCH (23:18)
[2020-05-09] MEDS: METOCLOPRAMIDE HCL INJECTION 10 MG/2 ML VIAL IVPUSH SCH ×2 (04:27→13:41)
[2020-05-09] MEDS: hydrALAZINE HCL 50 MG TABLET (FP) PO SCH ×2 (05:11→13:40)
[2020-05-09 10:01] LABS: HEMATOCRIT 28.7 % (35.4-49); HEMOGLOBIN 9.7 GM/dL (11.7-16.9); MCH 30.1 pg (25.7-33.7); MCHC 33.8 g/dl (32.0-35.9); MEAN CELL VOLUME 89.2 fl (80-96); MEAN PLT VOLUME 7.8 fl (7.5-11.1); PLATELET COUNT 160 K/MM3 (134-434); RBC 3.21 M/mm3 (4.00-5.60); RDW 14.6 % (11.9-15.9); WHITE BLOOD COUNT 6.1 K/mm3 (4.0-10.0)
[2020-05-09] MEDS: ALBUTEROL SO4 HFA INHALER IH SCH ×3 (10:55→18:21)
[2020-05-09] MEDS: FERROUS SO4 325 MG TABLET (FP) PO SCH ×2 (10:56→18:21)
[2020-05-09] MEDS: RANOLAZINE E.R. 500 MG TABLET (FP) PO SCH (10:56)
[2020-05-09] MEDS: CARVEDILOL 6.25 MG TABLET (FP) PO SCH (10:56)
[2020-05-09] MEDS: guaiFENesin 600 MG TABLET.ER (FP) PO SCH (10:56)
[2020-05-09] MEDS: amLODIPine BESYLATE 10 MG TABLET (FP) PO SCH (10:56)
[2020-05-09] MEDS: FUROSEMIDE 40 MG TABLET (FP) PO SCH (10:56)
[2020-05-09] MEDS: CHOLECALCIFEROL (VIT D3) 1,000 UNIT (25 MCG) TABLET PO SCH (10:56)
[2020-05-09] MEDS: PANTOPRAZOLE SODIUM 40 MG VIAL IVPUSH SCH (10:57)
[2020-05-09] MEDS: DOXYCYCLINE HYCLATE 100 MG CAPSULE PO SCH ×2 (10:57→18:21)
[2020-05-09] MEDS: LACTULOSE 20 GM/30 ML UDC (FOR ORAL USE ONLY) PO SCH (10:57)
[2020-05-09] MEDS: BUDESONIDE/FORMETEROL FUMARATE 160/4.5 mcg INHALER IH SCH (10:57)
[2020-05-09 17:19] VITALS: TEMP 97.5
[2020-05-09 18:28] VITALS: BP 147/46; PULSE 63
== END 2020-05-09 19:46 | DRG 177 ==
LOC: JER 15:03 → JERBED 17:21 → J6WEST-2 04-21 00:57 → J5S 04-22 17:28
PROVIDERS: ADMIT Student in an Organized Health Care Education/Training Program; ATTEND Student in an Organized Health Care Education/Training Program
PROC: 8E0ZXY6 Isolation (ICD-10-PCS; 2020-04-20)
PROC: XW13325 Transfusion of Convalescent Plasma (Nonautologous) into Peripheral Vein, Percutaneous Approach, New Technology Group 5 (ICD-10-PCS; 2020-04-22)
PROC: 30233N1 Transfusion of Nonautologous Red Blood Cells into Peripheral Vein, Percutaneous Approach (ICD-10-PCS; principal; 2020-04-27)
DX: U07.1 COVID-19 (principal); J12.82 Pneumonia due to coronavirus disease 2019; J96.21 Acute and chronic respiratory failure with hypoxia; G93.41 Metabolic encephalopathy; R64 Cachexia; Z68.1 Body mass index [BMI] 19.9 or less, adult; N17.9 Acute kidney failure, unspecified; I13.0 Hypertensive heart and chronic kidney disease with heart failure and stage 1 through stage 4 chronic kidney disease, or unspecified chronic kidney disease; I50.32 Chronic diastolic (congestive) heart failure; J84.9 Interstitial pulmonary disease, unspecified; K92.2 Gastrointestinal hemorrhage, unspecified; E46 Unspecified protein-calorie malnutrition; R50.9 Fever, unspecified; I25.10 Atherosclerotic heart disease of native coronary artery without angina pectoris; E78.5 Hyperlipidemia, unspecified; K21.9 Gastro-esophageal reflux disease without esophagitis; I48.0 Paroxysmal atrial fibrillation; R74.01 Elevation of levels of liver transaminase levels; D63.1 Anemia in chronic kidney disease; E11.22 Type 2 diabetes mellitus with diabetic chronic kidney disease; R91.1 Solitary pulmonary nodule; N18.9 Chronic kidney disease, unspecified; I73.9 Peripheral vascular disease, unspecified; R63.0 Anorexia; R41.0 Disorientation, unspecified; J43.9 Emphysema, unspecified; I65.29 Occlusion and stenosis of unspecified carotid artery; I27.20 Pulmonary hypertension, unspecified; G20 Parkinson's disease; F02.80 Dementia in other diseases classified elsewhere, unspecified severity, without behavioral disturbance, psychotic disturbance, mood disturbance, and anxiety; I25.2 Old myocardial infarction; E11.43 Type 2 diabetes mellitus with diabetic autonomic (poly)neuropathy; K31.84 Gastroparesis; K63.5 Polyp of colon; I34.0 Nonrheumatic mitral (valve) insufficiency; K59.09 Other constipation; K29.70 Gastritis, unspecified, without bleeding; I44.0 Atrioventricular block, first degree; R00.1 Bradycardia, unspecified; D50.9 Iron deficiency anemia, unspecified; Z85.46 Personal history of malignant neoplasm of prostate; Z99.81 Dependence on supplemental oxygen; Z66 Do not resuscitate
CPT/HCPCS: 36415; 36430; 36511; 71045-TC-FY; 71250-TC; 80048; 80053; 81003; 82248; 82272; 82550; 82728; 82803; 83010; 83605; 83615; 83735; 83880; 84100; 84484; 85025; 85027; 85045; 85379; 85610; 85730; 86140; 86738; 86850; 86900; 86901; 86922; 87040; 87070; 87077; 87205; 87804; 87899; 94761; 97116-GP; 97161-GP; 99285-25; C9803; G0480; J1100; P9017; P9038; P9058; U0003